=== PATIENT | female | born 1960 | race Caucasian/White ===

== ENCOUNTER 2020-04-24 10:02 | Outpatient (CLI) | payer OTHER, SELFPAY ==
--- NOTE | ~2020-04-24 | CT_ITS ---
EXAMINATION: CT chest abdomen pelvis w con DATE: 04/24/2020 11:17 INDICATION: Metastatic renal cell carcinoma TECHNIQUE: Transaxial computed tomographic images of the chest, abdomen, and pelvis were obtained aft er the administration of 100 cc of Omnipaque 350 intravenous contrast. The dose-length product (DLP) was 1094.51 mGy-cm. Automated exposure control and iterative reconstruction technique were employed. COMPARISON: 08/21/2019 FINDINGS: CHEST CT: There are changes of interval left upper lobectomy. There has been interval development of a 4.5 x 3. 1 cm soft tissue density in the aorticopulmonary window. The heart size is normal. There is no pleura l effusion or pneumothorax. There is a left paramediastinal rind of soft tissue density extending to the left hilum. There is mild thoracic spondylosis. ABDOMEN/PELVIS CT: Cysts of the liver measure up to 1.8 cm in the right hepatic lobe. The spleen, pancreas, and gallblad heather are normal. There are changes of right nephroureterectomy and right adrenalectomy. There is a sta ble adenoma of the left adrenal gland. The left kidney is unremarkable. No pathologically enlarged ab dominal or pelvic lymph nodes are identified. There is no free intraperitoneal gas or evidence of bow el obstruction. Streak artifact from bilateral hip arthroplasties limits evaluation of the pelvis. Th ere is severe lumbar spondylosis at L5-S1. IMPRESSION: 1. Changes of interval left upper lobectomy. 2. Soft tissue density mass in the aorticopulmonary window which could be postsurgical in nature carreno aleksandr is concerning for metastatic lymphadenopathy. 3. Left paramediastinal soft tissue density extending to the left hilum. Findings could also be posts urgical or metastatic disease. Reviewed, dictated and finalized at location A. IMPRESSION: 1. Changes of interval left upper lobectomy. 2. Soft tissue density mass in the aorticopulmonary window which could be posts urgical in nature however is concerning for metastatic lymphadenopathy. 3. Left paramediastinal soft tissue density extending to the left hilum. Findin gs could also be postsurgical or metastatic disease.
[2020-04-24 11:05] LABS: Estimated Glomerular Filt Rate > 60
== END 2020-04-24 10:03 | disposition home or self-care (01) ==
PROVIDERS: PCP Family Medicine
DX: C64.9 Malignant neoplasm of unspecified kidney, except renal pelvis (principal)
CPT/HCPCS: 36415; 71260; 74177; Q9967

== ENCOUNTER 2020-07-28 13:11 | Outpatient (CLI) | payer OTHER, SELFPAY ==
--- NOTE | ~2020-07-28 | MM_ITS ---
EXAMINATION: MM screening joe BI w jacquelin HISTORY: Screening mammogram TECHNIQUE: Craniocaudal and mediolateral oblique 3-D tomosynthesis images were obtained and synthetic 2-D images were generated. CAD analysis was submitted and interpreted. COMPARISON: 07/17/2019, 06/17/2018, 06/14/2017 bilateral digital screening mammogram examinations BREAST PARENCHYMAL COMPOSITION: There are scattered areas of fibroglandular density. FINDINGS: There is a biopsy marker on the right; history of prior right partial mastectomy and radiot herapy for breast cancer in 2004. Mild loss of volume of the right breast and stable fibroglandular asymmetry, unchanged since 07/17/2019 . There is no evidence of suspicious mass, calcification, or interval architectural distortion to sugge st malignancy in either breast. There has been no suspicious interval change. IMPRESSION: 1. No mammographic evidence of malignancy. 2. Recommend routine screening mammography in one year. BI-RADS Category 2: Benign finding(s). Reviewed, dictated and finalized at location A.
== END 2020-07-28 13:12 | disposition home or self-care (01) ==
PROVIDERS: PCP Family Medicine; Visit Provider Family Medicine
DX: Z12.31 Encounter for screening mammogram for malignant neoplasm of breast (principal)
CPT/HCPCS: 77063; 77067

== ENCOUNTER 2020-11-23 13:42 | Outpatient (CLI) | payer OTHER, SELFPAY ==
--- NOTE | ~2020-11-23 | DEXA_ITS ---
Bone Density Report Name: Suzette Shoemaker Age: 60 Sex: Female Ethnicity: White Date of : 1960 Indication: postmenopausal; history of glucocorticoids; cancer; Referring Provider: Javan Velasco Study: Bone densitometry was performed. Exam Date: November 23, 2020 Accession number: [id number] Bone Density: Region BMD T-score Z-score Classification AP Spine (L1-L4) 1.054 0.1 1.7 Normal World Health Organization criteria for BMD impression classify patients as: Normal (T-score at or above -1.0), Osteopenia (T-score between -1.0 and -2.5), or Osteoporosis (T-score at or below -2.5). Previous Exams: Region Exam Age BMD T-score BMD Change BMD Change Date g/cm2 vs Baseline vs Previous AP Spine(L1-L4) 11/23/2020 60 1.054 0.1 -0.075(-6.7%)# -0.075(-6.7%)# 05/02/2010 50 1.129 0.7 *Denotes significance at 95% confidence level, LSC for AP Spine = 0.022 g/cm2 Clinical Information Provided by Patient: Has taken Glucocorticoids Has the following medical conditions: Cancer Patient maximum height was 65 No regular weight bearing exercise Drinks caffeinated beverages Onset of menses at age 11 Number of children 1 Impression: The patient has normal bone mass. The patient has risk factors, including: history of glucocorticoid therapy. No significant bone loss was observed. Discussion: BONE DENSITY IS ABOVE THE MINIMUM DESIRABLE LEVEL AT ALL SKELETAL SITES TESTED. This patient?s bone mineral density is above the minimum desirable level (T-score -1.0 or better) at all sites measured. The patient should follow a healthful lifestyle (good nutrition with adequate calcium and vitamin D, and appropriate weight-bearing exercise). Follow-Up: Consider repeating this study in 5 years or sooner if there is some new clinical indication. Reported by: RUDDY on 11/23/2020 2:10:00 PM. Reviewed, dictated and finalized at location Anshu FRANKLIN
== END 2020-11-23 13:43 | disposition home or self-care (01) ==
PROVIDERS: PCP Family Medicine; Visit Provider Physician Assistant
DX: Z13.820 Encounter for screening for osteoporosis (principal); Z78.0 Asymptomatic menopausal state
CPT/HCPCS: 77080

== ENCOUNTER 2021-07-25 15:24 | Outpatient (CLI) | payer OTHER, SELFPAY ==
--- NOTE | ~2021-07-25 | MM_ITS ---
EXAMINATION: MM screening joe BI w jacquelin HISTORY: Screening TECHNIQUE: Craniocaudal and mediolateral oblique 3-D tomosynthesis images were obtained and synthetic 2-D images were generated. CAD analysis was submitted and interpreted. COMPARISON: Comparison to multiple prior studies sequentially, with oldest reviewed study dated 06/10. BREAST PARENCHYMAL COMPOSITION: There are scattered areas of fibroglandular density. FINDINGS: Bilateral breast asymmetries are stable. There is no evidence of suspicious mass, calcifica tion, or architectural distortion to suggest malignancy in either breast. There has been no suspiciou s interval change. IMPRESSION: 1. No mammographic evidence of malignancy. 2. Recommend routine screening mammography in one year. BI-RADS Category 1: Negative Reviewed, dictated and finalized at location A.
== END 2021-07-25 15:25 | disposition home or self-care (01) ==
LOC: ANHIMG 15:26
PROVIDERS: PCP Family Medicine; Visit Provider Family Medicine
DX: Z12.31 Encounter for screening mammogram for malignant neoplasm of breast (principal)
CPT/HCPCS: 77063; 77067

== ENCOUNTER 2022-08-16 11:28 | Outpatient (CLI) | payer OTHER, SELFPAY ==
--- NOTE | ~2022-08-16 | MM_ITS ---
EXAMINATION: MM screening joe BI w jacquelin HISTORY: Screening mammogram, family history of breast cancer in her sister. TECHNIQUE: Craniocaudal and mediolateral oblique 3-D tomosynthesis images were obtained and synthetic 2-D images were generated. CAD analysis was submitted and interpreted. COMPARISON: 07/25/2021, 07/28/2020, 07/17/2019 BREAST PARENCHYMAL COMPOSITION: There are scattered areas of fibroglandular density. FINDINGS: There are stable lumpectomy changes in the upper outer quadrant of the right breast. No enrike picious mass, calcification, or architectural distortion are identified in either breast to suggest m alignancy. There has been no suspicious interval change. IMPRESSION: 1. No mammographic evidence of malignancy. 2. Recommend routine screening mammography in one year. BI-RADS Category 2: Benign finding(s). Reviewed, dictated and finalized at location A.
== END 2022-08-16 11:29 | disposition home or self-care (01) ==
PROVIDERS: PCP Family Medicine; Visit Provider Family Medicine
DX: Z12.31 Encounter for screening mammogram for malignant neoplasm of breast (principal)
CPT/HCPCS: 77063; 77067

== ENCOUNTER 2023-09-05 15:09 | Outpatient (CLI) | payer OTHER, SELFPAY ==
--- NOTE | ~2023-09-05 | MM_ITS ---
EXAMINATION: MM screening joe BI w jacquelin HISTORY: Screening mammogram TECHNIQUE: Craniocaudal and mediolateral oblique 3-D tomosynthesis images were obtained and synthetic 2-D images were generated. CAD analysis was submitted and interpreted. COMPARISON: 09/16/2022, 07/25/2021, 07/28/2020 bilateral screening mammogram examinations BREAST PARENCHYMAL COMPOSITION: There are scattered areas of fibroglandular density. FINDINGS: Stable mild asymmetry in the upper mid outer right breast; history of prior right partial m astectomy for breast cancer. The greater in the very very. The There is no evidence of suspicious mas s, calcification, or architectural distortion to suggest malignancy in either breast. There has been no suspicious interval change. IMPRESSION: 1. No mammographic evidence of malignancy. 2. Recommend routine screening mammography in one year. BI-RADS Category 2: Benign finding(s). Reviewed, dictated and finalized at location A.
== END 2023-09-05 15:10 | disposition home or self-care (01) ==
LOC: ANHIMG 15:13
PROVIDERS: PCP Family Medicine; Visit Provider Family Medicine
DX: Z12.31 Encounter for screening mammogram for malignant neoplasm of breast (principal)
CPT/HCPCS: 77063; 77067

== ENCOUNTER → 2023-10-30 11:57 | Outpatient (CLI) | payer OTHER, SELFPAY ==
--- NOTE | ~2023-10-30 | XR_ITS ---
Left Knee Technique: AP, lateral, and sunrise views were obtained. Clinical History: Pain Findings: No fracture or dislocation is seen. There is moderate medial compartment degenerative gregg e, and mild to moderate lateral and patellofemoral compartment spurring. Soft tissues are unremarkabl e. No joint effusion is seen. Impression: Tricompartmental degenerative change, as above, worst in the medial compartment. Reviewed, dictated and finalized at location M. FLEET MANAGER Impression: Tricompartmental degenerative change, as above, worst in the medial compartment .
== END ==
PROVIDERS: PCP Physician Assistant; Visit Provider Physician Assistant
DX: M17.12 Unilateral primary osteoarthritis, left knee (principal)
CPT/HCPCS: 73562

== ENCOUNTER 2024-12-17 14:50 | Outpatient (CLI) | payer OTHER, SELFPAY ==
--- NOTE | ~2024-12-17 | MM_ITS ---
EXAMINATION: MM screening joe BI w jacquelin HISTORY: Screening TECHNIQUE: Craniocaudal and mediolateral oblique 3-D tomosynthesis images were obtained and synthetic 2-D images were generated. CAD analysis was submitted and interpreted. COMPARISON: Comparison to multiple prior studies sequentially, with oldest reviewed study dated 04/2018. BREAST PARENCHYMAL COMPOSITION: Not dense: There are scattered areas of fibroglandular density. FINDINGS: There is developing architectural distortion in the upper outer quadrant of the right breas t with associated asymmetry. The left breast is stable without evidence for malignancy. IMPRESSION: 1. Focal developing architectural distortion upper outer quadrant of the right breast. 2. Additional mammographic views and possible breast ultrasound are recommended. BI-RADS Category 0: Incomplete: Needs additional imaging evaluation. Reviewed, dictated and finalized at location B. IAL NEEDS TUTOR IMPRESSION: 1. Focal developing architectural distortion upper outer quadrant of the right breast. 2. Additional mammographic views and possible breast ultrasound are recommended . BI-RADS Category 0: Incomplete: Needs additional imaging evaluation.
--- OUTSIDE RECORDS SUMMARY | 2024-12-17 15:34 | XMS_ITS | Referral Summary ---
Author Organization [facility] Address [address] [place] [address] Care Team Providers Care Chimney Builder Brick Name Role Phone Myriam Jorgensen MD Primary Care Provider [phone] Source Comments [facility],non-owned Affiliates and Associated Physician Practices is amultiple site organization consisting of ambulatory clinics and hospital sitesin [place], [place], [place] and [place]. This disclosure is being madepursuant to the Care Everywhere program and may not contain all information available regarding this patient. Last updated 18.[facility] Encounters Date Type Department Care Team Description 12/09/2024 Travel 12/09/2024 9:30 AM SPANISH INTERPRETER/TRANSLATOR Office Visit [facility] - Nephrology [facility] [facility] [place] [phone] Kelly Coates, OPEN WINDER-Tito Ruiz MD Proteinuria, unspecified type; Metastatic renal cell carcinoma, unspecified laterality (HCC) 11/27/2024 Telephone [facility] - Hematology/Oncology [address] [place] [address] Wai Tse MD Medication Prior Auth Request; Medication Management 11/27/2024 Telephone [facility] - Hematology/Oncology [address] [place] [phone] Wai Tse MD Medication Prior Auth Request 11/07/2024 Refill [facility] - Hematology/Oncology [address] [place] [phone] Wai Tse MD Refill Request 11/07/2024 Telephone [facility] - Hematology/Oncology [address] [place] [phone] Kelly Coates APRN-CNP Follow-up 11/07/2024 Orders Only [facility] - Hematology/Oncology [address] [place] [phone] Kelly Coates APRN-CNP Proteinuria, unspecified type ; Metastatic renal cell carcinoma, unspecified laterality (HCC) 11/06/2024 Orders Only [facility] - Hematology/Oncology [address] [place] [phone] Kelly Coates APRN-CNP Proteinuria, unspecified type 10/23/2024 Telephone [facility] - Hematology/Oncology [address] [place] [phone] Kelly Coates APRN-PILOT BOAT OPERATOR Follow-up 10/23/2024 Telephone [facility] - Hematology/Oncology [address] [place] [phone] Kelly Coates APRN-CNP Abnormal Lab from Last 3 Months Allergies Active Allergy Reactions Criticality Noted Date Comments Hydrochlorothiazide Other 05/10/2022 She has severe low sodium with dosing (from 139>>126 in 1 week) Medications * Be aware that medications may not be up to date on this document. Alwaysverify current medications with the patient. Medication Sig Dispensed Refills Start Date End Date Status Multiple Vitamins-Minerals (DAILY COMBO MULTI VITAMINS PO) Take 1 tablet by mouth once daily Active BEVACIZUMAB IV Every 21 days Last dose in Jul 2024 Active losartan (COZAAR) 100 MG tablet Take 1 (one) tablet by mouth once daily 10/17/2013 Active rosuvastatin (Crestor) 20 MG tablet Take 1 (one) tablet by mouth once daily Active carvedilol CR 24hr (Coreg CR) 10 MG capsule Take 1 (one) capsule by mouth at bedtime Total dose = 30 mg nightly. 30 capsule 11 05/28/2024 Active carvedilol CR 24hr (Coreg CR) 20 MG capsule Take 1 (one) capsule by mouth at bedtime 30 capsule 9 07/22/2024 Active amLODIPine (Norvasc) 10 MG tabletIndications:Ma lignant neoplasm of right kidney, except renal pelvis (HCC),Hypertension, unspecified type TAKE 1 TABLET BY MOUTH EVERY DAY 90 tablet 3 11/07/2024 Active levothyroxine (Synthroid) 25 MCG tablet Take 1 (one) tablet by mouth once daily 10/23/2024 Active empagliflozin (Jardiance) 10 MG tablet Take 1 (one) tablet by mouth once daily for 60 days 30 tablet 1 12/09/2024 02/07/2025 Active Active Problems Problem Noted Date Diagnosed Date Gilbert syndrome 06/27/2022 Elevated liver enzymes 03/17/2021 Cancer, metastatic to lung 11/03/2019 Nonspecific abnormal electrocardiogram (ECG) (EK G) 11/03/2019 S/p nephrectomy 09/23/2019 Primary osteoarthritis of right hip 06/02/2019 Overview (03/17/2021): Added automatically from request for surgery [id number] Personal history of malignant neoplasm of breast 12/04/2014 Encounter for antineoplastic chemotherapy 2013 Malignant neoplasm of kidney excluding renal pel vis 09/25/2014 Primary malignant neoplasm 02/01/2014 Other pulmonary embolism without acute cor pulmo nale 06/17/2013 Immunizations Name Administration Dates Next Due [employer] primary monoval ent 12+ yr 0.3mL Purple cap 11/03/2021,12/27/2020,12/06/2020 HEP B VACCINE 08/25/2021 INFLUENZA VACCINE 08/18/2021 PNEUMOCOCCAL PPSV23 09/27/2014 Social History Tobacco Use Types Packs/Day Years Used Date Smoking Tobacco: Former Cigarettes Q uit: 07/28/1978 Smokeless Tobacco: Never Comments:only smoked occ in college Alcohol Use Standard Drinks/Week Comments Yes 1.7 (1 standard drink = 0.6 oz p ure alcohol) occ Sex and Gender Information Value Date Recorded Sex Assigned at Not on file Gender Identity Female 02/13/2024 7:42 AM CDT Sexual Orientation Not on file Last Filed Vital Signs Vital Sign Reading Time Taken Comments Blood Pressure 146/91 12/09/2024 9:57 AM SPANISH INTERPRETER/TRANSLATOR Pulse 78 12/09/2024 9:55 AM SPANISH INTERPRETER/TRANSLATOR Temperature 36.1 C (97 F) 12/09/2024 9:55 AM SPANISH INTERPRETER/TRANSLATOR Respiratory Rate 18 08/20/2024 9:56 AM CDT Oxygen Saturation 98% 12/09/2024 9:55 AM SPANISH INTERPRETER/TRANSLATOR Inhaled Oxygen Concentration - - Weight 94.3 kg (208 lb) 12/09/2024 9:55 AM SPANISH INTERPRETER/TRANSLATOR Height 165.1 cm (5' 5 ) 06/18/2024 10:23 AM CDT Body Mass Index 34.61 06/18/2024 10:23 AM CDT Functional Status Functional Status Response Date of Assess ment Is person deaf or have serious hearing difficult y? No 01/01/2020 Is person blind or have serious difficulty seein g? No 01/01/2020 Does person have serious dif ficulty walking/climbing stairs? No 01/01/2020 Does person have difficulty dressing/bathing? No 01/01/2020 Does person have difficulty doing errands alone? No 01/01/2020 Cognitive Status Response Date of Assessm ent Does person have difficulty concentrating/remembering/making decisions? No 01/01/2020 Plan of Treatment Upcoming Encounters Date Type Department Care Team (Late st Contact Info) Description 12/18/2024 9:30 AM SPANISH INTERPRETER/TRANSLATOR Appointment [facility] CAT SCAN [address] [place] [phone] Ronnie Mcqueen MD [address] [place] [address] 12/22/2024 12:20 PM SPANISH INTERPRETER/TRANSLATOR Appointment [facility] INFUSION CENTER [address] [place] [address] 12/22/2024 1:00 PM SPANISH INTERPRETER/TRANSLATOR Office Visit [facility] - Hematology/Oncology [address] [place] [phone] Wai Tse MD [address] [place] [address] OF HEMATOLOGY & [place] [address] 12/23/2024 9:00 AM SPANISH INTERPRETER/TRANSLATOR Appointment [facility] RAD ONC [address] [place] [address] Ronnie Mcqueen MD [address] [place] [address] 01/02/2025 1:15 PM SPANISH INTERPRETER/TRANSLATOR Appointment [facility] [address] [place] [address] Tito Schwartz MD [address] [place] [address] 01/12/2025 12:20 PM SPANISH INTERPRETER/TRANSLATOR Appointment [facility] INF[facility]ION CENTER [address] [place] [address] 01/13/2025 9:00 AM SPANISH INTERPRETER/TRANSLATOR Office Visit [facility] - Nephrology [address] [facility] [place] [address] Tito Schwartz MD [address] [place] [address] Goals Goal Patient Goal Type Associated Problems Recent Progress Patient-Stated? Author Medication Management General On track( 025 9:54 AM SPANISH INTERPRETER/TRANSLATOR) Adeola Grant, RN Note: Expected end date: ongoing Interventions: Take all medications as prescribed Procedures Procedure Name Priority Date/Time Associated Diagnosis Comments URINALYSIS REFLEX TO MICROSCOPIC NO CULTURE Routine 11/06/2024 11:56 AM SPANISH INTERPRETER/TRANSLATOR Proteinuria, unspecified type LAB RESULTS ORDER 11/06/2024 URINALYSIS REFLEX MICROSCOPIC REFLEX CULTURE Routine 09/24/2024 11:37 AM SPANISH INTERPRETER/TRANSLATOR Proteinuria, unspecified type Metastatic renal cell carcinoma, unspecified laterality (HCC) LAB RESULTS ORDER 09/24/2024 COMPREHENSIVE METABOLIC PANEL STAT 08/20/2024 9:52 AM CDT Malignant neoplasm of kidney excluding renal pelvis, unspecified laterality (HCC) HEPATITIS C RNA QUANTITATIVE Routine 03/17/2021 10:19 AM CDT Elevated liver enzymes from Last 3 Months or Most Recently Relevant to Health Maintenance Results * (ABNORMAL) URINALYSIS REFLEX TO MICROSCOPIC NO CULTURE (11/06/2024 11:56 AM SPANISH INTERPRETER/TRANSLATOR) Specific [place] UA 1.016 1.005 - 1.030 [facility] INSURANCE BILL pH UA 7.0 5.0 - 7.5 [facility] INSURANCE BILL Color UA Yellow Yellow [facility] INSURANCE BILL Appearance Clear Clear [facility] INSURANCE BILL Leukocyte UA Negative Negative [facility] INSURANCE BILL Protein UA 4+(A) Negative/Tra ce [facility] INSURANCE BILL Glucose UA Negative Negative [facility] INSURANCE BILL Ketone UA Negative Negative [facility] INSURANCE BILL Occult Blood Urine Trace(A) Negative [facility] INSURANCE BILL Bilirubin UA Negative Negative [facility] INSURANCE BILL Urobilinogen 0.2 0.2 - 1.0 mg/dL [facility] INSURANCE BILL Nitrite UA Negative Negative [facility] INSURANCE BILL Microscopic Examination Urine See below: [facility] INSURANCE BILL Comment: Microscopic was indicated and was performed. Performed at: [facility] [address] [id number] Bar Waiter/Waitress: Alejandro Doshi PhD, Phone: [phone] WBC UA 6-10(A) 0 - 5 /hpf [facility] INSURANCE BILL RBC UA 0-2 0 - 2 /hpf [facility] INSURANCE BILL Epithelial Cells (non renal) 0-10 0 - 10 /hpf [facility] INSURANCE BILL Casts ua None seen None seen /lpf [facility] INSURANCE BILL Bacteria UA Few None seen/Few [facility] INSURANCE BILL Urine URINE SPECIMEN OBTAINED BY CLEAN CATCH PROCEDURE / Unknown 11/06/2024 11:56 AM SPANISH INTERPRETER/TRANSLATOR 11/06/2024 Narrative [facility] INSURANCE BILL - 11/07/2024 5:35 AM SPANISH INTERPRETER/TRANSLATOR Performed at: [facility] [address] [id number] Bar Waiter/Waitress: Alejandro Doshi PhD, Phone: [phone] Kelly Coates OPEN WINDER-PILOT BOAT OPERATOR LAB - URINAL YSIS ORDERABLES [facility] INSURANCE BILL [address] [place] [address] * LAB RESULTS ORDER (11/06/2024) Only the most recent of2 resultswithin the time period is included. 11/06/2024 Narrative 11/06/2024 Ordered by an unspecified provider. Scanned Document LAB - THERAPEUTIC DR UG MONITORING ORDERABLES * (ABNORMAL) URINALYSIS REFLEX MICROSCOPIC REFLEX CULTURE (09/24/2024 11:37 AM SPANISH INTERPRETER/TRANSLATOR) Specific [place] UA 1.009 1.005 - 1.030 [facility] INSURANCE BILL pH UA 6.5 5.0 - 7.5 [facility] INSURANCE BILL Color UA Yellow Yellow [facility] INSURANCE BILL Appearance Clear Clear [facility] INSURANCE BILL Leukocyte UA Negative Negative [facility] INSURANCE BILL Protein UA 3+(A) Negative/Tra ce [facility] INSURANCE BILL Glucose UA Negative Negative [facility] INSURANCE BILL Ketone UA Negative Negative [facility] INSURANCE BILL Occult Blood Urine Negative Negative [facility] INSURANCE BILL Bilirubin UA Negative Negative [facility] INSURANCE BILL Urobilinogen 0.2 0.2 - 1.0 mg/dL [facility] INSURANCE BILL Nitrite UA Negative Negative [facility] INSURANCE BILL Microscopic Examination Urine See below: [facility] INSURANCE BILL Comment:Microscopic was diego cated and was performed. Urinalysis Reflex Comment [facility] INSURANCE BILL Comment: This specimen will not reflex to a Urine Culture. Performed at: - [facility] [address] [place], [place] [id number] Bar Waiter/Waitress: Alejandro Doshi PhD, Phone: [phone] WBC UA None seen 0 - 5 /hpf [facility] INSURANCE BILL RBC UA None seen 0 - 2 /hpf [facility] INSURANCE BILL Epithelial Cells (non renal) 0-10 0 - 10 /hpf [facility] INSURANCE BILL Casts ua None seen None seen /lpf [facility] INSURANCE BILL Bacteria UA None seen None seen/Few [facility] INSURANCE BILL Urine URINE SPECIMEN OBTAINED BY CLEAN CATCH PROCEDURE / Unknown 09/24/2024 11:37 AM SPANISH INTERPRETER/TRANSLATOR 09/24/2024 Narrative [facility] INSURANCE BILL - 09/25/2024 3:36 AM SPANISH INTERPRETER/TRANSLATOR Performed at: 01 - [facility] [address] [place], [place] [id number] Bar Waiter/Waitress: Alejandro Doshi PhD, Phone: [phone] Kelly Coates OPEN WINDER-PILOT BOAT OPERATOR LAB - URINAL YSIS ORDERABLES [facility] INSURANCE BILL [address] [place] [address] * (ABNORMAL) COMPREHENSIVE METABOLIC PANEL (08/20/2024 9:52 AM CDT) BUN 8 7 - 26 mg/dL 08/20/2024 10:33 AM [facility] Creatinine 0.90 0.56 - 0.96 mg/dL 08/20/2024 10:33 AM [facility] Sodium 139 136 - 145 mmol/L 08/20/2024 10:33 AM [facility] Potassium 4.7(H) 3.5 - 4.5 mmol/L 08/20/2024 10:33 AM [facility] Chloride 106 98 - 107 mmol/L 08/20/2024 10:33 AM [facility] CO2 24 22 - 29 mmol/L 08/20/2024 10:33 AM [facility] Glucose 93 70 - 115 mg/dL 08/20/2024 10:33 AM [facility] Calcium 10.5(H) 8.4 - 10.2 mg/dL 08/20/2024 10:33 AM [facility] Protein Total 7.4 6.0 - 8.3 g/dL 08/20/2024 10:33 AM [facility] Albumin 3.9 3.4 - 5.0 g/dL 08/20/2024 10:33 AM [facility] Bilirubin Total 2.3(H) 0.2 - 1.2 mg/dL 08/20/2024 10:33 AM CDT [facility] Alkaline Phosphatase 63 40 - 150 U/L 08/20/2024 10:33 AM T [facility] ALT 34 5 - 55 U/L 08/20/2024 10:33 AM [facility] AST 37(H) 5 - 34 U/L 08/20/2024 10:33 AM [facility] Anion Gap 9 6 - 16 08/20/2024 10:33 AM [facility] BUN/Creatinine Ratio 9 7 - 23 08/20/2024 10:33 AM [facility] Osmolality Calculated 286 275 - 295 mOsm/kg 08/20/2024 10:33 AM [facility] Albumin/Globulin Ratio 1.1 1.1 - 2.3 08/20/2024 10:33 AM [facility] eGFR by CKD-EPI 71(L) >=90 mL/min/1.7 3 m2 08/20/2024 10:33 AM [facility] Blood BLOOD SPECIMEN / Unknown Venipuncture / Unknown 08/20/2024 9:52 AM CDT 08/20/2024 10:20 AM CDT Wai Tse MD LAB - CHEMISTRY [place] [facility] Organization Address City/State/ZIP Co de Phone Number [facility] [address] [place] [phone], [facility] [phone] * HEPATITIS C RNA QUANTITATIVE (03/17/2021 10:19 AM CDT) Hepatitis C RNA PCR, Interp Not detected Not detected 03/21/2021 3:48 PM CDT [facility] Blood BLOOD SPECIMEN / Unknown Lab Venipuncture / Unknown 03/17/2021 10:19 AM CDT 03/17/2021 10:35 AM CDT Narrative [facility] - 03/21/2021 3:48 PM CDT The Hepatitis C viral (HCV) RNA analysis utilized a serum sample, real-time reverse box folding machine operator PCR, and is reported as Not Detected, Detected (<12 IU/mL), Quantity (IU/mL) or >100,000,000 IU/mL. The limit of quantitation of the assay is 12 IU/mL (100% of samples with this HCV RNA level were detected). The linear range is from 12 IU/mL to 100,000,000 IU/mL. Values less than 12 IU/mL are reported as Detected (<12 IU/mL). Values greater than 100,000,000 IU/mL are reported as > 100,000,000 IU/mL. The detection/quantitation of HCV RNA in serum is based on the isolation of HCV RNA with reverse box folding machine operator of genomic HCV RNA followed by real-time PCR in the presence of an unrelated RNA internal control. The internal control ensures that RNA is isolated, and that no general significant inhibitors of the RT-PCR process are present. The analysis was performed using a U.S. FDA approved test methodology ([employer] Real Time HCV). Jessica Padron OPEN WINDER-PILOT BOAT OPERATOR LAB - CHEMIS TRY ORDERABLES [facility] [address] [place], [place] [address], [facility] [phone] from Last 3 Months or Most Recently Relevant to Health Maintenance Advance Directives * Full Code (Latest Code Status on File) Date Activated Date Inactivated Comments 01/01/2020 1:07 PM 01/02/2020 11:33 AM Care Teams Chimney Builder Brick Relationship Specialty Start Date End Date Myriam Jorgensen MD [address] [place], [place] [id number] [facility] - General 10/16/22
--- OUTSIDE RECORDS SUMMARY | 2024-12-17 15:34 | XMS_ITS | Clinical Summary ---
Author Organization [facility] Address [address] [place] [address] Care Team Providers Care Operational Review Sergeant Name Role Phone Myriam Jorgensen MD Primary Care Provider [phone] Source Comments [facility],non-owned Affiliates and Associated Physician Practices is amultiple site organization consisting of ambulatory clinics and hospital sitesin [place], [place], [place] and [place]. This disclosure is being madepursuant to the Care Everywhere program and may not contain all information available regarding this patient. Last updated 18.[facility] Allergies Active Allergy Reactions Criticality Noted Date [...] (03/17/2021): Added automatically from request for surgery [id number] Personal history of malignant neoplasm of breast 12/04/2014 Encounter for antineoplastic chemotherapy 2013 Malignant neoplasm of kidney excluding renal pel vis 09/25/2014 Primary malignant neoplasm 02/01/2014 Other pulmonary embolism without acute cor pulmo nale 06/17/2013 Encounters Date Type Department Care Team Description 12/09/2024 9:30 AM PIANO REGULATOR INSPECTOR Office Visit [facility] - Nephrology [address] [facility] [place] [address] Kelly Coates, MRI TECHNICIAN-NIB ADJUSTER Tito Schwartz MD Proteinuria, unspecified type; Metastatic renal cell carcinoma, unspecified laterality (HCC) 12/09/2024 Travel 11/27/2024 Telephone [facility] - Hematology/Oncology [address] [place] [address] Wai Tse MD Medication Prior Auth Request; Medication Management 11/27/2024 Telephone [facility] - Hematology/Oncology [address] [place] [phone] Wai Tse MD Medication Prior Auth Request 11/07/2024 Refill [facility] - Hematology/Oncology [address] [place] [address] [phone] Wai Tse MD Refill Request 11/07/2024 Telephone [facility] - Hematology/Oncology [address] [place] [address] [phone] AminataJacquelyn elizabethndra, MRI TECHNICIAN-NIB ADJUSTER Follow-up 11/07/2024 Orders Only [facility] - Hematology/Oncology [address] [place] [address] [phone] AminataJacquelyn elizabethndra, MRI TECHNICIAN-NIB ADJUSTER Proteinuria, unspecified type ; Metastatic renal cell carcinoma, unspecified laterality (HCC) 11/06/2024 Orders Only [facility] - Hematology/Oncology [address] [place] [address] [phone] AminataJacquelynKelly, MRI TECHNICIAN-NIB ADJUSTER Proteinuria, unspecified type 10/23/2024 Telephone [facility] - Hematology/Oncology [address] [place] [address] [phone] AminataJacquelyn elizabethndra, MRI TECHNICIAN-NIB ADJUSTER Follow-up 10/23/2024 Telephone [facility] - Hematology/Oncology [address] [place] [address] [phone] Kelly Coates MRI TECHNICIAN-NIB ADJUSTER Abnormal Lab from Last 3 Months Immunizations Name Administration Dates Next Due Kimble primary monoval ent 12+ yr 0.3mL Purple cap 11/03/2021,12/27/2020,12/06/2020 HEP B VACCINE 08/25/2021 INFLUENZA VACCINE 08/18/2021 PNEUMOCOCCAL PPSV23 09/27/2014 Family History Medical History Relation Name Comments Arthritis Father Hypertension Father Status: d Other Father alzheimers Arthritis Mother Hypertension Mother Status: d Cancer Sister 1 Hepatitis ?type , possible progression to liver cancer None Known Sister 2 Status: Alive None Known Sister 3 Status: Alive None Known Sister 4 Status: Alive None Known Sister 5 Status: Alive None Known Sister 6 Status: Alive None Known Sister 7 Status: Alive Relation Name Status Comments Father Mother Sister 1 Sister 2 Sister 3 Sister 4 Sister 5 Sister 6 Sister 7 Social History Tobacco Use Types Packs/Day Years [...] Comments Blood Pressure 146/91 12/09/2024 9:57 AM PIANO REGULATOR INSPECTOR Pulse 78 12/09/2024 9:55 AM PIANO REGULATOR INSPECTOR Temperature 36.1 C (97 F) 12/09/2024 9:55 AM PIANO REGULATOR INSPECTOR Respiratory Rate 18 08/20/2024 9:56 AM CDT Oxygen Saturation 98% 12/09/2024 9:55 AM PIANO REGULATOR INSPECTOR Inhaled Oxygen Concentration - - Weight 94.3 kg (208 lb) 12/09/2024 9:55 AM PIANO REGULATOR INSPECTOR Height 165.1 cm (5' 5 ) 06/18/2024 10:23 AM CDT Body Mass Index 34.61 06/18/2024 10:23 AM CDT Plan of Treatment Upcoming Encounters Date Type Department Care Team (Late st Contact Info) Description 12/18/2024 9:30 AM PIANO REGULATOR INSPECTOR Appointment [facility] CAT SCAN [address] [place] [phone] Ronnie Mcqueen MD [address] [place] [address] 12/22/2024 12:20 PM PIANO REGULATOR INSPECTOR Appointment [facility] INFUSION CENTER [address] [place] [address] 12/22/2024 1:00 PM PIANO REGULATOR INSPECTOR Office Visit [facility] - Hematology/Oncology [address] [place] [phone] Wai Tse MD [address] [place] [address] OF HEMATOLOGY & [place] [address] 12/23/2024 9:00 AM PIANO REGULATOR INSPECTOR Appointment [facility] RAD ONC [address] [place] [address] Ronnie Mcqueen MD [address] [place] [address] 01/02/2025 1:15 PM PIANO REGULATOR INSPECTOR Appointment [facility] [address] [place] [phone] Tito Schwartz MD [facility] [place] [address] 01/12/2025 12:20 PM PIANO REGULATOR INSPECTOR Appointment [facility] INFUSION CENTER [address] [place] [address] 01/13/2025 9:00 AM PIANO REGULATOR INSPECTOR Office Visit [facility] - Nephrology [address] [facility] [place] [phone] Tito Schwartz MD [facility] [place] [address] Health Maintenance Due Date Last Done Comments BONE DENSITY TESTING 1960 COLOGUARD (AGES 45-75) - COLON CA SCREENING 1958 COLON MONITORING 1958 COLONOSCOPY - COLON CA SCREENING 1958 CT COLONOGRAPHY - COLON CA SCREENING 1960 Colorectal Cancer Screening 1958 FIT - COLON CA SCREENING 1958 FLEX SIG - COLON CA SCREENING 1958 MAMMOGRAM 1958 DTAP/TDAP/TD VACCINES (1 - Tdap) 1977 ZOSTER VACCINE (1 of 2) 01/21/2008 PNEUMOCOCCAL VACCINE 50+ (2 of 2 - PCV) 09/27/2015 09/27/2014 Respiratory Syncytial Virus (RSV) Vaccine Pt: or over 60 yrs (1 - Risk 60-74 years 1-dose series) 2018 HEPATITIS B VACCINE (2 of 3 - 19+ 3-dose series) 09/22/2021 08/25/2021 COVID-19 VACCINE ( season) 2024 11/03/2021, 12/27/2020, 12/06/2020 INFLUENZA VACCINE (#1) 2024 2, 08/18/2021, 08/19/2020, Additional history exists DEPRESSION SCREENING 11/12/2024 SCREENING FOR DIABETES 08/20/2027 4, 07/30/2024, 07/09/2024, Additional history exists HEPATITIS C SCREENING Completed 03/17/2021 HIB VACCINE Aged Out No longer eligi ble based on patient's age to complete this topic HPV VACCINE Aged Out No longer eligi ble based on patient's age to complete this topic MENINGOCOCCAL (Group B) VACCINE Aged Out No longer eligible based on patient's age to complete this topic MENINGOCOCCAL VACCINE Aged Out No binu rylan eligible based on patient's age to complete this topic Goals Goal Patient Goal Type Associated Problems Recent Progress Patient-Stated? Author Medication Management General On track( 025 9:54 AM PIANO REGULATOR INSPECTOR) Adeola Grant, RN Note: Expected end date: ongoing Interventions: Take all medications as prescribed Procedures Procedure Name Priority Date/Time Associated Diagnosis Comments URINALYSIS REFLEX TO MICROSCOPIC NO CULTURE Routine 11/06/2024 11:56 AM PIANO REGULATOR INSPECTOR Proteinuria, unspecified type LAB RESULTS ORDER 11/06/2024 URINALYSIS REFLEX MICROSCOPIC REFLEX CULTURE Routine 09/24/2024 11:37 AM PIANO REGULATOR INSPECTOR Proteinuria, unspecified type Metastatic renal cell carcinoma, [...] TO MICROSCOPIC NO CULTURE (11/06/2024 11:56 AM PIANO REGULATOR INSPECTOR) Specific [place] UA 1.016 1.005 - 1.030 [facility] INSURANCE [...] was indicated and was performed. Performed at: [address] [id number] Systems Security Consultant: Alejandro Doshi PhD, Phone: [phone] WBC UA 6-10(A) 0 - 5 /hpf [facility] INSURANCE BILL RBC UA 0-2 0 - 2 /hpf [facility] INSURANCE BILL Epithelial Cells (non renal) 0-10 0 - 10 /hpf [facility] INSURANCE BILL Casts ua None seen None seen /lpf [facility] INSURANCE BILL Bacteria UA Few None seen/Few [facility] INSURANCE BILL Urine URINE SPECIMEN OBTAINED BY CLEAN CATCH PROCEDURE / Unknown 11/06/2024 11:56 AM PIANO REGULATOR INSPECTOR 11/06/2024 Narrative [facility] INSURANCE BILL - 11/07/2024 5:35 AM PIANO REGULATOR INSPECTOR Performed at: [facility] [id number] Systems Security Consultant: Alejandro Doshi PhD, Phone: [phone] Kelly Coates MRI TECHNICIAN-NIB ADJUSTER LAB - URINAL YSIS ORDERABLES [facility] INSURANCE BILL [address] [place] [address] * LAB RESULTS ORDER (11/06/2024) Only the most recent of2 resultswithin the time period is included. 11/06/2024 Narrative 11/06/2024 Ordered by an unspecified provider. Scanned Document LAB - THERAPEUTIC DR UG MONITORING ORDERABLES * (ABNORMAL) URINALYSIS REFLEX MICROSCOPIC REFLEX CULTURE (09/24/2024 11:37 AM PIANO REGULATOR INSPECTOR) Specific [place] UA 1.009 1.005 - 1.030 [facility] INSURANCE [...] reflex to a Urine Culture. Performed at: [employer] [id number] Systems Security Consultant: Alejandro Doshi PhD, Phone: [phone] WBC UA None seen 0 - 5 [...] CATCH PROCEDURE / Unknown 09/24/2024 11:37 AM PIANO REGULATOR INSPECTOR 09/24/2024 Narrative [facility] INSURANCE BILL - 09/25/2024 3:36 AM PIANO REGULATOR INSPECTOR Performed at: [employer] [facility] [id number] Systems Security Consultant: Alejandro Doshi PhD, Phone: [phone] Kelly Coates MRI TECHNICIAN-NIB ADJUSTER LAB - URINAL YSIS ORDERABLES [facility] INSURANCE BILL [address] [place] [address] * (ABNORMAL) COMPREHENSIVE METABOLIC PANEL (08/20/2024 9:[address] [facility]) BUN 8 7 - 26 mg/dL 08/20/2024 10:33 AM [facility] Creatinine 0.90 0.56 - 0.96 mg/dL 08/20/2024 10:33 AM [facility] Sodium 139 136 - 145 mmol/L 08/20/2024 10:33 AM [facility] Potassium 4.7(H) 3.5 - 4.5 mmol/L 08/20/2024 10:33 AM [facility] Chloride 106 98 - 107 mmol/L 08/20/2024 10:33 AM [facility] CO2 24 22 - 29 mmol/L 08/20/2024 10:33 AM [facility] Glucose 93 70 - 115 mg/dL 08/20/2024 10:33 AM [facility] Calcium 10.5(H) 8.4 - 10.2 mg/dL 08/20/2024 10:33 AM [facility] Protein Total 7.4 6.0 - 8.3 g/dL 08/20/2024 10:33 AM [facility] Albumin 3.9 3.4 - 5.0 g/dL 08/20/2024 10:33 AM [facility] Bilirubin Total 2.3(H) 0.2 - 1.2 mg/dL 08/20/2024 10:33 AM [facility] Alkaline Phosphatase 63 40 - 150 U/L 08/20/2024 10:33 AM [facility] ALT 34 5 - 55 U/L 08/20/2024 10:33 AM [facility] AST 37(H) 5 - 34 U/L 08/20/2024 10:33 AM [facility] Anion Gap 9 6 - 16 08/20/2024 10:33 AM CDT [facility] BUN/Creatinine Ratio 9 7 - 23 08/20/2024 10:33 AM CDT [facility] Osmolality Calculated 286 275 - 295 mOsm/kg 08/20/2024 10:33 AM CDT [facility] Albumin/Globulin Ratio 1.1 1.1 - 2.3 08/20/2024 10:33 AM CDT [facility] eGFR by CKD-EPI 71(L) >=90 mL/min/1.7 3 m2 08/20/2024 10:33 AM CDT [facility] Blood BLOOD SPECIMEN / Unknown Venipuncture / Unknown 08/20/2024 9:52 AM CDT 08/20/2024 10:20 AM CDT Wai Tse MD LAB - CHEMISTRY [facility]NE[facility] Organization Address City/State/ZIP Co de Phone Number [facility] [address] [place] [address], [facility] [phone] * HEPATITIS C RNA QUANTITATIVE (03/17/2021 10:19 AM CDT) [facility] Hepatitis C RNA PCR, Interp Not detected Not detected 03/21/2021 3:48 PM CDT [facility] Blood BLOOD SPECIMEN / Unknown Lab Venipuncture / Unknown 03/17/2021 10:19 AM CDT 03/17/2021 10:35 AM CDT Narrative [facility] - 03/21/2021 3:48 PM CDT The Hepatitis C viral (HCV) RNA analysis utilized a serum sample, real-time reverse loss control representative PCR, and is reported as Not Detected, [...] the isolation of HCV RNA with reverse loss control representative of genomic HCV RNA followed by real-time PCR in the presence of an unrelated RNA internal control. The internal control ensures that RNA is isolated, and that no general significant inhibitors of the RT-PCR process are present. The analysis was performed using a U.S. FDA approved test methodology (Garcia Real Time HCV). Jessica Padron MRI TECHNICIAN-NIB ADJUSTER LAB - CHEMIS TRY ORDERABLES [facility] [address] [place] [address], [facility] [phone] from Last 3 Months or Most Recently Relevant to Health Maintenance Advance Directives * Full Code (Latest Code Status on File) Date Activated Date Inactivated Comments 01/01/2020 1:07 PM 01/02/2020 11:33 AM Care Teams Operational Review Sergeant Relationship Specialty Start Date End Date Myriam Jorgensen MD [address] [place], [place] [id number] PCP - General 10/16/22
--- OUTSIDE RECORDS SUMMARY | 2024-12-17 15:35 | XMS_ITS | Clinical Summary ---
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 Active amLODIPine (NORVASC) 10 mg tablet TK 1 T PO QD 0 Active Active Problems Problem Noted Date Diagnosed Date S/p nephrectomy 09/23/2019 Primary osteoarthritis of right hip 06/02/2019 Overview (06/02/2019): Added automatically from request for surgery [id number] Primary malignant neoplasm 02/01/2014 Other pulmonary embolism without acute cor pulmo nale 06/17/2013 Resolved Problems Problem Noted Date Diagnosed Date Resolved Date Carcinoma of kidney 06/22/2016 09/23/20 19 Personal history of malignan t neoplasm of breast 12/04/2014 09/23/2019 Encounter for antineoplastic chemotherapy 09/27/2014 09/23/2019 Malignant neoplasm of kidney excluding renal pelvis 09/25/2014 09/23/2019 Surgical follow-up care 06/11/201309/12 Arthralgia of hip 04/17/2011 09/23/2019 Breast cancer, female 04/06/20062018 Immunizations Name Administration Dates Next Due Influenza, Unspecified 08/12/2019 Surgical History Surgery Date Site/Laterality Comments SECTION 11/12/1998 - 11/11/1999 PARATHYROIDECTOMY 11/12/1996 - 11/11/1997 BREAST LUMPECTOMY TOTAL HIP ARTHROPLASTY 2010- left NEPHRECTOMY 05/12/2013 Open radical right nephrectomy, with vena caval tumor thrombus excision and retroperitoneal lymphadenectomy BREAST BIOPSY COLONOSCOPY PORTACATH PLACEMENT PORT REMOVAL Medical History Medical History Date Comments Aftercare following joint re placement surgery Aftercare following joint replacement - (Added by TW Conv) Arthritis Hypercholesteremia Chronic kidney disease History of cancer chemotherapy 2014 History of therapeutic radiation 2005 Hypertension Cancer (CMS/HCC) (HCC) Family History Medical History Relation Name Comments Arthritis Father Hypertension Father Arthritis Mother Heart disease Mother Hypertension Mother Relation Name Status Comments Father Mother Social History Tobacco Use Types Packs/Day Years Used Date Smoking Tobacco: Former Cigarettes 0.1 2 1 978 - 1979 Smokeless Tobacco: Never Comments No Sex and Gender Information Value Date Recorded Sex Assigned at Not on file Legal Sex Female 11:13 AM RECORDIST Gender Identity Not on file Sexual Orientation Not on file Obstetrics History Last Filed Vital Signs Vital Sign Reading Time Taken Comments Blood Pressure 127/58 09/24/2019 2:58 PM RECORDIST Pulse 74 09/24/2019 2:58 PM RECORDIST Temperature 36.8 C (98.2 F) 09/24/2019 11:27 AM RECORDIST Respiratory Rate 18 09/24/2019 11:27 AM RECORDIST Oxygen Saturation 96% 09/24/2019 2:58 PM RECORDIST Inhaled Oxygen Concentration - - Weight 86.3 kg (190 lb 3.2 oz) 10/19/2020 9:55 A M RECORDIST Height 161.3 cm (5' 3.5 ) 10/19/2020 9:55 AM RECORDIST Body Mass Index 33.16 10/19/2020 9:55 AM RECORDIST Plan of Treatment Health Maintenance Due Date Last Done Comments Breast Cancer Screening-Mammogram 1960 Colon Cancer Screening-Colonoscopy 1958 Depression Screening 1958 Fall Risk Assessment 1960 Hepatitis C Screening 1960 Osteoporosis Screening-Bone Density Scan 1960 Pneumococcal vaccine 65+ (2 of 2 - PCV) 09/27/2015 09/27/2014 Zoster Vaccine (1 of 2) 08/17/2016 06/22/2016 Well Visit 65+ 2023 Covid-19 Vaccine (4 - 2023-2 5 season) 2024 11/03/2021, 12/27/2020, 12/06/2020 Influenza Vaccine (#1) 2024 , 08/12/2019, 08/07/2019, Additional history exists DTaP/Tdap/Td Vaccine (3 - Td or Tdap) 04/23/2027 04/23/2017, 03/20/2007 Medical Devices Implanted Type Area Winding Inspector Device Identifier Shelf Expiration Date Model / Serial / Lot [employer] 8936-1922 Screw Bone Trident Ii L25mm Od6.5mm Low Profile Hexagonal Sterile - S0 - [id number] Implanted:Qty: 1 on 09/23/2019 by Heber Whittaker MD at [facility] Screw Right: Hip [employer] [id number] 05/05/2024 8416-1801 / 0 / [id number] Description: Hip Left: Hip [employer] 6078-3510 Screw Bone Trident Ii L30mm Od6.5mm Low Profile Hexagonal Sterile - S0 - [id number] Implanted:Qty: 1 on 09/23/2019 by Heber Whittaker MD at [facility] Right: Hip [employer] [id number] 05/27/2024 9466-9541 / 0 / [id number] Description: [employer] 702-04-58f Shell Acetabular Trident Ii Tritanium F Od58mm Hip 5 Screw Hole Cluster Sterile - S0 - [id number] Implanted:Qty: 1 on 09/23/2019 by Heber Whittaker MD at [facility] Right: Hip [employer] [id number] 04/14/2024 702-04-58F / 0 / [id number] Description: [employer] 623-00-36f 36mm 7.9mm Hip 0d F Liner Acetabular X3 - S0 - [id number] Implanted:Qty: 1 on 09/23/2019 by Heber Whittaker MD at [facility] Right: Hip [employer] [id number] 06/14/2024 623-00-36F / 0 / [id number] Description: [employer] [id number] Accolade 102mm 30mm Modular Hip 127d 3 Taper Stem Femoral Sterile - S0 - [id number] Implanted:Qty: 1 on 09/23/2019 by Heber Whittaker MD at [facility] Right: Hip [employer] [id number] / 0 / [id number] Description: [employer] 6570-0-236 V40 36mm Anatomic Hip +5mm Offset Taper Head Femoral [employer] Delta - [id number] Implanted:Qty: 1 on 09/23/2019 by Heber Whittaker MD at [facility] Right: Hip [employer] [id number] 07/29/2024 6570-0-236 / / [id number] Description: Insurance [facility] CHOICE PLUS [facility] CHOICE PLUS Advance Directives For more information, please contact: [phone] * Full Code (Latest Code Status on File) Date Activated Date Inactivated Comments 09/23/2019 4:16 PM 09/24/2019 10:29 PM Care Teams Manager Steel Relationship Specialty Start Date End Date Marycarmen Ruiz MD PCP - General Family Practice 04/28/19
--- OUTSIDE RECORDS SUMMARY | 2024-12-17 15:35 | XMS_ITS | Referral Summary ---
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 Active amLODIPine (NORVASC) 10 mg tablet TK 1 T PO QD 0 Active Active Problems Problem Noted Date Diagnosed Date S/p nephrectomy 09/23/2019 Primary osteoarthritis of right hip 06/02/2019 Overview (06/02/2019): Added automatically from request for surgery [id number] Primary malignant neoplasm 02/01/2014 Other pulmonary embolism [...] Administration Dates Next Due Influenza, Unspecified 08/12/2019 Social History Tobacco Use Types Packs/Day Years Used Date Smoking Tobacco: Former Cigarettes 0.1 2 1 978 - 1980 Smokeless Tobacco: Never Comments No Sex and Gender Information Value Date Recorded Sex Assigned at Not on file Legal Sex Female 11:13 AM FOREST TECHNOLOGY PROFESSOR Gender Identity Not on file Sexual Orientation Not on file Last Filed Vital Signs Vital Sign Reading Time Taken Comments Blood Pressure 127/58 09/24/2019 2:58 PM FOREST TECHNOLOGY PROFESSOR Pulse 74 09/24/2019 2:58 PM FOREST TECHNOLOGY PROFESSOR Temperature 36.8 C (98.2 F) 09/24/2019 11:27 AM FOREST TECHNOLOGY PROFESSOR Respiratory Rate 18 09/24/2019 11:27 AM FOREST TECHNOLOGY PROFESSOR Oxygen Saturation 96% 09/24/2019 2:58 PM FOREST TECHNOLOGY PROFESSOR Inhaled Oxygen Concentration - - Weight 86.3 kg (190 lb 3.2 oz) 10/19/2020 9:55 A M [employer]EST TECH[employer]OLOGY PROFESSOR Height 161.3 cm (5' 3.5 ) 10/19/2020 9:55 AM FOREST TECHNOLOGY PROFESSOR Body Mass Index 33.16 10/19/2020 9:55 AM FOREST TECHNOLOGY PROFESSOR Plan of Treatment Not on file Medical Devices Implanted Type Area Synthetic Resin Operator Device Identifier Shelf Expiration Date Model / Serial / Lot [employer] [id number] Screw Bone Trident Ii L25mm Od6.5mm Low Profile Hexagonal Sterile - S0 - [id number] Implanted:Qty: 1 on 09/23/2019 by Heber Whittaker MD at [facility] Screw Right: Hip [employer] [id number] 05/05/2024 4243-0205 / 0 / [id number] Description: Hip Left: Hip [employer] [id number] Screw Bone Trident Ii L30mm Od6.5mm Low Profile Hexagonal Sterile - S0 - [id number] Implanted:Qty: 1 on 09/23/2019 by Heber Whittaker MD at [facility] Right: Hip [employer] [id number] 05/27/2024 4676-3294 / 0 / [id number] Description: [employer] 702-04-58f Shell Acetabular Trident Ii Tritanium F Od58mm Hip 5 Screw Hole Cluster Sterile - S0 - [id number] Implanted:Qty: 1 on 09/23/2019 by Heber Whittaker MD at [facility] Right: Hip [employer] [id number] 04/14/2024 702-04-58F / 0 / [id number] Description: [employer] 623-00-36f 36mm 7.9mm Hip 0d F Liner Acetabular X3 - S0 - [id number] Implanted:Qty: 1 on 09/23/2019 by Heber Whittaker MD at [facility] Right: Hip [employer] [id number] 06/14/2024 623-00-36F / 0 / [id number] Description: [employer] [id number] Accolade 102mm 30mm Modular Hip 127d 3 Taper Stem Femoral Sterile - S0 - [id number] Implanted:Qty: 1 on 09/23/2019 by Heber Whittaker MD at [facility] Right: Hip [employer] [id number] / 0 / [id number] Description: [employer] 6570-0-236 V40 36mm Anatomic Hip +5mm Offset Taper Head Femoral [employer] Delta - [id number] Implanted:Qty: 1 on 09/23/2019 by Heber Whittaker MD at [facility] Right: Hip [employer] [id number] 07/29/2024 6570-0-236 / / [id number] Description:kf Insurance [facility] PLUS [facility] PLUS Advance Directives For more information, please contact: [phone] * Full Code (Latest Code Status on File) Date Activated Date Inactivated Comments 09/23/2019 4:16 PM 09/24/2019 10:29 PM Care Teams Nuclear Physician Relationship Specialty Start Date End Date Marycarmen Ruiz MD PCP - General Family Practice 04/28/19
--- OUTSIDE RECORDS SUMMARY | 2024-12-17 15:35 | XMS_ITS | Encounter Summary ---
Author Organization [facility] Address [address] [place] [address] Care Team Providers Care Fireworks Display Specialist Name Role Phone Marycarmen Pascal MD Primary Care Provider [phone] Myriam Jorgensen MD Primary Care Provider + Marycarmen Pascal MD Primary Care Provider [phone] Myriam Jorgensen MD Primary Care Provider + Marycarmen Pascal MD Primary Care Provider + Myriam Jorgensen MD Primary Care Provider + Allyson Snowden Primary Care Provider + Myriam Jorgensen MD Primary Care Provider + Encounter Details Date Type Department Care Team (Late st Contact Info) Description 01/06/2020 Lab Requisition [facility] Care Pathology Lab [address] [place] [address] Johnie Mendiola MD [address] [place] [address] Social History Tobacco Use Types Packs/Day Years [...] AM CDT Sexual Orientation Not on file documented as of this encounter Functional Status Functional Status Response Date of [...] person have difficulty concentrating/remembering/making decisions? No 01/01/2020 documented as of this encounter Plan of Treatment Upcoming Encounters Date Type Department Care Team (Late st Contact Info) Description 12/18/2024 9:30 AM MUSIC PROMOTER Appointment [facility] [address] [place] [phone] Ronnie Mcqueen MD [address] [place] [address] 12/22/2024 12:20 PM MUSIC PROMOTER Appointment [facility] [address] [place] [phone] 12/22/2024 1:00 PM MUSIC PROMOTER Office Visit [facility] - Hematology/Oncology [address] [place] [phone] Wai Tse MD [address] [place] [address] OF HEMATOLOGY & [place] [address] 12/23/2024 9:00 AM MUSIC PROMOTER Appointment [facility] [address] [place] [phone] Ronnie Mcqueen MD [address] [place] [address] 01/02/2025 1:15 PM MUSIC PROMOTER Appointment [facility] [address] [place] [phone] Tito Schwartz MD [address] [place] [address] 01/12/2025 12:20 PM MUSIC PROMOTER Appointment [facility] [address] [place] [address] 01/13/2025 9:00 AM MUSIC PROMOTER Office Visit [facility] - Nephrology [address] [facility] [place] [address] Tito Schwartz MD [address] [place] [address] documented as of this encounter Procedures Procedure Name Priority Date/Time Associated Diagnosis Comments SLIDE PREP HISTOLOGY Routine 01/01/2020 8:42 AM MUSIC PROMOTER documented in this encounter Results * SLIDE PREP HISTOLOGY (01/01/2020 8:42 AM MUSIC PROMOTER) Client Specimen ID # [id number] 01/07/2020 6:02 PM MUSIC PROMOTER [facility] PATHOLOGY LAB Number of Blocks Received 0 01/07/2020 6:02 PM MUSIC PROMOTER [facility] Number of Slides 1 01/07/2020 6:02 PM MUSIC PROMOTER [facility] LAB Number of Control Slides 1 01/07/2020 6:02 PM MUSIC PROMOTER [facility] PATHOLOGY LAB Pathology/Cytolo gy BIOPSY OF LUNG / Unknown 01/01/2020 8:42 AM MUSIC PROMOTER 01/06/2020 3:30 PM MUSIC PROMOTER Johnie Baum MD LAB - PATHOLOGY/CYTO LOGY ORDERABLES [facility] PATHOLOG[facility] LAB [address] [facility] [phone] documented in this encounter Visit Diagnoses Not on filedocumented in this encounter Care Teams Fireworks Display Specialist Relationship Specialty Start Date End Date Marycarmen Pascal MD PCP - General 03/27/19 06/21/21 [place] [address] [place] [phone] PCP - General Family Medicine 06/22/21 09/03/21 Marycarmen Pascal MD PCP - General 09/04/21 10/18/21 [place] [address] [place] [id number] PCP - General Family Medicine 10/19/21 10/19/21 Marycarmen Pascal MD PCP - General 10/20/21 12/08/21 [place] [address] [place] [phone] PCP - General Family Medicine 12/09/21 10/11/22 [place] [address] [place] [phone] PCP - General Physician Registered Health Nurse 10/12/22 10/15/22 [place] [address] [place] [address] PCP - General 10/16/22 documented as of this encounter
--- OUTSIDE RECORDS SUMMARY | 2024-12-17 15:35 | XMS_ITS | Patient Health Summary ---
Author Organization [facility] [place] [facility] Address [address] [place] [address] Care Team Providers Care [place] Man Name Role Phone Myriam Jorgensen MD Primary Care Provider [phone] Note from [facility],non-owned Affiliates and Associated Physician Practices is amultiple site organization consisting of ambulatory clinics and hospital sitesin [place], [place], [place] and [place]. This disclosure is being madepursuant to the Care Everywhere program and may not contain all information available regarding this patient. Last updated 18.[facility] Allergies * Hydrochlorothiazide(Other) Medications * Be aware that medications may not be up to date on this document. Alwaysverify current medications with the patient. * Multiple Vitamins-Minerals (DAILY COMBO MULTI VITAMINS PO) Take 1 tablet by mouth once daily * BEVACIZUMAB IV Every 21 days Last dose in Jul 2024 * losartan (COZAAR) 100 MG tablet(Started 10/17/2013) Take 1 (one) tablet by mouth once daily * rosuvastatin (Crestor) 20 MG tablet Take 1 (one) tablet by mouth once daily * carvedilol CR 24hr (Coreg CR) 10 MG capsule(Started 05/28/2024) Take 1 (one) capsule by mouth at bedtime Total dose = 30 mg nightly. 11 refills by 05/28/2025 * carvedilol CR 24hr (Coreg CR) 20 MG capsule(Started 07/22/2024) Take 1 (one) capsule by mouth at bedtime 9 refills by 07/22/2025 * amLODIPine (Norvasc) 10 MG tablet(Started 11/07/2024) TAKE 1 TABLET BY MOUTH EVERY DAY 3 refills by 11/07/2025 * levothyroxine (Synthroid) 25 MCG tablet(Started 10/23/2024) Take 1 (one) tablet by mouth once daily * empagliflozin (Jardiance) 10 MG tablet(Started 12/09/2024) Take 1 (one) tablet by mouth once daily for 60 days 1 refill by 12/09/2025 Active Problems Problem Noted Date Diagnosed Date Gilbert syndrome 06/27/2022 Elevated liver enzymes 03/17/2021 Cancer, metastatic to lung 11/03/2019 Nonspecific abnormal electrocardiogram (ECG) (EK G) 11/03/2019 S/p nephrectomy 09/23/2019 Primary osteoarthritis of right hip 06/02/2019 Personal history of malignant neoplasm of breast 12/04/2014 Encounter for antineoplastic chemotherapy 2013 Malignant neoplasm of kidney excluding renal pel vis 09/25/2014 Primary malignant neoplasm 02/01/2014 Other pulmonary embolism without acute cor pulmo nale 06/17/2013 Immunizations * Covid Pfizer primary monovalent 12+ yr 0.3mL Purple cap(Given 11/03/2021, 12/27/2020, 12/06/2020) * HEP B VACCINE(Given 08/25/2021) * INFLUENZA VACCINE(Given 08/18/2021) * PNEUMOCOCCAL PPSV23(Given 09/27/2014) Social History Tobacco Use Types Packs/Day Years [...] Comments Blood Pressure 146/91 12/09/2024 9:57 AM [employer] Pulse 78 12/09/2024 9:55 AM [employer] Temperature 36.1 C (97 F) 12/09/2024 9:55 AM [employer] Respiratory Rate 18 08/20/2024 9:56 AM CDT Oxygen Saturation 98% 12/09/2024 9:55 AM [employer] Inhaled Oxygen Concentration - - Weight 94.3 kg (208 lb) 12/09/2024 9:55 AM [employer] Height 165.1 cm (5' 5 ) 06/18/2024 10:23 AM CDT Body Mass Index 34.61 06/18/2024 10:23 AM CDT Procedures * URINALYSIS REFLEX TO MICROSCOPIC NO CULTURE(Performed 11/06/2024) Performed for Proteinuria, unspecified type * LAB RESULTS ORDER(Performed 11/06/2024) * URINALYSIS REFLEX MICROSCOPIC REFLEX CULTURE(Performed 09/24/2024) Performed for Proteinuria, unspecified type, Metastatic renal cell carcinoma, unspecified laterality (HCC) * LAB RESULTS ORDER(Performed 09/24/2024) * URINALYSIS REFLEX TO MICROSCOPIC NO CULTURE(Performed 09/03/2024) Performed for Proteinuria, unspecified type, Metastatic renal cell carcinoma, unspecified laterality (HCC) * PROTEIN URINE TIMED QUANTITATIVE(Performed 08/20/2024) * URINALYSIS NO MICROSCOPIC NO CULTURE(Performed 08/20/2024) Performed for Malignant neoplasm of kidney excluding renal pelvis, unspecified laterality (HCC) * COMPREHENSIVE METABOLIC PANEL(Performed 08/20/2024) Performed for Malignant neoplasm of kidney excluding renal pelvis, unspecified laterality (HCC) * CBC W AUTO DIFFERENTIAL(Performed 08/20/2024) Performed for Malignant neoplasm of kidney excluding renal pelvis, unspecified laterality (HCC) * MAGNESIUM BLOOD(Performed 08/20/2024) Performed for Malignant neoplasm of kidney excluding renal pelvis, unspecified laterality (HCC) * CT CHEST ABDOMEN PELVIS W CONT(Performed 08/08/2024) Performed for 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), Malignant neoplasm of right kidney,except renal pelvis (HCC) * URINALYSIS NO MICROSCOPIC NO CULTURE(Performed 07/30/2024) Performed for Malignant neoplasm of kidney excluding renal pelvis, unspecified laterality (HCC) * COMPREHENSIVE METABOLIC PANEL(Performed 07/30/2024) Performed for Malignant neoplasm of kidney excluding renal pelvis, unspecified laterality (HCC) * CBC W AUTO DIFFERENTIAL(Performed 07/30/2024) Performed for Malignant neoplasm of kidney excluding renal pelvis, unspecified laterality (HCC) * MAGNESIUM BLOOD(Performed 07/30/2024) Performed for Malignant neoplasm of kidney excluding renal pelvis, unspecified laterality (HCC) * URINALYSIS NO MICROSCOPIC NO CULTURE(Performed 07/09/2024) Performed for Malignant neoplasm of kidney excluding renal pelvis, unspecified laterality (HCC) * COMPREHENSIVE METABOLIC PANEL(Performed 07/09/2024) Performed for Malignant neoplasm of kidney excluding renal pelvis, unspecified laterality (HCC) * CBC W AUTO DIFFERENTIAL(Performed 07/09/2024) Performed for Malignant neoplasm of kidney excluding renal pelvis, unspecified laterality (HCC) * MAGNESIUM BLOOD(Performed 07/09/2024) Performed for Malignant neoplasm of kidney excluding renal pelvis, unspecified laterality (HCC) * COMPREHENSIVE METABOLIC PANEL(Performed 06/18/2024) Performed for Malignant neoplasm of kidney excluding renal pelvis, unspecified laterality (HCC) * MAGNESIUM BLOOD(Performed 06/18/2024) Performed for Malignant neoplasm of kidney excluding renal pelvis, unspecified laterality (HCC) * URINALYSIS NO MICROSCOPIC NO CULTURE(Performed 06/18/2024) Performed for Malignant neoplasm of kidney excluding renal pelvis, unspecified laterality (HCC) * CBC W AUTO DIFFERENTIAL(Performed 06/18/2024) Performed for Malignant neoplasm of kidney excluding renal pelvis, unspecified laterality (HCC) * URINALYSIS NO MICROSCOPIC NO CULTURE(Performed 05/28/2024) Performed for Malignant neoplasm of kidney excluding renal pelvis, unspecified laterality (HCC) * COMPREHENSIVE METABOLIC PANEL(Performed 05/28/2024) Performed for Malignant neoplasm of kidney excluding renal pelvis, unspecified laterality (HCC) * CBC W AUTO DIFFERENTIAL(Performed 05/28/2024) Performed for Malignant neoplasm of kidney excluding renal pelvis, unspecified laterality (HCC) * MAGNESIUM BLOOD(Performed 05/28/2024) Performed for Malignant neoplasm of kidney excluding renal pelvis, unspecified laterality (HCC) * URINALYSIS NO MICROSCOPIC NO CULTURE(Performed 05/07/2024) Performed for Malignant neoplasm of kidney excluding renal pelvis, unspecified laterality (HCC) * COMPREHENSIVE METABOLIC PANEL(Performed 05/07/2024) Performed for Malignant neoplasm of kidney excluding renal pelvis, unspecified laterality (HCC) * CBC W AUTO DIFFERENTIAL(Performed 05/07/2024) Performed for Malignant neoplasm of kidney excluding renal pelvis, unspecified laterality (HCC) * MAGNESIUM BLOOD(Performed 05/07/2024) Performed for Malignant neoplasm of kidney excluding renal pelvis, unspecified laterality (HCC) * COMPREHENSIVE METABOLIC PANEL(Performed 04/16/2024) Performed for Malignant neoplasm of kidney excluding renal pelvis, unspecified laterality (HCC) * CBC W AUTO DIFFERENTIAL(Performed 04/16/2024) Performed for Malignant neoplasm of kidney excluding renal pelvis, unspecified laterality (HCC) * MAGNESIUM BLOOD(Performed 04/16/2024) Performed for Malignant neoplasm of kidney excluding renal pelvis, unspecified laterality (HCC) * URINALYSIS NO MICROSCOPIC NO CULTURE(Performed 04/16/2024) Performed for Malignant neoplasm of kidney excluding renal pelvis, unspecified laterality (HCC) * CT CHEST ABDOMEN PELVIS W CONT(Performed 04/03/2024) Performed for Malignant neoplasm of right kidney, except renal pelvis (HCC) * CBC W AUTO DIFFERENTIAL(Performed 03/26/2024) Performed for Malignant neoplasm of kidney excluding renal pelvis, unspecified laterality (HCC) * URINALYSIS NO MICROSCOPIC NO CULTURE(Performed 03/26/2024) Performed for Proteinuria, unspecified type, Metastatic renal cell carcinoma, unspecified laterality (HCC) * URINALYSIS NO MICROSCOPIC NO CULTURE(Performed 03/26/2024) Performed for Malignant neoplasm of kidney excluding renal pelvis, unspecified laterality (HCC) * COMPREHENSIVE METABOLIC PANEL(Performed 03/26/2024) Performed for Malignant neoplasm of kidney excluding renal pelvis, unspecified laterality (HCC) * MAGNESIUM BLOOD(Performed 03/26/2024) Performed for Malignant neoplasm of kidney excluding renal pelvis, unspecified laterality (HCC) * URINALYSIS NO MICROSCOPIC NO CULTURE(Performed 03/05/2024) Performed for Malignant neoplasm of kidney excluding renal pelvis, unspecified laterality (HCC) * COMPREHENSIVE METABOLIC PANEL(Performed 03/05/2024) Performed for Malignant neoplasm of kidney excluding renal pelvis, unspecified laterality (HCC) * CBC W AUTO DIFFERENTIAL(Performed 03/05/2024) Performed for Malignant neoplasm of kidney excluding renal pelvis, unspecified laterality (HCC) * MAGNESIUM BLOOD(Performed 03/05/2024) Performed for Malignant neoplasm of kidney excluding renal pelvis, unspecified laterality (HCC) * URINALYSIS NO MICROSCOPIC NO CULTURE(Performed 02/13/2024) Performed for Malignant neoplasm of kidney excluding renal pelvis, unspecified laterality (HCC) * COMPREHENSIVE METABOLIC PANEL(Performed 02/13/2024) Performed for Malignant neoplasm of kidney excluding renal pelvis, unspecified laterality (HCC) * CBC W AUTO DIFFERENTIAL(Performed 02/13/2024) Performed for Malignant neoplasm of kidney excluding renal pelvis, unspecified laterality (HCC) * MAGNESIUM BLOOD(Performed 02/13/2024) Performed for Malignant neoplasm of kidney excluding renal pelvis, unspecified laterality (HCC) * URINALYSIS NO MICROSCOPIC NO CULTURE(Performed 01/23/2024) Performed for Malignant neoplasm of kidney excluding renal pelvis, unspecified laterality (HCC) * COMPREHENSIVE METABOLIC PANEL(Performed 01/23/2024) Performed for Malignant neoplasm of kidney excluding renal pelvis, unspecified laterality (HCC) * CBC W AUTO DIFFERENTIAL(Performed 01/23/2024) Performed for Malignant neoplasm of kidney excluding renal pelvis, unspecified laterality (HCC) * MAGNESIUM BLOOD(Performed 01/23/2024) Performed for Malignant neoplasm of kidney excluding renal pelvis, unspecified laterality (HCC) * URINALYSIS NO MICROSCOPIC NO CULTURE(Performed 01/02/2024) Performed for Malignant neoplasm of kidney excluding renal pelvis, unspecified laterality (HCC) * COMPREHENSIVE METABOLIC PANEL(Performed 01/02/2024) Performed for Malignant neoplasm of kidney excluding renal pelvis, unspecified laterality (HCC) * CBC W AUTO DIFFERENTIAL(Performed 01/02/2024) Performed for Malignant neoplasm of kidney excluding renal pelvis, unspecified laterality (HCC) * MAGNESIUM BLOOD(Performed 01/02/2024) Performed for Malignant neoplasm of kidney excluding renal pelvis, unspecified laterality (HCC) * URINALYSIS NO MICROSCOPIC NO CULTURE(Performed 12/11/2023) Performed for Malignant neoplasm of kidney excluding renal pelvis, unspecified laterality (HCC) * COMPREHENSIVE METABOLIC PANEL(Performed 12/11/2023) Performed for Malignant neoplasm of kidney excluding renal pelvis, unspecified laterality (HCC) * CBC W AUTO DIFFERENTIAL(Performed 12/11/2023) Performed for Malignant neoplasm of kidney excluding renal pelvis, unspecified laterality (HCC) * MAGNESIUM BLOOD(Performed 12/11/2023) Performed for Malignant neoplasm of kidney excluding renal pelvis, unspecified laterality (HCC) * MAGNESIUM BLOOD(Performed 12/05/2023) Performed for Metastatic renal cell carcinoma, unspecified laterality (HCC) * COMPREHENSIVE METABOLIC PANEL(Performed 12/05/2023) Performed for Metastatic renal cell carcinoma, unspecified laterality (HCC) * CBC W AUTO DIFFERENTIAL(Performed 12/05/2023) Performed for Metastatic renal cell carcinoma, unspecified laterality (HCC) * PROTEIN URINE TIMED QUANTITATIVE(Performed 11/28/2023) Performed for Proteinuria, unspecified type * CT CHEST ABDOMEN PELVIS W CONT(Performed 11/28/2023) Performed for Malignant neoplasm of right kidney, except renal pelvis (HCC) * CREATININE - POCT INTERFACED(Performed 11/28/2023) * URINALYSIS NO MICROSCOPIC NO CULTURE(Performed 09/19/2023) Performed for Malignant neoplasm of kidney excluding renal pelvis, unspecified laterality (HCC) * COMPREHENSIVE METABOLIC PANEL(Performed 09/19/2023) Performed for Malignant neoplasm of kidney excluding renal pelvis, unspecified laterality (HCC) * CBC W AUTO DIFFERENTIAL(Performed 09/19/2023) Performed for Malignant neoplasm of kidney excluding renal pelvis, unspecified laterality (HCC) * MAGNESIUM BLOOD(Performed 09/19/2023) Performed for Malignant neoplasm of kidney excluding renal pelvis, unspecified laterality (HCC) * PROTEIN URINE TIMED QUANTITATIVE(Performed 08/29/2023) Performed for Proteinuria, unspecified type * URINALYSIS NO MICROSCOPIC NO CULTURE(Performed 08/29/2023) Performed for Malignant neoplasm of kidney excluding renal pelvis, unspecified laterality (HCC) * COMPREHENSIVE METABOLIC PANEL(Performed 08/29/2023) Performed for Malignant neoplasm of kidney excluding renal pelvis, unspecified laterality (HCC) * CBC W AUTO DIFFERENTIAL(Performed 08/29/2023) Performed for Malignant neoplasm of kidney excluding renal pelvis, unspecified laterality (HCC) * MAGNESIUM BLOOD(Performed 08/29/2023) Performed for Malignant neoplasm of kidney excluding renal pelvis, unspecified laterality (HCC) * CT CHEST ABDOMEN PELVIS W CONT(Performed 08/29/2023) Performed for Malignant neoplasm of right kidney, except renal pelvis (HCC), Malignant neoplasm metastatic to both lungs (HCC) * COMPREHENSIVE METABOLIC PANEL(Performed 08/08/2023) Performed for Malignant neoplasm of kidney excluding renal pelvis, unspecified laterality (HCC) * CBC W AUTO DIFFERENTIAL(Performed 08/08/2023) Performed for Malignant neoplasm of kidney excluding renal pelvis, unspecified laterality (HCC) * MAGNESIUM BLOOD(Performed 08/08/2023) Performed for Malignant neoplasm of kidney excluding renal pelvis, unspecified laterality (HCC) * URINALYSIS NO MICROSCOPIC NO CULTURE(Performed 08/08/2023) Performed for Malignant neoplasm of kidney excluding renal pelvis, unspecified laterality (HCC) * URINALYSIS NO MICROSCOPIC NO CULTURE(Performed 07/18/2023) Performed for Malignant neoplasm of kidney excluding renal pelvis, unspecified laterality (HCC) * COMPREHENSIVE METABOLIC PANEL(Performed 07/18/2023) Performed for Malignant neoplasm of kidney excluding renal pelvis, unspecified laterality (HCC) * CBC W AUTO DIFFERENTIAL(Performed 07/18/2023) Performed for Malignant neoplasm of kidney excluding renal pelvis, unspecified laterality (HCC) * MAGNESIUM BLOOD(Performed 07/18/2023) Performed for Malignant neoplasm of kidney excluding renal pelvis, unspecified laterality (HCC) * URINALYSIS NO MICROSCOPIC NO CULTURE(Performed 06/27/2023) Performed for Malignant neoplasm of kidney excluding renal pelvis, unspecified laterality (HCC) * COMPREHENSIVE METABOLIC PANEL(Performed 06/27/2023) Performed for Malignant neoplasm of kidney excluding renal pelvis, unspecified laterality (HCC) * CBC W AUTO DIFFERENTIAL(Performed 06/27/2023) Performed for Malignant neoplasm of kidney excluding renal pelvis, unspecified laterality (HCC) * MAGNESIUM BLOOD(Performed 06/27/2023) Performed for Malignant neoplasm of kidney excluding renal pelvis, unspecified laterality (HCC) * COMPREHENSIVE METABOLIC PANEL(Performed 06/06/2023) Performed for Malignant neoplasm of kidney excluding renal pelvis, unspecified laterality (HCC) * CBC W AUTO DIFFERENTIAL(Performed 06/06/2023) Performed for Malignant neoplasm of kidney excluding renal pelvis, unspecified laterality (HCC) * MAGNESIUM BLOOD(Performed 06/06/2023) Performed for Malignant neoplasm of kidney excluding renal pelvis, unspecified laterality (HCC) * PROTEIN URINE TIMED QUANTITATIVE(Performed 06/06/2023) Performed for Proteinuria, unspecified type * URINALYSIS NO MICROSCOPIC NO CULTURE(Performed 06/06/2023) Performed for Malignant neoplasm of kidney excluding renal pelvis, unspecified laterality (HCC) * CT CHEST ABDOMEN PELVIS W CONT(Performed 05/22/2023) Performed for Malignant neoplasm of right kidney, except renal pelvis (HCC) * MAGNESIUM BLOOD(Performed 05/16/2023) * COMPREHENSIVE METABOLIC PANEL(Performed 05/16/2023) * URINALYSIS NO MICROSCOPIC NO CULTURE(Performed 05/16/2023) Performed for Malignant neoplasm of kidney excluding renal pelvis, unspecified laterality (HCC) * COMPREHENSIVE METABOLIC PANEL(Performed 05/16/2023) Performed for Malignant neoplasm of kidney excluding renal pelvis, unspecified laterality (HCC) * CBC W AUTO DIFFERENTIAL(Performed 05/16/2023) Performed for Malignant neoplasm of kidney excluding renal pelvis, unspecified laterality (HCC) * MAGNESIUM BLOOD(Performed 05/16/2023) Performed for Malignant neoplasm of kidney excluding renal pelvis, unspecified laterality (HCC) * COMPREHENSIVE METABOLIC PANEL(Performed 04/25/2023) Performed for Malignant neoplasm of kidney excluding renal pelvis, unspecified laterality (HCC) * CBC W AUTO DIFFERENTIAL(Performed 04/25/2023) Performed for Malignant neoplasm of kidney excluding renal pelvis, unspecified laterality (HCC) * MAGNESIUM BLOOD(Performed 04/25/2023) Performed for Malignant neoplasm of kidney excluding renal pelvis, unspecified laterality (HCC) * URINALYSIS NO MICROSCOPIC NO CULTURE(Performed 04/25/2023) Performed for Malignant neoplasm of kidney excluding renal pelvis, unspecified laterality (HCC) * URINALYSIS NO MICROSCOPIC NO CULTURE(Performed 04/05/2023) Performed for Malignant neoplasm of kidney excluding renal pelvis, unspecified laterality (HCC) * COMPREHENSIVE METABOLIC PANEL(Performed 04/05/2023) Performed for Malignant neoplasm of kidney excluding renal pelvis, unspecified laterality (HCC) * CBC W AUTO DIFFERENTIAL(Performed 04/05/2023) Performed for Malignant neoplasm of kidney excluding renal pelvis, unspecified laterality (HCC) * MAGNESIUM BLOOD(Performed 04/05/2023) Performed for Malignant neoplasm of kidney excluding renal pelvis, unspecified laterality (HCC) * COMPREHENSIVE METABOLIC PANEL(Performed 03/14/2023) Performed for Malignant neoplasm of kidney excluding renal pelvis, unspecified laterality (HCC) * CBC W AUTO DIFFERENTIAL(Performed 03/14/2023) Performed for Malignant neoplasm of kidney excluding renal pelvis, unspecified laterality (HCC) * MAGNESIUM BLOOD(Performed 03/14/2023) Performed for Malignant neoplasm of kidney excluding renal pelvis, unspecified laterality (HCC) * URINALYSIS NO MICROSCOPIC NO CULTURE(Performed 03/14/2023) Performed for Malignant neoplasm of kidney excluding renal pelvis, unspecified laterality (HCC) * MAGNESIUM BLOOD(Performed 03/07/2023) Performed for Malignant neoplasm of right kidney, except renal pelvis (HCC), Electrolyte imbalance * COMPREHENSIVE METABOLIC PANEL(Performed 03/07/2023) Performed for Malignant neoplasm of right kidney, except renal pelvis (HCC), Electrolyte imbalance * CBC W AUTO DIFFERENTIAL(Performed 03/07/2023) Performed for Malignant neoplasm of right kidney, except renal pelvis (HCC) * RAD ONC ARIA SESSION SUMMARY(Performed 02/22/2023) * RAD ONC ARIA SESSION SUMMARY(Performed 02/21/2023) * RAD ONC ARIA SESSION SUMMARY(Performed 02/19/2023) * RAD ONC ARIA SESSION SUMMARY(Performed 02/15/2023) * RAD ONC ARIA SESSION SUMMARY(Performed 02/14/2023) * PET CT SKULL TO MID THIGH(Performed 02/02/2023) Performed for 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), Malignant neoplasm of right kidney,except renal pelvis (HCC) * GLUCOSE SCREEN - POCT (IP) [facility](Performed 02/02/2023) * PROTEIN URINE TIMED QUANTITATIVE(Performed 01/23/2023) Performed for Proteinuria, unspecified type * CT CHEST ABDOMEN PELVIS W CONT(Performed 01/23/2023) Performed for Malignant neoplasm of right kidney, except renal pelvis (HCC) * CREATININE - POCT INTERFACED(Performed 01/23/2023) * COMPREHENSIVE METABOLIC PANEL(Performed 01/23/2023) Performed for Malignant neoplasm of right kidney, except renal pelvis (HCC) * CBC W AUTO DIFFERENTIAL(Performed 01/23/2023) Performed for Malignant neoplasm of right kidney, except renal pelvis (HCC) * URINALYSIS NO MICROSCOPIC NO CULTURE(Performed 12/20/2022) * LAB RESULTS ORDER(Performed 12/20/2022) * URINALYSIS NO MICROSCOPIC NO CULTURE(Performed 11/16/2022) * LAB RESULTS ORDER(Performed 11/16/2022) * PROTEIN URINE TIMED QUANTITATIVE(Performed 10/10/2022) Performed for Malignant neoplasm of right kidney, except renal pelvis (HCC) * URINALYSIS NO MICROSCOPIC NO CULTURE(Performed 10/10/2022) Performed for Malignant neoplasm of kidney excluding renal pelvis, unspecified laterality (HCC) * COMPREHENSIVE METABOLIC PANEL(Performed 10/10/2022) Performed for Malignant neoplasm of kidney excluding renal pelvis, unspecified laterality (HCC) * CBC W AUTO DIFFERENTIAL(Performed 10/10/2022) Performed for Malignant neoplasm of kidney excluding renal pelvis, unspecified laterality (HCC) * MAGNESIUM BLOOD(Performed 10/10/2022) Performed for Malignant neoplasm of kidney excluding renal pelvis, unspecified laterality (HCC) * CT CHEST ABDOMEN PELVIS W CONT(Performed 09/21/2022) Performed for Malignant neoplasm of right kidney, except renal pelvis (HCC) * URINALYSIS NO MICROSCOPIC NO CULTURE(Performed 09/19/2022) Performed for Malignant neoplasm of kidney excluding renal pelvis, unspecified laterality (HCC) * COMPREHENSIVE METABOLIC PANEL(Performed 09/19/2022) Performed for Malignant neoplasm of kidney excluding renal pelvis, unspecified laterality (HCC) * CBC W AUTO DIFFERENTIAL(Performed 09/19/2022) Performed for Malignant neoplasm of kidney excluding renal pelvis, unspecified laterality (HCC) * MAGNESIUM BLOOD(Performed 09/19/2022) Performed for Malignant neoplasm of kidney excluding renal pelvis, unspecified laterality (HCC) * URINALYSIS NO MICROSCOPIC NO CULTURE(Performed 08/29/2022) Performed for Malignant neoplasm of kidney excluding renal pelvis, unspecified laterality (HCC) * COMPREHENSIVE METABOLIC PANEL(Performed 08/29/2022) Performed for Malignant neoplasm of kidney excluding renal pelvis, unspecified laterality (HCC) * CBC W AUTO DIFFERENTIAL(Performed 08/29/2022) Performed for Malignant neoplasm of kidney excluding renal pelvis, unspecified laterality (HCC) * MAGNESIUM BLOOD(Performed 08/29/2022) Performed for Malignant neoplasm of kidney excluding renal pelvis, unspecified laterality (HCC) * URINALYSIS NO MICROSCOPIC NO CULTURE(Performed 08/08/2022) Performed for Malignant neoplasm of kidney excluding renal pelvis, unspecified laterality (HCC) * COMPREHENSIVE METABOLIC PANEL(Performed 08/08/2022) Performed for Malignant neoplasm of kidney excluding renal pelvis, unspecified laterality (HCC) * CBC W AUTO DIFFERENTIAL(Performed 08/08/2022) Performed for Malignant neoplasm of kidney excluding renal pelvis, unspecified laterality (HCC) * MAGNESIUM BLOOD(Performed 08/08/2022) Performed for Malignant neoplasm of kidney excluding renal pelvis, unspecified laterality (HCC) * COMPREHENSIVE METABOLIC PANEL(Performed 07/18/2022) Performed for Malignant neoplasm of kidney excluding renal pelvis, unspecified laterality (HCC) * MAGNESIUM BLOOD(Performed 07/18/2022) Performed for Malignant neoplasm of kidney excluding renal pelvis, unspecified laterality (HCC) * URINALYSIS NO MICROSCOPIC NO CULTURE(Performed 07/18/2022) Performed for Malignant neoplasm of kidney excluding renal pelvis, unspecified laterality (HCC) * CBC W AUTO DIFFERENTIAL(Performed 07/18/2022) Performed for Malignant neoplasm of kidney excluding renal pelvis, unspecified laterality (HCC) * UDP GLUCURONOSYLTRANSFERASE 1A1(Performed 06/27/2022) * COMPREHENSIVE METABOLIC PANEL(Performed 06/27/2022) Performed for Malignant neoplasm of kidney excluding renal pelvis, unspecified laterality (HCC) * CBC W AUTO DIFFERENTIAL(Performed 06/27/2022) Performed for Malignant neoplasm of kidney excluding renal pelvis, unspecified laterality (HCC) * MAGNESIUM BLOOD(Performed 06/27/2022) Performed for Malignant neoplasm of kidney excluding renal pelvis, unspecified laterality (HCC) * URINALYSIS NO MICROSCOPIC NO CULTURE(Performed 06/27/2022) Performed for Malignant neoplasm of kidney excluding renal pelvis, unspecified laterality (HCC) * CT CHEST ABDOMEN PELVIS W CONT(Performed 06/21/2022) Performed for Malignant neoplasm of right kidney, except renal pelvis (HCC), 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) * PROTEIN URINE TIMED QUANTITATIVE(Performed 05/31/2022) Performed for Proteinuria, unspecified type * URINALYSIS NO MICROSCOPIC NO CULTURE(Performed 05/31/2022) Performed for Malignant neoplasm of kidney excluding renal pelvis, unspecified laterality (HCC) * COMPREHENSIVE METABOLIC PANEL(Performed 05/31/2022) Performed for Malignant neoplasm of kidney excluding renal pelvis, unspecified laterality (HCC) * CBC W AUTO DIFFERENTIAL(Performed 05/31/2022) Performed for Malignant neoplasm of kidney excluding renal pelvis, unspecified laterality (HCC) * MAGNESIUM BLOOD(Performed 05/31/2022) Performed for Malignant neoplasm of kidney excluding renal pelvis, unspecified laterality (HCC) * URINALYSIS NO MICROSCOPIC NO CULTURE(Performed 05/10/2022) Performed for Malignant neoplasm of kidney excluding renal pelvis, unspecified laterality (HCC) * COMPREHENSIVE METABOLIC PANEL(Performed 05/10/2022) Performed for Malignant neoplasm of kidney excluding renal pelvis, unspecified laterality (HCC) * CBC W AUTO DIFFERENTIAL(Performed 05/10/2022) Performed for Malignant neoplasm of kidney excluding renal pelvis, unspecified laterality (HCC) * MAGNESIUM BLOOD(Performed 05/10/2022) Performed for Malignant neoplasm of kidney excluding renal pelvis, unspecified laterality (HCC) * COMPREHENSIVE METABOLIC PANEL(Performed 04/24/2022) Performed for Electrolyte imbalance, Low sodium levels * LAB RESULTS ORDER(Performed 04/24/2022) * COMPREHENSIVE METABOLIC PANEL(Performed 04/19/2022) Performed for Malignant neoplasm of kidney excluding renal pelvis, unspecified laterality (HCC) * MAGNESIUM BLOOD(Performed 04/19/2022) Performed for Malignant neoplasm of kidney excluding renal pelvis, unspecified laterality (HCC) * CBC W AUTO DIFFERENTIAL(Performed 04/19/2022) Performed for Malignant neoplasm of kidney excluding renal pelvis, unspecified laterality (HCC) * URINALYSIS NO MICROSCOPIC NO CULTURE(Performed 04/19/2022) Performed for Malignant neoplasm of kidney excluding renal pelvis, unspecified laterality (HCC) * BASIC METABOLIC PANEL (CALCIUM TOTAL)(Performed 04/05/2022) Performed for Hypertension, unspecified type * US ABDOMEN DOPPLER ONLY LTD(Performed 03/29/2022) Performed for Filling defect on imaging study * URINALYSIS NO MICROSCOPIC NO CULTURE(Performed 03/29/2022) Performed for Malignant neoplasm of kidney excluding renal pelvis, unspecified laterality (HCC) * COMPREHENSIVE METABOLIC PANEL(Performed 03/29/2022) Performed for Malignant neoplasm of kidney excluding renal pelvis, unspecified laterality (HCC) * CBC W AUTO DIFFERENTIAL(Performed 03/29/2022) Performed for Malignant neoplasm of kidney excluding renal pelvis, unspecified laterality (HCC) * MAGNESIUM BLOOD(Performed 03/29/2022) Performed for Malignant neoplasm of kidney excluding renal pelvis, unspecified laterality (HCC) * CT CHEST ABDOMEN PELVIS W CONT(Performed 03/21/2022) Performed for 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), Malignant neoplasm of right kidney,except renal pelvis (HCC) * URINALYSIS NO MICROSCOPIC NO CULTURE(Performed 03/01/2022) Performed for Malignant neoplasm of kidney excluding renal pelvis, unspecified laterality (HCC) * COMPREHENSIVE METABOLIC PANEL(Performed 03/01/2022) Performed for Malignant neoplasm of kidney excluding renal pelvis, unspecified laterality (HCC) * CBC W AUTO DIFFERENTIAL(Performed 03/01/2022) Performed for Malignant neoplasm of kidney excluding renal pelvis, unspecified laterality (HCC) * MAGNESIUM BLOOD(Performed 03/01/2022) Performed for Malignant neoplasm of kidney excluding renal pelvis, unspecified laterality (HCC) * URINALYSIS NO MICROSCOPIC NO CULTURE(Performed 02/01/2022) Performed for Malignant neoplasm of kidney excluding renal pelvis, unspecified laterality (HCC) * COMPREHENSIVE METABOLIC PANEL(Performed 02/01/2022) Performed for Malignant neoplasm of kidney excluding renal pelvis, unspecified laterality (HCC) * CBC W AUTO DIFFERENTIAL(Performed 02/01/2022) Performed for Malignant neoplasm of kidney excluding renal pelvis, unspecified laterality (HCC) * MAGNESIUM BLOOD(Performed 02/01/2022) Performed for Malignant neoplasm of kidney excluding renal pelvis, unspecified laterality (HCC) * MAGNESIUM BLOOD(Performed 01/11/2022) Performed for Malignant neoplasm of kidney excluding renal pelvis, unspecified laterality (HCC) * URINALYSIS NO MICROSCOPIC NO CULTURE(Performed 01/11/2022) Performed for Malignant neoplasm of kidney excluding renal pelvis, unspecified laterality (HCC) * COMPREHENSIVE METABOLIC PANEL(Performed 01/11/2022) Performed for Malignant neoplasm of kidney excluding renal pelvis, unspecified laterality (HCC) * CBC W AUTO DIFFERENTIAL(Performed 01/11/2022) Performed for Malignant neoplasm of kidney excluding renal pelvis, unspecified laterality (HCC) * MAGNESIUM BLOOD(Performed 12/21/2021) Performed for Malignant neoplasm of kidney excluding renal pelvis, unspecified laterality (HCC) * CBC W AUTO DIFFERENTIAL(Performed 12/21/2021) Performed for Malignant neoplasm of kidney excluding renal pelvis, unspecified laterality (HCC) * COMPREHENSIVE METABOLIC PANEL(Performed 12/21/2021) Performed for Malignant neoplasm of kidney excluding renal pelvis, unspecified laterality (HCC) * URINALYSIS NO MICROSCOPIC NO CULTURE(Performed 12/21/2021) Performed for Malignant neoplasm of kidney excluding renal pelvis, unspecified laterality (HCC) * PROTEIN URINE TIMED QUANTITATIVE(Performed 12/21/2021) Performed for Metastatic renal cell carcinoma, unspecified laterality (HCC), Proteinuria, unspecified type * CT CHEST ABDOMEN PELVIS W CONT(Performed 12/19/2021) Performed for Malignant neoplasm of right kidney, except renal pelvis (HCC), 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) * URINALYSIS NO MICROSCOPIC NO CULTURE(Performed 11/30/2021) Performed for Malignant neoplasm of kidney excluding renal pelvis, unspecified laterality (HCC) * COMPREHENSIVE METABOLIC PANEL(Performed 11/30/2021) Performed for Malignant neoplasm of kidney excluding renal pelvis, unspecified laterality (HCC) * CBC W AUTO DIFFERENTIAL(Performed 11/30/2021) Performed for Malignant neoplasm of kidney excluding renal pelvis, unspecified laterality (HCC) * MAGNESIUM BLOOD(Performed 11/30/2021) Performed for Malignant neoplasm of kidney excluding renal pelvis, unspecified laterality (HCC) * URINALYSIS NO MICROSCOPIC NO CULTURE(Performed 11/09/2021) Performed for Malignant neoplasm of kidney excluding renal pelvis, unspecified laterality (HCC) * COMPREHENSIVE METABOLIC PANEL(Performed 11/09/2021) Performed for Malignant neoplasm of kidney excluding renal pelvis, unspecified laterality (HCC) * CBC W AUTO DIFFERENTIAL(Performed 11/09/2021) Performed for Malignant neoplasm of kidney excluding renal pelvis, unspecified laterality (HCC) * URINALYSIS NO MICROSCOPIC NO CULTURE(Performed 10/19/2021) Performed for Malignant neoplasm of kidney excluding renal pelvis, unspecified laterality (HCC) * COMPREHENSIVE METABOLIC PANEL(Performed 10/19/2021) Performed for Malignant neoplasm of kidney excluding renal pelvis, unspecified laterality (HCC) * CBC W AUTO DIFFERENTIAL(Performed 10/19/2021) Performed for Malignant neoplasm of kidney excluding renal pelvis, unspecified laterality (HCC) * URINALYSIS NO MICROSCOPIC NO CULTURE(Performed 09/28/2021) Performed for Malignant neoplasm of kidney excluding renal pelvis, unspecified laterality (HCC) * COMPREHENSIVE METABOLIC PANEL(Performed 09/28/2021) Performed for Malignant neoplasm of kidney excluding renal pelvis, unspecified laterality (HCC) * CBC W AUTO DIFFERENTIAL(Performed 09/28/2021) Performed for Malignant neoplasm of kidney excluding renal pelvis, unspecified laterality (HCC) * PTH INTACT W/O CALCIUM(Performed 09/07/2021) * SMOOTH MUSCLE ANTIBODY W REFLEX TITER(Performed 09/07/2021) * VITAMIN D 1,25 DIHYDROXY(Performed 09/07/2021) Performed for Hypercalcemia * PTH RELATED PEPTIDE(Performed 09/07/2021) Performed for Hypercalcemia * HEMOGLOBIN A1C(Performed 09/07/2021) Performed for Polyuria * URINALYSIS NO MICROSCOPIC NO CULTURE(Performed 09/07/2021) Performed for Malignant neoplasm of kidney excluding renal pelvis, unspecified laterality (HCC) * COMPREHENSIVE METABOLIC PANEL(Performed 09/07/2021) Performed for Malignant neoplasm of kidney excluding renal pelvis, unspecified laterality (HCC) * CBC W AUTO DIFFERENTIAL(Performed 09/07/2021) Performed for Malignant neoplasm of kidney excluding renal pelvis, unspecified laterality (HCC) * CT CHEST ABDOMEN PELVIS W CONT(Performed 09/07/2021) Performed for Malignant neoplasm of right kidney, except renal pelvis (HCC) * COMPREHENSIVE METABOLIC PANEL(Performed 08/17/2021) Performed for Malignant neoplasm of kidney excluding renal pelvis, unspecified laterality (HCC) * CBC W AUTO DIFFERENTIAL(Performed 08/17/2021) Performed for Malignant neoplasm of kidney excluding renal pelvis, unspecified laterality (HCC) * URINALYSIS NO MICROSCOPIC NO CULTURE(Performed 08/17/2021) Performed for Malignant neoplasm of kidney excluding renal pelvis, unspecified laterality (HCC) * RAD ONC ARIA SESSION SUMMARY(Performed 07/21/2021) * RAD ONC ARIA SESSION SUMMARY(Performed 07/19/2021) * RAD ONC ARIA SESSION SUMMARY(Performed 07/15/2021) * RAD ONC ARIA SESSION SUMMARY(Performed 07/14/2021) * RAD ONC ARIA SESSION SUMMARY(Performed 07/12/2021) * COMPREHENSIVE METABOLIC PANEL(Performed 06/22/2021) Performed for Metastatic renal cell carcinoma, unspecified laterality (HCC) * CBC W AUTO DIFFERENTIAL(Performed 06/22/2021) Performed for Metastatic renal cell carcinoma, unspecified laterality (HCC) * URINALYSIS NO MICROSCOPIC NO CULTURE(Performed 06/01/2021) Performed for Malignant neoplasm of kidney excluding renal pelvis, unspecified laterality (HCC) * COMPREHENSIVE METABOLIC PANEL(Performed 06/01/2021) Performed for Malignant neoplasm of kidney excluding renal pelvis, unspecified laterality (HCC) * CBC W AUTO DIFFERENTIAL(Performed 06/01/2021) Performed for Malignant neoplasm of kidney excluding renal pelvis, unspecified laterality (HCC) * CT CHEST ABDOMEN PELVIS W CONT(Performed 05/26/2021) Performed for Metastatic renal cell carcinoma, unspecified laterality (HCC) * URINALYSIS NO MICROSCOPIC NO CULTURE(Performed 05/11/2021) Performed for Malignant neoplasm of kidney excluding renal pelvis, unspecified laterality (HCC) * COMPREHENSIVE METABOLIC PANEL(Performed 05/11/2021) Performed for Malignant neoplasm of kidney excluding renal pelvis, unspecified laterality (HCC) * CBC W AUTO DIFFERENTIAL(Performed 05/11/2021) Performed for Malignant neoplasm of kidney excluding renal pelvis, unspecified laterality (HCC) * COMPREHENSIVE METABOLIC PANEL(Performed 04/20/2021) Performed for Malignant neoplasm of kidney excluding renal pelvis, unspecified laterality (HCC) * CBC W AUTO DIFFERENTIAL(Performed 04/20/2021) Performed for Malignant neoplasm of kidney excluding renal pelvis, unspecified laterality (HCC) * URINALYSIS NO MICROSCOPIC NO CULTURE(Performed 04/20/2021) Performed for Malignant neoplasm of kidney excluding renal pelvis, unspecified laterality (HCC) * COMPREHENSIVE METABOLIC PANEL(Performed 03/30/2021) Performed for Malignant neoplasm of kidney excluding renal pelvis, unspecified laterality (HCC) * CBC W AUTO DIFFERENTIAL(Performed 03/30/2021) Performed for Malignant neoplasm of kidney excluding renal pelvis, unspecified laterality (HCC) * URINALYSIS NO MICROSCOPIC NO CULTURE(Performed 03/30/2021) Performed for Malignant neoplasm of kidney excluding renal pelvis, unspecified laterality (HCC) * CT ABDOMEN MULTI PHASE W CONT(Performed 03/28/2021) Performed for Elevated liver enzymes * SMOOTH MUSCLE ANTIBODY W REFLEX TITER(Performed 03/17/2021) Performed for Elevated liver enzymes * HEPATITIS C RNA QUANTITATIVE(Performed 03/17/2021) Performed for Elevated liver enzymes * HEPATITIS B SURFACE ANTIGEN W RFLX CONFIRMATION(Performed 03/17/2021) Performed for Elevated liver enzymes * CERULOPLASMIN(Performed 03/17/2021) Performed for Elevated liver enzymes * [id number] BLOOD PHENOTYPING PANEL(Performed 03/17/2021) Performed for Elevated liver enzymes * [id number] BLOOD(Performed 03/17/2021) Performed for Elevated liver enzymes * MITOCHONDRIAL ANTIBODY SCREEN(Performed 03/17/2021) Performed for Elevated liver enzymes * CHERYL BLOOD SCREEN W/REFLEX TITER(Performed 03/17/2021) Performed for Elevated liver enzymes * PT-INR [facility](Performed 03/17/2021) Performed for Elevated liver enzymes * COMPREHENSIVE METABOLIC PANEL(Performed 03/17/2021) Performed for Elevated liver enzymes * CBC W AUTO DIFFERENTIAL(Performed 03/17/2021) Performed for Elevated liver enzymes * COMPREHENSIVE METABOLIC PANEL(Performed 03/09/2021) Performed for Malignant neoplasm of kidney excluding renal pelvis, unspecified laterality (HCC) * URINALYSIS NO MICROSCOPIC NO CULTURE(Performed 03/09/2021) Performed for Malignant neoplasm of kidney excluding renal pelvis, unspecified laterality (HCC) * CBC W AUTO DIFFERENTIAL(Performed 03/09/2021) Performed for Malignant neoplasm of kidney excluding renal pelvis, unspecified laterality (HCC) * T4 FREE(Performed 03/02/2021) Performed for Metastatic renal cell carcinoma, unspecified laterality (HCC) * CBC W AUTO DIFFERENTIAL(Performed 03/02/2021) Performed for Metastatic renal cell carcinoma, unspecified laterality (HCC) * TSH(Performed 03/02/2021) Performed for Metastatic renal cell carcinoma, unspecified laterality (HCC) * HEPATIC FUNCTION PANEL(Performed 03/02/2021) Performed for Metastatic renal cell carcinoma, unspecified laterality (HCC) * BASIC METABOLIC PANEL (CALCIUM TOTAL)(Performed 03/02/2021) Performed for Metastatic renal cell carcinoma, unspecified laterality (HCC) * CT CHEST ABDOMEN PELVIS W CONT(Performed 02/22/2021) Performed for Metastatic renal cell carcinoma, unspecified laterality (HCC) * HEPATIC FUNCTION PANEL(Performed 02/16/2021) * LAB RESULTS ORDER(Performed 02/16/2021) * COMPREHENSIVE METABOLIC PANEL(Performed 02/02/2021) Performed for Malignant neoplasm of kidney excluding renal pelvis, unspecified laterality (HCC) * TSH(Performed 02/02/2021) Performed for Malignant neoplasm of kidney excluding renal pelvis, unspecified laterality (HCC) * CBC W AUTO DIFFERENTIAL(Performed 02/02/2021) Performed for Malignant neoplasm of kidney excluding renal pelvis, unspecified laterality (HCC) * LAB RESULTS ORDER(Performed 01/18/2021) * HEPATIC FUNCTION PANEL(Performed 01/17/2021) * LAB RESULTS ORDER(Performed 01/11/2021) * HEPATIC FUNCTION PANEL(Performed 01/10/2021) * LAB RESULTS ORDER(Performed 01/04/2021) * HEPATIC FUNCTION PANEL(Performed 01/03/2021) * COMPREHENSIVE METABOLIC PANEL(Performed 12/29/2020) Performed for Malignant neoplasm of kidney excluding renal pelvis, unspecified laterality (HCC) * TSH(Performed 12/29/2020) Performed for Malignant neoplasm of kidney excluding renal pelvis, unspecified laterality (HCC) * CBC W AUTO DIFFERENTIAL(Performed 12/29/2020) Performed for Malignant neoplasm of kidney excluding renal pelvis, unspecified laterality (HCC) * LAB RESULTS ORDER(Performed 12/24/2020) * HEPATIC FUNCTION PANEL(Performed 12/23/2020) * LAB RESULTS ORDER(Performed 12/21/2020) * HEPATIC FUNCTION PANEL(Performed 12/20/2020) * LAB RESULTS ORDER(Performed 12/17/2020) * HEPATIC FUNCTION PANEL(Performed 12/16/2020) * LAB RESULTS ORDER(Performed 12/14/2020) * HEPATIC FUNCTION PANEL(Performed 12/13/2020) * LAB RESULTS ORDER(Performed 12/10/2020) * HEPATIC FUNCTION PANEL(Performed 12/09/2020) * LAB RESULTS ORDER(Performed 12/07/2020) * HEPATIC FUNCTION PANEL(Performed 12/06/2020) * LAB RESULTS ORDER(Performed 12/03/2020) * HEPATIC FUNCTION PANEL(Performed 12/03/2020) * COMPREHENSIVE METABOLIC PANEL(Performed 12/01/2020) Performed for Malignant neoplasm of kidney excluding renal pelvis, unspecified laterality (HCC) * TSH(Performed 12/01/2020) Performed for Malignant neoplasm of kidney excluding renal pelvis, unspecified laterality (HCC) * CBC W AUTO DIFFERENTIAL(Performed 12/01/2020) Performed for Malignant neoplasm of kidney excluding renal pelvis, unspecified laterality (HCC) * HEPATIC FUNCTION PANEL(Performed 11/15/2020) Performed for Renal cell carcinoma, unspecified laterality (HCC), Hepatitis * BASIC METABOLIC PANEL (CALCIUM TOTAL)(Performed 11/15/2020) Performed for Renal cell carcinoma, unspecified laterality (HCC) * CBC W AUTO DIFFERENTIAL(Performed 11/15/2020) Performed for Renal cell carcinoma, unspecified laterality (HCC) * BILIRUBIN TOTAL BLOOD(Performed 11/10/2020) * T4 FREE(Performed 11/10/2020) Performed for Malignant neoplasm of kidney excluding renal pelvis, unspecified laterality (HCC) * COMPREHENSIVE METABOLIC PANEL(Performed 11/10/2020) Performed for Malignant neoplasm of kidney excluding renal pelvis, unspecified laterality (HCC) * TSH(Performed 11/10/2020) Performed for Malignant neoplasm of kidney excluding renal pelvis, unspecified laterality (HCC) * CBC W AUTO DIFFERENTIAL(Performed 11/10/2020) Performed for Malignant neoplasm of kidney excluding renal pelvis, unspecified laterality (HCC) * LAB RESULTS ORDER(Performed 10/25/2020) * CORTISOL BLOOD AM(Performed 10/21/2020) Performed for Adrenal cortical steroids causing adverse effect in therapeutic use * COMPREHENSIVE METABOLIC PANEL(Performed 10/20/2020) Performed for Malignant neoplasm of kidney excluding renal pelvis, unspecified laterality (HCC) * TSH(Performed 10/20/2020) Performed for Malignant neoplasm of kidney excluding renal pelvis, unspecified laterality (HCC) * CBC W AUTO DIFFERENTIAL(Performed 10/20/2020) Performed for Malignant neoplasm of kidney excluding renal pelvis, unspecified laterality (HCC) * LAB RESULTS ORDER(Performed 10/19/2020) * HEPATIC FUNCTION PANEL(Performed 10/18/2020) * BASIC METABOLIC PANEL (CALCIUM TOTAL)(Performed 10/18/2020) Performed for Hyperkalemia * T4+TSH(Performed 10/18/2020) Performed for Thyroid nodule * LAB RESULTS ORDER(Performed 10/12/2020) * HEPATIC FUNCTION PANEL(Performed 10/11/2020) * LAB RESULTS ORDER(Performed 10/05/2020) * HEPATIC FUNCTION PANEL(Performed 10/04/2020) * LAB RESULTS ORDER(Performed 09/30/2020) * LAB RESULTS ORDER(Performed 09/28/2020) * HEPATIC FUNCTION PANEL(Performed 09/27/2020) * PET CT SKULL TO MID THIGH(Performed 09/21/2020) Performed for Metastatic renal cell carcinoma, unspecified laterality (HCC) * BASIC METABOLIC PANEL (CALCIUM TOTAL)(Performed 09/21/2020) Performed for Metastatic renal cell carcinoma, unspecified laterality (HCC) * CBC W AUTO DIFFERENTIAL(Performed 09/21/2020) Performed for Metastatic renal cell carcinoma, unspecified laterality (HCC) * HEPATIC FUNCTION PANEL(Performed 09/21/2020) Performed for Hepatitis, Metastatic renal cell carcinoma, unspecified laterality (HCC) * GLUCOSE SCREEN - POCT (IP) [facility](Performed 09/21/2020) * LAB RESULTS ORDER(Performed 09/14/2020) * HEPATIC FUNCTION PANEL(Performed 09/13/2020) * LAB RESULTS ORDER(Performed 09/07/2020) * HEPATIC FUNCTION PANEL(Performed 09/06/2020) * LAB RESULTS ORDER(Performed 09/03/2020) * LAB RESULTS ORDER(Performed 09/03/2020) * HEPATIC FUNCTION PANEL(Performed 09/02/2020) * LAB RESULTS ORDER(Performed 09/01/2020) * LAB RESULTS ORDER(Performed 08/31/2020) * HEPATIC FUNCTION PANEL(Performed 08/30/2020) * LAB RESULTS ORDER(Performed 08/27/2020) * HEPATIC FUNCTION PANEL(Performed 08/26/2020) * LAB RESULTS ORDER(Performed 08/24/2020) * HEPATIC FUNCTION PANEL(Performed 08/23/2020) * LAB RESULTS ORDER(Performed 08/20/2020) * LAB RESULTS ORDER(Performed 08/20/2020) * HEPATIC FUNCTION PANEL(Performed 08/19/2020) * LAB RESULTS ORDER(Performed 08/18/2020) * T4 FREE(Performed 08/16/2020) Performed for Hyperthyroidism * TSH(Performed 08/16/2020) Performed for Hyperthyroidism * HEPATIC FUNCTION PANEL(Performed 08/16/2020) Performed for Metastatic renal cell carcinoma, unspecified laterality (HCC), Hepatitis * T4 FREE(Performed 08/11/2020) Performed for Malignant neoplasm of kidney excluding renal pelvis, unspecified laterality (HCC) * TSH(Performed 08/11/2020) Performed for Malignant neoplasm of kidney excluding renal pelvis, unspecified laterality (HCC) * COMPREHENSIVE METABOLIC PANEL(Performed 08/11/2020) Performed for Malignant neoplasm of kidney excluding renal pelvis, unspecified laterality (HCC) * CBC W AUTO DIFFERENTIAL(Performed 08/11/2020) Performed for Malignant neoplasm of kidney excluding renal pelvis, unspecified laterality (HCC) * URINALYSIS REFLEX TO MICROSCOPIC NO CULTURE(Performed 07/21/2020) * TSH(Performed 07/21/2020) Performed for Malignant neoplasm of kidney excluding renal pelvis, unspecified laterality (HCC) * COMPREHENSIVE METABOLIC PANEL(Performed 07/21/2020) Performed for Malignant neoplasm of kidney excluding renal pelvis, unspecified laterality (HCC) * CBC W AUTO DIFFERENTIAL(Performed 07/21/2020) Performed for Malignant neoplasm of kidney excluding renal pelvis, unspecified laterality (HCC) * TSH(Performed 06/30/2020) Performed for Malignant neoplasm of kidney excluding renal pelvis, unspecified laterality (HCC) * COMPREHENSIVE METABOLIC PANEL(Performed 06/30/2020) Performed for Malignant neoplasm of kidney excluding renal pelvis, unspecified laterality (HCC) * CBC W AUTO DIFFERENTIAL(Performed 06/30/2020) Performed for Malignant neoplasm of kidney excluding renal pelvis, unspecified laterality (HCC) * TSH(Performed 06/09/2020) Performed for Malignant neoplasm of kidney excluding renal pelvis, unspecified laterality (HCC) * COMPREHENSIVE METABOLIC PANEL(Performed 06/09/2020) Performed for Malignant neoplasm of kidney excluding renal pelvis, unspecified laterality (HCC) * CBC W AUTO DIFFERENTIAL(Performed 06/09/2020) Performed for Malignant neoplasm of kidney excluding renal pelvis, unspecified laterality (HCC) * CT GUIDED NEEDLE PLACEMENT(Performed 05/27/2020) Performed for Metastatic renal cell carcinoma, unspecified laterality (HCC) * PATHOLOGY TISSUE(Performed 05/27/2020) Performed for Metastatic renal cell carcinoma, unspecified laterality (HCC) * MRI BRAIN WWO CONTRAST(Performed 05/22/2020) Performed for Metastatic renal cell carcinoma, unspecified laterality (HCC) * XR RIBS LEFT 2VW(Performed 05/12/2020) Performed for Metastatic renal cell carcinoma, unspecified laterality (HCC) * COMPREHENSIVE METABOLIC PANEL(Performed 05/12/2020) Performed for Metastatic renal cell carcinoma, unspecified laterality (HCC) * CBC W AUTO DIFFERENTIAL(Performed 05/12/2020) Performed for Metastatic renal cell carcinoma, unspecified laterality (HCC) * PET CT WHOLE BODY(Performed 05/10/2020) Performed for 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) * GLUCOSE SCREEN - POCT (IP) [facility](Performed 05/10/2020) * CBC W AUTO DIFFERENTIAL(Performed 04/26/2020) Performed for Metastatic renal cell carcinoma, unspecified laterality (HCC) * COMPREHENSIVE METABOLIC PANEL(Performed 04/26/2020) Performed for Metastatic renal cell carcinoma, unspecified laterality (HCC) * IMAGING/RADIOLOGY/XRAY RESULTS ORDER(Performed 04/26/2020) * CARDIAC RHYTHM STRIP ORDER(Performed 01/05/2020) * APHERESIS/TRANSFUSION ORDER(Performed 01/05/2020) * XR CHEST 1VW PORTABLE(Performed 01/02/2020) Performed for 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) * BASIC METABOLIC PANEL (CALCIUM TOTAL)(Performed 01/02/2020) * CBC W AUTO DIFFERENTIAL(Performed 01/02/2020) * CULTURE VRE(Performed 01/01/2020) * CULTURE MRSA(Performed 01/01/2020) * CULTURE MRSA(Performed 01/01/2020) * XR CHEST 1VW PORTABLE(Performed 01/01/2020) Performed for 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) * SLIDE PREP HISTOLOGY(Performed 01/01/2020) * PATHOLOGY TISSUE EXAM (STL)(Performed 01/01/2020) Performed for Diagnosis unknown * PERIPHERAL IV NOTE(Performed 01/01/2020) * ENDOTRACHEAL TUBE NOTE(Performed 01/01/2020) * TYPE + SCREEN PANEL(Performed 01/01/2020) * MI THORACOSCOPY W/LOBECTOMY(Performed 01/01/2020) Performed for Diagnosis unknown * EKG 12-LEAD(Performed 12/25/2019) Performed for 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) * XR CHEST 2VW(Performed 12/25/2019) Performed for 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) * TYPE + SCREEN PANEL(Performed 12/25/2019) Performed for Pre-op testing * URINE MICROSCOPIC ONLY(Performed 12/25/2019) Performed for Pre-op testing, Malignant neoplasm of hilus of lung, unspecified laterality (HCC) * URINALYSIS REFLEX TO MICROSCOPIC NO CULTURE(Performed 12/25/2019) Performed for Pre-op testing, Malignant neoplasm of hilus of lung, unspecified laterality (HCC) * PT PTT PANEL(Performed 12/25/2019) Performed for Pre-op testing, Malignant neoplasm of hilus of lung, unspecified laterality (HCC) * COMPREHENSIVE METABOLIC PANEL(Performed 12/25/2019) Performed for Pre-op testing, Malignant neoplasm of hilus of lung, unspecified laterality (HCC) * CBC W AUTO DIFFERENTIAL(Performed 12/25/2019) Performed for Pre-op testing, Malignant neoplasm of hilus of lung, unspecified laterality (HCC) * CT CHEST W CONTRAST(Performed 12/02/2019) Performed for 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) * CREATININE BLOOD - POINT OF CARE (IP)(Performed 12/02/2019) Performed for 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) * CARDIAC RHYTHM STRIP ORDER(Performed 09/23/2019) * TSH(Performed 09/22/2019) Performed for Primary malignant neoplasm (HCC) * T4 FREE(Performed 09/22/2019) Performed for Primary malignant neoplasm (HCC) * COMPREHENSIVE METABOLIC PANEL(Performed 09/22/2019) Performed for Primary malignant neoplasm (HCC) * LDH BLOOD(Performed 09/22/2019) Performed for Primary malignant neoplasm (HCC) * CBC W AUTO DIFFERENTIAL(Performed 09/22/2019) Performed for Primary malignant neoplasm (HCC) * XR CHEST 2VW INSPIR EXPIRATION(Performed 09/18/2019) Performed for Lung nodule, Nodule of upper lobe of left lung * XR CHEST 2VW INSPIR EXPIRATION(Performed 09/18/2019) Performed for Lung nodule, Nodule of upper lobe of left lung * PATHOLOGY TISSUE EXAM (STL)(Performed 09/18/2019) Performed for Lung nodule * CT GUIDED NEEDLE PLACEMENT(Performed 09/18/2019) Performed for Nodule of upper lobe of left lung * PT-INR(Performed 09/18/2019) Performed for Lung nodule * LDH BLOOD(Performed 08/25/2019) Performed for Renal cell carcinoma, unspecified laterality (HCC) * TSH(Performed 08/25/2019) Performed for Renal cell carcinoma, unspecified laterality (HCC) * T4 FREE(Performed 08/25/2019) Performed for Renal cell carcinoma, unspecified laterality (HCC) * COMPREHENSIVE METABOLIC PANEL(Performed 08/25/2019) Performed for Renal cell carcinoma, unspecified laterality (HCC) * CBC W AUTO DIFFERENTIAL(Performed 08/25/2019) Performed for Renal cell carcinoma, unspecified laterality (HCC) * T4 FREE(Performed 02/24/2019) Performed for Renal cell carcinoma, unspecified laterality (HCC) * TSH(Performed 02/24/2019) Performed for Renal cell carcinoma, unspecified laterality (HCC) * LDH BLOOD(Performed 02/24/2019) Performed for Renal cell carcinoma, unspecified laterality (HCC) * COMPREHENSIVE METABOLIC PANEL(Performed 02/24/2019) Performed for Renal cell carcinoma, unspecified laterality (HCC) * CBC W AUTO DIFFERENTIAL(Performed 02/24/2019) Performed for Renal cell carcinoma, unspecified laterality (HCC) * IMAGING/RADIOLOGY/XRAY RESULTS ORDER(Performed 02/13/2019) * IMAGING/RADIOLOGY/XRAY RESULTS ORDER(Performed 02/13/2019) * COMPREHENSIVE METABOLIC PANEL(Performed 02/18/2018) Performed for Renal cell carcinoma, unspecified laterality (HCC) * T4 FREE(Performed 02/18/2018) Performed for Renal cell carcinoma, unspecified laterality (HCC) * LDH BLOOD(Performed 02/18/2018) Performed for Renal cell carcinoma, unspecified laterality (HCC) * CBC W AUTO DIFFERENTIAL(Performed 02/18/2018) Performed for Renal cell carcinoma, unspecified laterality (HCC) * T4 FREE(Performed 02/21/2017) * TSH(Performed 02/21/2017) * COMPREHENSIVE METABOLIC PANEL(Performed 02/21/2017) * LDH BLOOD(Performed 02/21/2017) * CBC W AUTO DIFFERENTIAL(Performed 02/21/2017) * CBC W AUTO DIFFERENTIAL(Performed 02/21/2017) * TSH(Performed 02/23/2016) * T4 FREE(Performed 02/23/2016) * COMPREHENSIVE METABOLIC PANEL(Performed 02/23/2016) * LDH BLOOD(Performed 02/23/2016) * CBC W AUTO DIFFERENTIAL(Performed 02/23/2016) * CBC W AUTO DIFFERENTIAL(Performed 02/23/2016) * T4 FREE(Performed 08/25/2015) * TSH(Performed 08/25/2015) * LDH BLOOD(Performed 08/25/2015) * COMPREHENSIVE METABOLIC PANEL(Performed 08/25/2015) * CBC W AUTO DIFFERENTIAL(Performed 08/25/2015) * CBC W AUTO DIFFERENTIAL(Performed 08/25/2015) * IR CENTRAL LINE REMOVAL(Performed 03/05/2015) * IR PICC LINE INSERT(Performed 03/05/2015) * COMPREHENSIVE METABOLIC PANEL(Performed 02/24/2015) * LDH BLOOD(Performed 02/24/2015) * CBC W AUTO DIFFERENTIAL(Performed 02/24/2015) * CBC W AUTO DIFFERENTIAL(Performed 02/24/2015) * COMPREHENSIVE METABOLIC PANEL(Performed 01/05/2015) * CBC W AUTO DIFFERENTIAL(Performed 01/04/2015) * CBC W AUTO DIFFERENTIAL(Performed 01/04/2015) * COMPREHENSIVE METABOLIC PANEL(Performed 01/03/2015) * CBC W AUTO DIFFERENTIAL(Performed 01/03/2015) * CBC W AUTO DIFFERENTIAL(Performed 01/03/2015) * CULTURE BLOOD(Performed 01/03/2015) * CULTURE BLOOD(Performed 01/03/2015) * PHOSPHORUS BLOOD(Performed 01/03/2015) * MAGNESIUM BLOOD(Performed 01/03/2015) * COMPREHENSIVE METABOLIC PANEL(Performed 01/03/2015) * PTT [facility](Performed 01/03/2015) * PT-INR [facility](Performed 01/03/2015) * CBC W AUTO DIFFERENTIAL(Performed 01/03/2015) * CBC W AUTO DIFFERENTIAL(Performed 01/03/2015) * COMPREHENSIVE METABOLIC PANEL(Performed 12/06/2014) * BILIRUBIN DIRECT(Performed 12/06/2014) * CBC W AUTO DIFFERENTIAL(Performed 12/06/2014) * CBC W AUTO DIFFERENTIAL(Performed 12/06/2014) * CULTURE URINE(Performed 12/06/2014) * CULTURE BLOOD(Performed 12/05/2014) * CULTURE BLOOD(Performed 12/05/2014) * COMPREHENSIVE METABOLIC PANEL(Performed 12/05/2014) * CBC W AUTO DIFFERENTIAL(Performed 12/05/2014) * CBC W AUTO DIFFERENTIAL(Performed 12/05/2014) * COMPREHENSIVE METABOLIC PANEL(Performed 12/04/2014) * CBC W AUTO DIFFERENTIAL(Performed 12/04/2014) * CBC W AUTO DIFFERENTIAL(Performed 12/04/2014) * PTT [facility](Performed 12/04/2014) * PT-INR [facility](Performed 12/04/2014) * COMPREHENSIVE METABOLIC PANEL(Performed 11/01/2014) * CBC W AUTO DIFFERENTIAL(Performed 11/01/2014) * CBC W AUTO DIFFERENTIAL(Performed 11/01/2014) * COMPREHENSIVE METABOLIC PANEL(Performed 10/31/2014) * CBC W AUTO DIFFERENTIAL(Performed 10/31/2014) * CBC W AUTO DIFFERENTIAL(Performed 10/31/2014) * PT-INR [facility](Performed 10/30/2014) * COMPREHENSIVE METABOLIC PANEL(Performed 10/30/2014) * PTT [facility](Performed 10/30/2014) * CBC W AUTO DIFFERENTIAL(Performed 10/30/2014) * CBC W AUTO DIFFERENTIAL(Performed 10/30/2014) * CULTURE BLOOD(Performed 10/30/2014) * CBC W AUTO DIFFERENTIAL(Performed 09/27/2014) * CBC W AUTO DIFFERENTIAL(Performed 09/27/2014) * PHOSPHORUS BLOOD(Performed 09/27/2014) * MAGNESIUM BLOOD(Performed 09/27/2014) * LDH BLOOD(Performed 09/27/2014) * COMPREHENSIVE METABOLIC PANEL(Performed 09/27/2014) * PTT [facility](Performed 09/27/2014) * PT-INR [facility](Performed 09/27/2014) * MAGNESIUM BLOOD(Performed 09/26/2014) * PHOSPHORUS BLOOD(Performed 09/26/2014) * MAGNESIUM BLOOD(Performed 09/26/2014) * COMPREHENSIVE METABOLIC PANEL(Performed 09/26/2014) * LDH BLOOD(Performed 09/26/2014) * CBC W AUTO DIFFERENTIAL(Performed 09/26/2014) * CBC W AUTO DIFFERENTIAL(Performed 09/26/2014) * PTT [facility](Performed 09/26/2014) * PT-INR [facility](Performed 09/26/2014) * URINALYSIS REFLEX TO MICROSCOPIC NO CULTURE(Performed 09/25/2014) * CULTURE BLOOD(Performed 09/25/2014) * PTT [facility](Performed 09/25/2014) * PT-INR [facility](Performed 09/25/2014) * URIC ACID BLOOD(Performed 09/25/2014) * COMPREHENSIVE METABOLIC PANEL(Performed 09/25/2014) * PHOSPHORUS BLOOD(Performed 09/25/2014) * MAGNESIUM BLOOD(Performed 09/25/2014) * LDH BLOOD(Performed 09/25/2014) * CBC W AUTO DIFFERENTIAL(Performed 09/25/2014) * CBC W AUTO DIFFERENTIAL(Performed 09/25/2014) * CULTURE BLOOD(Performed 09/25/2014) * XR CHEST 1VW PORTABLE(Performed 09/25/2014) * COMPREHENSIVE METABOLIC PANEL(Performed 09/01/2014) * CBC W AUTO DIFFERENTIAL(Performed 09/01/2014) * CBC W AUTO DIFFERENTIAL(Performed 09/01/2014) * COMPREHENSIVE METABOLIC PANEL(Performed 09/01/2014) * MAGNESIUM BLOOD(Performed 09/01/2014) * PHOSPHORUS BLOOD(Performed 09/01/2014) * CBC W AUTO DIFFERENTIAL(Performed 09/01/2014) * CBC W AUTO DIFFERENTIAL(Performed 09/01/2014) * CULTURE BLOOD(Performed 08/31/2014) * CULTURE BLOOD(Performed 08/31/2014) * PHOSPHORUS BLOOD(Performed 08/31/2014) * MAGNESIUM BLOOD(Performed 08/31/2014) * COMPREHENSIVE METABOLIC PANEL(Performed 08/31/2014) * CBC W AUTO DIFFERENTIAL(Performed 08/31/2014) * CBC W AUTO DIFFERENTIAL(Performed 08/31/2014) * CBC W AUTO DIFFERENTIAL(Performed 08/30/2014) * CBC W AUTO DIFFERENTIAL(Performed 08/30/2014) * PHOSPHORUS BLOOD(Performed 08/30/2014) * MAGNESIUM BLOOD(Performed 08/30/2014) * COMPREHENSIVE METABOLIC PANEL(Performed 08/30/2014) * IR PICC LINE INSERT(Performed 08/04/2014) * IR CENTRAL VENOUS CATH CHECK(Performed 08/04/2014) * MAGNESIUM BLOOD(Performed 08/04/2014) * PHOSPHORUS BLOOD(Performed 08/04/2014) * COMPREHENSIVE METABOLIC PANEL(Performed 08/04/2014) * CBC W AUTO DIFFERENTIAL(Performed 08/04/2014) * CBC W AUTO DIFFERENTIAL(Performed 08/04/2014) * CULTURE BLOOD(Performed 08/04/2014) * CULTURE BLOOD(Performed 08/04/2014) * PHOSPHORUS BLOOD(Performed 08/03/2014) * MAGNESIUM BLOOD(Performed 08/03/2014) * COMPREHENSIVE METABOLIC PANEL(Performed 08/03/2014) * CBC W AUTO DIFFERENTIAL(Performed 08/03/2014) * CBC W AUTO DIFFERENTIAL(Performed 08/03/2014) * PHOSPHORUS BLOOD(Performed 08/02/2014) * MAGNESIUM BLOOD(Performed 08/02/2014) * CBC W AUTO DIFFERENTIAL(Performed 08/02/2014) * CBC W AUTO DIFFERENTIAL(Performed 08/02/2014) * COMPREHENSIVE METABOLIC PANEL(Performed 08/02/2014) * PTT [facility](Performed 08/02/2014) * PT-INR [facility](Performed 08/02/2014) * PHOSPHORUS BLOOD(Performed 07/05/2014) * MAGNESIUM BLOOD(Performed 07/05/2014) * COMPREHENSIVE METABOLIC PANEL(Performed 07/05/2014) * CBC W AUTO DIFFERENTIAL(Performed 07/05/2014) * CBC W AUTO DIFFERENTIAL(Performed 07/05/2014) * CBC W AUTO DIFFERENTIAL(Performed 07/04/2014) * CBC W AUTO DIFFERENTIAL(Performed 07/04/2014) * BILIRUBIN DIRECT(Performed 07/04/2014) * PHOSPHORUS BLOOD(Performed 07/04/2014) * COMPREHENSIVE METABOLIC PANEL(Performed 07/04/2014) * MAGNESIUM BLOOD(Performed 07/04/2014) * CYTOMEGALOVIRUS DNA RT-PCR QUANT(Performed 07/03/2014) * CBC W AUTO DIFFERENTIAL(Performed 07/03/2014) * CBC W AUTO DIFFERENTIAL(Performed 07/03/2014) * CULTURE BLOOD(Performed 07/03/2014) * PHOSPHORUS BLOOD(Performed 07/03/2014) * MAGNESIUM BLOOD(Performed 07/03/2014) * COMPREHENSIVE METABOLIC PANEL(Performed 07/03/2014) * PTT [facility](Performed 07/03/2014) * PT-INR [facility](Performed 07/03/2014) * CULTURE BLOOD(Performed 07/03/2014) * PHOSPHORUS BLOOD(Performed 05/31/2014) * MAGNESIUM BLOOD(Performed 05/31/2014) * COMPREHENSIVE METABOLIC PANEL(Performed 05/31/2014) * CBC W AUTO DIFFERENTIAL(Performed 05/31/2014) * CBC W AUTO DIFFERENTIAL(Performed 05/31/2014) * COMPREHENSIVE METABOLIC PANEL(Performed 05/30/2014) * PHOSPHORUS BLOOD(Performed 05/30/2014) * MAGNESIUM BLOOD(Performed 05/30/2014) * CBC W AUTO DIFFERENTIAL(Performed 05/30/2014) * CBC W AUTO DIFFERENTIAL(Performed 05/30/2014) * PTT [facility](Performed 05/29/2014) * PT-INR [facility](Performed 05/29/2014) * COMPREHENSIVE METABOLIC PANEL(Performed 05/29/2014) * CBC W AUTO DIFFERENTIAL(Performed 05/29/2014) * CBC W AUTO DIFFERENTIAL(Performed 05/29/2014) * CULTURE BLOOD(Performed 05/29/2014) * PHOSPHORUS BLOOD(Performed 05/06/2014) * CBC W AUTO DIFFERENTIAL(Performed 05/06/2014) * CBC W AUTO DIFFERENTIAL(Performed 05/06/2014) * BILIRUBIN DIRECT(Performed 05/06/2014) * COMPREHENSIVE METABOLIC PANEL(Performed 05/06/2014) * MAGNESIUM BLOOD(Performed 05/06/2014) * COMPREHENSIVE METABOLIC PANEL(Performed 05/05/2014) * CBC W AUTO DIFFERENTIAL(Performed 05/05/2014) * CBC W AUTO DIFFERENTIAL(Performed 05/05/2014) * DIFFERENTIAL MANUAL(Performed 05/04/2014) * CBC W AUTO DIFFERENTIAL(Performed 05/04/2014) * COMPREHENSIVE METABOLIC PANEL(Performed 05/04/2014) * CBC W AUTO DIFFERENTIAL(Performed 05/04/2014) * PTT [facility](Performed 05/04/2014) * PT-INR [facility](Performed 05/04/2014) * CULTURE BLOOD(Performed 05/04/2014) * MRI ABDOMEN WWO CONTRAST(Performed 04/17/2014) * CREATININE BLOOD - POCT (IP) [facility](Performed 04/17/2014) * COMPREHENSIVE METABOLIC PANEL(Performed 03/31/2014) * MAGNESIUM BLOOD(Performed 03/31/2014) * PHOSPHORUS BLOOD(Performed 03/31/2014) * LDH BLOOD(Performed 03/31/2014) * CBC W AUTO DIFFERENTIAL(Performed 03/31/2014) * CBC W AUTO DIFFERENTIAL(Performed 03/31/2014) * PT-INR [facility](Performed 03/31/2014) * PTT [facility](Performed 03/31/2014) * CBC W AUTO DIFFERENTIAL(Performed 03/30/2014) * CBC W AUTO DIFFERENTIAL(Performed 03/30/2014) * COMPREHENSIVE METABOLIC PANEL(Performed 03/30/2014) * LDH BLOOD(Performed 03/30/2014) * PHOSPHORUS BLOOD(Performed 03/30/2014) * MAGNESIUM BLOOD(Performed 03/30/2014) * PT-INR [facility](Performed 03/30/2014) * PTT [facility](Performed 03/30/2014) * URINALYSIS NO MICROSCOPIC NO CULTURE(Performed 03/29/2014) * PHOSPHORUS BLOOD(Performed 03/29/2014) * MAGNESIUM BLOOD(Performed 03/29/2014) * COMPREHENSIVE METABOLIC PANEL(Performed 03/29/2014) * LDH BLOOD(Performed 03/29/2014) * URIC ACID BLOOD(Performed 03/29/2014) * CBC W AUTO DIFFERENTIAL(Performed 03/29/2014) * CBC W AUTO DIFFERENTIAL(Performed 03/29/2014) * BASIC METABOLIC PANEL (CALCIUM TOTAL)(Performed 03/04/2014) * COMPREHENSIVE METABOLIC PANEL(Performed 03/04/2014) * PHOSPHORUS BLOOD(Performed 03/04/2014) * MAGNESIUM BLOOD(Performed 03/04/2014) * CBC W AUTO DIFFERENTIAL(Performed 03/04/2014) * CBC W AUTO DIFFERENTIAL(Performed 03/04/2014) * URINALYSIS W/MICROSCOPIC NO CULTURE(Performed 03/03/2014) * CULTURE URINE(Performed 03/03/2014) * CULTURE BLOOD(Performed 03/03/2014) * CULTURE BLOOD(Performed 03/03/2014) * COMPREHENSIVE METABOLIC PANEL(Performed 03/03/2014) * PHOSPHORUS BLOOD(Performed 03/03/2014) * MAGNESIUM BLOOD(Performed 03/03/2014) * CBC W AUTO DIFFERENTIAL(Performed 03/03/2014) * CBC W AUTO DIFFERENTIAL(Performed 03/03/2014) * PT-INR [facility](Performed 03/02/2014) * CBC W AUTO DIFFERENTIAL(Performed 03/02/2014) * DIFFERENTIAL MANUAL(Performed 03/02/2014) * PHOSPHORUS BLOOD(Performed 03/02/2014) * MAGNESIUM BLOOD(Performed 03/02/2014) * COMPREHENSIVE METABOLIC PANEL(Performed 03/02/2014) * CBC W AUTO DIFFERENTIAL(Performed 03/02/2014) * BASIC METABOLIC PANEL (CALCIUM TOTAL)(Performed 02/01/2014) * CBC W AUTO DIFFERENTIAL(Performed 02/01/2014) * COMPREHENSIVE METABOLIC PANEL(Performed 02/01/2014) * BILIRUBIN DIRECT(Performed 02/01/2014) * PT-INR [facility](Performed 02/01/2014) * CBC W AUTO DIFFERENTIAL(Performed 01/31/2014) * BILIRUBIN DIRECT(Performed 01/31/2014) * COMPREHENSIVE METABOLIC PANEL(Performed 01/31/2014) * PT-INR [facility](Performed 01/31/2014) * CULTURE BLOOD(Performed 01/30/2014) * PT-INR [facility](Performed 01/30/2014) * PTT [facility](Performed 01/30/2014) * LDH BLOOD(Performed 01/30/2014) * COMPREHENSIVE METABOLIC PANEL(Performed 01/30/2014) * BILIRUBIN DIRECT(Performed 01/30/2014) * CBC W AUTO DIFFERENTIAL(Performed 01/30/2014) * BASIC METABOLIC PANEL (CALCIUM TOTAL)(Performed 01/04/2014) * PHOSPHORUS BLOOD(Performed 01/04/2014) * MAGNESIUM BLOOD(Performed 01/04/2014) * HEPATIC FUNCTION PANEL(Performed 01/04/2014) * PT-INR [facility](Performed 01/04/2014) * CBC W AUTO DIFFERENTIAL(Performed 01/04/2014) * BASIC METABOLIC PANEL (CALCIUM TOTAL)(Performed 01/03/2014) * PHOSPHORUS BLOOD(Performed 01/03/2014) * MAGNESIUM BLOOD(Performed 01/03/2014) * HEPATIC FUNCTION PANEL(Performed 01/03/2014) * BASIC METABOLIC PANEL (CALCIUM TOTAL)(Performed 01/03/2014) * PHOSPHORUS BLOOD(Performed 01/03/2014) * MAGNESIUM BLOOD(Performed 01/03/2014) * CBC W AUTO DIFFERENTIAL(Performed 01/03/2014) * PT-INR [facility](Performed 01/03/2014) * XR CHEST 1VW(Performed 01/02/2014) * PT-INR [facility](Performed 01/02/2014) * PTT [facility](Performed 01/02/2014) * TSH(Performed 01/02/2014) * COMPREHENSIVE METABOLIC PANEL(Performed 01/02/2014) * PHOSPHORUS BLOOD(Performed 01/02/2014) * MAGNESIUM BLOOD(Performed 01/02/2014) * LDH BLOOD(Performed 01/02/2014) * CBC W AUTO DIFFERENTIAL(Performed 01/02/2014) * URINALYSIS REFLEX TO MICROSCOPIC NO CULTURE(Performed 01/02/2014) * EKG 12-LEAD(Performed 01/02/2014) * T4 FREE(Performed 12/19/2013) * TSH(Performed 12/19/2013) * COMPREHENSIVE METABOLIC PANEL(Performed 12/19/2013) * LDH BLOOD(Performed 12/19/2013) * CBC W AUTO DIFFERENTIAL(Performed 12/19/2013) * PHOSPHORUS BLOOD(Performed 10/31/2013) * MAGNESIUM BLOOD(Performed 10/31/2013) * BASIC METABOLIC PANEL (CALCIUM TOTAL)(Performed 10/31/2013) * CBC W AUTO DIFFERENTIAL(Performed 10/31/2013) * PHOSPHORUS BLOOD(Performed 10/31/2013) * MAGNESIUM BLOOD(Performed 10/31/2013) * BASIC METABOLIC PANEL (CALCIUM TOTAL)(Performed 10/31/2013) * HEPATIC FUNCTION PANEL(Performed 10/31/2013) * PHOSPHORUS BLOOD(Performed 10/30/2013) * MAGNESIUM BLOOD(Performed 10/30/2013) * BASIC METABOLIC PANEL (CALCIUM TOTAL)(Performed 10/30/2013) * PHOSPHORUS BLOOD(Performed 10/30/2013) * MAGNESIUM BLOOD(Performed 10/30/2013) * BASIC METABOLIC PANEL (CALCIUM TOTAL)(Performed 10/30/2013) * CBC W AUTO DIFFERENTIAL(Performed 10/30/2013) * PHOSPHORUS BLOOD(Performed 10/30/2013) * MAGNESIUM BLOOD(Performed 10/30/2013) * BASIC METABOLIC PANEL (CALCIUM TOTAL)(Performed 10/30/2013) * HEPATIC FUNCTION PANEL(Performed 10/30/2013) * PHOSPHORUS BLOOD(Performed 10/29/2013) * MAGNESIUM BLOOD(Performed 10/29/2013) * BASIC METABOLIC PANEL (CALCIUM TOTAL)(Performed 10/29/2013) * CULTURE BLOOD(Performed 10/29/2013) * PHOSPHORUS BLOOD(Performed 10/29/2013) * MAGNESIUM BLOOD(Performed 10/29/2013) * BASIC METABOLIC PANEL (CALCIUM TOTAL)(Performed 10/29/2013) * PHOSPHORUS BLOOD(Performed 10/29/2013) * MAGNESIUM BLOOD(Performed 10/29/2013) * BASIC METABOLIC PANEL (CALCIUM TOTAL)(Performed 10/29/2013) * HEPATIC FUNCTION PANEL(Performed 10/29/2013) * CBC W AUTO DIFFERENTIAL(Performed 10/29/2013) * PHOSPHORUS BLOOD(Performed 10/28/2013) * MAGNESIUM BLOOD(Performed 10/28/2013) * BASIC METABOLIC PANEL (CALCIUM TOTAL)(Performed 10/28/2013) * C DIFFICILE GDH AG + TOXIN A+B(Performed 10/28/2013) * PHOSPHORUS BLOOD(Performed 10/28/2013) * MAGNESIUM BLOOD(Performed 10/28/2013) * BASIC METABOLIC PANEL (CALCIUM TOTAL)(Performed 10/28/2013) * CBC W AUTO DIFFERENTIAL(Performed 10/28/2013) * PHOSPHORUS BLOOD(Performed 10/28/2013) * MAGNESIUM BLOOD(Performed 10/28/2013) * BASIC METABOLIC PANEL (CALCIUM TOTAL)(Performed 10/28/2013) * HEPATIC FUNCTION PANEL(Performed 10/28/2013) * PHOSPHORUS BLOOD(Performed 10/27/2013) * MAGNESIUM BLOOD(Performed 10/27/2013) * BASIC METABOLIC PANEL (CALCIUM TOTAL)(Performed 10/27/2013) * CULTURE BLOOD(Performed 10/27/2013) * PHOSPHORUS BLOOD(Performed 10/27/2013) * MAGNESIUM BLOOD(Performed 10/27/2013) * BASIC METABOLIC PANEL (CALCIUM TOTAL)(Performed 10/27/2013) * PHOSPHORUS BLOOD(Performed 10/27/2013) * MAGNESIUM BLOOD(Performed 10/27/2013) * BASIC METABOLIC PANEL (CALCIUM TOTAL)(Performed 10/27/2013) * HEPATIC FUNCTION PANEL(Performed 10/27/2013) * CBC W AUTO DIFFERENTIAL(Performed 10/27/2013) * CULTURE BLOOD(Performed 10/26/2013) * URINALYSIS W/MICROSCOPIC NO CULTURE(Performed 10/26/2013) * T4 FREE(Performed 10/26/2013) * TSH(Performed 10/26/2013) * LDH BLOOD(Performed 10/26/2013) * HEPATIC FUNCTION PANEL(Performed 10/26/2013) * PHOSPHORUS BLOOD(Performed 10/26/2013) * MAGNESIUM BLOOD(Performed 10/26/2013) * BASIC METABOLIC PANEL (CALCIUM TOTAL)(Performed 10/26/2013) * PT-INR [facility](Performed 10/26/2013) * PTT [facility](Performed 10/26/2013) * CBC W AUTO DIFFERENTIAL(Performed 10/26/2013) * CULTURE BLOOD(Performed 10/26/2013) * EKG 12-LEAD(Performed 10/26/2013) * BASIC METABOLIC PANEL (CALCIUM TOTAL)(Performed 10/17/2013) * CBC W AUTO DIFFERENTIAL(Performed 10/17/2013) * PT-INR [facility](Performed 10/17/2013) * PHOSPHORUS BLOOD(Performed 10/17/2013) * MAGNESIUM BLOOD(Performed 10/17/2013) * HEPATIC FUNCTION PANEL(Performed 10/17/2013) * BASIC METABOLIC PANEL (CALCIUM TOTAL)(Performed 10/17/2013) * CULTURE BLOOD(Performed 10/16/2013) * CULTURE BLOOD(Performed 10/16/2013) * BASIC METABOLIC PANEL (CALCIUM TOTAL)(Performed 10/16/2013) * BASIC METABOLIC PANEL (CALCIUM TOTAL)(Performed 10/16/2013) * CBC W AUTO DIFFERENTIAL(Performed 10/16/2013) * PT-INR [facility](Performed 10/16/2013) * BASIC METABOLIC PANEL (CALCIUM TOTAL)(Performed 10/16/2013) * PHOSPHORUS BLOOD(Performed 10/16/2013) * MAGNESIUM BLOOD(Performed 10/16/2013) * HEPATIC FUNCTION PANEL(Performed 10/16/2013) * BASIC METABOLIC PANEL (CALCIUM TOTAL)(Performed 10/15/2013) * BASIC METABOLIC PANEL (CALCIUM TOTAL)(Performed 10/15/2013) * C DIFFICILE GDH AG + TOXIN A+B(Performed 10/15/2013) * CBC W AUTO DIFFERENTIAL(Performed 10/15/2013) * MAGNESIUM BLOOD(Performed 10/15/2013) * HEPATIC FUNCTION PANEL(Performed 10/15/2013) * PHOSPHORUS BLOOD(Performed 10/15/2013) * BASIC METABOLIC PANEL (CALCIUM TOTAL)(Performed 10/15/2013) * PT-INR SL[facility](Performed 10/15/2013) * EKG 12-LEAD(Performed 10/15/2013) * CULTURE BLOOD(Performed 10/14/2013) * CULTURE BLOOD(Performed 10/14/2013) * BASIC METABOLIC PANEL (CALCIUM TOTAL)(Performed 10/14/2013) * BASIC METABOLIC PANEL (CALCIUM TOTAL)(Performed 10/14/2013) * MAGNESIUM BLOOD(Performed 10/14/2013) * HEPATIC FUNCTION PANEL(Performed 10/14/2013) * BASIC METABOLIC PANEL (CALCIUM TOTAL)(Performed 10/14/2013) * CBC W AUTO DIFFERENTIAL(Performed 10/14/2013) * PT-INR SLH(Performed 10/14/2013) * BASIC METABOLIC PANEL (CALCIUM TOTAL)(Performed 10/13/2013) * MAGNESIUM BLOOD(Performed 10/13/2013) * HEPATIC FUNCTION PANEL(Performed 10/13/2013) * BASIC METABOLIC PANEL (CALCIUM TOTAL)(Performed 10/13/2013) * PT-INR [facility](Performed 10/13/2013) * CBC W AUTO DIFFERENTIAL(Performed 10/13/2013) * LDH BLOOD(Performed 10/12/2013) * HEPATIC FUNCTION PANEL(Performed 10/12/2013) * PHOSPHORUS BLOOD(Performed 10/12/2013) * MAGNESIUM BLOOD(Performed 10/12/2013) * BASIC METABOLIC PANEL (CALCIUM TOTAL)(Performed 10/12/2013) * PT-INR [facility](Performed 10/12/2013) * PTT [facility](Performed 10/12/2013) * CBC W AUTO DIFFERENTIAL(Performed 10/12/2013) * CULTURE BLOOD(Performed 10/12/2013) * EKG 12-LEAD(Performed 10/12/2013) * COMPREHENSIVE METABOLIC PANEL(Performed 09/18/2013) * CBC W AUTO DIFFERENTIAL(Performed 09/18/2013) * LAB HISTORICAL RESULTS-ONBASE(Performed 09/18/2013) * EKG 12-LEAD(Performed 08/25/2013) * COMPREHENSIVE METABOLIC PANEL(Performed 08/25/2013) * CBC W AUTO DIFFERENTIAL(Performed 08/25/2013) * CBC W AUTO DIFFERENTIAL(Performed 08/18/2013) * PHOSPHORUS BLOOD(Performed 08/18/2013) * BILIRUBIN DIRECT(Performed 08/18/2013) * MAGNESIUM BLOOD(Performed 08/18/2013) * COMPREHENSIVE METABOLIC PANEL(Performed 08/18/2013) * PT-INR SL[facility](Performed 08/18/2013) * PHOSPHORUS BLOOD(Performed 08/17/2013) * MAGNESIUM BLOOD(Performed 08/17/2013) * COMPREHENSIVE METABOLIC PANEL(Performed 08/17/2013) * BILIRUBIN DIRECT(Performed 08/17/2013) * PT-INR [facility](Performed 08/17/2013) * CBC W AUTO DIFFERENTIAL(Performed 08/17/2013) * PT-INR [facility](Performed 08/16/2013) * BILIRUBIN DIRECT(Performed 08/16/2013) * COMPREHENSIVE METABOLIC PANEL(Performed 08/16/2013) * PHOSPHORUS BLOOD(Performed 08/16/2013) * MAGNESIUM BLOOD(Performed 08/16/2013) * CBC W AUTO DIFFERENTIAL(Performed 08/16/2013) * CBC W AUTO DIFFERENTIAL(Performed 08/16/2013) * PT-INR [facility](Performed 08/16/2013) * BILIRUBIN DIRECT(Performed 08/16/2013) * MAGNESIUM BLOOD(Performed 08/16/2013) * COMPREHENSIVE METABOLIC PANEL(Performed 08/16/2013) * PHOSPHORUS BLOOD(Performed 08/16/2013) * CULTURE BLOOD(Performed 08/15/2013) * CULTURE BLOOD(Performed 08/15/2013) * C DIFFICILE GDH AG + TOXIN A+B(Performed 08/15/2013) * CBC W AUTO DIFFERENTIAL(Performed 08/15/2013) * BILIRUBIN DIRECT(Performed 08/15/2013) * MAGNESIUM BLOOD(Performed 08/15/2013) * COMPREHENSIVE METABOLIC PANEL(Performed 08/15/2013) * PHOSPHORUS BLOOD(Performed 08/15/2013) * PT-INR [facility](Performed 08/15/2013) * EKG 12-LEAD(Performed 08/14/2013) * CBC W AUTO DIFFERENTIAL(Performed 08/14/2013) * PT-INR [facility](Performed 08/14/2013) * PHOSPHORUS BLOOD(Performed 08/14/2013) * BILIRUBIN DIRECT(Performed 08/14/2013) * MAGNESIUM BLOOD(Performed 08/14/2013) * COMPREHENSIVE METABOLIC PANEL(Performed 08/14/2013) * CULTURE BLOOD(Performed 08/13/2013) * CULTURE BLOOD(Performed 08/13/2013) * CULTURE BLOOD(Performed 08/13/2013) * VAS BILATERAL VENOUS DUPLEX LE(Performed 08/13/2013) * CBC W AUTO DIFFERENTIAL(Performed 08/13/2013) * BILIRUBIN DIRECT(Performed 08/13/2013) * PHOSPHORUS BLOOD(Performed 08/13/2013) * MAGNESIUM BLOOD(Performed 08/13/2013) * COMPREHENSIVE METABOLIC PANEL(Performed 08/13/2013) * PT-INR [facility](Performed 08/13/2013) * BILIRUBIN DIRECT(Performed 08/12/2013) * PHOSPHORUS BLOOD(Performed 08/12/2013) * MAGNESIUM BLOOD(Performed 08/12/2013) * COMPREHENSIVE METABOLIC PANEL(Performed 08/12/2013) * CBC W AUTO DIFFERENTIAL(Performed 08/12/2013) * PT-INR [facility](Performed 08/12/2013) * LDH BLOOD(Performed 08/11/2013) * HEPATIC FUNCTION PANEL(Performed 08/11/2013) * PHOSPHORUS BLOOD(Performed 08/11/2013) * MAGNESIUM BLOOD(Performed 08/11/2013) * BASIC METABOLIC PANEL (CALCIUM TOTAL)(Performed 08/11/2013) * PT-INR [facility](Performed 08/11/2013) * CBC W AUTO DIFFERENTIAL(Performed 08/11/2013) * CULTURE BLOOD(Performed 08/11/2013) * CULTURE URINE(Performed 08/11/2013) * BASIC METABOLIC PANEL (CALCIUM TOTAL)(Performed 08/05/2013) * BASIC METABOLIC PANEL (CALCIUM TOTAL)(Performed 08/05/2013) * LAB HISTORICAL RESULTS-ONBASE(Performed 08/05/2013) * CBC W AUTO DIFFERENTIAL(Performed 08/03/2013) * PT-INR [facility](Performed 08/03/2013) * PTT [facility](Performed 08/03/2013) * COMPREHENSIVE METABOLIC PANEL(Performed 08/03/2013) * PHOSPHORUS BLOOD(Performed 08/03/2013) * MAGNESIUM BLOOD(Performed 08/03/2013) * BILIRUBIN DIRECT(Performed 08/03/2013) * XR CHEST 1VW PORTABLE(Performed 08/02/2013) * CBC W AUTO DIFFERENTIAL(Performed 08/02/2013) * BILIRUBIN DIRECT(Performed 08/02/2013) * COMPREHENSIVE METABOLIC PANEL(Performed 08/02/2013) * PHOSPHORUS BLOOD(Performed 08/02/2013) * MAGNESIUM BLOOD(Performed 08/02/2013) * PT-INR [facility](Performed 08/02/2013) * PTT [facility](Performed 08/02/2013) * URINALYSIS W/MICROSCOPIC NO CULTURE(Performed 08/01/2013) * CREATININE URINE RANDOM(Performed 08/01/2013) * SODIUM URINE RANDOM(Performed 08/01/2013) * LDH BLOOD(Performed 08/01/2013) * URIC ACID BLOOD(Performed 08/01/2013) * PT-INR [facility](Performed 08/01/2013) * PTT [facility](Performed 08/01/2013) * COMPREHENSIVE METABOLIC PANEL(Performed 08/01/2013) * PHOSPHORUS BLOOD(Performed 08/01/2013) * MAGNESIUM BLOOD(Performed 08/01/2013) * CBC W AUTO DIFFERENTIAL(Performed 08/01/2013) * BILIRUBIN DIRECT(Performed 08/01/2013) * COMPREHENSIVE METABOLIC PANEL(Performed 07/31/2013) * PHOSPHORUS BLOOD(Performed 07/31/2013) * MAGNESIUM BLOOD(Performed 07/31/2013) * BILIRUBIN DIRECT(Performed 07/31/2013) * CBC W AUTO DIFFERENTIAL(Performed 07/31/2013) * PT-INR [facility](Performed 07/31/2013) * PTT [facility](Performed 07/31/2013) * CULTURE BLOOD(Performed 07/30/2013) * CULTURE BLOOD(Performed 07/30/2013) * CBC W AUTO DIFFERENTIAL(Performed 07/30/2013) * BILIRUBIN DIRECT(Performed 07/30/2013) * COMPREHENSIVE METABOLIC PANEL(Performed 07/30/2013) * PHOSPHORUS BLOOD(Performed 07/30/2013) * MAGNESIUM BLOOD(Performed 07/30/2013) * PT-INR [facility](Performed 07/30/2013) * PTT [facility](Performed 07/30/2013) * VAS BILATERAL VENOUS DUPLEX LE(Performed 07/29/2013) * COMPREHENSIVE METABOLIC PANEL(Performed 07/29/2013) * PHOSPHORUS BLOOD(Performed 07/29/2013) * MAGNESIUM BLOOD(Performed 07/29/2013) * PT-INR [facility](Performed 07/29/2013) * PTT [facility](Performed 07/29/2013) * CBC W AUTO DIFFERENTIAL(Performed 07/29/2013) * BILIRUBIN DIRECT(Performed 07/29/2013) * URINALYSIS W/MICROSCOPIC NO CULTURE(Performed 07/28/2013) * PTT [facility](Performed 07/28/2013) * BILIRUBIN TOTAL BLOOD(Performed 07/28/2013) * COMPREHENSIVE METABOLIC PANEL(Performed 07/28/2013) * PHOSPHORUS BLOOD(Performed 07/28/2013) * MAGNESIUM BLOOD(Performed 07/28/2013) * BILIRUBIN DIRECT(Performed 07/28/2013) * LDH BLOOD(Performed 07/28/2013) * PT-INR [facility](Performed 07/28/2013) * CBC W AUTO DIFFERENTIAL(Performed 07/28/2013) * IR RICK CATH INSERT(Performed 07/28/2013) * IR PICC LINE INSERT(Performed 07/28/2013) * IR US GUIDE VASCULAR ACCESS(Performed 07/28/2013) * CBC W/O DIFFERENTIAL(Performed 07/28/2013) * BASIC METABOLIC PANEL (CALCIUM TOTAL)(Performed 07/28/2013) * PTT [facility](Performed 07/28/2013) * PT-INR SL(Performed 07/28/2013) * PATH CONSULT CLINICAL(Performed 07/07/2013) * LAB HISTORICAL RESULTS-ONBASE(Performed 07/04/2013) Results * (ABNORMAL) URINALYSIS REFLEX TO MICROSCOPIC NO CULTURE (11/06/2024 11:56 AM SALES OUTFITTER) Only the most recent of6 resultswithin the time period is included. Specific [place] UA 1.016 1.005 - 1.030 [facility] INSURANCE [...] was indicated and was performed. Performed at: [email or web address] [address] [id number] Stagecraft Teacher: Alejandro Doshi PhD, Phone: [phone] WBC UA 6-10(A) 0 - 5 /hpf [facility] INSURANCE BILL RBC UA 0-2 0 - 2 /hpf [facility] INSURANCE BILL Epithelial Cells (non renal) 0-10 0 - 10 /hpf [facility] INSURANCE BILL Casts ua None seen None seen /lpf [facility] INSURANCE BILL Bacteria UA Few None seen/Few [facility] INSURANCE BILL Urine URINE SPECIMEN OBTAINED BY CLEAN CATCH PROCEDURE / Unknown 11/06/2024 11:56 AM SALES OUTFITTER 11/06/2024 Narrative [facility] INSURANCE BILL - 11/07/2024 5:35 AM SALES OUTFITTER Performed at: [email or web address] [address] [id number] Stagecraft Teacher: Alejandro Doshi PhD, Phone: [phone] Kelly Coates ONCOLOGY PHYSICIAN ASSISTANT-HEALTH EDUCATOR LAB - URINAL YSIS ORDERABLES [facility] INSURANCE BILL [address] [place] [address] * LAB RESULTS ORDER (11/06/2024) Only the most recent of33 resultswithin the time period is included. 11/06/2024 Narrative 11/06/2024 Ordered by an unspecified provider. Scanned Document LAB - THERAPEUTIC DR UG MONITORING ORDERABLES * (ABNORMAL) URINALYSIS REFLEX MICROSCOPIC REFLEX CULTURE (09/24/2024 11:37 AM SALES OUTFITTER) Specific [place] UA 1.009 1.005 - 1.030 [facility] INSURANCE [...] reflex to a Urine Culture. Performed at: [facility] [address] [place], [place] [id number] Stagecraft Teacher: Alejandro Doshi PhD, Phone: [phone] WBC UA None seen 0 - 5 [...] CATCH PROCEDURE / Unknown 09/24/2024 11:37 AM SALES OUTFITTER 09/24/2024 Narrative [facility] INSURANCE BILL - 09/25/2024 3:36 AM SALES OUTFITTER Performed at: [address] [place] [id number] Stagecraft Teacher: Alejandro Doshi PhD, Phone: [phone] Kelly Aminata ONCOLOGY PHYSICIAN ASSISTANT-HEALTH EDUCATOR LAB - URINAL YSIS ORDERABLES Performing Organization Address [facility] de Phone Number [facility] [address] [place] [address] * (ABNORMAL) PROTEIN URINE TIMED QUANTITATIVE (08/20/2024 11:45 AM CDT) Only the most recent of8 resultswithin the time period is included. Protein Urine 145.9 Not Estab. mg/dL [facility] INSURANCE BILL Protein 24 Hour Urine 4,523(H) 30 - 150 mg/24 hr [facility] INS[facility] 08/20/2024 11:4 5 AM CDT 08/21/2024 Narrative [facility] INSURANCE BILL - 08/22/2024 8:38 AM CDT Performed at: [address] [id number] Stagecraft Teacher: Alejandro Doshi PhD, Phone: [phone] Kelly Aminata ONCOLOGY PHYSICIAN ASSISTANT-HEALTH EDUCATOR LAB - URINE CHEMISTRY ORDERABLES Performing Organization Address [facility] de Phone Number [facility] [address] [place] [address] * (ABNORMAL) URINALYSIS NO MICROSCOPIC NO CULTURE (08/20/2024 9:52 AM CDT) Only the most recent of52 resultswithin the time period is included. Color UA Yellow Straw, Yellow 08/20/2024 10:11 AM CDT [facility] Clarity UA Slt Cloudy(A) Clear 08/20/2024 10:11 AM CDT [facility] Specific [place] UA 1.003(L) 1.005 - 1.030 08/20/2024 10:11 AM [facility] pH UA 8.0 5.0 - 8.0 pH 08/20/2024 10:11 AM [facility] Protein UA 3+(A) Negative 08/20/2024 10:11 AM [facility] Glucose UA Negative Negative 08/20/2024 10:11 AM [facility] Ketone UA Negative Negative 08/20/2024 10:11 AM [facility] Bilirubin UA Negative Negative 08/20/2024 10:11 AM [facility] Blood UA Negative Negative 08/20/2024 10:11 AM [facility] Nitrite UA Negative Negative 08/20/2024 10:11 AM [facility] Leukocyte Esterase Negative Negative 08/20/2024 10:11 AM [facility] Urobilinogen UA Negative Negative mg/dL 08/20/2024 10:11 AM [facility] Urine URINE SPECIMEN OBTAINED BY CLEAN CATCH PROCEDURE / Unknown Collection / Unknown 08/20/2024 9:52 AM CDT 08/20/2024 10:00 AM [facility] - 08/20/2024 10:11 AM T Wai Tse MD LAB - URINALYSIS ORD ERABLES [facility] [address] [place] [address], [facility] [phone] * (ABNORMAL) CBC W AUTO DIFFERENTIAL (08/20/2024 9:52 AM T) Only the most recent of186 resultswithin the time period is included. WBC 4.6 4.0 - 10.7 x10E9/L 08/20/2024 10:09 AM [facility] RBC Count 4.91 3.90 - 5.20 x10E12/L 08/20/2024 10:09 AM [facility] Hemoglobin 16.1(H) 11.9 - 15.8 g/dL 08/20/2024 10:09 AM [facility] Hematocrit 46.2(H) 34.8 - 46.1 % 08/20/2024 10:09 AM [facility] MCV 94.1 80.0 - 98.0 fL 08/20/2024 10:09 AM [facility] MCH 32.8 26.7 - 33.6 pg 08/20/2024 10:09 AM [facility] MCHC 34.8 31.7 - 36.3 g/dL 08/20/2024 10:09 AM [facility] RDW-CV 13.5 11.3 - 14.8 % 08/20/2024 10:09 AM [facility] Platelet Count 199 150 - 420 x10E9/L 08/20/2024 10:09 AM [facility] MPV 9.7 7.8 - 11.4 fL 08/20/2024 10:09 AM [facility] Preliminary Absolute Neutrophil 2.89 1.60 - 7.50 x10E9/L 08/20/2024 10:09 AM [facility] Neutrophil % 62.9 41.0 - 74.0 % 08/20/2024 10:09 AM [facility] Lymphocyte % 24.0 17.0 - 47.0 % 08/20/2024 10:09 AM [facility] Monocyte % 8.9 3.0 - 11.0 % 08/20/2024 10:09 AM [facility] Eosinophil % 3.3 0.0 - 7.0 % 08/20/2024 10:09 AM [facility] Basophil % 0.7 0.0 - 1.6 % 08/20/2024 10:09 AM [facility] Immature Granulocytes % 0.2 0.0 - 1.0 % 08/20/2024 10:09 AM [facility] Neutrophil Absolute 2.89 1.60 - 7.50 x10E9/L 08/20/2024 10:09 AM [facility] Lymphocyte Absolute 1.10 1.00 - 4.40 x10E9/L 08/20/2024 10:09 AM [facility] Monocyte Absolute 0.41 0.15 - 1.00 x10E9/L 08/20/2024 10:09 AM [facility] Eosinophil Absolute 0.15 0.00 - 0.60 x10E9/L 08/20/2024 10:09 AM [facility] Basophil Absolute 0.03 0.00 - 0.13 x10E9/L 08/20/2024 10:09 AM [facility] Blood BLOOD SPECIMEN / Unknown Venipuncture / Unknown 08/20/2024 9:52 AM CDT 08/20/2024 10:02 AM CDT Wai Tse MD LAB - HEMATOLOGY ORD ERABLES [facility] [address] [place] [address], [facility] [phone] * (ABNORMAL) COMPREHENSIVE METABOLIC PANEL (08/20/2024 9:52 AM [facility]) Only the most recent of131 resultswithin the time period is included. BUN 8 7 - 26 mg/dL 08/20/2024 10:33 AM [facility] Creatinine 0.90 0.56 - 0.96 mg/dL 08/20/2024 10:33 AM [facility] Sodium 139 136 - 145 mmol/L 08/20/2024 10:33 AM [facility] Potassium 4.7(H) 3.5 - 4.5 mmol/L 08/20/2024 10:33 AM [facility] Chloride 106 98 - 107 mmol/L 08/20/2024 10:33 AM [facility] CO2 24 22 - 29 mmol/L 08/20/2024 10:33 AM [facility] Glucose 93 70 - 115 mg/dL 08/20/2024 10:33 AM [facility] Calcium 10.5(H) 8.4 - 10.2 mg/dL 08/20/2024 10:33 AM [facility] Protein Total 7.4 6.0 - 8.3 g/dL 08/20/2024 10:33 AM [facility] Albumin 3.9 3.4 - 5.0 g/dL 08/20/2024 10:33 AM CDT [facility] Bilirubin Total 2.3(H) 0.2 - 1.2 mg/dL 08/20/2024 10:33 AM [facility] Alkaline Phosphatase 63 40 - 150 U/L 08/20/2024 10:33 AM [facility] ALT 34 5 - 55 U/L 08/20/2024 10:33 AM [facility] AST 37(H) 5 - 34 U/L 08/20/2024 10:33 AM [facility] Anion Gap 9 6 - 16 08/20/2024 10:33 AM [facility] BUN/Creatinine Ratio 9 7 - 23 08/20/2024 10:33 AM [facility] Osmolality Calculated 286 275 - 295 mOsm/kg 08/20/2024 10:33 AM [facility] Albumin/Globulin Ratio 1.1 1.1 - 2.3 08/20/2024 10:33 AM [facility] eGFR by CKD-EPI 71(L) >=90 mL/min/1.7 3 m2 08/20/2024 10:33 AM [facility] Blood BLOOD SPECIMEN / Unknown Venipuncture / Unknown 08/20/2024 9:52 AM CDT 08/20/2024 10:20 AM CDT Wai Tse MD LAB - CHEMISTRY HELENA LANDA [facility] [address] [place] [address], [facility] [phone] * MAGNESIUM BLOOD (08/20/2024 9:52 AM CDT) Only the most recent of105 resultswithin the time period is included. Magnesium 2.0 1.6 - 2.6 mg/dL 08/20/2024 10:33 AM T [facility] Blood BLOOD SPECIMEN / Unknown Venipuncture / Unknown 08/20/2024 9:52 AM CDT 08/20/2024 10:20 AM CDT Wai Tse MD LAB - CHEMISTRY HELENA LANDA [facility] [address] [place] [address], [facility] [phone] * CT CHEST ABDOMEN PELVIS W CONT (08/08/2024 10:27 AM CDT) Only the most recent of13 resultswithin the time period is included. Anatomical Region Laterality Modality Chest, Abdomen, Pelvis Computed Tomography 08/08/2024 10:5 3 AM CDT Impressions 08/08/2024 12:13 PM CDT Impression: 1.No CT evidence of metastatic disease within the chest abdomen or pelvis. 2.Postsurgical changes of a right nephrectomy. > Dictated by Deion Benitez DO (radiology scheduler). I, Maribel Reyes MD have personally reviewed and interpreted this examination/study. > Interpreting Provider: Maribel Reyes MD on 08/08/2024 12:13 PM Narrative 08/08/2024 12:13 PM CDT PROCEDURE: CT CHEST ABDOMEN PELVIS W CONT, DATE/TIME OF EXAM: 08/08/2024 10:29 AM, LOCATION [facility] INDICATION: C78.02: 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) C64.1: Malignant neoplasm of right kidney, except renal pelvis (HCC) ADDITIONAL CLINICAL INFORMATION: Ordering Provider Reason For Exam: Kidney cancer. On surveillance. Prior mediastinal lymphadenopathy post SBRT. COMPARISON: Multiple CT chest abdomen pelvis with contrast most recent dated 04/03/2024 TECHNIQUE: CT of the chest, abdomen, and pelvis was performed after the uneventful administration of 100 mL of Isovue 370 intravenous contrast according to standard protocol. Findings: Chest: Lower Neck and Axillae: Nonspecific subcentimeter lymph nodes in the left axillary region with adjacent fat stranding appears relatively similar when compared to prior exam. Lungs: Postsurgical changes of a left upper lung resection. No pulmonary parenchymal or airway process is present. No suspicious pulmonary nodules are identified. No pleural fluid or pneumothorax is present. Heart and Pericardium: The cardiac chambers are normal in size. No pericardial fluid or thickening is present. Mediastinum and Damaris: No mediastinal hemorrhage is present. No enlarged lymph nodes are present. Thoracic Vasculature: The aorta and its branch vessels are atherosclerotic. Abdomen/pelvis: Liver: Redemonstrated multiple hypodense lesions in the liver, the largest measuring 1.9 cm in maximum diameter (image 110 series 3), previously 1.9 cm when measured in a similar manner. Overall appearance is relatively similar when compared to prior exam. Accessory left hepatic vein. Gallbladder and Bile Ducts: Normal. Spleen: Normal. Pancreas: Normal. Adrenals: Normal. Kidneys: Right kidney is surgically absent. No enhancing masses seen in the surgical bed to suggest residual or recurrent disease. The left kidney appears unremarkable. Redemonstrated is mild dilatation of the left ureter which appears more prominent when compared to prior exam. The left vesicoureteral junction is not well evaluated due to streak artifact from the bilateral hip arthroplasties. Gastrointestinal: The stomach and visualized loops of large and small bowel are unremarkable. Normal appendix. Mesentery/Peritoneum/Retroperitoneum: No free intraperitoneal air. No free fluid in the abdomen or pelvis. Pelvis: The bladder and uterus are not well evaluated due to streak artifact from the bilateral hip arthroplasties. Abdominal Vasculature: Atherosclerotic calcification of the aorta and its branch vessels. Bones: Bilateral hip arthroplasty. Mild degenerative changes of the thoracolumbar spine. Grade 1 anterolisthesis of L4 on L5. Bone windows demonstrate no suspicious lytic or blastic lesions. Soft tissues: Normal. Procedure Note Maribel Reyes MD - 08/08/2024 PROCEDURE: CT CHEST ABDOMEN PELVIS W CONT, DATE/TIME OF EXAM:08/08/2024 10:29 AM, LOCATION [facility] INDICATION: C78.02: 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) C64.1: Malignant neoplasm of right kidney, except renal pelvis (HCC) ADDITIONAL CLINICAL INFORMATION: Ordering Provider Reason For Exam: Kidney cancer. On surveillance.Prior mediastinal lymphadenopathy post SBRT. COMPARISON: Multiple CT chest abdomen pelvis with contrast most recent dated04/03/2024 TECHNIQUE: CT of the chest, abdomen, and pelvis was performed after the uneventful administration of 100 mL of Isovue 370 intravenous contrast according to standard protocol. Findings: Chest: Lower Neck and Axillae: Nonspecific subcentimeter lymph nodes in the left axillary region with adjacent fat stranding appears relatively similar when compared to prior exam. Lungs: Postsurgical changes of a left upper lung resection. No pulmonary parenchymal or airway process is present. No suspicious pulmonarynodules are identified. No pleural fluid or pneumothorax is present. Heart and Pericardium: The cardiac chambers are normal in size. No pericardial fluid orthickening is present. Mediastinum and Damaris: No mediastinal hemorrhage is present. No enlarged lymph nodes arepresent. Thoracic Vasculature: The aorta and its branch vessels are atherosclerotic. Abdomen/pelvis: Liver: Redemonstrated multiple hypodense lesions in the liver, the largest measuring 1.9 cm in maximum diameter (image 110 series 3), previously1.9 cm when measured in a similar manner. Overall appearance is relatively similar when compared to prior exam. Accessory left hepatic vein. Gallbladder and Bile Ducts: Normal. Spleen: Normal. Pancreas: Normal. Adrenals: Normal. Kidneys: Right kidney is surgically absent. No enhancing masses seen in thesurgical bed to suggest residual or recurrent disease. The left kidney appears unremarkable. Redemonstrated is mild dilatation of the left ureter which appears more prominent when compared to prior exam. The leftvesicoureteral junction is not well evaluated due to streak artifact from the bilateral hip arthroplasties. Gastrointestinal: The stomach and visualized loops of large and small bowel areunremarkable. Normal appendix. Mesentery/Peritoneum/Retroperitoneum: No free intraperitoneal air. No free fluid in the abdomen or pelvis. Pelvis: The bladder and uterus are not well evaluated due to streak artifactfrom the bilateral hip arthroplasties. Abdominal Vasculature: Atherosclerotic calcification of the aorta and its branch vessels. Bones: Bilateral hip arthroplasty. Mild degenerative changes of thethoracolumbar spine. Grade 1 anterolisthesis of L4 on L5. Bone windows demonstrate no suspicious lytic or blastic lesions. Soft tissues: Normal. Impression: 1.No CT evidence of metastatic disease within the chest abdomen orpelvis. 2.Postsurgical changes of a right nephrectomy. > Dictated by Deion Benitez DO (radiology scheduler). I, Maribel Reyes MD have personally reviewed and interpreted this examination/study. > Interpreting Provider: Maribel Reyes MD on 2:13 PM Ronnie Mcqueen MD CT ORDERABLES * CREATININE - POCT INTERFACED (11/28/2023 9:39 AM SALES OUTFITTER) Only the most recent of2 resultswithin the time period is included. Creatinine POCT 0.59 0.30 - 1.30 mg/dL 11/28/2023 9:48 AM SALES OUTFITTER [facility] eGFR >90 >90 mL/min/1.7 3 m2 11/28/2023 9:48 AM [facility] Blood BLOOD SPECIMEN / Unknown 11/28/2023 9:39 AM SALES OUTFITTER 11/28/2023 9:48 AM SALES OUTFITTER Ronnie Mcqueen MD LAB - POINT OF CARE ORDERABLES [place] [phone], [facility] [phone] * Rad Onc Aria Session Summary (02/22/2023 2:04 PM CDT) Course ID [id number] [id number] RAD ONC TREATMENT Course First Treatment Date 02/14/2023 1:27 PM RAD ONC TREATMENT Reference Point ID [email or web address] RAD ONC TREATMENT Reference Point Dosage Given to Date 30 Gy RAD ONC TREATMENT Reference Point Session Dosage Given 6 Gy RAD ONC TREATMENT Reference Point ID [id number] RAD ONC TREATMENT Reference Point Dosage Given to Date 35 Gy RAD ONC TREATMENT Reference Point Session Dosage Given 7 Gy RAD ONC TREATMENT Plan ID #[id number] RAD ONC TREATMENT Plan Fractions Treated to Date 5 RAD ONC TREATMENT Plan Total Fractions Prescribed 5 RAD ONC TREATMENT Plan Total Prescribed Dose 3000 cGy RAD ONC TREATMENT Plan ID #[id number] RAD ONC TREATMENT Plan Fractions Treated to Date 5 RAD ONC TREATMENT Plan Total Fractions Prescribed 5 RAD ONC TREATMENT Plan Total Prescribed Dose 3500 cGy RAD ONC TREATMENT 02/22/2023 2:04 PM CDT Provider Unknown RADIATION ONCOLOGY O RDERABLES RAD ONC TREATMENT * Rad Onc Aria Session Summary (02/21/2023 2:21 PM CDT) Course ID [id number] lum_R RAD ONC TREATMENT Course First Treatment Date 02/14/2023 1:27 PM RAD ONC TREATMENT Reference Point ID [email or web address] RAD ONC TREATMENT Reference Point Dosage Given to Date 24 Gy RAD ONC TREATMENT Reference Point Session Dosage Given 6 Gy RAD ONC TREATMENT Reference Point ID [id number] RAD ONC TREATMENT Reference Point Dosage Given to Date 28 Gy RAD ONC TREATMENT Reference Point Session Dosage Given 7 Gy RAD ONC TREATMENT Plan ID #[id number] RAD ONC TREATMENT Plan Fractions Treated to Date 4 RAD ONC TREATMENT Plan Total Fractions Prescribed 5 RAD ONC TREATMENT Plan Total Prescribed Dose 3000 cGy RAD ONC TREATMENT Plan ID #[id number] RAD ONC TREATMENT Plan Fractions Treated to Date 4 RAD ONC TREATMENT Plan Total Fractions Prescribed 5 RAD ONC TREATMENT Plan Total Prescribed Dose 3500 cGy RAD ONC TREATMENT 02/21/2023 2:21 PM CDT Provider Unknown RADIATION ONCOLOGY O RDERABLES Performing Organization Address [facility] Co de Phone Number RAD ONC TREATMENT * Rad Onc Aria Session Summary (02/19/2023 1:51 PM CDT) Course ID C2:[id number] lum_R RAD ONC TREATMENT Course First Treatment Date 02/14/2023 1:27 PM RAD ONC TREATMENT Reference Point ID [email or web address] RAD ONC TREATMENT Reference Point Dosage Given to Date 18 Gy RAD ONC TREATMENT Reference Point Session Dosage Given 6 Gy RAD ONC TREATMENT Reference Point ID [id number] RAD ONC TREATMENT Reference Point Dosage Given to Date 21 Gy RAD ONC TREATMENT Reference Point Session Dosage Given 7 Gy RAD ONC TREATMENT Plan ID #[id number] RAD ONC TREATMENT Plan Fractions Treated to Date 3 RAD ONC TREATMENT Plan Total Fractions Prescribed 5 RAD ONC TREATMENT Plan Total Prescribed Dose 3000 cGy RAD ONC TREATMENT Plan ID #[id number] RAD ONC TREATMENT Plan Fractions Treated to Date 3 RAD ONC TREATMENT Plan Total Fractions Prescribed 5 RAD ONC TREATMENT Plan Total Prescribed Dose 3500 cGy RAD ONC TREATMENT 02/19/2023 1:51 PM CDT Provider Unknown RADIATION ONCOLOGY O RDERABLES RAD ONC TREATMENT * Rad Onc Aria Session Summary (02/15/2023 1:49 PM CDT) Course ID C2:[id number]+Hi lum_R RAD ONC TREATMENT Course First Treatment Date 02/14/2023 1:27 PM RAD ONC TREATMENT Reference Point ID [id number] RAD ONC TREATMENT Reference Point Dosage Given to Date 12 Gy RAD ONC TREATMENT Reference Point Session Dosage Given 6 Gy RAD ONC TREATMENT Reference Point ID [id number] RAD ONC TREATMENT Reference Point Dosage Given to Date 14 Gy RAD ONC TREATMENT Reference Point Session Dosage Given 7 Gy RAD ONC TREATMENT Plan ID #RtHilum RAD ONC TREATMENT Plan Fractions Treated to Date 2 RAD ONC TREATMENT Plan Total Fractions Prescribed 5 RAD ONC TREATMENT Plan Total Prescribed Dose 3000 cGy RAD ONC TREATMENT Plan ID #LtSCV RAD ONC TREATMENT Plan Fractions Treated to Date 2 RAD ONC TREATMENT Plan Total Fractions Prescribed 5 RAD ONC TREATMENT Plan Total Prescribed Dose 3500 cGy RAD ONC TREATMENT 02/15/2023 1:49 PM CDT Provider Unknown RADIATION ONCOLOGY O RDERABLES Performing Organization Address [facility] Co de Phone Number RAD ONC TREATMENT * Rad Onc Aria Session Summary (02/14/2023 1:54 PM CDT) Course ID [id number]+Hi lum_R RAD ONC TREATMENT Course First Treatment Date 02/14/2023 1:27 PM RAD ONC TREATMENT Reference Point ID [id number] RAD ONC TREATMENT Reference Point Dosage Given to Date 6 Gy RAD ONC TREATMENT Reference Point Session Dosage Given 6 Gy RAD ONC TREATMENT Reference Point ID [id number] RAD ONC TREATMENT Reference Point Dosage Given to Date 7 Gy RAD ONC TREATMENT Reference Point Session Dosage Given 7 Gy RAD ONC TREATMENT Plan ID #LtSCV RAD ONC TREATMENT Plan Fractions Treated to Date 1 RAD ONC TREATMENT Plan Total Fractions Prescribed 5 RAD ONC TREATMENT Plan Total Prescribed Dose 3500 cGy RAD ONC TREATMENT Plan ID #RtHilum RAD ONC TREATMENT Plan Fractions Treated to Date 1 RAD ONC TREATMENT Plan Total Fractions Prescribed 5 RAD ONC TREATMENT Plan Total Prescribed Dose 3000 cGy RAD ONC TREATMENT 02/14/2023 1:54 PM CDT Provider Unknown RADIATION ONCOLOGY O RDERABLES Performing Organization Address City/[facility]/ZIP Co de Phone Number RAD ONC TREATMENT * PET CT SKULL TO MID THIGH (02/02/2023 10:57 AM CDT) Only the most recent of2 resultswithin the time period is included. Anatomical Region Laterality Modality Head, Lower Extremity Positron E mission Tomography (PET) 02/02/2023 10:5 5 AM CDT Impressions 02/02/2023 5:18 PM CDT IMPRESSION: 1.Multiple hypermetabolic left supraclavicular and right hilar lymph nodes likely represents metastasis. 2.Subcutaneous fat stranding throughout the left axilla subcentimeter non-FDG avid lymph nodes. Findings are concerning for partial obstruction of the left subclavian vein due to the left supraclavicular lymphadenopathy. 3.Asymmetric uptake in the left vocal cords compared to right may be secondary to compression of the left recurrent laryngeal nerve from the left supraclavicular lymphadenopathy. Report dictated by Jaswinder Benitez DO (radiology scheduler). > Dictated by Jaswinder Benitez DO (Park Worker Supervisor) 02/02/2023 3:35 PM I, Becky Cesar MD have personally reviewed and interpreted this examination/study. > Interpreting Provider: Becky Cesar MD on 02/02/2023 5:18 PM Narrative 02/02/2023 5:18 PM CDT PROCEDURE: PET CT SKULL TO MID THIGH, DATE/TIME OF EXAM: 02/02/2023 10:57 AM, LOCATION [facility] INDICATION: C78.02: 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 (CMS/HCC) C64.1: Malignant neoplasm of right kidney, except renal pelvis (CMS/HCC) ADDITIONAL CLINICAL INFORMATION: Ordering Provider Reason For Exam: History of RCC. Abnormal left upper mediastinal/infraclavicular mass, possible new malignant lymphadenopathy. Radiology recommended PET/CT to delineate. Rule out metastatic disease. COMPARISON: PET/CT dated 09/21/[address] chest abdomen and pelvis dated 01/23/2023 HISTORY: 63-year-old female with history of metastatic renal cell carcinoma. Most recent CT showed a left supraclavicular lymph node.. Evaluate for subsequent treatment strategy. TECHNIQUE: 8.32 mCi of F-18 FDG by IV in the left hand. PET/CT image acquisition from top of the head to mid thigh after approximately 60 minutes post-injection with the CT being low-dose, non-contrast. No separate report for the CT. CT was used for attenuation correction and anatomic localization. Blood glucose level at the time of injection was 97 mg/dl. Patient's BMI is 32.63 kg/m. FINDINGS: For reference, SUVmax of liver is 3.3, previously 3.5. Head and neck: Normal metabolic uptake in the brain. Asymmetric decreased uptake in the left vocal cords compared to the right. Chest: The lungs are clear with no evidence of pneumothorax or pleural effusion. Multiple new hypermetabolic left supraclavicular lymph nodes, the largest measuring 13 x 13 mm with SUV max of 9.5. Hypermetabolic subcentimeter right hilar lymph node with SUV max of 3.8. Subcutaneous fat stranding throughout the left axilla with multiple subcentimeter non-FDG avid lymph nodes. Abdomen and pelvis: Postoperative changes of a right nephrectomy and right adrenalectomy. The liver, left kidney, left adrenal gland, spleen and pancreas are grossly unremarkable. Small hiatal hernia. Normal FDG activity is seen throughout the bowel. Benign-appearing bilateral inguinal nodes. Musculoskeletal: No abnormal FDG avid lytic or sclerotic lesions are identified. No abnormal radiotracer focus is present. Grade 1 anterolisthesis of L4-L5 with mild hypermetabolic degenerative changes in the left L4-L5 facet joint. Bilateral total hip arthroplasties. Procedure Note Becky Cesar MD - 02/02/2023 PROCEDURE: PET CT SKULL TO MID THIGH, DATE/TIME OF EXAM: 0:57 AM, LOCATION [facility] INDICATION: C78.02: 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 (CMS/HCC) C64.1: Malignant neoplasm of right kidney, except renal pelvis (CMS/HCC) ADDITIONAL CLINICAL INFORMATION: Ordering Provider Reason For Exam: History of RCC. Abnormal left upper mediastinal/infraclavicular mass, possible new malignantlymphadenopathy. Radiology recommended PET/CT to delineate. Rule out metastatic disease. COMPARISON: PET/CT dated 09/21/[address] chest abdomen and pelvis dated 01/23/2023 HISTORY: 63-year-old female with history of metastatic renal cell carcinoma. Most recent CT showed a left supraclavicular lymph node.. Evaluate for subsequent treatment strategy. TECHNIQUE: 8.32 mCi of F-18 FDG by IV in the left hand. PET/CT image acquisition from top of the head to mid thigh after approximately 60 minutes post-injection with the CT being low-dose, non-contrast. No separate report for the CT. CT was used for attenuation correction and anatomic localization. Blood glucose level at the time of injection was97 mg/dl. Patient's BMI is 32.63 kg/m. FINDINGS: For reference, SUVmax of liver is 3.3, previously 3.5. Head and neck: Normal metabolic uptake in the brain. Asymmetric decreased uptake in the left vocal cords compared to the right. Chest: The lungs are clear with no evidence of pneumothorax or pleuraleffusion. Multiple new hypermetabolic left supraclavicular lymph nodes, thelargest measuring 13 x 13 mm with SUV max of 9.5. Hypermetabolic subcentimeter right hilar lymph node with SUV max of 3.8. Subcutaneous fat stranding throughout the left axilla with multiple subcentimeter non-FDG avidlymph nodes. Abdomen and pelvis: Postoperative changes of a right nephrectomy and right adrenalectomy.The liver, left kidney, left adrenal gland, spleen and pancreas are grossly unremarkable. Small hiatal hernia. Normal FDG activity is seenthroughout the bowel. Benign-appearing bilateral inguinal nodes. Musculoskeletal: No abnormal FDG avid lytic or sclerotic lesions are identified. Noabnormal radiotracer focus is present. Grade 1 anterolisthesis of L4-L5 with mild hypermetabolic degenerative changes in the left L4-L5 facet joint. Bilateral total hip arthroplasties. IMPRESSION: 1.Multiple hypermetabolic left supraclavicular and right hilar lymphnodes likely represents metastasis. 2.Subcutaneous fat stranding throughout the left axilla subcentimeter non-FDG avid lymph nodes. Findings are concerning for partialobstruction of the left subclavian vein due to the left supraclavicular lymphadenopathy. 3.Asymmetric uptake in the left vocal cords compared to right may be secondary to compression of the left recurrent laryngeal nerve from the left supraclavicular lymphadenopathy. Report dictated by Jaswinder Benitez DO (radiology scheduler). > Dictated by Jaswinder Benitez DO (Park Worker Supervisor) 02/02/2023 3:35 PM I, Becky Cesar MD have personally reviewed and interpreted this examination/study. > Interpreting Provider: Becky Cesar MD on 02/02/2023 5:18 PM Ronnie Mcqueen MD NM ORDERABLES * GLUCOSE SCREEN - POCT (IP) [facility] (02/02/2023 9:38 AM CDT) Only the most recent of3 resultswithin the time period is included. Glucose WB/POC 97 70 - 115 mg/dL [facility] POCT TESTING Blood BLOOD SPECIMEN / Unknown 02/02/2023 9:38 AM CDT Ronnie Mcqueen MD LAB - POINT OF CARE ORDERABLES [facility] POCT TESTING [address] [place] [address], [facility] [phone] * (ABNORMAL) UDP GLUCURONOSYLTRANSFERASE 1A1 (06/27/2022 10:36 AM CDT) UGT1A1 Genotyping Allele 1 (TA)7 or *28(A) 07/04/2022 9:41 AM CDT [facility] ([facility]) UGT1A1 Genotyping Specimen Whole Blood 07/04/2022 9:41 AM CDT [facility] ([facility]) UGT1A1 Genotyping Allele 2 (TA)7 or *28(A) 07/04/2022 9:41 AM CDT [facility] ([facility]) Interpretation UGT1A1 Genotyping See Note 07/04/2022 9:41 AM CDT [facility] ([facility]) Comment: Indications for ordering: - Determine sensitivity to irinotecan or related compounds. - Confirm a diagnosis of Gilbert Syndrome. Homozygous UGT1A1 (TA)7: Two copies of the UGT1A1 *28 (TA)7 variant were detected. This is associated with decreased UGT1A1 enzyme and increased risk for irinotecan toxicity, namely, neutropenia and diarrhea. Dose reduction is recommended. This genotype has been reported to be associated with Gilbert's syndrome (benign familial hyperbilirubinemia). This result has been reviewed and approved by Jayshree Slaughter M.D., Ph.D. BACKGROUND INFORMATION: UDP Glucuronosyltransferase 1A1 (UGT1A1) Genotyping CHARACTERISTICS: UGT1A1 is responsible for the clearance of drugs (e.g., irinotecan) and endobiotic compounds (e.g., bilirubin). Irinotecan's major active and toxic metabolite (SN-38) is inactivated by the UGT1A1 enzyme and then eliminated via the bile. UGT1A1 gene mutations cause accumulation of SN-38, which may lead to irinotecan-related toxicities (neutropenia, diarrhea). CAUSE: Variations in TA repeat number in the TATAAA element of the 5'[id number]-ldepwbon affects finance business manager efficiency. The common number of repeats is six [(TA)6, *1 allele], while seven repeats [(TA)7, *28 allele] is associated with reduced finance business manager activity. Homozygosity for the (TA)7 allele is also associated with Gilbert Syndrome (benign familial hyperbilirubinemia). ALLELES TESTED: *36 allele, (TA)5; *1 allele, (TA)6; *28 alelle, (TA)7 and *37 allele, (TA)8. CLINICAL SENSTIVITY/SPECIFICITY: Risk of irinotecan toxicity by genotype (Br J Cancer (2004) 91:678-82). 6/6 (*1/*1): diarrhea 17 percent; neutropenia 15 percent 6/7 (*1/*28): diarrhea 33 percent; neutropenia 27 percent 7/7 (*28/*28): diarrhea 70 percent; neutropenia 40 percent ALLELIC FREQUENCY: *1(TA)6: Caucasians 0.61, Asians 0.84, Americans 0.47 *28(TA)7: Caucasians 0.39, Asians 0.16, Americans 0.43 METHODOLOGY: Polymerase chain reaction followed by size analysis using capillary electrophoresis. ANALYTICAL SENSTIVITY: Greater than 99 percent. LIMITATIONS: Variations in the UGT1A1 gene, other than those targeted, will not be detected. Clinical significance of the rare *36, (TA)5 and *37, (TA)8 alleles in predicting irinotecan toxicities is not well established. Genetic and non-genetic factors other than UGT1A1, may contribute to irinotecan toxicity and efficacy. Diagnostic errors can occur due to rare sequence variations. This test was developed and its performance characteristics determined by [facility]. It has not been cleared or approved by the US Food and Drug Administration. This test was performed in a CLIA certified laboratory and is intended for clinical purposes. Counseling and informed consent are recommended for genetic testing. Consent forms are available online. Performed by [facility], [address] [place] [address] [email or web address], Tucker Hernandez MD, PHD, Lab. Director Blood BLOOD SPECIMEN / Unknown Venipuncture / Unknown 06/27/2022 10:36 AM CDT 06/27/2022 10:36 AM CDT Arlin Milian ONCOLOGY PHYSICIAN ASSISTANT-VALVE REPAIRER LAB - CHEMIS TRY ORDERABLES [facility] ([facility]) [address] * (ABNORMAL) BASIC METABOLIC PANEL (CALCIUM TOTAL) (04/05/2022 12:11 PM CDT) Only the most recent of44 resultswithin the time period is included. Glucose 125(H) 65 - 99 mg/dL [facility] INSURANCE BILL BUN 16 8 - 27 mg/dL [facility] INSURANCE BILL Creatinine 0.93 0.57 - 1.00 mg/dL [facility] INSURANCE BILL eGFR by CKD-EPI 69 >59 mL/min/1.7 3 [facility] INSURANCE BILL BUN/Creatinine Ratio 17 12 - 28 [facility] INSURANCE BILL Sodium 126(L) 134 - 144 mmol/L [facility] INSURANCE BILL Potassium 4.0 3.5 - 5.2 mmol/L [facility] INSURANCE BILL Chloride 85(L) 96 - 106 mmol/L [facility] INSURANCE BILL CO2 25 20 - 29 mmol/L [facility] INSURANCE BILL Calcium 9.8 8.7 - 10.3 mg/dL [facility] INSURANCE BILL Blood BLOOD SPECIMEN / Unknown 04/05/2022 12:11 PM CDT 04/05/2022 Narrative Resulting Agency Comment Lab Testing performed at: [facility] [address] [facility] [phone] Wai Tse MD LAB - CHEMISTRY HELENA LANDA [facility] INSURANCE BILL [address] [place] [address] * US ABDOMEN DOPPLER ONLY LTD (03/29/2022 10:46 AM CDT) Anatomical Region Laterality Modality Abdomen Ultrasound 03/29/2022 10:1 3 AM CDT Impressions 03/29/2022 11:22 AM CDT FINDINGS/IMPRESSION: There is no evidence of thrombus or filling defect within the inferior vena cava. The IVC is patent with adequate flow throughout its visualized course. Dictated by Paramjit Suarez MD (radiology scheduler). Dr. Fannie Blackman M.D. have personally reviewed and interpreted this examination/study. This report was electronically signed by Fannie LEHMAN M.D. on 03/29/2022 11:22 AM . Narrative 03/29/2022 11:22 AM CDT EXAMINATION: Limited retroperitoneal sonogram HISTORY: R93.89: Filling defect on imaging study COMPARISON: CT chest abdomen pelvis 03/21/2022 Procedure Note Tracy Lehman MD - 03/29/2022 EXAMINATION: Limited retroperitoneal sonogram HISTORY: R93.89: Filling defect on imaging study COMPARISON: CT chest abdomen pelvis 03/21/2022 FINDINGS/IMPRESSION: There is no evidence of thrombus or filling defect within the inferior vena cava. The IVC is patent with adequate flow throughout itsvisualized course. Dictated by Paramjit Suarez MD (radiology scheduler). Dr. Fannie Blackman M.D. have personally reviewed and interpretedthis examination/study. This report was electronically signed by Fannie LEHMAN M.D. on 03/29/2022 11:22 AM . Ronnie Mcqueen MD US ORDERABLES * (ABNORMAL) PTH INTACT W/O CALCIUM (09/07/2021 10:24 AM CDT) PTH Intact 101.5(H) 8.0 - 77.0 pg/mL 09/07/2021 11:21 AM CDT [facility] Blood BLOOD SPECIMEN / Unknown Venipuncture / Unknown 09/07/2021 10:24 AM CDT 09/07/2021 10:49 AM CDT Wai Tse MD LAB - CHEMISTRY ORDE CORDELL [facility] [place] [id number] [place] [phone], [facility] [phone] * SMOOTH MUSCLE ANTIBODY W REFLEX TITER (09/07/2021 10:24 AM CDT) Only the most recent of2 resultswithin the time period is included. [facility] F-Actin Antibody IgG 5 0 - 19 Units 09/09/2021 7:03 AM CDT [facility] ([facility]) Comment: If F-Actin (Smooth Muscle) Antibody, IgG is negative, the Smooth Muscle Antibody titer by IFA is not performed. REFERENCE INTERVAL: F-Actin (Smooth Muscle) Antibody, IgG by ERNESTO 19 Units or less ....... Negative 20 - 30 Units .......... Weak Positive-Suggest repeat testing in two to three weeks with fresh specimen. 31 Units or greater..... Positive-Suggestive of autoimmune hepatitis type 1 or chronic active hepatitis. F-actin IgG antibodies have been shown to have increased sensitivity for autoimmune hepatitis (AIH) but lower specificity than smooth muscle antibodies (SMA). F-actin IgG antibodies can also be seen in SMA-negative disease controls (non-AIH), especially in patients with primary biliary cirrhosis and chronic hepatitis C infections. Some patients with AIH may be SMA-positive but negative for F-actin IgG. Consider testing for SMA by IFA if suspicion for AIH is strong. Performed By: [facility] [address] [place] [address] Human Service Worker: Vicky Kruger MD Blood BLOOD SPECIMEN / Unknown Venipuncture / Unknown 09/07/2021 10:24 AM CDT 09/07/2021 10:45 AM CDT Wai Tse MD LAB - SEROLOGY ORDER HARJINDER [facility] ([facility]) [address] [place] [address], [facility] * PTH RELATED PEPTIDE (09/07/2021 10:24 AM CDT) [facility] PTH Related Peptide 2.4 0.0 - 3.4 pmol/L 09/16/2021 5:38 AM CDT [facility] ([facility]) Comment: INTERPRETIVE INFORMATION: Parathyroid Hormone-Related Peptide This test was developed and its performance characteristics determined by [facility]. It has not been cleared or approved by the US Food and Drug Administration. This test was performed in a CLIA certified laboratory and is intended for clinical purposes. Performed By: [facility] [address] [place] [address] Human Service Worker: Vicky Kruger MD Blood BLOOD SPECIMEN / Unknown Venipuncture / Unknown 09/07/2021 10:24 AM CDT 09/07/2021 10:46 AM CDT Wai Tse MD LAB - CHEMISTRY ORDE [facility]LL [facility]) [address] [place] [address], [facility] * HEMOGLOBIN A1C (09/07/2021 10:24 AM CDT) [facility] Hemoglobin A1c 5.3 4.4 - 6.3 % 09/07/2021 3:52 PM CDT [facility] Estimated Average Glucose 105 mg/dL 09/07/2021 3:52 PM CDT [facility] Comment: HbA1c Interpretation: Treatment target values recommended by ADA and other clinical organizations should be used to evaluate metabolic control in patients. Treatment Target Values: Normal : < 5.7% Pre-diabetes: 5.7-6.4% Diabetes: Equal to or greater than 6.5% Reference: [place] [employer] Standards of Care in Diabetes -2014 In patients 70 years and older consider HbA1c target range of 7.0-7.5% Reference: Diabetes Mellitus in Older People: Position Statement on behalf of the International Association of Gerontology and Geriatrics (IAGG), the Diabetes Working Democrat for Older People (EDWPOP), and the International Task Force of Experts in Diabetes. Rogelio Santana et al. J [employer] [place] [employer]. 2012 Test results diagnostic of diabetes should be repeated for confirmation. The Sebia Capillary 2 assay for the measurement of HbA1c is a National Glycohemoglobin Standardization Program (NGSP)certified method. Blood BLOOD SPECIMEN / Unknown Venipuncture / Unknown 09/07/2021 10:24 AM CDT 09/07/2021 10:49 AM CDT Wai Tse MD LAB - CHEMISTRY HELENA LANDA Performing Organization Address City/[facility]/ZIP Co de Phone Number [place] [id number] [place] [phone] [phone] * VITAMIN D 1,25 DIHYDROXY (09/07/2021 10:24 AM CDT) Pathologist [facility] Vitamin D, 1,25 Dihydroxy 44.1 19.9 - 79.3 pg/mL 09/09/2021 1:53 PM CDT [facility] ([facility]) Comment: INTERPRETIVE INFORMATION: Vitamin D, 1,25-Dihydroxy This test is primarily indicated during patient evaluation for hypercalcemia and renal failure. A normal result does not rule out Vitamin D deficiency. The recommended test for diagnosing Vitamin D deficiency is Vitamin D 25-hydroxy. Performed By: [facility] [address] [place] [address] Human Service Worker: Vicky Kruger MD Blood BLOOD SPECIMEN / Unknown Venipuncture / Unknown 09/07/2021 10:24 AM CDT 09/07/2021 10:45 AM CDT Wai Tse MD LAB - CHEMISTRY HELENA LANDA Performing Organization Address [facility] Co de Phone Number [facility]) [address] * Rad Onc Aria Session Summary (07/21/2021 2:58 PM CDT) Course ID C1:Mediast inum RAD ONC TREATMENT Course First Treatment Date 07/12/2021 10:12 AM RAD ONC TREATMENT Reference Point ID PTV RAD ONC TREATMENT Reference Point Dosage Given to Date 30 Gy RAD ONC TREATMENT Reference Point Session Dosage Given 6 Gy RAD ONC TREATMENT Plan ID #Mediastin um1 RAD ONC TREATMENT Plan Fractions Treated to Date 5 RAD ONC TREATMENT Plan Total Fractions Prescribed 5 RAD ONC TREATMENT Plan Total Prescribed Dose 3000 cGy RAD ONC TREATMENT 07/21/2021 2:58 PM CDT Provider Unknown RADIATION ONCOLOGY O RDERABLES RAD ONC TREATMENT * Rad Onc Aria Session Summary (07/19/2021 1:28 PM CDT) Course ID C1:Mediast inum RAD ONC TREATMENT Course First Treatment Date 07/12/2021 10:12 AM RAD ONC TREATMENT Reference Point ID PTV RAD ONC TREATMENT Reference Point Dosage Given to Date 24 Gy RAD ONC TREATMENT Reference Point Session Dosage Given 6 Gy RAD ONC TREATMENT Plan ID #Mediastin um1 RAD ONC TREATMENT Plan Fractions Treated to Date 4 RAD ONC TREATMENT Plan Total Fractions Prescribed 5 RAD ONC TREATMENT Plan Total Prescribed Dose 3000 cGy RAD ONC TREATMENT 07/19/2021 1:28 PM CDT Provider Unknown RADIATION ONCOLOGY O RDERABLES Performing Organization Address [facility] Co de Phone Number RAD ONC TREATMENT * Rad Onc Aria Session Summary (07/15/2021 8:02 AM CDT) Course ID C1:Mediast inum RAD ONC TREATMENT Course First Treatment Date 07/12/2021 10:12 AM RAD ONC TREATMENT Reference Point ID PTV RAD ONC TREATMENT Reference Point Dosage Given to Date 18 Gy RAD ONC TREATMENT Reference Point Session Dosage Given 6 Gy RAD ONC TREATMENT Plan ID #Mediastin um1 RAD ONC TREATMENT Plan Fractions Treated to Date 3 RAD ONC TREATMENT Plan Total Fractions Prescribed 5 RAD ONC TREATMENT Plan Total Prescribed Dose 3000 cGy RAD ONC TREATMENT 07/15/2021 8:02 AM CDT Provider Unknown RADIATION ONCOLOGY O RDERABLES RAD ONC TREATMENT * Rad Onc Aria Session Summary (07/14/2021 10:07 AM CDT) Course ID C1:Mediast inum RAD ONC TREATMENT Course First Treatment Date 07/12/2021 10:12 AM RAD ONC TREATMENT Reference Point ID PTV RAD ONC TREATMENT Reference Point Dosage Given to Date 12 Gy RAD ONC TREATMENT Reference Point Session Dosage Given 6 Gy RAD ONC TREATMENT Plan ID #Mediastin um1 RAD ONC TREATMENT Plan Fractions Treated to Date 2 RAD ONC TREATMENT Plan Total Fractions Prescribed 5 RAD ONC TREATMENT Plan Total Prescribed Dose 3000 cGy RAD ONC TREATMENT 07/14/2021 10:0 7 AM CDT Provider Unknown RADIATION ONCOLOGY O RDERABLES RAD ONC TREATMENT * Rad Onc Aria Session Summary (07/12/2021 10:22 AM CDT) Course ID C1:Mediast inum RAD ONC TREATMENT Course First Treatment Date 07/12/2021 10:12 AM RAD ONC TREATMENT Reference Point ID PTV RAD ONC TREATMENT Reference Point Dosage Given to Date 6 Gy RAD ONC TREATMENT Reference Point Session Dosage Given 6 Gy RAD ONC TREATMENT Plan ID #Mediastin um1 RAD ONC TREATMENT Plan Fractions Treated to Date 1 RAD ONC TREATMENT Plan Total Fractions Prescribed 5 RAD ONC TREATMENT Plan Total Prescribed Dose 3000 cGy RAD ONC TREATMENT 07/12/2021 10:2 2 AM CDT Provider Unknown RADIATION ONCOLOGY O RDERABLES Performing Organization Address City/State/[facility] Co de Phone Number RAD ONC TREATMENT * CT ABDOMEN MULTI PHASE W CONT (03/28/2021 8:55 AM CDT) Anatomical Region Laterality Modality Abdomen Computed Tomogra phy 03/28/2021 8:57 AM CDT Impressions 03/28/2021 11:34 AM CDT Impression: 1. Numerous hypoattenuating lesions throughout the liver seen on arterial phase but no significant change on subsequent phases, likely representing hepatic cysts. No CT evidence of metastatic liver lesion. 2. Slight increase in partial visualized opacities in the lung bases, with similar overall morphology. Given the persistent morphology, inflammatory disease/developing fibrosis is the primary consideration. Report drafted by Justina Clemens (resident) I, Dr. WENDY LEONARD have personally reviewed and interpreted this examination/study. This report was electronically signed by WENDY LEONARD on 03/28/2021 11:34 AM . Narrative 03/28/2021 11:34 AM CDT Procedure Information DATE: 03/28/2021 EXAMINATION: Computed tomography (CT) of the abdomen with contrast. TECHNIQUE: CT of the abdomen was performed following the uneventful administration of 150 mL of Isovue 370 intravenous contrast according to a three-phase liver protocol. Multi-planar reconstructions and reformatted MIP images were produced. Clinical Information HISTORY: 61-year-old female with history of right RCC status post right nephrectomy, now with elevated liver enzymes. COMPARISON: No similar prior study was found in patient's chart at time of dictation. CT chest abdomen and pelvis with contrast from 02/22/2021 was reviewed. Findings Lower Chest: Slight increase in the bibasilar opacities 02/22/2021. There is subtle nodular opacity in the subpleural region of the right lower base (series 7 image 13) measuring 1.1 x 0.8 cm. The known granuloma in the left lower lobe is again identified (series 7 image 8). Hepatobiliary system Liver morphology: The liver is normal in size and has normal surface and contours. Varices: None Spleen: Normal. Ascites: None. Focal liver observations There are multiple hypodensities scattered throughout both hepatic lobes seen on the arterial phase with no significant change on subsequent phases. The largest is identified in hepatic segment 6 (series 6 image 25) measuring 1.9 x 1.5 cm. No hyperattenuating observations are seen in the liver during the arterial phase. Hepatic vasculature Portal and hepatic veins: Portal vein is borderline normal in diameter measuring 1.6 cm. Arterial anatomy: Patent arteries. Aorta: The abdominal aorta appears tortuous with a few atherosclerotic plaques identified. Gallbladder and bile ducts Gallbladder: The gallbladder is normal without evidence of wall thickening, pericholecystic fluid, or gallstones. Bile ducts: The intrahepatic and extrahepatic bile ducts are nondilated. Retroperitoneum Pancreas: Normal. Adrenals: The right adrenal gland is obscured due to crowding of anatomy and likely thickening of the diaphragmatic nelson in the area. Mild thickening along the left adrenal gland is unchanged. Kidneys: The right kidney is surgically absent. There is a slight diffuse enlargement of the left kidney which may be compensatory to the right nephrectomy Lymph nodes: Multiple subcentimeter lymph nodes identified in the periportal, pericaval and periaortic regions. Neither of these lymph nodes meet criteria for lymphadenopathy. For instance, a 4 mm right pericaval lymph node (series 6 image 36). Gastrointestinal: Imaged bowel and mesentery are normal. Colonic diverticulosis, partially visualized. Small hiatal hernia and small fat-containing umbilical hernia are identified. Bones: Mild L5 vertebral retrolisthesis with severe degenerative changes of L5-S1. The rest of the visible osseous structures are intact. Procedure Note Wendy Leonard MD - 03/28/2021 Procedure Information DATE: 03/28/2021 EXAMINATION: Computed tomography (CT) of the abdomen with contrast. TECHNIQUE: CT of the abdomen was performed following the uneventful administrationof 150 mL of Isovue 370 intravenous contrast according to a three-phaseliver protocol. Multi-planar reconstructions and reformatted MIP images were produced. Clinical Information HISTORY: 61-year-old female with history of right RCC status post right nephrectomy, now with elevated liver enzymes. COMPARISON: No similar prior study was found in patient's chart at timeof dictation. CT chest abdomen and pelvis with contrast from 02/22/2021 was reviewed. Findings Lower Chest: Slight increase in the bibasilar opacities 02/22/2021. There is subtle nodular opacity in the subpleural region of the right lower base (series7 image 13) measuring 1.1 x 0.8 cm. The known granuloma in the left lower lobe is again identified (series 7 image 8). Hepatobiliary system Liver morphology: The liver is normal in size and has normal surface and contours. Varices: None Spleen: Normal. Ascites: None. Focal liver observations There are multiple hypodensities scattered throughout both hepatic lobes seen on the arterial phase with no significant change on subsequent phases. The largest is identified in hepatic segment 6 (series 6 image25) measuring 1.9 x 1.5 cm. No hyperattenuating observations are seen in the liver during the arterial phase. Hepatic vasculature Portal and hepatic veins: Portal vein is borderline normal in diameter measuring 1.6 cm. Arterial anatomy: Patent arteries. Aorta: The abdominal aorta appears tortuous with a few atherosclerotic plaques identified. Gallbladder and bile ducts Gallbladder: The gallbladder is normal without evidence of wall thickening, pericholecystic fluid, or gallstones. Bile ducts: The intrahepatic and extrahepatic bile ducts are nondilated. Retroperitoneum Pancreas: Normal. Adrenals: The right adrenal gland is obscured due to crowding of anatomy and likely thickening of the diaphragmatic nelson in the area. Mild thickening along the left adrenal gland is unchanged. Kidneys: The right kidney is surgically absent. There is a slightdiffuse enlargement of the left kidney which may be compensatory to the right nephrectomy Lymph nodes: Multiple subcentimeter lymph nodes identified in the periportal, pericaval and periaortic regions. Neither of these lymphnodes meet criteria for lymphadenopathy. For instance, a 4 mm right pericaval lymph node (series 6 image 36). Gastrointestinal: Imaged bowel and mesentery are normal. Colonic diverticulosis, partially visualized. Small hiatal hernia and small fat-containing umbilicalhernia are identified. Bones: Mild L5 vertebral retrolisthesis with severe degenerative changes of L5-S1. The rest of the visible osseous structures are intact. Impression: 1. Numerous hypoattenuating lesions throughout the liver seen onarterial phase but no significant change on subsequent phases, likelyrepresenting hepatic cysts. No CT evidence of metastatic liver lesion. 2. Slight increase in partial visualized opacities in the lung bases,with similar overall morphology. Given the persistent morphology,inflammatory disease/developing fibrosis is the primary consideration. Report drafted by Justina Clemens (resident) I, Dr. WENDY LEONARD have personally reviewed and interpreted this examination/study. This report was electronically signed by WENDY LEONARD on 03/28/2021 11:34 AM . Jessica Padron ONCOLOGY PHYSICIAN ASSISTANT-HEALTH EDUCATOR CT ORDERABLE S * PT-INR [facility] (03/17/2021 10:19 AM CDT) Only the most recent of44 resultswithin the time period is included. PT 12.3 12.1 - 14.8 Seconds 03/17/2021 10:40 AM CDT [facility] INR 0.9 See Comment 03/17/2021 10:40 AM T [facility] Comment:The suggested therap eutic range for standard coumadin (warfarin) therapy is an INR of 2.0-3.0. For high-risk patients (Mechanical Mitral Valve Prosthesis, etc.), the suggested prophylactic therapeutic range is an INR of 2.5-3.5. Blood BLOOD SPECIMEN / Unknown Lab Venipuncture / Unknown 03/17/2021 10:19 AM CDT 03/17/2021 10:31 AM CDT Jessica Padron ONCOLOGY PHYSICIAN ASSISTANT-HEALTH EDUCATOR LAB - COAGUL ATION ORDERABLES [place] [phone], [facility] [phone] * MITOCHONDRIAL ANTIBODY SCREEN (03/17/2021 10:19 AM CDT) Mitochondrial M2 Antibody 5.5 0.0 - 24.9 Units 03/19/2021 4:49 PM CDT [facility] ([facility]) Comment: REFERENCE INTERVAL: Mitochondrial (M2) Antibody, IgG 20.0 Units or less ......... Negative 20.1 - 24.9 Units........... Equivocal 25.0 Units or greater....... Positive Anti-mitochondrial antibodies (AMA) are thought to be present in 90-95% of patients with primary biliary cholangitis (PBC). However, the frequency of detected antibodies may be cohort or assay dependent, as lower sensitivities have been reported. Not all PBC patients are positive for AMA; some patients may be positive for SP100 and/or GP210 antibodies. A negative result does not rule out PBC. Performed By: [facility] [address] [place] [address] Human Service Worker: Vicky Kruger MD Blood BLOOD SPECIMEN / Unknown Lab Venipuncture / Unknown 03/17/2021 10:19 AM CDT 03/17/2021 10:35 AM CDT Jessica Padron APRN-HEALTH EDUCATOR LAB - CHEMIS TRY ORDERABLES Performing Organization Address City/[facility]/ZIP Co de Phone Number [facility]) [address] * [id number] BLOOD PHENOTYPING PANEL (03/17/2021 10:19 AM CDT) Vpfxl-7-Hlxxhihcdr n Phenotype M1M1 03/21/2021 8:58 AM CDT [facility] ([facility]) Comment: The patient appears to have a normal phenotype. All M alleles (including subtypes M1, M2, and M3) produce normal serum concentrations of fpfyn-9-wkegmgwf inhibitor and are not associated with clinical disease. Caution in interpretation is advised if the patient has been transfused within the previous 21 days. Performed By: [facility] [address] [place] [address] Human Service Worker: Vicky Kruger MD Vfxzi-5-Waijfasoev n 136 90 - 200 mg/dL 03/21/2021 8:58 AM CDT [facility] ([facility]) Comment:To convert to umol/L , multiply mg/dL by 0.185 Blood BLOOD SPECIMEN / Unknown Lab Venipuncture / Unknown 03/17/2021 10:19 AM CDT 03/17/2021 10:35 AM CDT Jessica Padron ONCOLOGY PHYSICIAN ASSISTANT-HEALTH EDUCATOR LAB - CHEMIS TRY ORDERABLES [facility] ([facility]) [address] [place] [address], [facility] * HEPATITIS C RNA QUANTITATIVE (03/17/2021 10:19 AM CDT) [facility] Hepatitis C RNA PCR, Interp Not detected Not detected 03/21/2021 3:48 PM CDT [facility] Blood BLOOD SPECIMEN / Unknown Lab Venipuncture / Unknown 03/17/2021 10:19 AM CDT 03/17/2021 10:35 AM CDT Narrative [facility] - 03/21/2021 3:48 PM CDT The Hepatitis C viral (HCV) RNA analysis utilized a serum sample, real-time reverse finance business manager PCR, and is reported as Not Detected, [...] the isolation of HCV RNA with reverse finance business manager of genomic HCV RNA followed by real-time PCR in the presence of an unrelated RNA internal control. The internal control ensures that RNA is isolated, and that no general significant inhibitors of the RT-PCR process are present. The analysis was performed using a U.S. FDA approved test methodology ([employer] Real Time HCV). Jessica Padron ONCOLOGY PHYSICIAN ASSISTANT-HEALTH EDUCATOR LAB - CHEMIS TRY ORDERABLES [facility] [address] [place], [place] [address] [phone] * CHERYL BLOOD SCREEN W/REFLEX TITER (03/17/2021 10:19 AM CDT) CHERYL IgG None Detected None Detected 03/19/2021 3:27 AM CDT [facility] ([facility]) Comment: If suspicion of connective tissue disease is strong and CHERYL EIA is negative, consider testing for CHERYL by IFA ([id number]). INTERPRETIVE INFORMATION: Anti-Nuclear Antibodies (CHERYL), IgG by ERNESTO Antinuclear Antibodies (CHERYL), IgG by ERNESTO: CHERYL specimens are screened using enzyme-linked immunosorbent assay (ERNESTO) methodology. All ERNESTO results reported as Detected are further tested by indirect fluorescent assay (IFA) using HEp-2 substrate with an IgG-specific conjugate. The CHERYL ERNESTO screen is designed to detect antibodies against dsDNA, histones, SS-A (Ro), SS-B (La), Richey, Richey/CORE SHAPER, Scl-70, More-1, centromeric proteins, other antigens extracted from the HEp-2 cell nucleus. CHERYL ERNESTO assays have been reported to have lower sensitivities than CHERYL IFA for systemic autoimmune rheumatic diseases (SARD). Negative results do not necessarily rule out SARD. Performed By: [facility] [address] [place] [address] Human Service Worker: Vicky Kruger MD Blood BLOOD SPECIMEN / Unknown Lab Venipuncture / Unknown 03/17/2021 10:19 AM CDT 03/17/2021 10:35 AM CDT Jessica Padron ONCOLOGY PHYSICIAN ASSISTANT-HEALTH EDUCATOR LAB - CHEMIS TRY ORDERABLES [facility] ([facility]) [address] [place] [phone] * CERULOPLASMIN (03/17/2021 10:19 AM CDT) Ceruloplasmin 32 20 - 60 mg/dL 03/17/2021 11:06 AM CDT [facility] Blood BLOOD SPECIMEN / Unknown Lab Venipuncture / Unknown 03/17/2021 10:19 AM CDT 03/17/2021 10:35 AM CDT Jessica Padron ONCOLOGY PHYSICIAN ASSISTANT-HEALTH EDUCATOR LAB - CHEMIS TRY ORDERABLES [address] [address], [facility] [phone] * RMWKY-3-OLGQIAKVIVD BLOOD (03/17/2021 10:19 AM CDT) Dburn-6-Mrpfyd ypsin 148 90 - 200 mg/dL 03/17/2021 11:06 AM CDT [facility] Blood BLOOD SPECIMEN / Unknown Lab Venipuncture / Unknown 03/17/2021 10:19 AM CDT 03/17/2021 10:35 AM CDT Jessica Padron ONCOLOGY PHYSICIAN ASSISTANT-HEALTH EDUCATOR LAB - CHEMIS TRY ORDERABLES Performing Organization Address City/[facility]/ZIP Co de Phone Number [address] [address], [place] [phone] * HEPATITIS B SURFACE ANTIGEN W RFLX CONFIRMATION (03/17/2021 10:19 AM CDT) Hepatitis B Virus Surface Antigen Non-reacti ve Non-reacti ve 03/17/2021 11:22 AM CDT [facility] Blood BLOOD SPECIMEN / Unknown Lab Venipuncture / Unknown 03/17/2021 10:19 AM CDT 03/17/2021 10:35 AM CDT Jessica Padron ONCOLOGY PHYSICIAN ASSISTANT-HEALTH EDUCATOR LAB - CHEMIS TRY ORDERABLES [facility] [address] [place] [address], [facility] [phone] * (ABNORMAL) HEPATIC FUNCTION PANEL (03/02/2021 9:16 AM CDT) Only the most recent of41 resultswithin the time period is included. Protein Total 6.9 6.0 - 8.3 g/dL 021 9:51 AM [facility] Albumin 4.1 3.4 - 5.0 g/dL 03/02/2021 9:51 AM [facility] Bilirubin Total 2.2(H) 0.2 - 1.2 mg/dL 02/11 9:51 AM [facility] Bilirubin Conjugated 0.7(H) 0.1 - 0.5 mg/dL 03/02/2021 9:51 AM [facility] Bilirubin Unconjugated 1.5 Unconjugated Bilirubin is a calculated value: Reference ranges have not been established. mg/dL 03/02/2021 9:51 AM [facility] Alkaline Phosphatase 61 40 - 150 Units/L 03/02/2021 9:51 AM [facility] ALT 101(H) 0 - 55 Units/L 03/02/2021 9:51 AM [facility] AST 75(H) 5 - 34 Units/L 03/02/2021 9:51 AM [facility] Albumin/Globulin Ratio 1.5 1.1 - 2.3 03/02/2021 9:51 AM [facility] Blood BLOOD SPECIMEN / Unknown Lab Venipuncture / Unknown 03/02/2021 9:16 AM CDT 03/02/2021 9:22 AM CDT Wai Tse MD LAB - CHEMISTRY HELENA LANDA [facility] [address] [place] [address], [facility] [phone] * (ABNORMAL) TSH (03/02/2021 9:16 AM CDT) Only the most recent of20 resultswithin the time period is included. TSH 4.990(H) 0.350 - 4.940 uIU/mL 03/02/2021 10:05 AM CDT [facility] Blood BLOOD SPECIMEN / Unknown Lab Venipuncture / Unknown 03/02/2021 9:16 AM CDT 03/02/2021 9:22 AM CDT Wai Tse MD LAB - CHEMISTRY HELENA LANDA [address] [address], [facility] [phone] * T4 FREE (03/02/2021 9:16 AM CDT) Only the most recent of13 resultswithin the time period is included. T4 Free 1.1 0.7 - 1.5 ng/dL 03/02/2021 10:37 AM CDT [facility] Blood BLOOD SPECIMEN / Unknown Lab Venipuncture / Unknown 03/02/2021 9:16 AM CDT 03/02/2021 9:22 AM CDT Wai Tse MD LAB - CHEMISTRY HELENA LANDA Performing Organization Address [facility] Co de Phone Number [address] [address], [place] [phone] * (ABNORMAL) BILIRUBIN TOTAL BLOOD (11/10/2020 1:17 PM SALES OUTFITTER) Only the most recent of2 resultswithin the time period is included. Bilirubin Total 1.6(H) 0.2 - 1.2 mg/dL 11/10/2020 2:20 PM SALES OUTFITTER [facility] Blood BLOOD SPECIMEN / Unknown Venipuncture / Unknown 11/10/2020 1:17 PM SALES OUTFITTER 11/10/2020 1:54 PM SALES OUTFITTER Wai Tse MD LAB - CHEMISTRY HELENA LANDA Performing Organization Address City/[facility]/ZIP Co de Phone Number [address] [address] [phone] * CORTISOL BLOOD AM (10/21/2020 8:01 AM SALES OUTFITTER) Cortisol AM 16.8 6.2 - 19.4 ug/dL [facility] INSURANCE BILL Comment:FASTING Blood BLOOD SPECIMEN / Unknown 10/21/2020 8:01 AM SALES OUTFITTER 10/21/2020 Narrative Resulting Agency Comment Lab Testing performed at: [facility] [phone] Wai Tse MD LAB - CHEMISTRY HELENA LANDA [facility] INSURANCE BILL [address] [place] [address] * (ABNORMAL) T4+TSH REFLEX T3 (10/18/2020 8:55 AM SALES OUTFITTER) TSH 4.730(H) 0.450 - 4.500 uIU/mL [facility] INSURANCE BILL T4 Total 7.2 4.5 - 12.0 ug/dL [facility] INSURANCE BILL Comment:FASTING Blood BLOOD SPECIMEN / Unknown 10/18/2020 8:55 AM SALES OUTFITTER 10/18/2020 Narrative Resulting Agency Comment [facility] [place] [address] [phone] Wai Tse MD LAB - CHEMISTRY HELENA LANDA Performing Organization Address City/[facility]/ZIP Co de Phone Number [facility] INSURANCE BILL [address] [place] [address] * CT GUIDED NEEDLE BIOPSY MUSCLE OR SOFT TIS PERC () (05/27/2020 12:14 PM CDT) Only the most recent of2 resultswithin the time period is included. Anatomical Region Laterality Modality Abdomen X-Ray Angiograph y 05/27/2020 12:4 8 PM CDT Impressions 05/27/2020 12:52 PM CDT IMPRESSION: Successful ultrasound-guided core needle biopsy of left supraclavicular lymph node as described. This report was electronically signed by ROCK SMITH on 05/27/2020 12:52 PM . Narrative 05/27/2020 12:52 PM CDT Procedure: Ultrasound-guided core needle biopsy of left supraclavicular lymphadenopathy. Preprocedure diagnosis: Renal cell carcinoma. PET positive left supraclavicular lymph node. Postprocedure diagnosis: Same. Attending: Rock Stringer M.D. Anesthesia: Local, 1 percent lidocaine. Conscious sedation: None. Consent: The procedure was explained to the patient including benefits, risks and alternatives and informed consent was obtained. Procedure details: Patient was brought to interventional radiology suite and placed on table supine. [place] thymol protocol performed. Real-time grayscale and color Doppler images of the left supraclavicular region were acquired. A hypoechoic enlarged lymph node was identified correlating well with previous findings described on latest PET/CT. Puncture sites selected. The left supraclavicular region was prepped and draped in the usual aseptic fashion justification of the skin soft tissues with 1 percent lidocaine, a 17-gauge guide needle was advanced into the targeted lesion under direct ultrasound guidance. Using a 18-gauge biopsy gun and a coaxial manner 3 passes were made into the lesion. Cores of tissue obtained were placed in formalin and sent to pathology for further analysis. [place] were removed. Procedure was ended. Patient tolerated the procedure well. Complications: None. EBL: None. Specimen: 3 cores of tissue obtained with an 18-gauge biopsy gun sent to pathology in formalin for further histopathology analysis. DISPOSITION: The wire holding in good condition. Procedure Note Rock Stringer MD - 05/27/2020 Procedure: Ultrasound-guided core needle biopsy of left supraclavicular lymphadenopathy. Preprocedure diagnosis: Renal cell carcinoma. PET positive left supraclavicular lymph node. Postprocedure diagnosis: Same. Attending: Rock Stringer M.D. Anesthesia: Local, 1 percent lidocaine. Conscious sedation: None. Consent: The procedure was explained to the patient including benefits, risks and alternatives and informed consent was obtained. Procedure details: Patient was brought to interventional radiology suite and placed on table supine. [place] thymol protocol performed.Real-time grayscale and color Doppler images of the left supraclavicular regionwere acquired. A hypoechoic enlarged lymph node was identified correlatingwell with previous findings described on latest PET/CT. Puncture sites selected. The left supraclavicular region was prepped and draped in the usual aseptic fashion justification of the skin soft tissues with 1 percent lidocaine, a 17-gauge guide needle was advanced into the targeted lesion under direct ultrasound guidance. Using a 18-gauge biopsy gun and a coaxial manner 3 passes were made into the lesion. Cores of tissue obtained were placed in formalin and sent to pathology for further analysis. [place]ore were removed. Procedure was ended. Patient toleratedthe procedure well. Complications: None. EBL: None. Specimen: 3 cores of tissue obtained with an 18-gauge biopsy gun sent to pathology in formalin for further histopathology analysis. DISPOSITION: The wire holding in good condition. IMPRESSION: Successful ultrasound-guided core needle biopsy of left supraclavicular lymph node as described. This report was electronically signed by ROCK SMITH on 05/27/2020 12:52 PM . Wai Tse MD CT ORDERABLES * PATHOLOGY TISSUE (05/27/2020 11:57 AM CDT) Case Report Surgical Pathology Report Case: [id number] Authorizing Provider: Wai Tse MD Collected: 05/27/2020 11:57 AM Ordering Location: [facility] IVR Received: 05/27/2020 12:16 PM Pathologist: Lianne Pina Mai, DO Specimen: Soft Tissue Mass 05/29/2020 10:25 AM CDT [facility] Final Diagnosis Left supraclavicular mass, biopsy: - Consistent with metastatic renal cell carcinoma. 05/29/2020 10:25 AM CDT [facility] Microscopic Description and Comment Sections show fibrous tissue cores with focal nests of neoplastic cells demonstrating abundant pale amphophilic to clear cytoplasm, round to slightly irregular nuclei and prominent nucleoli. Immunoperoxidase studies show the neoplastic cells are positive for pancytokeratin and PAX-8. RCC stains rare cells. The neoplastic cells are negative for KATIE-3. The immunohistochemical controls are appropriately reactive. Overall, the morphologic and immunophenotypic findings are most compatible with metastatic renal cell carcinoma. 05/29/2020 10:25 AM T [facility] Clinical History 60 year old female with a history of metastatic renal cell carcinoma and ductal carcinoma in situ of the breast. CT chest showing enlarging left upper lobe nodules, 1.3 cm largest diameter. PET + neck/mediastinum lymphadenopath. 05/29/2020 10:25 AM T [facility] Gross Description The requisition and specimen(s) are labeled with the patient's name, Suzette Shoemaker. Received in formalin, specimen A , are multiple white valdovinos tissue cores with focal area of hemorrhage measuring 0.1-1.4 cm in length with a diameter of 0.1 cm. The specimen is submitted in toto in cassette A1. KK 05/29/2020 10:25 AM [facility] Disclaimer The performance characteristics of all immunohistochemical and indirect immunofluorescence stains (if any) cited in this report were determined by the Histopathology Laboratory of [facility]. Some of these tests were developed by our own laboratory and have not been cleared or approved by the US Food and Drug Administration. The FDA does not require this test to go through premarket FDA review. These tests are used for clinical purposes. They should not be regarded as investigational or for research. This laboratory is certified under the Clinical Laboratory Improvement Amendments (CLIA) as qualified to perform high complexity clinical laboratory testing. This case has been personally reviewed and interpreted by the attending (teaching) pathologist. 05/29/2020 10:25 AM [facility] Embedded Images 05/29/2020 10:25 AM T [facility] Pathology/Cytology SOFT TISSUE MASS / Unknown Collection / Unknown 05/27/2020 11:57 AM CDT 05/27/2020 12:16 PM CDT Comment:L supraclavicular ma ss Wai Tse MD LAB - PATHOLOGY/CYTO LOGY ORDERABLES [facility] [address] [facility]. [place], [place] [id number] [place] [address] * MRI BRAIN WWO CONTRAST (05/22/2020 12:16 PM CDT) Anatomical Region Laterality Modality Head Magnetic Resonan ce 05/22/2020 6:56 PM CDT Impressions 05/23/2020 10:12 PM CDT IMPRESSION: 1. No enhancing lesions to suggest intracranial metastasis. This report was electronically signed by JAQUELIN JAY on 05/23/2020 10:12 PM . Narrative 05/23/2020 10:12 PM CDT MRI BRAIN WWO CONTRAST DATE: 05/22/2020 12:17 PM EXAMINATION: Magnetic resonance imaging (MRI) of the brain without and with contrast HISTORY: C64.9: Metastatic renal cell carcinoma, unspecified laterality TECHNIQUE: MRI of the brain was performed prior to and following the uneventful administration of 8.5 mL intravenous GADAVIST contrast according to a tumor protocol. COMPARISON: Outside facility MRI of the brain from 02/10/2019. FINDINGS: No evidence of acute or chronic hemorrhage is identified. No evidence of acute cerebral infarction is seen. The ventricles are of stable size, shape, and morphology. No mass effect or midline shift is seen. Minimal periventricular white matter FLAIR hyperintensity is a nonspecific finding. No enhancing lesions are identified. The corpus callosum and sella appear normal. The posterior fossa, brainstem, and craniocervical junction appear normal. Other than mild paranasal sinus disease, the visualized portions of the orbits, paranasal sinuses, and mastoids appear normal. Normal flow voids are demonstrated in the carotid arteries and basilar artery. The calvarium and visualized cervical spine appear normal. Procedure Note Jaquelin Jay MD - 05/23/2020 MRI BRAIN WWO CONTRAST DATE: 05/22/2020 12:17 PM EXAMINATION: Magnetic resonance imaging (MRI) of the brain without and with contrast HISTORY: C64.9: Metastatic renal cell carcinoma, unspecified laterality TECHNIQUE: MRI of the brain was performed prior to and following the uneventful administration of 8.5 mL intravenous GADAVIST contrast according to a tumor protocol. COMPARISON: Outside facility MRI of the brain from 02/10/2019. FINDINGS: No evidence of acute or chronic hemorrhage is identified. No evidence of acute cerebral infarction is seen. The ventricles are of stable size, shape, and morphology. No mass effect or midline shift is seen. Minimal periventricular white matter FLAIR hyperintensity is a nonspecific finding. No enhancing lesions are identified. The corpus callosum and sella appear normal. The posterior fossa, brainstem, and craniocervical junction appear normal. Other than mild paranasal sinus disease, the visualized portions of the orbits, paranasal sinuses, and mastoids appear normal. Normal flow voids are demonstrated in the carotid arteries and basilar artery. Thecalvarium and visualized cervical spine appear normal. IMPRESSION: 1. No enhancing lesions to suggest intracranial metastasis. This report was electronically signed by JAQUELIN JAY on05/23/2020 10:12 PM . Eder Dumont MD MR ORDERABLES * XR RIBS LEFT 2VW (05/12/2020 10:38 AM CDT) Anatomical Region Laterality Modality Chest Radiographic Lisy ging 05/12/2020 1:41 PM CDT Impressions 05/13/2020 2:11 PM CDT FINDINGS/IMPRESSION: No lytic or blastic lesion is identified in the left seventh rib to correlate with the uptake seen on PET/CT. No acute fracture is identified. Linear atelectasis seen in the left upper lobe. The visible lungs are clear without focal consolidation, pleural effusion, or pneumothorax. The cardiomediastinal silhouette is normal. Dictated by Pan Damian MD (radiology scheduler). Dr. Fannie Blackman M.D. have personally reviewed and interpreted this examination/study. This report was electronically signed by Fannie LEHMAN M.D. on 05/13/2020 2:11 PM . Narrative 05/13/2020 2:11 PM CDT EXAMINATION: XR RIBS LEFT 2VW HISTORY: C64.9: Metastatic renal cell carcinoma, unspecified laterality, PET/CT showed uptake in a left seventh rib lesion COMPARISON: Comparison is made with a PET/CT from 05/10/2020 Procedure Note Tracy Lehman MD - 05/13/2020 EXAMINATION: XR RIBS LEFT 2VW HISTORY: C64.9: Metastatic renal cell carcinoma, unspecified laterality, PET/CT showed uptake in a left seventh rib lesion COMPARISON: Comparison is made with a PET/CT from 05/10/2020 FINDINGS/IMPRESSION: No lytic or blastic lesion is identified in the left seventh rib to correlate with the uptake seen on PET/CT. No acute fracture isidentified. Linear atelectasis seen in the left upper lobe. The visible lungs are clear without focal consolidation, pleural effusion, or pneumothorax.The cardiomediastinal silhouette is normal. Dictated by Pan Damian MD (radiology scheduler). Dr. Fannie Blackman M.D. have personally reviewed and interpretedthis examination/study. This report was electronically signed by Fannie LEHMAN M.D. on 05/13/2020 2:11 PM . Eder Dumont MD DIAGNOSTIC IMAGING O RDERABLES * PET CT WHOLE BODY (05/10/2020 10:38 AM CDT) Anatomical Region Laterality Modality Positron Emissio n Tomography (PET) 05/10/2020 9:05 AM CDT Impressions 05/10/2020 3:19 PM CDT IMPRESSION: 1. Intensely FDG avid left supraclavicular/left upper paratracheal , prevascular and conglomerated AP window lymph nodes. Highly suspicious for metastasis. 2. Tiny few mm non-FDG avid right upper lobe and left lower lobe lung nodules. Too small to completely characterize by PET. However, continued follow-up is recommended. 3. Intensely FDG avid focal lesion at the anorectal junction, suspicious for malignancy. Further evaluation with colonoscopy and biopsy if needed is recommended. 4. FDG avid posterior left seventh rib lesion, suspicious for osseous metastasis This report was approved by Mike Guidry on 05/10/2020 11:[address] BECKY Blackman M.D. have personally reviewed and interpreted this examination/study. This report was electronically signed by BECKY CESAR M.D. on 05/10/2020 3:19 PM . Narrative 05/10/2020 3:19 PM CDT Procedure: PET/CT Study. HISTORY: 60-year-old female with history of metastatic right renal cell carcinoma status post radical nephrectomy in 2012 with lung metastasis status post resection of left upper lobe nodule and pleural metastasis in December 2019 status post immunotherapy . Evaluate for subsequent treatment strategy. TECHNIQUE: 8.62 mCi of F-18 FDG was injected intravenously in the left hand. PET/CT images were acquired from top of the head to the feet after approximately 60 minutes post-injection with the CT being low-dose, non-contrast. No separate report for the CT was generated as it was of non-diagnostic quality and was used for anatomic localization and attenuation correction only. Blood glucose level at the time of injection was 84 mg/dl. Patient's BMI is 32. FINDINGS: No prior study is available for comparison. For reference, SUV max of liver is 3.15 Head and neck: There is physiological FDG activity throughout the brain parenchyma. There is mild heterogenicity of FDG activity at the posterior parafalcine and parietal region, likely artifact given the negative MRI done on February 2019. No hypermetabolic or enlarged cervical lymph node is identified. Chest: The heart size is normal. No pericardial effusion is present. Status post right upper lobectomy with no abnormal FDG activity. Anterior left upper lobe groundglass opacification without FDG activity, likely postoperative. Otherwise the lungs are clear of focal consolidation. No pleural effusion or focal pleural thickening is identified. There is no evidence of pneumothorax. Tiny 3 mm non-FDG avid right upper lobe nodule. too small to completely characterize by PET. Another 0.3 cm mildly FDG avid left lower lobe subpleural nodule with SUV max 1.0, too small to be characterized by PET. Intensely FDG avid left supraclavicular/left upper mediastinal lymph node measures 1.8 cm in diameter with SUV max 8.6, and intensity FDG avid prevascular lymph node measures 1.8 cm in diameter with SUV max 6.5, conglomerated AP window lymph nodes measures 4.5 x 2.2 cm with SUV max 9.4. Abdomen and pelvis: Within the limitations of a noncontrast examination, the liver, gallbladder, spleen, pancreas, left kidney and right adrenal gland are unremarkable. Multiple liver hypodensities with no increased FDG activity, likely liver cysts. The patient is status post right nephrectomy with no abnormal FDG activity. Mild left adrenal thickening with mild increased FDG activity, SUV max up to 1.9, likely benign. There is normal FDG activity throughout the small and large bowel. No free air or free fluid is identified within the abdomen. There is no hypermetabolic or enlarged abdominal or pelvic lymphadenopathy. Bilateral benign looking inguinal lymph nodes. Intensely FDG avid focal lesion at the anorectal junction, measures 3 cm indeterminate with SUV max 4.75. Musculoskeletal: FDG avid posterior left seventh rib lesion measures 1 cm in diameter with SUV max 2.8. Multilevel degenerative disease with spine more prominent on the lumbar region. Bilateral total hip arthroplasties and degenerative disease of right knee. Procedure Note Becky Cesar MD - 05/10/2020 Procedure: PET/CT Study. HISTORY: 60-year-old female with history of metastatic right renal cell carcinoma status post radical nephrectomy in 2012 with lung metastasis status post resection of left upper lobe nodule and pleural metastasisin December 2019 status post immunotherapy . Evaluate for subsequent treatment strategy. TECHNIQUE: 8.62 mCi of F-18 FDG was injected intravenously in the left hand. PET/CT images were acquired from top of the head to the feet after approximately 60 minutes post-injection with the CT being low-dose, non-contrast. No separate report for the CT was generated as it was of non-diagnostic quality and was used for anatomic localization and attenuation correction only. Blood glucose level at the time ofinjection was 84 mg/dl. Patient's BMI is 32. FINDINGS: No prior study is available for comparison. For reference, SUV max of liver is 3.15 Head and neck: There is physiological FDG activity throughout the brain parenchyma.There is mild heterogenicity of FDG activity at the posterior parafalcine and parietal region, likely artifact given the negative MRI done on February 2019. No hypermetabolic or enlarged cervical lymph node is identified. Chest: The heart size is normal. No pericardial effusion is present. Status post right upper lobectomy with no abnormal FDG activity.Anterior left upper lobe groundglass opacification without FDG activity, likely postoperative. Otherwise the lungs are clear of focal consolidation. No pleural effusion or focal pleural thickening is identified. There is no evidence of pneumothorax. Tiny 3 mm non-FDG avid right upper lobenodule. too small to completely characterize by PET. Another 0.3 cm mildly FDG avid left lower lobe subpleural nodule with SUV max 1.0, too small to be characterized by PET. Intensely FDG avid left supraclavicular/left upper mediastinal lymphnode measures 1.8 cm in diameter with SUV max 8.6, and intensity FDG avid prevascular lymph node measures 1.8 cm in diameter with SUV max 6.5, conglomerated AP window lymph nodes measures 4.5 x 2.2 cm with SUV max 9.4. Abdomen and pelvis: Within the limitations of a noncontrast examination, the liver, gallbladder, spleen, pancreas, left kidney and right adrenal gland are unremarkable. Multiple liver hypodensities with no increased FDGactivity, likely liver cysts. The patient is status post right nephrectomy with no abnormal FDG activity. Mild left adrenal thickening with mild increased FDG activity, SUV max up to 1.9, likely benign. There is normal FDG activity throughout the small and large bowel. Nofree air or free fluid is identified within the abdomen. There is no hypermetabolic or enlarged abdominal or pelvic lymphadenopathy. Bilateral benign looking inguinal lymph nodes. Intensely FDG avid focal lesion at the anorectal junction, measures 3 cm indeterminate with SUV max 4.75. Musculoskeletal: FDG avid posterior left seventh rib lesion measures 1 cm in diameterwith SUV max 2.8. Multilevel degenerative disease with spine more prominenton the lumbar region. Bilateral total hip arthroplasties and degenerative disease of right knee. IMPRESSION: 1. Intensely FDG avid left supraclavicular/left upper paratracheal , prevascular and conglomerated AP window lymph nodes. Highly suspiciousfor metastasis. 2. Tiny few mm non-FDG avid right upper lobe and left lower lobe lung nodules. Too small to completely characterize by PET. However, continued follow-up is recommended. 3. Intensely FDG avid focal lesion at the anorectal junction,suspicious for malignancy. Further evaluation with colonoscopy and biopsy if needed is recommended. 4. FDG avid posterior left seventh rib lesion, suspicious for osseous metastasis This report was approved by Mike Guidry on 05/10/2020 11:20 AM . I, Dr. BECKY CESAR M.D. have personally reviewed and interpreted this examination/study. This report was electronically signed by BECKY CESAR M.D. on05/10/2020 3:19 PM . Wai Tse MD NM ORDERABLES * IMAGING RADIOLOGY XRAY RESULTS ORDER (04/26/2020 11:11 AM CDT) Only the most recent of3 resultswithin the time period is included. Anatomical Region Laterality Modality Other Narrative 04/26/2020 11:11 AM CDT Ordered by an unspecified provider. Scanned Document IMAGING * CARDIAC RHYTHM STRIP ORDER (01/05/2020 7:02 PM SALES OUTFITTER) Only the most recent of2 resultswithin the time period is included. Narrative 01/05/2020 7:02 PM SALES OUTFITTER Ordered by an unspecified provider. Scanned Document CARDIAC SERVICES ORD ERABLES * APHERESIS/TRANSFUSION ORDER (01/05/2020 7:02 PM SALES OUTFITTER) Narrative 01/05/2020 7:02 PM SALES OUTFITTER Ordered by an unspecified provider. Scanned Document NURSING - VITAL SIGN S AND ASSESSMENT * XR CHEST 1VW PORTABLE (01/02/2020 8:35 AM SALES OUTFITTER) Only the most recent of4 resultswithin the time period is included. Anatomical Region Laterality Modality Chest Radiographic Lisy ging 01/02/2020 8:51 AM SALES OUTFITTER Impressions 01/02/2020 8:51 AM SALES OUTFITTER Clear lungs. Reading Radiologist: Kody Lord MD on 01/02/2020 at 8:51 AM Narrative 01/02/2020 8:51 AM SALES OUTFITTER Chest x-ray single view. HISTORY: Postop. Single view of the chest is compared to a prior exam of 01/01/2020. Heart size is stable. Lungs are clear. Procedure Note Kody Lord MD - 01/02/2020 Chest x-ray single view. HISTORY: Postop. Single view of the chest is compared to a prior exam of 01/01/2020. Heart size is stable. Lungs are clear. IMPRESSION Clear lungs. Reading Radiologist: Kody Lord MD on 01/02/2020 at 8:51 AM Manpreet King MD DIAGNOSTIC IMAGING O RDERABLES * CULTURE VRE (01/01/2020 1:14 PM SALES OUTFITTER) Culture Negative for vancomycin-resi stant Enterococci (VRE) JOSE 01/03/2020 7:27 AM SALES OUTFITTER [facility]CRO[facility] Microbiology ENTIRE RECTUM / Unknown Collection / Unknown 01/01/2020 1:14 PM SALES OUTFITTER 01/01/2020 1:26 PM SALES OUTFITTER Manpreet King MD LAB - MICROBIOLOGY O RASHMI Performing Organization Address City/[facility]/ZIP Co de Phone Number [facility] [address] [place] [address], [facility] [phone] * CULTURE MRSA (01/01/2020 1:14 PM SALES OUTFITTER) Only the most recent of2 resultswithin the time period is included. Culture Negative for methicillin-resist ant Staphylococcus aureus (MRSA) JOSE 01/03/2020 7:23 AM SALES OUTFITTER [facility]CRO[facility] Microbiology ENTIRE RECTUM / Unknown Collection / Unknown 01/01/2020 1:14 PM SALES OUTFITTER 01/01/2020 1:26 PM SALES OUTFITTER Manpreet King MD LAB - MICROBIOLOGY O RASHMI Performing Organization Address [facility] Co de Phone Number [facility] [address] [place] [address], [facility] [phone] * SLIDE PREP HISTOLOGY (01/01/2020 8:42 AM SALES OUTFITTER) Client Specimen ID # [id number] 01/07/2020 6:02 PM SALES OUTFITTER [facility] Number of Blocks Received 0 01/07/2020 6:02 PM SALES OUTFITTER [facility] Number of Slides 1 01/07/2020 6:02 PM SALES OUTFITTER [facility] Number of Control Slides 1 01/07/2020 6:02 PM SALES OUTFITTER [facility] Pathology/Cytolo gy BIOPSY OF LUNG / Unknown 01/01/2020 8:42 AM SALES OUTFITTER 01/06/2020 3:30 PM SALES OUTFITTER Johnie Baum MD LAB - PATHOLOGY/CYTO LOGY ORDERABLES Performing Organization Address City/[facility]/ZIP Co de Phone Number [facility] [address] [place] [address], [facility] [phone] * GROSS + MICRO EXAM (STL) (01/01/2020 8:42 AM SALES OUTFITTER) Only the most recent of2 resultswithin the time period is included. Case Report Surgical Pathology Report Case: [id number] Authorizing Provider: Manpreet King MD Collected: 01/01/2020 08:42 AM Ordering Location: [facility] Received: 01/01/2020 10:55 AM Pathologist: Johnie Mendiola MD Specimens: A) - Nodule, left upper lung nodule B) - Implant, pleural implant 01/08/2020 3:23 PM [facility] Addendum 1 Immunohistochemical stains with appropriate controls show the neoplastic cells to stain with vimentin, CD10, focally with RCC and PAX8. No significant staining is noted with CK 7, CK 20, TTF-1 and Napsin A. These findings would be consistent with metastatic renal cell carcinoma. 01/08/2020 3:23 PM [facility] Addendum electronically signed by Johnie Mendiola MD on 01/08/2020 at 3:23 PM Final Diagnosis A. Left upper lobe lung nodule, resection: -- Metastatic renal cell carcinoma with foci of necrosis. -- Maximum tumor dimensions of 1.8 x 1.6 x 1.4 cm. -- Margins of excision are free of carcinoma, closest parenchymal margin is 3 mm. B. Left pleural implant, excision: -- Metastatic renal cell carcinoma with foci of necrosis, see comment. Comment; Margins of excision on specimen B cannot be properly assessed due to cautery artifacts. 01/08/2020 3:23 PM [facility] Clinical History 59-year-old female with history of metastatic renal cell carcinoma 01/08/2020 3:23 PM [facility] Gross Description A. Received in a container of formalin and labeled Suzette Shoemaker and left upper lung nodule is a 9 g lung wedge measuring 6.3 x 3.7 x 2.6 cm. The pleura is purple-brown with an area of discoloration. The pleura is inked blue. The staple line is removed and the underlying parenchyma is inked black. Sectioning displays a slightly lobular, gritty, huang-valdovinos mass measuring 1.8 x 1.6 x 1.4 cm. It is 0.3 cm from the parenchymal margin. The uninvolved parenchyma displays a soft, purple-brown appearance. Sole Molder sections are submitted as follows: A1 - shave of staple line A2-A5 - mass, submitted entirely in relation to staple line A6 - random uninvolved parenchyma B. Received in a container of formalin and labeled Suzette Shoemaker and pleural implant is a firm, valdovinos-white nodule measuring 1.7 x 1.6 x 0.7 cm. The specimen is inked black. Sectioning displays a focally necrotic, friable, valdovinos-huang cut surface. The specimen is submitted entirely in B1-B2. JS/ns 01/08/2020 3:23 PM [facility] Microscopic Description Sections from the lung show malignant neoplasm composed of nests of cells with clear cytoplasm, distinct cell borders with elck-wi-mrtgghxanf pleomorphic nuclei. The neoplasm has a somewhat multinodular pattern with areas of central necrosis. The parenchyma margin of excision is free of carcinoma. Sections from the pleural mass shows a neoplasm with similar morphologic appearance. 01/08/2020 3:23 PM [facility] Disclaimer All histochemical and/or immunohistochemical results are interpreted with controls that demonstrate appropriate staining reactions before reporting results. Note on use of immunocytochemistry reagents: This test was developed and its performance characteristic determined by [facility], Department of Laboratory Medicine. It has not been cleared or approved by the U.S. Food and Drug Administration (FDA). The FDA has determined that such clearance or approval is not necessary. The test is used for clinical purpose. It should not be regarded as investigational or for research. This laboratory is certified to perform high complexity testing. 01/08/2020 3:23 PM [facility] Embedded Images 01/08/2020 3:23 PM [facility] Pathology/Cytology NODULE / Unknown 01/01 8:42 AM SALES OUTFITTER 01/01/2020 10:55 AM SALES OUTFITTER Comment:Pre-op diagnosis: Diagnosis unknown [R69] Miscellaneous samples (specimen) IMPLANT SUBMITTED SPECIMEN / Unknown 01/01/2020 8:51 AM SALES OUTFITTER 01/01/2020 10:55 AM SALES OUTFITTER Comment:Pre-op diagnosis: Diagnosis unknown [R69] Manpreet King MD LAB - PATHOLOGY/CYTO LOGY ORDERABLES [facility] [address] [place] [address] * IV PLACEMENT PERFORMABLE (01/01/2020 8:28 AM SALES OUTFITTER) Gerry Fang APRN-CRNA - 01/01/2020 8:28 AM SALES OUTFITTER Gerry Glover APRN-CRNA 01/01/2020 8:28 AM Peripheral IV Line Placement: Patient Location: OR Procedure: IV start (48381). Procedure Section: Skin Prep: alcohol. Orientation: left Location: hand Local Anesthetic Used? No Catheter Gauge: 18 Number of Attempts: 1. Procedure Tolerance: performed while patient under general anesthesia. Procedure Start Time: 01/01/2020 8:00 AM. Staff Section Anesthesia Provider: Sami Carter MD, Performed the procedure Sami Carter MD GENERAL ANESTHESIA O RDERABLES * ETT LINE PERFORMABLE (01/01/2020 8:22 AM SALES OUTFITTER) Gerry Fang APRN-CRNA - 01/01/2020 8:22 AM SALES OUTFITTER Gerry Glover APRN-CRNA 01/01/2020 8:23 AM Endotracheal Tube Placement: Patient Location: OR. Intubation Event Date/Time: 01/01/2020 7:51 AM Procedure: intubation (60057). Procedure Section: Sedation: under general anesthesia. Indications for Airway Management: anesthesia Procedure pretreatments used? No Induction: standard IV Patient Position: sniffing and supine Mask Ventilation: easy. Blade Type: Nica Blade Size: 3 Laryngoscopy View: grade 1 (full cords) Tube: double lumen Placement: oral Tube type: cuff - inflated Tube Size (FR): 39 Depth of Insertion (CM): 31 Measured From: lips Cuff volume (mL): 6 Cuff Inflated With: air Number of Attempts: 1. Placement Verified By: direct visualization, CO2 detector, bilateral breath sounds, chest auscultation and bronchoscope Tube secured with: adhesive tape. Difficult Airway? No. Procedure Start Time: 01/01/2020 7:51 AM. Staff Section Anesthesia Provider: Gerry Glover APRN-CRNA, Performed the procedure Sami Carter MD GENERAL ANESTHESIA O RDERABLES * TYPE + SCREEN PANEL (01/01/2020 6:35 AM SALES OUTFITTER) Only the most recent of2 resultswithin the time period is included. Pathologist [facility] ABO AB 01/01/2020 7:08 AM SALES OUTFITTER [facility] Rh Type Positive 01/01/2020 7:08 AM SALES OUTFITTER [facility] Comment:History checked. Antibody Screen Negative 01/01/2020 7:08 AM [facility] Blood Bank BLOOD SPECIMEN / Unknown Venipuncture / Unknown 01/01/2020 6:35 AM SALES OUTFITTER 01/01/2020 6:42 AM SALES OUTFITTER Manpreet King MD LAB - BLOOD BANK ORD ERABLES Performing Organization Address City/[facility]/ZIP Co de Phone Number [facility] BLOOD BANK LAB [address] [phone] * EKG 12-LEAD (12/25/2019 11:21 AM SALES OUTFITTER) Only the most recent of7 resultswithin the time period is included. Ventricular Rate 73 BPM [facility] MUSE Atrial Rate 73 BPM [facility] MUSE P-R Interval 152 ms [facility] M[facility] QRS Duration ms 80 ms [facility] M[facility] Q-T Interval ms 370 ms [facility] MUSE QTC Calculation (Bezet) 407 ms [facility] MUSE Calculated P [place] 35 degrees [facility] MUSE Calculated R [place] -22 degrees [facility] MUSE Calculated T [place] 8 degrees [facility] MUSE Interpretation EKG NORMAL SINUS RHYTHM POSSIBLE LEFT ATRIAL ENLARGEMENT LEFT VENTRICULAR HYPERTROPHY NONSPECIFIC T WAVE CHANGES ABNORMAL ECG NO PREVIOUS ECGS AVAILABLE Confirmed by DO Turner Stephanie ([id number]) on 12/26/2019 9:13:56 AM [facility] MUSE 12/25/2019 11:2 1 AM SALES OUTFITTER 12/26/2019 9:13 AM SALES OUTFITTER Manpreet King MD ECG ORDERABLES Performing Organization Address City/[facility]/ZIP Co de Phone Number [facility] MUSE * XR CHEST 2VW (12/25/2019 10:47 AM SALES OUTFITTER) Anatomical Region Laterality Modality Chest Radiographic Lisy ging 12/25/2019 10:5 0 AM SALES OUTFITTER Impressions 12/25/2019 10:54 AM SALES OUTFITTER Previously seen left upper lobe pulmonary nodule is not identified. Hypoventilated lungs with left basilar atelectasis. Reading Radiologist: Jonathan Cortes MD on 12/25/2019 at 10:54 AM Narrative 12/25/2019 10:54 AM SALES OUTFITTER Chest 2 views INDICATION: Lung cancer. FINDINGS: The lung marsh are hypoventilated. There is some atelectasis in the left lung base. The right lung is clear. There is no pleural effusion or pneumothorax. The heart size is stable. Previously seen pulmonary nodule in the left upper lobe is not identified. Procedure Note Jonathan Cortes MD - 12/25/2019 Chest 2 views INDICATION: Lung cancer. FINDINGS: The lung marsh are hypoventilated. There is some atelectasis in the left lung base. The right lung is clear. There is no pleural effusion or pneumothorax. The heart size is stable. Previously seen pulmonary nodule in the left upper lobe is not identified. IMPRESSION Previously seen left upper lobe pulmonary nodule is not identified. Hypoventilated lungs with left basilar atelectasis. Reading Radiologist: Jonathan Cortes MD on 12/25/2019 at 10:54 AM Manpreet King MD DIAGNOSTIC IMAGING O RDERABLES * URINE MICROSCOPIC ONLY (12/25/2019 10:02 AM SALES OUTFITTER) RBC UA 0-2 None Seen, 0-2, 3-5 # /hpf 12/25/2019 11:03 AM SALES OUTFITTER [facility] WBC UA 0-5 None Seen, 0-5 # /hpf 12/25/2019 11:03 AM SALES OUTFITTER [facility] Bacteria UA None Seen None Seen 12/25/2019 11:03 AM SALES OUTFITTER [facility] Squamous Epithelial Cells 0-2 None Seen, 0-2, 3-5 /hpf 12/25/2019 11:03 AM SALES OUTFITTER [facility] Urine URINE SPECIMEN OBTAINED BY CLEAN CATCH PROCEDURE / Unknown Collection / Unknown 12/25/2019 10:02 AM SALES OUTFITTER 12/25/2019 10:40 AM SALES OUTFITTER Narrative [facility] - 12/25/2019 11:03 AM SALES OUTFITTER Manpreet King MD LAB - URINALYSIS ORD ERABLES [facility] [address] [place] [address] * PT PTT PANEL (12/25/2019 10:02 AM SALES OUTFITTER) PT 13.7 12.1 - 14.8 sec 12/25/2019 11:03 AM SALES OUTFITTER [facility] INR 1.1 0.9 - 1.1 12/25/2019 11:03 AM SALES OUTFITTER [facility] PTT 27.8 23.0 - 38.4 sec 12/25/2019 11:03 AM SALES OUTFITTER [facility] Blood BLOOD SPECIMEN / Unknown Venipuncture / Unknown 12/25/2019 10:02 AM SALES OUTFITTER 12/25/2019 10:40 AM SALES OUTFITTER Narrative [facility] - 12/25/2019 11:03 AM SALES OUTFITTER Conventional Warfarin Anticoagulant Therapy: INR Reference Range: 2.0-3.0 Intensive Warfarin Anticoagulant Therapy: INR Reference Range: 2.5-3.5 Heparin Therapeutic Range for PTT: 71.0 - 109.0 seconds. Manpreet King MD LAB - COAGULATION OR DERABLES Performing Organization Address City/State/[facility] Co de Phone Number [facility] [address] [place] [address] * CT CHEST W CONTRAST (12/02/2019 11:12 AM SALES OUTFITTER) Anatomical Region Laterality Modality Chest Computed Tomogra phy 12/02/2019 11:1 6 AM SALES OUTFITTER Impressions 12/02/2019 11:25 AM SALES OUTFITTER Increase in size of the left upper lobe lung nodule. Mediastinal and left hilar adenopathy as described. Multiple hypodensities within the liver which are indeterminate. However, these would be concerning for metastatic disease. Reading Radiologist: Jonathan Cortes MD on 12/02/2019 at 11:25 AM Narrative 12/02/2019 11:[address] Chest with IV contrast INDICATION:Left upper lobe malignancy. History of metastatic renal cell carcinoma. TECHNIQUE: CT examination of the chest was performed from the lung apices through the lung bases utilizing helical scanning after the administration of IV contrast. Sagittal and coronal reconstructions were performed. Contrast: 80 cc of Isovue-370 was utilized. FINDINGS: The study is compared with the recent CT-guided lung biopsy. There are degenerative changes of the spine. Since the lung biopsy in September 2019, the left upper lobe lung nodule which is noted anteriorly has increased in size now measuring 16.6 mm in maximal diameter. The margins of the mass are irregular. Calcified granulomas are seen within the left lung base. There is some scarring within the right middle lobe. No additional pulmonary nodules are seen. The lungs are clear of infiltrate. There is no pleural effusion. There is no pneumothorax. The central airways are normal in caliber. The thyroid gland is unremarkable. There is no axillary adenopathy. There is mediastinal adenopathy. These are in a left paratracheal location. Maximal diameter of the largest lymph node measures 2.3 cm. Left hilar adenopathy is also noted with a lymph node measuring 2.2 cm. The aorta is normal in caliber with no evidence for aneurysm or dissection. The heart is normal in size. There is a small hiatal hernia. Numerous small hypodensities are seen within the liver. These are indeterminate. Malignancy is not excluded. The patient is status post right nephrectomy. Procedure Note Jonathan Cortes MD - 12/02/2019 CT Chest with IV contrast INDICATION:Left upper lobe malignancy. History of metastatic renal cell carcinoma. TECHNIQUE: CT examination of the chest was performed from the lung apices through the lung bases utilizing helical scanning after the administration of IV contrast. Sagittal and coronal reconstructions were performed. Contrast: 80 cc of Isovue-370 was utilized. FINDINGS: The study is compared with the recent CT-guided lung biopsy. There are degenerative changes of the spine. Since the lung biopsy in September 2019, the left upper lobe lung nodule which is noted anteriorly has increased in size now measuring 16.6 mm in maximal diameter. The margins of the mass are irregular. Calcified granulomas are seen within the left lung base. There is some scarring within the right middle lobe. No additional pulmonary nodules are seen. The lungs are clear of infiltrate. There is no pleural effusion. There is no pneumothorax. The central airways are normal in caliber. The thyroid gland is unremarkable. There is no axillary adenopathy. There is mediastinal adenopathy. These are in a left paratracheal location. Maximal diameter of the largest lymph node measures 2.3 cm. Left hilar adenopathy is also noted with a lymph node measuring 2.2 cm. The aorta is normal in caliber with no evidence for aneurysm or dissection. The heart is normal in size. There is a small hiatal hernia. Numerous small hypodensities are seen within the liver. These are indeterminate. Malignancy is not excluded. The patient is status post right nephrectomy. IMPRESSION Increase in size of the left upper lobe lung nodule. Mediastinal and left hilar adenopathy as described. Multiple hypodensities within the liver which are indeterminate. However, these would be concerning for metastatic disease. Reading Radiologist: Jonathan Cortes MD on 12/02/2019 at 11:25 AM Manpreet King MD CT ORDERABLES * CREATININE BLOOD - POINT OF CARE (IP) (12/02/2019 11:09 AM SALES OUTFITTER) Creatinine POCT 0.74 0.7 - 1.2 mg/dL [facility] POCT TESTING QC Verified Yes Yes [facility] POC T TESTING Blood BLOOD SPECIMEN / Unknown 12/02/2019 11:09 AM SALES OUTFITTER Manpreet King MD LAB - POINT OF CARE ORDERABLES [facility] POCT TESTING [address] [phone] * LDH BLOOD (09/22/2019 1:58 PM SALES OUTFITTER) Only the most recent of22 resultswithin the time period is included. LDH Total 185 125 - 243 Units/L 09/22/2019 2:24 PM SALES OUTFITTER [facility] Blood BLOOD SPECIMEN / Unknown Lab Venipuncture / Unknown 09/22/2019 1:58 PM SALES OUTFITTER 09/22/2019 2:02 PM SALES OUTFITTER Wai Tse MD LAB - CHEMISTRY HELENA LANDA [facility] [address] [phone] * XR CHEST INSPIRATION AND EXPIRATION (09/18/2019 1:27 PM SALES OUTFITTER) Only the most recent of2 resultswithin the time period is included. Anatomical Region Laterality Modality Chest Radiographic Lisy ging 09/18/2019 1:31 PM SALES OUTFITTER Impressions 09/18/2019 1:51 PM SALES OUTFITTER Negative for pneumothorax. Edited by Nadeen Rose on 09/18/2019 1:43 PM Reading Radiologist: Kody Lord MD on 09/18/2019 at 1:51 PM Narrative 09/18/2019 1:51 PM SALES OUTFITTER CHEST X-RAY INSPIRATION AND EXPIRATION HISTORY: Post lung biopsy. Inspiration and expiration radiographs show no pneumothorax. Heart size is stable. Left upper lobe nodule is noted. Procedure Note Kody Lord MD - 09/18/2019 CHEST X-RAY INSPIRATION AND EXPIRATION HISTORY: Post lung biopsy. Inspiration and expiration radiographs show no pneumothorax. Heart size is stable. Left upper lobe nodule is noted. IMPRESSION Negative for pneumothorax. Edited by Nadeen Rose on 09/18/2019 1:43 PM Reading Radiologist: Kody Lord MD on 09/18/2019 at 1:51 PM Micah Barraza MD DIAGNOSTIC IMAGING O RDERABLES * PT-INR (09/18/2019 7:50 AM SALES OUTFITTER) PT 12.3 12.1 - 14.8 sec 09/18/2019 8:00 AM SALES OUTFITTER [facility] INR 1.0 0.9 - 1.1 09/18/2019 8:00 AM SALES OUTFITTER [facility] Blood BLOOD SPECIMEN / Unknown Venipuncture / Unknown 09/18/2019 7:50 AM SALES OUTFITTER 09/18/2019 7:50 AM SALES OUTFITTER Narrative [facility] - 09/18/2019 8:00 AM SALES OUTFITTER Conventional Warfarin Anticoagulant Therapy: INR Reference Range: 2.0-3.0 Intensive Warfarin Anticoagulant Therapy: INR Reference Range: 2.5-3.5 Micah Barraza MD LAB - COAGULATION OR DERABLES [facility] [address] [place] [address] * IR PICC LINE INSERT (03/05/2015 9:56 AM CDT) Only the most recent of3 resultswithin the time period is included. Anatomical Region Laterality Modality Other Impressions 03/05/2015 2:57 PM CDT Impression: Removal of left double-lumen 9.5 [place] chest port under fluoroscopic guidance, as described above. Note: Keep the dressing dry for 5 days. This report was approved by Won Shirley on 03/05/2015 2:48 PM . I, Dr. ALEJANDRO RODRIGUEZ M.D. have personally reviewed and interpreted this examination/study. This report was electronically signed by ALEJANDRO RODRIGUEZ M.D. on 03/05/2015 2:57 PM . Narrative 03/05/2015 2:57 PM CDT History: This is a 55-year-old female with a history of renal cell carcinoma who is now completed chemotherapy and is in total remission. She presents for chest port removal. Operators:Bahman LOPEZ , ERIC Physician Tunnel Inspector Anesthesia: 1. Local anesthesia - 20 ml of one percent lidocaine with epinephrine 2. Intravenous Conscious Sedation (Versed 2 mg and Fentanyl 100 mcg). Procedure: Removal of left double-lumen 9.5 [place] chest port, under fluoroscopic guidance. Duration of the procedure: Appx 20 minutes. Fluoroscopy time: 0.2 minutes. Procedure in detail: The procedure, risks and possible complications were explained to the patient in detail, and an informed consent was obtained. The patient was placed supine on the angiographic table. The left neck and upper chest were prepped and draped in the usual sterile manner. A skin lifter bacon film of chest was obtained, which demonstrated a double left chest port with intact catheter imaging at the cavoatrial junction. The patient received Intravenous Versed and Fentanyl for conscious sedation. A qualified radiology nurse monitored the patient?s vital signs throughout the procedure. Following the local administration of 1% lidocaine, a skin incision was made over the previous incisional scar. Using blunt and sharp dissection technique, the port was removed along with the catheter in its entire length, under fluoroscopic guidance. The wound was irrigated with saline and the incision was then closed with a 3-0 and 4-0 vicryl sutures in layers. Sterile dressing was applied. A final film was taken, which did not show any residual fragment/catheter. The patient tolerated the procedure and there were no immediate complications. The patient was transferred in stable condition. Procedure Note Alejandro Rodriguez MD - 02/09/2018 History: This is a 55-year-old female with a history of renalcell carcinoma who is now completed chemotherapy and is in totalremission. She presents for chest port removal. Operators:Bahman LOPEZ , IR Physician Tunnel Inspector Anesthesia: 1. Local anesthesia - 20 ml of one percent lidocaine with epinephrine 2. Intravenous Conscious Sedation (Versed 2 mg and Fentanyl 100 mcg). Procedure: Removal of left double-lumen 9.5 [place] chest port, underfluoroscopic guidance. Duration of the procedure: Appx 20 minutes. Fluoroscopy time: 0.2 minutes. Procedure in detail: The procedure, risks and possible complications wereexplained to the patient in detail, and an informed consent was obtained.The patient was placed supine on the angiographic table. The left neck and upper chest were prepped and draped in the usual sterilemanner. A skin lifter bacon film of chest was obtained, which demonstrated a doubleleft chest port with intact catheter imaging at the cavoatrial junction. The patient received Intravenous Versed and Fentanyl for conscioussedation. A qualified radiology nurse monitored the patient?s vital signsthroughout the procedure. Following the local administration of 1% lidocaine, a skin incision wasmade over the previous incisional scar. Using blunt and sharp dissectiontechnique, the port was removed along with the catheter in its entirelength, under fluoroscopic guidance. The wound was irrigated with saline and the incision was then closed witha 3-0 and 4-0 vicryl sutures in layers. Sterile dressing was applied. Afinal film was taken, which did not show any residual fragment/catheter. The patient tolerated the procedure and there were no immediatecomplications. The patient was transferred in stable condition. IMPRESSION Impression: Removal of left double-lumen 9.5 [place] chest port underfluoroscopic guidance, as described above. Note: Keep the dressing dry for 5 days. This report was approved by Won Shirley on 03/05/2015 2:48PM . IDr. ALEJANDRO M.D. have personally reviewed and interpreted thisexamination/study. This report was electronically signed by ALEJANDRO RODRIGUEZ M.D. on03/05/2015 2:57 PM . Wai Tse MD IR ORDERABLES * IR CENTRAL LINE REMOVAL (03/05/2015 9:56 AM CDT) Anatomical Region Laterality Modality Other Impressions 03/05/2015 2:57 PM CDT Impression: Removal of left double-lumen 9.5 [place] chest port under fluoroscopic guidance, as described above. Note: Keep the dressing dry for 5 days. This report was approved by Won Shirley on 03/05/2015 2:48 PM . I, Dr. ALEJANDRO RODRIGUEZ M.D. have personally reviewed and interpreted this examination/study. This report was electronically signed by ALEJANDRO RODRIGUEZ M.D. on 03/05/2015 2:57 PM . Narrative 03/05/2015 2:57 PM CDT History: This is a 55-year-old female with a history of renal cell carcinoma who is now completed chemotherapy and is in total remission. She presents for chest port removal. Operators:Bahman LOPEZ , IR Physician Tunnel Inspector Anesthesia: 1. Local anesthesia - 20 ml of one percent lidocaine with epinephrine 2. Intravenous Conscious Sedation (Versed 2 mg and Fentanyl 100 mcg). Procedure: Removal of left double-lumen 9.5 [place] chest port, under fluoroscopic guidance. Duration of the procedure: Appx 20 minutes. Fluoroscopy time: 0.2 minutes. Procedure in detail: The procedure, risks and possible complications were explained to the patient in detail, and an informed consent was obtained. The patient was placed supine on the angiographic table. The left neck and upper chest were prepped and draped in the usual sterile manner. A skin lifter bacon film of chest was obtained, which demonstrated a double left chest port with intact catheter imaging at the cavoatrial junction. The patient received Intravenous Versed and Fentanyl for conscious sedation. A qualified radiology nurse monitored the patient?s vital signs throughout the procedure. Following the local administration of 1% lidocaine, a skin incision was made over the previous incisional scar. Using blunt and sharp dissection technique, the port was removed along with the catheter in its entire length, under fluoroscopic guidance. The wound was irrigated with saline and the incision was then closed with a 3-0 and 4-0 vicryl sutures in layers. Sterile dressing was applied. A final film was taken, which did not show any residual fragment/catheter. The patient tolerated the procedure and there were no immediate complications. The patient was transferred in stable condition. Procedure Note Alejandro Rodriguez MD - 02/09/2018 History: This is a 55-year-old female with a history of renalcell carcinoma who is now completed chemotherapy and is in totalremission. She presents for chest port removal. Operators:Bahman LOPEZ , IR Physician Tunnel Inspector Anesthesia: 1. Local anesthesia - 20 ml of one percent lidocaine with epinephrine 2. Intravenous Conscious Sedation (Versed 2 mg and Fentanyl 100 mcg). Procedure: Removal of left double-lumen 9.5 [place] chest port, underfluoroscopic guidance. Duration of the procedure: Appx 20 minutes. Fluoroscopy time: 0.2 minutes. Procedure in detail: The procedure, risks and possible complications wereexplained to the patient in detail, and an informed consent was obtained.The patient was placed supine on the angiographic table. The left neck and upper chest were prepped and draped in the usual sterilemanner. A skin lifter bacon film of chest was obtained, which demonstrated a doubleleft chest port with intact catheter imaging at the cavoatrial junction. The patient received Intravenous Versed and Fentanyl for conscioussedation. A qualified radiology nurse monitored the patient?s vital signsthroughout the procedure. Following the local administration of 1% lidocaine, a skin incision wasmade over the previous incisional scar. Using blunt and sharp dissectiontechnique, the port was removed along with the catheter in its entirelength, under fluoroscopic guidance. The wound was irrigated with saline and the incision was then closed witha 3-0 and 4-0 vicryl sutures in layers. Sterile dressing was applied. Afinal film was taken, which did not show any residual fragment/catheter. The patient tolerated the procedure and there were no immediatecomplications. The patient was transferred in stable condition. IMPRESSION Impression: Removal of left double-lumen 9.5 [place] chest port underfluoroscopic guidance, as described above. Note: Keep the dressing dry for 5 days. This report was approved by Won Shirley on 03/05/2015 2:48PM . IDr. ALEJANDRO M.D. have personally reviewed and interpreted thisexamination/study. This report was electronically signed by ALEJANDRO RODRIGUEZ M.D. on03/05/2015 2:57 PM . Wai Tse MD IR ORDERABLES * CULTURE BLOOD (01/03/2015 9:55 PM SALES OUTFITTER) Only the most recent of35 resultswithin the time period is included. Culture Blood No Growth at 5 days [facility] Blood specimen (specimen) BLOOD SPECIMEN / Unknown 01/03/2015 9:55 PM SALES OUTFITTER 01/03/2015 10:05 PM SALES OUTFITTER Narrative [facility] - 01/08/2015 10:15 PM SALES OUTFITTER Draw 15 minutes after Culture 1 from a different site Specimen Type->Blood Wai Tse MD LAB - MICROBIOLOGY O RDERABLES Performing Organization Address [facility] Co de Phone Number [address] [phone] * PTT SLU (01/03/2015 11:36 AM SALES OUTFITTER) Only the most recent of24 resultswithin the time period is included. APTT 26.1 23.0 - 38.4 Seconds [facility] Comment:Suggested therapeuti c range for full dose I.V. heparin therapy for venous thromboembolism is 66.0-91.0 seconds. Blood specimen (specimen) BLOOD SPECIMEN / Unknown 01/03/2015 11:36 AM SALES OUTFITTER 01/03/2015 11:37 AM SALES OUTFITTER Narrative [facility] - 01/03/2015 11:58 AM SALES OUTFITTER Is patient on Heparin, Argatroban or Dabigatran?->N Wai Tse MD LAB - COAGULATION OR DERABLES Performing Organization Address [facility]/ZIP Co de Phone Number [address] [phone] * PHOSPHORUS BLOOD (01/03/2015 11:36 AM SALES OUTFITTER) Only the most recent of61 resultswithin the time period is included. Phosphorus 3.8 2.3 - 4.7 mg/dL [facility] Blood specimen (specimen) BLOOD SPECIMEN / Unknown 01/03/2015 11:36 AM SALES OUTFITTER 01/03/2015 1:39 PM SALES OUTFITTER Wai Tse MD LAB - CHEMISTRY HELENA LANDA Performing Organization Address [facility] Co de Phone Number [address] [phone] * (ABNORMAL) BILIRUBIN DIRECT (12/06/2014 10:11 AM SALES OUTFITTER) Only the most recent of21 resultswithin the time period is included. Bilirubin Conjugated 0.6(H) 0.0 - 0.5 mg/dL [facility] Bilirubin Unconjugated 2.2 Unconjugated Bilirubin is a calculated value: Reference ranges have not been established. mg/dL [facility] Blood specimen (specimen) BLOOD SPECIMEN / Unknown 12/06/2014 10:11 AM SALES OUTFITTER 12/06/2014 10:26 AM SALES OUTFITTER Wai Tse MD LAB - CHEMISTRY HELENA LANDA Performing Organization Address [facility] de Phone Number [address] [phone] * CULTURE URINE (12/06/2014 5:27 AM SALES OUTFITTER) Only the most recent of3 resultswithin the time period is included. Culture Urine Greater than or Equal to 10,000 CFU/ML Normal Urogenital/ Skin Candy at 48 Hours [facility] Comment: Urine specimen (specimen) URINE SPECIMEN OBTAINED BY CLEAN CATCH PROCEDURE / Unknown 12/06/2014 5:27 AM SALES OUTFITTER 12/06/2014 5:31 AM SALES OUTFITTER Narrative [facility] - 12/08/2014 10:31 AM SALES OUTFITTER Specimen Type->Urine Wai Tse MD LAB - MICROBIOLOGY O RDERABLES Performing Organization Address [facility] Co de Phone Number [address] [phone] * URIC ACID BLOOD (09/25/2014 12:11 PM SALES OUTFITTER) Only the most recent of3 resultswithin the time period is included. Uric Acid 5.7 2.6 - 7.2 mg/dL [facility] Blood specimen (specimen) BLOOD SPECIMEN / Unknown 09/25/2014 12:11 PM SALES OUTFITTER 09/25/2014 12:29 PM SALES OUTFITTER Wai Tse MD LAB - CHEMISTRY HELENA LANDA [address] [phone] * IR CENTRAL VENOUS CATH CHECK (08/04/2014 10:04 AM CDT) Anatomical Region Laterality Modality Other Impressions 08/08/2014 4:25 PM CDT Impression: Probable fibrinous sheath at tip of catheter. Dr. BEEBE reviewed the fluoroscopy films with me and was in agreement. I discussed with the team the possibilities including removing catheter and port and replacing with a new port and catheter. Stripping the fibrin sheath via of femoral stick. Or simply continuing to use the port for infusion and blood draws were needed the venous puncture at a separate site. This report was approved by Won Shirley on 08/07/2014 2:23 PM . I, Dr. ALEJANDRO RODRIGUEZ M.D. have personally reviewed and interpreted this examination/study. This report was electronically signed by ALEJANDRO RODRIGUEZ M.D. on 08/08/2014 4:25 PM . Narrative 08/08/2014 4:25 PM CDT Clinical History: This is a 54-year-old female with renal cell carcinoma being treated with chemotherapy who presents for port check. Reportedly there has been no difficulty with transfusion however drawing of blood has been increasingly difficult to the point of unobtainable. Procedure: PORT Check Operators: Bahman LOPEZ , IR Physician Tunnel Inspector, Technique: The patient was placed in the supine position on the angiographic table. A termite control service representative image was recorded and placed in the medical record. The skin over the right neck and right chest were sterilely prepped and draped using maximum sterile barium precautions. The port waseasily accessed. 10ml of radiographic contrast was injected under fluoroscopic guidance.The port and catheter were noted to be in proper position . However, contrast was noted not to flow freely distally from the tip of the catheter but to reflux up around the catheter indicating a probable one way valve created by a fibrinous sheath. The port was flushed with normal saline followed my hepflush. The patient tolerated the procedure well and went to the recovery room in unchanged condition. Condition: Stable Complications: None Medications: None Specimens: None Fluoroscopy time: 1.0 minutes Estimated blood loss: less than 5 cc. Procedure Note Alejandro Rodriguez MD - 02/09/2018 Clinical History: This is a 54-year-old female with renal cell carcinoma being treated withchemotherapy who presents for port check. Reportedly there has been nodifficulty with transfusion however drawing of blood has been increasinglydifficult to the point of unobtainable. Procedure: PORT Check Operators: Bahman LOPEZ , IR Physician Tunnel Inspector, Technique: The patient was placed in the supine position on the angiographic table. Arepresentative image was recorded and placed in the medical record. Theskin over the right neck and right chest were sterilely prepped and drapedusing maximum sterile barium precautions. The port waseasily accessed. 10ml of radiographic contrast was injectedunder fluoroscopic guidance.The port and catheter were noted to be inproper position . However, contrast was noted not to flow freely distallyfrom the tip of the catheter but to reflux up around the catheter indicating a probable one way valve createdby a fibrinous sheath. The port was flushed with normal saline followed my hepflush. The patient tolerated the procedure well and went to the recovery room inunchanged condition. Condition: Stable Complications: None Medications: None Specimens: None Fluoroscopy time: 1.0 minutes Estimated blood loss: less than 5 cc. IMPRESSION Impression: Probable fibrinous sheath at tip of catheter. Dr. Greeneviewed the fluoroscopy films with me and was in agreement. I discussed with the team the possibilities including removing catheterand port and replacing with a new port and catheter. Stripping the fibrinsheath via of femoral stick. Or simply continuing to use the port forinfusion and blood draws were needed the venous puncture at a separate site. This report was approved by Won Shirley on 08/07/2014 2:23PM . I, Dr. ALEJANDRO RODRIGUEZ M.D. have personally reviewed and interpreted thisexamination/study. This report was electronically signed by ALEJANDRO RODRIGUEZ M.D. on08/08/2014 4:25 PM . Wai Tse MD IR ORDERABLES * CYTOMEGALOVIRUS DNA RT-PCR QUANT (07/03/2014 7:55 PM CDT) Cytomegalovirus DNA Quantitative PCR Specimen: 1 ml Plasma Reference: [id number] Test: Cytomegalovirus Detection (Quantitative) RESULT Not Detected Reference Range Not Detected INTERPRETATION The quantitative CMV DNA PCR determination was performed and is reported in IU/ml. CMV DNA, if present was below the level of detection. COMMENT The CMV DNA analysis utilized real-time PCR, and is reported as Not Detected/Detected/ IU/ml (quantity), or > 300,000 IU/ml. The analytic sensitivity of the assay is 170 IU/ml (95% of samples with this CMV DNA level were detected however values < 170 IU/ml may be sporadically detected). Specimens with CMV detected but less than 170 IU/ml are reported as Detected (< 170 IU/ml). The linear range is from 170 IU/ml to 300,000 IU/ml. Values greater than 300,000 IU/ml are reported as > 300,000 IU/ml. The detection/quantita tion of CMV DNA in serum, plasma, or urine is based on the isolation of CMV DNA followed by real-time PCR in the presence of a reference standard DNA. The standard ensures that DNA was isolated, and that no general significant inhibitors of the real-time PCR process were present. Absolute CMV values or breakpoints for symptomatic disease have not been established and appear to be different between patient populations and laboratories. Therefore, it is important to monitor patients and to follow rises and/or falls in the level of CMV in multiple blood specimens. This test was developed and its performance characteristics determined by the [facility] at [facility]. It has not been cleared or approved by the U.S. Food and Drug Administration. The FDA has determined that such clearance or approval is not necessary. This test is used for clinical purposes. It should not be regarded as investigational or for research. This laboratory is certified under the Clinical Laboratory Improvement Amendments of 1988 (CLIA-88) as qualified to perform high complexity clinical laboratory testing. Test performed at [facility], [facility] [address] This case has been personally reviewed and interpreted by the attending (teaching) pathologist. Final Diagnosis performed by Sachin Hollis PHD. Electronically signed 07/06/2014 [facility] Blood specimen (specimen) BLOOD SPECIMEN / Unknown 07/03/2014 7:55 PM CDT 07/03/2014 8:58 PM CDT Wai Tse MD LAB - MICROBIOLOGY O RDERABLES [facility] * (ABNORMAL) DIFFERENTIAL MANUAL (05/04/2014 1:39 PM CDT) Only the most recent of2 resultswithin the time period is included. WBC (corrected for NRBC) 4.2 10 3/uL [facility] Total Cell Count 100 [facility] Neutrophils Absolute Manual 2.27 1.60 - 7.00 10 3/uL [facility] Comment:(BANDS+SEGS) x WBC = NEUT # (ANC) Lymphocyte Absolute Manual 1.39 0.80 - 2.90 10 3/uL [facility] Monocytes Absolute Manual 0.21 0.14 - 0.66 10 3/uL [facility] Eosinophils Absolute Manual 0.25(H) 0.00 - 0.22 10 3/uL [facility] Basophil Absolute Manual 0.08(H) 0.00 - 0.06 10 3/uL [facility] Neutrophil % Manual 54 30 - 60 % [facility] Lymphocyte % Manual 33 20 - 45 % [facility] Monocytes % Manual 5 2 - 10 % [facility] Eosinophils % Manual 6 1 - 6 % [facility] Basophils % Manual 2 0 - 3 % [facility] Platelet Estimate Adequate Adequate [facility] RBC Morphology Normal [facility] Blood specimen (specimen) BLOOD SPECIMEN / Unknown 05/04/2014 1:39 PM CDT 05/04/2014 2:28 PM CDT Wai Tse MD LAB - HEMATOLOGY ORD ERABLES [place] [id number] [address] [phone] * MRI ABDOMEN WWO CONTRAST (04/17/2014 10:59 AM CDT) Anatomical Region Laterality Modality Abdomen Other Impressions 04/17/2014 2:29 PM CDT IMPRESSION: 1. Status post right adrenalectomy and right nephrectomy. No evidence of residual or recurrent neoplasia. This report was dictated by Carrillo Willoughby MD (radiology scheduler). This report was approved by Carrillo Willoughby M.D. on 04/17/2014 2:29 PM . I, Dr. KUN CRANDALL M.D. have personally reviewed and interpreted this examination/study. This report was electronically signed by KUN CRANDALL M.D. on 04/17/2014 2:29 PM . Narrative 04/17/2014 2:29 PM CDT EXAMINATION: Magnetic resonance imaging of the abdomen without and with contrast DATE: 04/17/2014 HISTORY: Metastatic right renal cell carcinoma, status post right nephrectomy and chemotherapy. TECHNIQUE: Magnetic resonance imaging of the abdomen was performed before and after the uneventful administration of intravenous gadolinium contrast 14 mL Multihance according to standard protocol COMPARISON: CT abdomen dated 12/12/2013. FINDINGS: There is a 2 cm simple cyst in the posterior right hepatic lobe. Several additional smaller cysts are noted in the liver. The gallbladder appears normal. The spleen and pancreas are normal. The right kidney and right adrenal gland are absent. The left adrenal gland appears normal. There is mild compensatory enlargement of the left kidney which appears normal. The stomach and visualized bowel loops appear normal. No intraperitoneal free fluid is seen. The aorta is atherosclerotic and tortuous. No lymphadenopathy is detected. There is focal thickening of the nelson of the right hemidiaphragm just posterior to the inferior vena cava. The urinary bladder and uterus appear normal. Artifact from a left hip replacement is noted. There is marked enhancement of the right hip joint synovium which is likely secondary to severe arthritis as seen on prior CT. Procedure Note Carrillo Willoughby MD - 02/09/2018 EXAMINATION: Magnetic resonance imaging of the abdomen without and withcontrast DATE: 04/17/2014 HISTORY: Metastatic right renal cell carcinoma, status post rightnephrectomy and chemotherapy. TECHNIQUE: Magnetic resonance imaging of the abdomen was performed beforeand after the uneventful administration of intravenous gadolinium ssrvsyva70 mL Multihance according to standard protocol COMPARISON: CT abdomen dated 12/12/2013. FINDINGS: There is a 2 cm simple cyst in the posterior right hepatic lobe. Severaladditional smaller cysts are noted in the liver. The gallbladder appearsnormal. The spleen and pancreas are normal. The right kidney and right adrenal gland are absent. The left adrenalgland appears normal. There is mild compensatory enlargement of the leftkidney which appears normal. The stomach and visualized bowel loops appear normal. No intraperitonealfree fluid is seen. The aorta is atherosclerotic and tortuous. No lymphadenopathy is detected.There is focal thickening of the nelson of the right hemidiaphragm justposterior to the inferior vena cava. The urinary bladder and uterus appear normal. Artifact from a left hipreplacement is noted. There is marked enhancement of the right hip jointsynovium which is likely secondary to severe arthritis as seen on priorCT. IMPRESSION IMPRESSION: 1. Status post right adrenalectomy and right nephrectomy. No evidence ofresidual or recurrent neoplasia. This report was dictated by Carrillo Willoughby MD (radiology scheduler). This report was approved by Carrillo Willoughby M.D. on 04/17/2014 2:29 PM . I, Dr. KUN CRANDALL M.D. have personally reviewed and interpreted thisexamination/study. This report was electronically signed by KUN CRANDALL M.D. on 04/17/20142:29 PM . Wai Tse MD MR ORDERABLES * (ABNORMAL) CREATININE BLOOD - POCT (IP) [facility] (04/17/2014) Creatinine POCT 1.04 0.3 - 1.3 mg/dL [facility] eGFR POCT 58(A) 60 ml/min [facility] 04/17/2014 Mikael Provider LAB - POINT OF CA RE ORDERABLES [facility] * (ABNORMAL) URINALYSIS W/MICROSCOPIC NO CULTURE (03/03/2014 3:28 PM CDT) Only the most recent of4 resultswithin the time period is included. Color UA Yellow Straw, Yellow, Colorless, Light Yellow [facility] Clarity UA Clear Clear [facility] Specific [place] UA 1.015 1.001 - 1.030 [facility] pH UA 5.0 5.0 - 8.0 [facility] Protein UA Trace(A) <=20 mg/dL [facility] Glucose UA Negative Negative mg/dL [facility] Ketone UA Negative Negative mg/dL [facility] Bilirubin UA Negative Negative mg/dL [facility] Blood UA Negative Negative [facility] Nitrite UA Negative Negative [facility] Leukocyte Esterase Negative Negative [facility] Urobilinogen UA <2.0 <2.0 mg/dL [facility] RBC UA 2 0 - 8 /HPF [facility] WBC UA 3(H) 0 - 2 /HPF [facility] Bacteria UA Occasional Rare, Occasional, None /HPF [facility] Squamous Epithelial Cells UA 8(H) 0 - 1 /HPF [facility] Mucus UA Many(A) None /LPF [facility] Hyaline Casts UA 10(H) 0 - 2 /LPF [facility] Urine specimen (specimen) URINE SPECIMEN OBTAINED BY CLEAN CATCH PROCEDURE / Unknown 03/03/2014 3:28 PM CDT 03/03/2014 5:03 PM CDT Wai Tse MD LAB - URINALYSIS ORD ERABLES Performing Organization Address City/State/[facility] Co de Phone Number [address] [phone] * XR CHEST 1VW (01/02/2014 3:58 PM SALES OUTFITTER) Anatomical Region Laterality Modality Chest Other Impressions 01/02/2014 6:31 PM SALES OUTFITTER Impression: Left internal jugular Port-A-Cath ending in the superior vena cava. Minimal bilateral pleural effusions. Known bilateral pulmonary nodules not well visualized. Report dictated by Wendy Garcia M.D. (resident). I, Dr. YUDY TIJERINA M.D. have personally reviewed and interpreted this examination/study. This report was electronically signed by YUDY TIJERINA M.D. on 01/02/2014 6:31 PM . Narrative 01/02/2014 6:31 PM SALES OUTFITTER Exam: Chest, AP. Date: 01/02/2014 4:00 PM History: Line placement. Findings: Comparison is made to the prior study of 08/02/2013. A left internal jugular approach Port-A-Cath ends in the superior vena cava. Small bilateral pleural effusions are decreased. Multiple bilateral pulmonary nodules demonstrated on outside CT of 05/16/2013 are again not well visualized. No pneumothorax is seen. The thoracic aorta is mildly tortuous. The cardiac silhouette is within normal limits. Procedure Note Yudy Tijerina MD - 02/09/2018 Exam: Chest, AP. Date: 01/02/2014 4:00 PM History: Line placement. Findings: Comparison is made to the prior study of 08/02/2013. A left internaljugular approach Port-A-Cath ends in the superior vena cava. Small bilateral pleural effusions are decreased. Multiple bilateralpulmonary nodules demonstrated on outside CT of 05/16/2013 are again notwell visualized. No pneumothorax is seen. The thoracic aorta is mildlytortuous. The cardiac silhouette is within normal limits. IMPRESSION Impression: Left internal jugular Port-A-Cath ending in the superior vena cava. Minimal bilateral pleural effusions. Known bilateral pulmonary nodules not well visualized. Report dictated by Wendy Garcia M.D. (resident). I, Dr. YUDY TIJERINA M.D. have personally reviewed and interpreted thisexamination/study. This report was electronically signed by YUDY TIJERINA M.D. on 01/02/20146:31 PM . Wai Tse MD DIAGNOSTIC IMAGING O RDERABLES * CLOSTRIDIUM DIFFICILE GDH AG + TOXIN A+B (10/28/2013 11:30 AM SALES OUTFITTER) Only the most recent of3 resultswithin the time period is included. C difficile Toxin Assay NEGATIVE FOR CLOSTRIDIUM DIFFICILE ANTIGEN AND TOXINS. REFERENCE RANGE = NEGATIVE. [facility] Stool specimen (specimen) STOOL SPECIMEN / Unknown 10/28/2013 11:30 AM SALES OUTFITTER 10/28/2013 12:38 PM SALES OUTFITTER Narrative [facility] - 10/29/2013 12:13 PM SALES OUTFITTER Specimen Type->Feces Wai Tse MD LAB - MICROBIOLOGY O RDERABLES Performing Organization Address [facility] Co de Phone Number [address] [phone] * LAB HISTORICAL RESULTS-ONBASE (09/18/2013) Only the most recent of3 resultswithin the time period is included. 09/18/2013 Narrative [facility] - 09/26/2013 2:29 PM SALES OUTFITTER Historical Provider LAB - CHEMISTRY O RDERAASTER Performing Organization Address [facility] Co de Phone Number [facility] [address] * VAS BILATERAL VENOUS DUPLEX LE (08/13/2013 1:50 PM CDT) Only the most recent of2 resultswithin the time period is included. Anatomical Region Laterality Modality Other Wai Tse MD VASCULAR LAB ORDERAB LES * SODIUM URINE RANDOM (08/01/2013 2:30 PM CDT) Sodium Urine 22 mmol/L [facility] Comment: REFERENCE RANGE: NONE ESTABLISHED FOR RANDOM URINE SPECIMENS. Urine specimen (specimen) URINE SPECIMEN OBTAINED BY CLEAN CATCH PROCEDURE / Unknown 08/01/2013 2:30 PM CDT 08/01/2013 3:03 PM CDT Wai Tse MD LAB - URINE CHEMISTR Y ORDERABLES Performing Organization Address [facility] [place] [address], [facility] [phone] * CREATININE URINE RANDOM (08/01/2013 2:30 PM CDT) Creatinine Random Urine 164 mg/dL [facility] Comment: REFERENCE RANGE: NONE ESTABLISHED FOR RANDOM URINE SPECIMENS. Urine specimen (specimen) URINE SPECIMEN OBTAINED BY CLEAN CATCH PROCEDURE / Unknown 08/01/2013 2:30 PM CDT 08/01/2013 3:03 PM CDT Wai Tse MD LAB - URINE CHEMISTR Y ORDERABLES [facility] [address] [phone] * IR RICK CATH INSERT (07/28/2013 10:47 AM CDT) Anatomical Region Laterality Modality Other Impressions 07/28/2013 3:11 PM CDT Impression: Placement of a double lumen 9.5 [place] by 30 cm chest port, via left internal jugular vein, under fluoroscopic guidance, as described above. Note: Keep the dressing clean and dry for 7 days. Recommended port access after 7 days to minimize infection and allow better healing. Dr. Dodge was present and performed/supervised the entire procedure. This report was electronically signed by CHRISTOPHER DODGE MD on 07/28/2013 3:11 PM . Narrative 07/28/2013 3:11 PM CDT History: 53-year-old female with past medical history of metastatic renal cell carcinoma, history of breast cancer status post lumpectomy and right axillary lymph node dissection, XRT and tamoxifen presents to interventional radiology for chest port placement for chemotherapy. Operators: 1. Dr. Christopher Dodge, Attending Physician 2. Dr. Wai Wayne, Resident Physician Anesthesia: 1. Local anesthesia - 20 ml of 1 % lidocaine 2. Intravenous Conscious Sedation (Versed 1 mg and Fentanyl 50 mcg). Procedure: 1. Ultrasound-guided access of left internal jugular vein. 2. Creation of subcutaneous pocket and subcutaneous tunnel on the left chest. 3. Placement of dual-lumen 9.5 [place] chest port via left internal jugular vein approach under fluoroscopic monitoring. Duration of the procedure: Appx 60 minutes. Fluoroscopy time: 2.5 minutes. Procedure in detail: The procedure, risks and possible complications were explained to the patient in detail, and an informed consent was obtained. The patient was placed supine on the angiographic table. The patient was given 1 g of Ancef as prophylactic antibiotic. The left neck and upper chest were prepped and draped in the usual sterile manner. A skin lifter bacon film of chest was obtained, which demonstrated no acute abnormalities. The patient received Intravenous Versed and Fentanyl for conscious sedation. A qualified radiology nurse monitored the patient?s vital signs throughout the procedure. Limited ultrasound of left lower neck demonstrated a patent and compressible internal jugular vein. A huang scale image was documented. After instillation with 1 % local lidocaine, a small incision was made in the left lower neck. Under real time ultrasound guidance, using a micropuncture needle, the left internal jugular vein was accessed. The needle entry was documented. Following a series of exchanges, a 0.035 wire was advanced through the right atrium into the IVC.? Following administration of 1 % local lidocaine anesthesia, a skin incision was made over the left upper chest and a subcutaneous pocket was created using blunt and sharp dissection techniques. Using a tunneling device, the catheter was tunneled from the pocket to the venotomy site in the left neck, after infiltrating 1% local lidocaine anesthesia along the tunnel. A 9.5 [place] peel-away sheath and dilator combination was advanced over the guidewire into the right atrium, under fluoroscopic guidance. The guidewire and the dilator were removed and the catheter was advanced through the peel-away sheath into the right atrium with the patient suspending respiration. The peel-away was then removed. The catheter was cut to 30 cm in length and was connected to port and was placed in the pocket. The port was accessed, aspirated and flushed easily. Appropriate amount of heparin and was placed in the port as per the protocol. The pocket was closed in layers using 3.0 and 4.0 vicryl suture materials. The neck incision was closed with dermabond. A sterile dressing was applied. A final film was obtained, which revealed the port in left chest and the tip of the catheter in right atrium in good position with no kink along the course of the catheter. The patient tolerated the procedure well was transferred in stable condition. There were no immediate complications associated with the procedure. Procedure Note Christopher Dodge MD - 02/10/2018 History: 53-year-old female with past medical history of metastatic renalcell carcinoma, history of breast cancer status post lumpectomy and rightaxillary lymph node dissection, XRT and tamoxifen presents tointerventional radiology for chest port placement for chemotherapy. Operators: 1. Dr. Christopher Dodge, Attending Physician 2. Dr. Wai Wayne, Resident Physician Anesthesia: 1. Local anesthesia - 20 ml of 1 % lidocaine 2. Intravenous Conscious Sedation (Versed 1 mg and Fentanyl 50 mcg). Procedure: 1. Ultrasound-guided access of left internal jugular vein. 2. Creation of subcutaneous pocket and subcutaneous tunnel on the leftchest. 3. Placement of dual-lumen 9.5 [place] chest port via left internaljugular vein approach under fluoroscopic monitoring. Duration of the procedure: Appx 60 minutes. Fluoroscopy time: 2.5 minutes. Procedure in detail: The procedure, risks and possible complications wereexplained to the patient in detail, and an informed consent was obtained.The patient was placed supine on the angiographic table. The patient wasgiven 1 g of Ancef as prophylactic antibiotic. The left neck and upper chest were prepped anddraped in the usual sterile manner. A skin lifter bacon film of chest was obtained,which demonstrated no acute abnormalities. The patient received Intravenous Versed and Fentanyl for conscioussedation. A qualified radiology nurse monitored the patient?s vital signsthroughout the procedure. Limited ultrasound of left lower neck demonstrated a patent andcompressible internal jugular vein. A huang scale image was documented.After instillation with 1 % local lidocaine, a small incision was made inthe left lower neck. Under real time ultrasound guidance, using a micropuncture needle, the left internaljugular vein was accessed. The needle entry was documented. Following aseries of exchanges, a 0.035 wire was advanced through the right atriuminto the IVC.? Following administration of 1 % local lidocaine anesthesia, a skinincision was made over the left upper chest and a subcutaneous pocket wascreated using blunt and sharp dissection techniques. Using a tunnelingdevice, the catheter was tunneled from the pocket to the venotomy site in the left neck, after infiltrating 1% locallidocaine anesthesia along the tunnel. A 9.5 [place] peel-away sheath anddilator combination was advanced over the guidewire into the right atrium,under fluoroscopic guidance. The guidewire and the dilator were removed and the catheter was advancedthrough the peel-away sheath into the right atrium with the patientsuspending respiration. The peel-away was then removed. The catheter wascut to 30 cm in length and was connected to port and was placed in the pocket. The port was accessed, aspiratedand flushed easily. Appropriate amount of heparin and was placed in theport as per the protocol. The pocket was closed in layers using 3.0 and4.0 vicryl suture materials. The neck incision was closed with dermabond. A sterile dressing was applied. A final film was obtained, which revealed the port in left chest and thetip of the catheter in right atrium in good position with no kink alongthe course of the catheter. The patient tolerated the procedure well wastransferred in stable condition. There were no immediate complications associated with the procedure. IMPRESSION Impression: Placement of a double lumen 9.5 [place] African by 30 cm chest port,via left internal jugular vein, under fluoroscopic guidance, as describedabove. Note: Keep the dressing clean and dry for 7 days. Recommended port accessafter 7 days to minimize infection and allow better healing. Dr. Dodge was present and performed/supervised the entire procedure. This report was electronically signed by CHRISTOPHER DODGE MD on 07/28/20133:11 PM . Wai Tse MD IR ORDERABLES * IR US GUIDE VASCULAR ACCESS (07/28/2013 10:47 AM CDT) Anatomical Region Laterality Modality Other Impressions 07/28/2013 3:11 PM CDT Impression: Placement of a double lumen 9.5 [place] African by 30 cm chest port, via left internal jugular vein, under fluoroscopic guidance, as described above. Note: Keep the dressing clean and dry for 7 days. Recommended port access after 7 days to minimize infection and allow better healing. Dr. Dodge was present and performed/supervised the entire procedure. This report was electronically signed by CHRISTOPHER DODGE MD on 07/28/2013 3:11 PM . Narrative 07/28/2013 3:11 PM CDT History: 53-year-old female with past medical history of metastatic renal cell carcinoma, history of breast cancer status post lumpectomy and right axillary lymph node dissection, XRT and tamoxifen presents to interventional radiology for chest port placement for chemotherapy. Operators: 1. Dr. Christopher Dodge, Attending Physician 2. Dr. Wai Wayne, Resident Physician Anesthesia: 1. Local anesthesia - 20 ml of 1 % lidocaine 2. Intravenous Conscious Sedation (Versed 1 mg and Fentanyl 50 mcg). Procedure: 1. Ultrasound-guided access of left internal jugular vein. 2. Creation of subcutaneous pocket and subcutaneous tunnel on the left chest. 3. Placement of dual-lumen 9.5 [place] African chest port via left internal jugular vein approach under fluoroscopic monitoring. Duration of the procedure: Appx 60 minutes. Fluoroscopy time: 2.5 minutes. Procedure in detail: The procedure, risks and possible complications were explained to the patient in detail, and an informed consent was obtained. The patient was placed supine on the angiographic table. The patient was given 1 g of Ancef as prophylactic antibiotic. The left neck and upper chest were prepped and draped in the usual sterile manner. A skin lifter bacon film of chest was obtained, which demonstrated no acute abnormalities. The patient received Intravenous Versed and Fentanyl for conscious sedation. A qualified radiology nurse monitored the patient?s vital signs throughout the procedure. Limited ultrasound of left lower neck demonstrated a patent and compressible internal jugular vein. A huang scale image was documented. After instillation with 1 % local lidocaine, a small incision was made in the left lower neck. Under real time ultrasound guidance, using a micropuncture needle, the left internal jugular vein was accessed. The needle entry was documented. Following a series of exchanges, a 0.035 wire was advanced through the right atrium into the IVC.? Following administration of 1 % local lidocaine anesthesia, a skin incision was made over the left upper chest and a subcutaneous pocket was created using blunt and sharp dissection techniques. Using a tunneling device, the catheter was tunneled from the pocket to the venotomy site in the left neck, after infiltrating 1% local lidocaine anesthesia along the tunnel. A 9.5 [place] peel-away sheath and dilator combination was advanced over the guidewire into the right atrium, under fluoroscopic guidance. The guidewire and the dilator were removed and the catheter was advanced through the peel-away sheath into the right atrium with the patient suspending respiration. The peel-away was then removed. The catheter was cut to 30 cm in length and was connected to port and was placed in the pocket. The port was accessed, aspirated and flushed easily. Appropriate amount of heparin and was placed in the port as per the protocol. The pocket was closed in layers using 3.0 and 4.0 vicryl suture materials. The neck incision was closed with dermabond. A sterile dressing was applied. A final film was obtained, which revealed the port in left chest and the tip of the catheter in right atrium in good position with no kink along the course of the catheter. The patient tolerated the procedure well was transferred in stable condition. There were no immediate complications associated with the procedure. Procedure Note Christopher Dodge MD - 02/10/2018 History: 53-year-old female with past medical history of metastatic renalcell carcinoma, history of breast cancer status post lumpectomy and rightaxillary lymph node dissection, XRT and tamoxifen presents tointerventional radiology for chest port placement for chemotherapy. Operators: 1. Dr. Christopher Dodge, Attending Physician 2. Dr. Wai Wayne, Resident Physician Anesthesia: 1. Local anesthesia - 20 ml of 1 % lidocaine 2. Intravenous Conscious Sedation (Versed 1 mg and Fentanyl 50 mcg). Procedure: 1. Ultrasound-guided access of left internal jugular vein. 2. Creation of subcutaneous pocket and subcutaneous tunnel on the leftchest. 3. Placement of dual-lumen 9.5 [place] African chest port via left internaljugular vein approach under fluoroscopic monitoring. Duration of the procedure: Appx 60 minutes. Fluoroscopy time: 2.5 minutes. Procedure in detail: The procedure, risks and possible complications wereexplained to the patient in detail, and an informed consent was obtained.The patient was placed supine on the angiographic table. The patient wasgiven 1 g of Ancef as prophylactic antibiotic. The left neck and upper chest were prepped anddraped in the usual sterile manner. A skin lifter bacon film of chest was obtained,which demonstrated no acute abnormalities. The patient received Intravenous Versed and Fentanyl for conscioussedation. A qualified radiology nurse monitored the patient?s vital signsthroughout the procedure. Limited ultrasound of left lower neck demonstrated a patent andcompressible internal jugular vein. A huang scale image was documented.After instillation with 1 % local lidocaine, a small incision was made inthe left lower neck. Under real time ultrasound guidance, using a micropuncture needle, the left internaljugular vein was accessed. The needle entry was documented. Following aseries of exchanges, a 0.035 wire was advanced through the right atriuminto the IVC.? Following administration of 1 % local lidocaine anesthesia, a skinincision was made over the left upper chest and a subcutaneous pocket wascreated using blunt and sharp dissection techniques. Using a tunnelingdevice, the catheter was tunneled from the pocket to the venotomy site in the left neck, after infiltrating 1% locallidocaine anesthesia along the tunnel. A 9.5 [place] peel-away sheath anddilator combination was advanced over the guidewire into the right atrium,under fluoroscopic guidance. The guidewire and the dilator were removed and the catheter was advancedthrough the peel-away sheath into the right atrium with the patientsuspending respiration. The peel-away was then removed. The catheter wascut to 30 cm in length and was connected to port and was placed in the pocket. The port was accessed, aspiratedand flushed easily. Appropriate amount of heparin and was placed in theport as per the protocol. The pocket was closed in layers using 3.0 and4.0 vicryl suture materials. The neck incision was closed with dermabond. A sterile dressing was applied. A final film was obtained, which revealed the port in left chest and thetip of the catheter in right atrium in good position with no kink alongthe course of the catheter. The patient tolerated the procedure well wastransferred in stable condition. There were no immediate complications associated with the procedure. IMPRESSION Impression: Placement of a double lumen 9.5 [place] African by 30 cm chest port,via left internal jugular vein, under fluoroscopic guidance, as describedabove. Note: Keep the dressing clean and dry for 7 days. Recommended port accessafter 7 days to minimize infection and allow better healing. Dr. Dodge was present and performed/supervised the entire procedure. This report was electronically signed by CHRISTOPHER DODGE MD on 07/28/20133:11 PM . Wai Tse MD IR ORDERABLES * (ABNORMAL) CBC W/O DIFFERENTIAL (07/28/2013 9:00 AM CDT) WBC 4.9 3.5 - 10.5 10^3/uL [facility] RBC 3.79(L) 3.90 - 5.00 10^6/uL [facility] Hemoglobin 10.9(L) 12.0 - 15.5 g/dL [facility] Hematocrit 33.1(L) 35.0 - 45.0 % [facility] MCV 87.3 81.0 - 97.0 FL [facility] MCH 28.8 28.0 - 34.0 PG [facility] MCHC 32.9 32.0 - 36.0 G/DL [facility] Platelet 346 150 - 400 10^3/uL [facility] RDW 17.1(H) 11.2 - 14.8 % [facility] RDW-SD 55.0(H) 36 - 50 FL [facility] MPV 9.0(L) 9.3 - 12.8 FL [facility] Venous blood specimen (specimen) 07/28/2013 9:00 AM CDT 07/28/2013 9:15 AM CDT Narrative [facility] - 07/28/2013 10:07 AM CDT ORDERED PER POS on CLOUD ORDER Wai Tse MD LAB - HEMATOLOGY ORD ERABLES Performing Organization Address City/State/[facility] Co de Phone Number [facility] [address] [place] [address] * PATH CONSULT CLINICAL (07/07/2013 12:48 PM CDT) Pathology Consult () [facility] Comment: CLINICAL HISTORY: The patient is a 53 year-old woman with right kidney mass, status post nephrectomy. FINAL DIAGNOSIS: KIDNEY, RIGHT, RADICAL NEPHRECTOMY ([id number], A; 05/12/2013): - RENAL CELL CARCINOMA, CLEAR CELL TYPE (BRENDON'S NUCLEAR GRADE III) - LYMPHOVASCULAR INVASION IDENTIFIED - ONE OF TWO LYMPH NODES POSITIVE FOR METASTATIC CARCINOMA (1/2) - ADRENAL GLAND INVOLVED BY METASTATIC RENAL CELL CARCINOMA INTRA-AORTOCAVAL MASS, EXCISION ([id number], B): - METASTATIC RENAL CELL CARCINOMA, CLEAR CELL TYPE - FIVE OF NINE LYMPH NODES POSITIVE FOR METASTATIC CARCINOMA (5/9) LUMBAR VERTEBRAL BODY, MASS, EXCISION ([id number], C): - METASTATIC RENAL CELL CARCINOMA, CLEAR CELL TYPE MATERIALS RECEIVED: Received from [facility], [facility] [facility], [place] [address] are 29 H E stained glass slides labeled [id number] (A1 thru A18, B1 thru B10, C1) and the corresponding pathology report on Suzette Shoemaker . All material will be returned and a copy of our report will be forwarded. MICROSCOPIC DESCRIPTION: The review of the slides labeled [id number], A show a large renal mass comprised by malignant cells that have abundant cytoplasm predominantly ranging from eosinophilic and granular to clear. The tumor cell nuclei in some areas are moderately pleomorphic with large, prominent nucleoli. There is both microvascular and large vein invasion by the tumor, and by report, there is also arteriole invasion. The tumor involves the renal pelvis and the perirenal soft tissue. Metastatic tumor is also identified in the adrenal gland and in one of two lymph nodes. The review of the slides labeled [id number], B show fragments of soft tissue involved by metastatic renal cell carcinoma, clear cell type, as well as nine lymph nodes, five of which are involved by metastatic renal cell carcinoma. The review of the slide labeled [id number], C shows metastatic involvement by renal cell carcinoma, clear cell type. JUAN/MS/ The performance characteristics of all immunohistochemical and indirect immunofluorescence stains (if any) cited in this report were determined by the [facility] of [facility] in compliance with CLIA '88 regulations. Some of these tests rely on the use of analyte-specific reagents and are subject to specific labeling requirements by the FDA. Such tests were developed by the [facility] of [facility] and have not been cleared or approved by the FDA. The FDA has determined that such clearance or approval is not necessary. These tests are used for clinical purposes and should not be regarded as investigational or for research. This case has been personally reviewed and interpreted by the attending (teaching) pathologist. Final Diagnosis performed by Logan Jamil MD. Electronically signed 07/10/2013 07/07/2013 12:4 8 PM CDT 07/07/2013 12:48 PM CDT Wai Tse MD LAB - PATHOLOGY/CYTO LOGY ORDERABLES [address] [phone] Care Teams Shore Man Relationship Specialty Start Date End Date Myriam Jorgensen MD [address] [place] [address] (work) PCP - General 10/16/22
--- OUTSIDE RECORDS SUMMARY | 2024-12-17 15:35 | XMS_ITS ---
Author Organization [facility] Address [address] [place] [address] Care Team Providers Care City Recorder Name Role Phone Myriam Jorgensen MD Primary Care Provider [phone] Active Problems Problem Noted Date Diagnosed Date Gilbert syndrome 06/27/2022 Elevated liver enzymes 03/17/2021 Cancer, metastatic to lung 11/03/2019 Nonspecific abnormal electrocardiogram (ECG) (EK G) 11/03/2019 S/p nephrectomy 09/23/2019 Primary osteoarthritis of right hip 06/02/2019 Overview (03/17/2021): Added automatically from request for surgery [id number] Personal history of malignant neoplasm of breast 12/04/2014 Encounter for antineoplastic chemotherapy 2013 Malignant neoplasm of kidney excluding renal pel vis 09/25/2014 Primary malignant neoplasm 02/01/2014 Other pulmonary embolism without acute cor pulmo nale 06/17/2013 Current Oncology Plans Metastatic RCC (BEVACIZUMAB) Q21 DAYS* Plan Start Date:03/08/2021 Plan Provider:Wai Tse MD Linked Problems Malignant neoplasm of kidney excluding renal pelvis, unspecified laterality (HCC) Treatment Medications Current Day (Day 1 , Cycle 46 - Planned for 08/27/2024) Next Day (Day 1, Cycle 47 - Planned for 09/17/2024) bevacizumab-awwb (Mvasi) Infusion bevacizumab-awwb (Mvasi) 1,400 mg in 0.9% NaCl IV 156 mL infusion bevacizumab-awwb (Mvasi) 1,400 mg in 0.9% NaCl IV 156 mL infusion Past Plans ONCOLOGY TREATMENT Plan Name Start Date Discontinue Date Treatment Medications Discontinue Reason Plan Provider Cycles RENAL (NIVOLUMA B IPILIMUMA B) Q21 DAYS -> (NIVOLUMA B) Q14 DAYS 10/20/2020 03/03/2021 ipilimumab (Yervoy)ipilimuma b (Yervoy) infusion 166 mg or lessnivolumab (Opdivo) infusion Not Tolerated Eder Dumont MD 4 of 16 cycles started RENAL MET (PEMBROLI ZUMAB AXITINIB) Q21 DAYS 06/07/2020 09/22/2020 pembrolizumab (Keytruda) Infusion Not Tolerated Eder Dumont MD 4 of 6 cycles started Radiation Treatments * Plan Last Treated On Elapsed Days Fractions Treated Prescribed Fraction Dose Prescribed Total Dose #LtSCV 02/22/2023 5 of 5 3,500 cGy #RtHilum 02/22/2023 5 of 5 3,000 cGy #Mediastinu m1 07/21/2021 5 of 5 3,000 cGy Reference Point Last Treated On Elapsed Days Session Dose Total Dose [id number] 02/22/2023 600 cGy 3,000 cGy [id number] 02/22/2023 700 cGy 3,500 cGy PTV 07/21/2021 600 cGy 3,000 cGy Lifetime Dose Tracking * Chemical Lifetime Dose Automatic Entry Manual Entr y Dose Length Product 13,910.8 mGy-cm 13,910.8 mGy-cm 0 mGy-cm
== END 2024-12-17 14:51 | disposition home or self-care (01) ==
LOC: ANHIMG 14:53
PROVIDERS: PCP Family Medicine; Visit Provider Family Medicine
DX: Z12.31 Encounter for screening mammogram for malignant neoplasm of breast (principal); R92.8 Other abnormal and inconclusive findings on diagnostic imaging of breast
CPT/HCPCS: 77063; 77067

== ENCOUNTER 2025-01-05 12:10 | Outpatient (CLI) | payer OTHER, SELFPAY ==
--- NOTE | ~2025-01-05 | MMUS_ITS ---
EXAMINATION: MM diagnostic joe RT w jacquelin, US breast RT limited HISTORY: Right breast architectural distortion TECHNIQUE: Additional 3-D tomosynthesis images of the right breast were performed and synthetic 2-D i mages were generated. CAD analysis was submitted and interpreted. High resolution limited right breas t ultrasound was performed. COMPARISON: 12/17/2024, 09/05/2023, 08/16/2022 BREAST PARENCHYMAL COMPOSITION:Not Dense. There are scattered areas of fibroglandular density. FINDINGS: MAMMOGRAPHIC FINDINGS: Spot compression views confirm an area of architectural distortion at the upper, outer right breast. This has been present on multiple prior exams, though slightly more pronounced on the current exam. ULTRASOUND: There is a 4 mm ovoid parallel hypoechoic mass at the 10:00 position right breast, 5 cm from the nipp le. There is a possible focal irregular shadowing at 11:00 right breast, 4 cm from the nipple. IMPRESSION: Slightly more conspicuous/prominent architectural distortion at the upper, outer right breast, with history of prior surgery. 4 mm irregular hypoechoic focus at the 11:00 position right breast, 4 cm fr om the nipple, which measures somewhat closer to the nipple than the area of distortion. Recommend east MRI to further evaluate for suspicious enhancing lesions. Ultrasound-guided biopsy of a 4 mm sha dowing lesion at 11:00 position should be considered regardless of MRI findings. BI-RADS category 4, suspicious findings. Reviewed, dictated and finalized at location . ARCHER IMPRESSION: Slightly more conspicuous/prominent architectural distortion at the upper, out er right breast, with history of prior surgery. 4 mm irregular hypoechoic focus at the 11:00 position right breast, 4 cm from the nipple, which measures somew hat closer to the nipple than the area of distortion. Recommend breast MRI to f urther evaluate for suspicious enhancing lesions. Ultrasound-guided biopsy of a 4 mm shadowing lesion at 11:00 position should be considered regardless of MRI findings. BI-RADS category 4, suspicious findings.
--- OUTSIDE RECORDS SUMMARY | 2025-01-05 13:51 | XMS_ITS | Referral Summary ---
Author Organization [facility] Address [address] [place] [address] Care Team Providers Care Language Translator Name Role Phone Myriam Jorgensen MD Primary Care Provider [phone] Source Comments [facility],non-owned Affiliates and Associated Physician Practices is amultiple site organization consisting of ambulatory clinics and hospital sitesin [place], [place], [place] and [place]. This disclosure is being madepursuant to the Care Everywhere program and may not contain all information available regarding this patient. Last updated 18.[facility] Encounters Date Type Department Care Team Description 01/02/2025 Travel 01/02/2025 1:15 PM COLLEGE AND CAREER COUNSELOR - 01/02/2025 11:59 PM COLLEGE AND CAREER COUNSELOR Hospital Encounter [facility] [address] [place] [address] Tito Schwartz MD Discharge Disposition: Home or Self Care 12/23/2024 9:00 AM COLLEGE AND CAREER COUNSELOR - 12/23/2024 11:59 PM COLLEGE AND CAREER COUNSELOR Hospital Encounter [facility] RAD ONC [address] [place] [address] Ronnie Mcqueen MD Discharge Disposition: Home or Self Care 12/22/2024 Travel 12/22/2024 12:20 PM COLLEGE AND CAREER COUNSELOR - 12/22/2024 11:59 PM COLLEGE AND CAREER COUNSELOR Hospital Encounter [facility] [address] [place] [address] Wai Tse MD Discharge Disposition: Home or Self Care 12/22/2024 1:00 PM COLLEGE AND CAREER COUNSELOR Office Visit [facility] - Hematology/Oncology [address] [place] [phone] Wai Tse MD Metastatic renal cell carcinoma, unspecified laterality (HCC) (Primary Dx) 12/18/2024 9:00 AM COLLEGE AND CAREER COUNSELOR - 12/18/2024 11:59 PM COLLEGE AND CAREER COUNSELOR Hospital Encounter [facility] LAB OP DRAW STATION [address] [place] [address] Ronnie Mcqueen MD Discharge Disposition: Home or Self Care 12/18/2024 Travel 12/18/2024 8:56 AM COLLEGE AND CAREER COUNSELOR - 12/18/2024 8:59 AM [facility] Hospital Encounter [facility] CAT SCAN [address] [place] [address] Ronnie Mcqueen MD Discharge Disposition: Home or Self Care 12/09/2024 Travel 12/09/2024 9:30 AM COLLEGE AND CAREER COUNSELOR Office Visit [facility] - Nephrology [address] [facility] [place] [address] Kelly Coates, READING INSTRUCTOR-Tito Ruiz MD Proteinuria, unspecified type; Metastatic renal cell carcinoma, unspecified laterality (HCC) 11/27/2024 Telephone [facility] - Hematology/Oncology [address] [place] [phone] Wai Tse MD Medication Prior Auth Request; Medication Management 11/27/2024 Telephone [facility] - Hematology/Oncology [address] [place] [phone] Wai Tse MD Medication Prior Auth Request 11/07/2024 Refill [facility] - Hematology/Oncology [address] [place] [phone] Wai Tse MD Refill Request 11/07/2024 Telephone [facility] - Hematology/Oncology [address] [place] [phone] Kelly Coates APRN-ANKUR Follow-up 11/07/2024 Orders Only [facility] - Hematology/Oncology [address] [place] [address] Kelly Coates APRN-ANKUR Proteinuria, unspecified type ; Metastatic renal cell carcinoma, unspecified laterality (HCC) 11/06/2024 Orders Only [facility] - Hematology/Oncology [address] [place] [address] Kelly Coates APRN-ANKUR Proteinuria, unspecified type 10/23/2024 Telephone [facility] - Hematology/Oncology [address] [place] [address] Kelly Coates APRN-ANKUR Follow-up 10/23/2024 Telephone [facility] - Hematology/Oncology [address] [place] [address] Kelly Coates APRN-ANKUR Abnormal Lab from Last 3 Months Allergies [...] capsule by mouth at bedtime 30 capsule 07/22/2024 Active amLODIPine (Norvasc) 10 MG tabletIndications:Ma [...] (03/17/2021): Added automatically from request for surgery [id number] Personal history of malignant neoplasm of breast 12/04/2014 Encounter for antineoplastic chemotherapy 2013 Malignant neoplasm of kidney excluding renal pel vis 09/25/2014 Primary malignant neoplasm 02/01/2014 Other pulmonary embolism without acute cor pulmo nale 06/17/2013 Immunizations Name Administration Dates Next Due Power Efficiency primary monoval ent 12+ yr 0.3mL Purple cap 11/03/2021,12/27/2020,12/06/2020 HEP B VACCINE 08/25/2021 INFLUENZA VACCINE 08/18/2021 PNEUMOCOCCAL PPSV23 09/27/2014 Social History Tobacco Use Types Packs/Day Years Used Date Smoking Tobacco: Former Cigarettes Q uit: 07/28/1978 Smokeless Tobacco: Never Tobacco Cessation:Counseling Given: Not Answered Comments:only smoked occ in college Alcohol Use Standard Drinks/Week Comments Yes 1.7 (1 standard drink = 0.6 oz p ure alcohol) occ Sex and Gender Information Value Date Recorded Sex Assigned at Not on file Gender Identity Female 02/13/2024 7:42 AM CDT Sexual Orientation Not on file Last Filed Vital Signs Vital Sign Reading Time Taken Comments Blood Pressure 146/82 12/23/2024 9:05 AM COLLEGE AND CAREER COUNSELOR Pulse 62 12/23/2024 9:05 AM COLLEGE AND CAREER COUNSELOR Temperature 36.6 C (97.9 F) 12/23/2024 9:05 AM COLLEGE AND CAREER COUNSELOR Respiratory Rate 18 12/23/2024 9:05 AM COLLEGE AND CAREER COUNSELOR Oxygen Saturation 95% 12/23/2024 9:05 AM COLLEGE AND CAREER COUNSELOR Inhaled Oxygen Concentration - - Weight 91.4 kg (201 lb 6.4 oz) 12/23/2024 9:05 A M COLLEGE AND CAREER COUNSELOR Height 165.1 cm (5' 5 ) 06/18/2024 10:23 AM CDT Body Mass Index 33.51 06/18/2024 10:23 AM CDT Functional Status Functional [...] Care Team (Late st Contact Info) Description 01/13/2025 9:00 AM COLLEGE AND CAREER COUNSELOR Office Visit [facility] - Nephrology [address] [facility] [place] [address] Tito Schwartz MD [address] [place] [address] 03/23/2025 1:40 PM CDT Office Visit [facility] - Hematology/Oncology [address] [place] [phone] Wai Tse MD [facility]ATOLOGY & [place] [address] 04/02/2025 10:00 AM CDT Appointment [facility] CAT SCAN [address] [place] [phone] Ronnie Mcqueen MD [address] [place] [address] 04/07/2025 9:30 AM CDT Appointment [facility]C [address] [place] [address] Ronnie Mcqueen MD [address] [place] [address] Goals Goal Patient Goal Type Associated Problems Recent Progress Patient-Stated? Author Medication Management General On track( 025 9:54 AM COLLEGE AND CAREER COUNSELOR) No Adeola Julio, SHOSHANA Note: Expected end date: ongoing Interventions: Take all medications as prescribed Procedures Procedure Name Priority Date/Time Associated Diagnosis Comments US RETROPERITONEAL COMPLETE Routine 01/02/2025 1:56 PM COLLEGE AND CAREER COUNSELOR Proteinuria, unspecified type Metastatic renal cell carcinoma, unspecified laterality (HCC) URINALYSIS NO MICROSCOPIC NO CULTURE STAT 12/22/2024 1:06 PM COLLEGE AND CAREER COUNSELOR Malignant neoplasm of kidney excluding renal pelvis, unspecified laterality (HCC) CBC W AUTO DIFFERENTIAL STAT 12/22/19 25 1:06 PM COLLEGE AND CAREER COUNSELOR Malignant neoplasm of kidney excluding renal pelvis, unspecified laterality (HCC) URINALYSIS REFLEX TO MICROSCOPIC NO CULTURE Routine 12/18/2024 9:52 AM COLLEGE AND CAREER COUNSELOR Proteinuria, unspecified type Metastatic renal cell carcinoma, unspecified laterality (HCC) PROTEIN CREATININE RATIO URINE RANDOM PNL Routine 12/18/2024 9:52 AM COLLEGE AND CAREER COUNSELOR Proteinuria, unspecified type Metastatic renal cell carcinoma, unspecified laterality (HCC) SYPHILIS (T PALLIDUM) DONOR Routine 12/18/2024 9:51 AM COLLEGE AND CAREER COUNSELOR Proteinuria, unspecified type Metastatic renal cell carcinoma, unspecified laterality (HCC) REF LAB-SPECIMEN STATUS REPORT Routine 12/18/2024 9:51 AM COLLEGE AND CAREER COUNSELOR Proteinuria, unspecified type Metastatic renal cell carcinoma, unspecified laterality (HCC) IMMUNOFIXATION BLOOD Routine 12/18/2024 9:51 AM COLLEGE AND CAREER COUNSELOR Proteinuria, unspecified type KAPPA/LAMBDA LITE CHAIN FREE PANEL Routine 12/18/2024 9:51 AM COLLEGE AND CAREER COUNSELOR Proteinuria, unspecified type GLOMERULAR BASE MEMBRANE ANTIBODY IGG Routine 12/18/2024 9:51 AM COLLEGE AND CAREER COUNSELOR Proteinuria, unspecified type Metastatic renal cell carcinoma, unspecified laterality (HCC) PHOSPHOLIPASE A2 RECEPTOR AB IGG RFLX TITER Routine 12/18/2024 9:51 AM COLLEGE AND CAREER COUNSELOR Proteinuria, unspecified type Metastatic renal cell carcinoma, unspecified laterality (HCC) ANCA VASCULITIS PANEL Routine 12/18/2024 9:51 AM COLLEGE AND CAREER COUNSELOR Proteinuria, unspecified type Metastatic renal cell carcinoma, unspecified laterality (HCC) CHERYL BLOOD SCREEN W/REFLEX TITER Routine 12/18/2024 9:51 AM COLLEGE AND CAREER COUNSELOR Proteinuria, unspecified type Metastatic renal cell carcinoma, unspecified laterality (HCC) COMPLEMENT C4 Routine 12/18/2024 9:51 AM COLLEGE AND CAREER COUNSELOR Proteinuria, unspecified type Metastatic renal cell carcinoma, unspecified laterality (HCC) COMPLEMENT C3 Routine 12/18/2024 9:51 AM COLLEGE AND CAREER COUNSELOR Proteinuria, unspecified type Metastatic renal cell carcinoma, unspecified laterality (HCC) HIV-1 HIV-2 ANTIBODY + HIV P24 AG PANEL Routine 12/18/2024 9:51 AM COLLEGE AND CAREER COUNSELOR Proteinuria, unspecified type Metastatic renal cell carcinoma, unspecified laterality (HCC) CBC W/O DIFFERENTIAL Routine 12/18/2024 9:51 AM COLLEGE AND CAREER COUNSELOR Proteinuria, unspecified type Metastatic renal cell carcinoma, unspecified laterality (HCC) RENAL FUNCTION PANEL Routine 12/18/2024 9:51 AM COLLEGE AND CAREER COUNSELOR Proteinuria, unspecified type Metastatic renal cell carcinoma, unspecified laterality (HCC) DNA ANTIBODY DOUBLE STRANDED Routine 12/18/2024 9:51 AM COLLEGE AND CAREER COUNSELOR Proteinuria, unspecified type Metastatic renal cell carcinoma, unspecified laterality (HCC) CT CHEST ABDOMEN PELVIS W CONT Routine 12/18/2024 9:15 AM COLLEGE AND CAREER COUNSELOR 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) CREATININE - POCT INTERFACED Routine 12/18/2024 9:02 AM COLLEGE AND CAREER COUNSELOR URINALYSIS REFLEX TO MICROSCOPIC NO CULTURE Routine 11/06/2024 11:56 AM COLLEGE AND CAREER COUNSELOR Proteinuria, unspecified type LAB RESULTS ORDER 11/06/2024 HEPATITIS C RNA QUANTITATIVE Routine 03/17/2021 10:19 AM CDT Elevated liver enzymes from Last 3 Months or Most Recently Relevant to Health Maintenance Results * US Retroperitoneal Complete (01/02/2025 1:56 PM COLLEGE AND CAREER COUNSELOR) Anatomical Region Laterality Modality Abdomen Ultrasound 01/02/2025 3:48 PM COLLEGE AND CAREER COUNSELOR Impressions 01/02/2025 4:32 PM COLLEGE AND CAREER COUNSELOR IMPRESSION: Mild left calyectasis. Right kidney surgically absent. No renal calculus or solid renal mass in the left kidney > Dictated by Dimitris Sewell MD, (vice president biostatistics). I, Devan Acevedo MD have personally reviewed and interpreted this examination/study. > Interpreting Provider: Devan Acevedo MD on 01/02/2025 4:32 PM Narrative 01/02/2025 4:32 PM COLLEGE AND CAREER COUNSELOR PROCEDURE: US RETROPERITONEAL COMPLETE, DATE/TIME OF EXAM: 01/02/2025 1:56 PM, LOCATION [facility] INDICATION: R80.9: Proteinuria, unspecified type C64.9: Metastatic renal cell carcinoma, unspecified laterality (HCC) ADDITIONAL CLINICAL INFORMATION: Ordering Provider Reason For Exam: for renal biopsy COMPARISON: CT chest abdomen pelvis dated 12/18/2024 FINDINGS: Right kidney surgically absent. Left kidney measures 11.9 x 7.4 x 6 cm. There is mild left caliectasis. There is no solid renal mass or calculus in the left kidney. Blood flow seen within the left renal artery and vein. The bladder is distended and appears normal. Procedure Note Devan Acevedo MD - 01/02/2025 PROCEDURE: US RETROPERITONEAL COMPLETE, DATE/TIME OF EXAM: 51:56 PM, LOCATION [facility] INDICATION: R80.9: Proteinuria, unspecified type C64.9: Metastatic renal cell carcinoma, unspecified laterality (HCC) ADDITIONAL CLINICAL INFORMATION: Ordering Provider Reason For Exam: for renal biopsy COMPARISON: CT chest abdomen pelvis dated 12/18/2024 FINDINGS: Right kidney surgically absent. Left kidney measures 11.9 x 7.4 x 6 cm. There is mild left caliectasis. There is no solid renal mass or calculusin the left kidney. Blood flow seen within the left renal artery and vein.The bladder is distended and appears normal. IMPRESSION: Mild left calyectasis. Right kidney surgically absent. No renal calculusor solid renal mass in the left kidney > Dictated by Dimitris Sewell MD, (vice president biostatistics). I, Devan Acevedo MD have personally reviewed and interpreted this examination/study. > Interpreting Provider: Devan Acevedo MD on 01/02/2025 4:32 PM Tito Schwartz MD US ORDERABLES * (ABNORMAL) URINALYSIS NO MICROSCOPIC NO CULTURE (12/22/2024 1:06 PM COLLEGE AND CAREER COUNSELOR) Color UA Straw Straw, Yellow 12/22/2024 1:54 PM [facility] Clarity UA Clear Clear 12/22/2024 1:54 PM [facility] Specific [place] UA 1.002(L) 1.005 - 1.030 12/22/2024 1:54 PM [facility] pH UA 6.0 5.0 - 8.0 pH 12/22/2024 1:54 PM [facility] Protein UA 2+(A) Negative 12/22/2024 1:54 PM [facility] Glucose UA 3+(A) Negative 12/22/2024 1:54 PM [facility] Ketone UA Negative Negative 12/22/2024 1:54 PM [facility] Bilirubin UA Negative Negative 12/22/2024 1:54 PM [facility] Blood UA Negative Negative 12/22/2024 1:54 PM [facility] Nitrite UA Negative Negative 12/22/2024 1:54 PM [facility] Leukocyte Esterase Negative Negative 12/22/2024 1:54 PM [facility] Urobilinogen UA Negative Negative mg/dL 12/22/2024 1:54 PM [facility] Urine URINE SPECIMEN OBTAINED BY CLEAN CATCH PROCEDURE / Unknown Collection / Unknown 12/22/2024 1:06 PM COLLEGE AND CAREER COUNSELOR 12/22/2024 1:39 PM COLLEGE AND CAREER COUNSELOR [facility] - 12/22/2024 1:54 PM COLLEGE AND CAREER COUNSELOR Wai Tse MD LAB - URINALYSIS ORD ERABLES [facility] [address] [place] [address], [facility] [phone] * (ABNORMAL) CBC W AUTO DIFFERENTIAL (12/22/2024 1:06 PM COLLEGE AND CAREER COUNSELOR) WBC 6.5 4.0 - 10.7 x10E9/L 12/22/2024 2:15 PM [facility] RBC Count 4.80 3.90 - 5.20 x10E12/L 12/22/2024 2:15 PM [facility] Hemoglobin 15.9(H) 11.9 - 15.8 g/dL 12/22/2024 2:15 PM [facility] Hematocrit 45.6 34.8 - 46.1 % 12/22/2024 2:15 PM [facility] MCV 95.0 80.0 - 98.0 fL 12/22/2024 2:15 PM [facility] MCH 33.1 26.7 - 33.6 pg 12/22/2024 2:15 PM [facility] MCHC 34.9 31.7 - 36.3 g/dL 12/22/2024 2:15 PM [facility] RDW-CV 13.3 11.3 - 14.8 % 12/22/2024 2:15 PM [facility] Platelet Count 274 150 - 420 x10E9/L 12/22/2024 2:15 PM [facility] MPV 10.2 7.8 - 11.4 fL 12/22/2024 2:15 PM [facility] Preliminary Absolute Neutrophil 4.40 1.60 - 7.50 x10E9/L 12/22/2024 2:15 PM [facility] Neutrophil % 68.0 41.0 - 74.0 % 12/22/2024 2:15 PM [facility] Lymphocyte % 21.0 17.0 - 47.0 % 12/22/2024 2:15 PM [facility] Monocyte % 7.4 3.0 - 11.0 % 12/22/2024 2:15 PM [facility] Eosinophil % 2.8 0.0 - 7.0 % 12/22/2024 2:15 PM [facility] Basophil % 0.5 0.0 - 1.6 % 12/22/2024 2:15 PM [facility] Immature Granulocytes % 0.3 0.0 - 1.0 % 12/22/2024 2:15 PM [facility] Neutrophil Absolute 4.40 1.60 - 7.50 x10E9/L 12/22/2024 2:15 PM [facility] Lymphocyte Absolute 1.36 1.00 - 4.40 x10E9/L 12/22/2024 2:15 PM [facility] Monocyte Absolute 0.48 0.15 - 1.00 x10E9/L 12/22/2024 2:15 PM [facility] Eosinophil Absolute 0.18 0.00 - 0.60 x10E9/L 12/22/2024 2:15 PM [facility] Basophil Absolute 0.03 0.00 - 0.13 x10E9/L 12/22/2024 2:15 PM [facility] Blood BLOOD SPECIMEN / Unknown Venipuncture / Unknown 12/22/2024 1:06 PM COLLEGE AND CAREER COUNSELOR 12/22/2024 2:09 PM COLLEGE AND CAREER COUNSELOR Wai Tse MD LAB - HEMATOLOGY ORD ERABLES [facility] [address] [place] [address], [facility] [phone] * (ABNORMAL) URINALYSIS REFLEX TO MICROSCOPIC NO CULTURE (12/18/2024 9:52 AM COLLEGE AND CAREER COUNSELOR) Only the most recent of2 resultswithin the time period is included. Color UA Yellow Straw, Yellow 12/18/2024 10:37 AM [facility] Clarity UA Clear Clear 12/18/2024 10:37 AM [facility] Specific [place] UA 1.003(L) 1.005 - 1.030 12/18/2024 10:37 AM [facility] pH UA 6.0 5.0 - 8.0 pH 12/18/2024 10:37 AM [facility] Protein UA 2+(A) Negative 12/18/2024 10:37 AM [facility] Glucose UA 3+(A) Negative 12/18/2024 10:37 AM [facility] Ketone UA Negative Negative 12/18/2024 10:37 AM [facility] Bilirubin UA Negative Negative 12/18/2024 10:37 AM [facility] Blood UA Negative Negative 12/18/2024 10:37 AM [facility] Nitrite UA Negative Negative 12/18/2024 10:37 AM [facility] Leukocyte Esterase Negative Negative 12/18/2024 10:37 AM [facility] Urobilinogen UA Negative Negative mg/dL 12/18/2024 10:37 AM [facility] RBC UA 3-5 None Seen, 0-2, 3-5 /HPF 12/18/2024 10:37 AM [facility] WBC UA 0-5 None Seen, 0-5 /HPF 12/18/2024 10:37 AM [facility] Bacteria UA Trace(A) None /HPF 12/18/2024 10:37 AM [facility] Squamous Epithelial Cells UA 0-2 None Seen, 0-2, 3-5 /HPF 12/18/2024 10:37 AM [facility] Mucus UA 1+ /LPF 12/18/2024 10:37 AM [facility] Urine URINE SPECIMEN OBTAINED BY CLEAN CATCH PROCEDURE / Unknown Collection / Unknown 12/18/2024 9:52 AM COLLEGE AND CAREER COUNSELOR 12/18/2024 10:15 AM [facility] - 12/18/2024 10:37 AM [facility] Tito Schwartz MD LAB - URINALYSIS ORD ERABLES Performing Organization Address City/[facility]/ZIP Co de Phone Number [facility] [address] [place] [address], [facility] [phone] * (ABNORMAL) PROTEIN CREATININE RATIO URINE RANDOM PNL (12/18/2024 9:52 AM COLLEGE AND CAREER COUNSELOR) Protein Urine 102 Not Established mg/dL 12/18/2024 11:08 AM COLLEGE AND CAREER COUNSELOR [facility] Creatinine Urine 33.98 Not Established mg/dL 12/18/2024 11:08 AM COLLEGE AND CAREER COUNSELOR [facility] Protein/Creati nine Ratio Urine 3.00(H) <0.10 12/18/2024 11:08 AM [facility] Urine URINE SPECIMEN OBTAINED BY CLEAN CATCH PROCEDURE / Unknown Collection / Unknown 12/18/2024 9:52 AM COLLEGE AND CAREER COUNSELOR 12/18/2024 10:15 AM COLLEGE AND CAREER COUNSELOR Tito Schwartz MD LAB - URINE CHEMISTR Y ORDERABLES Performing Organization Address City/[facility]/ZIP Co de Phone Number [facility] [address] [place] [address], [facility] [phone] * SYPHILIS (T PALLIDUM) DONOR (12/18/2024 9:51 AM COLLEGE AND CAREER COUNSELOR) Pathologist [facility] Donor Syphilis (T pallidum) Non Reactive Non Reactive 12/27/2024 7:08 PM COLLEGE AND CAREER COUNSELOR [facility] ([facility]) Comment: Test performed with [employer]IA Syphilis (T pallidum)-G kit. Blood BLOOD SPECIMEN / Unknown Lab Venipuncture / Unknown 12/18/2024 9:51 AM COLLEGE AND CAREER COUNSELOR 12/18/2024 10:16 AM COLLEGE AND CAREER COUNSELOR Narrative [facility] ([facility]) - 12/27/2024 7:08 PM COLLEGE AND CAREER COUNSELOR Performed at: 01 - [employer] [address] [place] [id number] Shot Peening Operator: Jon Pinedo [facility], Phone: [phone] Tito Schwartz MD LAB - CHEMISTRY ORDE RABLES [facility]) [address] [place] [address]RUST * PHOSPHOLIPASE A2 RECEPTOR AB IGG RFLX TITER (12/18/2024 9:51 AM COLLEGE AND CAREER COUNSELOR) Pathologist [facility] Phospholipase A2 Receptor IgG <1:10 <1:10 12/20/2024 4:22 PM COLLEGE AND CAREER COUNSELOR [facility] ([facility]) Comment: Phospholipase A2 Receptor Antibody, IgG is not detected. No further testing will be performed. Performed By: [employer] [address] [place] [address] [employer]: Tucker Hernandez MD, PhD CLIA Number: [id number] Blood BLOOD SPECIMEN / Unknown Lab Venipuncture / Unknown 12/18/2024 9:51 AM COLLEGE AND CAREER COUNSELOR 12/18/2024 10:16 AM COLLEGE AND CAREER COUNSELOR Tito Schwartz MD LAB - CHEMISTRY HELENA LANDA Performing Organization Address City/[facility] Co de Phone Number [facility]) [address] [place] [address] * HIV-1 HIV-2 ANTIBODY + HIV P24 AG PANEL (12/18/2024 9:51 AM COLLEGE AND CAREER COUNSELOR) [facility] HIV Antigen/Antibod y 1 & 2 Non-reacti ve Non-react nafisa 12/18/2024 11:31 AM COLLEGE AND CAREER COUNSELOR [facility] Comment:No Laboratory eviden ce of HIV infection. Blood BLOOD SPECIMEN / Unknown Lab Venipuncture / Unknown 12/18/2024 9:51 AM COLLEGE AND CAREER COUNSELOR 12/18/2024 10:16 AM COLLEGE AND CAREER COUNSELOR Tito Schwartz MD LAB - CHEMISTRY HELENA LANDA [facility] [address] [address], [facility] [phone] * REF LAB-SPECIMEN STATUS REPORT (12/18/2024 9:51 AM COLLEGE AND CAREER COUNSELOR) Pathologist [facility] Specimen Status Report Comment 12/22/2024 5:07 PM COLLEGE AND CAREER COUNSELOR [facility] ([facility]) Comment: Written Authorization Written Authorization Written Authorization Received. Authorization received from [employer] 12-22-2024 Logged by Faye Villafana Blood BLOOD SPECIMEN / Unknown Lab Venipuncture / Unknown 12/18/2024 9:51 AM COLLEGE AND CAREER COUNSELOR 12/18/2024 10:16 AM COLLEGE AND CAREER COUNSELOR Narrative [facility] ([facility]) - 12/22/2024 5:07 PM COLLEGE AND CAREER COUNSELOR Performed at: - [facility] [address] [place], [place] [id number] Shot Peening Operator: Alejandro Doshi PhD, Phone: [phone] Tito Schwartz MD LAB - CHEMISTRY HELENA LANDA Performing Organization Address City/[facility] Co de Phone Number [facility]) [address] [place] [address]RUST * IMMUNOFIXATION BLOOD (12/18/2024 9:51 AM COLLEGE AND CAREER COUNSELOR) [facility] Immunofixation Serum Normal Pattern Normal Pattern 12/19/2024 3:30 PM COLLEGE AND CAREER COUNSELOR [facility] Comment: No monoclonal immunoglobulin detected by serum immunosubtraction. Margie Rinaldi PhD, [facility] Clinical [employer] Drier Operator software firmware engineer *The electrophoresis pattern and the interpretation have been reviewed and verified by the teaching physician. Blood BLOOD SPECIMEN / Unknown Lab Venipuncture / Unknown 12/18/2024 9:51 AM COLLEGE AND CAREER COUNSELOR 12/18/2024 10:16 AM COLLEGE AND CAREER COUNSELOR Tito Schwartz MD LAB - CHEMISTRY HELENA LANDA Performing Organization Address City/[facility]/ZIP Co de Phone Number [address] [address], [facility] [phone] * ANCA VASCULITIS PANEL (12/18/2024 9:51 AM COLLEGE AND CAREER COUNSELOR) [facility] Myeloperoxidase Antibody 0 0 - 19 AU/mL 12/21/2024 12:18 PM COLLEGE AND CAREER COUNSELOR [facility] ([facility]) Comment: INTERPRETIVE INFORMATION: Myeloperoxidase Abs, IgG 19 AU/mL or Less ......... Negative 20-25 AU/mL .............. Equivocal 26 AU/mL or Greater ...... Positive Approximately 90% of patients with a P-ANCA pattern by IFA have antibodies specific for MPO. Serine Proteinase 3 IgG 3 0 - 19 AU/mL 12/21/2024 12:18 PM COLLEGE AND CAREER COUNSELOR [employer] ([facility]) Comment: INTERPRETIVE INFORMATION: Serine Proteinase 3, IgG 19 AU/mL or Less ........ Negative 20-25 AU/mL ............. Equivocal 26 AU/mL or Greater ..... Positive Approximately 85% of patients with a C-ANCA pattern by IFA have antibodies specific for PR3. ANCA Titer IFA <1:20 <1:20 12/21/2024 12:18 PM COLLEGE AND CAREER COUNSELOR [employer] ([facility]) ANCA Pattern IFA None Detected None Detected 12/21/2024 12:18 PM COLLEGE AND CAREER COUNSELOR [employer] ([facility]) Comment: INTERPRETIVE INFORMATION: ANCA IFA Pattern Neutrophil Cytoplasmic Antibodies (C-ANCA = granular cytoplasmic staining, P-ANCA = perinuclear staining) are found in the serum of over 90 percent of patients with certain necrotizing systemic vasculitides, and usually in less than 5 percent of patients with collagen vascular disease or arthritis. Performed By: [facility] [address] [place] [address] [employer] Clippings: Tucker Hernandez MD, PhD CLIA Number: [id number] Blood BLOOD SPECIMEN / Unknown Lab Venipuncture / Unknown 12/18/2024 9:51 AM COLLEGE AND CAREER COUNSELOR 12/18/2024 10:55 AM COLLEGE AND CAREER COUNSELOR Tito Schwartz MD LAB - CHEMISTRY ORDE [facility]DE[facility] Organization Address City/State/ZIP Co de Phone Number [facility]) [address] * CHERYL BLOOD SCREEN W/REFLEX TITER (12/18/2024 9:51 AM COLLEGE AND CAREER COUNSELOR) Pathologist [facility] CHERYL IgG None Detected None Detected 12/20/2024 5:47 AM COLLEGE AND CAREER COUNSELOR [employer] ([facility]) Comment: If suspicion of connective tissue disease is strong and CHERYL EIA is negative, consider testing for CHERYL by IFA ([id number]). INTERPRETIVE INFORMATION: Anti-Nuclear Antibodies (CHERYL), IgG by ERNESTO Antinuclear Antibodies (CHERYL), IgG by ERNESTO: CHERYL specimens are screened using enzyme-linked immunosorbent assay (ERNESTO) methodology. All ERNESTO results reported as Detected are further tested by indirect fluorescent assay (IFA) using HEp-2 substrate with an IgG-specific conjugate. The CHERYL ERNESTO screen is designed to detect antibodies against dsDNA, histones, SS-A (Ro), SS-B (La), Richey, Richey/REWORK OPERATOR, Scl-70, More-1, centromeric proteins, other antigens extracted from the HEp-2 cell nucleus. CHERYL ERNESTO assays have been reported to have lower sensitivities than CHERYL IFA for systemic autoimmune rheumatic diseases (SARD). Negative results do not necessarily rule out SARD. Performed By: [employer] [address] [place] [address] [employer] Clippings: Tucker Hernandez MD, PhD CLIA Number: [id number] Blood BLOOD SPECIMEN / Unknown Lab Venipuncture / Unknown 12/18/2024 9:51 AM COLLEGE AND CAREER COUNSELOR 12/18/2024 10:16 AM COLLEGE AND CAREER COUNSELOR Tito Schwartz MD LAB - CHEMISTRY ORDE [facility]) [address] [place] [address], [facility] * GLOMERULAR BASE MEMBRANE ANTIBODY IGG (12/18/2024 9:51 AM COLLEGE AND CAREER COUNSELOR) GBM Antibody IgG (EU) 0 0 - 19 AU/mL 12/21/2024 12:22 PM COLLEGE AND CAREER COUNSELOR [facility] ([facility]) Comment: INTERPRETIVE INFORMATION: GBM Ab, IgG by Multiplex Bead Assay 19 AU/mL or Less ......... Negative 20-25 AU/mL .............. Equivocal 26 AU/mL or Greater ...... Positive The presence of anti-glomerular basement membrane (GBM) antibodies by Multiplex Bead Assay may aid in the diagnosis of Goodpasture syndrome. False positive results may occur due to reactivity against other chains of type IV collagen. If Multiplex Bead Assay is negative but there is a strong suspicion for disease, renal biopsy may be indicated. A renal biopsy may also be essential in suspected Goodpasture disease with renal involvement, allowing diagnostic confirmation and assessment of renal prognosis. Performed By: [facility] [address] [place] [address] [employer] Clippings: Tucker Hernandez MD, PhD CLIA Number: [id number] Blood BLOOD SPECIMEN / Unknown Lab Venipuncture / Unknown 12/18/2024 9:51 AM COLLEGE AND CAREER COUNSELOR 12/18/2024 10:16 AM COLLEGE AND CAREER COUNSELOR Tito Schwartz MD LAB - CHEMISTRY HELENA LANDA [facility]) [address] [place] [address], [facility] * DNA ANTIBODY DOUBLE STRANDED (12/18/2024 9:51 AM COLLEGE AND CAREER COUNSELOR) dsDNA Antibody 10 0 - 24 IU 12/20/2024 12:22 AM COLLEGE AND CAREER COUNSELOR [facility] ([facility]) Comment: INTERPRETIVE INFORMATION: Double-Stranded DNA (dsDNA) Ab IgG ERNESTO 24 IU or less........Negative 25-30 IU.............Borderline Positive 30-60 IU.............Low Positive 60-200 IU............Positive 201 IU or greater....Strong Positive Positivity for anti-double stranded DNA (anti-dsDNA) IgG antibody is a diagnostic criterion of systemic lupus erythematosus (SLE). Specimens are initially screened by enzyme-linked immunosorbent assay (ERNESTO). If ordered as reflex ([id number]), positive ERNESTO results (>24 IU) will be reflexed to a highly specific IFA titer (Crithidia luciliae indirect fluorescent test [TRI') for confirmation. Some patients with early or inactive SLE may be positive for anti-dsDNA IgG by ERNESTO but negative by TRI. If the patient is negative by TRI but positive by ERNESTO and clinical suspicion remains, consider antinuclear antibody (CHERYL) testing by IFA. Additional information and recommendations for testing may be found at [email or web address]/content/axrhhelg-fkpdy-[email or web address]. Performed by [facility], [address] [place] [address] [email or web address], Balaji Torres MD, Lab. Director CLIA Number: [id number] Blood BLOOD SPECIMEN / Unknown Lab Venipuncture / Unknown 12/18/2024 9:51 AM COLLEGE AND CAREER COUNSELOR 12/18/2024 10:16 AM COLLEGE AND CAREER COUNSELOR Tito Schwartz MD LAB - HEMATOLOGY ORD ERABLES Performing Organization Address [facility] Co de Phone Number [employer]) [address] * (ABNORMAL) KAPPA/LAMBDA LITE CHAIN FREE PANEL (12/18/2024 9:51 AM COLLEGE AND CAREER COUNSELOR) [place] Quant Free Light Chain 20.59(H) 3.30 - 19.40 mg/L 12/20/2024 5:06 AM COLLEGE AND CAREER COUNSELOR [facility] ([facility]) Comment: INTERPRETIVE INFORMATION: [place] Qnt Free Light Chains Undetected antigen excess is a rare event but cannot be excluded. Free light chain results should always be interpreted in conjunction with other clinical and laboratory findings. Lambda Free Light Chain Quantitative 16.76 5.71 - 26.30 mg/L 12/20/2024 5:06 AM COLLEGE AND CAREER COUNSELOR [employer] ([facility]) Comment: INTERPRETIVE INFORMATION: [place] Qnt Free Light Chains Undetected antigen excess is a rare event but cannot be excluded. Free light chain results should always be interpreted in conjunction with other clinical and laboratory findings. [place]/Lambda Free Light Chain ratio 1.23 0.26 - 1.65 12/20/2024 5:06 AM COLLEGE AND CAREER COUNSELOR [employer] ([facility]) Comment: Performed By: [facility] [address] [place] [address] [employer] Clippings: Tucker Hernandez MD, PhD CLIA Number: [id number] Blood BLOOD SPECIMEN / Unknown Lab Venipuncture / Unknown 12/18/2024 9:51 AM COLLEGE AND CAREER COUNSELOR 12/18/2024 10:16 AM COLLEGE AND CAREER COUNSELOR Tito Schwartz MD LAB - CHEMISTRY ORDE RABLES Performing Organization Address City/[facility]/ZIP Co de Phone Number [employer]) [address] * CBC W/O DIFFERENTIAL (12/18/2024 9:51 AM COLLEGE AND CAREER COUNSELOR) WBC 4.8 4.0 - 10.7 x10E9/L 12/18/2024 10:45 AM [facility] RBC Count 4.80 3.90 - 5.20 x10E12/L 12/18/2024 10:45 AM [facility] Hemoglobin 15.6 11.9 - 15.8 g/dL 12/18/2024 10:45 AM [facility] Hematocrit 45.8 34.8 - 46.1 % 12/18/2024 10:45 AM [facility] MCV 95.4 80.0 - 98.0 fL 12/18/2024 10:45 AM [facility] MCH 32.5 26.7 - 33.6 pg 12/18/2024 10:45 AM [facility] MCHC 34.1 31.7 - 36.3 g/dL 12/18/2024 10:45 AM [facility] RDW-CV 13.4 11.3 - 14.8 % 12/18/2024 10:45 AM [facility] Platelet Count 225 150 - 420 x10E9/L 12/18/2024 10:45 AM [facility] MPV 9.9 7.8 - 11.4 fL 12/18/2024 10:45 AM [facility] Blood BLOOD SPECIMEN / Unknown Lab Venipuncture / Unknown 12/18/2024 9:51 AM COLLEGE AND CAREER COUNSELOR 12/18/2024 10:35 AM [facility] Tito Schwartz MD LAB - HEMATOLOGY ORD ERABLES [facility] [address] [place] [phone], [facility] [phone] * COMPLEMENT C4 (12/18/2024 9:51 AM [facility]) Pathologist [facility] Complement C4 43 15 - 57 mg/dL 12/18/2024 11:09 AM [facility] Blood BLOOD SPECIMEN / Unknown Lab Venipuncture / Unknown 12/18/2024 9:51 AM COLLEGE AND CAREER COUNSELOR 12/18/2024 10:34 AM [facility] Tito Schwartz MD LAB - SEROLOGY ORDER HARJINDER [facility] [address] [place] [address], [facility] [phone] * (ABNORMAL) RENAL FUNCTION PANEL (12/18/2024 9:51 AM [facility]) BUN 11 7 - 26 mg/dL 12/18/2024 11:09 AM [facility] Creatinine 0.93 0.56 - 0.96 mg/dL 12/18/2024 11:09 AM [facility] Sodium 138 136 - 145 mmol/L 12/18/2024 11:09 AM [facility] Potassium 3.6 3.5 - 4.5 mmol/L 12/18/2024 11:09 AM [facility] Chloride 103 98 - 107 mmol/L 12/18/2024 11:09 AM [facility] CO2 23 22 - 29 mmol/L 12/18/2024 11:09 AM [facility] Glucose 85 70 - 99 mg/dL 12/18/2024 11:09 AM [facility] Albumin 4.3 3.4 - 5.0 g/dL 12/18/2024 11:09 AM [facility] Calcium 10.4(H) 8.4 - 10.2 mg/dL 12/18/2024 11:09 AM [facility] Phosphorus 3.3 2.9 - 5.1 mg/dL 12/18/2024 11:09 AM [facility] Anion Gap 12 6 - 16 12/18/2024 11:09 AM [facility] BUN/Creatinine Ratio 12 7 - 23 12/18/2024 11:09 AM [facility] Osmolality Calculated 285 275 - 295 mOsm/kg 12/18/2024 11:09 AM [facility] eGFR by CKD-EPI 68(L) >=90 mL/min/1.7 3 m2 12/18/2024 11:09 AM [facility] Blood BLOOD SPECIMEN / Unknown Lab Venipuncture / Unknown 12/18/2024 9:51 AM COLLEGE AND CAREER COUNSELOR 12/18/2024 10:34 AM COLLEGE AND CAREER COUNSELOR Tito Schwartz MD LAB - CHEMISTRY HELENA LANDA Performing Organization Address City/[facility]/ZIP Co de Phone Number [address] [address], [facility] [phone] * COMPLEMENT C3 (12/18/2024 9:51 AM COLLEGE AND CAREER COUNSELOR) Complement C3 161 82 - 193 mg/dL 12/18/2024 11:09 AM COLLEGE AND CAREER COUNSELOR [facility] Blood BLOOD SPECIMEN / Unknown Lab Venipuncture / Unknown 12/18/2024 9:51 AM COLLEGE AND CAREER COUNSELOR 12/18/2024 10:34 AM COLLEGE AND CAREER COUNSELOR Tito Schwartz MD LAB - CHEMISTRY HELENA LANDA Performing Organization Address [facility]/ZIP Co de Phone Number [address] [address], [facility] [phone] * CT Chest Abdomen Pelvis W Cont (12/18/2024 9:15 AM COLLEGE AND CAREER COUNSELOR) Anatomical Region Laterality Modality Chest, Abdomen, Pelvis Computed Tomography 12/18/2024 9:27 AM COLLEGE AND CAREER COUNSELOR Impressions 12/18/2024 10:32 AM COLLEGE AND CAREER COUNSELOR Impression: 1.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 2.No evidence of metastatic disease within the chest, abdomen, or pelvis. > Dictated by Florentino Duncan MD, (vice president biostatistics). I, Maribel Reyes MD have personally reviewed and interpreted this examination/study. > Interpreting Provider: Maribel Reyes MD on 12/18/2024 10:32 AM Narrative 12/18/2024 10:32 AM COLLEGE AND CAREER COUNSELOR PROCEDURE: CT CHEST ABDOMEN PELVIS W CONT, DATE/TIME OF EXAM: 12/18/2024 9:16 AM, LOCATION [facility] INDICATION: C78.02: 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) ADDITIONAL CLINICAL INFORMATION: Ordering Provider Reason For Exam: Metastatic RCC. On surveillance. Technologist Note: Additional: COMPARISON: CT chest abdomen pelvis with contrast dated 08/08/2024 TECHNIQUE: CT of the chest, abdomen, and pelvis was performed following the uneventful administration of 100 mL of Isovue 370 intravenous contrast according to standard protocol. Findings: Lower Neck and Axillae: Unchanged subcentimeter lymph nodes with stranding in the left axilla. Lungs: Postsurgical changes of left upper lobectomy. Focal linear calcification in the left lower lobe with some surrounding scarring. No suspicious pulmonary nodules. No pleural effusion or pneumothorax. Heart and Pericardium: The cardiac chambers are normal in size. No pericardial fluid or thickening is present. Mediastinum and Damaris: No enlarged lymph nodes are present. Thoracic Vasculature: The aorta and its branch vessels are atherosclerotic. The main pulmonary artery is dilated measuring 3.6 cm. Liver: We demonstrated multiple hypodense lesions in the liver measuring up to 1.9 cm, unchanged from prior. Gallbladder and Bile Ducts: Normal. Spleen: Normal. Pancreas: Normal. Adrenals: Normal. Kidneys: The right kidney is absent. There is no evidence of recurrent disease within the resection bed. There is redemonstrated mild dilation of the left ureter with some areas of urothelial enhancement. Gastrointestinal: There is a moderate hiatal hernia. The stomach and visualized loops of small bowel are unremarkable. Colonic diverticulosis without evidence of diverticulitis is seen. Normal appendix. Mesentery/Peritoneum/Retroperitoneum: Normal. Pelvis: Limited evaluation due to streak artifact from bilateral hip arthroplasties. The visualized bladder is unremarkable. Vasculature: Atherosclerotic calcification of the aorta and its branch vessels. Bones: Bone windows demonstrate no suspicious lytic or blastic lesions. The visible osseous structures are intact. Degenerative changes are seen in the spine. There is anterolisthesis of L4 on L5. Bilateral hip arthroplasties. Bilateral hip arthroplasty status. Soft tissues: Normal. Procedure Note Maribel Reyes MD - 12/18/2024 PROCEDURE: CT CHEST ABDOMEN PELVIS W CONT, DATE/TIME OF EXAM: 12/18/2024 9:16 AM, LOCATION [facility] INDICATION: C78.02: 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) ADDITIONAL CLINICAL INFORMATION: Ordering Provider Reason For Exam: Metastatic RCC. On surveillance. Technologist Note: Additional: COMPARISON: CT chest abdomen pelvis with contrast dated 08/08/2024 TECHNIQUE: CT of the chest, abdomen, and pelvis was performed followingthe uneventful administration of 100 mL of Isovue 370 intravenous contrast according to standard protocol. Findings: Lower Neck and Axillae: Unchanged subcentimeter lymph nodes with stranding in the left axilla. Lungs: Postsurgical changes of left upper lobectomy. Focal linear calcificationin the left lower lobe with some surrounding scarring. No suspiciouspulmonary nodules. No pleural effusion or pneumothorax. Heart and Pericardium: The cardiac chambers are normal in size. No pericardial fluid orthickening is present. Mediastinum and Damaris: No enlarged lymph nodes are present. Thoracic Vasculature: The aorta and its branch vessels are atherosclerotic. The main pulmonary artery is dilated measuring 3.6 cm. Liver: We demonstrated multiple hypodense lesions in the liver measuring up to1.9 cm, unchanged from prior. Gallbladder and Bile Ducts: Normal. Spleen: Normal. Pancreas: Normal. Adrenals: Normal. Kidneys: The right kidney is absent. There is no evidence of recurrent disease within the resection bed. There is redemonstrated mild dilation of the left ureter with some areasof urothelial enhancement. Gastrointestinal: There is a moderate hiatal hernia. The stomach and visualized loops of small bowel are unremarkable. Colonic diverticulosis without evidence of diverticulitis is seen. Normal appendix. Mesentery/Peritoneum/Retroperitoneum: Normal. Pelvis: Limited evaluation due to streak artifact from bilateral hip arthroplasties. The visualized bladder is unremarkable. Vasculature: Atherosclerotic calcification of the aorta and its branch vessels. Bones: Bone windows demonstrate no suspicious lytic or blastic lesions. The visible osseous structures are intact. Degenerative changes are seen inthe spine. There is anterolisthesis of L4 on L5. Bilateral hiparthroplasties. Bilateral hip arthroplasty status. Soft tissues: Normal. Impression: 1.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 2.No evidence of metastatic disease within the chest, abdomen, orpelvis. > Dictated by Florentino Duncan MD, (vice president biostatistics). I, Maribel Reyes MD have personally reviewed and interpreted this examination/study. > Interpreting Provider: Maribel Reyes MD on 510:32 AM Ronnie Mcqueen MD CT ORDERABLES * (ABNORMAL) CREATININE - POCT INTERFACED (12/18/2024 9:02 AM COLLEGE AND CAREER COUNSELOR) [facility] Creatinine POCT 0.75 0.30 - 1.30 mg/dL 12/18/2024 9:08 AM [facility] eGFR 88(L) >=90 mL/min/1.7 3 m2 12/18/2024 9:08 AM [facility] Blood BLOOD SPECIMEN / Unknown 12/18/2024 9:02 AM COLLEGE AND CAREER COUNSELOR 12/18/2024 9:08 AM [facility] Ronnie Mcqueen MD LAB - POINT OF CARE ORDERABLES [facility] [address] [address], [facility] [phone] * LAB RESULTS ORDER (11/06/2024) 11/06/2024 Narrative 11/06/2024 Ordered by an unspecified provider. Scanned Document LAB - THERAPEUTIC DR BATRES MONITORING ORDERABLES * HEPATITIS C RNA QUANTITATIVE (03/17/2021 10:19 AM CDT) [facility] Hepatitis C RNA PCR, Interp Not detected Not detected 03/21/2021 3:48 PM CDT [facility] Blood BLOOD SPECIMEN / Unknown Lab Venipuncture / Unknown 03/17/2021 10:19 AM CDT 03/17/2021 10:35 AM CDT Narrative [facility] - 03/21/2021 3:48 PM CDT The Hepatitis C viral (HCV) RNA analysis utilized a serum sample, real-time reverse airveyor operator PCR, and is reported as Not [...] the isolation of HCV RNA with reverse airveyor operator of genomic HCV RNA followed by real-time PCR in the presence of an unrelated RNA internal control. The internal control ensures that RNA is isolated, and that no general significant inhibitors of the RT-PCR process are present. The analysis was performed using a U.S. FDA approved test methodology ([employer] Real Time HCV). Jessica Padron READING INSTRUCTOR-MAILHOUSE OPERATOR LAB - CHEMIS TRY ORDERABLES [facility] [address] [place] [address], [facility] [phone] from Last 3 Months or Most Recently Relevant to Health Maintenance Advance Directives * Full Code (Latest Code Status on File) Date Activated Date Inactivated Comments 01/01/2020 1:07 PM 01/02/2020 11:33 AM Care Teams Language Translator Relationship Specialty Start Date End Date Myriam Jorgensen MD [address] [place] [address] PCP - General 10/16/22
--- OUTSIDE RECORDS SUMMARY | 2025-01-05 13:51 | XMS_ITS | Clinical Summary ---
Author Organization [facility] Yo Address [address] [place] [address] Care Team Providers Care Mold Cleaner Name Role Phone Myriam Jorgensen MD Primary Care Provider [phone] Source Comments [facility] Yo,non-owned Affiliates and Associated Physician Practices is amultiple site organization consisting of ambulatory clinics and hospital sitesin [place], [place], [place] and [place]. This disclosure is being madepursuant to the Care Everywhere program and may not contain all information available regarding this patient. Last updated 18.[facility] Allergies Active Allergy Reactions Criticality Noted Date [...] (03/17/2021): Added automatically from request for surgery [id number] Personal history of malignant neoplasm of breast 12/04/2014 Encounter for antineoplastic chemotherapy 2013 Malignant neoplasm of kidney excluding renal pel vis 09/25/2014 Primary malignant neoplasm 02/01/2014 Other pulmonary embolism without acute cor pulmo nale 06/17/2013 Encounters Date Type Department Care Team Description 01/02/2025 1:15 PM BANQUET SERVER ON CALL - 01/02/2025 11:59 PM BANQUET SERVER ON CALL Hospital Encounter [place] [id number] [place] [address] Tito Schwartz MD Discharge Disposition: Home or Self Care 01/02/2025 Travel 12/23/2024 9:00 AM BANQUET SERVER ON CALL - 12/23/2024 11:59 PM BANQUET SERVER ON CALL Hospital Encounter [facility] RAD ONC [address] [place] [address] Ronnie Mcqueen MD Discharge Disposition: Home or Self Care 12/22/2024 1:00 PM BANQUET SERVER ON CALL [facility] [address] [place] [address] Wai Tse MD Metastatic renal cell carcinoma, unspecified laterality (HCC) (Primary Dx) 12/22/2024 12:20 PM BANQUET SERVER ON CALL - 12/22/2024 11:59 PM BANQUET SERVER ON CALL Hospital Encounter [facility] [address] [place] [address] Wai Tse MD Discharge Disposition: Home or Self Care 12/22/2024 Travel 12/18/2024 9:00 AM BANQUET SERVER ON CALL - 12/18/2024 11:59 PM BANQUET SERVER ON CALL Hospital Encounter [facility] LAB OP DRAW STATION [address] [place] [address] Ronnie Mcqueen MD Discharge Disposition: Home or Self Care 12/18/2024 8:56 AM BANQUET SERVER ON CALL - 12/18/2024 8:59 AM BANQUET SERVER ON CALL Hospital Encounter [facility] CAT SCAN [address] [place] [address] Ronnie Mcqueen MD Discharge Disposition: Home or Self Care 12/18/2024 Travel 12/09/2024 9:30 AM BANQUET SERVER ON CALL Office Visit [facility] - Nephrology [address] [facility] [place] [address] Kelly Coates, ADULT LIVE IN CAREGIVER-POLICE RESERVES COMMANDER Tito Schwartz MD Proteinuria, unspecified type; Metastatic renal cell carcinoma, unspecified laterality (HCC) 12/09/2024 Travel 11/27/2024 Telephone [facility] - Hematology/Oncology [address] [place] [address] Wai Tse MD Medication Prior Auth Request; Medication Management 11/27/2024 Telephone [facility] - Hematology/Oncology [address] [place] [address] Wai Tse MD Medication Prior Auth Request 11/07/2024 Refill [facility] - Hematology/Oncology [address] [place] [address] Wai Tse MD Refill Request 11/07/2024 Telephone [facility] - Hematology/Oncology [address] [place] [address] AminataKelly elizabeth ADULT LIVE IN CAREGIVER-POLICE RESERVES COMMANDER Follow-up 11/07/2024 Orders Only [facility] - Hematology/Oncology [address] [place] [address] AminataJacquelynKelly, ADULT LIVE IN CAREGIVER-POLICE RESERVES COMMANDER Proteinuria, unspecified type ; Metastatic renal cell carcinoma, unspecified laterality (HCC) 11/06/2024 Orders Only [facility] - Hematology/Oncology [address] [place] [address] AminataJacquelynKelly, ADULT LIVE IN CAREGIVER-POLICE RESERVES COMMANDER Proteinuria, unspecified type 10/23/2024 Telephone [facility] - Hematology/Oncology [address] [place] [address] Aminata, Kelly, ADULT LIVE IN CAREGIVER-POLICE RESERVES COMMANDER Follow-up 10/23/2024 Telephone [facility] - Hematology/Oncology [address] [place] [address] Aminata, Kelly, ADULT LIVE IN CAREGIVER-POLICE RESERVES COMMANDER Abnormal Lab from Last 3 Months Immunizations Name Administration Dates Next Due [employer] primary monoval ent 12+ yr 0.3mL Purple [...] Comments Blood Pressure 146/82 12/23/2024 9:05 AM BANQUET SERVER ON CALL Pulse 62 12/23/2024 9:05 AM BANQUET SERVER ON CALL Temperature 36.6 C (97.9 F) 12/23/2024 9:05 AM BANQUET SERVER ON CALL Respiratory Rate 18 12/23/2024 9:05 AM BANQUET SERVER ON CALL Oxygen Saturation 95% 12/23/2024 9:05 AM BANQUET SERVER ON CALL Inhaled Oxygen Concentration - - Weight 91.4 kg (201 lb 6.4 oz) 12/23/2024 9:05 A M BANQUET SERVER ON CALL Height 165.1 cm (5' 5 ) 06/18/2024 10:23 AM CDT Body Mass Index 33.51 06/18/2024 10:23 AM CDT Plan of Treatment Upcoming Encounters Date Type Department Care Team (Late st Contact Info) Description 01/13/2025 9:00 AM BANQUET SERVER ON CALL Office Visit [facility] - Nephrology [address] [facility], [facility] [place] [address] Tito Schwartz MD [address] [place] [address] 03/23/2025 1:40 PM CDT Office Visit [facility] - Hematology/Oncology [address] [place] [phone] Wai Tse MD [address] [place] [address] DIV OF HEMATOLOGY & [place] [address] 04/02/2025 10:00 AM CDT Appointment [facility] CAT SCAN [address] [place] [phone] Ronnie Mcqueen MD [address] [place] [address] 04/07/2025 9:30 AM CDT Appointment [facility] RAD ONC [address] [place] [address] Ronnie Mcqueen MD [address] [place] [address] Health Maintenance Due Date Last Done Comments [...] 3-dose series) 09/22/2021 08/25/2021 COVID-19 VACCINE ( - 2023- season) 2024 11/03/2021, 12/27/2020, 12/06/2020 INFLUENZA VACCINE (#1) 2024 2, 08/18/2021, 08/19/2020, Additional history exists DEPRESSION SCREENING 11/12/2024 SCREENING FOR DIABETES 12/18/2027 5, 08/20/2024, 07/30/2024, Additional history exists HEPATITIS C SCREENING Completed [...] Management General On track( 025 9:54 AM BANQUET SERVER ON CALL) No Adeola Julio, RN Note: Expected end date: ongoing Interventions: Take all medications as prescribed Procedures Procedure Name Priority Date/Time Associated Diagnosis Comments US RETROPERITONEAL COMPLETE Routine 01/02/2025 1:56 PM BANQUET SERVER ON CALL Proteinuria, unspecified type Metastatic renal cell carcinoma, unspecified laterality (HCC) URINALYSIS NO MICROSCOPIC NO CULTURE STAT 12/22/2024 1:06 PM BANQUET SERVER ON CALL Malignant neoplasm of kidney excluding renal pelvis, unspecified laterality (HCC) CBC W AUTO DIFFERENTIAL STAT 12/22/19 25 1:06 PM BANQUET SERVER ON CALL Malignant neoplasm of kidney excluding renal pelvis, unspecified laterality (HCC) URINALYSIS REFLEX TO MICROSCOPIC NO CULTURE Routine 12/18/2024 9:52 AM BANQUET SERVER ON CALL Proteinuria, unspecified type Metastatic renal cell carcinoma, unspecified laterality (HCC) PROTEIN CREATININE RATIO URINE RANDOM PNL Routine 12/18/2024 9:52 AM BANQUET SERVER ON CALL Proteinuria, unspecified type Metastatic renal cell carcinoma, unspecified laterality (HCC) SYPHILIS (T PALLIDUM) DONOR Routine 12/18/2024 9:51 AM BANQUET SERVER ON CALL Proteinuria, unspecified type Metastatic renal cell carcinoma, unspecified laterality (HCC) REF LAB-SPECIMEN STATUS REPORT Routine 12/18/2024 9:51 AM BANQUET SERVER ON CALL Proteinuria, unspecified type Metastatic renal cell carcinoma, unspecified laterality (HCC) IMMUNOFIXATION BLOOD Routine 12/18/2024 9:51 AM BANQUET SERVER ON CALL Proteinuria, unspecified type KAPPA/LAMBDA LITE CHAIN FREE PANEL Routine 12/18/2024 9:51 AM BANQUET SERVER ON CALL Proteinuria, unspecified type GLOMERULAR BASE MEMBRANE ANTIBODY IGG Routine 12/18/2024 9:51 AM BANQUET SERVER ON CALL Proteinuria, unspecified type Metastatic renal cell carcinoma, unspecified laterality (HCC) PHOSPHOLIPASE A2 RECEPTOR AB IGG RFLX TITER Routine 12/18/2024 9:51 AM BANQUET SERVER ON CALL Proteinuria, unspecified type Metastatic renal cell carcinoma, unspecified laterality (HCC) ANCA VASCULITIS PANEL Routine 12/18/2024 9:51 AM BANQUET SERVER ON CALL Proteinuria, unspecified type Metastatic renal cell carcinoma, unspecified laterality (HCC) CHERYL BLOOD SCREEN W/REFLEX TITER Routine 12/18/2024 9:51 AM BANQUET SERVER ON CALL Proteinuria, unspecified type Metastatic renal cell carcinoma, unspecified laterality (HCC) COMPLEMENT C4 Routine 12/18/2024 9:51 AM BANQUET SERVER ON CALL Proteinuria, unspecified type Metastatic renal cell carcinoma, unspecified laterality (HCC) COMPLEMENT C3 Routine 12/18/2024 9:51 AM BANQUET SERVER ON CALL Proteinuria, unspecified type Metastatic renal cell carcinoma, unspecified laterality (HCC) HIV-1 HIV-2 ANTIBODY + HIV P24 AG PANEL Routine 12/18/2024 9:51 AM BANQUET SERVER ON CALL Proteinuria, unspecified type Metastatic renal cell carcinoma, unspecified laterality (HCC) CBC W/O DIFFERENTIAL Routine 12/18/2024 9:51 AM BANQUET SERVER ON CALL Proteinuria, unspecified type Metastatic renal cell carcinoma, unspecified laterality (HCC) RENAL FUNCTION PANEL Routine 12/18/2024 9:51 AM BANQUET SERVER ON CALL Proteinuria, unspecified type Metastatic renal cell carcinoma, unspecified laterality (HCC) DNA ANTIBODY DOUBLE STRANDED Routine 12/18/2024 9:51 AM BANQUET SERVER ON CALL Proteinuria, unspecified type Metastatic renal cell carcinoma, unspecified laterality (HCC) CT CHEST ABDOMEN PELVIS W CONT Routine 12/18/2024 9:15 AM BANQUET SERVER ON CALL 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) CREATININE - POCT INTERFACED Routine 12/18/2024 9:02 AM BANQUET SERVER ON CALL URINALYSIS REFLEX TO MICROSCOPIC NO CULTURE Routine 11/06/2024 11:56 AM BANQUET SERVER ON CALL Proteinuria, unspecified type LAB RESULTS ORDER 11/06/2024 HEPATITIS C RNA QUANTITATIVE Routine 03/17/2021 10:19 AM CDT Elevated liver enzymes from Last 3 Months or Most Recently Relevant to Health Maintenance Results * US Retroperitoneal Complete (01/02/2025 1:56 PM BANQUET SERVER ON CALL) Anatomical Region Laterality Modality Abdomen Ultrasound 01/02/2025 3:48 PM BANQUET SERVER ON CALL Impressions 01/02/2025 4:32 PM BANQUET SERVER ON CALL IMPRESSION: Mild left calyectasis. Right kidney surgically absent. No renal calculus or solid renal mass in the left kidney > Dictated by Dimitris Sewell MD, (secretary to the vice president). I, Devan Acevedo MD have personally reviewed and interpreted this examination/study. > Interpreting Provider: Devan Acevedo MD on 01/02/2025 4:32 PM Narrative 01/02/2025 4:32 PM BANQUET SERVER ON CALL PROCEDURE: US RETROPERITONEAL COMPLETE, DATE/TIME OF EXAM: 01/02/2025 1:56 PM, LOCATION [facility] INDICATION: R80.9: Proteinuria, unspecified type C64.9: Metastatic [...] COMPLETE, DATE/TIME OF EXAM: 51:56 PM, LOCATION [facility] INDICATION: R80.9: Proteinuria, unspecified type C64.9: Metastatic [...] kidney > Dictated by Dimitris Sewell MD, (secretary to the vice president). I, Devan Acevedo MD have personally reviewed and interpreted this examination/study. > Interpreting Provider: Devan Acevedo MD on 01/02/2025 4:32 PM Tito Schwartz MD ORDERABLES * (ABNORMAL) URINALYSIS NO MICROSCOPIC NO CULTURE (12/22/2024 1:06 PM BANQUET SERVER ON CALL) Color UA Straw Straw, Yellow 12/22/2024 1:54 PM [facility] Clarity UA Clear Clear 12/22/2024 1:54 PM [facility] Specific [place] UA 1.002(L) 1.005 - 1.030 12/22/2024 1:54 PM [facility] pH UA 6.0 5.0 - 8.0 pH 12/22/2024 1:54 PM [facility] Protein UA 2+(A) Negative 12/22/2024 1:54 PM [facility] Glucose UA 3+(A) Negative 12/22/2024 1:54 PM [facility] Ketone UA Negative Negative 12/22/2024 1:54 PM [facility] Bilirubin UA Negative Negative 12/22/2024 1:54 PM [facility] Blood UA Negative Negative 12/22/2024 1:54 PM [facility] Nitrite UA Negative Negative 12/22/2024 1:54 PM [facility] Leukocyte Esterase Negative Negative 12/22/2024 1:54 PM [facility] Urobilinogen UA Negative Negative mg/dL 12/22/2024 1:54 PM [facility] Urine URINE SPECIMEN OBTAINED BY CLEAN CATCH PROCEDURE / Unknown Collection / Unknown 12/22/2024 1:06 PM BANQUET SERVER ON CALL 12/22/2024 1:39 PM BANQUET SERVER ON CALL [facility] - 12/22/2024 1:54 PM BANQUET SERVER ON CALL Wai Tse MD LAB - URINALYSIS ORD ERABLES [facility] [address] [place] [address], [facility] [phone] * (ABNORMAL) CBC W AUTO DIFFERENTIAL (12/22/2024 1:06 PM BANQUET SERVER ON CALL) WBC 6.5 4.0 - 10.7 x10E9/L 12/22/2024 2:15 PM [facility] RBC Count 4.80 3.90 - 5.20 x10E12/L 12/22/2024 2:15 PM [facility] Hemoglobin 15.9(H) 11.9 - 15.8 g/dL 12/22/2024 2:15 PM [facility] Hematocrit 45.6 34.8 - 46.1 % 12/22/2024 2:15 PM [facility] MCV 95.0 80.0 - 98.0 fL 12/22/2024 2:15 PM [facility] MCH 33.1 26.7 - 33.6 pg 12/22/2024 2:15 PM [facility] MCHC 34.9 31.7 - 36.3 g/dL 12/22/2024 2:15 PM [facility] RDW-CV 13.3 11.3 - 14.8 % 12/22/2024 2:15 PM [facility] Platelet Count 274 150 - 420 x10E9/L 12/22/2024 2:15 PM [facility] MPV 10.2 7.8 - 11.4 fL 12/22/2024 2:15 PM [facility] Preliminary Absolute Neutrophil 4.40 1.60 - 7.50 x10E9/L 12/22/2024 2:15 PM [facility] Neutrophil % 68.0 41.0 - 74.0 % 12/22/2024 2:15 PM [facility] Lymphocyte % 21.0 17.0 - 47.0 % 12/22/2024 2:15 PM [facility] Monocyte % 7.4 3.0 - 11.0 % 12/22/2024 2:15 PM [facility] Eosinophil % 2.8 0.0 - 7.0 % 12/22/2024 2:15 PM [facility] Basophil % 0.5 0.0 - 1.6 % 12/22/2024 2:15 PM [facility] Immature Granulocytes % 0.3 0.0 - 1.0 % 12/22/2024 2:15 PM [facility] Neutrophil Absolute 4.40 1.60 - 7.50 x10E9/L 12/22/2024 2:15 PM [facility] Lymphocyte Absolute 1.36 1.00 - 4.40 x10E9/L 12/22/2024 2:15 PM [facility] Monocyte Absolute 0.48 0.15 - 1.00 x10E9/L 12/22/2024 2:15 PM [facility] Eosinophil Absolute 0.18 0.00 - 0.60 x10E9/L 12/22/2024 2:15 PM [facility] Basophil Absolute 0.03 0.00 - 0.13 x10E9/L 12/22/2024 2:15 PM [facility] Blood BLOOD SPECIMEN / Unknown Venipuncture / Unknown 12/22/2024 1:06 PM BANQUET SERVER ON CALL 12/22/2024 2:09 PM BANQUET SERVER ON CALL Wai Tse MD LAB - HEMATOLOGY ORD ERABLES [facility] [address] [place] [address], [facility] [phone] * (ABNORMAL) URINALYSIS REFLEX TO MICROSCOPIC NO CULTURE (12/18/2024 9:52 AM BANQUET SERVER ON CALL) Only the most recent of2 resultswithin the time period is included. Color UA Yellow Straw, Yellow 12/18/2024 10:37 AM [facility] Clarity UA Clear Clear 12/18/2024 10:37 AM [facility] Specific [place] UA 1.003(L) 1.005 - 1.030 12/18/2024 10:37 AM [facility] pH UA 6.0 5.0 - 8.0 pH 12/18/2024 10:37 AM [facility] Protein UA 2+(A) Negative 12/18/2024 10:37 AM [facility] Glucose UA 3+(A) Negative 12/18/2024 10:37 AM [facility] Ketone UA Negative Negative 12/18/2024 10:37 AM [facility] Bilirubin UA Negative Negative 12/18/2024 10:37 AM [facility] Blood UA Negative Negative 12/18/2024 10:37 AM [facility] Nitrite UA Negative Negative 12/18/2024 10:37 AM [facility] Leukocyte Esterase Negative Negative 12/18/2024 10:37 AM [facility] Urobilinogen UA Negative Negative mg/dL 12/18/2024 10:37 AM [facility] RBC UA 3-5 None Seen, 0-2, 3-5 /HPF 12/18/2024 10:37 AM [facility] WBC UA 0-5 None Seen, 0-5 /HPF 12/18/2024 10:37 AM [facility] Bacteria UA Trace(A) None /HPF 12/18/2024 10:37 AM [facility] Squamous Epithelial Cells UA 0-2 None Seen, 0-2, 3-5 /HPF 12/18/2024 10:37 AM [facility] Mucus UA 1+ /LPF 12/18/2024 10:37 AM [facility] Urine URINE SPECIMEN OBTAINED BY CLEAN CATCH PROCEDURE / Unknown Collection / Unknown 12/18/2024 9:52 AM [facility] 12/18/2024 10:15 AM [facility] - 12/18/2024 10:37 AM [facility] Tito Schwartz MD LAB - URINALYSIS ORD ERABLES [address] [address], [facility] [phone] * (ABNORMAL) PROTEIN CREATININE RATIO URINE RANDOM PNL (12/18/2024 9:52 AM [facility]) Protein Urine 102 Not Established mg/dL 12/18/2024 11:08 AM [facility] Creatinine Urine 33.98 Not Established mg/dL 12/18/2024 11:08 AM [facility] Protein/Creati nine Ratio Urine 3.00(H) <0.10 12/18/2024 11:08 AM [facility] Urine URINE SPECIMEN OBTAINED BY CLEAN CATCH PROCEDURE / Unknown Collection / Unknown 12/18/2024 9:52 AM BANQUET SERVER ON CALL 12/18/2024 10:15 AM BANQUET SERVER ON CALL Tito Schwartz MD LAB - URINE CHEMISTR Y ORDERABLES [facility] [address] [address], [facility] [phone] * SYPHILIS (T PALLIDUM) DONOR (12/18/2024 9:51 AM BANQUET SERVER ON CALL) Donor Syphilis (T pallidum) Non Reactive Non Reactive 12/27/2024 7:08 PM BANQUET SERVER ON CALL [facility] ([facility]) Comment: Test performed with [facility] CAPTIA Syphilis (T pallidum)-G kit. Blood BLOOD SPECIMEN / Unknown Lab Venipuncture / Unknown 12/18/2024 9:51 AM BANQUET SERVER ON CALL 12/18/2024 10:16 AM BANQUET SERVER ON CALL Narrative [facility] ([facility]) - 12/27/2024 7:08 PM BANQUET SERVER ON CALL Performed at: [facility] [employer] [address] [id number] Manager Legal: Jon Pinedo [facility], Phone: [phone] Tito Schwartz MD LAB - CHEMISTRY ORDE RABLES [facility] ([facility]) [address] [place] [address] * PHOSPHOLIPASE A2 RECEPTOR AB IGG RFLX TITER (12/18/2024 9:51 AM BANQUET SERVER ON CALL) Phospholipase A2 Receptor IgG <1:10 <1:10 12/20/2024 4:22 PM BANQUET SERVER ON CALL [facility] [employer] ([facility]) Comment: Phospholipase A2 Receptor Antibody, IgG is not detected. No further testing will be performed. Performed By: [employer] [address] [place] [address] Banquet Cook: Tucker Hernandez MD, PhD CLIA Number: [id number] Blood BLOOD SPECIMEN / Unknown Lab Venipuncture / Unknown 12/18/2024 9:51 AM BANQUET SERVER ON CALL 12/18/2024 10:16 AM BANQUET SERVER ON CALL Tito Schwartz MD LAB - CHEMISTRY HELENA LANDA [facility] ([facility]) [address] [place], [place] [address] * HIV-1 HIV-2 ANTIBODY + HIV P24 AG PANEL (12/18/2024 9:51 AM BANQUET SERVER ON CALL) Pathologist [facility] HIV Antigen/Antibod y 1 & 2 Non-reacti ve Non-react nafisa 12/18/2024 11:31 AM BANQUET SERVER ON CALL [facility] Comment:No Laboratory eviden ce of HIV infection. Blood BLOOD SPECIMEN / Unknown Lab Venipuncture / Unknown 12/18/2024 9:51 AM BANQUET SERVER ON CALL 12/18/2024 10:16 AM BANQUET SERVER ON CALL Tito Schwartz MD LAB - CHEMISTRY HELENA LANDA Performing Organization Address City/[facility]/ZIP Co de Phone Number [facility] [address] [address], [facility] [phone] * REF LAB-SPECIMEN STATUS REPORT (12/18/2024 9:51 AM BANQUET SERVER ON CALL) Specimen Status Report Comment 12/22/2024 5:07 PM BANQUET SERVER ON CALL [facility] ([facility]) Comment: Written Authorization Written Authorization Written Authorization Received. Authorization received from [employer] 12-22-2024 Logged by Faye Villafana Blood BLOOD SPECIMEN / Unknown Lab Venipuncture / Unknown 12/18/2024 9:51 AM BANQUET SERVER ON CALL 12/18/2024 10:16 AM BANQUET SERVER ON CALL Narrative [facility] ([facility]) - 12/22/2024 5:07 PM BANQUET SERVER ON CALL Performed at: [address] [place] [address] [address] [place], [place] [id number] Manager Legal: Alejandro Doshi PhD, Phone: [phone] Tito Schwartz MD LAB - CHEMISTRY HELENA LANDA [facility] ([facility]) [address] [place] [address], [facility] * IMMUNOFIXATION BLOOD (12/18/2024 9:51 AM BANQUET SERVER ON CALL) [facility] Immunofixation Serum Normal Pattern Normal Pattern 12/19/2024 3:30 PM BANQUET SERVER ON CALL [facility] Comment: No monoclonal immunoglobulin detected by serum immunosubtraction. Margie Rinaldi PhD, [facility] Clinical Negative Cleaner seed district sales manager *The electrophoresis pattern and the interpretation have been reviewed and verified by the teaching physician. Blood BLOOD SPECIMEN / Unknown Lab Venipuncture / Unknown 12/18/2024 9:51 AM BANQUET SERVER ON CALL 12/18/2024 10:16 AM BANQUET SERVER ON CALL Tito Schwartz MD LAB - CHEMISTRY HELENA LANDA [facility] [address] [place] [address], [facility] [phone] * ANCA VASCULITIS PANEL (12/18/2024 9:51 AM BANQUET SERVER ON CALL) [facility] Myeloperoxidase Antibody 0 0 - 19 AU/mL 12/21/2024 12:18 PM BANQUET SERVER ON CALL [facility] ([facility]) Comment: INTERPRETIVE INFORMATION: Myeloperoxidase Abs, IgG 19 AU/mL or Less ......... Negative 20-25 AU/mL .............. Equivocal 26 AU/mL or Greater ...... Positive Approximately 90% of patients with a P-ANCA pattern by IFA have antibodies specific for MPO. Serine Proteinase 3 IgG 3 0 - 19 AU/mL 12/21/2024 12:18 PM BANQUET SERVER ON CALL [facility] ([facility]) Comment: INTERPRETIVE INFORMATION: Serine Proteinase 3, IgG 19 AU/mL or Less ........ Negative 20-25 AU/mL ............. Equivocal 26 AU/mL or Greater ..... Positive Approximately 85% of patients with a C-ANCA pattern by IFA have antibodies specific for PR3. ANCA Titer IFA <1:20 <1:20 12/21/2024 12:18 PM BANQUET SERVER ON CALL [facility] ([facility]) ANCA Pattern IFA None Detected None Detected 12/21/2024 12:18 PM BANQUET SERVER ON CALL [facility]) Comment: INTERPRETIVE INFORMATION: ANCA IFA Pattern Neutrophil Cytoplasmic Antibodies (C-ANCA = granular cytoplasmic staining, P-ANCA = perinuclear staining) are found in the serum of over 90 percent of patients with certain necrotizing systemic vasculitides, and usually in less than 5 percent of patients with collagen vascular disease or arthritis. Performed By: [facility] [employer] [address] [place] [address] Banquet Cook: Tucker Hernandez MD, PhD CLIA Number: [id number] Blood BLOOD SPECIMEN / Unknown Lab Venipuncture / Unknown 12/18/2024 9:51 AM BANQUET SERVER ON CALL 12/18/2024 10:55 AM BANQUET SERVER ON CALL Tito Schwartz MD LAB - CHEMISTRY [place] [facility] Organization Address City/State/ZIP Co de Phone Number [facility]) [address] [place] [address], [facility] * CHERYL BLOOD SCREEN W/REFLEX TITER (12/18/2024 9:51 AM BANQUET SERVER ON CALL) CHERYL IgG None Detected None Detected 12/20/2024 5:47 AM BANQUET SERVER ON CALL [facility] ([facility]) Comment: If suspicion of connective tissue disease is strong and CHERYL EIA is negative, consider testing for CHERYL by IFA ([id number]). INTERPRETIVE INFORMATION: Anti-Nuclear Antibodies (CHERYL), IgG by ERNESTO Antinuclear Antibodies (CHERYL), IgG by ERNESTO: CHERYL specimens are screened using enzyme-linked immunosorbent assay (ERNESTO) methodology. All ERNESTO results reported as Detected are further tested by indirect fluorescent assay (IFA) using HEp-2 substrate with an IgG-specific conjugate. The CHERYL ERNESTO screen is designed to detect antibodies against dsDNA, histones, SS-A (Ro), SS-B (La), Richey, Richey/PIZZAMAKER, Scl-70, More-1, centromeric proteins, other antigens extracted from the HEp-2 cell nucleus. CHERYL ERNESTO assays have been reported to have lower sensitivities than CHERYL IFA for systemic autoimmune rheumatic diseases (SARD). Negative results do not necessarily rule out SARD. Performed By: [facility] [address] [place] [address] Banquet Cook: Tucker Hernandez MD, PhD CLIA Number: [id number] Blood BLOOD SPECIMEN / Unknown Lab Venipuncture / Unknown 12/18/2024 9:51 AM BANQUET SERVER ON CALL 12/18/2024 10:16 AM BANQUET SERVER ON CALL Tito Schwartz MD LAB - CHEMISTRY ORDE CORDELL [facility] Organization Address City/State/ZIP Co de Phone Number [facility]) [address] [place] [address], [facility] * GLOMERULAR BASE MEMBRANE ANTIBODY IGG (12/18/2024 9:51 AM BANQUET SERVER ON CALL) GBM Antibody IgG (EU) 0 0 - 19 AU/mL 12/21/2024 12:22 PM BANQUET SERVER ON CALL [facility] ([facility]) Comment: INTERPRETIVE INFORMATION: GBM Ab, IgG by [...] and assessment of renal prognosis. Performed By: [facility] [address] [place] [address] Banquet Cook: Tucker Hernandez MD, PhD CLIA Number: [id number] Blood BLOOD SPECIMEN / Unknown Lab Venipuncture / Unknown 12/18/2024 9:51 AM BANQUET SERVER ON CALL 12/18/2024 10:16 AM BANQUET SERVER ON CALL Tito Schwartz MD LAB - CHEMISTRY ORDE RABLES Performing Organization Address [facility]/State/ZIP Co de Phone Number [facility]) [address] [place] [address] * DNA ANTIBODY DOUBLE STRANDED (12/18/2024 9:51 AM BANQUET SERVER ON CALL) dsDNA Antibody 10 0 - 24 IU 12/20/2024 12:22 AM BANQUET SERVER ON CALL [facility] ([facility]) Comment: INTERPRETIVE INFORMATION: Double-Stranded DNA (dsDNA) Ab IgG ERNESTO 24 IU or less........Negative 25-30 IU.............Borderline Positive 30-60 IU.............Low Positive 60-200 IU............Positive 201 IU or greater....Strong Positive Positivity for anti-double stranded DNA (anti-dsDNA) IgG antibody is a diagnostic criterion of systemic lupus erythematosus (SLE). Specimens are initially screened by enzyme-linked immunosorbent assay (ERNESTO). If ordered as reflex ([id number]), positive ERNESTO results (>24 IU) will be [...] recommendations for testing may be found at [email or web address]. Performed by [facility], [address] [place] [address] [email or web address], Balaji Torres MD, Lab. Director CLIA Number: [id number] Blood BLOOD SPECIMEN / Unknown Lab Venipuncture / Unknown 12/18/2024 9:51 AM BANQUET SERVER ON CALL 12/18/2024 10:16 AM BANQUET SERVER ON CALL Tito Schwartz MD LAB - HEMATOLOGY ORD ERABLES [facility]) [address] * (ABNORMAL) KAPPA/LAMBDA LITE CHAIN FREE PANEL (12/18/2024 9:51 AM BANQUET SERVER ON CALL) Pathologist [facility] [place] Quant Free Light Chain 20.59(H) 3.30 - 19.40 mg/L 12/20/2024 5:06 AM BANQUET SERVER ON CALL [facility] ([facility]) Comment: INTERPRETIVE INFORMATION: [place] Qnt Free Light Chains Undetected antigen excess is a rare event but cannot be excluded. Free light chain results should always be interpreted in conjunction with other clinical and laboratory findings. Lambda Free Light Chain Quantitative 16.76 5.71 - 26.30 mg/L 12/20/2024 5:06 AM BANQUET SERVER ON CALL [facility] ([facility]) Comment: INTERPRETIVE INFORMATION: Lambda Qnt Free Light Chains Undetected antigen excess is a rare event but cannot be excluded. Free light chain results should always be interpreted in conjunction with other clinical and laboratory findings. [place]/Lambda Free Light Chain ratio 1.23 0.26 - 1.65 12/20/2024 5:06 AM BANQUET SERVER ON CALL [facility] ([facility]) Comment: Performed By: [facility] [address] [place] [address] Banquet Cook: Tucker Hernandez MD, PhD CLIA Number: [id number] Blood BLOOD SPECIMEN / Unknown Lab Venipuncture / Unknown 12/18/2024 9:51 AM BANQUET SERVER ON CALL 12/18/2024 10:16 AM BANQUET SERVER ON CALL Tito Schwartz MD LAB - CHEMISTRY HELENA LANDA [facility] Organization Address City/State/ZIP Co de Phone Number [facility] [facility]) [address] * CBC W/O DIFFERENTIAL (12/18/2024 9:51 AM BANQUET SERVER ON CALL) [facility] WBC 4.8 4.0 - 10.7 x10E9/L 12/18/2024 10:45 AM BANQUET SERVER ON CALL [facility] RBC Count 4.80 3.90 - 5.20 x10E12/L 12/18/2024 10:45 AM BANQUET SERVER ON CALL [facility] Hemoglobin 15.6 11.9 - 15.8 g/dL 12/18/2024 10:45 AM [facility] Hematocrit 45.8 34.8 - 46.1 % 12/18/2024 10:45 AM [facility] MCV 95.4 80.0 - 98.0 fL 12/18/2024 10:45 AM [facility] MCH 32.5 26.7 - 33.6 pg 12/18/2024 10:45 AM [facility] MCHC 34.1 31.7 - 36.3 g/dL 12/18/2024 10:45 AM [facility] RDW-CV 13.4 11.3 - 14.8 % 12/18/2024 10:45 AM [facility] Platelet Count 225 150 - 420 x10E9/L 12/18/2024 10:45 AM [facility] MPV 9.9 7.8 - 11.4 fL 12/18/2024 10:45 AM [facility] Blood BLOOD SPECIMEN / Unknown Lab Venipuncture / Unknown 12/18/2024 9:51 AM BANQUET SERVER ON CALL 12/18/2024 10:35 AM BANQUET SERVER ON CALL Tito Schwartz MD LAB - HEMATOLOGY ORD ERABLES [address] [address], [facility] [phone] * COMPLEMENT C4 (12/18/2024 9:51 AM BANQUET SERVER ON CALL) Complement C4 43 15 - 57 mg/dL 12/18/2024 11:09 AM [facility] Blood BLOOD SPECIMEN / Unknown Lab Venipuncture / Unknown 12/18/2024 9:51 AM BANQUET SERVER ON CALL 12/18/2024 10:34 AM BANQUET SERVER ON CALL Tito Schwartz MD LAB - SEROLOGY ORDER HARJINDER [address] [address], [facility] [phone] * (ABNORMAL) RENAL FUNCTION PANEL (12/18/2024 9:51 AM BANQUET SERVER ON CALL) BUN 11 7 - 26 mg/dL 12/18/2024 11:09 AM [facility] Creatinine 0.93 0.56 - 0.96 mg/dL 12/18/2024 11:09 AM [facility] Sodium 138 136 - 145 mmol/L 12/18/2024 11:09 AM [facility] Potassium 3.6 3.5 - 4.5 mmol/L 12/18/2024 11:09 AM [facility] Chloride 103 98 - 107 mmol/L 12/18/2024 11:09 AM [facility] CO2 23 22 - 29 mmol/L 12/18/2024 11:09 AM [facility] Glucose 85 70 - 99 mg/dL 12/18/2024 11:09 AM [facility] Albumin 4.3 3.4 - 5.0 g/dL 12/18/2024 11:09 AM [facility] Calcium 10.4(H) 8.4 - 10.2 mg/dL 12/18/2024 11:09 AM [facility] Phosphorus 3.3 2.9 - 5.1 mg/dL 12/18/2024 11:09 AM [facility] Anion Gap 12 6 - 16 12/18/2024 11:09 AM [facility] BUN/Creatinine Ratio 12 7 - 23 12/18/2024 11:09 AM [facility] Osmolality Calculated 285 275 - 295 mOsm/kg 12/18/2024 11:09 AM [facility] eGFR by CKD-EPI 68(L) >=90 mL/min/1.7 3 m2 12/18/2024 11:09 AM [facility] Blood BLOOD SPECIMEN / Unknown Lab Venipuncture / Unknown 12/18/2024 9:51 AM [facility] 12/18/2024 10:34 AM [facility] Tito Schwartz MD LAB - CHEMISTRY ORDE CORDELL [facility] Organization Address City/State/ZIP Co de Phone Number [facility] [address] [place] [address], [facility] [phone] * COMPLEMENT C3 (12/18/2024 9:51 AM BANQUET SERVER ON CALL) Complement C3 161 82 - 193 mg/dL 12/18/2024 11:09 AM BANQUET SERVER ON CALL [facility] Blood BLOOD SPECIMEN / Unknown Lab Venipuncture / Unknown 12/18/2024 9:51 AM BANQUET SERVER ON CALL 12/18/2024 10:34 AM BANQUET SERVER ON CALL Tito Schwartz MD LAB - CHEMISTRY HELENA LANDA [facility] [address] [place] [address], [facility] [phone] * CT Chest Abdomen Pelvis W Cont (12/18/2024 9:15 AM BANQUET SERVER ON CALL) Anatomical Region Laterality Modality Chest, Abdomen, Pelvis Computed Tomography 12/18/2024 9:27 AM BANQUET SERVER ON CALL Impressions 12/18/2024 10:32 AM BANQUET SERVER ON CALL Impression: 1.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 2.No evidence of metastatic disease within the chest, abdomen, or pelvis. > Dictated by Florentino Duncan MD, (secretary to the vice president). I, Maribel Reyes MD have personally reviewed and interpreted this examination/study. > Interpreting Provider: Maribel Reyes MD on 12/18/2024 10:32 AM Narrative 12/18/2024 10:32 AM BANQUET SERVER ON CALL PROCEDURE: CT CHEST ABDOMEN PELVIS W CONT, DATE/TIME OF EXAM: 12/18/2024 9:16 AM, LOCATION [facility] INDICATION: C78.02: Malignant neoplasm metastatic to left [...] DATE/TIME OF EXAM: 12/18/2024 9:16 AM, LOCATION [facility] INDICATION: C78.02: Malignant neoplasm metastatic to left [...] orpelvis. > Dictated by Florentino Duncan MD, (secretary to the vice president). I, Maribel Reyes MD have personally reviewed and interpreted this examination/study. > Interpreting Provider: Maribel Reyes MD on 510:32 AM Ronnie Mcqueen MD CT ORDERABLES * (ABNORMAL) CREATININE - POCT INTERFACED (12/18/2024 9:02 AM BANQUET SERVER ON CALL) Creatinine POCT 0.75 0.30 - 1.30 mg/dL 12/18/2024 9:08 AM BANQUET SERVER ON CALL [facility] eGFR 88(L) >=90 mL/min/1.7 3 m2 12/18/2024 9:08 AM BANQUET SERVER ON CALL [facility] Blood BLOOD SPECIMEN / Unknown 12/18/2024 9:02 AM BANQUET SERVER ON CALL 12/18/2024 9:08 AM BANQUET SERVER ON CALL Ronnie Mcqueen MD LAB - POINT OF CARE ORDERABLES [facility] [address] [place] [address], [facility] [phone] * LAB RESULTS ORDER (11/06/2024) 11/06/2024 Narrative 11/06/2024 Ordered by an unspecified provider. Scanned Document LAB - THERAPEUTIC DR MEDARDO MONITORING ORDERABLES * HEPATITIS C RNA QUANTITATIVE (03/17/2021 10:19 AM CDT) [facility] Hepatitis C RNA PCR, Interp Not detected Not detected 03/21/2021 3:48 PM CDT [facility] Blood BLOOD SPECIMEN / Unknown Lab Venipuncture / Unknown 03/17/2021 10:19 AM CDT 03/17/2021 10:35 AM CDT Narrative [facility] - 03/21/2021 3:48 PM CDT The Hepatitis C viral (HCV) RNA analysis utilized a serum sample, real-time reverse silk presser PCR, and is reported as Not Detected, [...] the isolation of HCV RNA with reverse silk presser of genomic HCV RNA followed by real-time PCR in the presence of an unrelated RNA internal control. The internal control ensures that RNA is isolated, and that no general significant inhibitors of the RT-PCR process are present. The analysis was performed using a U.S. FDA approved test methodology (Garcia Real Time HCV). Jessica Padron ADULT LIVE IN CAREGIVER-POLICE RESERVES COMMANDER LAB - CHEMIS TRY ORDERABLES [facility] [address] [place] [address], [facility] [phone] from Last 3 Months or Most Recently Relevant to Health Maintenance Advance Directives * Full Code (Latest Code Status on File) Date Activated Date Inactivated Comments 01/01/2020 1:07 PM 01/02/2020 11:33 AM Care Teams Mold Cleaner Relationship Specialty Start Date End Date Myriam Jorgensen MD [address] [place], [place] [id number] PCP - General 10/16/22
--- OUTSIDE RECORDS SUMMARY | 2025-01-05 13:52 | XMS_ITS | Encounter Summary ---
Author Organization [facility] Address [address] [facility] [place] [address] Care Team Providers Care Boulevard Glassware Replacer Name Role Phone Marycarmen Pascal MD Primary Care Provider [phone] Myriam Jorgensen MD Primary Care Provider + Marycarmen Pascal MD Primary Care Provider [phone] Myriam Jorgensen MD Primary Care Provider + Marycarmen Pascal MD Primary Care Provider + Myriam Jorgensen MD Primary Care Provider + Allyson Snowden Primary Care Provider + Myriam Jorgensen MD Primary Care Provider + Encounter Details Date Type Department Care Team (Late st Contact Info) Description 01/06/2020 Lab Requisition [facility] Care Pathology Lab [address] [place] [address] Johnie Mendiola MD [address] [place] [address] Social History Tobacco Use Types Packs/Day Years [...] st Contact Info) Description 01/13/2025 9:00 AM WEB DEVELOPMENT MANAGER Office Visit [facility] - Nephrology [address] [facility], [facility] [place] [id number] Tito Schwartz MD [facility] [place] [address] 03/23/2025 1:40 PM CDT Office Visit [facility] - Hematology/Oncology [address] [place] [phone] Wai Tse MD [address] [place] [address] DIV OF HEMATOLOGY & [place] [address] 04/02/2025 10:00 AM CDT Appointment [facility] [address] [place] [id number] Ronnie Mcqueen MD [address] [place] [address] 04/07/2025 9:30 AM CDT Appointment [facility] RAD [facility] [address] [place] [address] Ronnie Mcqueen MD [address] [place] [address] documented as of this encounter Procedures Procedure Name Priority Date/Time Associated Diagnosis Comments SLIDE PREP HISTOLOGY Routine 01/01/2020 8:42 AM WEB DEVELOPMENT MANAGER documented in this encounter Results * SLIDE PREP HISTOLOGY (01/01/2020 8:42 AM WEB DEVELOPMENT MANAGER) Client Specimen ID # [id number] 01/07/2020 6:02 PM WEB DEVELOPMENT MANAGER [facility] PATHOLOGY LAB Number of Blocks Received 0 01/07/2020 6:02 PM WEB DEVELOPMENT MANAGER [facility] PATH[facility] LAB Number of Slides 1 01/07/2020 6:02 PM WEB DEVELOPMENT MANAGER [facility] PATH[facility] LAB Number of Control Slides 1 01/07/2020 6:02 PM WEB DEVELOPMENT MANAGER [facility] PATHOLOGY LAB Pathology/Cytolo gy BIOPSY OF LUNG / Unknown 01/01/2020 8:42 AM WEB DEVELOPMENT MANAGER 01/06/2020 3:30 PM WEB DEVELOPMENT MANAGER Johnie Baum MD LAB - PATHOLOGY/CYTO LOGY ORDERABLES Performing Organization Address City/State/[facility] Co de Phone Number [facility] PATHOLOGY LAB [address] [phone] documented in this encounter Visit Diagnoses Not on filedocumented in this encounter Care Teams Boulevard Glassware Replacer Relationship Specialty Start Date End Date Marycarmen Pascal MD PCP - General 03/27/19 06/21/21 [place] [address] [place] [address] PCP - General Family Medicine 06/22/21 09/03/21 Marycarmen Pascal MD PCP - General 09/04/21 10/18/21 Myriam Jorgensen MD [address] [place] [address] PCP - General Family Medicine 10/19/21 10/19/21 Marycarmen Pascal MD PCP - General 10/20/21 12/08/21 Myriam Jorgensen MD [address] [place] [address] PCP - General Family Medicine 12/09/21 10/11/22 [place] [address] [place] [address] PCP - General Physician Manager Copy 10/12/22 10/15/22 Myriam Jorgensen MD [address] [place] [address] PCP - General 10/16/22 documented as of this encounter
--- OUTSIDE RECORDS SUMMARY | 2025-01-05 13:52 | XMS_ITS | Referral Summary ---
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 Active amLODIPine (NORVASC) 10 mg tablet TK 1 T PO QD 0 Active Active Problems Problem Noted Date Diagnosed Date S/p nephrectomy 09/23/2019 Primary osteoarthritis of right hip 06/02/2019 Overview (06/02/2019): Added automatically from request for surgery [id number] Primary malignant neoplasm 02/01/2014 Other pulmonary embolism [...] 04/17/2011 09/23/2019 Breast cancer, female 04/06/20062018 Immunizations Immunization Administration Dates Next Due Influenza, Unspecified 08/12/2019 Social History Tobacco Use Types Packs/Day Years Used Date Smoking Tobacco: Former Cigarettes 0.1 2 1 978 - 1980 Smokeless Tobacco: Never Comments No Sex and Gender Information Value Date Recorded Sex Assigned at Not on file Legal Sex Female 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 [employer] Gender Identity Not on file Sexual Orientation Not on file Last Filed Vital Signs Vital Sign Reading Time Taken Comments Blood Pressure 127/58 09/24/2019 2:58 PM [employer] Pulse 74 09/24/2019 2:58 PM [employer] Temperature 36.8 C (98.2 F) 09/24/2019 11:27 AM [employer] Respiratory Rate 18 09/24/2019 11:27 AM [employer] Oxygen Saturation 96% 09/24/2019 2:58 PM [employer] Inhaled Oxygen Concentration - - Weight 86.3 kg (190 lb 3.2 oz) 10/19/2020 9:55 A M [employer] Height 161.3 cm (5' 3.5 ) 10/19/2020 9:55 AM [employer] Body Mass Index 33.16 10/19/2020 9:55 AM [employer] Plan of Treatment Not on file Medical Devices Implanted Type Area Wafer Machine Operator Device Identifier Shelf Expiration Date Model / Serial / Lot [employer] [id number] Screw Bone Trident Ii L25mm Od6.5mm Low Profile Hexagonal Sterile - S0 - [id number] Implanted:Qty: 1 on 09/23/2019 by Heber Whittaker MD at [facility] Screw Right: Hip [employer] [id number] 05/05/2024 8179-1022 / 0 / [id number] Description: Hip Left: Hip [employer] 6830-2466 Screw Bone Trident Ii L30mm Od6.5mm Low Profile Hexagonal Sterile - S0 - [id number] Implanted:Qty: 1 on 09/23/2019 by Heber Whittaker MD at [facility] Right: Hip [employer] [id number] 05/27/2024 5056-3443 / 0 / [id number] Description: [employer] 702-04-58f Shell Acetabular Trident Ii Tritanium F Od58mm Hip 5 Screw Hole Cluster Sterile - S0 - [id number] Implanted:Qty: 1 on 09/23/2019 by Heber Whittaker MD at [facility] Right: Hip [employer] [id number] 04/14/2024 702-04-58F / 0 / [id number] Description: [employer] 623-00-36f 36mm 7.9mm Hip 0d F Liner Acetabular X3 - S0 - [id number] Implanted:Qty: 1 on 09/23/2019 by Heber Whittaker MD at [facility] Right: Hip [employer] [id number] 06/14/2024 623-00-36F / 0 / [id number] Description: [employer] [id number] Accolade 102mm 30mm Modular Hip 127d 3 Taper Stem Femoral Sterile - S0 - [id number] Implanted:Qty: 1 on 09/23/2019 by Heber Whittaker MD at [facility] Right: Hip [employer] [id number] / 0 / [id number] Description: [employer] 6570-0-236 V40 36mm Anatomic Hip +5mm Offset Taper Head Femoral [employer] Delta - [id number] Implanted:Qty: 1 on 09/23/2019 by Heber Whittaker MD at [facility] Right: Hip [employer] [id number] 07/29/2024 6570-0-236 / / [id number] Description:kf Insurance [facility] Advance Directives For more information, please contact: [phone] * Full Code (Latest Code Status on File) Date Activated Date Inactivated Comments 09/23/2019 4:16 PM 09/24/2019 10:29 PM Care Teams Pot Holder Binder Relationship Specialty Start Date End Date Marycarmen Ruiz MD PCP - General Family Practice 04/28/19
--- OUTSIDE RECORDS SUMMARY | 2025-01-05 13:52 | XMS_ITS | Patient Health Summary ---
Author Organization [facility] [employer] Address [address] [place] [address] Care Team Providers Care Psychiatric Clinician Name Role Phone Myriam Jorgensen MD Primary Care Provider [phone] [facility],non-owned Affiliates and Associated Physician Practices is amultiple site organization consisting of ambulatory clinics and hospital sitesin [place], [place], [place] and [place]. This disclosure is being madepursuant to the Care Everywhere program and may not contain all information available regarding this patient. Last updated 18.[facility] Allergies * Hydrochlorothiazide(Other) Medications * Be aware [...] Comments Blood Pressure 146/82 12/23/2024 9:05 AM EQUIPMENT SUPERINTENDENT Pulse 62 12/23/2024 9:05 AM EQUIPMENT SUPERINTENDENT Temperature 36.6 C (97.9 F) 12/23/2024 9:05 AM EQUIPMENT SUPERINTENDENT Respiratory Rate 18 12/23/2024 9:05 AM EQUIPMENT SUPERINTENDENT Oxygen Saturation 95% 12/23/2024 9:05 AM EQUIPMENT SUPERINTENDENT Inhaled Oxygen Concentration - - Weight 91.4 kg (201 lb 6.4 oz) 12/23/2024 9:05 A M EQUIPMENT SUPERINTENDENT Height 165.1 cm (5' 5 ) 06/18/2024 10:23 AM CDT Body Mass Index 33.51 06/18/2024 10:23 AM CDT Procedures * US RETROPERITONEAL COMPLETE(Performed 01/02/2025) Performed for Proteinuria, unspecified type, Metastatic renal cell carcinoma, unspecified laterality (HCC) * URINALYSIS NO MICROSCOPIC NO CULTURE(Performed 12/22/2024) Performed for Malignant neoplasm of kidney excluding renal pelvis, unspecified laterality (HCC) * CBC W AUTO DIFFERENTIAL(Performed 12/22/2024) Performed for Malignant neoplasm of kidney excluding renal pelvis, unspecified laterality (HCC) * URINALYSIS REFLEX TO MICROSCOPIC NO CULTURE(Performed 12/18/2024) Performed for Proteinuria, unspecified type, Metastatic renal cell carcinoma, unspecified laterality (HCC) * PROTEIN CREATININE RATIO URINE RANDOM PNL(Performed 12/18/2024) Performed for Proteinuria, unspecified type, Metastatic renal cell carcinoma, unspecified laterality (HCC) * SYPHILIS (T PALLIDUM) DONOR(Performed 12/18/2024) Performed for Proteinuria, unspecified type, Metastatic renal cell carcinoma, unspecified laterality (HCC) * REF LAB-SPECIMEN STATUS REPORT(Performed 12/18/2024) Performed for Proteinuria, unspecified type, Metastatic renal cell carcinoma, unspecified laterality (HCC) * IMMUNOFIXATION BLOOD(Performed 12/18/2024) Performed for Proteinuria, unspecified type * KAPPA/LAMBDA LITE CHAIN FREE PANEL(Performed 12/18/2024) Performed for Proteinuria, unspecified type * GLOMERULAR BASE MEMBRANE ANTIBODY IGG(Performed 12/18/2024) Performed for Proteinuria, unspecified type, Metastatic renal cell carcinoma, unspecified laterality (HCC) * PHOSPHOLIPASE A2 RECEPTOR AB IGG RFLX TITER(Performed 12/18/2024) Performed for Proteinuria, unspecified type, Metastatic renal cell carcinoma, unspecified laterality (HCC) * ANCA VASCULITIS PANEL(Performed 12/18/2024) Performed for Proteinuria, unspecified type, Metastatic renal cell carcinoma, unspecified laterality (HCC) * CHERYL BLOOD SCREEN W/REFLEX TITER(Performed 12/18/2024) Performed for Proteinuria, unspecified type, Metastatic renal cell carcinoma, unspecified laterality (HCC) * COMPLEMENT C4(Performed 12/18/2024) Performed for Proteinuria, unspecified type, Metastatic renal cell carcinoma, unspecified laterality (HCC) * COMPLEMENT C3(Performed 12/18/2024) Performed for Proteinuria, unspecified type, Metastatic renal cell carcinoma, unspecified laterality (HCC) * HIV-1 HIV-2 ANTIBODY + HIV P24 AG PANEL(Performed 12/18/2024) Performed for Proteinuria, unspecified type, Metastatic renal cell carcinoma, unspecified laterality (HCC) * CBC W/O DIFFERENTIAL(Performed 12/18/2024) Performed for Proteinuria, unspecified type, Metastatic renal cell carcinoma, unspecified laterality (HCC) * RENAL FUNCTION PANEL(Performed 12/18/2024) Performed for Proteinuria, unspecified type, Metastatic renal cell carcinoma, unspecified laterality (HCC) * DNA ANTIBODY DOUBLE STRANDED(Performed 12/18/2024) Performed for Proteinuria, unspecified type, Metastatic renal cell carcinoma, unspecified laterality (HCC) * CT CHEST ABDOMEN PELVIS W CONT(Performed 12/18/2024) Performed for 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) * CREATININE - POCT INTERFACED(Performed 12/18/2024) * URINALYSIS REFLEX TO MICROSCOPIC NO CULTURE(Performed [...] 03/17/2021) Performed for Elevated liver enzymes * SHMGN-4-[id number] BLOOD PHENOTYPING PANEL(Performed 03/17/2021) Performed for Elevated liver enzymes * [id number] BLOOD(Performed 03/17/2021) Performed for Elevated liver enzymes [...] * TYPE + SCREEN PANEL(Performed 01/01/2020) * AK THORACOSCOPY W/LOBECTOMY(Performed 01/01/2020) Performed for Diagnosis unknown [...] 07/28/2013) * PTT [facility](Performed 07/28/2013) * PT-INR [facility](Performed 07/28/2013) * PATH CONSULT CLINICAL(Performed 07/07/2013) * LAB HISTORICAL RESULTS-ONBASE(Performed 07/04/2013) Results * US Retroperitoneal Complete (01/02/2025 1:56 PM EQUIPMENT SUPERINTENDENT) Anatomical Region Laterality Modality Abdomen Ultrasound 01/02/2025 3:48 PM EQUIPMENT SUPERINTENDENT Impressions 01/02/2025 4:32 PM EQUIPMENT SUPERINTENDENT IMPRESSION: Mild left calyectasis. Right kidney surgically absent. No renal calculus or solid renal mass in the left kidney > Dictated by Dimitris Sewell MD, (president). I, Devan Acevedo MD have personally reviewed and interpreted this examination/study. > Interpreting Provider: Devan Acevedo MD on 01/02/2025 4:32 PM Narrative 01/02/2025 4:32 PM EQUIPMENT SUPERINTENDENT PROCEDURE: US RETROPERITONEAL COMPLETE, DATE/TIME OF EXAM: 01/02/2025 1:56 PM, LOCATION [facility] INDICATION: R80.9: Proteinuria, unspecified type C64.9: Metastatic [...] COMPLETE, DATE/TIME OF EXAM: 51:56 PM, LOCATION [facility] INDICATION: R80.9: Proteinuria, unspecified type C64.9: Metastatic [...] kidney > Dictated by Dimitris Sewell MD, (president). I, Devan Acevedo MD have personally reviewed and interpreted this examination/study. > Interpreting Provider: Devan Acevedo MD on 01/02/2025 4:32 PM Tito Schwartz MD US ORDERABLES * (ABNORMAL) URINALYSIS NO MICROSCOPIC NO CULTURE (12/22/2024 1:06 PM EQUIPMENT SUPERINTENDENT) Only the most recent of53 resultswithin the time period is included. Color UA Straw Straw, Yellow 12/22/2024 1:54 PM EQUIPMENT SUPERINTENDENT [facility] Clarity UA Clear Clear 12/22/2024 1:54 PM EQUIPMENT SUPERINTENDENT [facility] Specific Peterson UA 1.002(L) 1.005 - 1.030 12/22/2024 1:54 PM EQUIPMENT SUPERINTENDENT [facility] pH UA 6.0 5.0 - 8.0 pH 12/22/2024 1:54 PM EQUIPMENT SUPERINTENDENT [facility] Protein UA 2+(A) Negative 12/22/2024 1:54 PM EQUIPMENT SUPERINTENDENT [facility] Glucose UA 3+(A) Negative 12/22/2024 1:54 PM [facility] Ketone UA Negative Negative 12/22/2024 1:54 PM [facility] Bilirubin UA Negative Negative 12/22/2024 1:54 PM [facility] Blood UA Negative Negative 12/22/2024 1:54 PM [facility] Nitrite UA Negative Negative 12/22/2024 1:54 PM [facility] Leukocyte Esterase Negative Negative 12/22/2024 1:54 PM [facility] Urobilinogen UA Negative Negative mg/dL 12/22/2024 1:54 PM [facility] Urine URINE SPECIMEN OBTAINED BY CLEAN CATCH PROCEDURE / Unknown Collection / Unknown 12/22/2024 1:06 PM EQUIPMENT SUPERINTENDENT 12/22/2024 1:39 PM EQUIPMENT SUPERINTENDENT [facility] - 12/22/2024 1:54 PM EQUIPMENT SUPERINTENDENT Wai Tse MD LAB - URINALYSIS ORD ERABLES [facility] [address] [place] [address], [facility] [phone] * (ABNORMAL) CBC W AUTO DIFFERENTIAL (12/22/2024 1:06 PM EQUIPMENT SUPERINTENDENT) Only the most recent of187 resultswithin the time period is included. WBC 6.5 4.0 - 10.7 x10E9/L 12/22/2024 2:15 PM [facility] RBC Count 4.80 3.90 - 5.20 x10E12/L 12/22/2024 2:15 PM [facility] Hemoglobin 15.9(H) 11.9 - 15.8 g/dL 12/22/2024 2:15 PM [facility] Hematocrit 45.6 34.8 - 46.1 % 12/22/2024 2:15 PM [facility] MCV 95.0 80.0 - 98.0 fL 12/22/2024 2:15 PM [facility] MCH 33.1 26.7 - 33.6 pg 12/22/2024 2:15 PM [facility] MCHC 34.9 31.7 - 36.3 g/dL 12/22/2024 2:15 PM [facility] RDW-CV 13.3 11.3 - 14.8 % 12/22/2024 2:15 PM [facility] Platelet Count 274 150 - 420 x10E9/L 12/22/2024 2:15 PM [facility] MPV 10.2 7.8 - 11.4 fL 12/22/2024 2:15 PM [facility] Preliminary Absolute Neutrophil 4.40 1.60 - 7.50 x10E9/L 12/22/2024 2:15 PM [facility] Neutrophil % 68.0 41.0 - 74.0 % 12/22/2024 2:15 PM [facility] Lymphocyte % 21.0 17.0 - 47.0 % 12/22/2024 2:15 PM [facility] Monocyte % 7.4 3.0 - 11.0 % 12/22/2024 2:15 PM [facility] Eosinophil % 2.8 0.0 - 7.0 % 12/22/2024 2:15 PM [facility] Basophil % 0.5 0.0 - 1.6 % 12/22/2024 2:15 PM [facility] Immature Granulocytes % 0.3 0.0 - 1.0 % 12/22/2024 2:15 PM [facility] Neutrophil Absolute 4.40 1.60 - 7.50 x10E9/L 12/22/2024 2:15 PM [facility] Lymphocyte Absolute 1.36 1.00 - 4.40 x10E9/L 12/22/2024 2:15 PM [facility] Monocyte Absolute 0.48 0.15 - 1.00 x10E9/L 12/22/2024 2:15 PM [facility] Eosinophil Absolute 0.18 0.00 - 0.60 x10E9/L 12/22/2024 2:15 PM [facility] Basophil Absolute 0.03 0.00 - 0.13 x10E9/L 12/22/2024 2:15 PM [facility] Blood BLOOD SPECIMEN / Unknown Venipuncture / Unknown 12/22/2024 1:06 PM EQUIPMENT SUPERINTENDENT 12/22/2024 2:09 PM EQUIPMENT SUPERINTENDENT Wai Tse MD LAB - HEMATOLOGY ORD ERABLES [address] [address], [facility] [phone] * (ABNORMAL) URINALYSIS REFLEX TO MICROSCOPIC NO CULTURE (12/18/2024 9:52 AM EQUIPMENT SUPERINTENDENT) Only the most recent of7 resultswithin the time period is included. Color UA Yellow Straw, Yellow 12/18/2024 10:37 AM [facility] Clarity UA Clear Clear 12/18/2024 10:37 AM [facility] Specific Peterson UA 1.003(L) 1.005 - 1.030 12/18/2024 10:37 AM [facility] pH UA 6.0 5.0 - 8.0 pH 12/18/2024 10:37 AM [facility] Protein UA 2+(A) Negative 12/18/2024 10:37 AM [facility] Glucose UA 3+(A) Negative 12/18/2024 10:37 AM [facility] Ketone UA Negative Negative 12/18/2024 10:37 AM [facility] Bilirubin UA Negative Negative 12/18/2024 10:37 AM [facility] Blood UA Negative Negative 12/18/2024 10:37 AM [facility] Nitrite UA Negative Negative 12/18/2024 10:37 AM [facility] Leukocyte Esterase Negative Negative 12/18/2024 10:37 AM [facility] Urobilinogen UA Negative Negative mg/dL 12/18/2024 10:37 AM [facility] RBC UA 3-5 None Seen, 0-2, 3-5 /HPF 12/18/2024 10:37 AM [facility] WBC UA 0-5 None Seen, 0-5 /HPF 12/18/2024 10:37 AM [facility] Bacteria UA Trace(A) None /HPF 12/18/2024 10:37 AM [facility] Squamous Epithelial Cells UA 0-2 None Seen, 0-2, 3-5 /HPF 12/18/2024 10:37 AM [facility] Mucus UA 1+ /LPF 12/18/2024 10:37 AM [facility] Urine URINE SPECIMEN OBTAINED BY CLEAN CATCH PROCEDURE / Unknown Collection / Unknown 12/18/2024 9:52 AM EQUIPMENT SUPERINTENDENT 12/18/2024 10:15 AM EQUIPMENT SUPERINTENDENT Narrative [facility] - 12/18/2024 10:37 AM EQUIPMENT SUPERINTENDENT Tito Schwartz MD LAB - URINALYSIS ORD ERABLES [facility] [address] [place] [address], [facility] [phone] * (ABNORMAL) PROTEIN CREATININE RATIO URINE RANDOM PNL (12/18/2024 9:52 AM EQUIPMENT SUPERINTENDENT) Protein Urine 102 Not Established mg/dL 12/18/2024 11:08 AM [facility] Creatinine Urine 33.98 Not Established mg/dL 12/18/2024 11:08 AM [facility] Protein/Creati nine Ratio Urine 3.00(H) <0.10 12/18/2024 11:08 AM [facility] Urine URINE SPECIMEN OBTAINED BY CLEAN CATCH PROCEDURE / Unknown Collection / Unknown 12/18/2024 9:52 AM EQUIPMENT SUPERINTENDENT 12/18/2024 10:15 AM EQUIPMENT SUPERINTENDENT Tito Schwartz MD LAB - URINE CHEMISTR Y ORDERABLES [facility] [address] [place] [address], [facility] [phone] * SYPHILIS (T PALLIDUM) DONOR (12/18/2024 9:51 AM EQUIPMENT SUPERINTENDENT) Donor Syphilis (T pallidum) Non Reactive Non Reactive 12/27/2024 7:08 PM EQUIPMENT SUPERINTENDENT [facility] ([facility]) Comment: Test performed with [employer] CAPTIA Syphilis (T pallidum)-G kit. Blood BLOOD SPECIMEN / Unknown Lab Venipuncture / Unknown 12/18/2024 9:51 AM EQUIPMENT SUPERINTENDENT 12/18/2024 10:16 AM EQUIPMENT SUPERINTENDENT Narrative [facility] ([facility]) - 12/27/2024 7:08 PM EQUIPMENT SUPERINTENDENT Performed at: - [employer] [address] [place] [address] [id number] Window Cutter: Jon Pinedo [facility], Phone: [phone] Tito Schwartz MD LAB - CHEMISTRY HELENA LANDA Performing Organization Address City/[facility] Co de Phone Number [facility] ([facility]) [address] [place] [address] * PHOSPHOLIPASE A2 RECEPTOR AB IGG RFLX TITER (12/18/2024 9:51 AM EQUIPMENT SUPERINTENDENT) [facility] Phospholipase A2 Receptor IgG <1:10 <1:10 12/20/2024 4:22 PM EQUIPMENT SUPERINTENDENT [facility] ([facility]) Comment: Phospholipase A2 Receptor Antibody, IgG is not detected. No further testing will be performed. Performed By: [employer] [address] [place] [address] [employer]umber Chain Offbearer: Tucker Hernandez MD, PhD CLIA Number: [id number] Blood BLOOD SPECIMEN / Unknown Lab Venipuncture / Unknown 12/18/2024 9:51 AM EQUIPMENT SUPERINTENDENT 12/18/2024 10:16 AM EQUIPMENT SUPERINTENDENT Tito Schwartz MD LAB - CHEMISTRY HELENA LANDA Performing Organization Address [facility] de Phone Number [facility] ([facility]) [address] [place] [address] * HIV-1 HIV-2 ANTIBODY + HIV P24 AG PANEL (12/18/2024 9:51 AM EQUIPMENT SUPERINTENDENT) Pathologist [facility] HIV Antigen/Antibod y 1 & 2 Non-reacti ve Non-react nafisa 12/18/2024 11:31 AM EQUIPMENT SUPERINTENDENT [facility] Comment:No Laboratory eviden ce of HIV infection. Blood BLOOD SPECIMEN / Unknown Lab Venipuncture / Unknown 12/18/2024 9:51 AM EQUIPMENT SUPERINTENDENT 12/18/2024 10:16 AM EQUIPMENT SUPERINTENDENT Tito Schwartz MD LAB - CHEMISTRY HELENA LANDA [facility] [address] [place] [address], [facility] [phone] * REF LAB-SPECIMEN STATUS REPORT (12/18/2024 9:51 AM EQUIPMENT SUPERINTENDENT) Specimen Status Report Comment 12/22/2024 5:07 PM EQUIPMENT SUPERINTENDENT [facility] ([facility]) Comment: Written Authorization Written Authorization Written Authorization Received. Authorization received from [employer] 12-22-2024 Logged by Faye Villafana Blood BLOOD SPECIMEN / Unknown Lab Venipuncture / Unknown 12/18/2024 9:51 AM EQUIPMENT SUPERINTENDENT 12/18/2024 10:16 AM EQUIPMENT SUPERINTENDENT Narrative [facility] ([facility]) - 12/22/2024 5:07 PM EQUIPMENT SUPERINTENDENT Performed at: [facility] [id number] Window Cutter: Alejandro Doshi PhD, Phone: [phone] Tito Schwartz MD LAB - CHEMISTRY HELENA LANDA Performing Organization Address [facility]/ZIP Co de Phone Number [facility] ([facility]) [address] [place] [address], [facility] * IMMUNOFIXATION BLOOD (12/18/2024 9:51 AM EQUIPMENT SUPERINTENDENT) [facility] Immunofixation Serum Normal Pattern Normal Pattern 12/19/2024 3:30 PM EQUIPMENT SUPERINTENDENT [facility] Comment: No monoclonal immunoglobulin detected by serum immunosubtraction. Margie Rinaldi PhD, [facility] Clinical Garbage Person cmm inspector *The electrophoresis pattern and the interpretation have been reviewed and verified by the teaching physician. Blood BLOOD SPECIMEN / Unknown Lab Venipuncture / Unknown 12/18/2024 9:51 AM EQUIPMENT SUPERINTENDENT 12/18/2024 10:16 AM EQUIPMENT SUPERINTENDENT Tito Schwartz MD LAB - CHEMISTRY HELENA LANDA Performing Organization Address City/[facility]/ZIP Co de Phone Number [facility] [address] [place] [address], [facility] [phone] * ANCA VASCULITIS PANEL (12/18/2024 9:51 AM EQUIPMENT SUPERINTENDENT) Myeloperoxidase Antibody 0 0 - 19 AU/mL 12/21/2024 12:18 PM EQUIPMENT SUPERINTENDENT [facility] ([facility]) Comment: INTERPRETIVE INFORMATION: Myeloperoxidase Abs, IgG 19 AU/mL or Less ......... Negative 20-25 AU/mL .............. Equivocal 26 AU/mL or Greater ...... Positive Approximately 90% of patients with a P-ANCA pattern by IFA have antibodies specific for MPO. Serine Proteinase 3 IgG 3 0 - 19 AU/mL 12/21/2024 12:18 PM EQUIPMENT SUPERINTENDENT [facility] ([facility]) Comment: INTERPRETIVE INFORMATION: Serine Proteinase 3, IgG 19 AU/mL or Less ........ Negative 20-25 AU/mL ............. Equivocal 26 AU/mL or Greater ..... Positive Approximately 85% of patients with a C-ANCA pattern by IFA have antibodies specific for PR3. ANCA Titer IFA <1:20 <1:20 12/21/2024 12:18 PM EQUIPMENT SUPERINTENDENT [facility] ([facility]) ANCA Pattern IFA None Detected None Detected 12/21/2024 12:18 PM EQUIPMENT SUPERINTENDENT [facility] ([facility]) Comment: INTERPRETIVE INFORMATION: ANCA IFA Pattern Neutrophil Cytoplasmic Antibodies (C-ANCA = granular cytoplasmic staining, P-ANCA = perinuclear staining) are found in the serum of over 90 percent of patients with certain necrotizing systemic vasculitides, and usually in less than 5 percent of patients with collagen vascular disease or arthritis. Performed By: [facility] [address] [place] [address] [employer]umber Chain Offbearer: Tucker Hernandez MD, PhD CLIA Number: [id number] Blood BLOOD SPECIMEN / Unknown Lab Venipuncture / Unknown 12/18/2024 9:51 AM EQUIPMENT SUPERINTENDENT 12/18/2024 10:55 AM EQUIPMENT SUPERINTENDENT Tito Schwartz MD LAB - CHEMISTRY HELENA LANDA [employer] [facility]) [address] * CHERYL BLOOD SCREEN W/REFLEX TITER (12/18/2024 9:51 AM EQUIPMENT SUPERINTENDENT) Only the most recent of2 resultswithin the time period is included. [facility] CHERYL IgG None Detected None Detected 12/20/2024 5:47 AM EQUIPMENT SUPERINTENDENT [facility] ([facility]) Comment: If suspicion of connective tissue disease is strong and CHERYL EIA is negative, consider testing for CHERYL by IFA ([id number]). INTERPRETIVE INFORMATION: Anti-Nuclear Antibodies (CHERYL), IgG by ERNESTO Antinuclear Antibodies (CHERYL), IgG by ERNESTO: CHERYL specimens are screened using enzyme-linked immunosorbent assay (ERNESTO) methodology. All ERNESTO results reported as Detected are further tested by indirect fluorescent assay (IFA) using HEp-2 substrate with an IgG-specific conjugate. The CHERYL ERNESTO screen is designed to detect antibodies against dsDNA, histones, SS-A (Ro), SS-B (La), Richey, Richey/CLINICAL ASSISTANT, Scl-70, More-1, centromeric proteins, other antigens extracted from the HEp-2 cell nucleus. CHERYL ERNESTO assays have been reported to have lower sensitivities than CHERYL IFA for systemic autoimmune rheumatic diseases (SARD). Negative results do not necessarily rule out SARD. Performed By: [facility] [employer] [address] [place] [address] Lumber Chain Offbearer: Tucker Hernandez MD, PhD CLIA Number: [id number] Blood BLOOD SPECIMEN / Unknown Lab Venipuncture / Unknown 12/18/2024 9:51 AM EQUIPMENT SUPERINTENDENT 12/18/2024 10:16 AM EQUIPMENT SUPERINTENDENT Tito Schwartz MD LAB - CHEMISTRY HELENA LANDA [facility] [employer] [facility]) [address] [place] [address], [facility] * GLOMERULAR BASE MEMBRANE ANTIBODY IGG (12/18/2024 9:51 AM EQUIPMENT SUPERINTENDENT) [facility] GBM Antibody IgG (EU) 0 0 - 19 AU/mL 12/21/2024 12:22 PM EQUIPMENT SUPERINTENDENT [facility] [employer] ([facility]) Comment: INTERPRETIVE INFORMATION: GBM Ab, IgG [...] and assessment of renal prognosis. Performed By: [facility] [address] [place] [address] Lumber Chain Offbearer: Tucker Hernandez MD, PhD CLIA Number: [id number] Blood BLOOD SPECIMEN / Unknown Lab Venipuncture / Unknown 12/18/2024 9:51 AM EQUIPMENT SUPERINTENDENT 12/18/2024 10:16 AM EQUIPMENT SUPERINTENDENT Tito Schwartz MD LAB - CHEMISTRY HELENA LANDA [facility] Organization Address City/State/ZIP Co de Phone Number [employer] [facility]) [address] [place] [address], [facility] * DNA ANTIBODY DOUBLE STRANDED (12/18/2024 9:51 AM EQUIPMENT SUPERINTENDENT) dsDNA Antibody 10 0 - 24 IU 12/20/2024 12:22 AM EQUIPMENT SUPERINTENDENT [facility] ([facility]) Comment: INTERPRETIVE INFORMATION: Double-Stranded DNA (dsDNA) Ab IgG ERNESTO 24 IU or less........Negative 25-30 IU.............Borderline Positive 30-60 IU.............Low Positive 60-200 IU............Positive 201 IU or greater....Strong Positive Positivity for anti-double stranded DNA (anti-dsDNA) IgG antibody is a diagnostic criterion of systemic lupus erythematosus (SLE). Specimens are initially screened by enzyme-linked immunosorbent assay (ERNESTO). If ordered as reflex ([id number]), positive ERNESTO results (>24 IU) will be [...] recommendations for testing may be found at [email or web address] Performed by [employer], [address] [place] [address] [email or web address], Balaji Torres MD, Lab. Director CLIA Number: [id number] Blood BLOOD SPECIMEN / Unknown Lab Venipuncture / Unknown 12/18/2024 9:51 AM EQUIPMENT SUPERINTENDENT 12/18/2024 10:16 AM EQUIPMENT SUPERINTENDENT Tito Schwartz MD LAB - HEMATOLOGY ORD ERABLES [facility]) [address] [place] [address] * (ABNORMAL) KAPPA/LAMBDA LITE CHAIN FREE PANEL (12/18/2024 9:51 AM EQUIPMENT SUPERINTENDENT) [place] [employer] 20.59(H) 3.30 - 19.40 mg/L 12/20/2024 5:06 AM EQUIPMENT SUPERINTENDENT [facility] ([facility]) Comment: INTERPRETIVE INFORMATION: [place] Qnt Free Light Chains Undetected antigen excess is a rare event but cannot be excluded. Free light chain results should always be interpreted in conjunction with other clinical and laboratory findings. [place] Free Light Chain Quantitative 16.76 5.71 - 26.30 mg/L 12/20/2024 5:06 AM EQUIPMENT SUPERINTENDENT [employer] ([facility]) Comment: INTERPRETIVE INFORMATION: Lambda Qnt Free Light Chains Undetected antigen excess is a rare event but cannot be excluded. Free light chain results should always be interpreted in conjunction with other clinical and laboratory findings. [place]/Lambda [employer] ratio 1.23 0.26 - 1.65 12/20/2024 5:06 AM EQUIPMENT SUPERINTENDENT [employer] ([facility]) Comment: Performed By: [facility] [address] [place] [address] Lumber Chain Offbearer: Tucker Hernandez MD, PhD CLIA Number: [id number] Blood BLOOD SPECIMEN / Unknown Lab Venipuncture / Unknown 12/18/2024 9:51 AM EQUIPMENT SUPERINTENDENT 12/18/2024 10:16 AM EQUIPMENT SUPERINTENDENT Tito Schwartz MD LAB - CHEMISTRY HELENA LANDA [facility] Organization Address City/State/ZIP Co de Phone Number [facility]) [address] [place] [address] * CBC W/O DIFFERENTIAL (12/18/2024 9:51 AM EQUIPMENT SUPERINTENDENT) Only the most recent of2 resultswithin the time period is included. Pathologist [facility] WBC 4.8 4.0 - 10.7 x10E9/L 12/18/2024 10:45 AM [facility] RBC Count 4.80 3.90 - 5.20 x10E12/L 12/18/2024 10:45 AM [facility] Hemoglobin 15.6 11.9 - 15.8 g/dL 12/18/2024 10:45 AM [facility] Hematocrit 45.8 34.8 - 46.1 % 12/18/2024 10:45 AM [facility] MCV 95.4 80.0 - 98.0 fL 12/18/2024 10:45 AM [facility] MCH 32.5 26.7 - 33.6 pg 12/18/2024 10:45 AM [facility] MCHC 34.1 31.7 - 36.3 g/dL 12/18/2024 10:45 AM [facility] RDW-CV 13.4 11.3 - 14.8 % 12/18/2024 10:45 AM [facility] Platelet Count 225 150 - 420 x10E9/L 12/18/2024 10:45 AM [facility] MPV 9.9 7.8 - 11.4 fL 12/18/2024 10:45 AM [facility] Blood BLOOD SPECIMEN / Unknown Lab Venipuncture / Unknown 12/18/2024 9:51 AM EQUIPMENT SUPERINTENDENT 12/18/2024 10:35 AM EQUIPMENT SUPERINTENDENT Tito Schwartz MD LAB - HEMATOLOGY ORD ERABLES [facility] [address] [place] [address], [facility] [phone] * COMPLEMENT C4 (12/18/2024 9:51 AM EQUIPMENT SUPERINTENDENT) Pathologist [facility] Complement C4 43 15 - 57 mg/dL 12/18/2024 11:09 AM [facility] Blood BLOOD SPECIMEN / Unknown Lab Venipuncture / Unknown 12/18/2024 9:51 AM EQUIPMENT SUPERINTENDENT 12/18/2024 10:34 AM EQUIPMENT SUPERINTENDENT Tito Schwartz MD LAB - SEROLOGY ORDER HARJINDER Performing Organization Address City/[facility]/ZIP Co de Phone Number [address] [address], [facility] [phone] * (ABNORMAL) RENAL FUNCTION PANEL (12/18/2024 9:51 AM EQUIPMENT SUPERINTENDENT) Pathologist [facility] BUN 11 7 - 26 mg/dL 12/18/2024 11:09 AM [facility] Creatinine 0.93 0.56 - 0.96 mg/dL 12/18/2024 11:09 AM [facility] Sodium 138 136 - 145 mmol/L 12/18/2024 11:09 AM [facility] Potassium 3.6 3.5 - 4.5 mmol/L 12/18/2024 11:09 AM [facility] Chloride 103 98 - 107 mmol/L 12/18/2024 11:09 AM [facility] CO2 23 22 - 29 mmol/L 12/18/2024 11:09 AM [facility] Glucose 85 70 - 99 mg/dL 12/18/2024 11:09 AM [facility] Albumin 4.3 3.4 - 5.0 g/dL 12/18/2024 11:09 AM [facility] Calcium 10.4(H) 8.4 - 10.2 mg/dL 12/18/2024 11:09 AM [facility] Phosphorus 3.3 2.9 - 5.1 mg/dL 12/18/2024 11:09 AM [facility] Anion Gap 12 6 - 16 12/18/2024 11:09 AM [facility] BUN/Creatinine Ratio 12 7 - 23 12/18/2024 11:09 AM [facility] Osmolality Calculated 285 275 - 295 mOsm/kg 12/18/2024 11:09 AM [facility] eGFR by CKD-EPI 68(L) >=90 mL/min/1.7 3 m2 12/18/2024 11:09 AM [facility] Blood BLOOD SPECIMEN / Unknown Lab Venipuncture / Unknown 12/18/2024 9:51 AM EQUIPMENT SUPERINTENDENT 12/18/2024 10:34 AM EQUIPMENT SUPERINTENDENT Tito Schwartz MD LAB - CHEMISTRY HELENA LANDA [address] [address], [facility] [phone] * COMPLEMENT C3 (12/18/2024 9:51 AM EQUIPMENT SUPERINTENDENT) Complement C3 161 82 - 193 mg/dL 12/18/2024 11:09 AM [facility] Blood BLOOD SPECIMEN / Unknown Lab Venipuncture / Unknown 12/18/2024 9:51 AM EQUIPMENT SUPERINTENDENT 12/18/2024 10:34 AM EQUIPMENT SUPERINTENDENT Tito Schwartz MD LAB - CHEMISTRY HELENA LANDA [address] [address], [facility] [phone] * CT Chest Abdomen Pelvis W Cont (12/18/2024 9:15 AM EQUIPMENT SUPERINTENDENT) Only the most recent of14 resultswithin the time period is included. Anatomical Region Laterality Modality Chest, Abdomen, Pelvis Computed Tomography 12/18/2024 9:27 AM EQUIPMENT SUPERINTENDENT Impressions 12/18/2024 10:32 AM EQUIPMENT SUPERINTENDENT Impression: 1.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 2.No evidence of metastatic disease within the chest, abdomen, or pelvis. > Dictated by Florentino Duncan MD, (president). I, Maribel Reyes MD have personally reviewed and interpreted this examination/study. > Interpreting Provider: Maribel Reyes MD on 12/18/2024 10:32 AM Narrative 12/18/2024 10:32 AM EQUIPMENT SUPERINTENDENT PROCEDURE: CT CHEST ABDOMEN PELVIS W CONT, DATE/TIME OF EXAM: 12/18/2024 9:16 AM, LOCATION [facility] INDICATION: C78.02: Malignant neoplasm metastatic to left [...] DATE/TIME OF EXAM: 12/18/2024 9:16 AM, LOCATION [facility] INDICATION: C78.02: Malignant neoplasm metastatic to left [...] orpelvis. > Dictated by Florentino Duncan MD, (president). I, Maribel Reyes MD have personally reviewed and interpreted this examination/study. > Interpreting Provider: Maribel Reyes MD on 510:32 AM Ronnie Mcqueen MD CT ORDERABLES * (ABNORMAL) CREATININE - POCT INTERFACED (12/18/2024 9:02 AM EQUIPMENT SUPERINTENDENT) Only the most recent of3 resultswithin the time period is included. Creatinine POCT 0.75 0.30 - 1.30 mg/dL 12/18/2024 9:08 AM EQUIPMENT SUPERINTENDENT [facility] eGFR 88(L) >=90 mL/min/1.7 3 m2 12/18/2024 9:08 AM EQUIPMENT SUPERINTENDENT [facility] Blood BLOOD SPECIMEN / Unknown 12/18/2024 9:02 AM EQUIPMENT SUPERINTENDENT 12/18/2024 9:08 AM EQUIPMENT SUPERINTENDENT Ronnie Mcqueen MD LAB - POINT OF CARE ORDERABLES [address] [address], [facility] [phone] * LAB RESULTS ORDER (11/06/2024) Only the most recent of33 resultswithin the time period is included. 11/06/2024 Narrative 11/06/2024 Ordered by an unspecified provider. Scanned Document LAB - THERAPEUTIC DR BATRES MONITORING ORDERABLES * (ABNORMAL) URINALYSIS REFLEX MICROSCOPIC REFLEX CULTURE (09/24/2024 11:37 AM EQUIPMENT SUPERINTENDENT) Specific Peterson UA 1.009 1.005 - 1.030 [facility] INSURANCE [...] reflex to a Urine Culture. Performed at: [address] [id number] Window Cutter: Alejandro Doshi PhD, Phone: [phone] WBC UA None seen 0 - 5 [...] CATCH PROCEDURE / Unknown 09/24/2024 11:37 AM EQUIPMENT SUPERINTENDENT 09/24/2024 Narrative [facility] INSURANCE BILL - 09/25/2024 3:36 AM EQUIPMENT SUPERINTENDENT Performed at: [address] [id number] Window Cutter: Alejandro Doshi PhD, Phone: [phone] Kelly Coates SAMPLE COLLECTOR-CERTIFIED MASTER SAFE TECHNICIAN LAB - URINAL YSIS ORDERABLES [facility] INSURANCE BILL [address] [place] [address] * (ABNORMAL) PROTEIN URINE TIMED QUANTITATIVE (08/20/2024 11:45 AM CDT) Only the most recent of8 resultswithin the time period is included. Protein Urine 145.9 Not Estab. mg/dL [facility] INSURANCE BILL Protein 24 Hour Urine 4,523(H) 30 - 150 mg/24 hr [facility] INSURANCE BILL 08/20/2024 11:4 5 AM CDT 08/21/2024 Narrative [facility] INSURANCE BILL - 08/22/2024 8:38 AM CDT Performed at: - [facility] [address] [place], [place] [id number] Window Cutter: Alejandro Doshi PhD, Phone: [phone] Kelly Coates SAMPLE COLLECTOR-CERTIFIED MASTER SAFE TECHNICIAN LAB - URINE CHEMISTRY ORDERABLES [facility] [address] [place] [address] * (ABNORMAL) COMPREHENSIVE METABOLIC PANEL (08/20/2024 9:52 AM CDT) Only the most recent of131 resultswithin the time period is included. [facility] BUN 8 7 - 26 mg/dL 08/20/2024 10:33 AM [facility] Creatinine 0.90 0.56 - 0.96 mg/dL 08/20/2024 10:33 AM [facility] Sodium 139 136 - 145 mmol/L 08/20/2024 10:33 AM [facility] Potassium 4.7(H) 3.5 - 4.5 mmol/L 08/20/2024 10:33 AM [facility] Chloride 106 98 - 107 mmol/L 08/20/2024 10:33 AM [facility] CO2 24 22 - 29 mmol/L 08/20/2024 10:33 AM [facility] Glucose 93 70 - 115 mg/dL 08/20/2024 10:33 AM [facility] Calcium 10.5(H) 8.4 - 10.2 mg/dL 08/20/2024 10:33 AM [facility] Protein Total 7.4 6.0 - 8.3 g/dL 08/20/2024 10:33 AM [facility] Albumin 3.9 3.4 - 5.0 g/dL 08/20/2024 10:33 AM [facility] Bilirubin Total 2.3(H) 0.2 - 1.2 mg/dL 08/20/2024 10:33 AM [facility] Alkaline Phosphatase 63 40 - 150 U/L 08/20/2024 10:33 AM [facility] ALT 34 5 - 55 U/L 08/20/2024 10:33 AM [facility] AST 37(H) 5 - 34 U/L 08/20/2024 10:33 AM [facility] Anion Gap 9 6 - 16 08/20/2024 10:33 AM [facility] BUN/Creatinine Ratio 9 7 - 23 08/20/2024 10:33 AM [facility] Osmolality Calculated 286 275 - 295 mOsm/kg 08/20/2024 10:33 AM [facility] Albumin/Globulin Ratio 1.1 1.1 - 2.3 08/20/2024 10:33 AM [facility] eGFR by CKD-EPI 71(L) >=90 mL/min/1.7 3 m2 08/20/2024 10:33 AM [facility] Blood BLOOD SPECIMEN / Unknown Venipuncture / Unknown 08/20/2024 9:52 AM CDT 08/20/2024 10:20 AM CDT Wai Tse MD LAB - CHEMISTRY [facility] Organization Address City/State/ZIP Co de Phone Number [facility] [address] [place] [phone], [facility] [phone] * MAGNESIUM BLOOD (08/20/2024 9:52 AM CDT) Only the most recent of105 resultswithin the time period is included. Magnesium 2.0 1.6 - 2.6 mg/dL 08/20/2024 10:33 AM [facility] Blood BLOOD SPECIMEN / Unknown Venipuncture / Unknown 08/20/2024 9:52 AM CDT 08/20/2024 10:20 AM CDT Wai Tse MD LAB - CHEMISTRY HELENA LANDA [address] [address], [facility] [phone] * Rad Onc Aria Session Summary (02/22/2023 [...] RADIATION ONCOLOGY O RDERABLES Performing Organization Address [facility] Co de Phone Number RAD ONC [...] RADIATION ONCOLOGY O RDERABLES Performing Organization Address [facility] Co de Phone Number RAD ONC [...] RADIATION ONCOLOGY O RDERABLES Performing Organization Address [facility] de Phone Number RAD ONC TREATMENT * [...] PM CDT Provider Unknown RADIATION ONCOLOGY O RASHMI Performing Organization Address [facility] de Phone Number RAD ONC TREATMENT * [...] lymphadenopathy. Report dictated by Jaswinder Benitez DO (president). > Dictated by Jaswinder Benitez DO (Director Funds Development) 02/02/2023 3:35 PM I, Becky Cesar MD have personally reviewed and interpreted this examination/study. > Interpreting Provider: Becky Cesar MD on 02/02/2023 5:18 PM Narrative 02/02/2023 5:18 PM CDT PROCEDURE: PET CT SKULL TO MID THIGH, DATE/TIME OF EXAM: 02/02/2023 10:57 AM, LOCATION [facility] INDICATION: C78.02: Malignant neoplasm metastatic to left [...] THIGH, DATE/TIME OF EXAM: 0:57 AM, LOCATION [facility] INDICATION: C78.02: Malignant neoplasm metastatic to left [...] lymphadenopathy. Report dictated by Jaswinder Benitez DO (president). > Dictated by Jaswinder Benitez DO (Director Funds Development) 02/02/2023 3:35 PM I, Becky Cesar MD have personally reviewed and interpreted this examination/study. > Interpreting Provider: Becky Cesar MD on 02/02/2023 5:18 PM Ronnie Mcqueen MD NM ORDERABLES * GLUCOSE SCREEN - POCT (IP) [facility] (02/02/2023 9:38 AM CDT) Only the most recent of3 resultswithin the time period is included. Glucose WB/POC 97 70 - 115 mg/dL [facility] POCT TESTING Blood BLOOD SPECIMEN / Unknown 02/02/2023 9:38 AM CDT Ronnie Mcqueen MD LAB - POINT OF CARE ORDERABLES [facility] POCT TESTING [address] [place] [address], [facility] [phone] * (ABNORMAL) UDP GLUCURONOSYLTRANSFERASE 1A1 (06/27/2022 10:36 AM CDT) UGT1A1 Genotyping Allele 1 (TA)7 or *28(A) 07/04/2022 9:41 AM CDT [facility] ([facility]) UGT1A1 Genotyping Specimen Whole Blood 07/04/2022 9:41 AM CDT [facility] ([facility]) UGT1A1 Genotyping Allele 2 (TA)7 or *28(A) 07/04/2022 9:41 AM CDT [employer] [facility] [facility] ([facility]) Interpretation UGT1A1 Genotyping See Note 07/04/2022 9:41 AM CDT [facility] ([facility]) Comment: Indications for ordering: - Determine [...] number in the TATAAA element of the 5'[id number]-xvuwlxmh affects air force pilot efficiency. The common number of repeats is six [(TA)6, *1 allele], while seven repeats [(TA)7, *28 allele] is associated with reduced air force pilot activity. Homozygosity for the (TA)7 allele is [...] developed and its performance characteristics determined by [employer]. It has not been cleared or approved by the US Food and Drug Administration. This test was performed in a CLIA certified laboratory and is intended for clinical purposes. Counseling and informed consent are recommended for genetic testing. Consent forms are available online. Performed by [employer], [address] [place] [id number] [email or web address], Tucker Hernandez MD, PHD, Lab. Director Blood BLOOD SPECIMEN / Unknown Venipuncture / Unknown 06/27/2022 10:36 AM CDT 06/27/2022 10:36 AM CDT Arlin Milian SAMPLE COLLECTOR-NEEDLE VALVE OPERATOR LAB - CHEMIS TRY ORDERABLES [facility] [employer] ([facility]) [address] [place] [address], [facility] * (ABNORMAL) BASIC METABOLIC PANEL (CALCIUM TOTAL) [...] Resulting Agency Comment Lab Testing performed at: [facility] [address] [facility] [id number] Wai Tse MD LAB - CHEMISTRY HELENA LANDA [facility] INSURANCE BILL [address] [place] [address] * US ABDOMEN DOPPLER ONLY LTD (03/29/2022 10:46 AM CDT) Anatomical Region Laterality Modality Abdomen Ultrasound 03/29/2022 10:1 3 AM CDT Impressions 03/29/2022 11:22 AM CDT FINDINGS/IMPRESSION: There is no evidence of thrombus or filling defect within the inferior vena cava. The IVC is patent with adequate flow throughout its visualized course. Dictated by Paramjit Suarez MD (president). I, Dr. Fannie LEHMAN M.D. have personally reviewed and interpreted this [...] itsvisualized course. Dictated by Paramjit Suarez MD (president). Dr. Fannie Blackman M.D. have personally reviewed and interpretedthis examination/study. This report was electronically signed by Fannie LEHMAN M.D. on 03/29/2022 11:22 AM . Ronnie Mcqueen MD ORDERABLES * (ABNORMAL) PTH INTACT W/O CALCIUM (09/07/2021 10:24 AM CDT) Pathologist [facility] PTH Intact 101.5(H) 8.0 - 77.0 pg/mL 09/07/2021 11:21 AM CDT [facility] Blood BLOOD SPECIMEN / Unknown Venipuncture / Unknown 09/07/2021 10:24 AM CDT 09/07/2021 10:49 AM CDT Wai Tse MD LAB - CHEMISTRY HELENA LANDA [facility] Organization Address City/State/ZIP Co de Phone Number [address] [address], [facility] [phone] * SMOOTH MUSCLE ANTIBODY W REFLEX TITER (09/07/2021 10:24 AM CDT) Only the most recent of2 resultswithin the time period is included. F-Actin Antibody IgG 5 0 - 19 Units 09/09/2021 7:03 AM CDT [employer] ([facility]) Comment: If F-Actin (Smooth Muscle) Antibody, [...] suspicion for AIH is strong. Performed By: [facility] [address] [place] [address] Lumber Chain Offbearer: Vicky Kruger MD Blood BLOOD SPECIMEN / Unknown Venipuncture / Unknown 09/07/2021 10:24 AM CDT 09/07/2021 10:45 AM CDT Wai Tse MD LAB - SEROLOGY ORDER HARJINDER [facility] [employer] [facility]) [address] [place] [address] * PTH RELATED PEPTIDE (09/07/2021 10:24 AM CDT) PTH Related Peptide 2.4 0.0 - 3.4 pmol/L 09/16/2021 5:38 AM CDT [facility] [employer] ([facility]) Comment: INTERPRETIVE INFORMATION: Parathyroid Hormone-Related Peptide This test was developed and its performance characteristics determined by [employer]. It has not been cleared or approved by the US Food and Drug Administration. This test was performed in a CLIA certified laboratory and is intended for clinical purposes. Performed By: [facility] [address] [place] [address] Lumber Chain Offbearer: Vicky Kruger MD Blood BLOOD SPECIMEN / Unknown Venipuncture / Unknown 09/07/2021 10:24 AM CDT 09/07/2021 10:46 AM CDT Wai Tse MD LAB - CHEMISTRY HELENA LANDA [facility] ([facility]) [address] [place] [address], [facility] * HEMOGLOBIN A1C (09/07/2021 10:24 AM CDT) Pathologist [facility] Hemoglobin A1c 5.3 4.4 - 6.3 % 09/07/2021 3:52 PM CDT [facility] Estimated Average Glucose 105 mg/dL 09/07/2021 3:52 PM CDT [facility] Comment: HbA1c Interpretation: Treatment target values recommended by ADA and other clinical organizations should be used to evaluate metabolic control in patients. Treatment Target Values: Normal : < 5.7% Pre-diabetes: 5.7-6.4% Diabetes: Equal to or greater than 6.5% Reference: [place] Diabetes Association Standards of Care in Diabetes -2014 In patients 70 years and older consider HbA1c target range of 7.0-7.5% Reference: Diabetes Mellitus in Older People: Position Statement on behalf of the International Association of Gerontology and Geriatrics (IAGG), the Diabetes Working Republican for Older People (EDWPOP), and the International Task Force of Experts in Diabetes. Rogelio Santana, et al. J [place] [employer] Association. 2012 Test results diagnostic of diabetes should be repeated for confirmation. The Sebia Capillary 2 assay for the measurement of HbA1c is a National Glycohemoglobin Standardization Program (NGSP)certified method. Blood BLOOD SPECIMEN / Unknown Venipuncture / Unknown 09/07/2021 10:24 AM CDT 09/07/2021 10:49 AM CDT Wai Tse MD LAB - CHEMISTRY HELENA LANDA [facility] [address] [place] [address], [facility] [phone] * VITAMIN D 1,25 DIHYDROXY (09/07/2021 10:24 AM CDT) Pathologist [facility] Vitamin D, 1,25 Dihydroxy 44.1 19.9 - 79.3 pg/mL 09/09/2021 1:53 PM CDT [employer] ([facility]) Comment: INTERPRETIVE INFORMATION: Vitamin D, 1,25-Dihydroxy This test is primarily indicated during patient evaluation for hypercalcemia and renal failure. A normal result does not rule out Vitamin D deficiency. The recommended test for diagnosing Vitamin D deficiency is Vitamin D 25-hydroxy. Performed By: [facility] [address] [place] [address] Lumber Chain Offbearer: Vicky Kruger MD Blood BLOOD SPECIMEN / Unknown Venipuncture / Unknown 09/07/2021 10:24 AM CDT 09/07/2021 10:45 AM CDT Wai Tse MD LAB - CHEMISTRY HELENA LANDA Performing Organization Address [facility]/ZIP Co de Phone Number [employer] [facility]) [address] [place] [address], [facility] * Rad Onc Aria Session Summary (07/21/2021 [...] ONCOLOGY O RDERABLES RAD ONC TREATMENT * CT ABDOMEN MULTI [...] on 03/28/2021 11:34 AM . Jessica Padron SAMPLE COLLECTOR-CERTIFIED MASTER SAFE TECHNICIAN CT ORDERABLE S * PT-INR [facility] (03/17/2021 10:19 AM CDT) Only the most recent of44 resultswithin the time period is included. PT 12.3 12.1 - 14.8 Seconds 03/17/2021 10:40 AM CDT [facility] INR 0.9 See Comment 03/17/2021 10:40 AM CDT [facility] Comment:The suggested therap eutic range for standard coumadin (warfarin) therapy is an INR of 2.0-3.0. For high-risk patients (Mechanical Mitral Valve Prosthesis, etc.), the suggested prophylactic therapeutic range is an INR of 2.5-3.5. Blood BLOOD SPECIMEN / Unknown Lab Venipuncture / Unknown 03/17/2021 10:19 AM CDT 03/17/2021 10:31 AM CDT Jessica Padron SAMPLE COLLECTOR-CERTIFIED MASTER SAFE TECHNICIAN LAB - COAGUL ATION ORDERABLES [facility] [address] [place] [address], [facility] [phone] * MITOCHONDRIAL ANTIBODY SCREEN (03/17/2021 10:19 AM CDT) Mitochondrial M2 Antibody 5.5 0.0 - 24.9 Units 03/19/2021 4:49 PM CDT [facility] [employer] ([facility]) Comment: REFERENCE INTERVAL: Mitochondrial (M2) Antibody, [...] does not rule out PBC. Performed By: [facility] [address] [place] [address] Lumber Chain Offbearer: Vicky Kruger MD Blood BLOOD SPECIMEN / Unknown Lab Venipuncture / Unknown 03/17/2021 10:19 AM CDT 03/17/2021 10:35 AM CDT Jessica Padron SAMPLE COLLECTOR-CERTIFIED MASTER SAFE TECHNICIAN LAB - CHEMIS TRY ORDERABLES [employer] ([facility]) [address] [place] [address] * [id number]-0-MPQCITGEEBQ BLOOD PHENOTYPING PANEL (03/17/2021 10:19 AM CDT) Toaxc-9-Jfdftjtugd n Phenotype M1M1 03/21/2021 8:58 AM CDT [employer] ([facility]) Comment: The patient appears to have a normal phenotype. All M alleles (including subtypes M1, M2, and M3) produce normal serum concentrations of boqay-7-nyxkbbrh inhibitor and are not associated with clinical disease. Caution in interpretation is advised if the patient has been transfused within the previous 21 days. Performed By: [facility] [address] [place] [address] Lumber Chain Offbearer: Vicky Kruger MD Bsbul-3-Abjbdcuwvg n 136 90 - 200 mg/dL 03/21/2021 8:58 AM CDT [employer] ([facility]) Comment:To convert to umol/L , multiply mg/dL by 0.185 Blood BLOOD SPECIMEN / Unknown Lab Venipuncture / Unknown 03/17/2021 10:19 AM CDT 03/17/2021 10:35 AM CDT Jessica Padron APRN-CERTIFIED MASTER SAFE TECHNICIAN LAB - CHEMIS TRY ORDERABLES [facility] ([facility]) [address] * HEPATITIS C RNA QUANTITATIVE (03/17/2021 10:19 AM CDT) Pathologist [facility] Hepatitis C RNA PCR, Interp Not detected Not detected 03/21/2021 3:48 PM CDT [facility] Blood BLOOD SPECIMEN / Unknown Lab Venipuncture / Unknown 03/17/2021 10:19 AM CDT 03/17/2021 10:35 AM CDT Narrative [facility] - 03/21/2021 3:48 PM CDT The Hepatitis C viral (HCV) RNA analysis utilized a serum sample, real-time reverse air force pilot PCR, and is reported as Not Detected, [...] the isolation of HCV RNA with reverse air force pilot of genomic HCV RNA followed by real-time PCR in the presence of an unrelated RNA internal control. The internal control ensures that RNA is isolated, and that no general significant inhibitors of the RT-PCR process are present. The analysis was performed using a U.S. FDA approved test methodology (Graceful Tables Real Time HCV). Jessica Padron APRN-CERTIFIED MASTER SAFE TECHNICIAN LAB - CHEMIS TRY ORDERABLES [facility] [address] [place], [address] [phone] * CERULOPLASMIN (03/17/2021 10:19 AM CDT) Ceruloplasmin 32 20 - 60 mg/dL 03/17/2021 11:06 AM CDT [facility] Blood BLOOD SPECIMEN / Unknown Lab Venipuncture / Unknown 03/17/2021 10:19 AM CDT 03/17/2021 10:35 AM CDT Jessica Padron APRN-CERTIFIED MASTER SAFE TECHNICIAN LAB - CHEMIS TRY ORDERABLES [address] [address], [place] [phone] * IKOLW-9-NELCVOATNNG BLOOD (03/17/2021 10:19 AM CDT) Iitjz-1-Srfkjq ypsin 148 90 - 200 mg/dL 03/17/2021 11:06 AM CDT [facility] Blood BLOOD SPECIMEN / Unknown Lab Venipuncture / Unknown 03/17/2021 10:19 AM CDT 03/17/2021 10:35 AM CDT Jessica Padron APRN-CERTIFIED MASTER SAFE TECHNICIAN LAB - CHEMIS TRY ORDERABLES Performing Organization Address City/[facility]/ZIP Co de Phone Number [address] [address], [place] [phone] * HEPATITIS B SURFACE ANTIGEN W RFLX CONFIRMATION (03/17/2021 10:19 AM CDT) Hepatitis B Virus Surface Antigen Non-reacti ve Non-reacti ve 03/17/2021 11:22 AM CDT [facility] Blood BLOOD SPECIMEN / Unknown Lab Venipuncture / Unknown 03/17/2021 10:19 AM CDT 03/17/2021 10:35 AM CDT Jessica Padron APRN-CERTIFIED MASTER SAFE TECHNICIAN LAB - CHEMIS TRY ORDERABLES [address] [address], [place] [phone] * (ABNORMAL) HEPATIC FUNCTION PANEL (03/02/2021 9:16 AM CDT) Only the most recent of41 resultswithin the time period is included. [facility] Protein Total 6.9 6.0 - 8.3 g/dL 021 9:51 AM [facility] Albumin 4.1 3.4 - 5.0 g/dL 03/02/2021 9:51 AM [facility] Bilirubin Total 2.2(H) 0.2 - 1.2 mg/dL 02/11 9:51 AM [facility] Bilirubin Conjugated 0.7(H) 0.1 - 0.5 mg/dL 03/02/2021 9:51 AM [facility] Bilirubin Unconjugated 1.5 Unconjugated Bilirubin is a calculated value: Reference ranges have not been established. mg/dL 03/02/2021 9:51 AM [facility] Alkaline Phosphatase 61 40 - 150 Units/L 03/02/2021 9:51 AM [facility] ALT 101(H) 0 - 55 Units/L 03/02/2021 9:51 AM [facility] AST 75(H) 5 - 34 Units/L 03/02/2021 9:51 AM [facility] Albumin/Globulin Ratio 1.5 1.1 - 2.3 03/02/2021 9:51 AM [facility] Blood BLOOD SPECIMEN / Unknown Lab Venipuncture / Unknown 03/02/2021 9:16 AM CDT 03/02/2021 9:22 AM CDT Wai Tse MD LAB - CHEMISTRY HELENA LANDA [facility] Organization Address City/State/ZIP Co de Phone Number [facility] [address] [place] [address], [facility] [phone] * (ABNORMAL) TSH (03/02/2021 9:16 AM CDT) Only the most recent of20 resultswithin the time period is included. [facility] TSH 4.990(H) 0.350 - 4.940 uIU/mL 03/02/2021 10:05 AM CDT [facility] Blood BLOOD SPECIMEN / Unknown Lab Venipuncture / Unknown 03/02/2021 9:16 AM CDT 03/02/2021 9:22 AM CDT Wai Tse MD LAB - CHEMISTRY HELENA LANDA Performing Organization Address City/[facility]/ZIP Co de Phone Number [address] [address], [facility] [phone] * T4 FREE (03/02/2021 9:16 AM CDT) Only the most recent of13 resultswithin the time period is included. T4 Free 1.1 0.7 - 1.5 ng/dL 03/02/2021 10:37 AM CDT [facility] Blood BLOOD SPECIMEN / Unknown Lab Venipuncture / Unknown 03/02/2021 9:16 AM CDT 03/02/2021 9:22 AM CDT Wai Tse MD LAB - CHEMISTRY HELENA LANDA Performing Organization Address [facility] Co de Phone Number [address] [address], [place] [phone] * (ABNORMAL) BILIRUBIN TOTAL BLOOD (11/10/2020 1:17 PM EQUIPMENT SUPERINTENDENT) Only the most recent of2 resultswithin the time period is included. Bilirubin Total 1.6(H) 0.2 - 1.2 mg/dL 11/10/2020 2:20 PM EQUIPMENT SUPERINTENDENT [facility] Blood BLOOD SPECIMEN / Unknown Venipuncture / Unknown 11/10/2020 1:17 PM EQUIPMENT SUPERINTENDENT 11/10/2020 1:54 PM EQUIPMENT SUPERINTENDENT Wai Tse MD LAB - CHEMISTRY HELENA LANDA Performing Organization Address City/[facility]/ZIP Co de Phone Number [address] [address], [place] [phone] * CORTISOL BLOOD AM (10/21/2020 8:01 AM EQUIPMENT SUPERINTENDENT) Cortisol AM 16.8 6.2 - 19.4 ug/dL [facility] INSURANCE BILL Comment:FASTING Blood BLOOD SPECIMEN / Unknown 10/21/2020 8:01 AM EQUIPMENT SUPERINTENDENT 10/21/2020 Narrative Resulting Agency Comment Lab Testing performed at: [facility] [address] [facility] [phone] Wai Tse MD LAB - CHEMISTRY HELENA LANDA Performing Organization Address [facility] Co de Phone Number [facility] INSURANCE BILL [address] [place] [phone] * (ABNORMAL) T4+TSH REFLEX T3 (10/18/2020 8:55 AM EQUIPMENT SUPERINTENDENT) TSH 4.730(H) 0.450 - 4.500 uIU/mL [facility] INSURANCE BILL T4 Total 7.2 4.5 - 12.0 ug/dL [facility] INSURANCE BILL Comment:FASTING Blood BLOOD SPECIMEN / Unknown 10/18/2020 8:55 AM EQUIPMENT SUPERINTENDENT 10/18/2020 Narrative Resulting Agency Comment Lab Testing performed at: [place] [id number] [facility] [phone] Wia Tse MD LAB - CHEMISTRY HELENA LANDA Performing Organization Address [facility] Co de Phone Number [facility] INSURANCE BILL [address] [place] [address] * CT GUIDED NEEDLE BIOPSY MUSCLE OR [...] radiology suite and placed on table supine. [place] thymol protocol performed. Real-time grayscale and color [...] and sent to pathology for further analysis. [place] were removed. Procedure was ended. Patient tolerated [...] radiology suite and placed on table supine. [place] thymol protocol performed.Real-time grayscale and color Doppler [...] and sent to pathology for further analysis. [place] were removed. Procedure was ended. Patient toleratedthe [...] CDT) Case Report Surgical Pathology Report Case: [id number] Authorizing Provider: Wai Tse MD Collected: 05/27/2020 11:57 AM Ordering Location: [facility] IVR Received: 05/27/2020 12:16 PM Pathologist: Lianne Pina Mai, DO Specimen: Soft Tissue Mass 05/29/2020 10:25 AM CDT [facility] PATHOLOGY LAB Final Diagnosis Left supraclavicular mass, biopsy: - Consistent with metastatic renal cell carcinoma. 05/29/2020 10:25 AM CDT [facility] PATHOLOGY LAB Microscopic Description and Comment [...] renal cell carcinoma. 05/29/2020 10:25 AM CDT [facility] PATHOLOGY LAB Clinical History 60 year old female with a history of metastatic renal cell carcinoma and ductal carcinoma in situ of the breast. CT chest showing enlarging left upper lobe nodules, 1.3 cm largest diameter. PET + neck/mediastinum lymphadenopath. 05/29/2020 10:25 AM CDT [facility] PATH[facility] Gross Description The requisition and specimen(s) are labeled with the patient's name, Suzette Shoemaker. Received in formalin, specimen A , are multiple white valdovinos tissue cores with focal area of hemorrhage measuring 0.1-1.4 cm in length with a diameter of 0.1 cm. The specimen is submitted in toto in cassette A1. KK 05/29/2020 10:25 AM T [facility] PATH[facility] LAB Disclaimer The performance characteristics of all immunohistochemical and indirect immunofluorescence stains (if any) cited in this report were determined by the Histopathology Laboratory of [facility]. Some of these tests were developed by [...] the attending (teaching) pathologist. 05/29/2020 10:25 AM CDT [facility] Embedded Images 05/29/2020 10:25 AM CDT [facility] LAB Pathology/Cytology SOFT TISSUE MASS / Unknown Collection / Unknown 05/27/2020 11:57 AM CDT 05/27/2020 12:16 PM CDT Comment:L supraclavicular vanita ss Wai Tse MD LAB - PATHOLOGY/CYTO LOGY ORDERABLES [facility] LAB [address] [facility] [place] [address], [facility] [phone] * MRI BRAIN WWO CONTRAST (05/22/2020 12:16 PM CDT) Anatomical Region Laterality Modality Head Magnetic Resonan ce 05/22/2020 6:56 PM CDT Impressions 05/23/2020 10:12 PM CDT IMPRESSION: 1. No enhancing lesions to suggest intracranial metastasis. This report was electronically signed by JAQUELIN CATALAN on 05/23/2020 10:12 PM . Narrative 05/23/2020 [...] cervical spine appear normal. Procedure Note Jaquelin Catalan MD - 05/23/2020 MRI BRAIN WWO CONTRAST [...] metastasis. This report was electronically signed by EDVINREJI ALAYNA on05/23/2020 10:12 PM . Eder Dumont MD [...] is normal. Dictated by Pan Damian MD (president). Dr. Fannie Blackman M.D. have personally reviewed [...] is normal. Dictated by Pan Damian MD (president). Dr. Fannie Blackman M.D. have personally reviewed [...] CARDIAC RHYTHM STRIP ORDER (01/05/2020 7:02 PM EQUIPMENT SUPERINTENDENT) Only the most recent of2 resultswithin the time period is included. Narrative 01/05/2020 7:02 PM EQUIPMENT SUPERINTENDENT Ordered by an unspecified provider. Scanned Document CARDIAC SERVICES ORD ERABLES * APHERESIS/TRANSFUSION ORDER (01/05/2020 7:02 PM EQUIPMENT SUPERINTENDENT) Narrative 01/05/2020 7:02 PM EQUIPMENT SUPERINTENDENT Ordered by an unspecified provider. Scanned Document NURSING - VITAL SIGN S AND ASSESSMENT * XR CHEST 1VW PORTABLE (01/02/2020 8:35 AM EQUIPMENT SUPERINTENDENT) Only the most recent of4 resultswithin the time period is included. Anatomical Region Laterality Modality Chest Radiographic Lisy ging 01/02/2020 8:51 AM EQUIPMENT SUPERINTENDENT Impressions 01/02/2020 8:51 AM EQUIPMENT SUPERINTENDENT Clear lungs. Reading Radiologist: Kody Lord MD on 01/02/2020 at 8:51 AM Narrative 01/02/2020 8:51 AM EQUIPMENT SUPERINTENDENT Chest x-ray single view. HISTORY: Postop. Single [...] RDERABLES * CULTURE VRE (01/01/2020 1:14 PM EQUIPMENT SUPERINTENDENT) Culture Negative for vancomycin-resi stant Enterococci (VRE) JOSE 01/03/2020 7:[address] [facility] MICRO[facility]OLOG[facility] Microbiology ENTIRE RECTUM / Unknown Collection / Unknown 01/01/2020 1:14 PM EQUIPMENT SUPERINTENDENT 01/01/2020 1:26 PM EQUIPMENT SUPERINTENDENT Manpreet King MD LAB - MICROBIOLOGY O RDERABLES [facility] [address] [place] [address], [facility] [phone] * CULTURE MRSA (01/01/2020 1:14 PM EQUIPMENT SUPERINTENDENT) Only the most recent of2 resultswithin the time period is included. Culture Negative for methicillin-resist ant Staphylococcus aureus (MRSA) JOSE 01/03/2020 7:23 AM EQUIPMENT SUPERINTENDENT [facility] MICROBIOLOGY Microbiology ENTIRE RECTUM / Unknown Collection / Unknown 01/01/2020 1:14 PM EQUIPMENT SUPERINTENDENT 01/01/2020 1:26 PM EQUIPMENT SUPERINTENDENT Manpreet King MD LAB - MICROBIOLOGY O RDERABLES Performing Organization Address [facility] Co de Phone Number [facility]CROBIOLOGY [address] [place] [address], [facility] [phone] * SLIDE PREP HISTOLOGY (01/01/2020 8:42 AM EQUIPMENT SUPERINTENDENT) Client Specimen ID # [id number] 01/07/2020 6:02 PM EQUIPMENT SUPERINTENDENT [facility] PATH[facility] LAB Number of Blocks Received 0 01/07/2020 6:02 PM EQUIPMENT SUPERINTENDENT U PATHOLOGY LAB Number of Slides 1 01/07/2020 6:02 PM EQUIPMENT SUPERINTENDENT [facility] LAB Number of Control Slides 1 01/07/2020 6:02 PM EQUIPMENT SUPERINTENDENT [facility] PATHOLOGY LAB Pathology/Cytolo gy BIOPSY OF LUNG / Unknown 01/01/2020 8:42 AM EQUIPMENT SUPERINTENDENT 01/06/2020 3:30 PM EQUIPMENT SUPERINTENDENT Johnie Baum MD LAB - PATHOLOGY/CYTO LOGY ORDERABLES Performing Organization Address [facility] Co de Phone Number [facility] LAB [address] [place] [address], [facility] [phone] * GROSS + MICRO EXAM (STL) (01/01/2020 8:42 AM EQUIPMENT SUPERINTENDENT) Only the most recent of2 resultswithin the time period is included. Case Report Surgical Pathology Report Case: [id number] Authorizing Provider: Manpreet King MD Collected: 01/01/2020 08:42 AM Ordering Location: [facility] Received: 01/01/2020 10:55 AM Pathologist: Johnie Mendiola MD Specimens: A) - Nodule, left upper lung nodule B) - Implant, pleural implant 01/08/2020 3:23 PM [facility] Addendum 1 Immunohistochemical stains with appropriate controls show the neoplastic cells to stain with vimentin, CD10, focally with RCC and PAX8. No significant staining is noted with CK 7, CK 20, TTF-1 and Napsin A. These findings would be consistent with metastatic renal cell carcinoma. 01/08/2020 3:23 PM [facility] Addendum electronically signed by [...] due to cautery artifacts. 01/08/2020 3:23 PM [facility] Clinical History 59-year-old female with history of metastatic renal cell carcinoma 01/08/2020 3:23 PM [facility] Gross Description A. Received [...] uninvolved parenchyma displays a soft, purple-brown appearance. Quality Control Specialist sections are submitted as follows: A1 - shave of staple line A2-A5 - mass, submitted entirely in relation to staple line A6 - random uninvolved parenchyma B. Received in a container of formalin and labeled Suzette Pimenteler and pleural implant is a firm, valdovinos-white nodule measuring 1.7 x 1.6 x 0.7 cm. The specimen is inked black. Sectioning displays a focally necrotic, friable, valdovinos-huang cut surface. The specimen is submitted entirely in B1-B2. JULIET/vitor 01/08/2020 3:23 PM [facility] Microscopic Description Sections from the lung show malignant neoplasm composed of nests of cells with clear cytoplasm, distinct cell borders with [id number] pleomorphic nuclei. The neoplasm has a somewhat multinodular pattern with areas of central necrosis. The parenchyma margin of excision is free of carcinoma. Sections from the pleural mass shows a neoplasm with similar morphologic appearance. 01/08/2020 3:23 PM [facility] Disclaimer All histochemical and/or immunohistochemical results are interpreted with controls that demonstrate appropriate staining reactions before reporting results. Note on use of immunocytochemistry reagents: This test was developed and its performance characteristic determined by [facility], Department of Laboratory Medicine. It has not been cleared or approved by the U.S. Food and Drug Administration (FDA). The FDA has determined that such clearance or approval is not necessary. The test is used for clinical purpose. It should not be regarded as investigational or for research. This laboratory is certified to perform high complexity testing. 01/08/2020 3:23 PM [facility] Embedded Images 01/08/2020 3:23 PM [facility] Pathology/Cytology NODULE / Unknown 01/01 8:42 AM EQUIPMENT SUPERINTENDENT 01/01/2020 10:55 AM EQUIPMENT SUPERINTENDENT Comment:Pre-op diagnosis: Diagnosis unknown [R69] Miscellaneous samples (specimen) IMPLANT SUBMITTED SPECIMEN / Unknown 01/01/2020 8:51 AM EQUIPMENT SUPERINTENDENT 01/01/2020 10:55 AM EQUIPMENT SUPERINTENDENT Comment:Pre-op diagnosis: Diagnosis unknown [R69] Manpreet King MD LAB - PATHOLOGY/CYTO LOGY ORDERABLES [facility] [address] [place] [address] * IV PLACEMENT PERFORMABLE (01/01/2020 8:28 AM EQUIPMENT SUPERINTENDENT) Narrative SchoenbeckGerry APRN-CRNA - 01/01/2020 8:28 AM EQUIPMENT SUPERINTENDENT Gerry Glover APRN-CRNA 01/01/2020 8:28 AM Peripheral IV Line Placement: Patient Location: OR Procedure: IV start (50851). Procedure Section: Skin Prep: alcohol. Orientation: left Location: hand Local Anesthetic Used? No Catheter Gauge: 18 Number of Attempts: 1. Procedure Tolerance: performed while patient under general anesthesia. Procedure Start Time: 01/01/2020 8:00 AM. Staff Section Anesthesia Provider: Sami Carter MD, Performed the procedure Sami Carter MD GENERAL ANESTHESIA O RASHMI * ETT LINE PERFORMABLE (01/01/2020 8:22 AM EQUIPMENT SUPERINTENDENT) Narrative Gerry Glover APRN-CRNA - 01/01/2020 8:22 AM EQUIPMENT SUPERINTENDENT Gerry Glover APRN-CRNA 01/01/2020 8:23 AM Endotracheal Tube Placement: Patient Location: OR. Intubation Event Date/Time: 01/01/2020 7:51 AM Procedure: intubation (18652). Procedure Section: Sedation: under general anesthesia. Indications [...] TYPE + SCREEN PANEL (01/01/2020 6:35 AM EQUIPMENT SUPERINTENDENT) Only the most recent of2 resultswithin the time period is included. ABO AB 01/01/2020 7:08 AM [facility] Rh Type Positive 01/01/2020 7:08 AM EQUIPMENT SUPERINTENDENT [facility] Comment:History checked. Antibody Screen Negative 01/01/2020 7:08 AM EQUIPMENT SUPERINTENDENT [facility] Blood Bank BLOOD SPECIMEN / Unknown Venipuncture / Unknown 01/01/2020 6:35 AM EQUIPMENT SUPERINTENDENT 01/01/2020 6:42 AM EQUIPMENT SUPERINTENDENT Manpreet King MD LAB - BLOOD BANK ORD ERABLES Performing Organization Address City/[facility]/ZIP Co de Phone Number [facility] [address] [phone] * EKG 12-LEAD (12/25/2019 11:21 AM EQUIPMENT SUPERINTENDENT) Only the most recent of7 resultswithin the time period is included. Ventricular Rate 73 BPM [facility] Atrial Rate 73 BPM [facility] P-R Interval 152 ms [facility] QRS Duration ms 80 ms [facility] Q-T Interval ms 370 ms [facility] MUSE QTC Calculation (Bezet) 407 ms [facility] M[facility] Calculated P Newell 35 degrees [facility] Calculated R Newell -22 degrees [facility] Calculated T Newell 8 degrees [facility] Interpretation EKG NORMAL SINUS RHYTHM POSSIBLE LEFT ATRIAL ENLARGEMENT LEFT VENTRICULAR HYPERTROPHY NONSPECIFIC T WAVE CHANGES ABNORMAL ECG NO PREVIOUS ECGS AVAILABLE Confirmed by DO Turner Stephanie ([id number]) on 12/26/2019 9:13:56 AM [facility] M[facility] 12/25/2019 11:2 1 AM EQUIPMENT SUPERINTENDENT 12/26/2019 9:13 AM EQUIPMENT SUPERINTENDENT Manpreet King MD ECG ORDERABLES Performing Organization Address [facility]/ZIP Co de Phone Number [facility] * XR CHEST 2VW (12/25/2019 10:47 AM EQUIPMENT SUPERINTENDENT) Anatomical Region Laterality Modality Chest Radiographic Lisy ging 12/25/2019 10:5 0 AM EQUIPMENT SUPERINTENDENT Impressions 12/25/2019 10:54 AM EQUIPMENT SUPERINTENDENT Previously seen left upper lobe pulmonary nodule is not identified. Hypoventilated lungs with left basilar atelectasis. Reading Radiologist: Jonathan Cortes MD on 12/25/2019 at 10:54 AM Narrative 12/25/2019 10:54 AM EQUIPMENT SUPERINTENDENT Chest 2 views INDICATION: Lung cancer. FINDINGS: [...] * URINE MICROSCOPIC ONLY (12/25/2019 10:02 AM EQUIPMENT SUPERINTENDENT) RBC UA 0-2 None Seen, 0-2, 3-5 # /hpf 12/25/2019 11:03 AM EQUIPMENT SUPERINTENDENT [facility] WBC UA 0-5 None Seen, 0-5 # /hpf 12/25/2019 11:03 AM EQUIPMENT SUPERINTENDENT [facility] Bacteria UA None Seen None Seen 12/25/2019 11:03 AM EQUIPMENT SUPERINTENDENT [facility] Squamous Epithelial Cells 0-2 None Seen, 0-2, 3-5 /hpf 12/25/2019 11:03 AM [facility] Urine URINE SPECIMEN OBTAINED BY CLEAN CATCH PROCEDURE / Unknown Collection / Unknown 12/25/2019 10:02 AM EQUIPMENT SUPERINTENDENT 12/25/2019 10:40 AM EQUIPMENT SUPERINTENDENT Narrative [facility] - 12/25/2019 11:03 AM EQUIPMENT SUPERINTENDENT Manpreet King MD LAB - URINALYSIS ORD ERABLES [facility] [address] [place], [place] [id number] * PT PTT PANEL (12/25/2019 10:02 AM EQUIPMENT SUPERINTENDENT) PT 13.7 12.1 - 14.8 sec 12/25/2019 11:03 AM EQUIPMENT SUPERINTENDENT [facility] INR 1.1 0.9 - 1.1 12/25/2019 11:03 AM EQUIPMENT SUPERINTENDENT [facility] PTT 27.8 23.0 - 38.4 sec 12/25/2019 11:03 AM EQUIPMENT SUPERINTENDENT [facility] Blood BLOOD SPECIMEN / Unknown Venipuncture / Unknown 12/25/2019 10:02 AM EQUIPMENT SUPERINTENDENT 12/25/2019 10:40 AM EQUIPMENT SUPERINTENDENT Narrative [facility] - 12/25/2019 11:03 AM EQUIPMENT SUPERINTENDENT Conventional Warfarin Anticoagulant Therapy: INR Reference Range: 2.0-3.0 Intensive Warfarin Anticoagulant Therapy: INR Reference Range: 2.5-3.5 Heparin Therapeutic Range for PTT: 71.0 - 109.0 seconds. Manpreet King MD LAB - COAGULATION OR DERABLES Performing Organization Address City/State/[facility] Co de Phone Number [facility] [address] [place] [address] * CT CHEST W CONTRAST (12/02/2019 11:12 AM EQUIPMENT SUPERINTENDENT) Anatomical Region Laterality Modality Chest Computed Tomogra phy 12/02/2019 11:1 6 AM EQUIPMENT SUPERINTENDENT Impressions 12/02/2019 11:25 AM EQUIPMENT SUPERINTENDENT Increase in size of the left upper lobe lung nodule. Mediastinal and left hilar adenopathy as described. Multiple hypodensities within the liver which are indeterminate. However, these would be concerning for metastatic disease. Reading Radiologist: Jonathan Cortes MD on 12/02/2019 at 11:25 AM Narrative 12/02/2019 11:[address] Chest with IV contrast INDICATION:Left upper [...] POINT OF CARE (IP) (12/02/2019 11:09 AM EQUIPMENT SUPERINTENDENT) Creatinine POCT 0.74 0.7 - 1.2 mg/dL [facility] POCT TESTING QC Verified Yes Yes [facility] POC T TESTING Blood BLOOD SPECIMEN / Unknown 12/02/2019 11:09 AM EQUIPMENT SUPERINTENDENT Manpreet King MD LAB - POINT OF CARE ORDERABLES Performing Organization Address City/[facility]/ZIP Co de Phone Number [facility] POCT TESTING [address] [phone] * [facility]DH BLOOD (09/22/2019 1:58 PM EQUIPMENT SUPERINTENDENT) Only the most recent of22 resultswithin the time period is included. [facility] Total 185 125 - 243 Units/L 09/22/2019 2:24 PM EQUIPMENT SUPERINTENDENT [facility] Blood BLOOD SPECIMEN / Unknown Lab Venipuncture / Unknown 09/22/2019 1:58 PM EQUIPMENT SUPERINTENDENT 09/22/2019 2:02 PM EQUIPMENT SUPERINTENDENT Wai Tse MD LAB - CHEMISTRY HELENA LANDA [facility] [address] [place] [address] * XR CHEST INSPIRATION AND EXPIRATION (09/18/2019 1:27 PM EQUIPMENT SUPERINTENDENT) Only the most recent of2 resultswithin the time period is included. Anatomical Region Laterality Modality Chest Radiographic Lisy ging 09/18/2019 1:31 PM EQUIPMENT SUPERINTENDENT Impressions 09/18/2019 1:51 PM EQUIPMENT SUPERINTENDENT Negative for pneumothorax. Edited by Nadeen Rose on 09/18/2019 1:43 PM Reading Radiologist: Kody Lord MD on 09/18/2019 at 1:51 PM Narrative 09/18/2019 1:51 PM EQUIPMENT SUPERINTENDENT CHEST X-RAY INSPIRATION AND EXPIRATION HISTORY: Post [...] O RDERABLES * PT-INR (09/18/2019 7:50 AM EQUIPMENT SUPERINTENDENT) PT 12.3 12.1 - 14.8 sec 09/18/2019 8:00 AM EQUIPMENT SUPERINTENDENT [facility] INR 1.0 0.9 - 1.1 09/18/2019 8:00 AM [facility] Blood BLOOD SPECIMEN / Unknown Venipuncture / Unknown 09/18/2019 7:50 AM EQUIPMENT SUPERINTENDENT 09/18/2019 7:50 AM EQUIPMENT SUPERINTENDENT Narrative [facility] - 09/18/2019 8:00 AM EQUIPMENT SUPERINTENDENT Conventional Warfarin Anticoagulant Therapy: INR Reference Range: 2.0-3.0 Intensive Warfarin Anticoagulant Therapy: INR Reference Range: 2.5-3.5 Micah Barraza MD LAB - COAGULATION OR DERABLES [facility] [address], [place] [id number] * IR PICC LINE INSERT (03/05/2015 9:56 AM CDT) Only the most recent of3 resultswithin the time period is included. Anatomical Region Laterality Modality Other Impressions 03/05/2015 2:57 PM CDT Impression: Removal of left double-lumen 9.5 Stateless chest port under fluoroscopic guidance, as described above. Note: Keep the dressing dry for 5 days. This report was approved by Won Shirley on 03/05/2015 2:48 PM . I, Dr. ALEJANDRO JENKINS M.D. have personally reviewed and interpreted this examination/study. This report was electronically signed by ALEJANDRO JENKINS M.D. on 03/05/2015 2:57 PM . Narrative 03/05/2015 2:57 PM CDT History: This is a 55-year-old female with a history of renal cell carcinoma who is now completed chemotherapy and is in total remission. She presents for chest port removal. Operators:ERIC Jackman Physician Physical Optics Teacher Anesthesia: 1. Local anesthesia - 20 ml of one percent lidocaine with epinephrine 2. Intravenous Conscious Sedation (Versed 2 mg and Fentanyl 100 mcg). Procedure: Removal of left double-lumen 9.5 Stateless chest port, under fluoroscopic guidance. Duration of the procedure: Appx 20 minutes. Fluoroscopy time: 0.2 minutes. Procedure in detail: The procedure, risks and possible complications were explained to the patient in detail, and an informed consent was obtained. The patient was placed supine on the angiographic table. The left neck and upper chest were prepped and draped in the usual sterile manner. A community health outreach worker film of chest was obtained, which demonstrated [...] transferred in stable condition. Procedure Note Alejandro Jenkins MD - 02/09/2018 History: This is a 55-year-old female with a history of renalcell carcinoma who is now completed chemotherapy and is in totalremission. She presents for chest port removal. Operators:Bahman LOPEZ , IR Physician Physical Optics Teacher Anesthesia: 1. Local anesthesia - 20 ml of one percent lidocaine with epinephrine 2. Intravenous Conscious Sedation (Versed 2 mg and Fentanyl 100 mcg). Procedure: Removal of left double-lumen 9.5 Stateless chest port, underfluoroscopic guidance. Duration of the procedure: Appx 20 minutes. Fluoroscopy time: 0.2 minutes. Procedure in detail: The procedure, risks and possible complications wereexplained to the patient in detail, and an informed consent was obtained.The patient was placed supine on the angiographic table. The left neck and upper chest were prepped and draped in the usual sterilemanner. A community health outreach worker film of chest was obtained, which demonstrated [...] IMPRESSION Impression: Removal of left double-lumen 9.5 Stateless chest port underfluoroscopic guidance, as described above. Note: Keep the dressing dry for 5 days. This report was approved by Won Shirley on 03/05/2015 2:48PM . IDr. ALEJANDRO M.D. have personally reviewed and interpreted thisexamination/study. This report was electronically signed by ALEJANDRO JENKINS M.D. on03/05/2015 2:57 PM . Wai Tse MD IR ORDERABLES * IR CENTRAL LINE REMOVAL (03/05/2015 9:56 AM CDT) Anatomical Region Laterality Modality Other Impressions 03/05/2015 2:57 PM CDT Impression: Removal of left double-lumen 9.5 Stateless chest port under fluoroscopic guidance, as described above. Note: Keep the dressing dry for 5 days. This report was approved by Won Shirley on 03/05/2015 2:48 PM . I, Dr. ALEJANDRO JENKINS M.D. have personally reviewed and interpreted this examination/study. This report was electronically signed by ALEJANDRO JENKINS M.D. on 03/05/2015 2:57 PM . Narrative 03/05/2015 2:57 PM CDT History: This is a 55-year-old female with a history of renal cell carcinoma who is now completed chemotherapy and is in total remission. She presents for chest port removal. Operators:Bahman LOPEZ , ERIC Physician Physical Optics Teacher Anesthesia: 1. Local anesthesia - 20 ml of one percent lidocaine with epinephrine 2. Intravenous Conscious Sedation (Versed 2 mg and Fentanyl 100 mcg). Procedure: Removal of left double-lumen 9.5 Stateless chest port, under fluoroscopic guidance. Duration of the procedure: Appx 20 minutes. Fluoroscopy time: 0.2 minutes. Procedure in detail: The procedure, risks and possible complications were explained to the patient in detail, and an informed consent was obtained. The patient was placed supine on the angiographic table. The left neck and upper chest were prepped and draped in the usual sterile manner. A community health outreach worker film of chest was obtained, which demonstrated [...] transferred in stable condition. Procedure Note Alejandro Jenkins MD - 02/09/2018 History: This is a 55-year-old female with a history of renalcell carcinoma who is now completed chemotherapy and is in totalremission. She presents for chest port removal. Operators:Bahman LOPEZ , IR Physician Physical Optics Teacher Anesthesia: 1. Local anesthesia - 20 ml of one percent lidocaine with epinephrine 2. Intravenous Conscious Sedation (Versed 2 mg and Fentanyl 100 mcg). Procedure: Removal of left double-lumen 9.5 Stateless chest port, underfluoroscopic guidance. Duration of the procedure: Appx 20 minutes. Fluoroscopy time: 0.2 minutes. Procedure in detail: The procedure, risks and possible complications wereexplained to the patient in detail, and an informed consent was obtained.The patient was placed supine on the angiographic table. The left neck and upper chest were prepped and draped in the usual sterilemanner. A community health outreach worker film of chest was obtained, which demonstrated [...] IMPRESSION Impression: Removal of left double-lumen 9.5 Stateless chest port underfluoroscopic guidance, as described above. Note: Keep the dressing dry for 5 days. This report was approved by Won Shirley on 03/05/2015 2:48PM . IDr. ALEJANDRO M.D. have personally reviewed and interpreted thisexamination/study. This report was electronically signed by ALEJANDRO JENKINS M.D. on03/05/2015 2:57 PM . Wai Tse MD IR ORDERABLES * CULTURE BLOOD (01/03/2015 9:55 PM EQUIPMENT SUPERINTENDENT) Only the most recent of35 resultswithin the time period is included. Culture Blood No Growth at 5 days [facility] Blood specimen (specimen) BLOOD SPECIMEN / Unknown 01/03/2015 9:55 PM EQUIPMENT SUPERINTENDENT 01/03/2015 10:05 PM EQUIPMENT SUPERINTENDENT Narrative [facility] - 01/08/2015 10:15 PM EQUIPMENT SUPERINTENDENT Draw 15 minutes after Culture 1 from a different site Specimen Type->Blood Wai Tse MD LAB - MICROBIOLOGY O RDERABLES Performing Organization Address [facility] Co de Phone Number [address] [phone] * PTT SLU (01/03/2015 11:36 AM EQUIPMENT SUPERINTENDENT) Only the most recent of24 resultswithin the time period is included. APTT 26.1 23.0 - 38.4 Seconds [facility] Comment:Suggested therapeuti c range for full dose I.V. heparin therapy for venous thromboembolism is 66.0-91.0 seconds. Blood specimen (specimen) BLOOD SPECIMEN / Unknown 01/03/2015 11:36 AM EQUIPMENT SUPERINTENDENT 01/03/2015 11:37 AM EQUIPMENT SUPERINTENDENT Narrative [facility] - 01/03/2015 11:58 AM EQUIPMENT SUPERINTENDENT Is patient on Heparin, Argatroban or Dabigatran?->N Wai Tse MD LAB - COAGULATION OR DERABLES Performing Organization Address [facility]/ZIP Co de Phone Number [address] [phone] * PHOSPHORUS BLOOD (01/03/2015 11:36 AM EQUIPMENT SUPERINTENDENT) Only the most recent of61 resultswithin the time period is included. Phosphorus 3.8 2.3 - 4.7 mg/dL [facility] Blood specimen (specimen) BLOOD SPECIMEN / Unknown 01/03/2015 11:36 AM EQUIPMENT SUPERINTENDENT 01/03/2015 1:39 PM EQUIPMENT SUPERINTENDENT Wai Tse MD LAB - CHEMISTRY HELENA LANDA Performing Organization Address [facility] Co de Phone Number [address] [phone] * (ABNORMAL) BILIRUBIN DIRECT (12/06/2014 10:11 AM EQUIPMENT SUPERINTENDENT) Only the most recent of21 resultswithin the time period is included. Bilirubin Conjugated 0.6(H) 0.0 - 0.5 mg/dL [facility] Bilirubin Unconjugated 2.2 Unconjugated Bilirubin is a calculated value: Reference ranges have not been established. mg/dL [facility] Blood specimen (specimen) BLOOD SPECIMEN / Unknown 12/06/2014 10:11 AM EQUIPMENT SUPERINTENDENT 12/06/2014 10:26 AM EQUIPMENT SUPERINTENDENT Wai Tse MD LAB - CHEMISTRY HELENA LANDA Performing Organization Address [facility] Co de Phone Number [address] [phone] * CULTURE URINE (12/06/2014 5:27 AM EQUIPMENT SUPERINTENDENT) Only the most recent of3 resultswithin the time period is included. Culture Urine Greater than or Equal to 10,000 CFU/ML Normal Urogenital/ Skin Candy at 48 Hours [facility] Comment: Urine specimen (specimen) URINE SPECIMEN OBTAINED BY CLEAN CATCH PROCEDURE / Unknown 12/06/2014 5:27 AM EQUIPMENT SUPERINTENDENT 12/06/2014 5:31 AM EQUIPMENT SUPERINTENDENT Narrative [facility] - 12/08/2014 10:31 AM EQUIPMENT SUPERINTENDENT Specimen Type->Urine Wai Tse MD LAB - MICROBIOLOGY O RDERAASTER Performing Organization Address [facility] Co de Phone Number [address] [phone] * URIC ACID BLOOD (09/25/2014 12:11 PM EQUIPMENT SUPERINTENDENT) Only the most recent of3 resultswithin the time period is included. Uric Acid 5.7 2.6 - 7.2 mg/dL [facility] Blood specimen (specimen) BLOOD SPECIMEN / Unknown 09/25/2014 12:11 PM EQUIPMENT SUPERINTENDENT 09/25/2014 12:29 PM EQUIPMENT SUPERINTENDENT Wai Tse MD LAB - CHEMISTRY HELENA Connolly Organization Address City/State/ZIP Co de Phone Number [facility] [address] [phone] * IR CENTRAL VENOUS CATH CHECK (08/04/2014 [...] 08/07/2014 2:23 PM . I, Dr. ALEJANDRO JENKINS M.D. have personally reviewed and interpreted this examination/study. This report was electronically signed by ALEJANDRO JENKINS M.D. on 08/08/2014 4:25 PM . Narrative 08/08/2014 4:25 PM CDT Clinical History: This is a 54-year-old female with renal cell carcinoma being treated with chemotherapy who presents for port check. Reportedly there has been no difficulty with transfusion however drawing of blood has been increasingly difficult to the point of unobtainable. Procedure: PORT Check Operators: Bahman LOPEZ , IR Physician Physical Optics Teacher, Technique: The patient was placed in the supine position on the angiographic table. A representative phlebotomy services image was recorded and placed in the [...] less than 5 cc. Procedure Note Alejandro Jenkins MD - 02/09/2018 Clinical History: This is a 54-year-old female with renal cell carcinoma being treated withchemotherapy who presents for port check. Reportedly there has been nodifficulty with transfusion however drawing of blood has been increasinglydifficult to the point of unobtainable. Procedure: PORT Check Operators: Bahman LOPEZ , IR Physician Physical Optics Teacher, Technique: The patient was placed in the [...] fibrinous sheath at tip of catheter. Dr. AndersonMORENOreviewed the fluoroscopy films with me and was [...] on 08/07/2014 2:23PM . I, Dr. ALEJANDRO JENKINS M.D. have personally reviewed and interpreted thisexamination/study. This report was electronically signed by ALEJANDRO JENKINS M.D. on08/08/2014 4:25 PM . Wai Tse MD IR ORDERABLES * CYTOMEGALOVIRUS DNA RT-PCR QUANT (07/03/2014 7:55 PM CDT) Cytomegalovirus DNA Quantitative PCR Specimen: 1 ml Plasma Reference: [id number] Test: Cytomegalovirus Detection (Quantitative) RESULT Not Detected [...] determined by the [facility] Diagnostic Laboratory at [facility]. It has not been cleared or approved [...] complexity clinical laboratory testing. Test performed at [facility], [address] [place] [id number] This case has been personally reviewed and interpreted by the attending (teaching) pathologist. Final Diagnosis performed by Sachin Hollis PHD. Electronically signed 07/06/2014 [facility] ([facility]) Blood specimen (specimen) BLOOD SPECIMEN / Unknown 07/03/2014 7:55 PM CDT 07/03/2014 8:58 PM CDT Wai Tse MD LAB - MICROBIOLOGY O RDERABLES [facility] ([facility]) * (ABNORMAL) DIFFERENTIAL MANUAL (05/04/2014 1:39 PM CDT) Only the most recent of2 resultswithin the time period is included. WBC (corrected for NRBC) 4.2 10 3/uL [facility] Total Cell Count 100 [facility] Neutrophils Absolute Manual 2.27 1.60 - 7.00 10 3/uL [facility] Comment:(BANDS+SEGS) x WBC = NEUT # (ANC) Lymphocyte Absolute Manual 1.39 0.80 - 2.90 10 3/uL [facility] Monocytes Absolute Manual 0.21 0.14 - 0.66 10 3/uL [facility] Eosinophils Absolute Manual 0.25(H) 0.00 - 0.22 10 3/uL [facility] Basophil Absolute Manual 0.08(H) 0.00 - 0.06 10 3/uL [facility] Neutrophil % Manual 54 30 - 60 % [facility] Lymphocyte % Manual 33 20 - 45 % [facility] Monocytes % Manual 5 2 - 10 % [facility] Eosinophils % Manual 6 1 - 6 % [facility] Basophils % Manual 2 0 - 3 % [facility] Platelet Estimate Adequate Adequate [facility] RBC Morphology Normal [facility] Blood specimen (specimen) BLOOD SPECIMEN / Unknown 05/04/2014 1:39 PM CDT 05/04/2014 2:28 PM CDT Wai Tse MD LAB - HEMATOLOGY ORD ERABLES [address] [phone] * MRI ABDOMEN WWO CONTRAST (04/17/2014 10:59 AM CDT) Anatomical Region Laterality Modality Abdomen Other Impressions 04/17/2014 2:29 PM CDT IMPRESSION: 1. Status post right adrenalectomy and right nephrectomy. No evidence of residual or recurrent neoplasia. This report was dictated by Carrillo Willoughby MD (president). This report was approved by Carrillo Willoughby [...] after the uneventful administration of intravenous gadolinium bkrorbyi77 mL Multihance according to standard protocol COMPARISON: [...] report was dictated by Carrillo Willoughby MD (president). This report was approved by Carrillo Willoughby M.D. on 04/17/2014 2:29 PM . I, Dr. KUN CRANDALL M.D. have personally reviewed and interpreted thisexamination/study. This report was electronically signed by KUN CRANDALL M.D. on 04/17/20142:29 PM . Wai Tse MD MR ORDERABLES * (ABNORMAL) CREATININE BLOOD - POCT (IP) [facility] (04/17/2014) Creatinine POCT 1.04 0.3 - 1.3 mg/dL [facility] eGFR POCT 58(A) 60 ml/min [facility] 04/17/2014 Mikael Bonilla MD LAB - POINT OF CA RE ORDERABLES [facility] * (ABNORMAL) URINALYSIS W/MICROSCOPIC NO CULTURE (03/03/2014 3:28 PM CDT) Only the most recent of4 resultswithin the time period is included. Color UA Yellow Straw, Yellow, Colorless, Light Yellow [facility] Clarity UA Clear Clear [facility] Specific Peterson UA 1.015 1.001 - 1.030 [facility] pH UA 5.0 5.0 - 8.0 [facility] Protein UA Trace(A) <=20 mg/dL [facility] Glucose UA Negative Negative mg/dL [facility] Ketone UA Negative Negative mg/dL [facility] Bilirubin UA Negative Negative mg/dL [facility] Blood UA Negative Negative [facility] Nitrite UA Negative Negative [facility] Leukocyte Esterase Negative Negative [facility] Urobilinogen UA <2.0 <2.0 mg/dL [facility] RBC UA 2 0 - 8 /HPF [facility] WBC UA 3(H) 0 - 2 /HPF [facility] Bacteria UA Occasional Rare, Occasional, None /HPF [facility] Squamous Epithelial Cells UA 8(H) 0 - 1 /HPF [facility] Mucus UA Many(A) None /LPF [facility] Hyaline Casts UA 10(H) 0 - 2 /LPF [facility] Urine specimen (specimen) URINE SPECIMEN OBTAINED BY CLEAN CATCH PROCEDURE / Unknown 03/03/2014 3:28 PM CDT 03/03/2014 5:03 PM CDT Wai Tse MD LAB - URINALYSIS ORD ERABLES Performing Organization Address City/State/[facility] Co de Phone Number [facility] [address] [place] [address] * XR CHEST 1VW (01/02/2014 3:58 PM EQUIPMENT SUPERINTENDENT) Anatomical Region Laterality Modality Chest Other Impressions 01/02/2014 6:31 PM EQUIPMENT SUPERINTENDENT Impression: Left internal jugular Port-A-Cath ending in the superior vena cava. Minimal bilateral pleural effusions. Known bilateral pulmonary nodules not well visualized. Report dictated by Wendy Garcia M.D. (resident). I, Dr. YUDY COVARRUBIAS M.D. have personally reviewed and interpreted this examination/study. This report was electronically signed by YUDY COVARRUBIAS M.D. on 01/02/2014 6:31 PM . Narrative 01/02/2014 6:31 PM EQUIPMENT SUPERINTENDENT Exam: Chest, AP. Date: 01/02/2014 4:00 PM [...] is within normal limits. Procedure Note Yudy Covarrubias MD - 02/09/2018 Exam: Chest, AP. Date: [...] Wendy Garcia M.D. (resident). I, Dr. YUDY COVARRUBIAS M.D. have personally reviewed and interpreted thisexamination/study. This report was electronically signed by YUDY COVARRUBIAS M.D. on 01/02/20146:31 PM . Wai Tse MD DIAGNOSTIC IMAGING O RDERABLES * CLOSTRIDIUM DIFFICILE GDH AG + TOXIN A+B (10/28/2013 11:30 AM EQUIPMENT SUPERINTENDENT) Only the most recent of3 resultswithin the time period is included. C difficile Toxin Assay NEGATIVE FOR CLOSTRIDIUM DIFFICILE ANTIGEN AND TOXINS. REFERENCE RANGE = NEGATIVE. [facility] Stool specimen (specimen) STOOL SPECIMEN / Unknown 10/28/2013 11:30 AM EQUIPMENT SUPERINTENDENT 10/28/2013 12:38 PM EQUIPMENT SUPERINTENDENT Narrative [facility] - 10/29/2013 12:13 PM EQUIPMENT SUPERINTENDENT Specimen Type->Feces Wai Tse MD LAB - MICROBIOLOGY O RDERABLES Performing Organization Address [facility] Co de Phone Number [address] [phone] * LAB HISTORICAL RESULTS-ONBASE (09/18/2013) Only the most recent of3 resultswithin the time period is included. 09/18/2013 Narrative [facility] - 09/26/2013 2:29 PM EQUIPMENT SUPERINTENDENT Historical Provider LAB - CHEMISTRY O RASHMI Performing Organization Address [facility] Co de Phone Number [facility] [address] * VAS BILATERAL VENOUS DUPLEX LE (08/13/2013 1:50 PM CDT) Only the most recent of2 resultswithin the time period is included. Anatomical Region Laterality Modality Other Wai Tse MD VASCULAR LAB ORDERAB LES * SODIUM URINE RANDOM (08/01/2013 2:30 PM CDT) Sodium Urine 22 mmol/L [facility] Comment: REFERENCE RANGE: NONE ESTABLISHED FOR RANDOM URINE SPECIMENS. Urine specimen (specimen) URINE SPECIMEN OBTAINED BY CLEAN CATCH PROCEDURE / Unknown 08/01/2013 2:30 PM CDT 08/01/2013 3:03 PM CDT Wai Tse MD LAB - URINE CHEMISTR Y ORDERABLES Performing Organization Address [facility] Co de Phone Number [address] [phone] * CREATININE URINE RANDOM (08/01/2013 2:30 PM CDT) Creatinine Random Urine 164 mg/dL [facility] Comment: REFERENCE RANGE: NONE ESTABLISHED FOR RANDOM URINE SPECIMENS. Urine specimen (specimen) URINE SPECIMEN OBTAINED BY CLEAN CATCH PROCEDURE / Unknown 08/01/2013 2:30 PM CDT 08/01/2013 3:03 PM CDT Wai Tse MD LAB - URINE CHEMISTR Y ORDERABLES [address] [phone] * IR RICK CATH INSERT (07/28/2013 10:47 AM CDT) Anatomical Region Laterality Modality Other Impressions 07/28/2013 3:11 PM CDT Impression: Placement of a double lumen 9.5 Stateless by 30 cm chest port, via left [...] left chest. 3. Placement of dual-lumen 9.5 Stateless chest port via left internal jugular vein [...] draped in the usual sterile manner. A community health outreach worker film of chest was obtained, which demonstrated [...] lidocaine anesthesia along the tunnel. A 9.5 Stateless peel-away sheath and dilator combination was advanced [...] the leftchest. 3. Placement of dual-lumen 9.5 Stateless chest port via left internaljugular vein approach [...] anddraped in the usual sterile manner. A community health outreach worker film of chest was obtained,which demonstrated no [...] locallidocaine anesthesia along the tunnel. A 9.5 Stateless peel-away sheath anddilator combination was advanced over [...] Impression: Placement of a double lumen 9.5 Stateless by 30 cm chest port,via left internal [...] Impression: Placement of a double lumen 9.5 Stateless by 30 cm chest port, via left [...] left chest. 3. Placement of dual-lumen 9.5 Stateless chest port via left internal jugular vein [...] draped in the usual sterile manner. A community health outreach worker film of chest was obtained, which demonstrated [...] lidocaine anesthesia along the tunnel. A 9.5 Stateless peel-away sheath and dilator combination was advanced [...] the leftchest. 3. Placement of dual-lumen 9.5 Stateless chest port via left internaljugular vein approach [...] anddraped in the usual sterile manner. A community health outreach worker film of chest was obtained,which demonstrated no [...] locallidocaine anesthesia along the tunnel. A 9.5 Stateless peel-away sheath anddilator combination was advanced over [...] Impression: Placement of a double lumen 9.5 Stateless by 30 cm chest port,via left internal [...] . Wai Tse MD IR ORDERABLES * PATH CONSULT CLINICAL (07/07/2013 12:48 PM CDT) Pathology Consult () [facility] Comment: CLINICAL HISTORY: The patient is a 53 year-old woman with right kidney mass, status post nephrectomy. FINAL DIAGNOSIS: KIDNEY, RIGHT, RADICAL NEPHRECTOMY ([id number], A; 05/12/2013): - RENAL CELL CARCINOMA, CLEAR CELL TYPE (BRENDON'S NUCLEAR GRADE III) - LYMPHOVASCULAR INVASION IDENTIFIED - ONE OF TWO LYMPH NODES POSITIVE FOR METASTATIC CARCINOMA (1/2) - ADRENAL GLAND INVOLVED BY METASTATIC RENAL CELL CARCINOMA INTRA-AORTOCAVAL MASS, EXCISION ([id number], B): - METASTATIC RENAL CELL CARCINOMA, CLEAR CELL TYPE - FIVE OF NINE LYMPH NODES POSITIVE FOR METASTATIC CARCINOMA (5/9) LUMBAR VERTEBRAL BODY, MASS, EXCISION ([id number], C): - METASTATIC RENAL CELL CARCINOMA, CLEAR CELL TYPE MATERIALS RECEIVED: Received from [facility], [address] [place] [address], [place] [address] are 29 H E stained glass slides labeled [id number] (A1 thru A18, B1 thru B10, C1) and the corresponding pathology report on Suzette Shoemaker . All material will be returned and a copy of our report will be forwarded. MICROSCOPIC DESCRIPTION: The review of the slides labeled [id number], A show a large renal mass comprised [...] nodes. The review of the slides labeled [id number], B show fragments of soft tissue involved by metastatic renal cell carcinoma, clear cell type, as well as nine lymph nodes, five of which are involved by metastatic renal cell carcinoma. The review of the slide labeled [id number], C shows metastatic involvement by renal cell carcinoma, clear cell type. JUAN// The performance characteristics of all immunohistochemical and indirect immunofluorescence stains (if any) cited in this report were determined by the [facility] in compliance with CLIA '88 regulations. Some of these tests rely on the use of analyte-specific reagents and are subject to specific labeling requirements by the FDA. Such tests were developed by the [facility] and have not been cleared or approved [...] Tse MD LAB - PATHOLOGY/CYTO LOGY ORDERABLES [address] [phone] Care Teams Psychiatric Clinician Relationship Specialty Start Date End Date Myriam Jorgensen MD [address] [place] [address] PCP - General 10/16/22
--- OUTSIDE RECORDS SUMMARY | 2025-01-05 13:52 | XMS_ITS | Clinical Summary ---
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 before breakfast Active amLODIPine (NORVASC) 10 mg tablet TK 1 T PO QD 0 Active Active Problems Problem Noted Date Diagnosed Date S/p nephrectomy 09/23/2019 Primary osteoarthritis of right hip 06/02/2019 Overview (06/02/2019): Added automatically from request for surgery [id number] Primary malignant neoplasm 02/01/2014 Other pulmonary embolism [...] on file Legal Sex Female 11:13 AM SHOTBLAST EQUIPMENT OPERATOR Gender Identity Not on file Sexual Orientation Not on file Obstetrics History Last Filed Vital Signs Vital Sign Reading Time Taken Comments Blood Pressure 127/58 09/24/2019 2:58 PM SHOTBLAST EQUIPMENT OPERATOR Pulse 74 09/24/2019 2:58 PM SHOTBLAST EQUIPMENT OPERATOR Temperature 36.8 C (98.2 F) 09/24/2019 11:27 AM SHOTBLAST EQUIPMENT OPERATOR Respiratory Rate 18 09/24/2019 11:27 AM SHOTBLAST EQUIPMENT OPERATOR Oxygen Saturation 96% 09/24/2019 2:58 PM SHOTBLAST EQUIPMENT OPERATOR Inhaled Oxygen Concentration - - Weight 86.3 kg (190 lb 3.2 oz) 10/19/2020 9:55 A M SHOTBLAST EQUIPMENT OPERATOR Height 161.3 cm (5' 3.5 ) 10/19/2020 9:55 AM SHOTBLAST EQUIPMENT OPERATOR Body Mass Index 33.16 10/19/2020 9:55 AM SHOTBLAST EQUIPMENT OPERATOR Plan of Treatment Health Maintenance Due Date [...] - Td or Tdap) 04/23/2027 04/23/2017, 03/20/2007 Hepatitis B Screening Completed 08/25/2021 Medical Devices Implanted Type Area Correctional Counselor Device Identifier Shelf Expiration Date Model / Serial / Lot [employer] [id number] Screw Bone Trident Ii L25mm Od6.5mm Low Profile Hexagonal Sterile - S0 - [id number] Implanted:Qty: 1 on 09/23/2019 by Heber Whittaker MD at [facility] Screw Right: Hip [employer] [id number] 05/05/2024 4539-0677 / 0 / [id number] Description: Hip Left: Hip [employer] [id number] Screw Bone Trident Ii L30mm Od6.5mm Low Profile Hexagonal Sterile - S0 - [id number] Implanted:Qty: 1 on 09/23/2019 by Heber Whittaker MD at [facility] Right: Hip [employer] [id number] 05/27/2024 4914-5157 / 0 / [id number] Description: [employer] 702-04-58f Shell Acetabular Trident Ii Tritanium F Od58mm Hip 5 Screw Hole Cluster Sterile - S0 - [id number] Implanted:Qty: 1 on 09/23/2019 by Heber Whittaker MD at [facility] Right: Hip [employer] [id number] 04/14/2024 702-04-58F / 0 / [id number] Description: [employer] 623-00-36f 36mm 7.9mm Hip 0d F Liner Acetabular X3 - S0 - [id number] Implanted:Qty: 1 on 09/23/2019 by Heber Whittaker MD at [facility] Right: Hip [employer] [id number] 06/14/2024 623-00-36F / 0 / [id number] Description:kf [employer] [id number] Accolade 102mm 30mm Modular Hip 127d 3 Taper Stem Femoral Sterile - S0 - [id number] Implanted:Qty: 1 on 09/23/2019 by Heber Whittaker MD at [facility] Right: Hip [employer] [id number] / 0 / [id number] Description:kf [employer] 6570-0-236 V40 36mm Anatomic Hip +5mm Offset Taper Head Femoral [employer] Delta - [id number] Implanted:Qty: 1 on 09/23/2019 by Heber Whittaker MD at [facility] Right: Hip [employer] [id number] 07/29/2024 6570-0-236 / / [id number] Description:kf Insurance [facility] [employer] Address: [facility] [address] [place] [address] [facility] CHO[employer]US [facility] [employer] Address: [facility] [address] [place] [address] Advance Directives For more information, please contact: [phone] * Full Code (Latest Code Status on File) Date Activated Date Inactivated Comments 09/23/2019 4:16 PM 09/24/2019 10:29 PM Care Teams Sheet Cutting Operator Relationship Specialty Start Date End Date Marycarmen Ruiz MD PCP - General Family Practice 04/28/19
--- OUTSIDE RECORDS SUMMARY | 2025-01-05 13:52 | XMS_ITS ---
Author Organization [facility] Address [address] [place] [address] Care Team Providers Care Chair Name Role Phone Myriam Jorgensen MD Primary Care Provider [phone] Active Problems Problem Noted Date Diagnosed Date Gilbert syndrome 06/27/2022 Elevated liver enzymes 03/17/2021 Cancer, metastatic to lung 11/03/2019 Nonspecific abnormal electrocardiogram (ECG) (EK G) 11/03/2019 S/p nephrectomy 09/23/2019 Primary osteoarthritis of right hip 06/02/2019 Overview (03/17/2021): Added automatically from request for surgery [id number] Personal history of malignant neoplasm of breast [...] 1 , Cycle 46 - Planned for 12/22/2024) Next Day (Day 1, Cycle 47 - Planned for 01/12/2025) bevacizumab-awwb (Mvasi) Infusion bevacizumab-awwb (Mvasi) 1,400 mg [...] Entry Manual Entr y Dose Length Product 14,795.8 mGy-cm 14,795.8 mGy-cm 0 mGy-cm
== END 2025-01-05 12:11 | disposition home or self-care (01) ==
LOC: ANHIMG 12:11
PROVIDERS: PCP Family Medicine; Visit Provider Family Medicine
DX: R92.8 Other abnormal and inconclusive findings on diagnostic imaging of breast (principal)
CPT/HCPCS: 76642; 77061; 77065; G0279

== ENCOUNTER 2025-02-02 09:22 | Outpatient (CLI) | payer OTHER, SELFPAY ==
--- NOTE | ~2025-02-02 | DEXA_ITS ---
Bone Density Report Name: SHUBHAM LOVELACE Age: 65 Sex: Female Ethnicity: White Date of : 1960 Indication: postmenopausal; screening for osteoporosis; height loss; prior fracture; cancer; Referring Provider: ARON VAIL Study: Bone densitometry was performed. Exam Date: February 02, 2025 Accession number: [id number] Bone Density: Region BMD T-score Z-score Classification AP Spine(L1-L4) 1.087 0.4 2.3 Normal World Health Organization criteria for BMD impression classify patients as: Normal (T-score at or above -1.0), Osteopenia (T-score between -1.0 and -2.5), or Osteoporosis (T-score at or below -2.5). Previous Exams: Region Exam Age BMD T-score BMD Change BMD Change Date g/cm2 vs Baseline vs Previous AP Spine (L1-L4) 02/02/2025 65 1.087 0.4 0.033 (3.1%)# 0.033 (3.1%)# 11/23/2020 60 1.054 0.1 *Denotes significance at 95% confidence level, LSC for AP Spine = 0.022 g/cm2 # Denotes dissimilar scan types or analysis methods Clinical Information Provided by Patient: Has had a low trauma fracture Has the following medical conditions: Cancer Patient maximum height was 65 Drinks caffeinated beverages Onset of menses at age 11 Number of children 1 Impression: The patient has normal bone mass. The patient has risk factors, including: previous fracture. No significant bone loss was observed. Discussion: LOW RISK OF FRACTURE; BONE DENSITY IS WELL ABOVE THE MINIMUM DESIRABLE LEVEL AND ABOVE AVERAGE FOR AGE AND SEX AT ALL SKELETAL SITES TESTED. This person's bone density is above expected limits for age and sex. This is rarely clinically significant, but should be pursued if there are significant musculoskeletal complaints. The patient should follow a healthful lifestyle (good nutrition with adequate calcium and vitamin D, and appropriate weight-bearing exercise). Follow-Up: Consider repeating this study in 5 years or sooner if there is some new clinical indication. Reported by: ZAK on 02/02/2025 9:51:00 AM. Reviewed, dictated and finalized at location [facility]
--- OUTSIDE RECORDS SUMMARY | 2025-02-02 10:20 | XMS_ITS | Clinical Summary ---
Author Organization [facility] Address [address] [place] [address] Care Team Providers Care Medical Records Clerk Name Role Phone Myriam Jorgensen MD Primary Care Provider [phone] Nakita Kelly RN Unavailable Unavailable Tito Schwartz MD Unavailable [phone] Source Comments [facility],non-owned Affiliates and Associated Physician Practices is amultiple site organization consisting of ambulatory clinics and hospital sitesin [place], [place], [place] and [place]. This disclosure is being madepursuant to the Care Everywhere program and may not contain all information available regarding this patient. Last updated 18.[facility] Allergies Active Allergy Reactions Criticality Noted Date [...] (03/17/2021): Added automatically from request for surgery [id number] Personal history of malignant neoplasm of breast 12/04/2014 Encounter for antineoplastic chemotherapy 2013 Malignant neoplasm of kidney excluding renal pel vis 09/25/2014 Primary malignant neoplasm 02/01/2014 Other pulmonary embolism without acute cor pulmo nale 06/17/2013 Encounters Date Type Department Care Team Description 01/27/2025 Telephone [facility] GI [address] [place] [phone] Lorenzo Morris, SHOSHANA Follow-up 01/13/2025 9:00 AM DOUGH RAISER Office Visit [facility] - Nephrology [address] [place] [phone] Tito Schwartz MD Proteinuria, unspecified type (Primary Dx) 01/13/2025 Travel 01/02/2025 1:15 PM DOUGH RAISER - 01/02/2025 11:59 PM DOUGH RAISER Hospital Encounter [facility] US [address] [place] [address] Tito Schwartz MD Discharge Disposition: Home or Self Care 01/02/2025 Travel 12/23/2024 9:00 AM DOUGH RAISER - 12/23/2024 11:59 PM DOUGH RAISER Hospital Encounter [facility] RAD ONC [address] [place] [address] Ronnie Mcqueen MD Discharge Disposition: Home or Self Care 12/22/2024 1:00 PM DOUGH RAISER Office Visit [facility] - Hematology/Oncology [address] [place] [phone] Wai Tse MD Metastatic renal cell carcinoma, unspecified laterality (Primary Dx) 12/22/2024 12:20 PM DOUGH RAISER - 12/22/2024 11:59 PM DOUGH RAISER Hospital Encounter [facility] INFUSION CENTER [address] [place] [phone] Wai Tse MD Discharge Disposition: Home or Self Care 12/22/2024 Travel 12/18/2024 9:00 AM DOUGH RAISER - 12/18/2024 11:59 PM DOUGH RAISER Hospital Encounter [facility] LAB OP DRAW STATION [address] [place] [address] Ronnie Mcqueen MD Discharge Disposition: Home or Self Care 12/18/2024 8:56 AM DOUGH RAISER - 12/18/2024 8:59 AM DOUGH RAISER Hospital Encounter [facility] CAT SCAN [address] [place] [address] Ronnie Mcqueen MD Discharge Disposition: Home or Self Care 12/18/2024 Travel 12/09/2024 9:30 AM DOUGH RAISER [facility] [address] [facility] [place] [address] Kelly Coates, ENGRAVED ROLLER INSPECTOR-FOREIGN POLICY OFFICER Tito Schwartz MD Proteinuria, unspecified type (Primary Dx); Metastatic renal cell carcinoma, unspecified laterality 12/09/2024 Travel 11/27/2024 Telephone [facility] - Hematology/Oncology [address] [place] [phone] Wai Tse MD Medication Prior Auth Request; Medication Management 11/27/2024 Telephone [facility] - Hematology/Oncology [address] [place] [phone] Wai Tse MD Medication Prior Auth Request 11/07/2024 Refill [facility] - Hematology/Oncology [address] [place] [phone] Wai Tse MD Refill Request 11/07/2024 Telephone [facility] - Hematology/Oncology [address] [place] [phone] Kelly Coates APRN-FOREIGN POLICY OFFICER Follow-up 11/07/2024 Orders Only [facility] - Hematology/Oncology [address] [place] [phone] Kelly Coates ENGRAVED ROLLER INSPECTOR-FOREIGN POLICY OFFICER Proteinuria, unspecified type ; Metastatic renal cell carcinoma, unspecified laterality 11/06/2024 Orders Only [facility] Physician [facility] - Hematology/Oncology [address] [place] [phone] Kelly Coates ENGRAVED ROLLER INSPECTOR-FOREIGN POLICY OFFICER Proteinuria, unspecified type from Last 3 Months Immunizations Name Administration Dates Next Due SetMeUp primary monoval ent 12+ yr 0.3mL Purple [...] Sign Reading Time Taken Comments Blood Pressure 149/87 01/13/2025 9:11 AM DOUGH RAISER Pulse 68 01/13/2025 9:11 AM DOUGH RAISER Temperature 36.8 C (98.3 F) 01/13/2025 9:11 AM DOUGH RAISER Respiratory Rate 18 12/23/2024 9:05 AM DOUGH RAISER Oxygen Saturation 98% 01/13/2025 9:11 AM DOUGH RAISER Inhaled Oxygen Concentration - - Weight 90.8 kg (200 lb 3.2 oz) 01/13/2025 9:11 A M DOUGH RAISER Height 165.1 cm (5' 5 ) 01/13/2025 9:11 AM DOUGH RAISER Body Mass Index 33.32 01/13/2025 9:11 AM DOUGH RAISER Plan of Treatment Upcoming Encounters Date Type Department Care Team (Late st Contact Info) Description 03/23/2025 1:40 PM CDT Office Visit [facility] - Hematology/Oncology [address] [place] [phone] Wai Tse MD [address] [place] [address] OF HEMATOLOGY & [place] [address] 04/02/2025 10:00 AM CDT Appointment [facility] CAT SCAN [address] [place] [phone] Ronnie Mcqueen MD [address] [place] [phone] 04/07/2025 9:30 AM CDT Appointment [facility] RAD ONC [address] [place], [place] [phone] Ronnie Mcqueen MD [facility] [place] [address] 07/14/2025 9:00 AM CDT Office Visit [facility] - Nephrology [address] [facility] [place] [phone] Tito Schwartz MD [address] [place] [address] Health Maintenance Due Date Last Done Comments [...] complete this topic MENINGOCOCCAL (Group B) VACCINE SHARED DECISION-MAKING Aged Out No longer eligible based on patient's age to complete this topic MENINGOCOCCAL GROUPS A/C/Y/W VACCINE Aged Out No longer eligible based on patient's age to complete this topic Goals Goal Patient Goal Type Associated Problems Recent Progress Patient-Stated? Author Medication Management General On track( 9:04 AM DOUGH RAISER) No Adeola Julio, RN Note: Expected end date: ongoing Interventions: Take all medications as prescribed Safety General On track( 9:04 AM DOUGH RAISER) No Nakita Kelly, RN Note: Expected end date: ongoing Interventions: Your nurse will assess your risk for falls/injury each visit Use appropriate and safe transfer methods Make sure appropriate safety devices are available and within reach Be aware of medications that could predispose you to falling Wear non-skid/rubber sole footwear Wear glasses/hearing aid Keep personal items within easy reach Keep walking paths clutter free and clear Maintain an unobstructed path to the bathroom Make and keep follow-up appointments General On track( 11:58 AM DOUGH RAISER) No Nakita Kelly, vocational placement specialist Procedure Name Priority Date/Time Associated Diagnosis Comments US RETROPERITONEAL COMPLETE Routine 01/02/2025 1:56 PM DOUGH RAISER Proteinuria, unspecified type Metastatic renal cell carcinoma, unspecified laterality URINALYSIS NO MICROSCOPIC NO CULTURE STAT 12/22/2024 1:06 PM DOUGH RAISER Malignant neoplasm of kidney excluding renal pelvis, unspecified laterality CBC W AUTO DIFFERENTIAL STAT 12/22/19 1:06 PM DOUGH RAISER Malignant neoplasm of kidney excluding renal pelvis, unspecified laterality URINALYSIS REFLEX TO MICROSCOPIC NO CULTURE Routine 12/18/2024 9:52 AM DOUGH RAISER Proteinuria, unspecified type Metastatic renal cell carcinoma, unspecified laterality PROTEIN CREATININE RATIO URINE RANDOM PNL Routine 12/18/2024 9:52 AM DOUGH RAISER Proteinuria, unspecified type Metastatic renal cell carcinoma, unspecified laterality SYPHILIS (T PALLIDUM) DONOR Routine 12/18/2024 9:51 AM DOUGH RAISER Proteinuria, unspecified type Metastatic renal cell carcinoma, unspecified laterality REF LAB-SPECIMEN STATUS REPORT Routine 12/18/2024 9:51 AM DOUGH RAISER Proteinuria, unspecified type Metastatic renal cell carcinoma, unspecified laterality IMMUNOFIXATION BLOOD Routine 12/18/2024 9:51 AM DOUGH RAISER Proteinuria, unspecified type KAPPA/LAMBDA LITE CHAIN FREE PANEL Routine 12/18/2024 9:51 AM DOUGH RAISER Proteinuria, unspecified type GLOMERULAR BASE MEMBRANE ANTIBODY IGG Routine 12/18/2024 9:51 AM DOUGH RAISER Proteinuria, unspecified type Metastatic renal cell carcinoma, unspecified laterality PHOSPHOLIPASE A2 RECEPTOR AB IGG RFLX TITER Routine 12/18/2024 9:51 AM DOUGH RAISER Proteinuria, unspecified type Metastatic renal cell carcinoma, unspecified laterality ANCA VASCULITIS PANEL Routine 12/18/2024 9:51 AM DOUGH RAISER Proteinuria, unspecified type Metastatic renal cell carcinoma, unspecified laterality CHERYL BLOOD SCREEN W/REFLEX TITER Routine 12/18/2024 9:51 AM DOUGH RAISER Proteinuria, unspecified type Metastatic renal cell carcinoma, unspecified laterality COMPLEMENT C4 Routine 12/18/2024 9:51 AM DOUGH RAISER Proteinuria, unspecified type Metastatic renal cell carcinoma, unspecified laterality COMPLEMENT C3 Routine 12/18/2024 9:51 AM DOUGH RAISER Proteinuria, unspecified type Metastatic renal cell carcinoma, unspecified laterality TREPONEMA PALLIDUM AB IGG DONOR Routine 12/18/2024 9:51 AM DOUGH RAISER Proteinuria, unspecified type Metastatic renal cell carcinoma, unspecified laterality HIV-1 HIV-2 ANTIBODY + HIV P24 AG PANEL Routine 12/18/2024 9:51 AM DOUGH RAISER Proteinuria, unspecified type Metastatic renal cell carcinoma, unspecified laterality CBC W/O DIFFERENTIAL Routine 12/18/2024 9:51 AM DOUGH RAISER Proteinuria, unspecified type Metastatic renal cell carcinoma, unspecified laterality RENAL FUNCTION PANEL Routine 12/18/2024 9:51 AM DOUGH RAISER Proteinuria, unspecified type Metastatic renal cell carcinoma, unspecified laterality DNA ANTIBODY DOUBLE STRANDED Routine 12/18/2024 9:51 AM DOUGH RAISER Proteinuria, unspecified type Metastatic renal cell carcinoma, unspecified laterality CT CHEST ABDOMEN PELVIS W CONT Routine 12/18/2024 9:15 AM DOUGH RAISER 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 CREATININE - POCT INTERFACED Routine 12/18/2024 9:02 AM DOUGH RAISER URINALYSIS REFLEX TO MICROSCOPIC NO CULTURE Routine 11/06/2024 11:56 AM DOUGH RAISER Proteinuria, unspecified type LAB RESULTS ORDER 11/06/2024 HEPATITIS C RNA QUANTITATIVE Routine 03/17/2021 10:19 AM CDT Elevated liver enzymes from Last 3 Months or Most Recently Relevant to Health Maintenance Results * US Retroperitoneal Complete (01/02/2025 1:56 PM DOUGH RAISER) Anatomical Region Laterality Modality Abdomen Ultrasound 01/02/2025 3:48 PM DOUGH RAISER Impressions 01/02/2025 4:32 PM DOUGH RAISER IMPRESSION: Mild left calyectasis. Right kidney surgically absent. No renal calculus or solid renal mass in the left kidney > Dictated by Dimitris Sewell MD, (cardiac cath lab radiology technologist). I, Devan Acevedo MD have personally reviewed and interpreted this examination/study. > Interpreting Provider: Devan Acevedo MD on 01/02/2025 4:32 PM Narrative 01/02/2025 4:32 PM DOUGH RAISER PROCEDURE: US RETROPERITONEAL COMPLETE, DATE/TIME OF EXAM: 01/02/2025 1:56 PM, LOCATION [facility] INDICATION: R80.9: Proteinuria, unspecified type C64.9: [...] PROCEDURE: US RETROPERITONEAL COMPLETE, DATE/TIME OF EXAM: :56 PM, LOCATION [facility] INDICATION: R80.9: Proteinuria, unspecified type C64.9: [...] kidney > Dictated by Dimitris Sewell MD, (cardiac cath lab radiology technologist). I, Devan Acevedo MD have personally reviewed and interpreted this examination/study. > Interpreting Provider: Devan Acevedo MD on 01/02/2025 4:32 PM Tito Schwartz MD US ORDERABLES * (ABNORMAL) URINALYSIS NO MICROSCOPIC NO CULTURE (12/22/2024 1:06 PM DOUGH RAISER) Color UA Straw Straw, Yellow 12/22/2024 1:54 PM DOUGH RAISER [facility] Clarity UA Clear Clear 12/22/2024 1:54 PM DOUGH RAISER [facility] Specific [place] UA 1.002(L) 1.005 - 1.030 12/22/2024 1:54 PM DOUGH RAISER [facility] pH UA 6.0 5.0 - 8.0 pH 12/22/2024 1:54 PM DOUGH RAISER [facility] Protein UA 2+(A) Negative 12/22/2024 1:54 PM [facility] Glucose UA 3+(A) Negative 12/22/2024 1:54 PM [facility] Ketone UA Negative Negative 12/22/2024 1:54 PM [facility] Bilirubin UA Negative Negative 12/22/2024 1:54 PM [facility] Blood UA Negative Negative 12/22/2024 1:54 PM [facility] Nitrite UA Negative Negative 12/22/2024 1:54 PM [facility] Leukocyte Esterase Negative Negative 12/22/2024 1:54 PM [facility] Urobilinogen UA Negative Negative mg/dL 12/22/2024 1:54 PM [facility] Urine URINE SPECIMEN OBTAINED BY CLEAN CATCH PROCEDURE / Unknown Collection / Unknown 12/22/2024 1:06 PM DOUGH RAISER 12/22/2024 1:39 PM [facility] - 12/22/2024 1:54 PM DOUGH RAISER Wai Tse MD LAB - URINALYSIS ORD ERABLES [facility] [address] [place] [phone] [phone] * (ABNORMAL) CBC W AUTO DIFFERENTIAL (12/22/2024 1:06 PM DOUGH RAISER) WBC 6.5 4.0 - 10.7 x10E9/L 12/22/2024 2:15 PM [facility] RBC Count 4.80 3.90 - 5.20 x10E12/L 12/22/2024 2:15 PM [facility] Hemoglobin 15.9(H) 11.9 - 15.8 g/dL 12/22/2024 2:15 PM [facility] Hematocrit 45.6 34.8 - 46.1 % 12/22/2024 2:15 PM [facility] MCV 95.0 80.0 - 98.0 fL 12/22/2024 2:15 PM [facility] MCH 33.1 26.7 - 33.6 pg 12/22/2024 2:15 PM [facility] MCHC 34.9 31.7 - 36.3 g/dL 12/22/2024 2:15 PM [facility] RDW-CV 13.3 11.3 - 14.8 % 12/22/2024 2:15 PM [facility] Platelet Count 274 150 - 420 x10E9/L 12/22/2024 2:15 PM [facility] MPV 10.2 7.8 - 11.4 fL 12/22/2024 2:15 PM [facility] Preliminary Absolute Neutrophil 4.40 1.60 - 7.50 x10E9/L 12/22/2024 2:15 PM [facility] Neutrophil % 68.0 41.0 - 74.0 % 12/22/2024 2:15 PM [facility] Lymphocyte % 21.0 17.0 - 47.0 % 12/22/2024 2:15 PM [facility] Monocyte % 7.4 3.0 - 11.0 % 12/22/2024 2:15 PM [facility] Eosinophil % 2.8 0.0 - 7.0 % 12/22/2024 2:15 PM [facility] Basophil % 0.5 0.0 - 1.6 % 12/22/2024 2:15 PM [facility] Immature Granulocytes % 0.3 0.0 - 1.0 % 12/22/2024 2:15 PM [facility] Neutrophil Absolute 4.40 1.60 - 7.50 x10E9/L 12/22/2024 2:15 PM [facility] Lymphocyte Absolute 1.36 1.00 - 4.40 x10E9/L 12/22/2024 2:15 PM [facility] Monocyte Absolute 0.48 0.15 - 1.00 x10E9/L 12/22/2024 2:15 PM [facility] Eosinophil Absolute 0.18 0.00 - 0.60 x10E9/L 12/22/2024 2:15 PM [facility] Basophil Absolute 0.03 0.00 - 0.13 x10E9/L 12/22/2024 2:15 PM [facility] Blood BLOOD SPECIMEN / Unknown Venipuncture / Unknown 12/22/2024 1:06 PM D[facility] RAISER 12/22/2024 2:09 PM DOUGH RAISER Wai Tse MD LAB - HEMATOLOGY ORD ERABLES [facility] [address] [place] [address], [facility] [phone] * (ABNORMAL) URINALYSIS REFLEX TO MICROSCOPIC NO CULTURE (12/18/2024 9:52 AM DOUGH RAISER) Only the most recent of2 resultswithin the time period is included. Color UA Yellow Straw, Yellow 12/18/2024 10:37 AM [facility] Clarity UA Clear Clear 12/18/2024 10:37 AM [facility] Specific [place] UA 1.003(L) 1.005 - 1.030 12/18/2024 10:37 AM [facility] pH UA 6.0 5.0 - 8.0 pH 12/18/2024 10:37 AM [facility] Protein UA 2+(A) Negative 12/18/2024 10:37 AM [facility] Glucose UA 3+(A) Negative 12/18/2024 10:37 AM [facility] Ketone UA Negative Negative 12/18/2024 10:37 AM [facility] Bilirubin UA Negative Negative 12/18/2024 10:37 AM [facility] Blood UA Negative Negative 12/18/2024 10:37 AM [facility] Nitrite UA Negative Negative 12/18/2024 10:37 AM [facility] Leukocyte Esterase Negative Negative 12/18/2024 10:37 AM [facility] Urobilinogen UA Negative Negative mg/dL 12/18/2024 10:37 AM [facility] RBC UA 3-5 None Seen, 0-2, 3-5 /HPF 12/18/2024 10:37 AM [facility] WBC UA 0-5 None Seen, 0-5 /HPF 12/18/2024 10:37 AM [facility] Bacteria UA Trace(A) None /HPF 12/18/2024 10:37 AM [facility] Squamous Epithelial Cells UA 0-2 None Seen, 0-2, 3-5 /HPF 12/18/2024 10:37 AM DOUGH RAISER [facility] Mucus UA 1+ /LPF 12/18/2024 10:37 AM [facility] Urine URINE SPECIMEN OBTAINED BY CLEAN CATCH PROCEDURE / Unknown Collection / Unknown 12/18/2024 9:52 AM DOUGH RAISER 12/18/2024 10:15 AM DOUGH RAISER Narrative [facility] - 12/18/2024 10:37 AM DOUGH RAISER Tito Schwartz MD LAB - URINALYSIS ORD ERABLES Performing Organization Address City/[facility]/ZIP Co de Phone Number [facility] [address] [place] [address], [facility] [phone] * (ABNORMAL) PROTEIN CREATININE RATIO URINE RANDOM PNL (12/18/2024 9:52 AM DOUGH RAISER) Protein Urine 102 Not Established mg/dL 12/18/2024 11:08 AM [facility] Creatinine Urine 33.98 Not Established mg/dL 12/18/2024 11:08 AM [facility] Protein/Creati nine Ratio Urine 3.00(H) <0.10 12/18/2024 11:08 AM [facility] Urine URINE SPECIMEN OBTAINED BY CLEAN CATCH PROCEDURE / Unknown Collection / Unknown 12/18/2024 9:52 AM DOUGH RAISER 12/18/2024 10:15 AM DOUGH RAISER Tito Schwartz MD LAB - URINE CHEMISTR Y ORDERABLES Performing Organization Address City/[facility]/ZIP Co de Phone Number [facility] [address] [place] [address], [facility] [phone] * TREPONEMA PALLIDUM AB IGG DONOR (12/18/2024 9:51 AM DOUGH RAISER) Donor Syphilis (T pallidum) see scanned report 01/15/2025 8:01 AM DOUGH RAISER [facility] ([facility]) Blood BLOOD SPECIMEN / Unknown Lab Venipuncture / Unknown 12/18/2024 9:51 AM DOUGH RAISER 12/18/2024 10:16 AM DOUGH RAISER Tito Schwartz MD LAB - SEROLOGY ORDER [facility] ([facility]) [address] * SYPHILIS (T PALLIDUM) DONOR (12/18/2024 9:51 AM DOUGH RAISER) Donor Syphilis (T pallidum) Non Reactive Non Reactive 12/27/2024 7:08 PM DOUGH RAISER [facility] ([facility]) Comment: Test performed with [employer]IA Syphilis (T pallidum)-G kit. Blood BLOOD SPECIMEN / Unknown Lab Venipuncture / Unknown 12/18/2024 9:51 AM DOUGH RAISER 12/18/2024 10:16 AM DOUGH RAISER Narrative [facility] ([facility]) - 12/27/2024 7:08 PM DOUGH RAISER Performed at: [facility] [employer] [address] [id number] Inspector Firearms: Jon Pinedo [facility], Phone: [phone] Tito Schwartz MD LAB - CHEMISTRY HELENA LANDA Performing Organization Address City/[facility]/ZIP Co de Phone Number [facility] [address] * PHOSPHOLIPASE A2 RECEPTOR AB IGG RFLX TITER (12/18/2024 9:51 AM DOUGH RAISER) Pathologist [facility] Phospholipase A2 Receptor IgG <1:10 <1:10 12/20/2024 4:22 PM DOUGH RAISER [facility] ([facility]) Comment: Phospholipase A2 Receptor Antibody, IgG is not detected. No further testing will be performed. Performed By: [facility] [address] [place] [id number] Senior Internet Sales Consultant: Tucker Hernandez MD, PhD CLIA Number: [id number] Blood BLOOD SPECIMEN / Unknown Lab Venipuncture / Unknown 12/18/2024 9:51 AM DOUGH RAISER 12/18/2024 10:16 AM DOUGH RAISER Tito Schwartz MD LAB - CHEMISTRY HELENA LANDA [facility] ([facility]) [address] [place] [address], [facility] * HIV-1 HIV-2 ANTIBODY + HIV P24 AG PANEL (12/18/2024 9:51 AM DOUGH RAISER) [facility] HIV Antigen/Antibod y 1 & 2 Non-reacti ve Non-react nafisa 12/18/2024 11:31 AM DOUGH RAISER [facility] Comment:No Laboratory eviden ce of HIV infection. Blood BLOOD SPECIMEN / Unknown Lab Venipuncture / Unknown 12/18/2024 9:51 AM DOUGH RAISER 12/18/2024 10:16 AM DOUGH RAISER Tito Schwartz MD LAB - CHEMISTRY HELENA LANDA [facility] [address] [address], [facility] [phone] * REF LAB-SPECIMEN STATUS REPORT (12/18/2024 9:51 AM DOUGH RAISER) [facility] Specimen Status Report Comment 12/22/2024 5:07 PM DOUGH RAISER [facility] ([facility]) Comment: Written Authorization Written Authorization Written Authorization Received. Authorization received from [employer] 12-22-2024 Logged by Faye Villafana Blood BLOOD SPECIMEN / Unknown Lab Venipuncture / Unknown 12/18/2024 9:51 AM DOUGH RAISER 12/18/2024 10:16 AM DOUGH RAISER Narrative [facility] ([facility]) - 12/22/2024 5:07 PM DOUGH RAISER Performed at: 01 - [facility] [place] [address] [place], [place] [id number] Inspector Firearms: Alejandro Doshi PhD, Phone: [phone] Tito Schwartz MD LAB - CHEMISTRY HELENA LANDA [facility] ([facility]) [address] [place] [address], [facility] * IMMUNOFIXATION BLOOD (12/18/2024 9:51 AM DOUGH RAISER) [facility] Immunofixation Serum Normal Pattern Normal Pattern 12/19/2024 3:30 PM DOUGH RAISER [facility] Comment: No monoclonal immunoglobulin detected by serum immunosubtraction. Margie Rinaldi PhD, [facility] Clinical Supervisor [employer] residential property consultant *The electrophoresis pattern and the interpretation have been reviewed and verified by the teaching physician. Blood BLOOD SPECIMEN / Unknown Lab Venipuncture / Unknown 12/18/2024 9:51 AM DOUGH RAISER 12/18/2024 10:16 AM DOUGH RAISER Tito Schwartz MD LAB - CHEMISTRY HELENA LANDA [facility] Organization Address City/State/ZIP Co de Phone Number [address] [address], [facility] [phone] * ANCA VASCULITIS PANEL (12/18/2024 9:51 AM DOUGH RAISER) [facility] Myeloperoxidase Antibody 0 0 - 19 AU/mL 12/21/2024 12:18 PM [facility] ([facility]) Comment: INTERPRETIVE INFORMATION: Myeloperoxidase Abs, IgG 19 AU/mL or Less ......... Negative 20-25 AU/mL .............. Equivocal 26 AU/mL or Greater ...... Positive Approximately 90% of patients with a P-ANCA pattern by IFA have antibodies specific for MPO. Serine Proteinase 3 IgG 3 0 - 19 AU/mL 12/21/2024 12:18 PM [facility] ([facility]) Comment: INTERPRETIVE INFORMATION: Serine Proteinase 3, IgG 19 AU/mL or Less ........ Negative 20-25 AU/mL ............. Equivocal 26 AU/mL or Greater ..... Positive Approximately 85% of patients with a C-ANCA pattern by IFA have antibodies specific for PR3. ANCA Titer IFA <1:20 <1:20 12/21/2024 12:18 PM DOUGH RAISER [facility] ([facility]) ANCA Pattern IFA None Detected None Detected 12/21/2024 12:18 PM [facility] ([facility]) Comment: INTERPRETIVE INFORMATION: ANCA IFA Pattern Neutrophil Cytoplasmic Antibodies (C-ANCA = granular cytoplasmic staining, P-ANCA = perinuclear staining) are found in the serum of over 90 percent of patients with certain necrotizing systemic vasculitides, and usually in less than 5 percent of patients with collagen vascular disease or arthritis. Performed By: [facility] [address] [place] [address] Senior Internet Sales Consultant: Tucker Hernandez MD, PhD CLIA Number: [id number] Blood BLOOD SPECIMEN / Unknown Lab Venipuncture / Unknown 12/18/2024 9:51 AM DOUGH RAISER 12/18/2024 10:55 AM DOUGH RAISER Tito Schwartz MD LAB - CHEMISTRY [facility]) [address] [place] [address], [facility] * CHERYL BLOOD SCREEN W/REFLEX TITER (12/18/2024 9:51 AM DOUGH RAISER) CHERYL IgG None Detected None Detected 12/20/2024 5:47 AM DOUGH RAISER [email or web address] ([facility]) Comment: If suspicion of connective tissue disease is strong and CHERYL EIA is negative, consider testing for CHERYL by IFA ([id number]). INTERPRETIVE INFORMATION: Anti-Nuclear Antibodies (CHERYL), IgG by ERNESTO Antinuclear Antibodies (CHERYL), IgG by ERNESTO: CHERYL specimens are screened using enzyme-linked immunosorbent assay (ERNESTO) methodology. All ERNESTO results reported as Detected are further tested by indirect fluorescent assay (IFA) using HEp-2 substrate with an IgG-specific conjugate. The CHERYL ERNESTO screen is designed to detect antibodies against dsDNA, histones, SS-A (Ro), SS-B (La), Richey, Richey/HUMAN SERVICE TECHNICIAN, Scl-70, More-1, centromeric proteins, other antigens extracted from the HEp-2 cell nucleus. CHERYL ERNESTO assays have been reported to have lower sensitivities than CHERYL IFA for systemic autoimmune rheumatic diseases (SARD). Negative results do not necessarily rule out SARD. Performed By: [facility] [address] [place] [address] Senior Internet Sales Consultant: Tucker Hernandez MD, PhD CLIA Number: [id number] Blood BLOOD SPECIMEN / Unknown Lab Venipuncture / Unknown 12/18/2024 9:51 AM DOUGH RAISER 12/18/2024 10:16 AM DOUGH RAISER Tito Schwartz MD LAB - CHEMISTRY HELENA LANDA Performing Organization Address [facility] de Phone Number [facility] Elevation Lab [facility]) [address] * GLOMERULAR BASE MEMBRANE ANTIBODY IGG (12/18/2024 9:51 AM DOUGH RAISER) GBM Antibody IgG (EU) 0 0 - 19 AU/mL 12/21/2024 12:22 PM DOUGH RAISER [email or web address] ([facility]) Comment: INTERPRETIVE INFORMATION: GBM Ab, IgG by [...] and assessment of renal prognosis. Performed By: [facility] [address] [place] [address] Senior Internet Sales Consultant: Tucker Hernandez MD, PhD CLIA Number: [id number] Blood BLOOD SPECIMEN / Unknown Lab Venipuncture / Unknown 12/18/2024 9:51 AM DOUGH RAISER 12/18/2024 10:16 AM DOUGH RAISER Tito Schwartz MD LAB - CHEMISTRY HELENA LANDA Performing Organization Address [facility] Co de Phone Number [facility] ([facility]) [address] * DNA ANTIBODY DOUBLE STRANDED (12/18/2024 9:51 AM DOUGH RAISER) dsDNA Antibody 10 0 - 24 IU 12/20/2024 12:22 AM DOUGH RAISER [email or web address] ([facility]) Comment: INTERPRETIVE INFORMATION: Double-Stranded DNA (dsDNA) Ab IgG ERNESTO 24 IU or less........Negative 25-30 IU.............Borderline Positive 30-60 IU.............Low Positive 60-200 IU............Positive 201 IU or greater....Strong Positive Positivity for anti-double stranded DNA (anti-dsDNA) IgG antibody is a diagnostic criterion of systemic lupus erythematosus (SLE). Specimens are initially screened by enzyme-linked immunosorbent assay (ERNESTO). If ordered as reflex ([id number]), positive ERNESTO results (>24 IU) will be [...] recommendations for testing may be found at [email or web address]. Performed by [facility], [address] [place] [address] [email or web address], Balaji Torres MD, Lab. Director [facility] Number: [id number] Blood BLOOD SPECIMEN / Unknown Lab Venipuncture / Unknown 12/18/2024 9:51 AM DOUGH RAISER 12/18/2024 10:16 AM DOUGH RAISER Tito Schwartz MD LAB - HEMATOLOGY ORD ERABLES [facility]) [address] * (ABNORMAL) KAPPA/LAMBDA LITE CHAIN FREE PANEL (12/18/2024 9:51 AM DOUGH RAISER) [facility] [place] Quant Free Light Chain 20.59(H) 3.30 - 19.40 mg/L 12/20/2024 5:06 AM DOUGH RAISER [facility] ([facility]) Comment: INTERPRETIVE INFORMATION: [place] Qnt Free Light Chains Undetected antigen excess is a rare event but cannot be excluded. Free light chain results should always be interpreted in conjunction with other clinical and laboratory findings. Lambda Free Light Chain Quantitative 16.76 5.71 - 26.30 mg/L 12/20/2024 5:[address] [facility]) Comment: INTERPRETIVE INFORMATION: Lambda Qnt Free Light Chains Undetected antigen excess is a rare event but cannot be excluded. Free light chain results should always be interpreted in conjunction with other clinical and laboratory findings. [place]/Lambda Free Light Chain ratio 1.23 0.26 - 1.65 12/20/2024 5:06 AM [facility] ([facility]) Comment: Performed By: [facility] [address] [place] [address] Senior Internet Sales Consultant: Tucker Hernandez MD, PhD CLIA Number: [id number] Blood BLOOD SPECIMEN / Unknown Lab Venipuncture / Unknown 12/18/2024 9:51 AM DOUGH RAISER 12/18/2024 10:16 AM DOUGH RAISER Tito Schwartz MD LAB - CHEMISTRY ORDE [facility] Organization Address City/State/ZIP Co de Phone Number [facility]) [address] [place] [address] * CBC W/O DIFFERENTIAL (12/18/2024 9:51 AM [facility]) WBC 4.8 4.0 - 10.7 x10E9/L 12/18/2024 10:45 AM [facility] RBC Count 4.80 3.90 - 5.20 x10E12/L 12/18/2024 10:45 AM [facility] Hemoglobin 15.6 11.9 - 15.8 g/dL 12/18/2024 10:45 AM [facility] Hematocrit 45.8 34.8 - 46.1 % 12/18/2024 10:45 AM [facility] MCV 95.4 80.0 - 98.0 fL 12/18/2024 10:45 AM [facility] MCH 32.5 26.7 - 33.6 pg 12/18/2024 10:45 AM [facility] MCHC 34.1 31.7 - 36.3 g/dL 12/18/2024 10:45 AM [facility] RDW-CV 13.4 11.3 - 14.8 % 12/18/2024 10:45 AM [facility] Platelet Count 225 150 - 420 x10E9/L 12/18/2024 10:45 AM [facility] MPV 9.9 7.8 - 11.4 fL 12/18/2024 10:45 AM [facility] Blood BLOOD SPECIMEN / Unknown Lab Venipuncture / Unknown 12/18/2024 9:51 AM DOUGH RAISER 12/18/2024 10:35 AM DOUGH RAISER Tito Schwartz MD LAB - HEMATOLOGY ORD ERABLES [address] [address], [facility] [phone] * COMPLEMENT C4 (12/18/2024 9:51 AM DOUGH RAISER) Complement C4 43 15 - 57 mg/dL 12/18/2024 11:09 AM [facility] Blood BLOOD SPECIMEN / Unknown Lab Venipuncture / Unknown 12/18/2024 9:51 AM DOUGH RAISER 12/18/2024 10:34 AM DOUGH RAISER Tito Schwartz MD LAB - SEROLOGY ORDER HARJINDER [address] [address], [facility] [phone] * (ABNORMAL) RENAL FUNCTION PANEL (12/18/2024 9:51 AM DOUGH RAISER) BUN 11 7 - 26 mg/dL 12/18/2024 11:09 AM [facility] Creatinine 0.93 0.56 - 0.96 mg/dL 12/18/2024 11:09 AM [facility] Sodium 138 136 - 145 mmol/L 12/18/2024 11:09 AM [facility] Potassium 3.6 3.5 - 4.5 mmol/L 12/18/2024 11:09 AM [facility] Chloride 103 98 - 107 mmol/L 12/18/2024 11:09 AM [facility] CO2 23 22 - 29 mmol/L 12/18/2024 11:09 AM [facility] Glucose 85 70 - 99 mg/dL 12/18/2024 11:09 AM [facility] Albumin 4.3 3.4 - 5.0 g/dL 12/18/2024 11:09 AM [facility] Calcium 10.4(H) 8.4 - 10.2 mg/dL 12/18/2024 11:09 AM [facility] Phosphorus 3.3 2.9 - 5.1 mg/dL 12/18/2024 11:09 AM [facility] Anion Gap 12 6 - 16 12/18/2024 11:09 AM [facility] BUN/Creatinine Ratio 12 7 - 23 12/18/2024 11:09 AM [facility] Osmolality Calculated 285 275 - 295 mOsm/kg 12/18/2024 11:09 AM [facility] eGFR by CKD-EPI 68(L) >=90 mL/min/1.7 3 m2 12/18/2024 11:09 AM [facility] Blood BLOOD SPECIMEN / Unknown Lab Venipuncture / Unknown 12/18/2024 9:51 AM DOUGH RAISER 12/18/2024 10:34 AM DOUGH RAISER Tito Schwartz MD LAB - CHEMISTRY ORDDanielle LANDA [address] [address], [facility] [phone] * COMPLEMENT C3 (12/18/2024 9:51 AM DOUGH RAISER) Complement C3 161 82 - 193 mg/dL 12/18/2024 11:09 AM [facility] Blood BLOOD SPECIMEN / Unknown Lab Venipuncture / Unknown 12/18/2024 9:51 AM DOUGH RAISER 12/18/2024 10:34 AM DOUGH RAISER Tito Schwartz MD LAB - CHEMISTRY HELENA LANDA [address] [address] [phone] * CT Chest Abdomen Pelvis W Cont (12/18/2024 9:15 AM DOUGH RAISER) Anatomical Region Laterality Modality Chest, Abdomen, Pelvis Computed Tomography 12/18/2024 9:27 AM DOUGH RAISER Impressions 12/18/2024 10:32 AM DOUGH RAISER Impression: 1.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 2.No evidence of metastatic disease within the chest, abdomen, or pelvis. > Dictated by Florentino Duncan MD, (cardiac cath lab radiology technologist). I, Maribel Reyes MD have personally reviewed and interpreted this examination/study. > Interpreting Provider: Maribel Reyes MD on 12/18/2024 10:32 AM Narrative 12/18/2024 10:32 AM DOUGH RAISER PROCEDURE: CT CHEST ABDOMEN PELVIS W CONT, DATE/TIME OF EXAM: 12/18/2024 9:16 AM, LOCATION [facility] INDICATION: C78.02: Malignant neoplasm metastatic to [...] DATE/TIME OF EXAM: 12/18/2024 9:16 AM, LOCATION [facility] INDICATION: C78.02: Malignant neoplasm metastatic to [...] orpelvis. > Dictated by Florentino Duncan MD, (cardiac cath lab radiology technologist). I, Maribel Reyes MD have personally reviewed and interpreted this examination/study. > Interpreting Provider: Maribel Reyes MD on 510:32 AM [address]nie Mcqueen MD [address] ORDERABLES * (ABNORMAL) CREATININE - POCT INTERFACED (12/18/2024 9:02 AM DOUGH RAISER) Creatinine POCT 0.75 0.30 - 1.30 mg/dL 12/18/2024 9:08 AM DOUGH RAISER [facility] eGFR 88(L) >=90 mL/min/1.7 3 m2 12/18/2024 9:08 AM DOUGH RAISER [facility] Blood BLOOD SPECIMEN / Unknown 12/18/2024 9:02 AM DOUGH RAISER 12/18/2024 9:08 AM DOUGH RAISER Ronnie Mcqueen MD LAB - POINT OF CARE ORDERABLES [facility] [address] [place] [address], [facility] [phone] * LAB RESULTS ORDER (11/06/2024) 11/06/2024 Narrative 11/06/2024 Ordered by an unspecified provider. Scanned Document LAB - THERAPEUTIC DR BATRES MONITORING ORDERABLES * HEPATITIS C RNA QUANTITATIVE (03/17/2021 10:19 AM CDT) Hepatitis C RNA PCR, Interp Not detected Not detected 03/21/2021 3:48 PM CDT [facility] Blood BLOOD SPECIMEN / Unknown Lab Venipuncture / Unknown 03/17/2021 10:19 AM CDT 03/17/2021 10:35 AM CDT Narrative [facility] - 03/21/2021 3:48 PM CDT The Hepatitis C viral (HCV) RNA analysis utilized a serum sample, real-time reverse cutting and creasing press operator PCR, and is reported as Not [...] the isolation of HCV RNA with reverse cutting and creasing press operator of genomic HCV RNA followed by real-time PCR in the presence of an unrelated RNA internal control. The internal control ensures that RNA is isolated, and that no general significant inhibitors of the RT-PCR process are present. The analysis was performed using a U.S. FDA approved test methodology (INPHI Real Time HCV). Jessica Padron ENGRAVED ROLLER INSPECTOR-FOREIGN POLICY OFFICER LAB - CHEMIS TRY ORDERABLES [facility] [address] [place] [address], [place] [phone] from Last 3 Months or Most Recently Relevant to Health Maintenance Advance Directives * Full Code (Latest Code Status on File) Date Activated Date Inactivated Comments 01/01/2020 1:07 PM 01/02/2020 11:33 AM Care Teams Medical Records Clerk Relationship Specialty Start Date End Date Myriam Jorgensen MD [address] [place] [address] PCP - General 10/16/22 Nakita Kelly, RN Registered Nurse Hepatology 01/13/25 Tito Schwartz MD [address] OF [facility] [place], [place] Nephrology 01/13/25
--- OUTSIDE RECORDS SUMMARY | 2025-02-02 10:20 | XMS_ITS ---
Author Organization [facility] Address [address] [facility] [place] [address] Care Team Providers Care Psychologist Clinical Name Role Phone Myriam Jorgensen MD Primary Care Provider [phone] Nakita Kelly RN Unavailable Unavailable Tito Schwartz MD Unavailable [phone] Active Problems Problem Noted Date Diagnosed Date Gilbert syndrome 06/27/2022 Elevated liver enzymes 03/17/2021 Cancer, metastatic to lung 11/03/2019 Nonspecific abnormal electrocardiogram (ECG) (EK G) 11/03/2019 S/p nephrectomy 09/23/2019 Primary osteoarthritis of right hip 06/02/2019 Overview (03/17/2021): Added automatically from request for surgery [id number] Personal history of malignant neoplasm of breast [...]
--- OUTSIDE RECORDS SUMMARY | 2025-02-02 10:20 | XMS_ITS | Referral Summary ---
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 Active amLODIPine (NORVASC) 10 mg tablet TK 1 T PO QD 0 Active Active Problems Problem Noted Date Diagnosed Date S/p nephrectomy 09/23/2019 Primary osteoarthritis of right hip 06/02/2019 Overview (06/02/2019): Added automatically from request for surgery [id number] Primary malignant neoplasm 02/01/2014 Other pulmonary embolism [...] on file Legal Sex Female 11:13 AM MARKET RESEARCHER Gender Identity Not on file Sexual Orientation Not on file Last Filed Vital Signs Vital Sign Reading Time Taken Comments Blood Pressure 127/58 09/24/2019 2:58 PM MARKET RESEARCHER Pulse 74 09/24/2019 2:58 PM MARKET RESEARCHER Temperature 36.8 C (98.2 F) 09/24/2019 11:27 AM MARKET RESEARCHER Respiratory Rate 18 09/24/2019 11:27 AM MARKET RESEARCHER Oxygen Saturation 96% 09/24/2019 2:58 PM MARKET RESEARCHER Inhaled Oxygen Concentration - - Weight 86.3 kg (190 lb 3.2 oz) 10/19/2020 9:55 A M MARKET RESEARCHER Height 161.3 cm (5' 3.5 ) 10/19/2020 9:55 AM MARKET RESEARCHER Body Mass Index 33.16 10/19/2020 9:55 AM MARKET RESEARCHER Plan of Treatment Not on file Medical Devices Implanted Type Area Transport Company Manager Device Identifier Shelf Expiration Date Model / Serial / Lot [employer] [id number] Screw Bone Trident Ii L25mm Od6.5mm Low Profile Hexagonal Sterile - S0 - [id number] Implanted:Qty: 1 on 09/23/2019 by Heber Whittaker MD at [facility] Screw Right: Hip [employer] [id number] 05/05/2024 [id number] / 0 / [id number] Description: Hip Left: Hip [employer] 6212-2129 Screw Bone Trident Ii L30mm Od6.5mm Low Profile Hexagonal Sterile - S0 - [id number] Implanted:Qty: 1 on 09/23/2019 by Heber Whittaker MD at [facility] Right: Hip [employer] [id number] 05/27/2024 3938-7361 / 0 / [id number] Description: [employer] 702-04-58f Shell Acetabular Trident Ii Tritanium F Od58mm Hip 5 Screw Hole Cluster Sterile - S0 - [id number] Implanted:Qty: 1 on 09/23/2019 by Heber Whittaker MD at [facility] Right: Hip [employer] [id number] 04/14/2024 702-04-58F / 0 / [id number] Description: [employer] 623-00-36f 36mm 7.9mm Hip 0d F Liner Acetabular X3 - S0 - [id number] Implanted:Qty: 1 on 09/23/2019 by Heber Whittaker MD at [facility] Right: Hip [employer] [id number] 06/14/2024 623-00-36F / 0 / [id number] Description: [employer] [id number] Accolade 102mm 30mm Modular Hip 127d 3 Taper Stem Femoral Sterile - S0 - [id number] Implanted:Qty: 1 on 09/23/2019 by Heber Whittaker MD at [facility] Right: Hip [employer] [id number] / 0 / [id number] Description: [employer] 6570-0-236 V40 36mm Anatomic Hip +5mm Offset Taper Head Femoral Biol[employer] Delta - [id number] Implanted:Qty: 1 on 09/23/2019 by Heber Whittaker MD at [facility] Right: Hip [employer] [id number] 07/29/2024 6570-0-236 / / [id number] Description:kf Insurance [facility] CHOICE [facility]US [facility] HMO/PPO Address: [facility] [id number] [place], [place] [id number] [facility] CHOICE PLUS [facility] HMO/PPO Address: [place] [address] Advance Directives For more information, please contact: [phone] * Full Code (Latest Code Status on File) Date Activated Date Inactivated Comments 09/23/2019 4:16 PM 09/24/2019 10:29 PM Care Teams Gas Appliance Repairer Relationship Specialty Start Date End Date Marycarmen Ruiz MD PCP - General Family Practice 04/28/19
--- OUTSIDE RECORDS SUMMARY | 2025-02-02 10:20 | XMS_ITS | Encounter Summary ---
Author Organization [facility] Address [address] [facility] [place] [address] Care Team Providers Care Mid Teacher Name Role Phone Marycarmen Pascal MD Primary Care Provider + Myriam Jorgensen MD Primary Care Provider + Marycarmen Pascal MD Primary Care Provider + Myriam Jorgensen MD Primary Care Provider + Marycarmen Pascal MD Primary Care Provider + Myriam Jorgensen MD Primary Care Provider + Allyson Snowden Primary Care Provider + Myriam Jorgensen MD Primary Care Provider + Nakita Kelly RN Unavailable Unavailable Tito Schwartz MD Unavailable [phone] Encounter Details Date Type Department Care Team (Late st Contact Info) Description 01/06/2020 Lab Requisition [facility] Pathology Lab [address] [place] [address] Johnie Mendiola MD [address] [place] [address] Social History Tobacco Use Types Packs/Day Years [...] Description 03/23/2025 1:40 PM CDT Office Visit [facility] - Hematology/Oncology [address] [place] [phone] Wai Tse MD [address] [place] [address] OF HEMATOLOGY & [place] [address] 04/02/2025 10:00 AM CDT Appointment [facility] CAT SCAN [address] [place] [address] Ronnie Mcqueen MD [address] [place] [address] 04/07/2025 9:30 AM CDT Appointment [facility] RAD ONC [address] [place] [address] Ronnie Mcqueen MD [address] [place] [address] 07/14/2025 9:00 AM CDT Office Visit [facility] - Nephrology [address] [facility] [place] [address] Tito Schwartz MD [address] [place] [address] documented as of this encounter Procedures Procedure Name Priority Date/Time Associated Diagnosis Comments SLIDE PREP HISTOLOGY Routine 01/01/2020 8:42 AM TEACHER SPECIALIST documented in this encounter Results * SLIDE PREP HISTOLOGY (01/01/2020 8:42 AM TEACHER SPECIALIST) Client Specimen ID # [id number] 01/07/2020 6:02 PM TEACHER SPECIALIST [facility] LAB Number of Blocks Received 0 01/07/2020 6:02 PM TEACHER SPECIALIST [facility] Number of Slides 1 01/07/2020 6:02 PM TEACHER SPECIALIST [facility] Number of Control Slides 1 01/07/2020 6:02 PM TEACHER SPECIALIST [facility] Pathology/Cytolo gy BIOPSY OF LUNG / Unknown 01/01/2020 8:42 AM TEACHER SPECIALIST 01/06/2020 3:30 PM TEACHER SPECIALIST Johnie Baum MD LAB - PATHOLOGY/CYTO LOGY ORDERABLES [facility] [address] [facility]. [address] [phone] documented in this encounter Visit Diagnoses Not on filedocumented in this encounter Care Teams Mid Teacher Relationship Specialty Start Date End Date Marycarmen Pascal MD PCP - General 03/27/19 06/21/21 Myriam Jorgensen MD [address] [place] [address] PCP - General Family Medicine 06/22/21 09/03/21 Marycarmen Pascal MD PCP - General 09/04/21 10/18/21 Myriam Jorgensen MD [address] [place] [address] PCP - General Family Medicine 10/19/21 10/19/21 Marycarmen Pascal MD PCP - General 10/20/21 12/08/21 Myriam Jorgensen MD [address] [place] [address] PCP - General Family Medicine 12/09/21 10/11/22 Allyson Snowden PA [address] [place] [address] PCP - General Physician Hydraulic Specialist 10/12/22 10/15/22 Myriam Jorgensen MD [address] [place] [address] PCP - General 10/16/22 Nakita Kelly, RN Registered Nurse Hepatology 01/13/25 Tito Schwartz MD [address] [facility] [place], [place] Nephrology 01/13/25 documented as of this encounter
--- OUTSIDE RECORDS SUMMARY | 2025-02-02 10:20 | XMS_ITS | Clinical Summary ---
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 Active amLODIPine (NORVASC) 10 mg tablet TK 1 T PO QD 0 Active Active Problems Problem Noted Date Diagnosed Date S/p nephrectomy 09/23/2019 Primary osteoarthritis of right hip 06/02/2019 Overview (06/02/2019): Added automatically from request for surgery [id number] Primary malignant neoplasm 02/01/2014 Other pulmonary embolism [...] History of therapeutic radiation 2005 Hypertension Cancer (HCC) Family History Medical History Relation Name [...] on file Legal Sex Female 11:13 AM SALES FORECAST ANALYST Gender Identity Not on file Sexual Orientation Not on file Obstetrics History Last Filed Vital Signs Vital Sign Reading Time Taken Comments Blood Pressure 127/58 09/24/2019 2:58 PM SALES FORECAST ANALYST Pulse 74 09/24/2019 2:58 PM SALES FORECAST ANALYST Temperature 36.8 C (98.2 F) 09/24/2019 11:27 AM SALES FORECAST ANALYST Respiratory Rate 18 09/24/2019 11:27 AM SALES FORECAST ANALYST Oxygen Saturation 96% 09/24/2019 2:58 PM SALES FORECAST ANALYST Inhaled Oxygen Concentration - - Weight 86.3 kg (190 lb 3.2 oz) 10/19/2020 9:55 A M SALES FORECAST ANALYST Height 161.3 cm (5' 3.5 ) 10/19/2020 9:55 AM SALES FORECAST ANALYST Body Mass Index 33.16 10/19/2020 9:55 AM SALES FORECAST ANALYST Plan of Treatment Health Maintenance Due Date [...] Completed 08/25/2021 Medical Devices Implanted Type Area Telephone Solicitor Device Identifier Shelf Expiration Date Model / Serial / Lot [employer] [id number] Screw Bone Trident Ii L25mm Od6.5mm Low Profile Hexagonal Sterile - S0 - [id number] Implanted:Qty: 1 on 09/23/2019 by Heber Whittaker MD at [facility] Screw Right: Hip [employer] [id number] 05/05/2024 8868-3543 / 0 / [id number] Description: Hip Left: Hip [employer] 2022-2836 Screw Bone Trident Ii L30mm Od6.5mm Low Profile Hexagonal Sterile - S0 - [id number] Implanted:Qty: 1 on 09/23/2019 by Heber Whittaker MD at [facility] Right: Hip [employer] [id number] 05/27/2024 9196-3631 / 0 / [id number] Description: [employer] 702-04-58f Shell Acetabular Trident Ii Tritanium F Od58mm Hip 5 Screw Hole Cluster Sterile - S0 - [id number] Implanted:Qty: 1 on 09/23/2019 by Heber Whittaker MD at [facility] Right: Hip [employer] [id number] 04/14/2024 702-04-58F / 0 / [id number] Description: [employer] 623-00-36f 36mm 7.9mm Hip 0d F Liner Acetabular X3 - S0 - [id number] Implanted:Qty: 1 on 09/23/2019 by Heber Whittaker MD at [facility] Right: Hip [employer] [id number] 06/14/2024 623-00-36F / 0 / [id number] Description: [employer] [id number] Accolade 102mm 30mm Modular Hip 127d 3 Taper Stem Femoral Sterile - S0 - [id number] Implanted:Qty: 1 on 09/23/2019 by Heber Whittaker MD at [facility] Right: Hip [employer] [id number] / 0 / [id number] Description: [employer] 6570-0-236 V40 36mm Anatomic Hip +5mm Offset Taper Head Femoral [employer] - [id number] Implanted:Qty: 1 on 09/23/2019 by Heber Whittaker MD at [facility] Right: Hip [employer] [id number] 07/29/2024 6570-0-236 / / [id number] Description:kf Insurance [facility] CHOICE PLUS [facility] CHOICE PLUS Advance Directives For more information, please contact: [phone] * Full Code (Latest Code Status on File) Date Activated Date Inactivated Comments 09/23/2019 4:16 PM 09/24/2019 10:29 PM Care Teams Elastic Attacher Chainstitch Relationship Specialty Start Date End Date Marycarmen Ruiz MD PCP - General Family Practice 04/28/19
== END 2025-02-02 09:23 | disposition home or self-care (01) ==
LOC: ANHIMG 09:23
PROVIDERS: PCP Family Medicine; Visit Provider Student in an Organized Health Care Education/Training Program
DX: Z13.820 Encounter for screening for osteoporosis (principal); Z78.0 Asymptomatic menopausal state
CPT/HCPCS: 77080

== ENCOUNTER 2025-02-03 10:57 | Outpatient (CLI) | payer OTHER, SELFPAY ==
--- NOTE | ~2025-02-03 | MR_ITS ---
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 Of note, the patient does have a personal history of metastatic renal cell cancer, diagnosed in April of 2013 with recurrence in September of 2019 in the chest and subsequent recurrence in April of 2020 of in the supraclavicular lymph nodes. TECHNIQUE: Axial VIBRANT pre and dynamic post contrast, Sagittal VIBRANT post contrast, Axial T2 STIR ASSET COMPARISON: Mammography performed most recently on 01/05/2025 and dating back to 07/28/2020. Reference is also made to recent ultrasound examination dated 01/05/2025. CONTRAST: Multihance, 19 cc BREAST COMPOSITION: Scattered fibroglandular tissue FINDINGS: RIGHT BREAST: There is minimal background parenchymal enhancement. Within the area of architectural distortion (recent mammographic concern) benign enhancement kinetics (type I) are demonstrated. Within the lower inner right breast is a 4 mm focus of abnormal (type III, washout) enhancement kinet ics approximately 2.3 cm from the nipple, which corresponds to a 4 mm oval-shaped density on mammogra phy dated 12/17/2024 and 01/05/2025. This focus was not present on earlier studies for which second look ultrasound is suggested. No additional abnormal enhancement kinetics or morphology is present on the MRI examination within th e right breast. No pathologically enlarged or morphologically suspicious axillary or internal mammary lymph nodes are identified. LEFT BREAST: There is minimal background parenchymal enhancement. No abnormal enhancement is present after contrast administration. No pathologically enlarged or morphologically suspicious internal mammary lymph nodes. Prominent left axillary lymph nodes are present, measuring 9 mm in short axis dimension, not patholog ically enlarged - a nonspecific finding. IMPRESSION: Type 1 (continuous, benign) enhancement kinetics within the area of architectural distortion within t he right breast. 4 mm focus of type III (washout, abnormal) enhancement kinetics within the lower inner right breast f or which second look ultrasound is recommended. No abnormal contrast kinetics is identified at the 11:00 position of the right breast approximately 4 cm from the nipple to correspond to the abnormality seen on ultrasound. BI-RADS Category 0: Incomplete: Needs additional imaging evaluation. Second Look ultrasound of the lower inner right breast is suggested. Reviewed, dictated and finalized at location A. IMPRESSION: Type 1 (continuous, benign) enhancement kinetics within the area of architectur al distortion within the right breast. 4 mm focus of type III (washout, abnormal) enhancement kinetics within the lowe r inner right breast for which second look ultrasound is recommended. No abnormal contrast kinetics is identified at the 11:00 position of the right breast approximately 4 cm from the nipple to correspond to the abnormality seen on ultrasound. BI-RADS Category 0: Incomplete: Needs additional imaging evaluation. Second Look ultrasound of the lower inner right breast is suggested.
--- OUTSIDE RECORDS SUMMARY | 2025-02-03 13:04 | XMS_ITS | Clinical Summary ---
Author Organization [facility] [employer] Address [address] [facility] [place] [address] Care Team Providers Care Insurance Legal Assistant Name Role Phone Myriam Jorgensen MD Primary Care Provider [phone] Nakita Kelly RN Unavailable Unavailable Tito Schwartz MD Unavailable [phone] [facility],non-owned Affiliates and Associated Physician Practices is amultiple site organization consisting of ambulatory clinics and hospital sitesin [place], [place], [place] and [place]. This disclosure is being madepursuant to the Care Everywhere program and may not contain all information available regarding this patient. Last updated 18.[facility] [employer] Allergies Active Allergy Reactions Criticality Noted Date [...] (03/17/2021): Added automatically from request for surgery [id number] Personal history of malignant neoplasm of breast 12/04/2014 Encounter for antineoplastic chemotherapy 2013 Malignant neoplasm of kidney excluding renal pel vis 09/25/2014 Primary malignant neoplasm 02/01/2014 Other pulmonary embolism without acute cor pulmo nale 06/17/2013 Encounters Date Type Department Care Team Description 01/30/2025 12:35 AM CDT Hospital Encounter [facility] [address] [place] [address] 01/27/2025 Telephone [facility] GI [address] [place] [phone] Lorenzo Morris, SHOSHANA Follow-up 01/13/2025 9:00 AM CHEMICAL LABORATORY ASSISTANT Office Visit [facility] - Nephrology [address] [place] [address] [phone] Tito Schwartz MD Proteinuria, unspecified type (Primary Dx) 01/13/2025 Travel 01/02/2025 1:15 PM CHEMICAL LABORATORY ASSISTANT - 01/02/2025 11:59 PM CHEMICAL LABORATORY ASSISTANT Hospital Encounter [facility] US [address] [place] [address] Tito Schwartz MD Discharge Disposition: Home or Self Care 01/02/2025 Travel 12/23/2024 9:00 AM CHEMICAL LABORATORY ASSISTANT - 12/23/2024 11:59 PM CHEMICAL LABORATORY ASSISTANT Hospital Encounter [facility] RAD ONC [address] [place] [address] Ronnie Mcqueen MD Discharge Disposition: Home or Self Care 12/22/2024 1:00 PM CHEMICAL LABORATORY ASSISTANT Office Visit [facility] - Hematology/Oncology [address] [place] [address] Wai Tse MD Metastatic renal cell carcinoma, unspecified laterality (Primary Dx) 12/22/2024 12:20 PM CHEMICAL LABORATORY ASSISTANT - 12/22/2024 11:59 PM CHEMICAL LABORATORY ASSISTANT Hospital Encounter [facility] [address] [place] [address] Wai Tse MD Discharge Disposition: Home or Self Care 12/22/2024 Travel 12/18/2024 9:00 AM CHEMICAL LABORATORY ASSISTANT - 12/18/2024 11:59 PM CHEMICAL LABORATORY ASSISTANT Hospital Encounter [facility] LAB OP DRAW STATION [address] [place] [address] Ronnie Mcqueen MD Discharge Disposition: Home or Self Care 12/18/2024 8:56 AM CHEMICAL LABORATORY ASSISTANT - 12/18/2024 8:59 AM CHEMICAL LABORATORY ASSISTANT Hospital Encounter [facility] CAT SCAN [address] [place] [address] Ronnie Mcqueen MD Discharge Disposition: Home or Self Care 12/18/2024 Travel 12/09/2024 9:30 AM CHEMICAL LABORATORY ASSISTANT Office Visit [facility] - Nephrology [address] [facility] [place] [address] Kelly Coates, DIPLOMA MEDICAL ASSISTANT-IRRIGATION SYSTEM INSTALLER Tito Schwartz MD Proteinuria, unspecified type (Primary Dx); Metastatic renal cell carcinoma, unspecified laterality 12/09/2024 Travel 11/27/2024 Telephone [facility] Physician [facility] - Hematology/Oncology [address] [place] [phone] Wai Tse MD Medication Prior Auth Request; Medication Management 11/27/2024 Telephone [facility] - Hematology/Oncology [address] [place] [address] [phone] Wai Tse MD Medication Prior Auth Request 11/07/2024 Refill [facility] Hematology/Oncology [address] [place] [address] [phone] Wai Tse MD Refill Request 11/07/2024 Telephone [facility] Hematology/Oncology [address] [place] [address] [phone] AminataJacquelynKelly, DIPLOMA MEDICAL ASSISTANT-IRRIGATION SYSTEM INSTALLER Follow-up 11/07/2024 Orders Only [facility] Physician [facility] - Hematology/Oncology [address] [place] [address] [phone] Aminata, Kelly, DIPLOMA MEDICAL ASSISTANT-IRRIGATION SYSTEM INSTALLER Proteinuria, unspecified type ; Metastatic renal cell carcinoma, unspecified laterality 11/06/2024 Orders Only [facility] - Hematology/Oncology [address] [place] [address] [phone] Aminata, Kelly, DIPLOMA MEDICAL ASSISTANT-IRRIGATION SYSTEM INSTALLER Proteinuria, unspecified type from Last 3 Months Immunizations Name Administration Dates Next Due SimulScribe primary monoval ent 12+ yr 0.3mL Purple [...] Comments Blood Pressure 149/87 01/13/2025 9:11 AM CHEMICAL LABORATORY ASSISTANT Pulse 68 01/13/2025 9:11 AM CHEMICAL LABORATORY ASSISTANT Temperature 36.8 C (98.3 F) 01/13/2025 9:11 AM CHEMICAL LABORATORY ASSISTANT Respiratory Rate 18 12/23/2024 9:05 AM CHEMICAL LABORATORY ASSISTANT Oxygen Saturation 98% 01/13/2025 9:11 AM CHEMICAL LABORATORY ASSISTANT Inhaled Oxygen Concentration - - Weight 90.8 kg (200 lb 3.2 oz) 01/13/2025 9:11 A M CHEMICAL LABORATORY ASSISTANT Height 165.1 cm (5' 5 ) 01/13/2025 9:11 AM CHEMICAL LABORATORY ASSISTANT Body Mass Index 33.32 01/13/2025 9:11 AM CHEMICAL LABORATORY ASSISTANT Plan of Treatment Upcoming Encounters Date Type Department Care Team (Late st Contact Info) Description 03/23/2025 1:40 PM CDT Office Visit [facility] - Hematology/Oncology [address] [place] [phone] Wai Tse MD [address] [place] [address] OF HEMATOLOGY & [place] [address] 04/02/2025 10:00 AM CDT Appointment [facility] CAT SCAN [address] [place] [phone] Ronnie Mcqueen MD [facility] [place] [address] 04/07/2025 9:30 AM CDT Appointment [facility] RAD ONC [address] [place], [place] [phone] Ronnie Mcqueen MD [address] [place] [address] 07/14/2025 9:00 AM CDT Office Visit [facility] - Nephrology [address] [facility] [place] [phone] Tito Schwartz MD [address] [place] [address] Health Maintenance Due Date Last Done Comments [...] Medication Management General On track( 9:04 AM CHEMICAL LABORATORY ASSISTANT) No Adeola Julio, RN Note: Expected end date: ongoing Interventions: Take all medications as prescribed Safety General On track( 9:04 AM CHEMICAL LABORATORY ASSISTANT) No Nakita Kelly, SHOSHANA Note: Expected end date: ongoing Interventions: Your [...] follow-up appointments General On track( 11:58 AM CHEMICAL LABORATORY ASSISTANT) No Nakita Kelly, production team member Procedure Name Priority Date/Time Associated Diagnosis Comments PROTEIN URINE TIMED QUANTITATIVE Routine 01/30/2025 8:00 AM CDT Proteinuria, unspecified type US RETROPERITONEAL COMPLETE Routine 01/02/2025 1:56 PM CHEMICAL LABORATORY ASSISTANT Proteinuria, unspecified type Metastatic renal cell carcinoma, unspecified laterality URINALYSIS NO MICROSCOPIC NO CULTURE STAT 12/22/2024 1:06 PM CHEMICAL LABORATORY ASSISTANT Malignant neoplasm of kidney excluding renal pelvis, unspecified laterality CBC W AUTO DIFFERENTIAL STAT 12/22/19 1:06 PM CHEMICAL LABORATORY ASSISTANT Malignant neoplasm of kidney excluding renal pelvis, unspecified laterality URINALYSIS REFLEX TO MICROSCOPIC NO CULTURE Routine 12/18/2024 9:52 AM CHEMICAL LABORATORY ASSISTANT Proteinuria, unspecified type Metastatic renal cell carcinoma, unspecified laterality PROTEIN CREATININE RATIO URINE RANDOM PNL Routine 12/18/2024 9:52 AM CHEMICAL LABORATORY ASSISTANT Proteinuria, unspecified type Metastatic renal cell carcinoma, unspecified laterality SYPHILIS (T PALLIDUM) DONOR Routine 12/18/2024 9:51 AM CHEMICAL LABORATORY ASSISTANT Proteinuria, unspecified type Metastatic renal cell carcinoma, unspecified laterality REF LAB-SPECIMEN STATUS REPORT Routine 12/18/2024 9:51 AM CHEMICAL LABORATORY ASSISTANT Proteinuria, unspecified type Metastatic renal cell carcinoma, unspecified laterality IMMUNOFIXATION BLOOD Routine 12/18/2024 9:51 AM CHEMICAL LABORATORY ASSISTANT Proteinuria, unspecified type KAPPA/LAMBDA LITE CHAIN FREE PANEL Routine 12/18/2024 9:51 AM CHEMICAL LABORATORY ASSISTANT Proteinuria, unspecified type GLOMERULAR BASE MEMBRANE ANTIBODY IGG Routine 12/18/2024 9:51 AM CHEMICAL LABORATORY ASSISTANT Proteinuria, unspecified type Metastatic renal cell carcinoma, unspecified laterality PHOSPHOLIPASE A2 RECEPTOR AB IGG RFLX TITER Routine 12/18/2024 9:51 AM CHEMICAL LABORATORY ASSISTANT Proteinuria, unspecified type Metastatic renal cell carcinoma, unspecified laterality ANCA VASCULITIS PANEL Routine 12/18/2024 9:51 AM CHEMICAL LABORATORY ASSISTANT Proteinuria, unspecified type Metastatic renal cell carcinoma, unspecified laterality CHERYL BLOOD SCREEN W/REFLEX TITER Routine 12/18/2024 9:51 AM CHEMICAL LABORATORY ASSISTANT Proteinuria, unspecified type Metastatic renal cell carcinoma, unspecified laterality COMPLEMENT C4 Routine 12/18/2024 9:51 AM CHEMICAL LABORATORY ASSISTANT Proteinuria, unspecified type Metastatic renal cell carcinoma, unspecified laterality COMPLEMENT C3 Routine 12/18/2024 9:51 AM CHEMICAL LABORATORY ASSISTANT Proteinuria, unspecified type Metastatic renal cell carcinoma, unspecified laterality TREPONEMA PALLIDUM AB IGG DONOR Routine 12/18/2024 9:51 AM CHEMICAL LABORATORY ASSISTANT Proteinuria, unspecified type Metastatic renal cell carcinoma, unspecified laterality HIV-1 HIV-2 ANTIBODY + HIV P24 AG PANEL Routine 12/18/2024 9:51 AM CHEMICAL LABORATORY ASSISTANT Proteinuria, unspecified type Metastatic renal cell carcinoma, unspecified laterality CBC W/O DIFFERENTIAL Routine 12/18/2024 9:51 AM CHEMICAL LABORATORY ASSISTANT Proteinuria, unspecified type Metastatic renal cell carcinoma, unspecified laterality RENAL FUNCTION PANEL Routine 12/18/2024 9:51 AM CHEMICAL LABORATORY ASSISTANT Proteinuria, unspecified type Metastatic renal cell carcinoma, unspecified laterality DNA ANTIBODY DOUBLE STRANDED Routine 12/18/2024 9:51 AM CHEMICAL LABORATORY ASSISTANT Proteinuria, unspecified type Metastatic renal cell carcinoma, unspecified laterality CT CHEST ABDOMEN PELVIS W CONT Routine 12/18/2024 9:15 AM CHEMICAL LABORATORY ASSISTANT 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 mg/dL [facility] ACCOUNT BILL Protein 24 Hour Urine 852(H) 30 - 150 mg/24 hr [facility] ACCOUNT BILL Urine TIMED URINE SPECIMEN / Unknown 01/30/2025 8:00 AM CDT 02/02/2025 Narrative [facility] ACCOUNT BILL - 02/03/2025 10:10 AM CDT Performed at: [facility] [id number] Asset Protection Professional: Alejandro Doshi PhD, Phone: [phone] Tito Schwartz MD LAB - URINE CHEMISTR Y ORDERABLES [facility] ACCOUNT [place]ILL [place] [address] * US Retroperitoneal Complete (01/02/2025 1:56 PM CHEMICAL LABORATORY ASSISTANT) Anatomical Region Laterality Modality Abdomen Ultrasound 01/02/2025 3:48 PM CHEMICAL LABORATORY ASSISTANT Impressions 01/02/2025 4:32 PM CHEMICAL LABORATORY ASSISTANT IMPRESSION: Mild left calyectasis. Right kidney surgically absent. No renal calculus or solid renal mass in the left kidney > Dictated by Dimirtis Sewell MD, (financial institution vice president). I, Devan Acevedo MD have personally reviewed and interpreted this examination/study. > Interpreting Provider: Devan Acevedo MD on 01/02/2025 4:32 PM Narrative 01/02/2025 4:32 PM CHEMICAL LABORATORY ASSISTANT PROCEDURE: US RETROPERITONEAL COMPLETE, DATE/TIME OF EXAM: 01/02/2025 1:56 PM, LOCATION [facility] INDICATION: R80.9: Proteinuria, unspecified type [...] COMPLETE, DATE/TIME OF EXAM: 51:56 PM, LOCATION [facility] INDICATION: R80.9: Proteinuria, unspecified type [...] kidney > Dictated by Dimitris Sewell MD, (financial institution vice president). I, Devan Acevedo MD have personally reviewed and interpreted this examination/study. > Interpreting Provider: Devan Acevedo MD on 01/02/2025 4:32 PM Tito Schwartz MD ORDERABLES * (ABNORMAL) URINALYSIS NO MICROSCOPIC NO CULTURE (12/22/2024 1:06 PM CHEMICAL LABORATORY ASSISTANT) Color UA Straw Straw, Yellow 12/22/2024 1:54 PM [facility] Clarity UA Clear Clear 12/22/2024 1:54 PM [facility] Specific [place] UA 1.002(L) 1.005 - 1.030 12/22/2024 1:54 [...] Unknown Collection / Unknown 12/22/2024 1:06 PM CHEMICAL LABORATORY ASSISTANT 12/22/2024 1:39 PM [facility] - 12/22/2024 1:54 PM CHEMICAL LABORATORY ASSISTANT Wai Tse MD LAB - URINALYSIS ORD ERABLES [facility] [address] [place] [address], [facility] [phone] * (ABNORMAL) CBC W AUTO DIFFERENTIAL (12/22/2024 1:06 PM CHEMICAL LABORATORY ASSISTANT) WBC 6.5 4.0 - 10.7 x10E9/L 12/22/2024 [...] Unknown Venipuncture / Unknown 12/22/2024 1:06 PM CHEMICAL LABORATORY ASSISTANT 12/22/2024 2:09 PM [facility] Wai Tse MD LAB - HEMATOLOGY ORD ERABLES [facility] [address] [place] [address], [facility] [phone] * (ABNORMAL) URINALYSIS REFLEX TO MICROSCOPIC NO CULTURE (12/18/2024 9:52 AM CHEMICAL LABORATORY ASSISTANT) Only the most recent of2 resultswithin the time period is included. Color UA Yellow Straw, Yellow 12/18/2024 10:37 AM [facility] Clarity UA Clear Clear 12/18/2024 10:37 AM [facility] Specific [place] UA 1.003(L) 1.005 - 1.030 12/18/2024 10:37 [...] Unknown Collection / Unknown 12/18/2024 9:52 AM [facility] 12/18/2024 10:15 AM [facility] - 12/18/2024 10:37 AM [facility] Tito Schwartz MD LAB - URINALYSIS ORD ERABLES [facility] [address] [place] [address], [facility] [phone] * (ABNORMAL) PROTEIN CREATININE RATIO URINE RANDOM PNL (12/18/2024 9:52 AM [facility]) Protein Urine 102 Not Established mg/dL 12/18/2024 11:08 AM [facility] Creatinine Urine 33.98 Not Established mg/dL 12/18/2024 11:08 AM [facility] Protein/Creati nine Ratio Urine 3.00(H) <0.10 12/18/2024 11:08 AM [facility] Urine URINE SPECIMEN OBTAINED BY CLEAN CATCH PROCEDURE / Unknown Collection / Unknown 12/18/2024 9:52 AM CHEMICAL LABORATORY ASSISTANT 12/18/2024 10:15 AM CHEMICAL LABORATORY ASSISTANT Tito Schwartz MD LAB - URINE CHEMISTR Y ORDERABLES [facility] [address] [place] [address] [phone] * TREPONEMA PALLIDUM AB IGG DONOR (12/18/2024 9:51 AM CHEMICAL LABORATORY ASSISTANT) Donor Syphilis (T pallidum) see scanned report 01/15/2025 8:01 AM [facility] ([facility]) Blood BLOOD SPECIMEN / Unknown Lab Venipuncture / Unknown 12/18/2024 9:51 AM CHEMICAL LABORATORY ASSISTANT 12/18/2024 10:16 AM CHEMICAL LABORATORY ASSISTANT Tito Schwartz MD LAB - SEROLOGY ORDER HARJINDER Performing Organization Address City/[facility]/ZIP Co de Phone Number [facility] ([facility]) [address] [phone] * SYPHILIS (T PALLIDUM) DONOR (12/18/2024 9:51 AM CHEMICAL LABORATORY ASSISTANT) Donor Syphilis (T pallidum) Non Reactive Non Reactive 12/27/2024 7:08 PM CHEMICAL LABORATORY ASSISTANT [facility] ([facility]) Comment: Test performed with [employer] Syphilis (T pallidum)-G kit. Blood BLOOD SPECIMEN / Unknown Lab Venipuncture / Unknown 12/18/2024 9:51 AM CHEMICAL LABORATORY ASSISTANT 12/18/2024 10:16 AM CHEMICAL LABORATORY ASSISTANT Narrative [facility] ([facility]) - 12/27/2024 7:08 PM CHEMICAL LABORATORY ASSISTANT Performed at: [facility] [employer] [address] [place] [id number] Asset Protection Professional: Jon Pinedo [facility], Phone: [phone] Tito Schwartz MD LAB - CHEMISTRY HELENA LANDA Performing Organization Address City/[facility]/ZIP Co de Phone Number [facility] ([facility]) [address] [place] [address], [facility] * PHOSPHOLIPASE A2 RECEPTOR AB IGG RFLX TITER (12/18/2024 9:51 AM CHEMICAL LABORATORY ASSISTANT) Pathologist [facility] Phospholipase A2 Receptor IgG <1:10 <1:10 12/20/2024 4:22 PM CHEMICAL LABORATORY ASSISTANT [facility] ([facility]) Comment: Phospholipase A2 Receptor Antibody, IgG is not detected. No further testing will be performed. Performed By: [facility] [address] [place] [address] Conditioning Room Worker: Tucker Hernandez MD, PhD CLIA Number: [id number] Blood BLOOD SPECIMEN / Unknown Lab Venipuncture / Unknown 12/18/2024 9:51 AM CHEMICAL LABORATORY ASSISTANT 12/18/2024 10:16 AM CHEMICAL LABORATORY ASSISTANT Tito Schwartz MD LAB - CHEMISTRY HELENA LANDA Performing Organization Address [facility] Co de Phone Number [facility] ([facility]) [address] [place], [place] [address] * HIV-1 HIV-2 ANTIBODY + HIV P24 AG PANEL (12/18/2024 9:51 AM CHEMICAL LABORATORY ASSISTANT) Pathologist [facility] HIV Antigen/Antibod y 1 & 2 Non-reacti ve Non-react nafisa 12/18/2024 11:31 AM CHEMICAL LABORATORY ASSISTANT [facility] Comment:No Laboratory eviden ce of HIV infection. Blood BLOOD SPECIMEN / Unknown Lab Venipuncture / Unknown 12/18/2024 9:51 AM CHEMICAL LABORATORY ASSISTANT 12/18/2024 10:16 AM CHEMICAL LABORATORY ASSISTANT Tito Schwartz MD LAB - CHEMISTRY HELENA LANDA [facility] [address] [place] [phone], [facility] [phone] * REF LAB-SPECIMEN STATUS REPORT (12/18/2024 9:51 AM CHEMICAL LABORATORY ASSISTANT) [facility] Specimen Status Report Comment 12/22/2024 5:07 PM CHEMICAL LABORATORY ASSISTANT [facility] ([facility]) Comment: Written Authorization Written Authorization Written Authorization Received. Authorization received from [employer] 12-22-2024 Logged by Faye Villafana Blood BLOOD SPECIMEN / Unknown Lab Venipuncture / Unknown 12/18/2024 9:51 AM CHEMICAL LABORATORY ASSISTANT 12/18/2024 10:16 AM CHEMICAL LABORATORY ASSISTANT Narrative [facility] ([facility]) - 12/22/2024 5:07 PM CHEMICAL LABORATORY ASSISTANT Performed at: [facility] [id number] Asset Protection Professional: Alejandro Doshi PhD, Phone: [phone] Tito Schwartz MD LAB - CHEMISTRY HELENA LANDA Performing Organization Address City/[facility]/ZIP Co de Phone Number [facility] ([facility]) [address] [place] [address] * IMMUNOFIXATION BLOOD (12/18/2024 9:51 AM CHEMICAL LABORATORY ASSISTANT) [facility] Immunofixation Serum Normal Pattern Normal Pattern 12/19/2024 3:30 PM CHEMICAL LABORATORY ASSISTANT [facility] Comment: No monoclonal immunoglobulin detected by serum immunosubtraction. Margie Rinaldi PhD, [facility] Clinical Scratch Brusher splicer apprentice *The electrophoresis pattern and the interpretation have been reviewed and verified by the teaching physician. Blood BLOOD SPECIMEN / Unknown Lab Venipuncture / Unknown 12/18/2024 9:51 AM CHEMICAL LABORATORY ASSISTANT 12/18/2024 10:16 AM CHEMICAL LABORATORY ASSISTANT Tito Schwartz MD LAB - CHEMISTRY HELENA LANDA [facility] [address] [place] [address], [facility] [phone] * ANCA VASCULITIS PANEL (12/18/2024 9:51 AM CHEMICAL LABORATORY ASSISTANT) Myeloperoxidase Antibody 0 0 - 19 AU/mL 12/21/2024 12:18 PM CHEMICAL LABORATORY ASSISTANT [facility] ([facility]) Comment: INTERPRETIVE INFORMATION: Myeloperoxidase Abs, IgG 19 AU/mL or Less ......... Negative 20-25 AU/mL .............. Equivocal 26 AU/mL or Greater ...... Positive Approximately 90% of patients with a P-ANCA pattern by IFA have antibodies specific for MPO. Serine Proteinase 3 IgG 3 0 - 19 AU/mL 12/21/2024 12:18 PM CHEMICAL LABORATORY ASSISTANT [facility] ([facility]) Comment: INTERPRETIVE INFORMATION: Serine Proteinase 3, IgG 19 AU/mL or Less ........ Negative 20-25 AU/mL ............. Equivocal 26 AU/mL or Greater ..... Positive Approximately 85% of patients with a C-ANCA pattern by IFA have antibodies specific for PR3. ANCA Titer IFA <1:20 <1:20 12/21/2024 12:18 PM CHEMICAL LABORATORY ASSISTANT [facility] ([facility]) ANCA Pattern IFA None Detected None Detected 12/21/2024 12:18 PM CHEMICAL LABORATORY ASSISTANT [facility] ([facility]) Comment: INTERPRETIVE INFORMATION: ANCA IFA Pattern Neutrophil Cytoplasmic Antibodies (C-ANCA = granular cytoplasmic staining, P-ANCA = perinuclear staining) are found in the serum of over 90 percent of patients with certain necrotizing systemic vasculitides, and usually in less than 5 percent of patients with collagen vascular disease or arthritis. Performed By: [facility] [address] [place] [address] Conditioning Room Worker: Tucker Hernandez MD, PhD CLIA Number: [id number] Blood BLOOD SPECIMEN / Unknown Lab Venipuncture / Unknown 12/18/2024 9:51 AM CHEMICAL LABORATORY ASSISTANT 12/18/2024 10:55 AM CHEMICAL LABORATORY ASSISTANT Tito Schwartz MD LAB - CHEMISTRY HELENA LANDA [facility]) [address] [place] [address], [facility] * CHERYL BLOOD SCREEN W/REFLEX TITER (12/18/2024 9:51 AM CHEMICAL LABORATORY ASSISTANT) Pathologist [facility] CHERYL IgG None Detected None Detected 12/20/2024 5:47 AM CHEMICAL LABORATORY ASSISTANT [facility] [[email or web address]] [employer] ([facility]) Comment: If suspicion of connective tissue disease is strong and CHERYL EIA is negative, consider testing for CHERYL by IFA ([id number]). INTERPRETIVE INFORMATION: Anti-Nuclear Antibodies (CHERYL), IgG by ERNESTO Antinuclear Antibodies (CHERYL), IgG by ERNESTO: CHERYL specimens are screened using enzyme-linked immunosorbent assay (ERNESTO) methodology. All ERNESTO results reported as Detected are further tested by indirect fluorescent assay (IFA) using HEp-2 substrate with an IgG-specific conjugate. The CHERYL ERNESTO screen is designed to detect antibodies against dsDNA, histones, SS-A (Ro), SS-B (La), Richey, Richey/SUSTAINABILITY PROJECT COORDINATOR, Scl-70, More-1, centromeric proteins, other antigens extracted from the HEp-2 cell nucleus. CHERYL ERNESTO assays have been reported to have lower sensitivities than CHERYL IFA for systemic autoimmune rheumatic diseases (SARD). Negative results do not necessarily rule out SARD. Performed By: [facility] [address] [place] [address] Conditioning Room Worker: Tucker Hernandez MD, PhD CLIA Number: [id number] Blood BLOOD SPECIMEN / Unknown Lab Venipuncture / Unknown 12/18/2024 9:51 AM CHEMICAL LABORATORY ASSISTANT 12/18/2024 10:16 AM CHEMICAL LABORATORY ASSISTANT Tito Schwartz MD LAB - CHEMISTRY HELENA LANDA [facility] Organization Address City/State/ZIP Co de Phone Number [facility] [[email or web address]] Dial a Dealer [facility]) [address] [place] [address], [facility] * GLOMERULAR BASE MEMBRANE ANTIBODY IGG (12/18/2024 9:51 AM CHEMICAL LABORATORY ASSISTANT) [facility] GBM Antibody IgG (EU) 0 0 - 19 AU/mL 12/21/2024 12:22 PM CHEMICAL LABORATORY ASSISTANT [facility] ([facility]) Comment: INTERPRETIVE INFORMATION: GBM Ab, IgG [...] and assessment of renal prognosis. Performed By: [place] [address] Conditioning Room Worker: Tucker Hernandez MD, PhD CLIA Number: [id number] Blood BLOOD SPECIMEN / Unknown Lab Venipuncture / Unknown 12/18/2024 9:51 AM CHEMICAL LABORATORY ASSISTANT 12/18/2024 10:16 AM CHEMICAL LABORATORY ASSISTANT Tito Schwartz MD LAB - CHEMISTRY HELENA LANDA [facility]) [address] [place] [address], [facility] * DNA ANTIBODY DOUBLE STRANDED (12/18/2024 9:51 AM CHEMICAL LABORATORY ASSISTANT) dsDNA Antibody 10 0 - 24 IU 12/20/2024 12:22 AM CHEMICAL LABORATORY ASSISTANT [facility] ([facility]) Comment: INTERPRETIVE INFORMATION: Double-Stranded DNA (dsDNA) Ab IgG ERNESTO 24 IU or less........Negative 25-30 IU.............Borderline Positive 30-60 IU.............Low Positive 60-200 IU............Positive 201 IU or greater....Strong Positive Positivity for anti-double stranded DNA (anti-dsDNA) IgG antibody is a diagnostic criterion of systemic lupus erythematosus (SLE). Specimens are initially screened by enzyme-linked immunosorbent assay (ERNESTO). If ordered as reflex ([id number]), positive ERNESTO results (>24 IU) will be [...] recommendations for testing may be found at [email or web address]. Performed by [facility], [address] [place] [address] [email or web address], Balaji Torres MD, Lab. Director CLIA Number: [id number] Blood BLOOD SPECIMEN / Unknown Lab Venipuncture / Unknown 12/18/2024 9:51 AM CHEMICAL LABORATORY ASSISTANT 12/18/2024 10:16 AM CHEMICAL LABORATORY ASSISTANT Tito Schwartz MD LAB - HEMATOLOGY ORD ERABLES [facility]) [address] [place] [address] * (ABNORMAL) KAPPA/LAMBDA LITE CHAIN FREE PANEL (12/18/2024 9:51 AM CHEMICAL LABORATORY ASSISTANT) [place] Quant Free Light Chain 20.59(H) 3.30 - 19.40 mg/L 12/20/2024 5:06 AM CHEMICAL LABORATORY ASSISTANT [facility] ([facility]) Comment: INTERPRETIVE INFORMATION: [place] Qnt Free Light Chains Undetected antigen excess is a rare event but cannot be excluded. Free light chain results should always be interpreted in conjunction with other clinical and laboratory findings. Lambda Free Light Chain Quantitative 16.76 5.71 - 26.30 mg/L 12/20/2024 5:06 AM CHEMICAL LABORATORY ASSISTANT [facility] ([facility]) Comment: INTERPRETIVE INFORMATION: Lambda Qnt Free Light Chains Undetected antigen excess is a rare event but cannot be excluded. Free light chain results should always be interpreted in conjunction with other clinical and laboratory findings. [place]/Lambda Free Light Chain ratio 1.23 0.26 - 1.65 12/20/2024 5:06 AM CHEMICAL LABORATORY ASSISTANT [facility] ([facility]) Comment: Performed By: [facility] [address] [place] [address] Conditioning Room Worker: Tucker Hernandez MD, PhD CLIA Number: [id number] Blood BLOOD SPECIMEN / Unknown Lab Venipuncture / Unknown 12/18/2024 9:51 AM CHEMICAL LABORATORY ASSISTANT 12/18/2024 10:16 AM CHEMICAL LABORATORY ASSISTANT Tito Schwartz MD LAB - CHEMISTRY ORDE RABLARON [facility]) [address] * CBC W/O DIFFERENTIAL (12/18/2024 9:51 AM CHEMICAL LABORATORY ASSISTANT) WBC 4.8 4.0 - 10.7 x10E9/L 12/18/2024 10:45 AM [facility] RBC Count 4.80 3.90 - 5.20 x10E12/L 12/18/2024 10:45 AM [facility] Hemoglobin 15.6 11.9 - 15.8 [...] Lab Venipuncture / Unknown 12/18/2024 9:51 AM CHEMICAL LABORATORY ASSISTANT 12/18/2024 10:35 AM [facility] Tito Schwartz MD LAB - HEMATOLOGY ORD ERABLES [facility] [address] [place] [address], [facility] [phone] * COMPLEMENT C4 (12/18/2024 9:51 AM CHEMICAL LABORATORY ASSISTANT) Complement C4 43 15 - 57 mg/dL 12/18/2024 11:09 AM [facility] Blood BLOOD SPECIMEN / Unknown Lab Venipuncture / Unknown 12/18/2024 9:51 AM CHEMICAL LABORATORY ASSISTANT 12/18/2024 10:34 AM [facility] Tito Schwartz MD LAB - SEROLOGY ORDER HARJINDER [facility] [address] [place] [address], [facility] [phone] * (ABNORMAL) RENAL FUNCTION PANEL (12/18/2024 9:51 AM [facility]) Pathologist [facility] BUN 11 7 - 26 mg/dL 12/18/2024 [...] 275 - 295 mOsm/kg 12/18/2024 11:09 AM CHEMICAL LABORATORY ASSISTANT [facility] eGFR by CKD-EPI 68(L) >=90 mL/min/1.7 3 m2 12/18/2024 11:09 AM CHEMICAL LABORATORY ASSISTANT [facility] Blood BLOOD SPECIMEN / Unknown Lab Venipuncture / Unknown 12/18/2024 9:51 AM CHEMICAL LABORATORY ASSISTANT 12/18/2024 10:34 AM CHEMICAL LABORATORY ASSISTANT Tito Schwartz MD LAB - CHEMISTRY ORDDanielle LANDA [facility] [address] [place] [address], [facility] [phone] * COMPLEMENT C3 (12/18/2024 9:51 AM CHEMICAL LABORATORY ASSISTANT) Complement C3 161 82 - 193 mg/dL 12/18/2024 11:09 AM CHEMICAL LABORATORY ASSISTANT [facility] Blood BLOOD SPECIMEN / Unknown Lab Venipuncture / Unknown 12/18/2024 9:51 AM CHEMICAL LABORATORY ASSISTANT 12/18/2024 10:34 AM CHEMICAL LABORATORY ASSISTANT Tito Schwartz MD LAB - CHEMISTRY HELENA LANDA [facility] [address] [place] [address], [facility] [phone] * CT Chest Abdomen Pelvis W Cont (12/18/2024 9:15 AM CHEMICAL LABORATORY ASSISTANT) Anatomical Region Laterality Modality Chest, Abdomen, Pelvis Computed Tomography 12/18/2024 9:27 AM CHEMICAL LABORATORY ASSISTANT Impressions 12/18/2024 10:32 AM CHEMICAL LABORATORY ASSISTANT Impression: 1.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 2.No evidence of metastatic disease within the chest, abdomen, or pelvis. > Dictated by Florentino Duncan MD, (financial institution vice president). I, Maribel Reyes MD have personally reviewed and interpreted this examination/study. > Interpreting Provider: Maribel Reyes MD on 12/18/2024 10:32 AM Narrative 12/18/2024 10:32 AM CHEMICAL LABORATORY ASSISTANT PROCEDURE: CT CHEST ABDOMEN PELVIS W CONT, DATE/TIME OF EXAM: 12/18/2024 9:16 AM, LOCATION [facility] INDICATION: C78.02: Malignant neoplasm metastatic [...] DATE/TIME OF EXAM: 12/18/2024 9:16 AM, LOCATION [facility] INDICATION: C78.02: Malignant neoplasm metastatic [...] orpelvis. > Dictated by Florentino Duncan MD, (financial institution vice president). I, Maribel Reyes MD have personally reviewed and interpreted this examination/study. > Interpreting Provider: Maribel Reyes MD on 510:32 AM Ronnie Mcqueen MD CT ORDERABLES * (ABNORMAL) CREATININE - POCT INTERFACED (12/18/2024 9:02 AM CHEMICAL LABORATORY ASSISTANT) [facility] Creatinine POCT 0.75 0.30 - 1.30 mg/dL 12/18/2024 9:08 AM [facility] eGFR 88(L) >=90 mL/min/1.7 3 m2 12/18/2024 9:08 AM [facility] Blood BLOOD SPECIMEN / Unknown 12/18/2024 9:02 AM CHEMICAL LABORATORY ASSISTANT 12/18/2024 9:08 AM CHEMICAL LABORATORY ASSISTANT Ronnie Mcqueen MD LAB - POINT OF CARE ORDERABLES [facility] [address] [place] [address], [facility] [phone] * LAB RESULTS ORDER (11/06/2024) 11/06/2024 Narrative 11/06/2024 Ordered by an unspecified provider. Scanned Document LAB - THERAPEUTIC DR MEDARDO MONITORING ORDERABLES * HEPATITIS C RNA QUANTITATIVE (03/17/2021 10:19 AM CDT) [facility] Hepatitis C RNA PCR, Interp Not detected Not detected 03/21/2021 3:48 PM CDT [facility] Blood BLOOD SPECIMEN / Unknown Lab Venipuncture / Unknown 03/17/2021 10:19 AM CDT 03/17/2021 10:35 AM CDT Narrative [facility] - 03/21/2021 3:48 PM CDT The Hepatitis C viral (HCV) RNA analysis utilized a serum sample, real-time reverse telephone sex worker PCR, and is reported as Not Detected, [...] the isolation of HCV RNA with reverse telephone sex worker of genomic HCV RNA followed by real-time PCR in the presence of an unrelated RNA internal control. The internal control ensures that RNA is isolated, and that no general significant inhibitors of the RT-PCR process are present. The analysis was performed using a U.S. FDA approved test methodology ([employer] Real Time HCV). Jessica Padron DIPLOMA MEDICAL ASSISTANT-IRRIGATION SYSTEM INSTALLER LAB - CHEMIS TRY ORDERABLES [facility] [address] [place] [address], [facility] [phone] from Last 3 Months or Most Recently Relevant to Health Maintenance Advance Directives * Full Code (Latest Code Status on File) Date Activated Date Inactivated Comments 01/01/2020 1:07 PM 01/02/2020 11:33 AM Care Teams Insurance Legal Assistant Relationship Specialty Start Date End Date Myriam Jorgensen MD [address] [place] [address] PCP - General 10/16/22 Nakita Kelly, RN Registered Nurse Hepatology 01/13/25 Tito Schwartz MD [address] OF [facility] INTERNAL MEDICINE [place], [place] Nephrology 01/13/25
--- OUTSIDE RECORDS SUMMARY | 2025-02-03 13:04 | XMS_ITS | Clinical Summary ---
Author Organization [facility] Address [address] [place] [address] Care Team Providers Care Beet End Supervisor Name Role Phone Marycarmen Ruiz MD Primary Care Provider [phone] Allergies No known active allergies Medications atorvastatin [...] (06/02/2019): Added automatically from request for surgery [id number] Primary malignant neoplasm 02/01/2014 Other pulmonary embolism [...] on file Legal Sex Female 11:13 AM DOCTOR OF DENTAL MEDICINE Gender Identity Not on file Sexual Orientation Not on file Obstetrics History Last Filed Vital Signs Vital Sign Reading Time Taken Comments Blood Pressure 127/58 09/24/2019 2:58 PM DOCTOR OF DENTAL MEDICINE Pulse 74 09/24/2019 2:58 PM DOCTOR OF DENTAL MEDICINE Temperature 36.8 C (98.2 F) 09/24/2019 11:27 AM DOCTOR OF DENTAL MEDICINE Respiratory Rate 18 09/24/2019 11:27 AM DOCTOR OF DENTAL MEDICINE Oxygen Saturation 96% 09/24/2019 2:58 PM DOCTOR OF DENTAL MEDICINE Inhaled Oxygen Concentration - - Weight 86.3 kg (190 lb 3.2 oz) 10/19/2020 9:55 A M DOCTOR OF DENTAL MEDICINE Height 161.3 cm (5' 3.5 ) 10/19/2020 9:55 AM DOCTOR OF DENTAL MEDICINE Body Mass Index 33.16 10/19/2020 9:55 AM DOCTOR OF DENTAL MEDICINE Plan of Treatment Health Maintenance Due Date [...] Completed 08/25/2021 Medical Devices Implanted Type Area Polo Coach Device Identifier Shelf Expiration Date Model / Serial / Lot [employer] 3685-7560 Screw Bone Trident Ii L25mm Od6.5mm Low Profile Hexagonal Sterile - S0 - [id number] Implanted:Qty: 1 on 09/23/2019 by Heber Whittaker MD at [facility] Screw Right: Hip [employer] [id number] 05/05/2024 3096-8076 / 0 / [id number] Description: Hip Left: Hip [employer] 8861-5948 Screw Bone Trident Ii L30mm Od6.5mm Low Profile Hexagonal Sterile - S0 - [id number] Implanted:Qty: 1 on 09/23/2019 by Heber Whittaker MD at [facility] Right: Hip [employer] [id number] 05/27/2024 6675-1179 / 0 / [id number] Description: [employer] 702-04-58f Shell Acetabular Trident Ii Tritanium F Od58mm Hip 5 Screw Hole Cluster Sterile - S0 - [id number] Implanted:Qty: 1 on 09/23/2019 by Heber Whittaker MD at [facility] Right: Hip [employer] [id number] 04/14/2024 702-04-58F / 0 / [id number] Description: [employer] 623-00-36f 36mm 7.9mm Hip 0d F Liner Acetabular X3 - S0 - [id number] Implanted:Qty: 1 on 09/23/2019 by Heber Whittaker MD at [facility] Right: Hip [employer] [id number] 06/14/2024 623-00-36F / 0 / [id number] Description: [employer] [id number] Accolade 102mm 30mm Modular Hip 127d 3 Taper Stem Femoral Sterile - S0 - [id number] Implanted:Qty: 1 on 09/23/2019 by Hbeer Whittaker MD at [facility] Right: Hip [employer] [id number] / 0 / [id number] Description: [employer] 6570-0-236 V40 36mm Anatomic Hip +5mm Offset Taper Head Femoral Biolox Delta - [id number] Implanted:Qty: 1 on 09/23/2019 by Heber Whittaker MD at [facility] Right: Hip [employer] [id number] 07/29/2024 6570-0-236 / / [id number] Description:kf Insurance [facility] PL[facility] CHOICE PLUS Advance Directives For more information, please contact: [phone] * Full Code (Latest Code Status on File) Date Activated Date Inactivated Comments 09/23/2019 4:16 PM 09/24/2019 10:29 PM Care Teams Beet End Supervisor Relationship Specialty Start Date End Date Marycarmen Ruiz MD PCP - General Family Practice 04/28/19
--- OUTSIDE RECORDS SUMMARY | 2025-02-03 13:04 | XMS_ITS | Encounter Summary ---
Author Organization [facility] Address [address] [facility] [place] [address] Care Team Providers Care Multiple Spindle Router Operator Name Role Phone Marycarmen Pascal MD Primary [...] RN Unavailable Unavailable Tito Schwartz MD Unavailable [phone] Encounter Details Date Type Department Care Team (Late st Contact Info) Description 01/06/2020 Lab Requisition [facility] Pathology Lab [address] [place] [address] Johnie Mendiola MD [address] [place] [address] Social History Tobacco Use Types Packs/Day Years [...] 03/23/2025 1:40 PM CDT Office Visit [facility] - Hematology/Oncology [address] [place] [id number] Wai Tse MD [address] [place] [address] OF HEMATOLOGY & [place] [address] 04/02/2025 10:00 AM CDT Appointment [facility] CAT SCAN [address] [place] [address] Ronnie Mcqueen MD [address] [place] [address] 04/07/2025 9:30 AM CDT Appointment [facility] RAD ONC [address] [place] [address] Ronnie Mcqueen MD [address] [place] [address] 07/14/2025 9:00 AM CDT Office Visit [facility] - Nephrology [address] [facility], [place] [address] Tito Schwartz MD [address] [place] [address] documented as of this encounter Procedures Procedure Name Priority Date/Time Associated Diagnosis Comments SLIDE PREP HISTOLOGY Routine 01/01/2020 8:42 AM FORM PRESS OPERATOR documented in this encounter Results * SLIDE PREP HISTOLOGY (01/01/2020 8:42 AM FORM PRESS OPERATOR) Client Specimen ID # [id number] 01/07/2020 6:02 PM FORM PRESS OPERATOR [facility] PATHOLOGY LAB Number of Blocks Received 0 01/07/2020 6:02 PM FORM PRESS OPERATOR [facility] PATHOLOGY LAB Number of Slides 1 01/07/2020 6:02 PM FORM PRESS OPERATOR [facility] PATHOLOGY LAB Number of Control Slides 1 01/07/2020 6:02 PM FORM PRESS OPERATOR [facility] PATHOLOGY LAB Pathology/Cytolo gy BIOPSY OF LUNG / Unknown 01/01/2020 8:42 AM FORM PRESS OPERATOR 01/06/2020 3:30 PM FORM PRESS OPERATOR Johnie Baum MD LAB - PATHOLOGY/CYTO LOGY ORDERABLES [facility] PATHOLOGY LAB [address] [facility]. [address] [phone] documented in this encounter Visit Diagnoses Not on filedocumented in this encounter Care Teams Multiple Spindle Router Operator Relationship Specialty Start Date End Date Marycarmen Pascal MD PCP - General 03/27/19 06/21/21 Myriam Jorgensen MD [address] [place] [address] PCP - General Family Medicine 06/22/21 09/03/21 Marycarmen Pascal MD PCP - General 09/04/21 10/18/21 Myriam Jorgensen MD [address] [place] [address] PCP - General Family Medicine 10/19/21 10/19/21 Marycarmen Pascal MD PCP - General 10/20/21 12/08/21 Myriam Jorgensen MD [address] [place] [address] PCP - General Family Medicine 12/09/21 10/11/22 Allyson Snowden PA [address] [place] [address] PCP - General Physician Portable Power Tool Repairer 10/12/22 10/15/22 Myriam Jorgensen MD [address] [place] [address] PCP - General 10/16/22 Nakita Kelly, RN Registered Nurse Hepatology 01/13/25 Tito Schwartz MD [address] INTERNAL MEDICINE [place], [place] Nephrology 01/13/25 documented as of this encounter
--- OUTSIDE RECORDS SUMMARY | 2025-02-03 13:04 | XMS_ITS ---
Author Organization [facility] Address [address] [place] [address] Care Team Providers Care Silver Cleaner Name Role Phone Myriam Jorgensen MD Primary Care Provider [phone] Nakita Kelly RN Unavailable Unavailable Tito Schwartz MD Unavailable [phone] Active Problems Problem Noted Date Diagnosed Date Gilbert syndrome 06/27/2022 Elevated liver enzymes 03/17/2021 Cancer, metastatic to lung 11/03/2019 Nonspecific abnormal electrocardiogram (ECG) (EK G) 11/03/2019 S/p nephrectomy 09/23/2019 Primary osteoarthritis of right hip 06/02/2019 Overview (03/17/2021): Added automatically from request for surgery [id number] Personal history of malignant neoplasm of breast [...]
--- OUTSIDE RECORDS SUMMARY | 2025-02-03 13:04 | XMS_ITS | Referral Summary ---
Author Organization [facility] Address [address] [place] [address] Care Team Providers Care Recruitment Director Name Role Phone Marycarmen Ruiz MD Primary Care Provider [phone] Allergies No known active allergies Medications atorvastatin (LIPITOR) 10 mg tabletIndicatio ns:hyperlipidem ia Take 10 mg by mouth every morning 6 Active losartan (COZAAR) 100 mg tabletIndicatio ns:hypertension Take 100 mg by mouth every morning 6 Active levothyroxine (SYNTHROID) 25 mcg tablet Take 25 mcg by mouth fisher trawl net before breakfast Active amLODIPine (NORVASC) 10 mg tablet TK 1 T PO QD 0 Active Active Problems Problem Noted Date Diagnosed Date S/p nephrectomy 09/23/2019 Primary osteoarthritis of right hip 06/02/2019 Overview (06/02/2019): Added automatically from request for surgery [id number] Primary malignant neoplasm 02/01/2014 Other pulmonary embolism [...] on file Legal Sex Female 11:[address] Gender Identity Not on file Sexual Orientation Not on file Last Filed Vital Signs Vital Sign Reading Time Taken Comments Blood Pressure 127/58 09/24/2019 2:[address]ER Pulse 74 09/24/2019 2:[address] Temperature 36.8 C (98.2 F) 09/24/2019 11:[address] Respiratory Rate 18 09/24/2019 11:[address] Oxygen Saturation 96% 09/24/2019 2:[address]ER Inhaled Oxygen Concentration - - Weight 86.3 kg (190 lb 3.2 oz) 10/19/2020 9:[address] P[address]ER Height 161.3 cm (5' 3.5 ) 10/19/2020 9:[address] Body Mass Index 33.16 10/19/2020 9:[address] Plan of Treatment Not on file Medical Devices Implanted Type Area Program Director/Traffic Director Device Identifier Shelf Expiration Date Model / Serial / Lot [employer] 0521-9211 Screw Bone Trident Ii L25mm Od6.5mm Low Profile Hexagonal Sterile - S0 - [id number] Implanted:Qty: 1 on 09/23/2019 by Heber Whittaker MD at [facility] Screw Right: Hip [employer] [id number] 05/05/2024 5093-0133 / 0 / [id number] Description: Hip Left: Hip [employer] 8501-6115 Screw Bone Trident Ii L30mm Od6.5mm Low Profile Hexagonal Sterile - S0 - [id number] Implanted:Qty: 1 on 09/23/2019 by Heber Whittaker MD at [facility] Right: Hip [employer] [id number] 05/27/2024 9175-6865 / 0 / 4P4D Description: [employer] 702-04-58f Shell Acetabular Trident Ii Tritanium F Od58mm Hip 5 Screw Hole Cluster Sterile - S0 - [id number] Implanted:Qty: 1 on 09/23/2019 by Heber Whittaker MD at [facility] Right: Hip [employer] [id number] 04/14/2024 702-04-58F / 0 / [id number] Description: [employer] 623-00-36f 36mm 7.9mm Hip 0d F Liner Acetabular X3 - S0 - [id number] Implanted:Qty: 1 on 09/23/2019 by Heber Whittaker MD at [facility] Right: Hip [employer] [id number] 06/14/2024 623-00-36F / 0 / [id number] Description: [employer] [id number] Accolade 102mm 30mm Modular Hip 127d 3 Taper Stem Femoral Sterile - S0 - [id number] Implanted:Qty: 1 on 09/23/2019 by Heber Whittaker MD at [facility] Right: Hip [employer] [id number] / 0 / [id number] Description: [employer] 6570-0-236 V40 36mm Anatomic Hip +5mm Offset Taper Head Femoral Biol[employer] Delta - [id number] Implanted:Qty: 1 on 09/23/2019 by Heber Whittaker MD at [facility] Right: Hip [employer] [id number] 07/29/2024 6570-0-236 / / [id number] Description:kf Insurance [facility] CHOICE PLUS [facility] H[facility]/PPO Address: [facility] [id number] [place], [place] [id number] [facility] CHOICE PLUS [facility] H[facility]/PPO Address: [place] [address] Advance Directives For more information, please contact: [phone] * Full Code (Latest Code Status on File) Date Activated Date Inactivated Comments 09/23/2019 4:16 PM 09/24/2019 10:29 PM Care Teams Recruitment Director Relationship Specialty Start Date End Date Marycarmen Ruiz MD PCP - General Family Practice 04/28/19
--- OUTSIDE RECORDS SUMMARY | 2025-02-03 13:04 | XMS_ITS | Encounter Summary ---
Author Organization [facility] Health Address [address] [place] [address] Care Team Providers Care Pressure Tank Operator Name Role Phone Myriam Jorgensen MD Primary Care Provider Nakita Kelly RN Unavailable Unavailable Tito Schwartz MD Unavailable [phone] Encounter Details Date Type Department Care Team (Late st Contact Info) Description 01/30/2025 12:35 AM CDT Hospital Encounter [facility] MAIN [address] [phone] Social History Tobacco Use Types Packs/Day Years [...] Description 03/23/2025 1:40 PM CDT Office Visit [facility] - Hematology/Oncology [address] [place] [phone] Wai Tse MD [address] [place] [address] DIV OF HEMATOLOGY & [place] [address] 04/02/2025 10:00 AM CDT Appointment [facility] CAT SCAN [address] [place] [phone] Ronnie Mcqueen MD [address] [place] [address] 04/07/2025 9:30 AM CDT Appointment [facility] RAD ONC [address] [place] [address] Ronnie Mcqueen MD [address] [place] [address] 07/14/2025 9:00 AM CDT Office Visit [facility] - Nephrology [address] [facility] [place], [place] [phone] Tito Schwartz MD [address] [place] [address] documented as of this encounter Goals Goal Patient Goal Type Associated Problems Recent Progress Patient-Stated? Author Medication Management General On track( 9:04 AM TEENAGE BABYSITTER) No Adeola Julio, RN Note: Expected end date: ongoing Interventions: Take all medications as prescribed Safety General On track( 9:04 AM TEENAGE BABYSITTER) No Nakita Kelly, RN Note: Expected end [...] and keep follow-up appointments General On track( 025 11:58 AM TEENAGE BABYSITTER) Nakita Trujillo, RN documented as of this encounter Visit Diagnoses Not on filedocumented in this encounter Care Teams Pressure Tank Operator Relationship Specialty Start Date End Date Myriam Jorgensen MD [address] [place] [address] PCP - General 10/16/22 Nakita Kelly, RN Registered Nurse Hepatology 01/13/25 Tito Schwartz MD [address] [facility] [place], [place] Nephrology 01/13/25 documented as of this encounter
== END 2025-02-03 10:58 | disposition home or self-care (01) ==
PROVIDERS: PCP Family Medicine; Visit Provider Surgery
DX: R92.8 Other abnormal and inconclusive findings on diagnostic imaging of breast (principal); Z85.3 Personal history of malignant neoplasm of breast; N63.11 Unspecified lump in the right breast, upper outer quadrant
CPT/HCPCS: 77049; A9579; C8908

== ENCOUNTER 2025-02-05 07:36 | Outpatient (CLI) | payer OTHER, SELFPAY ==
--- NOTE | ~2025-02-05 | MMUS_ITS ---
EXAMINATION: 1. US breast biopsy RT w image 2. MM post biopsy diagnostic RT DATE: 02/05/2025 09:13 INDICATION: Right breast mass. Personal history of malignant neoplasm of right breast. TECHNIQUE: The procedure including the risks, benefits, and alternatives was discussed with the patie nt. Risks discussed included bleeding and infection. The patient understood the risks and agreed to p roceed. The skin of the right breast was prepped and draped in usual sterile fashion. Anesthetic was administered with 1% lidocaine at the skin and 1% lidocaine with epinephrine in the deeper tissue. A 10-gauge vacuum-assisted core biopsy needle was then used to obtain 6 core biopsy specimens under c ontinuous sonographic guidance. A Mammotome HydroMARK butterfly marker was placed under sonographic g uidance The entry site was cleaned and dressed. There were no immediate complications. A two-view mammogram was obtained to document marker placement. FINDINGS: Ultrasound images demonstrate the needle in a 4 mm mass in the right breast at 11:00, 4 cm from the nipple. Breast composition: There are scattered areas of fibroglandular density. Mammogram: A marker and biopsy changes are noted in the upper outer right breast. IMPRESSION: 1. Successful ultrasound-guided vacuum-assisted biopsy of a 4 mm mass in the right breast at 11:00, 4 cm from the nipple with post procedure mammogram for marker placement. Reviewed, dictated and finalized at location A. IMPRESSION: 1. Successful ultrasound-guided vacuum-assisted biopsy of a 4 mm mass in the ri ght breast at 11:00, 4 cm from the nipple with post procedure mammogram for mar ker placement.
--- NOTE | ~2025-02-05 | US_ITS ---
US breast RT limited INDICATION: Follow-up right breast mass/enhancement seen on prior MRI examination dated 02/03/2025 TECHNIQUE: Dedicated Limited right breast ultrasound COMPARISON: MRI breast dated 02/03/2025, diagnostic right mammogram and ultrasound dated 01/05/2025 and screening mammogram dated 12/17/2019 BREAST DENSITY: Not dense: There are scattered areas of fibroglandular density. FINDINGS: The right breast is/are composed of normal heterogeneous echotexture without focal solid or cystic mass. No sonographic finding to concern on prior MRI examination. IMPRESSION: 1: Normal limited breast ultrasound. BI-RADS CATEGORY 4-SUSPICIOUS ABNORMALITY RECOMMENDATION: Recommend further evaluation with MRI guided biopsy given that the mass is not identi fied by ultrasound. Alternatively this may be be biopsied utilizing stereotactic technique. Reviewed, dictated and finalized at location A. IMPRESSION: 1: Normal limited breast ultrasound. BI-RADS CATEGORY 4-SUSPICIOUS ABNORMALITY RECOMMENDATION: Recommend further evaluation with MRI guided biopsy given that the mass is not identified by ultrasound. Alternatively this may be be biopsied utilizing stereotactic technique.
--- OUTSIDE RECORDS SUMMARY | 2025-02-05 07:41 | XMS_ITS | Encounter Summary ---
Author Organization [facility] Address [address] [place] [address] Care Team Providers Care Spray Applicator Name Role Phone Myriam Jorgensen MD Primary Care Provider [phone] Nakita Kelly RN Unavailable Unavailable Tito Schwartz MD Unavailable [phone] Reason for Visit * Reason Comments Refill Request Encounter Details Date Type Department Care Team (Late st Contact Info) Description 02/05/2025 Refill [facility] - Nephrology [address] [facility], [place] [address] Tito Schwartz MD [address] [place] [address] Refill Request Social History Tobacco Use Types Packs/Day Years [...] Description 03/23/2025 1:40 PM CDT Office Visit [facility] - Hematology/Oncology [address] [place] [phone] Wai Tse MD [address] [place] [address] OF HEMATOLOGY & [place] [address] 04/02/2025 10:00 AM CDT Appointment [facility] CAT SCAN [address] [place] [phone] Ronnie Mcqueen MD [address] [place] [address] 04/07/2025 9:30 AM CDT Appointment [facility] RAD ONC [address] [place] [address] Ronnie Mcqueen MD [address] [place] [address] 07/14/2025 9:00 AM CDT Office Visit [facility] - Nephrology [address] [facility], [place] [phone] Tito Schwartz MD [address] [place] [address] documented as of this encounter Goals Goal Patient Goal Type Associated Problems Recent Progress Patient-Stated? Author Medication Management General On track( 025 9:04 AM HAND EMBROIDERER) Adeola Grant, RN Note: Expected end date: ongoing Interventions: Take all medications as prescribed Safety General On track( 025 9:04 AM HAND EMBROIDERER) Nakita Trujillo RN Note: Expected end date: ongoing Interventions: [...] appointments General On track( 025 11:58 AM HAND EMBROIDERER) Nakita Trujillo RN documented as of this encounter Visit Diagnoses Not on filedocumented in this encounter Care Teams Spray Applicator Relationship Specialty Start Date End Date Myriam Jorgensen MD [address] [place] [address] PCP - General 10/16/22 Nakita Kelly, RN Registered Nurse Hepatology 01/13/25 Tito Schwartz MD [address] [facility] [place], [place] Nephrology 01/13/25 documented as of this encounter
--- OUTSIDE RECORDS SUMMARY | 2025-02-05 07:42 | XMS_ITS | Clinical Summary ---
Author Organization [facility] Address [address] [place] [address] Care Team Providers Care Dietetics Professor Name Role Phone Marycarmen Ruiz MD Primary Care Provider [phone] Allergies No known active allergies Medications atorvastatin (LIPITOR) 10 mg tabletIndicatio ns:hyperlipidem ia Take 10 mg by mouth every morning 6 Active losartan (COZAAR) 100 mg tabletIndicatio ns:hypertension Take 100 mg by mouth every morning 6 Active levothyroxine (SYNTHROID) 25 mcg tablet Take 25 mcg by mouth radiator repairer before breakfast Active amLODIPine (NORVASC) 10 mg tablet TK 1 T PO QD 0 Active Active Problems Problem Noted Date Diagnosed Date S/p nephrectomy 09/23/2019 Primary osteoarthritis of right hip 06/02/2019 Overview (06/02/2019): Added automatically from request for surgery [id number] Primary malignant neoplasm 02/01/2014 Other pulmonary embolism [...] on file Legal Sex Female 11:13 AM CIRCUIT TESTER Gender Identity Not on file Sexual Orientation Not on file Obstetrics History Last Filed Vital Signs Vital Sign Reading Time Taken Comments Blood Pressure 127/58 09/24/2019 2:58 PM CIRCUIT TESTER Pulse 74 09/24/2019 2:58 PM CIRCUIT TESTER Temperature 36.8 C (98.2 F) 09/24/2019 11:27 AM CIRCUIT TESTER Respiratory Rate 18 09/24/2019 11:27 AM CIRCUIT TESTER Oxygen Saturation 96% 09/24/2019 2:58 PM CIRCUIT TESTER Inhaled Oxygen Concentration - - Weight 86.3 kg (190 lb 3.2 oz) 10/19/2020 9:55 A M CIRCUIT TESTER Height 161.3 cm (5' 3.5 ) 10/19/2020 9:55 AM CIRCUIT TESTER Body Mass Index 33.16 10/19/2020 9:55 AM CIRCUIT TESTER Plan of Treatment Health Maintenance Due Date [...] Completed 08/25/2021 Medical Devices Implanted Type Area Urgent Care Physician Device Identifier Shelf Expiration Date Model / Serial / Lot [employer] [id number] Screw Bone Trident Ii L25mm Od6.5mm Low Profile Hexagonal Sterile - S0 - [id number] Implanted:Qty: 1 on 09/23/2019 by Heber Whittaker MD at [facility] Screw Right: Hip [employer] [id number] 05/05/2024 7339-5571 / 0 / [id number] Description: Hip Left: Hip [employer] [id number] Screw Bone Trident Ii L30mm Od6.5mm Low Profile Hexagonal Sterile - S0 - [id number] Implanted:Qty: 1 on 09/23/2019 by Heber Whittaker MD at [facility] Right: Hip [employer] [id number] 05/27/2024 2900-0900 / 0 / [id number] Description: [employer] 702-04-58f Shell Acetabular Trident Ii Tritanium F Od58mm Hip 5 Screw Hole Cluster Sterile - S0 - [id number] Implanted:Qty: 1 on 09/23/2019 by Heber Whittaker MD at [facility] Right: Hip [employer] [id number] 04/14/2024 702-04-58F / 0 / [id number] Description: [employer] 623-00-36f 36mm 7.9mm Hip 0d F Liner Acetabular X3 - S0 - [id number] Implanted:Qty: 1 on 09/23/2019 by Heber Whittaker MD at [facility] Right: Hip [employer] [id number] 06/14/2024 623-00-36F / 0 / [id number] Description: [employer] [id number] Accolade 102mm 30mm Modular Hip 127d 3 Taper Stem Femoral Sterile - S0 - [id number] Implanted:Qty: 1 on 09/23/2019 by Heber Whittaker MD at [facility] Right: Hip [employer] [id number] / 0 / [id number] Description: [employer] 6570-0-236 V40 36mm Anatomic Hip +5mm Offset Taper Head Femoral [employer] - [id number] Implanted:Qty: 1 on 09/23/2019 by Heber Whittaker MD at [facility] Right: Hip [employer] [id number] 07/29/2024 6570-0-236 / / [id number] Description:kf Insurance [facility]/PPO Address: [facility] [address] [place] [address] [facility] CHOICE PLUS [facility] H[facility]/PPO Address: [facility] [address] [place] [address] Advance Directives For more information, please contact: [phone] * Full Code (Latest Code Status on File) Date Activated Date Inactivated Comments 09/23/2019 4:16 PM 09/24/2019 10:29 PM Care Teams Dietetics Professor Relationship Specialty Start Date End Date Marycarmen Ruiz MD PCP - General Family Practice 04/28/19
--- OUTSIDE RECORDS SUMMARY | 2025-02-05 07:42 | XMS_ITS | Clinical Summary ---
Author Organization [facility] [employer] Address [address] [place] [address] Care Team Providers Care Patent Lawyer Name Role Phone Myriam Jorgensen MD Primary Care Provider [phone] Nakita Kelly RN Unavailable Unavailable Tito Schwartz MD Unavailable Source Comments [facility],non-owned Affiliates and Associated Physician Practices is amultiple site organization consisting of ambulatory clinics and hospital sitesin [place], [place], [place] and [place]. This disclosure is being madepursuant to the Care Everywhere program and may not contain all information available regarding this patient. Last updated 18.[facility] [employer] Allergies Active Allergy Reactions Criticality Noted Date [...] (03/17/2021): Added automatically from request for surgery [id number] Personal history of malignant neoplasm of breast 12/04/2014 Encounter for antineoplastic chemotherapy 2013 Malignant neoplasm of kidney excluding renal pel vis 09/25/2014 Primary malignant neoplasm 02/01/2014 Other pulmonary embolism without acute cor pulmo nale 06/17/2013 Encounters Date Type Department Care Team Description 02/05/2025 Refill [facility] - Nephrology [address] [place] [phone] Tito Schwartz MD Refill Request 02/04/2025 Telephone [facility] - Nephrology [address] [place] [phone] Tito Schwartz MD Results 01/30/2025 12:35 AM CDT - 01/30/2025 11:59 PM CDT Hospital Encounter [facility] MAIN LAB [address] [place] [address] Discharge Disposition: Home or Self Care 01/27/2025 Telephone [facility] - GI [address] [place] [address] Lorenzo Morris, RN Follow-up 01/13/2025 9:00 AM TAPE SEWER Office Visit [facility] - Nephrology [address] [place] [phone] Tito Schwartz MD Proteinuria, unspecified type (Primary Dx) 01/13/2025 Travel 01/02/2025 1:15 PM TAPE SEWER - 01/02/2025 11:59 PM TAPE SEWER Hospital Encounter [facility] US [address] [place] [address] Tito Schwartz MD Discharge Disposition: Home or Self Care 01/02/2025 Travel 12/23/2024 9:00 AM TAPE SEWER - 12/23/2024 11:59 PM TAPE SEWER Hospital Encounter [facility] RAD ONC [address] [place] [address] Ronnie Mcqueen MD Discharge Disposition: Home or Self Care 12/22/2024 1:00 PM TAPE SEWER Office Visit [facility] - Hematology/Oncology [address] [place] [phone] Wai Tse MD Metastatic renal cell carcinoma, unspecified laterality (Primary Dx) 12/22/2024 12:20 PM TAPE SEWER - 12/22/2024 11:59 PM TAPE SEWER Hospital Encounter [facility] INFUSION CENTER [address] [place] [phone] Wai Tse MD Discharge Disposition: Home or Self Care 12/22/2024 Travel 12/18/2024 9:00 AM TAPE SEWER - 12/18/2024 11:59 PM TAPE SEWER Hospital Encounter [facility] LAB OP DRAW STATION [address] [place] [address] Ronnie Mcqueen MD Discharge Disposition: Home or Self Care 12/18/2024 8:56 AM TAPE SEWER - 12/18/2024 8:59 AM TAPE SEWER Hospital Encounter [facility] CAT SCAN [address] [place] [address] Ronnie Mcqueen MD Discharge Disposition: Home or Self Care 12/18/2024 Travel 12/09/2024 9:30 AM TAPE SEWER Office Visit [facility] - Nephrology [address] [facility], [place] [address] Kelly Coates, SOCIAL MEDIA MARKETING MANAGER-NATIONAL SALES CONSULTANT Tito Schwartz MD Proteinuria, unspecified type (Primary Dx); Metastatic renal cell carcinoma, unspecified laterality 12/09/2024 Travel 11/27/2024 Telephone [facility] - Hematology/Oncology [address] [place] [phone] Wai Tse MD Medication Prior Auth Request; Medication Management 11/27/2024 Telephone [facility] - Hematology/Oncology [address] [place] [phone] Wai Tse MD Medication Prior Auth Request 11/07/2024 Refill [facility] - Hematology/Oncology [address] [place] [phone] Wai Tse MD Refill Request 11/07/2024 Telephone [facility] - Hematology/Oncology [address] [place] [phone] Kelly Coates APRN-NATIONAL SALES CONSULTANT Follow-up 11/07/2024 Orders Only [facility] - Hematology/Oncology [address] [place] [phone] Kelly Coates SOCIAL MEDIA MARKETING MANAGER-NATIONAL SALES CONSULTANT Proteinuria, unspecified type ; Metastatic renal cell carcinoma, unspecified laterality from Last 3 Months Immunizations Name Administration Dates Next Due Covid [email or web address] primary monoval ent 12+ yr 0.3mL Purple [...] Comments Blood Pressure 149/87 01/13/2025 9:11 AM TAPE SEWER Pulse 68 01/13/2025 9:11 AM TAPE SEWER Temperature 36.8 C (98.3 F) 01/13/2025 9:11 AM TAPE SEWER Respiratory Rate 18 12/23/2024 9:05 AM TAPE SEWER Oxygen Saturation 98% 01/13/2025 9:11 AM TAPE SEWER Inhaled Oxygen Concentration - - Weight 90.8 kg (200 lb 3.2 oz) 01/13/2025 9:11 A M TAPE SEWER Height 165.1 cm (5' 5 ) 01/13/2025 9:11 AM TAPE SEWER Body Mass Index 33.32 01/13/2025 9:11 AM TAPE SEWER Plan of Treatment Upcoming Encounters Date Type Department Care Team (Late st Contact Info) Description 03/23/2025 1:40 PM CDT Office Visit [facility] - Hematology/Oncology [address] [place] [phone] Wai Tse MD [address] [place] [address] OF HEMATOLOGY & [place] [address] 04/02/2025 10:00 AM CDT Appointment [facility] CAT SCAN [address] [place] [phone] Ronnie Mcqueen MD [address] [place] [address] 04/07/2025 9:30 AM CDT Appointment [facility] RAD ONC [address] [place] [address] Ronnie Mcqueen MD [facility] [place], [place] [phone] 07/14/2025 9:00 AM CDT Office Visit [facility] - Nephrology [address] [facility], [facility] [place] [phone] Tito Schwartz MD [address] [place] [address] Health Maintenance Due Date Last Done Comments [...] Medication Management General On track( 9:04 AM TAPE SEWER) No Adeola Julio, RN Note: Expected end date: ongoing Interventions: Take all medications as prescribed Safety General On track( 9:04 AM TAPE SEWER) No Nakita Kelly, SHOSHANA Note: Expected end [...] follow-up appointments General On track( 11:58 AM TAPE SEWER) No Nakita Kelly, site damage prevention technician Procedure Name Priority Date/Time Associated Diagnosis Comments PROTEIN URINE TIMED QUANTITATIVE Routine 01/30/2025 8:00 AM CDT Proteinuria, unspecified type US RETROPERITONEAL COMPLETE Routine 01/02/2025 1:56 PM TAPE SEWER Proteinuria, unspecified type Metastatic renal cell carcinoma, unspecified laterality URINALYSIS NO MICROSCOPIC NO CULTURE STAT 12/22/2024 1:06 PM TAPE SEWER Malignant neoplasm of kidney excluding renal pelvis, unspecified laterality CBC W AUTO DIFFERENTIAL STAT 12/22/19 1:06 PM TAPE SEWER Malignant neoplasm of kidney excluding renal pelvis, unspecified laterality URINALYSIS REFLEX TO MICROSCOPIC NO CULTURE Routine 12/18/2024 9:52 AM TAPE SEWER Proteinuria, unspecified type Metastatic renal cell carcinoma, unspecified laterality PROTEIN CREATININE RATIO URINE RANDOM PNL Routine 12/18/2024 9:52 AM TAPE SEWER Proteinuria, unspecified type Metastatic renal cell carcinoma, unspecified laterality SYPHILIS (T PALLIDUM) DONOR Routine 12/18/2024 9:51 AM TAPE SEWER Proteinuria, unspecified type Metastatic renal cell carcinoma, unspecified laterality REF LAB-SPECIMEN STATUS REPORT Routine 12/18/2024 9:51 AM TAPE SEWER Proteinuria, unspecified type Metastatic renal cell carcinoma, unspecified laterality IMMUNOFIXATION BLOOD Routine 12/18/2024 9:51 AM TAPE SEWER Proteinuria, unspecified type KAPPA/LAMBDA LITE CHAIN FREE PANEL Routine 12/18/2024 9:51 AM TAPE SEWER Proteinuria, unspecified type GLOMERULAR BASE MEMBRANE ANTIBODY IGG Routine 12/18/2024 9:51 AM TAPE SEWER Proteinuria, unspecified type Metastatic renal cell carcinoma, unspecified laterality PHOSPHOLIPASE A2 RECEPTOR AB IGG RFLX TITER Routine 12/18/2024 9:51 AM TAPE SEWER Proteinuria, unspecified type Metastatic renal cell carcinoma, unspecified laterality ANCA VASCULITIS PANEL Routine 12/18/2024 9:51 AM TAPE SEWER Proteinuria, unspecified type Metastatic renal cell carcinoma, unspecified laterality CHERYL BLOOD SCREEN W/REFLEX TITER Routine 12/18/2024 9:51 AM TAPE SEWER Proteinuria, unspecified type Metastatic renal cell carcinoma, unspecified laterality COMPLEMENT C4 Routine 12/18/2024 9:51 AM TAPE SEWER Proteinuria, unspecified type Metastatic renal cell carcinoma, unspecified laterality COMPLEMENT C3 Routine 12/18/2024 9:51 AM TAPE SEWER Proteinuria, unspecified type Metastatic renal cell carcinoma, unspecified laterality TREPONEMA PALLIDUM AB IGG DONOR Routine 12/18/2024 9:51 AM TAPE SEWER Proteinuria, unspecified type Metastatic renal cell carcinoma, unspecified laterality HIV-1 HIV-2 ANTIBODY + HIV P24 AG PANEL Routine 12/18/2024 9:51 AM TAPE SEWER Proteinuria, unspecified type Metastatic renal cell carcinoma, unspecified laterality CBC W/O DIFFERENTIAL Routine 12/18/2024 9:51 AM TAPE SEWER Proteinuria, unspecified type Metastatic renal cell carcinoma, unspecified laterality RENAL FUNCTION PANEL Routine 12/18/2024 9:51 AM TAPE SEWER Proteinuria, unspecified type Metastatic renal cell carcinoma, unspecified laterality DNA ANTIBODY DOUBLE STRANDED Routine 12/18/2024 9:51 AM TAPE SEWER Proteinuria, unspecified type Metastatic renal cell carcinoma, unspecified laterality CT CHEST ABDOMEN PELVIS W CONT Routine 12/18/2024 9:15 AM TAPE SEWER 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 CREATININE - POCT INTERFACED Routine 12/18/2024 9:02 AM TAPE SEWER HEPATITIS C RNA QUANTITATIVE Routine 03/17/2021 10:19 [...] - 02/03/2025 10:10 AM CDT Performed at: [facility] [id number] Chief Counsel: Alejandro Doshi PhD, Phone: [phone] Tito Schwartz MD LAB - URINE CHEMISTR Y ORDERABLES [facility] ACCOUNT [place] [address] * US Retroperitoneal Complete (01/02/2025 1:56 PM TAPE SEWER) Anatomical Region Laterality Modality Abdomen Ultrasound 01/02/2025 3:48 PM TAPE SEWER Impressions 01/02/2025 4:32 PM TAPE SEWER IMPRESSION: Mild left calyectasis. Right kidney surgically absent. No renal calculus or solid renal mass in the left kidney > Dictated by Dimitris Sewell MD, (pharmacy resident). I, Devan Acevedo MD have personally reviewed and interpreted this examination/study. > Interpreting Provider: Devan Acevedo MD on 01/02/2025 4:32 PM Narrative 01/02/2025 4:32 PM TAPE SEWER PROCEDURE: US RETROPERITONEAL COMPLETE, DATE/TIME OF EXAM: 01/02/2025 1:56 PM, LOCATION [facility] INDICATION: R80.9: Proteinuria, unspecified type C64.9: Metastatic [...] COMPLETE, DATE/TIME OF EXAM: 51:56 PM, LOCATION [facility] INDICATION: R80.9: Proteinuria, unspecified type C64.9: Metastatic [...] kidney > Dictated by Dimitris Sewell MD, (pharmacy resident). I, Devan Acevedo MD have personally reviewed and interpreted this examination/study. > Interpreting Provider: Devan Acevedo MD on 01/02/2025 4:32 PM Tito Schwartz MD ORDERABLES * (ABNORMAL) URINALYSIS NO MICROSCOPIC NO CULTURE (12/22/2024 1:06 PM TAPE SEWER) Color UA Straw Straw, Yellow 12/22/2024 1:54 PM [facility] Clarity UA Clear Clear 12/22/2024 1:54 PM [facility] Specific [place] UA 1.002(L) 1.005 - 1.030 12/22/2024 1:54 PM [facility] pH UA 6.0 5.0 - 8.0 pH 12/22/2024 1:54 PM [facility] Protein UA 2+(A) Negative 12/22/2024 1:54 PM [facility] Glucose UA 3+(A) Negative 12/22/2024 1:54 PM [facility] Ketone UA Negative Negative 12/22/2024 1:54 PM [facility] Bilirubin UA Negative Negative 12/22/2024 1:54 PM [facility] Blood UA Negative Negative 12/22/2024 1:54 PM [facility] Nitrite UA Negative Negative 12/22/2024 1:54 PM [facility] Leukocyte Esterase Negative Negative 12/22/2024 1:54 PM [facility] Urobilinogen UA Negative Negative mg/dL 12/22/2024 1:54 PM [facility] Urine URINE SPECIMEN OBTAINED BY CLEAN CATCH PROCEDURE / Unknown Collection / Unknown 12/22/2024 1:06 PM [facility] 12/22/2024 1:39 PM TAPE SEWER [facility] - 12/22/2024 1:54 PM TAPE SEWER Wai Tse MD LAB - URINALYSIS ORD ERABLES [facility] [address] [place] [address], [facility] [phone] * (ABNORMAL) CBC W AUTO DIFFERENTIAL (12/22/2024 1:06 PM TAPE SEWER) WBC 6.5 4.0 - 10.7 x10E9/L 12/22/2024 2:15 PM [facility] RBC Count 4.80 3.90 - 5.20 x10E12/L 12/22/2024 2:15 PM [facility] Hemoglobin 15.9(H) 11.9 - 15.8 g/dL 12/22/2024 2:15 PM [facility] Hematocrit 45.6 34.8 - 46.1 % 12/22/2024 2:15 PM [facility] MCV 95.0 80.0 - 98.0 fL 12/22/2024 2:15 PM [facility] MCH 33.1 26.7 - 33.6 pg 12/22/2024 2:15 PM [facility] MCHC 34.9 31.7 - 36.3 g/dL 12/22/2024 2:15 PM [facility] RDW-CV 13.3 11.3 - 14.8 % 12/22/2024 2:15 PM [facility] Platelet Count 274 150 - 420 x10E9/L 12/22/2024 2:15 PM [facility] MPV 10.2 7.8 - 11.4 fL 12/22/2024 2:15 PM [facility] Preliminary Absolute Neutrophil 4.40 1.60 - 7.50 x10E9/L 12/22/2024 2:15 PM [facility] Neutrophil % 68.0 41.0 - 74.0 % 12/22/2024 2:15 PM [facility] Lymphocyte % 21.0 17.0 - 47.0 % 12/22/2024 2:15 PM [facility] Monocyte % 7.4 3.0 - 11.0 % 12/22/2024 2:15 PM [facility] Eosinophil % 2.8 0.0 - 7.0 % 12/22/2024 2:15 PM [facility] Basophil % 0.5 0.0 - 1.6 % 12/22/2024 2:15 PM [facility] Immature Granulocytes % 0.3 0.0 - 1.0 % 12/22/2024 2:15 PM [facility] Neutrophil Absolute 4.40 1.60 - 7.50 x10E9/L 12/22/2024 2:15 PM [facility] Lymphocyte Absolute 1.36 1.00 - 4.40 x10E9/L 12/22/2024 2:15 PM [facility] Monocyte Absolute 0.48 0.15 - 1.00 x10E9/L 12/22/2024 2:15 PM [facility] Eosinophil Absolute 0.18 0.00 - 0.60 x10E9/L 12/22/2024 2:15 PM [facility] Basophil Absolute 0.03 0.00 - 0.13 x10E9/L 12/22/2024 2:15 PM [facility] Blood BLOOD SPECIMEN / Unknown Venipuncture / Unknown 12/22/2024 1:06 PM TAPE SEWER 12/22/2024 2:09 PM [facility] Wai Tse MD LAB - HEMATOLOGY ORD ERABLES Performing Organization Address City/State/[facility] Co de Phone Number [facility] [address] [place] [address], [facility] [phone] * (ABNORMAL) URINALYSIS REFLEX TO MICROSCOPIC NO CULTURE (12/18/2024 9:52 AM TAPE SEWER) Color UA Yellow Straw, Yellow 12/18/2024 10:37 AM [facility] Clarity UA Clear Clear 12/18/2024 10:37 AM [facility] Specific [place] UA 1.003(L) 1.005 - 1.030 12/18/2024 10:37 AM [facility] pH UA 6.0 5.0 - 8.0 pH 12/18/2024 10:37 AM [facility] Protein UA 2+(A) Negative 12/18/2024 10:37 AM [facility] Glucose UA 3+(A) Negative 12/18/2024 10:37 AM [facility] Ketone UA Negative Negative 12/18/2024 10:37 AM [facility] Bilirubin UA Negative Negative 12/18/2024 10:37 AM [facility] Blood UA Negative Negative 12/18/2024 10:37 AM [facility] Nitrite UA Negative Negative 12/18/2024 10:37 AM [facility] Leukocyte Esterase Negative Negative 12/18/2024 10:37 AM [facility] Urobilinogen UA Negative Negative mg/dL 12/18/2024 10:37 AM [facility] RBC UA 3-5 None Seen, 0-2, 3-5 /HPF 12/18/2024 10:37 AM [facility] WBC UA 0-5 None Seen, 0-5 /HPF 12/18/2024 10:37 AM [facility] Bacteria UA Trace(A) None /HPF 12/18/2024 10:37 AM [facility] Squamous Epithelial Cells UA 0-2 None Seen, 0-2, 3-5 /HPF 12/18/2024 10:37 AM [facility] Mucus UA 1+ /LPF 12/18/2024 10:37 AM [facility] Urine URINE SPECIMEN OBTAINED BY CLEAN CATCH PROCEDURE / Unknown Collection / Unknown 12/18/2024 9:52 AM [facility] 12/18/2024 10:[address] [facility] - 12/18/2024 10:37 AM [facility] Tito Schwartz MD LAB - URINALYSIS ORD ERABLES [facility] [address] [place] [address], [facility] [phone] * (ABNORMAL) PROTEIN CREATININE RATIO URINE RANDOM PNL (12/18/2024 9:52 AM [facility]) Protein Urine 102 Not Established mg/dL 12/18/2024 11:08 AM TAPE SEWER [facility] Creatinine Urine 33.98 Not Established mg/dL 12/18/2024 11:08 AM TAPE SEWER [facility] Protein/Creati nine Ratio Urine 3.00(H) <0.10 12/18/2024 11:08 AM TAPE SEWER [facility]OR[facility] Urine URINE SPECIMEN OBTAINED BY CLEAN CATCH PROCEDURE / Unknown Collection / Unknown 12/18/2024 9:52 AM TAPE SEWER 12/18/2024 10:15 AM TAPE SEWER Tito Schwartz MD LAB - URINE CHEMISTR Y ORDERABLES [facility] [address] [place] [address], [facility] [phone] * TREPONEMA PALLIDUM AB IGG DONOR (12/18/2024 9:51 AM TAPE SEWER) Donor Syphilis (T pallidum) see scanned report 01/15/2025 8:01 AM TAPE SEWER [facility] ([facility]) Blood BLOOD SPECIMEN / Unknown Lab Venipuncture / Unknown 12/18/2024 9:51 AM TAPE SEWER 12/18/2024 10:16 AM TAPE SEWER Tito Schwartz MD LAB - SEROLOGY ORDER HARJINDER Performing Organization Address City/[facility]/ZIP Co de Phone Number [facility] ([facility]) [address] [place] [address] * SYPHILIS (T PALLIDUM) DONOR (12/18/2024 9:51 AM TAPE SEWER) Donor Syphilis (T pallidum) Non Reactive Non Reactive 12/27/2024 7:08 PM TAPE SEWER [facility] ([facility]) Comment: Test performed with [employer] Syphilis (T pallidum)-G kit. Blood BLOOD SPECIMEN / Unknown Lab Venipuncture / Unknown 12/18/2024 9:51 AM TAPE SEWER 12/18/2024 10:16 AM TAPE SEWER Narrative [facility] ([facility]) - 12/27/2024 7:08 PM TAPE SEWER Performed at: 01 - [employer] [address] [place] [id number] Chief Counsel: Jon Pinedo [facility], Phone: [phone] Tito Schwartz MD LAB - CHEMISTRY HELENA LANDA [facility] ([facility]) [address] [place] [address], [facility] * PHOSPHOLIPASE A2 RECEPTOR AB IGG RFLX TITER (12/18/2024 9:51 AM TAPE SEWER) Pathologist [facility] Phospholipase A2 Receptor IgG <1:10 <1:10 12/20/2024 4:22 PM TAPE SEWER [facility] ([facility]) Comment: Phospholipase A2 Receptor Antibody, IgG is not detected. No further testing will be performed. Performed By: [facility] [address] [place] [address] Mat Packer: Tucker Hernandez MD, PhD CLIA Number: [id number] Blood BLOOD SPECIMEN / Unknown Lab Venipuncture / Unknown 12/18/2024 9:51 AM TAPE SEWER 12/18/2024 10:16 AM TAPE SEWER Tito Schwartz MD LAB - CHEMISTRY HELENA LANDA Performing Organization Address [facility] Co de Phone Number [facility] ([facility]) [address] [place] [phone] [place] [address] * HIV-1 HIV-2 ANTIBODY + HIV P24 AG PANEL (12/18/2024 9:51 AM TAPE SEWER) Pathologist [facility] HIV Antigen/Antibod y 1 & 2 Non-reacti ve Non-react nafisa 12/18/2024 11:31 AM TAPE SEWER [facility] Comment:No Laboratory eviden ce of HIV infection. Blood BLOOD SPECIMEN / Unknown Lab Venipuncture / Unknown 12/18/2024 9:51 AM TAPE SEWER 12/18/2024 10:16 AM TAPE SEWER Tito Schwartz MD LAB - CHEMISTRY HELENA LANDA [facility]OR[facility]ORY [address] [address], [place] [phone] * REF LAB-SPECIMEN STATUS REPORT (12/18/2024 9:51 AM TAPE SEWER) [facility] Specimen Status Report Comment 12/22/2024 5:07 PM TAPE SEWER [facility] ([facility]) Comment: Written Authorization Written Authorization Written Authorization Received. Authorization received from [employer] 12-22-2024 Logged by Faye Villafana Blood BLOOD SPECIMEN / Unknown Lab Venipuncture / Unknown 12/18/2024 9:51 AM TAPE SEWER 12/18/2024 10:16 AM TAPE SEWER Narrative [facility] ([facility]) - 12/22/2024 5:07 PM TAPE SEWER Performed at: [facility] [id number] Chief Counsel: Alejandro Doshi PhD, Phone: [phone] Tito Schwartz MD LAB - CHEMISTRY HELENA LANDA Performing Organization Address City/[facility]/ZIP Co de Phone Number [facility] ([facility]) [address] [place] [address] * IMMUNOFIXATION BLOOD (12/18/2024 9:51 AM TAPE SEWER) [facility] Immunofixation Serum Normal Pattern Normal Pattern 12/19/2024 3:30 PM TAPE SEWER [facility] Comment: No monoclonal immunoglobulin detected by serum immunosubtraction. Margie Rinaldi PhD, [facility] Clinical Field Crew Chief stereotype caster *The electrophoresis pattern and the interpretation have been reviewed and verified by the teaching physician. Blood BLOOD SPECIMEN / Unknown Lab Venipuncture / Unknown 12/18/2024 9:51 AM TAPE SEWER 12/18/2024 10:16 AM TAPE SEWER Tito Schwartz MD LAB - CHEMISTRY HELENA LANDA Performing Organization Address City/[facility]/ZIP Co de Phone Number [address] [address], [facility] [phone] * ANCA VASCULITIS PANEL (12/18/2024 9:51 AM TAPE SEWER) Myeloperoxidase Antibody 0 0 - 19 AU/mL 12/21/2024 12:18 PM TAPE SEWER [facility] ([facility]) Comment: INTERPRETIVE INFORMATION: Myeloperoxidase Abs, IgG 19 AU/mL or Less ......... Negative 20-25 AU/mL .............. Equivocal 26 AU/mL or Greater ...... Positive Approximately 90% of patients with a P-ANCA pattern by IFA have antibodies specific for MPO. Serine Proteinase 3 IgG 3 0 - 19 AU/mL 12/21/2024 12:18 PM TAPE SEWER [facility] ([facility]) Comment: INTERPRETIVE INFORMATION: Serine Proteinase 3, IgG 19 AU/mL or Less ........ Negative 20-25 AU/mL ............. Equivocal 26 AU/mL or Greater ..... Positive Approximately 85% of patients with a C-ANCA pattern by IFA have antibodies specific for PR3. ANCA Titer IFA <1:20 <1:20 12/21/2024 12:18 PM TAPE SEWER [facility] ([facility]) ANCA Pattern IFA None Detected None Detected 12/21/2024 12:18 PM TAPE SEWER [facility] ([facility]) Comment: INTERPRETIVE INFORMATION: ANCA IFA Pattern Neutrophil Cytoplasmic Antibodies (C-ANCA = granular cytoplasmic staining, P-ANCA = perinuclear staining) are found in the serum of over 90 percent of patients with certain necrotizing systemic vasculitides, and usually in less than 5 percent of patients with collagen vascular disease or arthritis. Performed By: [facility] [address] [place] [address] Mat Packer: Tucker Hernandez MD, PhD CLIA Number: [id number] Blood BLOOD SPECIMEN / Unknown Lab Venipuncture / Unknown 12/18/2024 9:51 AM TAPE SEWER 12/18/2024 10:55 AM TAPE SEWER Tito Schwartz MD LAB - CHEMISTRY HELENA LANDA [facility] [employer] [facility]) [address] [place] [address] * CHERYL BLOOD SCREEN W/REFLEX TITER (12/18/2024 9:51 AM TAPE SEWER) CHERYL IgG None Detected None Detected 12/20/2024 5:47 AM TAPE SEWER [facility] ([facility]) Comment: If suspicion of connective tissue disease is strong and CHERYL EIA is negative, consider testing for CHERYL by IFA ([id number]). INTERPRETIVE INFORMATION: Anti-Nuclear Antibodies (CHERYL), IgG by ERNESTO Antinuclear Antibodies (CHERYL), IgG by ERNESTO: CHERYL specimens are screened using enzyme-linked immunosorbent assay (ERNESTO) methodology. All ERNESTO results reported as Detected are further tested by indirect fluorescent assay (IFA) using HEp-2 substrate with an IgG-specific conjugate. The CHERYL ERNESTO screen is designed to detect antibodies against dsDNA, histones, SS-A (Ro), SS-B (La), Richey, Richey/WEIGHMASTER LEAD, Scl-70, More-1, centromeric proteins, other antigens extracted from the HEp-2 cell nucleus. CHERYL ERNESTO assays have been reported to have lower sensitivities than CHERYL IFA for systemic autoimmune rheumatic diseases (SARD). Negative results do not necessarily rule out SARD. Performed By: [facility] [address] [place] [address] Mat Packer: Tucker Hernandez MD, PhD CLIA Number: [id number] Blood BLOOD SPECIMEN / Unknown Lab Venipuncture / Unknown 12/18/2024 9:51 AM TAPE SEWER 12/18/2024 10:16 AM TAPE SEWER Tito Schwartz MD LAB - CHEMISTRY ORDE [facility] Organization Address City/State/ZIP Co de Phone Number [facility] [employer] [facility]) [address] [place] [address] * GLOMERULAR BASE MEMBRANE ANTIBODY IGG (12/18/2024 9:51 AM TAPE SEWER) [facility] GBM Antibody IgG (EU) 0 0 - 19 AU/mL 12/21/2024 12:22 PM TAPE SEWER [facility] ([facility]) Comment: INTERPRETIVE INFORMATION: GBM Ab, IgG by [...] and assessment of renal prognosis. Performed By: [facility] [facility] [address] [place] [address] Mat Packer: Tucker Hernandez MD, PhD CLIA Number: [id number] Blood BLOOD SPECIMEN / Unknown Lab Venipuncture / Unknown 12/18/2024 9:51 AM TAPE SEWER 12/18/2024 10:16 AM TAPE SEWER Tito Schwartz MD LAB - CHEMISTRY HELENA LANDA [facility] ([facility]) [address] [place] [address], [facility] * DNA ANTIBODY DOUBLE STRANDED (12/18/2024 9:51 AM TAPE SEWER) dsDNA Antibody 10 0 - 24 IU 12/20/2024 12:22 AM TAPE SEWER [facility] [employer] ([facility]) Comment: INTERPRETIVE INFORMATION: Double-Stranded DNA (dsDNA) Ab IgG ERNESTO 24 IU or less........Negative 25-30 IU.............Borderline Positive 30-60 IU.............Low Positive 60-200 IU............Positive 201 IU or greater....Strong Positive Positivity for anti-double stranded DNA (anti-dsDNA) IgG antibody is a diagnostic criterion of systemic lupus erythematosus (SLE). Specimens are initially screened by enzyme-linked immunosorbent assay (ERNESTO). If ordered as reflex ([id number]), positive ERNESTO results (>24 IU) will be [...] recommendations for testing may be found at [email or web address]. Performed by [facility] [address] [place] [address] [email or web address], Balaji Torres MD, Lab. Director CLIA Number: [id number] Blood BLOOD SPECIMEN / Unknown Lab Venipuncture / Unknown 12/18/2024 9:51 AM TAPE SEWER 12/18/2024 10:16 AM TAPE SEWER Tito Schwartz MD LAB - HEMATOLOGY ORD ERABLES [facility]) [address] [place] [address] * (ABNORMAL) KAPPA/LAMBDA LITE CHAIN FREE PANEL (12/18/2024 9:51 AM TAPE SEWER) [employer] Quant Free Light Chain 20.59(H) 3.30 - 19.40 mg/L 12/20/2024 5:06 AM TAPE SEWER [employer] ([facility]) Comment: INTERPRETIVE INFORMATION: [employer] Qnt Free Light Chains Undetected antigen excess is a rare event but cannot be excluded. Free light chain results should always be interpreted in conjunction with other clinical and laboratory findings. Lambda Free Light Chain Quantitative 16.76 5.71 - 26.30 mg/L 12/20/2024 5:06 AM TAPE SEWER [employer] ([facility]) Comment: INTERPRETIVE INFORMATION: Lambda Qnt Free Light Chains Undetected antigen excess is a rare event but cannot be excluded. Free light chain results should always be interpreted in conjunction with other clinical and laboratory findings. [employer]/Lambda Free Light Chain ratio 1.23 0.26 - 1.65 12/20/2024 5:06 AM TAPE SEWER [employer] ([facility]) Comment: Performed By: [employer] [address] [place] [address] Mat Packer: Tucker Hernandez MD, PhD CLIA Number: [id number] Blood BLOOD SPECIMEN / Unknown Lab Venipuncture / Unknown 12/18/2024 9:51 AM TAPE SEWER 12/18/2024 10:16 AM TAPE SEWER Tito Schwartz MD LAB - CHEMISTRY ORDE CORDELL [facility] ([facility]) [address] [place] [address], [facility] * CBC W/O DIFFERENTIAL (12/18/2024 9:51 AM TAPE SEWER) WBC 4.8 4.0 - 10.7 x10E9/L 12/18/2024 10:45 AM [facility] RBC Count 4.80 3.90 - 5.20 x10E12/L 12/18/2024 10:45 AM [facility] Hemoglobin 15.6 11.9 - 15.8 g/dL 12/18/2024 10:45 AM [facility] Hematocrit 45.8 34.8 - 46.1 % 12/18/2024 10:45 AM [facility] MCV 95.4 80.0 - 98.0 fL 12/18/2024 10:45 AM [facility] MCH 32.5 26.7 - 33.6 pg 12/18/2024 10:45 AM [facility] MCHC 34.1 31.7 - 36.3 g/dL 12/18/2024 10:45 AM [facility] RDW-CV 13.4 11.3 - 14.8 % 12/18/2024 10:45 AM [facility] Platelet Count 225 150 - 420 x10E9/L 12/18/2024 10:45 AM [facility] MPV 9.9 7.8 - 11.4 fL 12/18/2024 10:45 AM [facility] Blood BLOOD SPECIMEN / Unknown Lab Venipuncture / Unknown 12/18/2024 9:51 AM TAPE SEWER 12/18/2024 10:35 AM TAPE SEWER Tito Schwartz MD LAB - HEMATOLOGY ORD ERABLES [facility] [address] [place] [address], [facility] [phone] * COMPLEMENT C4 (12/18/2024 9:51 AM TAPE SEWER) Complement C4 43 15 - 57 mg/dL 12/18/2024 11:09 AM [facility] Blood BLOOD SPECIMEN / Unknown Lab Venipuncture / Unknown 12/18/2024 9:51 AM TAPE SEWER 12/18/2024 10:34 AM TAPE SEWER Tito Schwartz MD LAB - SEROLOGY ORDER HARJINDER [facility] [address] [place] [address], [facility] [phone] * (ABNORMAL) RENAL FUNCTION PANEL (12/18/2024 9:51 AM TAPE SEWER) BUN 11 7 - 26 mg/dL 12/18/2024 11:09 AM [facility] Creatinine 0.93 0.56 - 0.96 mg/dL 12/18/2024 11:09 AM [facility] Sodium 138 136 - 145 mmol/L 12/18/2024 11:09 AM [facility] Potassium 3.6 3.5 - 4.5 mmol/L 12/18/2024 11:09 AM [facility] Chloride 103 98 - 107 mmol/L 12/18/2024 11:09 AM [facility] CO2 23 22 - 29 mmol/L 12/18/2024 11:09 AM [facility] Glucose 85 70 - 99 mg/dL 12/18/2024 11:09 AM [facility] Albumin 4.3 3.4 - 5.0 g/dL 12/18/2024 11:09 AM [facility] Calcium 10.4(H) 8.4 - 10.2 mg/dL 12/18/2024 11:09 AM [facility] Phosphorus 3.3 2.9 - 5.1 mg/dL 12/18/2024 11:09 AM [facility] Anion Gap 12 6 - 16 12/18/2024 11:09 AM [facility] BUN/Creatinine Ratio 12 7 - 23 12/18/2024 11:09 AM [facility] Osmolality Calculated 285 275 - 295 mOsm/kg 12/18/2024 11:09 AM [facility] eGFR by CKD-EPI 68(L) >=90 mL/min/1.7 3 m2 12/18/2024 11:09 AM TAPE SEWER [facility] Blood BLOOD SPECIMEN / Unknown Lab Venipuncture / Unknown 12/18/2024 9:51 AM TAPE SEWER 12/18/2024 10:34 AM TAPE SEWER Tito Schwartz MD LAB - CHEMISTRY ORDDanielle LANDA [facility] [address] [place] [address], [facility] [phone] * COMPLEMENT C3 (12/18/2024 9:51 AM TAPE SEWER) Complement C3 161 82 - 193 mg/dL 12/18/2024 11:09 AM TAPE SEWER [facility] Blood BLOOD SPECIMEN / Unknown Lab Venipuncture / Unknown 12/18/2024 9:51 AM TAPE SEWER 12/18/2024 10:34 AM TAPE SEWER Tito Schwartz MD LAB - CHEMISTRY HELENA LANDA Performing Organization Address City/[facility]/ZIP Co de Phone Number [facility] [address] [place] [address], [facility] [phone] * CT Chest Abdomen Pelvis W Cont (12/18/2024 9:15 AM TAPE SEWER) Anatomical Region Laterality Modality Chest, Abdomen, Pelvis Computed Tomography 12/18/2024 9:27 AM TAPE SEWER Impressions 12/18/2024 10:32 AM TAPE SEWER Impression: 1.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 2.No evidence of metastatic disease within the chest, abdomen, or pelvis. > Dictated by Florentino Duncan MD, (pharmacy resident). I, Maribel Reyes MD have personally reviewed and interpreted this examination/study. > Interpreting Provider: Maribel Reyes MD on 12/18/2024 10:32 AM Narrative 12/18/2024 10:32 AM TAPE SEWER PROCEDURE: CT CHEST ABDOMEN PELVIS W CONT, DATE/TIME OF EXAM: 12/18/2024 9:16 AM, LOCATION [facility] INDICATION: C78.02: Malignant neoplasm metastatic to left [...] DATE/TIME OF EXAM: 12/18/2024 9:16 AM, LOCATION [facility] INDICATION: C78.02: Malignant neoplasm metastatic to left [...] orpelvis. > Dictated by Florentino Duncan MD, (pharmacy resident). I, Maribel Reyes MD have personally reviewed and interpreted this examination/study. > Interpreting Provider: Maribel Reyes MD on 0:32 AM [address]nie Mcque[address] MD [address] ORDERABLES * (ABNORMAL) CREATININE - POCT INTERFACED (12/18/2024 9:02 AM TAPE SEWER) [facility] Creatinine POCT 0.75 0.30 - 1.30 mg/dL 12/18/2024 9:08 AM TAPE SEWER [facility] eGFR 88(L) >=90 mL/min/1.7 3 m2 12/18/2024 9:08 AM [facility] Blood BLOOD SPECIMEN / Unknown 12/18/2024 9:02 AM TAPE SEWER 12/18/2024 9:08 AM TAPE SEWER Ronnie Mcqueen MD LAB - POINT OF CARE ORDERABLES Performing Organization Address City/State/[facility] Co de Phone Number [facility] [address] [place] [address], [facility] [phone] * HEPATITIS C RNA QUANTITATIVE (03/17/2021 10:19 AM CDT) [facility] Hepatitis C RNA PCR, Interp Not detected Not detected 03/21/2021 3:48 PM CDT [facility] Blood BLOOD SPECIMEN / Unknown Lab Venipuncture / Unknown 03/17/2021 10:19 AM CDT 03/17/2021 10:35 AM CDT Narrative [facility] - 03/21/2021 3:48 PM CDT The Hepatitis C viral (HCV) RNA analysis utilized a serum sample, real-time reverse storekeeper engineering PCR, and is reported as Not Detected, [...] the isolation of HCV RNA with reverse storekeeper engineering of genomic HCV RNA followed by real-time PCR in the presence of an unrelated RNA internal control. The internal control ensures that RNA is isolated, and that no general significant inhibitors of the RT-PCR process are present. The analysis was performed using a U.S. FDA approved test methodology (Pathbrite Real Time HCV). Jessica Padron SOCIAL MEDIA MARKETING MANAGER-NATIONAL SALES CONSULTANT LAB - CHEMIS TRY ORDERABLES [facility] [address] [place] [address], [facility] [phone] from Last 3 Months or Most Recently Relevant to Health Maintenance Advance Directives * Full Code (Latest Code Status on File) Date Activated Date Inactivated Comments 01/01/2020 1:07 PM 01/02/2020 11:33 AM Care Teams Patent Lawyer Relationship Specialty Start Date End Date Myriam Jorgensen MD [address] [place] [address] PCP - General 10/16/22 Nakita Kelly, RN Registered Nurse Hepatology 01/13/25 Tito Schwartz MD [address] OF [facility] INTERNAL MEDICINE [place], [place] Nephrology 01/13/25
--- OUTSIDE RECORDS SUMMARY | 2025-02-05 07:42 | XMS_ITS ---
Author Organization [facility] Address [address] [facility] [place] [address] Care Team Providers Care Retail Operations Manager Name Role Phone Myriam Jorgensen MD Primary Care Provider [phone] Nakita Kelly RN Unavailable Unavailable Tito Schwartz MD Unavailable [phone] Active Problems Problem Noted Date Diagnosed Date Gilbert syndrome 06/27/2022 Elevated liver enzymes 03/17/2021 Cancer, metastatic to lung 11/03/2019 Nonspecific abnormal electrocardiogram (ECG) (EK G) 11/03/2019 S/p nephrectomy 09/23/2019 Primary osteoarthritis of right hip 06/02/2019 Overview (03/17/2021): Added automatically from request for surgery [id number] Personal history of malignant neoplasm of breast [...]
--- OUTSIDE RECORDS SUMMARY | 2025-02-05 07:42 | XMS_ITS | Encounter Summary ---
Author Organization [facility] Address [address] [place] [address] Care Team Providers Care Campus Ambassador Name Role Phone Myriam Jorgensen MD Primary Care Provider [phone] Nakita Kelly RN Unavailable Unavailable Tito Schwartz MD Unavailable [phone] Reason for Visit * Reason Onset Date Comments Results 02/04/2025 Encounter Details Date Type Department Care Team (Late st Contact Info) Description 02/04/2025 Telephone [facility] - Nephrology [address] [facility], [facility] [place] [id number] Tito Schwartz MD [address] [place] [address] Results Social History Tobacco Use Types Packs/Day Years [...] No 01/01/2020 documented as of this encounter Miscellaneous Notes * Telephone Encounter - Caridad Crowder RN - 02/04/2025 11:30 AM CDT Patient's 24 hour urine was done & turned in on 02/02. She would like talk to Dr Schwartz about her results. documented in this encounter Plan of Treatment Upcoming Encounters Date Type Department Care Team (Late st Contact Info) Description 03/23/2025 1:40 PM CDT Office Visit [facility] - Hematology/Oncology [address] [place] [phone] Wai Tse MD [address] [place] [address] OF HEMATOLOGY & [place] [address] 04/02/2025 10:00 AM CDT Appointment [facility] CAT SCAN [address] [place] [address] Ronnie Mcqueen MD [address] [place] [address] 04/07/2025 9:30 AM CDT Appointment [facility] RAD ONC [address] [place] [address] Ronnie Mcqueen MD [address] [place] [address] 07/14/2025 9:00 AM CDT Office Visit [facility] - Nephrology [address] [facility] [place] [address] Tito Schwartz MD [address] [place] [address] documented as of this encounter Goals Goal Patient Goal Type Associated Problems Recent Progress Patient-Stated? Author Medication Management General On track( 9:04 AM MALT [employer] SALES SUPERVISOR) Adeola Grant, RN Note: Expected end date: ongoing Interventions: Take all medications as prescribed Safety General On track( 9:04 AM MALT LIQUORS SALES SUPERVISOR) No Nakita Kelly RN Note: Expected end date: ongoing Interventions: [...] follow-up appointments General On track( 11:58 AM [employer] SALES SUPERVISOR) No Nakita Kelly, SHOSHANA documented as of this encounter Visit Diagnoses Not on filedocumented in this encounter Care Teams Campus Ambassador Relationship Specialty Start Date End Date Myriam Jorgensen MD [address] [place] [address] PCP - General 10/16/22 Nakita Kelly, RN Registered Nurse Hepatology 01/13/25 Tito Schwartz MD [address] [facility] 2[facility] DIV OF [facility] INTERNAL MEDICINE [place], [place] Nephrology 01/13/25 documented as of this encounter
--- OUTSIDE RECORDS SUMMARY | 2025-02-05 07:42 | XMS_ITS | Referral Summary ---
Author Organization [facility] Address [address] [place] [address] Care Team Providers Care 911 Telecommunicator Name Role Phone Marycarmen Ruiz MD Primary Care Provider [phone] Allergies No known active allergies Medications atorvastatin (LIPITOR) 10 mg tabletIndicatio ns:hyperlipidem ia Take 10 mg by mouth every morning 6 Active losartan (COZAAR) 100 mg tabletIndicatio ns:hypertension Take 100 mg by mouth every morning 6 Active levothyroxine (SYNTHROID) 25 mcg tablet Take 25 mcg by mouth dye house vat worker before breakfast Active amLODIPine (NORVASC) 10 mg tablet TK 1 T PO QD 0 Active Active Problems Problem Noted Date Diagnosed Date S/p nephrectomy 09/23/2019 Primary osteoarthritis of right hip 06/02/2019 Overview (06/02/2019): Added automatically from request for surgery [id number] Primary malignant neoplasm 02/01/2014 Other pulmonary embolism [...] on file Legal Sex Female 11:13 AM NETWORK CABLE INSTALLER Gender Identity Not on file Sexual Orientation Not on file Last Filed Vital Signs Vital Sign Reading Time Taken Comments Blood Pressure 127/58 09/24/2019 2:58 PM NETWORK CABLE INSTALLER Pulse 74 09/24/2019 2:58 PM NETWORK CABLE INSTALLER Temperature 36.8 C (98.2 F) 09/24/2019 11:27 AM NETWORK CABLE INSTALLER Respiratory Rate 18 09/24/2019 11:27 AM NETWORK CABLE INSTALLER Oxygen Saturation 96% 09/24/2019 2:58 PM NETWORK CABLE INSTALLER Inhaled Oxygen Concentration - - Weight 86.3 kg (190 lb 3.2 oz) 10/19/2020 9:55 A M NETWORK CABLE INSTALLER Height 161.3 cm (5' 3.5 ) 10/19/2020 9:55 AM NETWORK CABLE INSTALLER Body Mass Index 33.16 10/19/2020 9:55 AM NETWORK CABLE INSTALLER Plan of Treatment Not on file Medical Devices Implanted Type Area Load Out Person Device Identifier Shelf Expiration Date Model / Serial / Lot [employer] [id number] Screw Bone Trident Ii L25mm Od6.5mm Low Profile Hexagonal Sterile - S0 - [id number] Implanted:Qty: 1 on 09/23/2019 by Heber Whittaker MD at [facility] Screw Right: Hip [employer] [id number] 05/05/2024 8046-8243 / 0 / [id number] Description: Hip Left: Hip [employer] 8665-8573 Screw Bone Trident Ii L30mm Od6.5mm Low Profile Hexagonal Sterile - S0 - [id number] Implanted:Qty: 1 on 09/23/2019 by Heber Whittaker MD at [facility] Right: Hip [employer] [id number] 05/27/2024 6141-2468 / 0 / [id number] Description: [employer] 702-04-58f Shell Acetabular Trident Ii Tritanium F Od58mm Hip 5 Screw Hole Cluster Sterile - S0 - [id number] Implanted:Qty: 1 on 09/23/2019 by Heber Whittaker MD at [facility] Right: Hip [employer] [id number] 04/14/2024 702-04-58F / 0 / [id number] Description: [employer] 623-00-36f 36mm 7.9mm Hip 0d F Liner Acetabular X3 - S0 - [id number] Implanted:Qty: 1 on 09/23/2019 by Heber Whittaker MD at [facility] Right: Hip [employer] [id number] 06/14/2024 623-00-36F / 0 / [id number] Description: [employer] [id number] Accolade 102mm 30mm Modular Hip 127d 3 Taper Stem Femoral Sterile - S0 - [id number] Implanted:Qty: 1 on 09/23/2019 by Heber Whittaker MD at [facility] Right: Hip [employer] [id number] / 0 / [id number] Description: [employer] 6570-0-236 V40 36mm Anatomic Hip +5mm Offset Taper Head Femoral Biolox Delta - [id number] Implanted:Qty: 1 on 09/23/2019 by Heber Whittaker MD at [facility] Right: Hip [employer] [id number] 07/29/2024 6570-0-236 / / [id number] Description:kf Insurance [facility] CHO[facility] PLUS [facility] CHO[facility] PLUS Advance Directives For more information, please contact: [phone] * Full Code (Latest Code Status on File) Date Activated Date Inactivated Comments 09/23/2019 4:16 PM 09/24/2019 10:29 PM Care Teams 911 Telecommunicator Relationship Specialty Start Date End Date Marycarmen Ruiz MD PCP - General Family Practice 04/28/19
--- OUTSIDE RECORDS SUMMARY | 2025-02-05 07:42 | XMS_ITS | Encounter Summary ---
Author Organization [facility] Address [address] [facility] [place] [address] Care Team Providers Care Motor Pool Clerk Name Role Phone Marycarmen Pascal MD Primary [...] RN Unavailable Unavailable Tito Schwartz MD Unavailable [phone] Encounter Details Date Type Department Care Team (Late st Contact Info) Description 01/06/2020 Lab Requisition [facility] Pathology Lab [address] [place] [address] Johnie Mendiola MD [address] [place] [address] Social History Tobacco Use Types Packs/Day Years [...] Health System Physician Group - Hematology/Oncology [address] [place] [phone] Wai Tse MD [address] [place] [address] OF HEMATOLOGY & [place] [address] 04/02/2025 10:00 AM CDT Appointment [facility] CAT SCAN [address] [place] [address] Ronnie Mcqueen MD [address] [place] [address] 04/07/2025 9:30 AM CDT Appointment [facility] RAD ONC [address] [place] [address] Ronnie Mcqueen MD [address] [place] [address] 07/14/2025 9:00 AM CDT Office Visit [facility] - Nephrology [address] [facility], [place] [address] Tito Schwartz MD [address] [place] [address] documented as of this encounter Procedures Procedure Name Priority Date/Time Associated Diagnosis Comments SLIDE PREP HISTOLOGY Routine 01/01/2020 8:42 AM OIL SPOT WASHER documented in this encounter Results * SLIDE PREP HISTOLOGY (01/01/2020 8:42 AM OIL SPOT WASHER) Client Specimen ID # [id number] 01/07/2020 6:02 PM OIL SPOT WASHER [facility] LAB Number of Blocks Received 0 01/07/2020 6:02 PM OIL SPOT WASHER [facility] LAB Number of Slides 1 01/07/2020 6:02 PM OIL SPOT WASHER [facility] Number of Control Slides 1 01/07/2020 6:02 PM OIL SPOT WASHER [facility] Pathology/Cytolo gy BIOPSY OF LUNG / Unknown 01/01/2020 8:42 AM OIL SPOT WASHER 01/06/2020 3:30 PM OIL SPOT WASHER Johnie Baum MD LAB - PATHOLOGY/CYTO LOGY ORDERABLES [facility] LAB [address] [facility]. [address] [phone] documented in this encounter Visit Diagnoses Not on filedocumented in this encounter Care Teams Motor Pool Clerk Relationship Specialty Start Date End Date Marycarmen Pascal MD PCP - General 03/27/19 06/21/21 Myriam Jorgensen MD [address] [place] [address] PCP - General Family Medicine 06/22/21 09/03/21 Marycarmen Pascal MD PCP - General 09/04/21 10/18/21 Myriam Jorgensen MD [address] [place] [address] PCP - General Family Medicine 10/19/21 10/19/21 Marycarmen Pascal MD PCP - General 10/20/21 12/08/21 Myriam Jorgensen MD [address] [place] [address] PCP - General Family Medicine 12/09/21 10/11/22 Allyson Snowden PA [address] [place] [address] PCP - General Physician Pediatric Physiatrist 10/12/22 10/15/22 Myriam Jorgensen MD [address] [place] [address] PCP - General 10/16/22 Nakita Kelly, RN Registered Nurse Hepatology 01/13/25 Tito Schwartz MD [address] INTERNAL MEDICINE [place], [place] Nephrology 01/13/25 documented as of this encounter
== END 2025-02-05 07:37 | disposition home or self-care (01) ==
LOC: ANHIMG 07:39
PROVIDERS: PCP Family Medicine; Visit Provider Surgery
DX: R92.8 Other abnormal and inconclusive findings on diagnostic imaging of breast (principal); N63.11 Unspecified lump in the right breast, upper outer quadrant; Z85.3 Personal history of malignant neoplasm of breast
CPT/HCPCS: 19083; 76642; 77065; 88305; 88342; 88360; A4648

== ENCOUNTER 2025-03-06 11:23 | Outpatient (CLI) | payer OTHER, SELFPAY ==
--- NOTE | 2025-03-06 11:30 | ECG_ITS ---
Test Date: 2025-03-06 11:52:59 Measurements Intervals [place] Rate: 61 P: 30 OK: 164 QRS: -26 QRSD: 89 T: 10 QT: 381 QTc: 386 Interpretive Statements SINUS RHYTHM CONSIDER RIGHT VENTRICULAR CONDUCTION DELAY LOW QRS VOLTAGE IN PRECORDIAL LEADS VOLTAGE CRITERIA FOR LVH POOR R WAVE PROGRESSION BORDERLINE T WAVE ABNORMALITY- INFERIOR LEADS BASELINE ARTIFACT- I, III ,AVR, AVL, AVF BORDERLINE ECG No previous ECG available for comparison Electronically Signed On 03-06-2025 12:01:32 CDT by Neo Rey D.O.
--- OUTSIDE RECORDS SUMMARY | 2025-03-06 11:40 | XMS_ITS ---
Author Organization [facility] Address [address] [place] [address] Care Team Providers Care Men'S Designer Name Role Phone Myriam Jorgensen MD Primary Care Provider Active Problems Problem Noted Date Diagnosed Date Gilbert syndrome 06/27/2022 Elevated liver enzymes 03/17/2021 Cancer, metastatic to lung 11/03/2019 Nonspecific abnormal electrocardiogram (ECG) (EK G) 11/03/2019 S/p nephrectomy 09/23/2019 Primary osteoarthritis of right hip 06/02/2019 Overview (03/17/2021): Added automatically from request for surgery [id number] Personal history of malignant neoplasm of breast 12/04/2014 Encounter for antineoplastic chemotherapy 2013 Malignant neoplasm of kidney excluding renal pel vis 09/25/2014 Primary malignant neoplasm 02/01/2014 Other pulmonary embolism without acute cor pulmo nale 06/17/2013 Current Treatment and Therapy Plans Metastatic RCC (BEVACIZUMAB) Q21 DAYS* Plan [...] 0.9% NaCl IV 156 mL infusion Past Treatment and Therapy Plans ONCOLOGY TREATMENT Plan Name Start Date [...] of 6 cycles started Radiation Treatments * Course C2:SC_L+Hilum_R 02/14/2023 - 02/22/2023 Treatment Period Energy Fraction Dose Fractions Total Dose Plans Planned #LtSCV 02/14/2023 - 02/22/2023 5 / 5 3,500 cGy #RtHilum 02/14/2023 - 02/22/2023 5 / 3,000 cGy Reference Points Delivered PTV_Hilum_R 02/14/2023 - 02/22/2023 3,000 cGy [id number] 02/14/2023 - 02/22/2023 3,500 cGy * Course C1:Mediastinum 07/12/2021 - 07/21/2021 Treatment Period Energy Fraction Dose Fractions Total Dose Plans Planned #Mediastinum1 07/12/2021 - 07/21/2021 5 / 5 3,000 cGy Reference Points Delivered PTV 07/12/2021 - 07/21/2021 3,000 cGy Lifetime Dose Tracking * Chemical Lifetime Dose Automatic Entry Manual Entr y Dose Length Product 14,795.8 mGy-cm 14,795.8 mGy-cm 0 mGy-cm
--- OUTSIDE RECORDS SUMMARY | 2025-03-06 11:40 | XMS_ITS | Clinical Summary ---
Author Organization [facility] Address [address] [place] [address] Care Team Providers Care Twill Cutter Name Role Phone Marycarmen Ruiz MD Primary Care Provider [phone]- [phone] Allergies No known active allergies Medications atorvastatin (LIPITOR) 10 mg tabletIndicatio ns:hyperlipidem ia Take 10 mg by mouth every morning 6 Active losartan (COZAAR) 100 mg tabletIndicatio ns:hypertension Take 100 mg by mouth every morning 6 Active levothyroxine (SYNTHROID) 25 mcg tablet Take 25 mcg by mouth director of sleep before breakfast Active amLODIPine (NORVASC) 10 mg tablet TK 1 T PO QD 0 Active Active Problems Problem Noted Date Diagnosed Date S/p nephrectomy 09/23/2019 Primary osteoarthritis of right hip 06/02/2019 Overview (06/02/2019): Added automatically from request for surgery [id number] Primary malignant neoplasm 02/01/2014 Other pulmonary embolism [...] file Legal Sex Female 11:13 AM SALES COMPENSATION ANALYST Gender Identity Not on file Sexual Orientation Not on file Obstetrics History Last Filed Vital Signs Vital Sign Reading Time Taken Comments Blood Pressure 127/58 09/24/2019 2:58 PM SALES COMPENSATION ANALYST Pulse 74 09/24/2019 2:58 PM SALES COMPENSATION ANALYST Temperature 36.8 C (98.2 F) 09/24/2019 11:27 AM SALES COMPENSATION ANALYST Respiratory Rate 18 09/24/2019 11:27 AM SALES COMPENSATION ANALYST Oxygen Saturation 96% 09/24/2019 2:58 PM SALES COMPENSATION ANALYST Inhaled Oxygen Concentration - - Weight 86.3 kg (190 lb 3.2 oz) 10/19/2020 9:55 A M SALES COMPENSATION ANALYST Height 161.3 cm (5' 3.5 ) 10/19/2020 9:55 AM SALES COMPENSATION ANALYST Body Mass Index 33.16 10/19/2020 9:55 AM SALES COMPENSATION ANALYST Plan of Treatment Health Maintenance Due [...] season) 2024 11/03/2021, 12/27/2020, 12/06/2020 Influenza Vaccine (Season Ended) 2025 08/18/2021, 08/12/2019, 08/07/2019, Additional history exists DTaP/Tdap/Td Vaccine (3 - Td or Tdap) 04/23/2027 04/23/2017, 03/20/2007 Hepatitis B Screening Completed 08/25/2021 Medical Devices Implanted Type Area Dish Up Person Device Identifier Shelf Expiration Date Model / Serial / Lot [employer] [id number] Screw Bone Trident Ii L25mm Od6.5mm Low Profile Hexagonal Sterile - S0 - [id number] Implanted:Qty: 1 on 09/23/2019 by Heber Whittaker MD at [facility] Screw Right: Hip [employer] [id number] 05/05/2024 3108-2560 / 0 / [id number] Description: Hip Left: Hip [employer] 5467-3722 Screw Bone Trident Ii L30mm Od6.5mm Low Profile Hexagonal Sterile - S0 - [id number] Implanted:Qty: 1 on 09/23/2019 by Heber Whittaker MD at [facility] Right: Hip [employer] [id number] 05/27/2024 8309-1724 / 0 / 4P4D Description: [employer] 702-04-58f Shell Acetabular Trident Ii Tritanium F Od58mm Hip 5 Screw Hole Cluster Sterile - S0 - [id number] Implanted:Qty: 1 on 09/23/2019 by Heber Whittaker MD at [facility] Right: Hip [employer] [id number] 04/14/2024 702-04-58F / 0 / [id number] Description: [employer] 623-00-36f 36mm 7.9mm Hip 0d F Liner Acetabular X3 - S0 - [id number] Implanted:Qty: 1 on 09/23/2019 by Heber Whittaker MD at [facility] Right: Hip [employer] [id number] 06/14/2024 623-00-36F / 0 / [id number] Description: [employer] [id number] Accolade 102mm 30mm Modular Hip 127d 3 Taper Stem Femoral Sterile - S0 - [id number] Implanted:Qty: 1 on 09/23/2019 by Heber Whittaker MD at [facility] Right: Hip [employer] [id number] / 0 / [id number] Description: [employer] 6570-0-236 V40 36mm Anatomic Hip +5mm Offset Taper Head Femoral Biolox Delta - [id number] Implanted:Qty: 1 on 09/23/2019 by Heber Whittaker MD at [facility] Right: Hip [employer] [id number] 07/29/2024 6570-0-236 / / [id number] Description:kf Insurance [facility] CHO[facility] PLUS [facility] PL[facility] Advance Directives For more information, please contact: [phone] * Full Code (Latest Code Status on File) Date Activated Date Inactivated Comments 09/23/2019 4:16 PM 09/24/2019 10:29 PM Care Teams Twill Cutter Relationship Specialty Start Date End Date Marycarmen Ruiz MD PCP - General Family Practice 04/28/19
--- OUTSIDE RECORDS SUMMARY | 2025-03-06 11:40 | XMS_ITS | Referral Summary ---
Author Organization [facility] Address [address] [place] [address] Care Team Providers Care Crank Hand Name Role Phone Marycarmen Ruiz MD Primary Care Provider +1- [phone] Allergies No known active allergies Medications atorvastatin (LIPITOR) 10 mg tabletIndicatio ns:hyperlipidem ia Take 10 mg by mouth every morning 6 Active losartan (COZAAR) 100 mg tabletIndicatio ns:hypertension Take 100 mg by mouth every morning 6 Active levothyroxine (SYNTHROID) 25 mcg tablet Take 25 mcg by mouth director of early childhood education before breakfast Active amLODIPine (NORVASC) 10 mg tablet TK 1 T PO QD 0 Active Active Problems Problem Noted Date Diagnosed Date S/p nephrectomy 09/23/2019 Primary osteoarthritis of right hip 06/02/2019 Overview (06/02/2019): Added automatically from request for surgery [id number] Primary malignant neoplasm 02/01/2014 Other pulmonary embolism [...] on file Legal Sex Female 11:13 AM SNOW SHOVELER Gender Identity Not on file Sexual Orientation Not on file Last Filed Vital Signs Vital Sign Reading Time Taken Comments Blood Pressure 127/58 09/24/2019 2:58 PM SNOW SHOVELER Pulse 74 09/24/2019 2:58 PM SNOW SHOVELER Temperature 36.8 C (98.2 F) 09/24/2019 11:27 AM SNOW SHOVELER Respiratory Rate 18 09/24/2019 11:27 AM SNOW SHOVELER Oxygen Saturation 96% 09/24/2019 2:58 PM SNOW SHOVELER Inhaled Oxygen Concentration - - Weight 86.3 kg (190 lb 3.2 oz) 10/19/2020 9:55 A M SNOW SHOVELER Height 161.3 cm (5' 3.5 ) 10/19/2020 9:55 AM SNOW SHOVELER Body Mass Index 33.16 10/19/2020 9:55 AM SNOW SHOVELER Plan of Treatment Not on file Medical Devices Implanted Type Area Consumer Attorney Device Identifier Shelf Expiration Date Model / Serial / Lot [employer] [id number] Screw Bone Trident Ii L25mm Od6.5mm Low Profile Hexagonal Sterile - S0 - [id number] Implanted:Qty: 1 on 09/23/2019 by Heber Whittaker MD at [facility] Screw Right: Hip [employer] [id number] 05/05/2024 4313-1572 / 0 / [id number] Description: Hip Left: Hip [employer] [id number] Screw Bone Trident Ii L30mm Od6.5mm Low Profile Hexagonal Sterile - S0 - [id number] Implanted:Qty: 1 on 09/23/2019 by Heber Whittaker MD at [facility] Right: Hip [employer] [id number] 05/27/2024 5042-5424 / 0 / 4P4D Description: [employer] 702-04-58f Shell Acetabular Trident Ii Tritanium F Od58mm Hip 5 Screw Hole Cluster Sterile - S0 - [id number] Implanted:Qty: 1 on 09/23/2019 by Heber Whittaker MD at [facility] Right: Hip [employer] [id number] 04/14/2024 702-04-58F / 0 / [id number] Description: [employer] 623-00-36f 36mm 7.9mm Hip 0d F Liner Acetabular X3 - S0 - [id number] Implanted:Qty: 1 on 09/23/2019 by Heber Whittaker MD at [facility] Right: Hip [employer] [id number] 06/14/2024 623-00-36F / 0 / [id number] Description: [employer] [id number] Accolade 102mm 30mm Modular Hip 127d 3 Taper Stem Femoral Sterile - S0 - [id number] Implanted:Qty: 1 on 09/23/2019 by Heber Whittaker MD at [facility] Right: Hip [employer] [id number] / 0 / [id number] Description: [employer] 6570-0-236 V40 36mm Anatomic Hip +5mm Offset Taper Head Femoral Biol[employer] Delta - [id number] Implanted:Qty: 1 on 09/23/2019 by Heber Whittaker MD at [facility] Right: Hip [employer] [id number] 07/29/2024 6570-0-236 / / [id number] Description:kf Insurance [facility]O Address: [facility] [id number] [place], [place] [id number] [facility] CHOICE PLUS [facility] Address: [place] [address] Advance Directives For more information, please contact: [phone] * Full Code (Latest Code Status on File) Date Activated Date Inactivated Comments 09/23/2019 4:16 PM 09/24/2019 10:29 PM Care Teams Crank Hand Relationship Specialty Start Date End Date Marycarmen Ruiz MD PCP - General Family Practice 04/28/19
--- OUTSIDE RECORDS SUMMARY | 2025-03-06 11:40 | XMS_ITS | Clinical Summary ---
Author Organization [facility] Address [address] [place] [address] Care Team Providers Care Wire Straightening Machine Operator Name Role Phone Unavailable Primary Care Provider Unavailabl e Allergies Active Allergy Reactions Criticality Noted Date Comments Hydrochlorothiazide Other (See Comments) 2021 She has severe low sodium with dosing (from 139>>126 in 1 week) Medications losartan (COZAAR) 100 mg tablet Take 100 mg by mouth daily. 01/25/2025 Active carvedilol (COREG CR) 10 mg Controlled Release 24 hour capsule Take 10 mg by mouth daily at bedtime. Active carvedilol (COREG CR) 20 mg Controlled Release 24 hour capsule Take 20 mg by mouth daily with breakfast. Active amLODIPine (NORVASC) 10 mg tablet Take 10 mg by mouth daily. Active rosuvastatin (CRESTOR) 20 mg tablet Take 20 mg by mouth daily. Active levothyroxine 50 mcg tablet Take 1 Tablet by mouth daily. 02/01/2025 Active Jardiance 10 mg tablet Take 10 mg by mouth daily. 02/09/2025 Active MULTIVITAMIN ORAL Take by mouth daily. Active Active Problems No known active problems Encounters Date Type Department Care Team Description 02/24/2025 External Device Data ST[facility] ABSTRACTION Provider, Abstract 02/24/2025 External Device Data [facility] ABSTRACTION Provider, Abstract 02/24/2025 External Device Data [facility] ABSTRACTION Provider, Abstract 02/20/2025 2:30 PM CDT Office Visit [facility] Oncology and Hematology - [place] [address] [place] [address] Negro Ann MD Malignant neoplasm of upper-outer quadrant of right breast in female, estrogen receptor positive (CMS/HCC) (Primary Dx) from Last 3 Months Family History Medical History Relation Name Comments No Known Problems Child Heart Disease Father No Known Problems Mother No Known Problems Sister 1 No Known Problems Sister 2 No Known Problems Sister 3 No Known Problems Sister 4 No Known Problems Sister 5 Breast Cancer Sister 6 Relation Name Status Comments Child Alive Father Mother Sister 1 Sister 2 Alive Sister 3 Alive Sister 4 Alive Sister 5 Alive Sister 6 Social History Tobacco Use Types Packs/Day Years Used Date Smoking Tobacco: Never Smokeless Tobacco: Never Alcohol Use Standard Drinks/Week Comments Yes 0 (1 standard drink = 0.6 oz pur e alcohol) Occasionally Comments Unknown Sex and Gender Information Value Date Recorded Sex Assigned at Not on file Legal Sex Female 2:30 PM CDT Gender Identity Not on file Sexual Orientation Not on file Last Filed Vital Signs Vital Sign Reading Time Taken Comments Blood Pressure 139/78 02/20/2025 2:38 PM CDT Pulse 72 02/20/2025 2:38 PM CDT Temperature 36.1 C (97 F) 02/20/2025 2:38 PM CDT Respiratory Rate 16 02/20/2025 2:38 PM CDT Oxygen Saturation 94% 02/20/2025 2:38 PM CDT Inhaled Oxygen Concentration - - Weight 91.2 kg (201 lb) 02/20/2025 2:38 PM CDT Height 165.1 cm (5' 5 ) 02/20/2025 2:38 PM CDT Body Mass Index 33.45 02/20/2025 2:38 PM CDT Plan of Treatment Upcoming Encounters Date Type Department Care Team (Late st Contact Info) Description 04/09/2025 10:00 AM CDT Office Visit [facility] Oncology and Hematology - [place] [address] [facility] [address] [place] [address] Negro Ann MD [address] [facility] [address] [place] [address] Health Maintenance Due Date Last Done Comments Pre-Diabetes and Diabetes Screening 1958 DTAP/TDAP/TD VACCINES (1 - Tdap) 1977 BREAST CANCER SCREENING 1998 COLORECTAL SCREENING 2003 Colorectal Cancer Screening 2003 FIT-DNA Q 3 years 2003 FIT/FOBT Q 1 year 2003 Flex Sig/CT Colonography Q 5 years 2003 ZOSTER VACCINE (1 of 2) 01/21/2008 PNEUMOCOCCAL VACCINE 50+ YEA RS (2 of 2 - PCV) 09/27/2015 09/27/2014 RSV VACCINE (60+ or ) (1 - Risk 60-74 years 1-dose series) 2018 OSTEOPOROSIS SCREENING 2023 INFLUENZA VACCINE (#1) 2024 COVID-19 Vaccine ( season) 2024 11/03/2021, 12/27/2020, 12/06/2020 Insurance MEDICARE [facility] ONLY [employer] SIGNATURE ADMIN [facility]
--- OUTSIDE RECORDS SUMMARY | 2025-03-06 11:40 | XMS_ITS | Encounter Summary ---
Author Organization [facility] Address [address] [place] [address] Care Team Providers Care Head Wrestling Coach Name Role Phone Marycarmen Pascal MD Primary Care Provider + Myriam Jorgensen MD Primary Care Provider + Marycarmen Pascal MD Primary Care Provider + Myriam Jorgensen MD Primary Care Provider + Marycarmen Pascal MD Primary Care Provider + Myriam Jorgensen MD Primary Care Provider + Allyson Snowden Primary Care Provider + Myriam Jorgensen MD Primary Care Provider + Nakita Kelly RN Unavailable Unavailable Tiot Schwartz MD Unavailable [phone] Encounter Details Date Type Department Care Team (Late st Contact Info) Description 01/06/2020 Lab Requisition [facility] Pathology Lab [address] [place] [address] Johnie Mendiola MD [address] [place] [address] Social History Tobacco Use Types Packs/Day Years Used Date Smoking Tobacco: Former Cigarettes Q uit: 07/28/1978 Smokeless Tobacco: Never Comments:only smoked occ in college Alcohol Use Standard Drinks/Week Comments Yes 1.7 (1 standard drink = 0.6 oz p ure alcohol) occ Comments Unknown Sex and Gender Information Value Date Recorded Sex Assigned at Not on file Legal Sex Female 5:40 PM AERIAL GUNNER Gender Identity Female 02/13/2024 7:42 AM CDT Sexual Orientation Not on file 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 Answer Date of Assessment Author No 01/01/2020 1:00 PM Carolyn Castellanos RN * Is person blind or have serious difficulty seeing? Answer Date of Assessment Author No 01/01/2020 1:00 PM Carolyn Castellanos RN * Does person have serious difficulty walking/climbing stairs? Answer Date of Assessment Author No 01/01/2020 1:00 PM Carolyn Castellanos RN * Does person have difficulty dressing/bathing? Answer Date of Assessment Author No 01/01/2020 1:00 PM Carolyn Castellanos RN * Does person have difficulty doing errands alone? Answer Date of Assessment Author No 01/01/2020 1:00 PM Carolyn Castellanos RN documented as of this encounter Mental Status * Does person have difficulty concentrating/remembering/making decisions? Answer Entry Date Author No 01/01/2020 1:00 PM Carolyn Castellanos RN documented in this encounter Plan of Treatment Upcoming Encounters Date Type Department Care Team (Late st Contact Info) Description 04/02/2025 10:00 AM CDT Appointment [facility] CAT SCAN [address] [place] [phone] Ronnie Mcqueen MD [facility] [place] [address] 04/07/2025 9:30 AM CDT Appointment [facility] RAD ONC [facility] [place] [address] Ronnie Mcqueen MD [facility] [place] [address] 04/14/2025 1:20 PM CDT Office Visit [facility] - Hematology/Oncology [address] [place] [phone] Wai Tse MD [address] [place] [address] OF HEMATOLOGY & [place] [address] 07/14/2025 9:00 AM CDT Office Visit [facility] - Nephrology [address] [facility] [place] [phone] Tito Schwartz MD [address] [place] [id number] documented as of this encounter Procedures Procedure Name Priority Date/Time Associated Diagnosis Comments SLIDE PREP HISTOLOGY Routine 01/01/2020 8:42 AM AERIAL GUNNER documented in this encounter Results * SLIDE PREP HISTOLOGY (01/01/2020 8:42 AM AERIAL GUNNER) Client Specimen ID # [id number] 01/07/2020 6:02 PM AERIAL GUNNER [facility] Number of Blocks Received 0 01/07/2020 6:02 PM AERIAL GUNNER [facility] Number of Slides 1 01/07/2020 6:02 PM AERIAL GUNNER [facility] Number of Control Slides 1 01/07/2020 6:02 PM AERIAL GUNNER [facility] Pathology/Cytolo gy BIOPSY OF LUNG / Unknown 01/01/2020 8:42 AM AERIAL GUNNER 01/06/2020 3:30 PM AERIAL GUNNER us Imsarthak Baum MD LAB - PATHOLOGY/CYTOLOGY ORD ERABLES Final Result [facility] [address] [facility] [place] [address], [facility] [phone] documented in this encounter Visit Diagnoses Not on filedocumented in this encounter Care Teams Head Wrestling Coach Relationship Specialty Start Date End Date Marycarmen Pascal MD PCP - General 03/27/19 06/21/21 Myriam Jorgensen MD [address] [place] [address] PCP - General Family Medicine 06/22/21 09/03/21 Marycarmen Pascal MD PCP - General 09/04/21 10/18/21 [place] [address] [place] [address] PCP - General Family Medicine 10/19/21 10/19/21 Marycarmen Pascal MD PCP - General 10/20/21 12/08/21 [place] [address] [place] [address] PCP - General Family Medicine 12/09/21 10/11/22 [place] [address] [place] [address] PCP - General Physician Research Programmer 10/12/22 10/15/22 [place] [address] [place] [address] PCP - General 10/16/22 Nakita Kelly, RN Registered Nurse Hepatology 01/13/25 02/09/25 Tito Schwartz MD [address] OF [facility] [place], [place] Nephrology 01/13/25 02/09/25 documented as of this encounter
--- OUTSIDE RECORDS SUMMARY | 2025-03-06 11:40 | XMS_ITS ---
Tito Schwartz MD LAB - CHEMISTRY ORDERABLES Fi nal Result [facility] [address] [place] [id number], [facility] * CBC W/O DIFFERENTIAL (12/18/2024 9:51 AM COMMUNITY MENTAL HEALTH WORKER) WBC 4.8 4.0 - 10.7 x10E9/L 12/18/2024 10:45 AM [facility] RBC Count 4.80 3.90 - 5.20 x10E12/L 12/18/2024 10:45 AM [facility] Hemoglobin 15.6 11.9 - 15.8 g/dL 12/18/2024 10:45 AM [facility] Hematocrit 45.8 34.8 - 46.1 % 12/18/2024 10:45 AM [facility] MCV 95.4 80.0 - 98.0 fL 12/18/2024 10:45 AM [facility] MCH 32.5 26.7 - 33.6 pg 12/18/2024 10:45 AM [facility] MCHC 34.1 31.7 - 36.3 g/dL 12/18/2024 10:45 AM [facility] RDW-CV 13.4 11.3 - 14.8 % 12/18/2024 10:45 AM [facility] Platelet Count 225 150 - 420 x10E9/L 12/18/2024 10:45 AM [facility] MPV 9.9 7.8 - 11.4 fL 12/18/2024 10:45 AM [facility] Blood BLOOD SPECIMEN / Unknown Lab Venipuncture / Unknown 12/18/2024 9:51 AM [facility] 12/18/2024 10:35 AM COMMUN[facility] MENTAL HEALTH WORKER Tito Schwartz MD LAB - HEMATOLOGY ORDERABLES F inal Result [facility] [address] [place] [address], [facility] [phone] * COMPLEMENT C4 (12/18/2024 9:51 AM COMMUNITY MENTAL HEALTH WORKER) Complement C4 43 15 - 57 mg/dL 12/18/2024 11:09 AM [facility] Blood BLOOD SPECIMEN / Unknown Lab Venipuncture / Unknown 12/18/2024 9:51 AM [facility]AL HE[facility] WORKER 12/18/2024 10:34 AM COMMUNITY MENTAL HEALTH WORKER us Tito Schwartz MD LAB - SEROLOGY ORDERABLES Fin al Result [facility] [address] [place] [address], [facility] [phone] * (ABNORMAL) RENAL FUNCTION PANEL (12/18/2024 9:51 AM [facility]) BUN 11 7 - 26 mg/dL 12/18/2024 11:09 AM [facility] Creatinine 0.93 0.56 - 0.96 mg/dL 12/18/2024 11:09 AM [facility] Sodium 138 136 - 145 mmol/L 12/18/2024 11:09 AM [facility] Potassium 3.6 3.5 - 4.5 mmol/L 12/18/2024 11:09 AM [facility] Chloride 103 98 - 107 mmol/L 12/18/2024 11:09 AM [facility] CO2 23 22 - 29 mmol/L 12/18/2024 11:09 AM [facility] Glucose 85 70 - 99 mg/dL 12/18/2024 11:09 AM [facility] Albumin 4.3 3.4 - 5.0 g/dL 12/18/2024 11:09 AM [facility] Calcium 10.4(H) 8.4 - 10.2 mg/dL 12/18/2024 11:09 AM [facility] Phosphorus 3.3 2.9 - 5.1 mg/dL 12/18/2024 11:09 AM [facility] Anion Gap 12 6 - 16 12/18/2024 11:09 AM [facility] BUN/Creatinine Ratio 12 7 - 23 12/18/2024 11:09 AM [facility] Osmolality Calculated 285 275 - 295 mOsm/kg 12/18/2024 11:09 AM [facility] eGFR by CKD-EPI 68(L) >=90 mL/min/1.7 3 m2 12/18/2024 11:09 AM [facility] Blood BLOOD SPECIMEN / Unknown Lab Venipuncture / Unknown 12/18/2024 9:51 AM [facility] WORK[facility] 12/18/2024 10:34 AM COMM[facility] HE[facility] WORKER Tito Schwartz MD LAB - CHEMISTRY ORDERABLES Fi nal Result [address] [address], [facility] [phone] * COMPLEMENT C3 (12/18/2024 9:51 AM COMMUNITY MENTAL HEALTH WORKER) Complement C3 161 82 - 193 mg/dL 12/18/2024 11:09 AM [facility] Blood BLOOD SPECIMEN / Unknown Lab Venipuncture / Unknown 12/18/2024 9:51 AM [facility]AL HE[facility] WORKER 12/18/2024 10:34 AM COMM[facility] MENTAL HEALTH WORKER Tito Schwartz MD LAB - CHEMISTRY ORDERABLES Fi nal Result Performing Organization Address [facility] Co de Phone Number [address] [address], [facility] [phone] * CT Chest Abdomen Pelvis W Cont (12/18/2024 9:15 AM COMMUNITY MENTAL HEALTH WORKER) Anatomical Region Laterality Modality Chest, Abdomen, Pelvis Computed Tomography 12/18/2024 9:27 AM COMMUNITY MENTAL HEALTH WORKER Impressions 12/18/2024 10:32 AM COMMUNITY MENTAL HEALTH WORKER Impression: 1.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 2.No evidence of metastatic disease within the chest, abdomen, or pelvis. > Dictated by Florentino Duncan MD, (student services vice president). I, Maribel Reyes MD have personally reviewed and interpreted this examination/study. > Interpreting Provider: Maribel Reyes MD on 12/18/2024 10:32 AM Narrative 12/18/2024 10:32 AM COMMUNITY MENTAL HEALTH WORKER PROCEDURE: CT CHEST ABDOMEN PELVIS W CONT, DATE/TIME OF EXAM: 12/18/2024 9:16 AM, LOCATION [facility] INDICATION: C78.02: Malignant neoplasm metastatic to [...] DATE/TIME OF EXAM: 12/18/2024 9:16 AM, LOCATION [facility] INDICATION: C78.02: Malignant neoplasm metastatic to [...] orpelvis. > Dictated by Florentino Duncan MD, (student services vice president). I, Maribel Reyes MD have personally reviewed and interpreted this examination/study. > Interpreting Provider: Maribel Reyes MD on 0:32 AM Ronnie Mcqueen MD CT ORDERABLES Final Result * (ABNORMAL) CREATININE - POCT INTERFACED (12/18/2024 9:02 AM COMMUNITY MENTAL HEALTH WORKER) [facility] Creatinine POCT 0.75 0.30 - 1.30 mg/dL 12/18/2024 9:08 AM COMMUNITY MENTAL HEALTH WORKER [facility] eGFR 88(L) >=90 mL/min/1.7 3 m2 12/18/2024 9:08 AM [facility] Blood BLOOD SPECIMEN / Unknown 12/18/2024 9:02 AM COMMUNITY MENTAL HEALTH WORKER 12/18/2024 9:08 AM COMMUNITY MENTAL HEALTH WORKER Ronnie Mcqueen MD LAB - POINT OF CARE ORDERABLES F inal Result [facility] [address] [address], [facility] [phone] * HEPATITIS C RNA QUANTITATIVE (03/17/2021 10:19 AM CDT) [facility] Hepatitis C RNA PCR, Interp Not detected Not detected 03/21/2021 3:48 PM CDT [facility] Blood BLOOD SPECIMEN / Unknown Lab Venipuncture / Unknown 03/17/2021 10:19 AM CDT 03/17/2021 10:35 AM CDT Narrative [facility] - 03/21/2021 3:48 PM CDT The Hepatitis C viral (HCV) RNA analysis utilized a serum sample, real-time reverse flat sheet maker PCR, and is reported as Not Detected, [...] the isolation of HCV RNA with reverse flat sheet maker of genomic HCV RNA followed by real-time PCR in the presence of an unrelated RNA internal control. The internal control ensures that RNA is isolated, and that no general significant inhibitors of the RT-PCR process are present. The analysis was performed using a U.[place]. FDA approved test methodology ([employer]dor[employer] Real Time HCV). us Jessica Padron IGNITER ASSEMBLER-MAIL HANDLER ASSISTANT LAB - CHEMISTRY [place] Final Result [facility] [address] [place] [address], [facility] [phone] from Last 3 Months or Most Recently Relevant to Health Maintenance Insurance [employer] SELF PAY NO INSURANCE Member Subscriber Plan / Payer (Ef fective for All Dates) Name:Shubham Lovelace Member ID:Not on file Relation to Subscriber:Not on file Name:SHUBHAM LOVELACE Subscriber ID:Not on file (Home) Address: [address] [place] [address] Payer ID:Not on file Group ID:Not on file Type:Self Pay Address: [place], [place] Advance Directives * Full Code (Latest Code Status on File) Date Activated Date Inactivated Comments 01/01/2020 1:07 PM 01/02/2020 11:33 AM Care Teams Leather Repairer Relationship Specialty Start Date End Date Myriam Jorgensen MD [address] [place], [place] [phone] PCP - General 10/16/22
== END 2025-03-06 11:24 | disposition home or self-care (01) ==
LOC: ANHSURGERY 11:27
PROVIDERS: PCP Student in an Organized Health Care Education/Training Program; Visit Provider Surgery
DX: C50.911 Malignant neoplasm of unspecified site of right female breast (principal); I10 Essential (primary) hypertension; Z01.818 Encounter for other preprocedural examination; I45.9 Conduction disorder, unspecified; R94.31 Abnormal electrocardiogram [ECG] [EKG]
CPT/HCPCS: 36415; 86850; 86900; 86901; 93005

== ENCOUNTER 2025-03-17 01:13 | Day surgery (SDC) | payer OTHER, SELFPAY ==
--- NOTE | 2025-03-02 14:05 | PC.NURSE ---
Report to the Outpatient Waiting Room, entrance under the green pavilion located off [facility], at time _6 AM on date __03/17/25 . Planned Procedure Time: __7:30 AM .? NUCLEAR MED AT 0645 Time changes happen often and if your time is changed the preop area will call you the afternoon before. - You and your visitor will be asked to self-screen and do not enter if you have any COVID symptoms. Please call surgeon if you need to reschedule. - A mask is optional within the hospital at this time. Patients may have clear liquids (water, carbonated beverages, clear teas, apple juice) until 3 hours prior to surgery ( 4:30 AM) with a maximum of 20 ounces. - No food from midnight until time of surgery and no smoking, or chewing tobacco (or any form of nicotine). No chewing gum, candy or mints. - Take only the following medications with a SIP of water on the morning of surgery: _AMLODIPINE,LEVOTHYOXINE, DO NOT STOP ANY OF YOUR OTHER PRESCRIPTION MEDICATIONS PRIOR TO SURGERY EXCEPT THE FOLLOWING Hold all vitamins and supplements for 3 days per anesthesiologist. LAST DOSE 03/13/25 Medications to discontinue per physician NONE Please no make-up, nail spanish, hairspray, perfume, deodorant, or body powder the day of surgery.? No jewelry (including any body piercings) or valuables the day of surgery, leave them at home.? Please take a shower or bath the night before, or the morning of, surgery with an antibacterial soap.? Wear comfortable, loose fitting clothing.? Children are encouraged to wear pajamas. - Jewelry must be removed prior to entering the operating room.? Rings and piercings that are not removed may be cut off. - The hospital will not accept responsibility for valuables.? - Please leave all valuables, including medications, at home the day of surgery. If you are going home after surgery, a licensed test driver must drive you home.? - NO public transportation without another adult if you receive anesthesia. - We recommend that an adult stay with you for 24 hours following discharge. - We also recommend that you do not drive, make important decision, drink alcoholic beverages, or take any drugs that were not prescribed by your health care provider for at least 24 hours after your discharge time. Follow any additional instructions given to you from your surgeon. Telephone instructions given to __PATIENT and asked if any additional questions and then verbalized understanding. Patient advised to call surgeon office or pre surgery nurse liaison [phone] if any additional questions.
[2025-03-02 14:23] VITALS: BMI 33.3
[2025-03-17] VITALS (14 sets, daily range): BP systolic 110–141; BP diastolic 64–79; PULSE 54–69; RESP 12–19; TEMP 36.1–36.6; O2SAT 92–100; BMI 34.2
--- NOTE | ~2025-03-17 | NM_ITS ---
NM sentinel node inject only 03/17/2025 8:16 CDT INDICATION: Right breast cancer TECHNIQUE: 1 Millicuries Tc 99m filtered sulfur colloid was injected and 4 aliquots in the anterior u pper outer quadrant of the breast near the areola. No images were obtained. Dr. Castro performed th e procedure. IMPRESSION: 1: Status post right breast sentinel lymph node radiopharmaceutical injection. Reviewed, dictated and finalized at location A.
--- OUTSIDE RECORDS SUMMARY | 2025-03-17 01:17 | XMS_ITS | Clinical Summary ---
Author Organization [facility] Address [address] [facility] [facility] [place] [address] Care Team Providers Care Linoleum Printer Name Role Phone Myriam Jorgensen MD Primary Care Provider [phone] Source Comments [facility],non-owned Affiliates and Associated Physician Practices is amultiple site organization consisting of ambulatory clinics and hospital sitesin [place], [place], [place]. This disclosure is being madepursuant to the Care Everywhere program and may not contain all information available regarding this patient. Last updated 18.[facility] Allergies Active Allergy Reactions Criticality Noted Date Comments Hydrochlorothiazide Other 05/10/2022 She has severe low sodium with dosing (from 139>>126 in 1 week) Medications * Be aware that medications may not be up to date on this document. Alwaysverify current medications with the patient. Multiple Vitamins-Mineral s (DAILY COMBO MULTI VITAMINS PO) Take 1 [...] 9 07/22/2024 Active amLODIPine (Norvasc) 10 MG tabletIndication s:Malignant neoplasm of right kidney, except renal pelvis (HCC),Hypertensi on, unspecified type TAKE 1 TABLET BY MOUTH EVERY DAY 90 tablet 3 11/07/2024 Active levothyroxine (Synthroid) 25 MCG tablet Take 1 (one) tablet by mouth once daily 10/23/2024 Active empagliflozin (Jardiance) 10 MG tablet TAKE 1 TABLET BY MOUTH DAILY 90 tablet 1 02/09/2025 Active Active Problems Problem Noted Date Diagnosed Date Gilbert syndrome 06/27/2022 Elevated liver enzymes 03/17/2021 Cancer, metastatic to lung 11/03/2019 Nonspecific abnormal electrocardiogram (ECG) (EK G) 11/03/2019 S/p nephrectomy 09/23/2019 Primary osteoarthritis of right hip 06/02/2019 Overview (03/17/2021): Added automatically from request for surgery [id number] Personal history of malignant neoplasm of breast 12/04/2014 Encounter for antineoplastic chemotherapy 2013 Malignant neoplasm of kidney excluding renal pel vis 09/25/2014 Primary malignant neoplasm 02/01/2014 Other pulmonary embolism without acute cor pulmo nale 06/17/2013 Encounters Date Type Department Care Team Description 02/19/2025 Telephone [facility] - Nephrology [address] [place] [phone] Tito Schwartz MD Results 02/11/2025 Telephone [facility] RAD ONC [facility] [place] [address] Brenda Rider RN General 02/09/2025 Refill [facility] - Nephrology [address] [place] [phone] Tito Schwartz MD Refill Request 02/05/2025 Refill [facility] - Nephrology [address] [place] [address] Tito Schwartz MD Refill Request 02/04/2025 Telephone [facility] - Nephrology [address] [place] [phone] Tito Schwartz MD Results 01/30/2025 12:35 AM CDT - 01/30/2025 11:59 PM CDT Hospital Encounter [facility] MAIN LAB [address] [place] [address] Discharge Disposition: Home or Self Care 01/27/2025 Telephone [facility] - GI [address] [place] [phone] Lorenzo Morris, RN Follow-up 01/13/2025 9:00 AM [employer] TUBE WINDER Office Visit [facility] - Nephrology [address] [place] [phone] Tito Schwartz MD Proteinuria, unspecified type (Primary Dx) 01/13/2025 Travel 01/02/2025 1:15 PM [employer] TUBE WINDER - 01/02/2025 11:59 PM [employer] [facility]ER Hospital Encounter [facility] [id number] [place] [phone] Tito Schwartz MD Discharge Disposition: Home or Self Care 01/02/2025 Travel 12/23/2024 9:00 AM [employer] TUBE WINDER - 12/23/2024 11:59 PM [employer]ER Hospital Encounter [facility] RAD ONC [address] [place] [address] Ronnie Mcqueen MD Discharge Disposition: Home or Self Care 12/22/2024 1:00 PM [employer] TUBE WINDER Office Visit [facility] - Hematology/Oncology [address] [place] [phone] Wai Tse MD Metastatic renal cell carcinoma, unspecified laterality (Primary Dx) 12/22/2024 12:20 PM [employer] TUBE WINDER - 12/22/2024 11:59 PM [employer]BE [employer]ER Hospital Encounter [facility] [address] [place] [phone] Wai Tse MD Discharge Disposition: Home or Self Care 12/22/2024 Travel 12/18/2024 9:00 AM HAND TUBE WINDER - 12/18/2024 11:59 PM [employer]BE W[employer]ER Hospital Encounter [facility] LAB OP DRAW STATION [address] [place] [address] Ronnie Mcqueen MD Discharge Disposition: Home or Self Care 12/18/2024 8:56 AM HAND TUBE WINDER - 12/18/2024 8:59 AM [employer] TUBE WINDER Hospital Encounter [facility] CAT SCAN [address] [place] [address] Ronnie Mcqueen MD Discharge Disposition: Home or Self Care 12/18/2024 Travel from Last 3 Months Immunizations Immunization Administration Dates Next Due Covid Pfizer primary monoval ent 12+ yr 0.3mL Purple [...] 0.6 oz p ure alcohol) occ Comments No Sex and Gender Information Value Date Recorded Sex Assigned at Not on file Legal Sex Female 5:40 PM HAND TUBE WINDER Gender Identity Female 02/13/2024 7:42 AM CDT Sexual Orientation Not on file 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 Not on file Not on file Last Filed Vital Signs Vital Sign Reading Time Taken Comments Blood Pressure 149/87 01/13/2025 9:11 AM HAND TUBE WINDER Pulse 68 01/13/2025 9:11 AM [employer] TUBE W[employer]ER Temperature 36.8 C (98.3 F) 01/13/2025 9:11 AM [employer] TUBE WINDER Respiratory Rate 18 12/23/2024 9:05 AM [employer] TUBE WINDER Oxygen Saturation 98% 01/13/2025 9:11 AM HAND TUBE WINDER Inhaled Oxygen Concentration - - Weight 90.8 kg (200 lb 3.2 oz) 01/13/2025 9:11 A M HAND TUBE WINDER Height 165.1 cm (5' 5 ) 01/13/2025 9:11 AM [employer] TUBE WINDER Body Mass Index 33.32 01/13/2025 9:11 AM HAND TUBE WINDER Plan of Treatment Upcoming Encounters Date Type Department Care Team (Late st Contact Info) Description 04/02/2025 10:00 AM CDT Appointment [facility] CAT SCAN [address] [place] [phone] Ronnie Mcqueen MD [address] [place] [phone] 04/07/2025 9:30 AM CDT Appointment [facility] RAD ONC [address] [place] [phone] Ronnie Mcqueen MD [address] [place] [phone] 04/14/2025 1:20 PM CDT Office Visit [facility] - Hematology/Oncology [address] [place] [phone] Wai Tse MD [address] [place] [address] DIV OF HEMATOLOGY & [place] [address] 07/14/2025 9:00 AM CDT Office Visit [facility] - Nephrology [address] [facility] [place] [phone] Tito Schwartz MD [address] [place] [phone] Health Maintenance Due Date Last Done Comments [...] series) 09/22/2021 08/25/2021 COVID-19 VACCINE ( - season) 2024 11/03/2021, 12/27/2020, 12/06/2020 DEPRESSION SCREENING 11/12/2024 INFLUENZA VACCINE (Season Ended) 2025 08/17/2022, 08/18/2021, 08/19/2020, Additional history exists SCREENING FOR DIABETES 12/18/2027 , 08/20/2024, 07/30/2024, Additional history exists HEPATITIS C [...] General On track( 025 9:04 AM HAND TUBE WINDER) No Adeola Julio, RN Note: Expected end date: ongoing Interventions: Take all medications as prescribed Safety General On track( 025 9:04 AM HAND TUBE WINDER) No Nakita Kelly, RN Note: Expected end [...] General On track( 025 11:58 AM HAND TUBE WINDER) No 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 Kelly 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 specialist Procedure Name Priority Date/Time Associated Diagnosis Comments PROTEIN URINE TIMED QUANTITATIVE Routine 01/30/2025 8:00 AM CDT Proteinuria, unspecified type US RETROPERITONEAL COMPLETE Routine 01/02/2025 1:56 PM [employer] TUBE WINDER Proteinuria, unspecified type Metastatic renal cell carcinoma, unspecified laterality URINALYSIS NO MICROSCOPIC NO CULTURE STAT 12/22/2024 1:06 PM [employer]BE W[employer]ER Malignant neoplasm of kidney excluding renal pelvis, unspecified laterality CBC W AUTO DIFFERENTIAL STAT 12/22/19 25 1:06 PM [employer] TUBE W[employer]ER Malignant neoplasm of kidney excluding renal pelvis, unspecified laterality URINALYSIS REFLEX TO MICROSCOPIC NO CULTURE Routine 12/18/2024 9:52 AM [employer]UBE W[employer]ER Proteinuria, unspecified type Metastatic renal cell carcinoma, unspecified laterality PROTEIN CREATININE RATIO URINE RANDOM PNL Routine 12/18/2024 9:52 AM [employer]UBE WINDER Proteinuria, unspecified type Metastatic renal cell carcinoma, unspecified laterality SYPHILIS (T PALLIDUM) DONOR Routine 12/18/2024 9:51 AM [employer] TUBE WINDER Proteinuria, unspecified type Metastatic renal cell carcinoma, unspecified laterality REF LAB-SPECIMEN STATUS REPORT Routine 12/18/2024 9:51 AM [employer] TUBE WINDER Proteinuria, unspecified type Metastatic renal cell carcinoma, unspecified laterality IMMUNOFIXATION BLOOD Routine 12/18/2024 9:51 AM [employer] TUBE WINDER Proteinuria, unspecified type KAPPA/LAMBDA LITE CHAIN FREE PANEL Routine 12/18/2024 9:51 AM [employer] TUBE WINDER Proteinuria, unspecified type GLOMERULAR BASE MEMBRANE ANTIBODY IGG Routine 12/18/2024 9:51 AM [employer] TUBE WINDER Proteinuria, unspecified type Metastatic renal cell carcinoma, unspecified laterality PHOSPHOLIPASE A2 RECEPTOR AB IGG RFLX TITER Routine 12/18/2024 9:51 AM [employer] TUBE WINDER Proteinuria, unspecified type Metastatic renal cell carcinoma, unspecified laterality ANCA VASCULITIS PANEL Routine 12/18/2024 9:51 AM [employer] TUBE WINDER Proteinuria, unspecified type Metastatic renal cell carcinoma, unspecified laterality CHERYL BLOOD SCREEN W/REFLEX TITER Routine 12/18/2024 9:51 AM [employer] TUBE WINDER Proteinuria, unspecified type Metastatic renal cell carcinoma, unspecified laterality COMPLEMENT C4 Routine 12/18/2024 9:51 AM HAND TUBE WINDER Proteinuria, unspecified type Metastatic renal cell carcinoma, unspecified laterality COMPLEMENT C3 Routine 12/18/2024 9:51 AM [employer] TUBE WINDER Proteinuria, unspecified type Metastatic renal cell carcinoma, unspecified laterality TREPONEMA PALLIDUM AB IGG DONOR Routine 12/18/2024 9:51 AM [employer] TUBE WINDER Proteinuria, unspecified type Metastatic renal cell carcinoma, unspecified laterality HIV-1 HIV-2 ANTIBODY + HIV P24 AG PANEL Routine 12/18/2024 9:51 AM [employer]UBE W[employer]ER Proteinuria, unspecified type Metastatic renal cell carcinoma, unspecified laterality CBC W/O DIFFERENTIAL Routine 12/18/2024 9:51 AM HAND TUBE WINDER Proteinuria, unspecified type Metastatic renal cell carcinoma, unspecified laterality RENAL FUNCTION PANEL Routine 12/18/2024 9:51 AM [employer] TUBE WINDER Proteinuria, unspecified type Metastatic renal cell carcinoma, unspecified laterality DNA ANTIBODY DOUBLE STRANDED Routine 12/18/2024 9:51 AM [employer] TUBE WINDER Proteinuria, unspecified type Metastatic renal cell carcinoma, unspecified laterality CT CHEST ABDOMEN PELVIS W CONT Routine 12/18/2024 9:15 AM HAND TUBE WINDER 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 CREATININE - POCT INTERFACED Routine 12/18/2024 9:02 AM HAND TUBE WINDER HEPATITIS C RNA QUANTITATIVE Routine 03/17/2021 10:19 [...] - 02/03/2025 10:10 AM CDT Performed at: 01 - [facility] [id number] Plant Superintendent: Alejandro Doshi PhD, Phone: [phone] us Tito Schwartz MD LAB - URINE CHEMISTRY ORDERAB LES Final Result Performing Organization Address City/State/[facility] Co de Phone Number [facility] ACCOUNT BILL [address] [place] [address] * US Retroperitoneal Complete (01/02/2025 1:56 PM HAND TUBE WINDER) Anatomical Region Laterality Modality Abdomen Ultrasound 01/02/2025 3:48 PM [employer] TUBE WINDER Impressions 01/02/2025 4:32 PM [employer] TUBE WINDER IMPRESSION: Mild left calyectasis. Right kidney surgically absent. No renal calculus or solid renal mass in the left kidney > Dictated by Dimitris Sewell MD, (residential instructor). I, Devan Acevedo MD have personally reviewed and interpreted this examination/study. > Interpreting Provider: Devan Acevedo MD on 01/02/2025 4:32 PM Narrative 01/02/2025 4:32 PM [employer] TUBE WINDER PROCEDURE: US RETROPERITONEAL COMPLETE, DATE/TIME OF EXAM: 01/02/2025 1:56 PM, LOCATION [facility] INDICATION: R80.9: Proteinuria, unspecified type C64.9: Metastatic [...] COMPLETE, DATE/TIME OF EXAM: 51:56 PM, LOCATION [facility] INDICATION: R80.9: Proteinuria, unspecified type C64.9: Metastatic [...] kidney > Dictated by Dimitris Sewell MD, (residential instructor). I, Devan Acevedo MD have personally reviewed and interpreted this examination/study. > Interpreting Provider: Devan Acevedo MD on 01/02/2025 4:32 PM Tito Schwartz MD ORDERABLES Final Result * (ABNORMAL) URINALYSIS NO MICROSCOPIC NO CULTURE (12/22/2024 1:06 PM HAND TUBE WINDER) Color UA Straw Straw, Yellow 12/22/2024 1:54 PM HAND TUBE WINDER [facility] Clarity UA Clear Clear 12/22/2024 1:[address] [facility] Specific [place] UA 1.002(L) 1.005 - 1.030 12/22/2024 1:[address] [facility] pH UA 6.0 5.0 - 8.0 pH 12/22/2024 1:[address] [facility] Protein UA 2+(A) Negative 12/22/2024 1:[address] [facility] Glucose UA 3+(A) Negative 12/22/2024 1:[address] [facility] Ketone UA Negative Negative 12/22/2024 1:[address] [facility] Bilirubin UA Negative Negative 12/22/2024 1:[address] [facility] Blood UA Negative Negative 12/22/2024 1:[address] [facility] Nitrite UA Negative Negative 12/22/2024 1:[address] [facility] Leukocyte Esterase Negative Negative 12/22/2024 1:[address] [facility] Urobilinogen UA Negative Negative mg/dL 12/22/2024 1:[address] [facility] Urine URINE SPECIMEN OBTAINED BY CLEAN CATCH PROCEDURE / Unknown Collection / Unknown 12/22/2024 1:06 PM [employer]UBE W[employer]ER 12/22/2024 1:39 PM [facility] - 12/22/2024 1:54 PM HAND TUBE WINDER us Wai Tse MD LAB - URINALYSIS ORDERABLES Fi nal Result Performing Organization Address City/State/[facility] Co de Phone Number [facility] [address] [place] [phone], [facility] [phone] * (ABNORMAL) CBC W AUTO DIFFERENTIAL (12/22/2024 1:06 PM HAND TUBE WINDER) WBC 6.5 4.0 - 10.7 x10E9/L 12/22/2024 2:[address] [facility] RBC Count 4.80 3.90 - 5.20 x10E12/L 12/22/2024 2:[address] [facility] Hemoglobin 15.9(H) 11.9 - 15.8 g/dL 12/22/2024 2:[address] [facility] Hematocrit 45.6 34.8 - 46.1 % 12/22/2024 2:[address] [facility] MCV 95.0 80.0 - 98.0 fL 12/22/2024 2:[address] [facility] MCH 33.1 26.7 - 33.6 pg 12/22/2024 2:[address] [facility] MCHC 34.9 31.7 - 36.3 g/dL 12/22/2024 2:[address] [facility] RDW-CV 13.3 11.3 - 14.8 % 12/22/2024 2:[address] [facility] Platelet Count 274 150 - 420 x10E9/L 12/22/2024 2:[address] [facility] MPV 10.2 7.8 - 11.4 fL 12/22/2024 2:[address] [facility] Preliminary Absolute Neutrophil 4.40 1.60 - 7.50 x10E9/L 12/22/2024 2:[address] [facility] Neutrophil % 68.0 41.0 - 74.0 % 12/22/2024 2:[address] [facility] Lymphocyte % 21.0 17.0 - 47.0 % 12/22/2024 2:[address] [facility] Monocyte % 7.4 3.0 - 11.0 % 12/22/2024 2:[address] [facility] Eosinophil % 2.8 0.0 - 7.0 % 12/22/2024 2:[address] [facility] Basophil % 0.5 0.0 - 1.6 % 12/22/2024 2:[address] [facility] Immature Granulocytes % 0.3 0.0 - 1.0 % 12/22/2024 2:[address] [facility] Neutrophil Absolute 4.40 1.60 - 7.50 x10E9/L 12/22/2024 2:[address] [facility] Lymphocyte Absolute 1.36 1.00 - 4.40 x10E9/L 12/22/2024 2:[address] [facility] Monocyte Absolute 0.48 0.15 - 1.00 x10E9/L 12/22/2024 2:[address] [facility] Eosinophil Absolute 0.18 0.00 - 0.60 x10E9/L 12/22/2024 2:[address] [facility] Basophil Absolute 0.03 0.00 - 0.13 x10E9/L 12/22/2024 2:[address] [facility] Blood BLOOD SPECIMEN / Unknown Venipuncture / Unknown 12/22/2024 1:06 PM [facility] 12/22/2024 2:09 PM [facility] Wai Tse MD LAB - HEMATOLOGY ORDERABLES Fi nal Result [facility] [address] [place] [phone], [facility] [phone] * (ABNORMAL) URINALYSIS REFLEX TO MICROSCOPIC NO CULTURE (12/18/2024 9:52 AM [facility]) Color UA Yellow Straw, Yellow 12/18/2024 10:[address] [facility] Clarity UA Clear Clear 12/18/2024 10:[address] [facility] Specific [place] UA 1.003(L) 1.005 - 1.030 12/18/2024 10:[address] [facility] pH UA 6.0 5.0 - 8.0 pH 12/18/2024 10:[address] [facility] Protein UA 2+(A) Negative 12/18/2024 10:[address] [facility] Glucose UA 3+(A) Negative 12/18/2024 10:[address] [facility] Ketone UA Negative Negative 12/18/2024 10:[address] [facility] Bilirubin UA Negative Negative 12/18/2024 10:[address] [facility] Blood UA Negative Negative 12/18/2024 10:[address] [facility] Nitrite UA Negative Negative 12/18/2024 10:[address] [facility] Leukocyte Esterase Negative Negative 12/18/2024 10:[address] [facility] Urobilinogen UA Negative Negative mg/dL 12/18/2024 10:[address] [facility] RBC UA 3-5 None Seen, 0-2, 3-5 /HPF 12/18/2024 10:[address] [facility] WBC UA 0-5 None Seen, 0-5 /HPF 12/18/2024 10:[address] [facility] Bacteria UA Trace(A) None /HPF 12/18/2024 10:[address] [facility] Squamous Epithelial Cells UA 0-2 None Seen, 0-2, 3-5 /HPF 12/18/2024 10:[address] [facility] Mucus UA 1+ /LPF 12/18/2024 10:[address] [facility] Urine URINE SPECIMEN OBTAINED BY CLEAN CATCH PROCEDURE / Unknown Collection / Unknown 12/18/2024 9:52 AM [employer]BE [facility]ER 12/18/2024 10:15 AM [facility] - 12/18/2024 10:37 AM HAND TUBE WINDER us Tito Schwartz MD LAB - URINALYSIS ORDERABLES F inal Result Performing Organization Address City/[facility]/ZIP Co de Phone Number [address] [address], [place] [phone] * (ABNORMAL) PROTEIN CREATININE RATIO URINE RANDOM PNL (12/18/2024 9:52 AM HAND TUBE WINDER) Protein Urine 102 Not Established mg/dL 12/18/2024 11:[address] [facility] Creatinine Urine 33.98 Not Established mg/dL 12/18/2024 11:[address] [facility] Protein/Creati nine Ratio Urine 3.00(H) <0.10 12/18/2024 11:[address] [facility] Urine URINE SPECIMEN OBTAINED BY CLEAN CATCH PROCEDURE / Unknown Collection / Unknown 12/18/2024 9:52 AM [employer] TUBE W[employer]ER 12/18/2024 10:15 AM HAND TUBE WINDER us Tito Schwartz MD LAB - URINE CHEMISTRY ORDERAB LES Final Result [address] [address], [place] [phone] * TREPONEMA PALLIDUM AB IGG DONOR (12/18/2024 9:51 AM HAND TUBE WINDER) Donor Syphilis (T pallidum) see scanned report 01/15/2025 8:01 AM [employer] TUBE WINDER [facility] ([facility]) Blood BLOOD SPECIMEN / Unknown Lab Venipuncture / Unknown 12/18/2024 9:51 AM [employer] TUBE W[employer]ER 12/18/2024 10:16 AM HAND TUBE WINDER Tito Schwartz MD LAB - SEROLOGY ORDERABLES Fin al Result [facility] ([facility]) [address] [place] [address] * SYPHILIS (T PALLIDUM) DONOR (12/18/2024 9:51 AM HAND TUBE WINDER) Donor Syphilis (T pallidum) Non Reactive Non Reactive 12/27/2024 7:08 PM HAND TUBE WINDER [facility] ([facility]) Comment: Test performed with [employer] Syphilis (T pallidum)-G kit. Blood BLOOD SPECIMEN / Unknown Lab Venipuncture / Unknown 12/18/2024 9:51 AM [employer] TUBE WINDER 12/18/2024 10:16 AM HAND TUBE WINDER Narrative [facility] ([facility]) - 12/27/2024 7:08 PM HAND TUBE WINDER Performed at: [facility] [employer] [address] [id number] Plant Superintendent: Jon Pinedo [facility], Phone: [phone] Tito Schwartz MD LAB - CHEMISTRY ORDERABLES Fi nal Result Performing Organization Address City/[facility]/ZIP Co de Phone Number [facility] ([facility]) [address] [place] [address], [facility] * PHOSPHOLIPASE A2 RECEPTOR AB IGG RFLX TITER (12/18/2024 9:51 AM HAND TUBE WINDER) Phospholipase A2 Receptor IgG <1:10 <1:10 12/20/2024 4:22 PM [employer] TUBE W[employer]ER [employer] ([facility]) Comment: Phospholipase A2 Receptor Antibody, IgG is not detected. No further testing will be performed. Performed By: [facility] [address] [place] [address] Planner Scheduler: Tucker Hernandez MD, PhD CLIA Number: [id number] Blood BLOOD SPECIMEN / Unknown Lab Venipuncture / Unknown 12/18/2024 9:51 AM [employer]UBE W[employer]ER 12/18/2024 10:16 AM HAND TUBE WINDER Tito Schwartz MD LAB - CHEMISTRY ORDERABLES Fi nal Result Performing Organization Address [facility] Co de Phone Number [facility] [employer] ([facility]) [address] [place], [place] [address] * HIV-1 HIV-2 ANTIBODY + HIV P24 AG PANEL (12/18/2024 9:51 AM HAND TUBE WINDER) Pathologist [facility] HIV Antigen/Antibod y 1 & 2 Non-reacti ve Non-react nafisa 12/18/2024 11:31 AM [employer] TUBE WINDER [facility] Comment:No Laboratory eviden ce of HIV infection. Blood BLOOD SPECIMEN / Unknown Lab Venipuncture / Unknown 12/18/2024 9:51 AM HAND TUBE W[employer]ER 12/18/2024 10:16 AM [employer] TUBE WINDER Tito Schwartz MD LAB - CHEMISTRY ORDERABLES Fi nal Result Performing Organization Address City/[facility] Co de Phone Number [facility] [address] [address], [facility] [phone] * REF LAB-SPECIMEN STATUS REPORT (12/18/2024 9:51 AM HAND TUBE WINDER) Pathologist [facility] Specimen Status Report Comment 12/22/2024 5:07 PM [employer] TUBE WINDER [facility] ([facility]) Comment: Written Authorization Written Authorization Written Authorization Received. Authorization received from [employer] 12-22-2024 Logged by Faye Villafana Blood BLOOD SPECIMEN / Unknown Lab Venipuncture / Unknown 12/18/2024 9:51 AM [employer] [facility] 12/18/2024 10:16 AM [employer] TUBE WINDER Narrative [facility] ([facility]) - 12/22/2024 5:07 PM [employer] TUBE WINDER Performed at: 01 - [facility] [address] [place], [place] [id number] Plant Superintendent: Aleajndro Doshi PhD, Phone: [phone] Tito Schwartz MD LAB - CHEMISTRY ORDERABLES Fi nal Result Performing Organization Address City/[facility]/ZIP Co de Phone Number [facility] ([facility]) [address] [place] [address], [facility] * IMMUNOFIXATION BLOOD (12/18/2024 9:51 AM HAND TUBE WINDER) [facility] Immunofixation Serum Normal Pattern Normal Pattern 12/19/2024 3:30 PM [employer]BE [employer]ER [facility] Comment: No monoclonal immunoglobulin detected by serum immunosubtraction. Margie Rinaldi PhD, [facility] Clinical Pulp Drier Firer stitch wheeler *The electrophoresis pattern and the interpretation have been reviewed and verified by the teaching physician. Blood BLOOD SPECIMEN / Unknown Lab Venipuncture / Unknown 12/18/2024 9:51 AM [employer] [facility]ER 12/18/2024 10:16 AM [employer]BE [employer]ER Tito Schwartz MD LAB - CHEMISTRY ORDERABLES Fi nal Result Performing Organization Address City/[facility]/ZIP Co de Phone Number [facility] [address] [place] [address], [facility] [phone] * ANCA VASCULITIS PANEL (12/18/2024 9:51 AM HAND TUBE WINDER) [facility] Myeloperoxidase Antibody 0 0 - 19 AU/mL 12/21/2024 12:18 PM HAND TUBE WINDER [employer] ([facility]) Comment: INTERPRETIVE INFORMATION: Myeloperoxidase Abs, IgG 19 AU/mL or Less ......... Negative 20-25 AU/mL .............. Equivocal 26 AU/mL or Greater ...... Positive Approximately 90% of patients with a P-ANCA pattern by IFA have antibodies specific for MPO. Serine Proteinase 3 IgG 3 0 - 19 AU/mL 12/21/2024 12:18 PM HAND TUBE WINDER [employer] ([facility]) Comment: INTERPRETIVE INFORMATION: Serine Proteinase 3, IgG 19 AU/mL or Less ........ Negative 20-25 AU/mL ............. Equivocal 26 AU/mL or Greater ..... Positive Approximately 85% of patients with a C-ANCA pattern by IFA have antibodies specific for PR3. ANCA Titer IFA <1:20 <1:20 12/21/2024 12:18 PM HAND TUBE WINDER [facility] ([facility]) ANCA Pattern IFA None Detected None Detected 12/21/2024 12:18 PM HAND TUBE WINDER [facility]) Comment: INTERPRETIVE INFORMATION: ANCA IFA Pattern Neutrophil Cytoplasmic Antibodies (C-ANCA = granular cytoplasmic staining, P-ANCA = perinuclear staining) are found in the serum of over 90 percent of patients with certain necrotizing systemic vasculitides, and usually in less than 5 percent of patients with collagen vascular disease or arthritis. Performed By: [facility] [address] [place] [address] Planner Scheduler: Tucker Hernandez MD, PhD CLIA Number: [id number] Blood BLOOD SPECIMEN / Unknown Lab Venipuncture / Unknown 12/18/2024 9:51 AM HAND TUBE WINDER 12/18/2024 10:55 AM HAND TUBE WINDER Tito Schwartz MD LAB - CHEMISTRY ORDERABLES Fi nal Result [facility]) [address] [place] [address] * CHERYL BLOOD SCREEN W/REFLEX TITER (12/18/2024 9:51 AM HAND TUBE WINDER) CHERYL IgG None Detected None Detected 12/20/2024 5:47 AM HAND TUBE WINDER [facility] [employer] ([facility]) Comment: If suspicion of connective tissue disease is strong and CHERYL EIA is negative, consider testing for CHERYL by IFA ([id number]). INTERPRETIVE INFORMATION: Anti-Nuclear Antibodies (CHERYL), IgG by ERNESTO Antinuclear Antibodies (CHERYL), IgG by ERNESTO: CHERYL specimens are screened using enzyme-linked immunosorbent assay (ERNESTO) methodology. All ERNESTO results reported as Detected are further tested by indirect fluorescent assay (IFA) using HEp-2 substrate with an IgG-specific conjugate. The CHERYL ERNESTO screen is designed to detect antibodies against dsDNA, histones, SS-A (Ro), SS-B (La), Richey, Richey/DELIMBER OPERATOR, Scl-70, More-1, centromeric proteins, other antigens extracted from the HEp-2 cell nucleus. CHERYL ERNESTO assays have been reported to have lower sensitivities than CHREYL IFA for systemic autoimmune rheumatic diseases (SARD). Negative results do not necessarily rule out SARD. Performed By: [facility] [address] [place] [address] Planner Scheduler: Tucker Hernandez MD, PhD CLIA Number: [id number] Blood BLOOD SPECIMEN / Unknown Lab Venipuncture / Unknown 12/18/2024 9:51 AM HAND TUBE WINDER 12/18/2024 10:16 AM HAND TUBE WINDER Tito Schwartz MD LAB - CHEMISTRY ORDERABLES Fi nal Result [facility] ([facility]) [address] [place] [address], [facility] * GLOMERULAR BASE MEMBRANE ANTIBODY IGG (12/18/2024 9:51 AM HAND TUBE WINDER) GBM Antibody IgG (EU) 0 0 - 19 AU/mL 12/21/2024 12:22 PM HAND TUBE WINDER [facility] ([facility]) Comment: INTERPRETIVE INFORMATION: GBM Ab, IgG [...] and assessment of renal prognosis. Performed By: [facility] [address] [place] [address] Planner Scheduler: Tucker Hernandez MD, PhD CLIA Number: [id number] Blood BLOOD SPECIMEN / Unknown Lab Venipuncture / Unknown 12/18/2024 9:51 AM HAND TUBE WINDER 12/18/2024 10:16 AM HAND TUBE WINDER Tito Schwartz MD LAB - CHEMISTRY ORDERABLES Fi nal Result [employer] [facility]) [address] [place] [address] * DNA ANTIBODY DOUBLE STRANDED (12/18/2024 9:51 AM HAND TUBE WINDER) dsDNA Antibody 10 0 - 24 IU 12/20/2024 12:22 AM HAND TUBE WINDER [employer] ([facility]) Comment: INTERPRETIVE INFORMATION: Double-Stranded DNA (dsDNA) Ab IgG ERNESTO 24 IU or less........Negative 25-30 IU.............Borderline Positive 30-60 IU.............Low Positive 60-200 IU............Positive 201 IU or greater....Strong Positive Positivity for anti-double stranded DNA (anti-dsDNA) IgG antibody is a diagnostic criterion of systemic lupus erythematosus (SLE). Specimens are initially screened by enzyme-linked immunosorbent assay (ERNESTO). If ordered as reflex ([id number]), positive ERNESTO results (>24 IU) will be [...] recommendations for testing may be found at [email or web address]. Performed by [facility], [address] [place] [address] [email or web address], Balaji Torres MD, Lab. Director [place] Number: [id number] Blood BLOOD SPECIMEN / Unknown Lab Venipuncture / Unknown 12/18/2024 9:51 AM HAND TUBE WINDER 12/18/2024 10:16 AM HAND TUBE WINDER Tito Schwartz MD LAB - HEMATOLOGY ORDERABLES F inal Result [facility]) [address] * (ABNORMAL) KAPPA/LAMBDA LITE CHAIN FREE PANEL (12/18/2024 9:51 AM HAND TUBE WINDER) Pathologist [facility] [place] Quant Free Light Chain 20.59(H) 3.30 - 19.40 mg/L 12/20/2024 5:06 AM HAND TUBE WINDER [facility] ([facility]) Comment: INTERPRETIVE INFORMATION: [place] Qnt Free Light Chains Undetected antigen excess is a rare event but cannot be excluded. Free light chain results should always be interpreted in conjunction with other clinical and laboratory findings. Lambda Free Light Chain Quantitative 16.76 5.71 - 26.30 mg/L 12/20/2024 5:06 AM HAND TUBE WINDER [facility] ([facility]) Comment: INTERPRETIVE INFORMATION: Lambda Qnt Free Light Chains Undetected antigen excess is a rare event but cannot be excluded. Free light chain results should always be interpreted in conjunction with other clinical and laboratory findings. [place]/Lambda Free Light Chain ratio 1.23 0.26 - 1.65 12/20/2024 5:06 AM HAND TUBE WINDER [facility] ([facility]) Comment: Performed By: [facility] [address] [place] [address] Planner Scheduler: Tucker Hernandez MD, PhD CLIA Number: [id number] Blood BLOOD SPECIMEN / Unknown Lab Venipuncture / Unknown 12/18/2024 9:51 AM HAND TUBE WINDER 12/18/2024 10:16 AM HAND TUBE WINDER us Tito Schwartz MD LAB - CHEMISTRY ORDERABLES Fi nal Result [facility]) [address] [place] [address], [facility] * CBC W/O DIFFERENTIAL (12/18/2024 9:51 AM HAND TUBE WINDER) WBC 4.8 4.0 - 10.7 x10E9/L 12/18/2024 10:45 AM HAND TUBE WINDER [facility] RBC Count 4.80 3.90 - 5.20 x10E12/L 12/18/2024 10:[address] [facility] Hemoglobin 15.6 11.9 - 15.8 g/dL 12/18/2024 10:[address] [facility] Hematocrit 45.8 34.8 - 46.1 % 12/18/2024 10:[address] [facility] MCV 95.4 80.0 - 98.0 fL 12/18/2024 10:[address] [facility] MCH 32.5 26.7 - 33.6 pg 12/18/2024 10:[address] [facility] MCHC 34.1 31.7 - 36.3 g/dL 12/18/2024 10:[address] [facility] RDW-CV 13.4 11.3 - 14.8 % 12/18/2024 10:[address] [facility] Platelet Count 225 150 - 420 x10E9/L 12/18/2024 10:[address] [facility] MPV 9.9 7.8 - 11.4 fL 12/18/2024 10:[address] [facility] Blood BLOOD SPECIMEN / Unknown Lab Venipuncture / Unknown 12/18/2024 9:51 AM HAND TUBE WINDER 12/18/2024 10:35 AM HAND TUBE WINDER Tito Schwartz MD LAB - HEMATOLOGY ORDERABLES F inal Result [address] [address], [place] [phone] * COMPLEMENT C4 (12/18/2024 9:51 AM HAND TUBE WINDER) Complement C4 43 15 - 57 mg/dL 12/18/2024 11:[address] [facility] Blood BLOOD SPECIMEN / Unknown Lab Venipuncture / Unknown 12/18/2024 9:51 AM HAND TUBE WINDER 12/18/2024 10:34 AM HAND TUBE WINDER Tito Schwartz MD LAB - SEROLOGY ORDERABLES Fin al Result [address] [address] [phone] * (ABNORMAL) RENAL FUNCTION PANEL (12/18/2024 9:51 AM [facility]) BUN 11 7 - 26 mg/dL 12/18/2024 11:[address] [facility] Creatinine 0.93 0.56 - 0.96 mg/dL 12/18/2024 11:[address] [facility] Sodium 138 136 - 145 mmol/L 12/18/2024 11:[address] [facility] Potassium 3.6 3.5 - 4.5 mmol/L 12/18/2024 11:[address] [facility] Chloride 103 98 - 107 mmol/L 12/18/2024 11:[address] [facility] CO2 23 22 - 29 mmol/L 12/18/2024 11:[address] [facility] Glucose 85 70 - 99 mg/dL 12/18/2024 11:[address] [facility] Albumin 4.3 3.4 - 5.0 g/dL 12/18/2024 11:[address] [facility] Calcium 10.4(H) 8.4 - 10.2 mg/dL 12/18/2024 11:[address] [facility] Phosphorus 3.3 2.9 - 5.1 mg/dL 12/18/2024 11:[address] [facility] Anion Gap 12 6 - 16 12/18/2024 11:[address] [facility] BUN/Creatinine Ratio 12 7 - 23 12/18/2024 11:[address] [facility] Osmolality Calculated 285 275 - 295 mOsm/kg 12/18/2024 11:[address] [facility] eGFR by CKD-EPI 68(L) >=90 mL/min/1.7 3 m2 12/18/2024 11:[address] [facility] Blood BLOOD SPECIMEN / Unknown Lab Venipuncture / Unknown 12/18/2024 9:51 AM [facility] 12/18/2024 10:34 AM [facility] us Tito Schwartz MD LAB - CHEMISTRY ORDERABLES Fi nal Result [address] [address], [facility] [phone] * COMPLEMENT C3 (12/18/2024 9:51 AM HAND TUBE WINDER) Complement C3 161 82 - 193 mg/dL 12/18/2024 11:09 AM HAND TUBE WINDER [facility] Blood BLOOD SPECIMEN / Unknown Lab Venipuncture / Unknown 12/18/2024 9:51 AM HAND TUBE WINDER 12/18/2024 10:34 AM HAND TUBE WINDER us Tito Schwartz MD LAB - CHEMISTRY ORDERABLES Fi nal Result [address] [address], [facility] [phone] * CT Chest Abdomen Pelvis W Cont (12/18/2024 9:15 AM HAND TUBE WINDER) Anatomical Region Laterality Modality Chest, Abdomen, Pelvis Computed Tomography 12/18/2024 9:27 AM HAND TUBE WINDER Impressions 12/18/2024 10:32 AM HAND TUBE WINDER Impression: 1.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 2.No evidence of metastatic disease within the chest, abdomen, or pelvis. > Dictated by Florentino Duncan MD, (residential instructor). I, Maribel Reyes MD have personally reviewed and interpreted this examination/study. > Interpreting Provider: Maribel Reyes MD on 12/18/2024 10:32 AM Narrative 12/18/2024 10:32 AM HAND TUBE WINDER PROCEDURE: CT CHEST ABDOMEN PELVIS W CONT, DATE/TIME OF EXAM: 12/18/2024 9:16 AM, LOCATION [facility] INDICATION: C78.02: Malignant neoplasm metastatic [...] DATE/TIME OF EXAM: 12/18/2024 9:16 AM, LOCATION [facility] INDICATION: C78.02: Malignant neoplasm metastatic [...] orpelvis. > Dictated by Florentino Duncan MD, (residential instructor). I, Maribel Reyes MD have personally reviewed and interpreted this examination/study. > Interpreting Provider: Maribel Reyes MD on 510:32 AM us Ronnie Mcqueen MD CT ORDERABLES Final Result * (ABNORMAL) CREATININE - POCT INTERFACED (12/18/2024 9:02 AM HAND TUBE WINDER) Creatinine POCT 0.75 0.30 - 1.30 mg/dL 12/18/2024 9:08 AM [facility] eGFR 88(L) >=90 mL/min/1.7 3 m2 12/18/2024 9:[address] [facility] Blood BLOOD SPECIMEN / Unknown 12/18/2024 9:02 AM HAND TUBE WINDER 12/18/2024 9:08 AM HAND TUBE WINDER us Ronnie Mcqueen MD LAB - POINT OF CARE ORDERABLES F inal Result [facility] [address] [place] [address], [facility] [phone] * HEPATITIS C RNA QUANTITATIVE (03/17/2021 10:19 AM CDT) [facility] Hepatitis C RNA PCR, Interp Not detected Not detected 03/21/2021 3:48 PM CDT [facility] Blood BLOOD SPECIMEN / Unknown Lab Venipuncture / Unknown 03/17/2021 10:19 AM CDT 03/17/2021 10:35 AM CDT Narrative [facility] - 03/21/2021 3:48 PM CDT The Hepatitis C viral (HCV) RNA analysis utilized a serum sample, real-time reverse geographic analyst PCR, and is reported as Not Detected, [...] the isolation of HCV RNA with reverse geographic analyst of genomic HCV RNA followed by real-time PCR in the presence of an unrelated RNA internal control. The internal control ensures that RNA is isolated, and that no general significant inhibitors of the RT-PCR process are present. The analysis was performed using a U.S. FDA approved test methodology ([employer] Real Time HCV). Jessica Padron IN HOUSE COUNSEL-LOCK UP WORKER LAB - CHEMISTRY HELENA LANDA Final Result [facility] [address] [place] [address], [facility] [phone] from Last 3 Months or Most Recently Relevant to Health Maintenance Insurance [employer] SELF PAY NO INSURANCE Member Subscriber Plan / Payer (Ef fective for All Dates) Name:Shubham Shoemaker Member ID:Not on file Relation to Subscriber:Not on file Name:SHUBHAM SHOEMAKER Subscriber ID:Not on file (Home) Address: [address] [place] [address] Payer ID:Not on file Group ID:Not on file Type:Self Pay Address: [place], [place] Advance Directives * Full Code (Latest Code Status on File) Date Activated Date Inactivated Comments 01/01/2020 1:07 PM 01/02/2020 11:33 AM Care Teams Linoleum Printer Relationship Specialty Start Date End Date Myriam Jorgensen MD [address] [place] [address] PCP - General 10/16/22
--- OUTSIDE RECORDS SUMMARY | 2025-03-17 01:17 | XMS_ITS | Clinical Summary ---
Author Organization [facility] Address [address] [facility] [address] Care Team Providers Care Gasket Winder Name Role Phone Unavailable Primary Care Provider [...] Abstract 02/20/2025 2:30 PM CDT Office Visit [facility] [place] [address] [place] [address] Negro Ann MD Malignant neoplasm [...] Description 04/09/2025 10:00 AM CDT Office Visit [facility] [place] [address] [facility] [address] [place] [address] Negro Ann MD [address] [facility] [address] [place] [address] Health Maintenance Due Date Last [...] PART A HOSPITAL ONLY AETNA SIGNATURE ADMIN [facility]
--- OUTSIDE RECORDS SUMMARY | 2025-03-17 01:17 | XMS_ITS ---
Author Organization [facility] Address [address] [place] [address] Care Team Providers Care Executive Staff Assistant Name Role Phone Myriam Jorgensen MD Primary Care Provider [phone] Active Problems Problem Noted Date Diagnosed Date Gilbert syndrome 06/27/2022 Elevated liver enzymes 03/17/2021 Cancer, metastatic to lung 11/03/2019 Nonspecific abnormal electrocardiogram (ECG) (EK G) 11/03/2019 S/p nephrectomy 09/23/2019 Primary osteoarthritis of right hip 06/02/2019 Overview (03/17/2021): Added automatically from request for surgery [id number] Personal history of malignant neoplasm of breast [...]
--- OUTSIDE RECORDS SUMMARY | 2025-03-17 01:17 | XMS_ITS | Clinical Summary ---
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 Active amLODIPine (NORVASC) 10 mg tablet TK 1 T PO QD 0 Active Active Problems Problem Noted Date Diagnosed Date S/p nephrectomy 09/23/2019 Primary osteoarthritis of right hip 06/02/2019 Overview (06/02/2019): Added automatically from request for surgery [id number] Primary malignant neoplasm 02/01/2014 Other pulmonary embolism [...] on file Legal Sex Female 11:13 AM CRIME VICTIM SPECIALIST Gender Identity Not on file Sexual Orientation Not on file Obstetrics History Last Filed Vital Signs Vital Sign Reading Time Taken Comments Blood Pressure 127/58 09/24/2019 2:58 PM CRIME VICTIM SPECIALIST Pulse 74 09/24/2019 2:58 PM CRIME VICTIM SPECIALIST Temperature 36.8 C (98.2 F) 09/24/2019 11:27 AM CRIME VICTIM SPECIALIST Respiratory Rate 18 09/24/2019 11:27 AM CRIME VICTIM SPECIALIST Oxygen Saturation 96% 09/24/2019 2:58 PM CRIME VICTIM SPECIALIST Inhaled Oxygen Concentration - - Weight 86.3 kg (190 lb 3.2 oz) 10/19/2020 9:55 A M CRIME VICTIM SPECIALIST Height 161.3 cm (5' 3.5 ) 10/19/2020 9:55 AM CRIME VICTIM SPECIALIST Body Mass Index 33.16 10/19/2020 9:55 AM CRIME VICTIM SPECIALIST Plan of Treatment Health Maintenance Due Date [...] Completed 08/25/2021 Medical Devices Implanted Type Area Mirror Machine Feeder Device Identifier Shelf Expiration Date Model / Serial / Lot [employer] [id number] Screw Bone Trident Ii L25mm Od6.5mm Low Profile Hexagonal Sterile - S0 - [id number] Implanted:Qty: 1 on 09/23/2019 by Heber Whittaker MD at [facility] Screw Right: Hip [employer] [id number] 05/05/2024 0759-4853 / 0 / [id number] Description: Hip Left: Hip [employer] 4675-4122 Screw Bone Trident Ii L30mm Od6.5mm Low Profile Hexagonal Sterile - S0 - [id number] Implanted:Qty: 1 on 09/23/2019 by Heber Whittaker MD at [facility] Right: Hip [employer] [id number] 05/27/2024 9109-3664 / 0 / [id number] Description: [employer] 702-04-58f Shell Acetabular Trident Ii Tritanium F Od58mm Hip 5 Screw Hole Cluster Sterile - S0 - [id number] Implanted:Qty: 1 on 09/23/2019 by Heber Whittaker MD at [facility] Right: Hip [employer] [id number] 04/14/2024 702-04-58F / 0 / [id number] Description: [employer] 623-00-36f 36mm 7.9mm Hip 0d F Liner Acetabular X3 - S0 - [id number] Implanted:Qty: 1 on 09/23/2019 by Heber Whittaker MD at [facility] Right: Hip [employer] [id number] 06/14/2024 623-00-36F / 0 / [id number] Description: [employer] [id number] Accolade 102mm 30mm Modular Hip 127d 3 Taper Stem Femoral Sterile - S0 - [id number] Implanted:Qty: 1 on 09/23/2019 by Heber Whittaker MD at [facility] Right: Hip [employer] [id number] / 0 / [id number] Description: [employer] 6570-0-236 V40 36mm Anatomic Hip +5mm Offset Taper Head Femoral Biol[employer] Delta - [id number] Implanted:Qty: 1 on 09/23/2019 by Heber Whittaker MD at [facility] Right: Hip [employer] [id number] 07/29/2024 6570-0-236 / / [id number] Description:kf Insurance [employer] [facility] Advance Directives For more information, please contact: [phone] * Full Code (Latest Code Status on File) Date Activated Date Inactivated Comments 09/23/2019 4:16 PM 09/24/2019 10:29 PM Care Teams Composition Mixer Relationship Specialty Start Date End Date Marycarmen Ruiz MD PCP - General Family Practice 04/28/19
--- OUTSIDE RECORDS SUMMARY | 2025-03-17 01:17 | XMS_ITS | Referral Summary ---
Author Organization [facility] Address [address] [place] [address] Care Team Providers Care Cryolite Recovery Operator Name Role Phone Marycarmen Ruiz MD Primary Care Provider [phone] Allergies No known active allergies Medications atorvastatin (LIPITOR) 10 mg tabletIndicatio ns:hyperlipidem ia Take 10 mg by mouth every morning 6 Active losartan (COZAAR) 100 mg tabletIndicatio ns:hypertension Take 100 mg by mouth every morning 6 Active levothyroxine (SYNTHROID) 25 mcg tablet Take 25 mcg by mouth fish header before breakfast Active amLODIPine (NORVASC) 10 mg tablet TK 1 T PO QD 0 Active Active Problems Problem Noted Date Diagnosed Date S/p nephrectomy 09/23/2019 Primary osteoarthritis of right hip 06/02/2019 Overview (06/02/2019): Added automatically from request for surgery [id number] Primary malignant neoplasm 02/01/2014 Other pulmonary embolism [...] on file Legal Sex Female 11:13 AM VOTATOR MACHINE OPERATOR Gender Identity Not on file Sexual Orientation Not on file Last Filed Vital Signs Vital Sign Reading Time Taken Comments Blood Pressure 127/58 09/24/2019 2:58 PM VOTATOR MACHINE OPERATOR Pulse 74 09/24/2019 2:58 PM VOTATOR MACHINE OPERATOR Temperature 36.8 C (98.2 F) 09/24/2019 11:27 AM VOTATOR MACHINE OPERATOR Respiratory Rate 18 09/24/2019 11:27 AM VOTATOR MACHINE OPERATOR Oxygen Saturation 96% 09/24/2019 2:58 PM VOTATOR MACHINE OPERATOR Inhaled Oxygen Concentration - - Weight 86.3 kg (190 lb 3.2 oz) 10/19/2020 9:55 A M VOTATOR MACHINE OPERATOR Height 161.3 cm (5' 3.5 ) 10/19/2020 9:55 AM VOTATOR MACHINE OPERATOR Body Mass Index 33.16 10/19/2020 9:55 AM VOTATOR MACHINE OPERATOR Plan of Treatment Not on file Medical Devices Implanted Type Area Fine Grade Operator Device Identifier Shelf Expiration Date Model / Serial / Lot [employer] [id number] Screw Bone Trident Ii L25mm Od6.5mm Low Profile Hexagonal Sterile - S0 - [id number] Implanted:Qty: 1 on 09/23/2019 by Heber Whittaker MD at [facility] Screw Right: Hip [employer] [id number] 05/05/2024 3009-8033 / 0 / [id number] Description: Hip Left: Hip [employer] 5595-0220 Screw Bone Trident Ii L30mm Od6.5mm Low Profile Hexagonal Sterile - S0 - [id number] Implanted:Qty: 1 on 09/23/2019 by Heber Whittaker MD at [facility] Right: Hip [employer] [id number] 05/27/2024 6961-4414 / 0 / 4P4D Description: [employer] 702-04-58f Shell Acetabular Trident Ii Tritanium F Od58mm Hip 5 Screw Hole Cluster Sterile - S0 - [id number] Implanted:Qty: 1 on 09/23/2019 by Heber Whittaker MD at [facility] Right: Hip [employer] [id number] 04/14/2024 702-04-58F / 0 / [id number] Description: [employer] 623-00-36f 36mm 7.9mm Hip 0d F Liner Acetabular X3 - S0 - [id number] Implanted:Qty: 1 on 09/23/2019 by Heber Whittaker MD at [facility] Right: Hip [employer] [id number] 06/14/2024 623-00-36F / 0 / [id number] Description: [employer] [id number] Accolade 102mm 30mm Modular Hip 127d 3 Taper Stem Femoral Sterile - S0 - [id number] Implanted:Qty: 1 on 09/23/2019 by Heber Whittaker MD at [facility] Right: Hip [employer] [id number] / 0 / [id number] Description: [employer] 6570-0-236 V40 36mm Anatomic Hip +5mm Offset Taper Head Femoral Biol[employer] Delta - [id number] Implanted:Qty: 1 on 09/23/2019 by Heber Whittaker MD at [facility] Right: Hip [employer] [id number] 07/29/2024 6570-0-236 / / [id number] Description:kf Insurance [facility] CHO[facility] PLUS [facility] CHO[facility] PLUS Advance Directives For more information, please contact: [phone] * Full Code (Latest Code Status on File) Date Activated Date Inactivated Comments 09/23/2019 4:16 PM 09/24/2019 10:29 PM Care Teams Cryolite Recovery Operator Relationship Specialty Start Date End Date Marycarmen Ruiz MD PCP - General Family Practice 04/28/19
--- OUTSIDE RECORDS SUMMARY | 2025-03-17 01:17 | XMS_ITS | Encounter Summary ---
Author Organization [facility] Address [address] [place] [address] Care Team Providers Care Emt Driver Name Role Phone Marycarmen Pascal MD Primary [...] RN Unavailable Unavailable Tito Schwartz MD Unavailable [phone] Encounter Details Date Type Department Care Team (Late st Contact Info) Description 01/06/2020 Lab Requisition [facility] [address] [place] [address] Johnie Mendiola MD [address] [place] [address] Social History Tobacco Use Types Packs/Day Years Used Date Smoking Tobacco: Former Cigarettes Q uit: 07/28/1978 Smokeless Tobacco: Never Comments:only smoked occ in college Alcohol Use Standard Drinks/Week Comments Yes 1.7 (1 standard drink = 0.6 oz p ure alcohol) occ Comments Unknown Sex and Gender Information Value Date Recorded Sex Assigned at Not on file Legal Sex Female 5:40 PM PROGRAMMING DEVELOPMENT PROJECT MANAGER Gender Identity Female 02/13/2024 7:42 AM CDT [...] Info) Description 04/02/2025 10:00 AM CDT Appointment [facility] CAT SCAN [address] [place] [phone] Ronnie Mcqueen MD [facility] [place] [address] 04/07/2025 9:30 AM CDT Appointment [facility] RAD ONC [facility] [place] [address] Ronnie Mcqueen MD [facility] [address] 04/14/2025 1:20 PM CDT Office Visit [facility] - Hematology/Oncology [address] [place] [phone] Wai Tse MD [address] [place] [address] OF HEMATOLOGY & [place] [address] 07/14/2025 9:00 AM CDT Office Visit [facility] - Nephrology [address] [facility] [place] [phone] Tito Schwartz MD [address] [place] [id number] documented as of this encounter Procedures Procedure Name Priority Date/Time Associated Diagnosis Comments SLIDE PREP HISTOLOGY Routine 01/01/2020 8:42 AM PROGRAMMING DEVELOPMENT PROJECT MANAGER documented in this encounter Results * SLIDE PREP HISTOLOGY (01/01/2020 8:42 AM PROGRAMMING DEVELOPMENT PROJECT MANAGER) Client Specimen ID # [id number] 01/07/2020 6:02 PM PROGRAMMING DEVELOPMENT PROJECT MANAGER [facility] Number of Blocks Received 0 01/07/2020 6:02 PM PROGRAMMING DEVELOPMENT PROJECT MANAGER [facility] Number of Slides 1 01/07/2020 6:02 PM PROGRAMMING DEVELOPMENT PROJECT MANAGER [facility] Number of Control Slides 1 01/07/2020 6:02 PM PROGRAMMING DEVELOPMENT PROJECT MANAGER [facility] Pathology/Cytolo gy BIOPSY OF LUNG / Unknown 01/01/2020 8:42 AM PROGRAMMING DEVELOPMENT PROJECT MANAGER 01/06/2020 3:30 PM PROGRAMMING DEVELOPMENT PROJECT MANAGER us Imsarthak Baum MD LAB - PATHOLOGY/CYTOLOGY ORD ERABLES Final Result [facility] [address] [facility] [place] [address], [facility] [phone] documented in this encounter Visit Diagnoses Not on filedocumented in this encounter Care Teams Emt Driver Relationship Specialty Start Date End Date Marycarmen Pascal MD PCP - General 03/27/19 06/21/21 Myriam Jorgensen MD [address] [place] [address] PCP - General Family Medicine 06/22/21 09/03/21 Marycarmen Pascal MD PCP - General 09/04/21 10/18/21 [place] [address] [place] [address] PCP - General Family Medicine 10/19/21 10/19/21 Marycarmen Pascal MD PCP - General 10/20/21 12/08/21 [place] [address] [place] [address] PCP - General Family Medicine 12/09/21 10/11/22 [place] [address] [place] [address] PCP - General Physician Teacher Aide 10/12/22 10/15/22 [place] [address] [place] [address] PCP - General 10/16/22 Nakita Kelly, RN Registered Nurse Hepatology 01/13/25 02/09/25 Tito Schwartz MD [address] OF [facility] [place], [place] Nephrology 01/13/25 02/09/25 documented as of this encounter
[2025-03-17] MEDS: ACETAMINOPHEN 500 MG TABLET 1000 MG PO (06:30)
[2025-03-17] MEDS: LIDOCAINE/PRILOCAINE CREAM 2.5-2.5% TUBE 1 EACH TOPICAL (06:30)
--- NOTE | 2025-03-17 07:03 | WPDHPUPDATE1 ---
History and Physical Update Update Date/Time: 03/17/25 07:03 - Right total mastectomy, right sentinel lymph node biopsy, injection of Lymphoseek and methylene blue for sentinel lymph node biopsy, and possible adjacent tissue transfer. History and Physical has been reviewed, including an updated exam of the patient. There are NO changes in the patient's condition. Risks, benefits, and alternatives have been discussed and questions answered. Patient agrees to proceed with procedure.
--- NOTE | 2025-03-17 07:20 | P.PNAN_ITS ---
Anes - Initial Pre Proc Eval Procedure: Operation Date: 03/17/25 07:30 Proposed Procedures p Right Total Mastectomy, Right [place] Lymph Node Biopsy, Injection of Lymphoseek and Methylene Blue for [place] Node Mapping, Possible Adjacent Tissue Transfer - Brenda Castro MD Date/Time: 03/17/25 07:20 Surgeon: Brenda Castro MD Pre Op Diagnosis: invasive ductal CA right breast Patient Data Age: 65 Gender: F Height: 1.65 m Weight: 90.75 kg Allergies Allergy/AdvReac Type Severity Reaction Status Date / Time hydrochlorothiazide AdvReac Severe elevated Verified 03/10/25 07:55 sodium levels Home Medications ?Medication ?Instructions ?Recorded ?Confirmed ?Type amlodipine 10 mg tablet 10 mg PO DAILY 10/05/20 03/02/25 History multivitamin 1 tablet PO DAILY 10/05/20 03/02/25 History bevacizumab 25 mg/mL intravenous IV .q3w 10/05/21 10/30/23 History solution carvedilol phosphate 20 mg 20 mg PO HS 10/16/23 03/02/25 History capsule,ext.[id number] multiphase carvedilol phosphate 10 mg 10 mg PO HS 10/20/24 03/02/25 History capsule,ext.[id number] multiphase losartan 100 mg tablet 100 mg PO DAILY #90 tabs 10/27/24 03/02/25 Rx empagliflozin 10 mg tablet 10 mg PO DAILY #90 tabs 12/28/24 03/02/25 Rx (Jardiance) rosuvastatin 20 mg tablet (Crestor) 20 mg PO DAILY #90 tabs 02/01/25 03/02/25 Rx levothyroxine 75 mcg tablet 75 mcg PO DAILY #90 tabs 03/16/25 Rx (Levo-T) Patient hx anesthesia problems: none Family hx anesthesia problems: none Results Review: All pre-operative results and documents have been reviewed as part of the pre- operative evaluation. [facility] Past Medical History Medical History Benign hypertension Cancer of breast Hearing loss Hypercholesterolemia Hyperlipidemia Hypertension Renal cell cancer Surgical History Surgical History History of lumpectomy (~06/22/16) with sentinel lymph node biopsy History of radical nephrectomy (~05/12/15) right S/P removal of parathyroid gland Family History Family History Father Hypertension Family history of Alzheimer's disease Mother Hypertension Grandparent Carcinoma of colon Other Family history of arthritis Social History Social History (Updated 01/19/25 @ 08:04 by Serene Harding [facility]) Smoking status: Never smoker Tobacco type: cigarettes Second hand tobacco smoke exposure: No Alcohol intake: current Drinks per week: 1 Substance use: never Substance use type: does not use Do You Feel Safe in your Home?: Yes Lack of Transportation: No Lack of Food: Never True Current Housing: I Have Housing Concerned About Future Housing: No Difficulty Paying Gas/Electric Bills: No Difficulty Paying for Meds: No Currently Unemployed: No Education: Bachelor's Degree Difficulty w/ Childcare or Family Care: No Living arrangements: with family Gender identity (if verbalized by the patient): Female Spiritual care concerns: No Anes - Eval Final PreProcedure Day of Procedure 03/17/25 07:20 Patient weight: normal Heart: regular rate and rhythm Lungs: clear to auscultation Airway: Mallampati scale class II Neurological: alert and oriented Last oral intake: >/= 8 hours ASA classification: III Emergent: no Anesthetic plan: proceed Anesthesia type and monitoring: general ETT and standard monitoring Results Review: All pre-operative results and documents have been reviewed as part of the pre- operative evaluation. Informed Consent: The patient's anesthetic plan and its attendant risks and benefits were discussed with the patient/family/POA. Questions were solicited and answers provided to the satisfaction of the patient/family/POA.
[2025-03-17] MEDS: LACTATED RINGERS 1,000 ML 30 ML IV CONT ×2 (07:21→10:06)
[2025-03-17] MEDS: ceFAZolin 2 GM/D5W 50 ML 2 GM/50 ML BAG IVPB (07:31)
[2025-03-17] MEDS: BUPIVACAINE/EPINEPHRINE 0.5% 30 ML VIAL INFILTRATE (08:02)
--- NOTE | 2025-03-17 09:58 | P.OP_ITS ---
Procedure Note - Detailed Date of Procedure 03/17/25 Pre-op Diagnosis 1. Invasive ductal CA right breast 2. 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 Right total mastectomy. 2. Right sentinel lymph node biopsy. 3. Injection of Lymphoseek for sentinel lymph node mapping. 4. Injection of methylene blue for dual tracing. 5. Adjacent tissue transfer 12 cm x 20 cm (total area of 240 cm sq) Surgeon Brenda Castro MD Water Gas Operator Melani Kunz PA-C Anesthesia General Description of Procedure Patient was identified in the preoperative holding area brought to the operating room suite.?I performed lymphoseek injection in the pre-operative area prior to bringing patient to the OR suite. She was placed supine operating table sequential compression devices were applied. General anesthesia was induced without difficulty.?Diluted methylene blue was injected into the periareolar skin in the subdermal plane as a dual tracer for sentinel lymph node mapping. Right chest and right axillary areas were prepped draped in sterile fashion. The sentimag probe was used to find the area of highest radio activity in the right axilla, and an incision was made overlying this area that was incorporated into the mastectomy incision.? Dissection was carried down through the subcutaneous tissue and the clavipectoral fascia was incised.? I was able to identify a node that was hot and blue.? This was gently grasped and excised using the LigaSure device.? The gamma probe was used to obtain account which was approximately [id number].? This was sent to pathology as a permanent specimen.? The gamma probe was again used to scan the axilla trying to identify another node that was at least 10% of the original sentinel lymph node count. No other node was found and the axilla was irrigated and hemostasis was assured.? The clavipectoral fascia was approximated with a running 3-0 Vicryl.? An elliptical incision encompassing the nipple areolar complex was made and dissection was carried down through the subcutaneous tissue and continued through the thin areolar tissue plane between the subcutaneous tissue with the breast tissue superiorly to the inferior border of the clavicle.? We then continued our dissection medially to the lateral aspect of the sternum, inferiorly to the inframammary fold and laterally to latissimus.? Once this was performed the breast tissue along with the pectoralis fascia was dissected off the pectoralis muscle posteriorly.? The mastectomy specimen was then marked short stitch superior long stitch lateral stitch lateral for orientation.? The specimen was then sent to pathology as a fresh specimen.? Hemostasis was assured. One round 15Fr drain was placed above the pectoralis muscle and secured to the skin with silk suture. ?Given the redundant skin flap inferiorly, decision was made to use the inferior skin flaps to create a clinton inferior mound and give a better contour to the chest.? The defect on the right side was 12cm x 20cm.? The inferior skin flap was de-epithelialized bilaterally and carefully tacked to the pectoralis muscle with interrupted 2-0 Vicryl.? The superior mastectomy flap was then advanced over the inferior flap and secured to the de-epitheralized inferior flap using 3-0 Vicryl interrupted for the deep dermal layer followed by a 4-0 Monocryl in a subcuticular running fashion.? Dermabond was applied followed by sterile compression dressing. All needles counts were correct as reported by the operating room staff. Patient tolerated the procedure well with no immediate complications. Melani Kunz PA-C assisted with retraction and positioning for the entirety of t he case. Estimated Blood Loss 20 Drains Yes Pathology Yes Complications No immediate complications Condition Stable Disposition PACU [facility] Billing Surgery - Charge Forward: Surgery Billing (CPT 52272, 03391 - 59, 17244 - 59, 37881 - 59, 13890 -59, 45533 - 59 x3))
[2025-03-17] MEDS: LACTATED RINGERS 1,000 ML 100 ML IV CONT (11:23)
[2025-03-17] MEDS: ACETAMINOPHEN 325 MG TABLET 650 MG PO ×3 (11:23→23:37)
--- NOTE | 2025-03-17 12:22 | ADMGEN ---
This patient, Suzette Shoemaker, was admitted to OB 2nd Floor Room 288-00. Patient/family oriented to hospital policies and general routines including ID bracelet, bed and alarms, visiting hours, pain management, procedures, bathroom and other care routines, personal items, smoking policy, room service/diet, and visiting hours. Information on how to activate the Rapid Response Team has been discussed. Patient/Family are encouraged to report perceived risks to care and to ask questions if they do not understand what they are told or what they should do.
[2025-03-17] MEDS: traMADol HCL (*CRX) 50 MG TABLET PO (17:11)
[2025-03-17] MEDS: DOCUSATE SODIUM 100 MG CAPSULE PO (17:11)
[2025-03-18 05:12] VITALS: BP 124/67; PULSE 62; RESP 16; TEMP 36.4; O2SAT 93
[2025-03-18] MEDS: LEVOTHYROXINE SODIUM 75 MCG TABLET PO (05:20)
[2025-03-18] MEDS: ACETAMINOPHEN 325 MG TABLET 650 MG PO ×2 (05:20→11:13)
[2025-03-18 07:30] VITALS: BP 120/68; PULSE 63; RESP 18; TEMP 36.3; O2SAT 95
[2025-03-18] MEDS: ROSUVASTATIN 20 MG TABLET PO (07:57)
[2025-03-18] MEDS: LOSARTAN POTASSIUM 100 MG TABLET PO (07:57)
[2025-03-18] MEDS: DOCUSATE SODIUM 100 MG CAPSULE PO (07:57)
[2025-03-18] MEDS: EMPAGLIFLOZIN 10 MG TABLET PO (07:57)
[2025-03-18] MEDS: amLODIPine BESYLATE 10 MG TABLET PO (07:58)
[2025-03-18 08:00] VITALS: PULSE 63; RESP 16; O2SAT 95
[2025-03-18] MEDS: MULTIVITAMINS THERAPEUTIC TAB (*BKC) 1 TABLET PO (08:01)
== END 2025-03-18 11:43 | disposition home or self-care (01) ==
LOC: ANHSURGERY 10:12 → ANHOB2 11:04
PROVIDERS: PCP Student in an Organized Health Care Education/Training Program; Visit Provider Surgery
PROC: (CPT 19303; principal; 2025-03-17 07:30)
DX: N60.21 Fibroadenosis of right breast (principal); N60.11 Diffuse cystic mastopathy of right breast; I10 Essential (primary) hypertension; E78.00 Pure hypercholesterolemia, unspecified; Z79.84 Long term (current) use of oral hypoglycemic drugs; Z98.890 Other specified postprocedural states; Z90.5 Acquired absence of kidney; Z85.528 Personal history of other malignant neoplasm of kidney; Z80.0 Family history of malignant neoplasm of digestive organs
CPT/HCPCS: 19303; 38525; 38900; 14301; 14302 ×5; 38792; 88305; 88307; 99199; A9270; A9520; J0690; J1100; J1171; J1596; J2405; J2704; J3010; J7120; Q9968

== ENCOUNTER 2025-06-04 14:56 | Outpatient (CLI) | payer OTHER, SELFPAY ==
--- OUTSIDE RECORDS SUMMARY | 2025-06-04 14:58 | XMS_ITS ---
Author Organization [facility] Address [address] [place] [address] Care Team Providers Care Food Expeditor Name Role Phone Myriam Jorgensen MD Primary Care Provider [phone] Active Problems Problem Noted Date Diagnosed Date Gilbert syndrome 06/27/2022 Elevated liver enzymes 03/17/2021 Cancer, metastatic to lung 11/03/2019 Nonspecific abnormal electrocardiogram (ECG) (EK G) 11/03/2019 S/p nephrectomy 09/23/2019 Primary osteoarthritis of right hip 06/02/2019 Overview (03/17/2021): Added automatically from request for surgery [id number] Personal history of malignant neoplasm of breast [...] mg or lessnivolumab (Opdivo) infusion Not Tolerated Eedr Dumont MD 4 of 16 cycles started [...] Entry Manual Entr y Dose Length Product 15,894.8 mGy-cm 15,894.8 mGy-cm 0 mGy-cm
--- OUTSIDE RECORDS SUMMARY | 2025-06-04 14:58 | XMS_ITS | Clinical Summary ---
Author Organization [facility] Address [address] [facility] [facility] [place] [address] Care Team Providers Care Optical Lathe Operator Name Role Phone Myriam Jorgensen MD Primary Care Provider [phone] Source Comments [facility],non-owned Affiliates and Associated Physician Practices is amultiple site organization consisting of ambulatory clinics and hospital sitesin [place], [place], [place] and [place]. This disclosure is being madepursuant to the Care Everywhere program and may not contain all information available regarding this patient. Last updated 18.[facility] Allergies Active Allergy Reactions Criticality Noted Date Comments Hydrochlorothiazide Other 05/10/2022 She has severe low sodium with dosing (from 139>>126 in 1 week) Medications * Be aware that medications may not be up to date on this document. Alwaysverify current medications with the patient. Multiple Vitamins-Minera ls (DAILY COMBO MULTI VITAMINS PO) Take 1 tablet by mouth once daily Active losartan (COZAAR) 100 MG tablet Take 1 (one) tablet by mouth once daily 3 Active rosuvastatin (Crestor) 20 MG tablet Take 1 (one) tablet by mouth once daily Active carvedilol CR 24hr (Coreg CR) 10 MG capsule Take 1 (one) capsule by mouth at bedtime Total dose = 30 mg nightly. 30 capsule 11 4 Active amLODIPine (Norvasc) 10 MG tabletIndicatio ns:Malignant neoplasm of right kidney, except renal pelvis (HCC),Hypertens ion, unspecified type TAKE 1 TABLET BY MOUTH EVERY DAY 90 tablet 3 4 Active levothyroxine (Synthroid) 75 MCG tablet Take 1 (one) tablet by mouth once daily 4 Active empagliflozin (Jardiance) 10 MG tablet TAKE 1 TABLET BY MOUTH DAILY 90 tablet 1 5 Active vitamin D3 (Cholecalcifero l) 25 MCG (1000 UNITS) tablet Take 1 (one) tablet by mouth once daily Active anastrozole (Arimidex) 1 MG tablet Take 1 (one) tablet by mouth once daily Active carvedilol CR 24hr (Coreg CR) 20 MG capsule TAKE 1 CAPSULE BY MOUTH AT BEDTIME 30 capsule 9 5 Active carvedilol CR 24hr (Coreg CR) 20 MG capsule Take 1 (one) capsule by mouth at bedtime 30 capsule 9 4 025 Discontinued Active Problems Problem Noted Date Diagnosed Date Gilbert syndrome 06/27/2022 Elevated liver enzymes 03/17/2021 Cancer, metastatic to lung 11/03/2019 Nonspecific abnormal electrocardiogram (ECG) (EK G) 11/03/2019 S/p nephrectomy 09/23/2019 Primary osteoarthritis of right hip 06/02/2019 Overview (03/17/2021): Added automatically from request for surgery [id number] Personal history of malignant neoplasm of breast 12/04/2014 Encounter for antineoplastic chemotherapy 2013 Malignant neoplasm of kidney excluding renal pel vis 09/25/2014 Primary malignant neoplasm 02/01/2014 Other pulmonary embolism without acute cor pulmo nale 06/17/2013 Encounters Date Type Department Care Team Description 06/03/2025 Refill [facility] - Hematology/Oncology [address] [place] [phone] Wai Tse MD Refill Request 05/27/2025 Refill [facility] - Hematology/Oncology [address] [place] [address] Wai Tse MD Refill Request 04/17/2025 Telephone [facility] - Hematology/Oncology [address] [place] [address] Chauncey Manuel RN Appointment 04/14/2025 1:20 PM CDT Office Visit [facility] - Hematology/Oncology [address] [place] [address] Wai Tse MD Metastatic renal cell carcinoma, unspecified laterality (HCC) (Primary Dx) 04/14/2025 12:46 PM CDT - 04/14/2025 11:59 PM CDT Hospital Encounter [facility] [address] [place] [address] Discharge Disposition: Home or Self Care 04/14/2025 12:45 PM CDT Hospital Encounter [facility] [address] [address] Discharge Disposition: Home or Self Care 04/14/2025 Travel 04/07/2025 9:17 AM CDT - 04/07/2025 11:59 PM CDT Hospital Encounter [facility] RAD ONC [address] [place] [address] Ronnie Mcqueen MD Discharge Disposition: Home or Self Care 04/02/2025 9:48 AM CDT - 04/02/2025 11:59 PM CDT Hospital Encounter [facility] CAT SCAN [address] [place] [address] Ronnie Mcqueen MD Discharge Disposition: Home or Self Care 04/02/2025 Travel from Last 3 Months Immunizations Immunization Administration Dates Next Due Covid Joshfire primary monoval ent 12+ yr 0.3mL Purple [...] on file Legal Sex Female 5:40 PM EAR MACHINE OPERATOR Gender Identity Female 02/13/2024 7:42 AM CDT Sexual Orientation Not on file 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 Not on file Not on file Last Filed Vital Signs Vital Sign Reading Time Taken Comments Blood Pressure 126/80 04/14/2025 1:19 PM CDT Pulse 65 04/14/2025 1:19 PM CDT Temperature 36.7 C (98 F) 04/14/2025 1:19 PM CDT Respiratory Rate 18 04/14/2025 1:19 PM CDT Oxygen Saturation 96% 04/14/2025 1:19 PM CDT Inhaled Oxygen Concentration - - Weight 90.9 kg (200 lb 6.4 oz) 04/14/2025 1:19 P M CDT Height 165.1 cm (5' 5) 01/13/2025 9:11 AM EAR MACHINE OPERATOR Body Mass Index 33.35 01/13/2025 9:11 AM EAR MACHINE OPERATOR Plan of Treatment Upcoming Encounters Date Type Department Care Team (Late st Contact Info) Description 07/14/2025 9:00 AM CDT Office Visit [facility] - Nephrology [address] [facility], [place] [phone] Tito Schwartz MD [address] [place] [address] 08/05/2025 10:00 AM CDT Appointment [facility] CAT SCAN [address] [place] [phone] Ronnie Mcqueen MD [address] [place] [address] 08/05/2025 11:00 AM CDT Appointment [facility]ATION [address] [facility]nd [place] [address] 08/05/2025 11:40 AM CDT Office Visit [facility] - Hematology/Oncology [address] [place] [phone] Wai Tse MD [address] [facility] HEMATOLOGY [place] [address] 08/13/2025 11:30 AM CDT Appointment [facility] RAD ONC [address] [place] [address] Ronnie Mcqueen MD [address] [place] [address] Health Maintenance Due Date Last Done Comments [...] 19+ 3-dose series) 09/22/2021 08/25/2021 COVID-19 VACCINE (4 - 2023- season) 2024 11/03/2021, 12/27/2020, 12/06/2020 DEPRESSION SCREENING 11/12/2024 INFLUENZA VACCINE (#1) 2025 2, 08/18/2021, 08/19/2020, Additional history exists SCREENING FOR DIABETES 12/18/2027 5, 08/20/2024, 07/30/2024, [...] Medication Management General On track( 9:04 AM EAR MACHINE OPERATOR) No Adeola Julio, RN Note: Expected end date: ongoing Interventions: Take all medications as prescribed Safety General On track( 9:04 AM EAR MACHINE OPERATOR) No Nakita Kelly, RN Note: Expected end [...] follow-up appointments General On track( 11:58 AM EAR MACHINE OPERATOR) No Nakita Kelly, psychiatric lpn Procedure Name Priority Date/Time Associated Diagnosis Comments URINALYSIS NO MICROSCOPIC NO CULTURE Routine 04/14/2025 12:47 PM CDT Gilbert syndrome CT CHEST ABDOMEN PELVIS W CONT Routine 04/02/2025 10:11 AM CDT Malignant neoplasm of right kidney, except renal pelvis (HCC) CREATININE - POCT INTERFACED Routine 04/02/2025 9:55 AM CDT RENAL FUNCTION PANEL Routine 12/18/2024 9:51 AM EAR MACHINE OPERATOR Proteinuria, unspecified type Metastatic renal cell carcinoma, unspecified laterality HEPATITIS C RNA QUANTITATIVE Routine 03/17/2021 10:19 AM CDT Elevated liver enzymes from Last 3 Months or Most Recently Relevant to Health Maintenance Results * (ABNORMAL) URINALYSIS NO MICROSCOPIC NO CULTURE (04/14/2025 12:47 PM CDT) Color UA Colorless(A ) Yellow, Straw 04/14/2025 1:00 PM CDT [facility] Clarity UA Clear Clear 04/14/2025 1:00 PM T [facility] Glucose UA 4+(A) Normal 04/14/2025 1:00 PM T [facility] Bilirubin UA Negative Negative 04/14/2025 1:00 PM [facility] Ketone UA Negative Negative 04/14/2025 1:00 PM [facility] Specific [place] UA <1.005(L) 1.005 - 1.030 04/14/2025 1:00 PM [facility] Blood UA Negative Negative 04/14/2025 1:00 PM [facility] pH UA 6.0 5.0 - 8.0 pH 04/14/2025 1:00 PM [facility] Protein UA Negative Negative 04/14/2025 1:00 PM [facility] Urobilinogen UA Normal Normal mg/dL 04/14/2025 1:00 PM [facility] Nitrite UA Negative Negative 04/14/2025 1:00 PM [facility] Leukocyte Esterase UA 25 LUCHO/uL(A) Negative 04/14/2025 1:00 PM [facility] Urine URINE SPECIMEN OBTAINED BY CLEAN CATCH PROCEDURE / Unknown Collection / Unknown 04/14/2025 12:47 PM CDT 04/14/2025 12:55 PM CDT us Wai Tse MD LAB - URINALYSIS ORDERABLES Fi nal Result [facility] [address] [place] [address], [facility] [phone] * CT Chest Abdomen Pelvis W Cont (04/02/2025 10:11 AM CDT) Anatomical Region Laterality Modality Chest, Abdomen, Pelvis Computed Tomography 04/02/2025 1:33 PM CDT Impressions 04/02/2025 1:44 PM CDT Impression: 1.Soft tissue stranding, fluid which is new along with overall reduction in the volume of the soft tissue within the right breast when compared to 12/18/2024 of uncertain etiology. These may reflect a recent surgery/procedure to this region versus underlying cellulitis. Correlate clinically. 2.Stable postsurgical changes related to right nephrectomy. 3.No evidence of new metastatic disease involving the chest abdomen or pelvis. > Interpreting Provider: Felipe Garsia on 04/02/2025 1:44 PM Narrative 04/02/2025 1:44 PM CDT PROCEDURE: CT CHEST ABDOMEN PELVIS W CONT, DATE/TIME OF EXAM: 04/02/2025 10:12 AM, LOCATION [facility] INDICATION: C64.1: Malignant neoplasm of right kidney, except renal pelvis (HCC) ADDITIONAL CLINICAL INFORMATION: Ordering Provider Reason For Exam: Metastatic RCC. On follow up. Technologist Note: Additional: COMPARISON: CT chest abdomen pelvis 12/18/2024. TECHNIQUE: CT of the chest, abdomen, and pelvis was performed after the uneventful administration of 100 mL of Isovue 370 intravenous contrast according to standard protocol. Findings: Chest: Lower Neck and Axillae: Normal. Lungs: Scattered areas of scarring and subsegmental atelectasis. A few calcified granulomas present. No suspicious pulmonary nodules are identified. No pleural fluid or pneumothorax is present. Heart and Pericardium: The cardiac chambers are normal in size. No pericardial fluid or thickening is present. The coronary arteries are atherosclerotic. Mediastinum and Damaris: No mediastinal hemorrhage is present. No enlarged lymph nodes are present. Thoracic Vasculature: The aorta and its branch vessels are atherosclerotic. Abdomen/pelvis: Liver: Multiple hepatic cysts appears similar to prior exam. Liver is otherwise within normal limits. Gallbladder and Bile Ducts: Normal. Spleen: Normal. Pancreas: Normal. Adrenals: Normal. Kidneys: Postsurgical changes related to right nephrectomy. Left kidney within normal limits. No abnormal soft tissue within the surgical bed in the right retroperitoneum. Bladder: Normal. Gastrointestinal: The stomach and visualized loops of small bowel are unremarkable. Colonic diverticulosis without evidence of diverticulitis is seen. Normal appendix. Mesentery/Peritoneum/Retroperitoneum: No free intraperitoneal air. No free fluid in the abdomen or pelvis. Reproductive Organs: No pelvic masses although evaluation of the pelvis is limited due to streak artifacts from adjacent bilateral hip arthroplasties. Abdominal Vasculature: Atherosclerotic calcification of the aorta and its branch vessels. Bones: Bone windows demonstrate no suspicious lytic or blastic lesions. Degenerative grade 1 degenerative anterolisthesis of L4 over L5. Bilateral hip arthroplasty present. Soft tissues: There is diffuse stranding involving the right breast soft tissues along with ill-defined fluid along the superior aspect superficial to the pectoral muscles with overall decrease in the volume of the right breast when compared to prior exam from 12/18/2024. Procedure Note Felipe Garsia MD - 04/02/2025 PROCEDURE: CT CHEST ABDOMEN PELVIS W CONT, DATE/TIME OF EXAM:04/02/2025 10:12 AM, LOCATION [facility] INDICATION: C64.1: Malignant neoplasm of right kidney, except renal pelvis (HCC) ADDITIONAL CLINICAL INFORMATION: Ordering Provider Reason For Exam: Metastatic RCC. On follow up. Technologist Note: Additional: COMPARISON: CT chest abdomen pelvis 12/18/2024. TECHNIQUE: CT of the chest, abdomen, and pelvis was performed after the uneventful administration of 100 mL of Isovue 370 intravenous contrast according to standard protocol. Findings: Chest: Lower Neck and Axillae: Normal. Lungs: Scattered areas of scarring and subsegmental atelectasis. A few calcified granulomas present. No suspicious pulmonary nodules are identified. No pleural fluid or pneumothorax is present. Heart and Pericardium: The cardiac chambers are normal in size. No pericardial fluid or thickening is present. The coronary arteries are atherosclerotic. Mediastinum and Damaris: No mediastinal hemorrhage is present. No enlarged lymph nodes are present. Thoracic Vasculature: The aorta and its branch vessels areatherosclerotic. Abdomen/pelvis: Liver: Multiple hepatic cysts appears similar to prior exam. Liver is otherwise within normal limits. Gallbladder and Bile Ducts: Normal. Spleen: Normal. Pancreas: Normal. Adrenals: Normal. Kidneys: Postsurgical changes related to right nephrectomy. Left kidney within normal limits. No abnormal soft tissue within the surgical bed in the right retroperitoneum. Bladder: Normal. Gastrointestinal: The stomach and visualized loops of small bowel are unremarkable. Colonic diverticulosis without evidence of diverticulitisis seen. Normal appendix. Mesentery/Peritoneum/Retroperitoneum: No free intraperitoneal air. Nofree fluid in the abdomen or pelvis. Reproductive Organs: No pelvic masses although evaluation of the pelvisis limited due to streak artifacts from adjacent bilateral hiparthroplasties. Abdominal Vasculature: Atherosclerotic calcification of the aorta andits branch vessels. Bones: Bone windows demonstrate no suspicious lytic or blastic lesions. Degenerative grade 1 degenerative anterolisthesis of L4 over L5.Bilateral hip arthroplasty present. Soft tissues: There is diffuse stranding involving the right breast soft tissues along with ill-defined fluid along the superior aspectsuperficial to the pectoral muscles with overall decrease in the volume of the right breast when compared to prior exam from 12/18/2024. Impression: 1.Soft tissue stranding, fluid which is new along with overall reductionin the volume of the soft tissue within the right breast when compared to 12/18/2024 of uncertain etiology. These may reflect a recent surgery/procedure to this region versus underlying cellulitis. Correlate clinically. 2.Stable postsurgical changes related to right nephrectomy. 3.No evidence of new metastatic disease involving the chest abdomen or pelvis. > Interpreting Provider: Felipe Garsia on 04/02/2025 1:44 PM us Ronnie Mcqueen MD CT ORDERABLES Final Result * (ABNORMAL) CREATININE - POCT INTERFACED (04/02/2025 9:55 AM CDT) Creatinine POCT 0.86 0.30 - 1.30 mg/dL 04/02/2025 10:02 AM CDT [facility] eGFR 74(L) >=90 mL/min/1.7 3 m2 04/02/2025 10:02 AM CDT [facility] Blood BLOOD SPECIMEN / Unknown 04/02/2025 9:55 AM CDT 04/02/2025 10:02 AM CDT us Ronnie Mcqueen MD LAB - POINT OF CARE ORDERABLES F inal Result [facility] [address] [place] [address], [facility] [phone] * (ABNORMAL) RENAL FUNCTION PANEL (12/18/2024 9:51 AM [facility]) BUN 11 7 - 26 mg/dL 12/18/2024 [...] Lab Venipuncture / Unknown 12/18/2024 9:51 AM [facility] 12/18/2024 10:34 AM EAR MACHINE OPERATOR Tito Schwartz MD LAB - CHEMISTRY ORDERABLES Fi nal Result [facility] [address] [place] [address], [place] [phone] * HEPATITIS C RNA QUANTITATIVE (03/17/2021 10:19 AM CDT) Hepatitis C RNA PCR, Interp Not detected Not detected 03/21/2021 3:48 PM CDT [facility] Blood BLOOD SPECIMEN / Unknown Lab Venipuncture / Unknown 03/17/2021 10:19 AM CDT 03/17/2021 10:35 AM CDT Narrative [facility] - 03/21/2021 3:48 PM CDT The Hepatitis C viral (HCV) RNA analysis utilized a serum sample, real-time reverse seat installer PCR, and is reported as Not Detected, [...] the isolation of HCV RNA with reverse seat installer of genomic HCV RNA followed by real-time PCR in the presence of an unrelated RNA internal control. The internal control ensures that RNA is isolated, and that no general significant inhibitors of the RT-PCR process are present. The analysis was performed using a U.S. FDA approved test methodology ([employer] Real Time HCV). Jessica Padron APRN-ANKUR LAB - CHEMISTRY HELENA LANDA Final Result [facility] [address] [place] [address], [place] [phone] from Last 3 Months or Most Recently Relevant to Health Maintenance Insurance [employer] SELF PAY NO INSURANCE Member Subscriber Plan / Payer (Ef fective for All Dates) Name:Shubham Lovelace Member ID:Not on file Relation to Subscriber:Not on file Name:SHUBHAM LOVELACE Subscriber ID:Not on file (Home) Address: [address] [place] [address] Payer ID:Not on file Group ID:Not on file Type:Self Pay Address: [place], [place] Advance Directives * Full Code (Latest Code Status on File) Date Activated Date Inactivated Comments 01/01/2020 1:07 PM 01/02/2020 11:33 AM Care Teams Optical Lathe Operator Relationship Specialty Start Date End Date Myriam Jorgensen MD [address] [place] [address] PCP - General 10/16/22
--- OUTSIDE RECORDS SUMMARY | 2025-06-04 14:58 | XMS_ITS | Encounter Summary ---
Author Organization [facility] Address [address] [facility] [place] [address] Care Team Providers Care Events And Promotions Assistant Name Role Phone Myriam Jorgensen MD Primary Care Provider [phone] Reason for Visit * Reason Comments Refill Request Encounter Details Date Type Department Care Team (Late st Contact Info) Description 06/03/2025 Refill [facility] - Hematology/Oncology [address] [place] [address] Wai Tse MD [address] [facility] OF HEMATOLOGY & [place] [address] Refill Request Social History Tobacco Use Types Packs/Day Years Used Date Smoking Tobacco: Former Cigarettes Q uit: 07/28/1978 Smokeless Tobacco: Never Comments:only smoked occ in college Alcohol Use Standard Drinks/Week Comments Yes 1.7 (1 standard drink = 0.6 oz p ure alcohol) occ Comments No Sex and Gender Information Value Date Recorded Sex Assigned at Not on file Legal Sex Female 5:40 PM CHILD NURSE Gender Identity Female 02/13/2024 7:42 AM CDT [...] Description 07/14/2025 9:00 AM CDT Office Visit [facility] - Nephrology [address] [facility], [place] [address] Tito Schwartz MD [facility] [place] [address] 08/05/2025 10:00 AM CDT Appointment [facility] CAT SCAN [address] [place] [address] Ronnie Mcqueen MD [address] [place] [address] 08/05/2025 11:00 AM CDT Appointment [facility] CARE DRAWSTATION [address] [facility], 2nd [place] [address] 08/05/2025 11:40 AM CDT Office Visit [facility] - Hematology/Oncology [address] [place] [phone] Wai Tse MD [address] [place] [address] DIV OF HEMATOLOGY & [place] [address] 08/13/2025 11:30 AM CDT Appointment [facility] [address] [place], [place] [phone] Ronnie Mcqueen MD [address] [place], [place] [phone] documented as of this encounter Goals Goal Patient Goal Type Associated Problems Recent Progress Patient-Stated? Author Medication Management General On track( 9:04 AM CHILD NURSE) No Adeola Julio, RN Note: Expected end date: ongoing Interventions: Take all medications as prescribed Safety General On track( 9:04 AM CHILD NURSE) Nakita Trujillo, RN Note: Expected end date: ongoing Interventions: [...] follow-up appointments General On track( 11:58 AM CHILD NURSE) No Nakita Kelly, RN documented as of this encounter Visit Diagnoses Not on filedocumented in this encounter Care Teams Events And Promotions Assistant Relationship Specialty Start Date End Date Myriam Jorgensen MD [address] [place] [address] PCP - General 10/16/22 documented as of this encounter
--- OUTSIDE RECORDS SUMMARY | 2025-06-04 14:59 | XMS_ITS | Clinical Summary ---
Author Organization [facility] [place] [facility] Address [address] [facility] [place] [address] Care Team Providers Care Bridal Consultant Name Role Phone Unavailable Primary Care Provider [...] Take 20 mg by mouth daily. Active Jardiance 10 mg tablet Take 10 mg by mouth daily. 02/09/2025 Active MULTIVITAMIN ORAL Take by mouth daily. Active levothyroxine 75 mcg tablet Take 75 mcg by mouth daily in the morning. Active anastrozole (Arimidex) 1 mg tablet Take 1 Tablet (1 mg) by mouth daily. 90 Tablet 2 04/09/2025 Active Active Problems No known active problems Encounters Date Type Department Care Team Description 05/27/2025 External Device Data [facility] ABSTRACTION Provider, Abstract 05/27/2025 External Device Data [facility] ABSTRACTION Provider, Abstract 05/26/2025 External Device Data [facility]STRACTION Provider, Abstract 04/09/2025 10:00 AM CDT Office Visit [facility] Oncology and Hematology - [place] [address] [place] [address] Negro Ann MD Malignant neoplasm of upper-outer quadrant of right breast in female, estrogen receptor positive (CMS/HCC) (Primary Dx) 04/01/2025 External Device Data [facility] ABSTRACTION Provider, Abstract 03/31/2025 External Device Data [facility] ABSTRACTION Provider, Abstract from Last 3 Months Family History Medical [...] Date Smoking Tobacco: Never Smokeless Tobacco: Never Tobacco Cessation:Counseling Given: Not Answered Alcohol Use Standard Drinks/Week Comments Yes 0 (1 standard drink = 0.6 oz pur e alcohol) Occasionally Comments Unknown Sex and Gender Information Value Date Recorded Sex Assigned at Not on file Legal Sex Female 2:30 PM CDT Gender Identity Not on file Sexual Orientation Not on file Last Filed Vital Signs Vital Sign Reading Time Taken Comments Blood Pressure 133/77 04/09/2025 9:55 AM CDT Pulse 64 04/09/2025 9:53 AM CDT Temperature 36.3 C (97.4 F) 04/09/2025 9:53 AM CDT Respiratory Rate 15 04/09/2025 9:53 AM CDT Oxygen Saturation 94% 04/09/2025 9:53 AM CDT Inhaled Oxygen Concentration - - Weight 91.1 kg (200 lb 12.8 oz) 04/09/2025 9:53 AM CDT Height 165.1 cm (5' 5) 02/20/2025 2:38 PM CDT Body Mass Index 33.41 02/20/2025 2:38 PM CDT Plan of Treatment Upcoming Encounters Date Type Department Care Team (Late st Contact Info) Description 06/17/2025 11:15 AM CDT Office Visit [facility] Oncology and Hematology - [place] [address] [place] [address] Negro Ann MD [address] [facility] [address] [place] [address] Health Maintenance Due Date Last [...] years 1-dose series) 2018 OSTEOPOROSIS SCREENING 2023 COVID-19 Vaccine ( - season) 2024 11/03/2021, 12/27/2020, 12/06/2020 Preventative Visit- Commercial 11/12/2024 INFLUENZA VACCINE (#1) 2025 Insurance MEDICARE PART A HOSPITAL ONLY [employer] [facility]ATURE [facility]MIN [facility]
--- OUTSIDE RECORDS SUMMARY | 2025-06-04 14:59 | XMS_ITS | Encounter Summary ---
Author Organization [facility] Address [address] [place] [address] Care Team Providers Care Breakfast Supervisor Name Role Phone Marycarmen Pascal MD Primary [...] RN Unavailable Unavailable Tito Schwartz MD Unavailable [phone] Encounter Details Date Type Department Care Team (Late st Contact Info) Description 01/06/2020 Lab Requisition [facility] Pathology Lab [address] [place] [address] Johnie Mendiola MD [address] [place] [address] Social History Tobacco Use Types Packs/Day Years Used Date Smoking Tobacco: Former Cigarettes Q uit: 07/28/1978 Smokeless Tobacco: Never Comments:only smoked occ in college Alcohol Use Standard Drinks/Week Comments Yes 1.7 (1 standard drink = 0.6 oz p ure alcohol) occ Comments Unknown Sex and Gender Information Value Date Recorded Sex Assigned at Not on file Legal Sex Female 5:40 PM ANGLEDOZER OPERATOR Gender Identity Female 02/13/2024 7:42 AM [...] Description 07/14/2025 9:00 AM CDT Office Visit [facility] - Nephrology [address] [facility], [facility] [place] [phone] Tito Schwartz MD [address] [place] [address] 08/05/2025 10:00 AM CDT Appointment [facility] CAT SCAN [address] [place] [phone] Ronnie Mcqueen MD [address] [place] [address] 08/05/2025 11:00 AM CDT Appointment [facility] CANCER CARE DRAWSTATION [address] [facility] [place] [address] 08/05/2025 11:40 AM CDT Office Visit [facility] - Hematology/Oncology [address] [place] [phone] Wai Tse MD [address] [facility] [place] [address] 08/13/2025 11:30 AM CDT Appointment [facility] RAD ONC [address] [place] [address] [place] [address] [place] [address] documented as of this encounter Procedures Procedure Name Priority Date/Time Associated Diagnosis Comments SLIDE PREP HISTOLOGY Routine 01/01/2020 8:42 AM ANGLEDOZER OPERATOR documented in this encounter Results * SLIDE PREP HISTOLOGY (01/01/2020 8:42 AM ANGLEDOZER OPERATOR) Client Specimen ID # [id number] 01/07/2020 6:02 PM ANGLEDOZER OPERATOR [facility] Number of Blocks Received 0 01/07/2020 6:02 PM ANGLEDOZER OPERATOR [facility] Number of Slides 1 01/07/2020 6:02 PM ANGLEDOZER OPERATOR [facility] Number of Control Slides 1 01/07/2020 6:02 PM ANGLEDOZER OPERATOR [facility] Pathology/Cytolo gy BIOPSY OF LUNG / Unknown 01/01/2020 8:42 AM ANGLEDOZER OPERATOR 01/06/2020 3:30 PM ANGLEDOZER OPERATOR Johnie Baum MD LAB - PATHOLOGY/CYTOLOGY ORD ERABLES Final Result [facility] [address] [facility] [place] [address], [facility] [phone] documented in this encounter Visit Diagnoses Not on filedocumented in this encounter Care Teams Breakfast Supervisor Relationship Specialty Start Date End Date Marycarmen Pascal MD PCP - General 03/27/19 06/21/21 Myriam Jorgensen MD [address] [place] [address] PCP - General Family Medicine 06/22/21 09/03/21 Marycarmen Pascal MD PCP - General 09/04/21 10/18/21 Myriam Jorgensen MD [address] [place] [address] PCP - General Family Medicine 10/19/21 10/19/21 Marycarmen Pascal MD PCP - General 10/20/21 12/08/21 Myriam Jorgensen MD [address] [place] [address] PCP - General Family Medicine 12/09/21 10/11/22 Allyson Snowden PA [address] [place] [address] PCP - General Physician Head Sampler 10/12/22 10/15/22 [place] [address] [place] [address] PCP - General 10/16/22 Nakita Kelly, RN Registered Nurse Hepatology 01/13/25 02/09/25 Tito Schwartz MD [address] OF [facility] [place], [place] Nephrology 01/13/25 02/09/25 documented as of this encounter
--- OUTSIDE RECORDS SUMMARY | 2025-06-04 14:59 | XMS_ITS | Clinical Summary ---
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 Active amLODIPine (NORVASC) 10 mg tablet TK 1 T PO QD 0 Active Active Problems Problem Noted Date Diagnosed Date S/p nephrectomy 09/23/2019 Primary osteoarthritis of right hip 06/02/2019 Overview (06/02/2019): Added automatically from request for surgery [id number] Primary malignant neoplasm 02/01/2014 Other pulmonary embolism [...] on file Legal Sex Female 11:13 AM PARK MAINTAINER Gender Identity Not on file Sexual Orientation Not on file Obstetrics History Last Filed Vital Signs Vital Sign Reading Time Taken Comments Blood Pressure 127/58 09/24/2019 2:58 PM PARK MAINTAINER Pulse 74 09/24/2019 2:58 PM PARK MAINTAINER Temperature 36.8 C (98.2 F) 09/24/2019 11:27 AM PARK MAINTAINER Respiratory Rate 18 09/24/2019 11:27 AM PARK MAINTAINER Oxygen Saturation 96% 09/24/2019 2:58 PM PARK MAINTAINER Inhaled Oxygen Concentration - - Weight 86.3 kg (190 lb 3.2 oz) 10/19/2020 9:55 A M PARK MAINTAINER Height 161.3 cm (5' 3.5) 10/19/2020 9:55 AM PARK MAINTAINER Body Mass Index 33.16 10/19/2020 9:55 AM PARK MAINTAINER Plan of Treatment Health Maintenance Due Date [...] 2024 11/03/2021, 12/27/2020, 12/06/2020 Influenza Vaccine (#1) 2025 , 08/12/2019, 08/07/2019, Additional history exists DTaP/Tdap/Td Vaccine (3 - Td or Tdap) 04/23/2027 04/23/2017, 03/20/2007 Hepatitis B Screening Completed 08/25/2021 Medical Devices Implanted Type Area Media Marketing Coordinator Device Identifier Shelf Expiration Date Model / Serial / Lot [employer] [id number] Screw Bone Trident Ii L25mm Od6.5mm Low Profile Hexagonal Sterile - S0 - [id number] Implanted:Qty: 1 on 09/23/2019 by Heber Whittaker MD at [facility] Screw Right: Hip [employer] [id number] 05/05/2024 8170-9577 / 0 / [id number] Description: Hip Left: Hip [employer] 2472-0646 Screw Bone Trident Ii L30mm Od6.5mm Low Profile Hexagonal Sterile - S0 - [id number] Implanted:Qty: 1 on 09/23/2019 by Heber Whittaker MD at [facility] Right: Hip [employer] [id number] 05/27/2024 9622-0675 / 0 / [id number] Description: [employer] 702-04-58f Shell Acetabular Trident Ii Tritanium F Od58mm Hip 5 Screw Hole Cluster Sterile - S0 - [id number] Implanted:Qty: 1 on 09/23/2019 by Heber Whittaker MD at [facility] Right: Hip [employer] [id number] 04/14/2024 702-04-58F / 0 / [id number] Description: [employer] 623-00-36f 36mm 7.9mm Hip 0d F Liner Acetabular X3 - S0 - [id number] Implanted:Qty: 1 on 09/23/2019 by Heber Whittaker MD at [facility] Right: Hip [employer] [id number] 06/14/2024 623-00-36F / 0 / [id number] Description: [employer] [id number] Accolade 102mm 30mm Modular Hip 127d 3 Taper Stem Femoral Sterile - S0 - [id number] Implanted:Qty: 1 on 09/23/2019 by Heber Whittaker MD at [facility] Right: Hip [employer] [id number] / 0 / [id number] Description: [employer] 6570-0-236 V40 36mm Anatomic Hip +5mm Offset Taper Head Femoral Biolox Delta - [id number] Implanted:Qty: 1 on 09/23/2019 by Heber Whittaker MD at [facility] Right: Hip [employer] [id number] 07/29/2024 6570-0-236 / / [id number] Description:kf Insurance [facility] CHOICE PLUS [facility] CHOICE PLUS Advance Directives For more information, please contact: [phone] * Full Code (Latest Code Status on File) Date Activated Date Inactivated Comments 09/23/2019 4:16 PM 09/24/2019 10:29 PM Care Teams Defect Cutter Relationship Specialty Start Date End Date Marycarmen Ruiz MD PCP - General Family Practice 04/28/19
--- OUTSIDE RECORDS SUMMARY | 2025-06-04 14:59 | XMS_ITS | Referral Summary ---
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 Active amLODIPine (NORVASC) 10 mg tablet TK 1 T PO QD 0 Active Active Problems Problem Noted Date Diagnosed Date S/p nephrectomy 09/23/2019 Primary osteoarthritis of right hip 06/02/2019 Overview (06/02/2019): Added automatically from request for surgery [id number] Primary malignant neoplasm 02/01/2014 Other pulmonary embolism [...] on file Legal Sex Female 11:13 AM COTTON WASHER Gender Identity Not on file Sexual Orientation Not on file Last Filed Vital Signs Vital Sign Reading Time Taken Comments Blood Pressure 127/58 09/24/2019 2:58 PM COTTON WASHER Pulse 74 09/24/2019 2:58 PM COTTON WASHER Temperature 36.8 C (98.2 F) 09/24/2019 11:27 AM COTTON WASHER Respiratory Rate 18 09/24/2019 11:27 AM COTTON WASHER Oxygen Saturation 96% 09/24/2019 2:58 PM COTTON WASHER Inhaled Oxygen Concentration - - Weight 86.3 kg (190 lb 3.2 oz) 10/19/2020 9:55 A M COTTON WASHER Height 161.3 cm (5' 3.5) 10/19/2020 9:55 AM COTTON WASHER Body Mass Index 33.16 10/19/2020 9:55 AM COTTON WASHER Plan of Treatment Not on file Medical Devices Implanted Type Area Damper Maker Device Identifier Shelf Expiration Date Model / Serial / Lot [employer] [id number] Screw Bone Trident Ii L25mm Od6.5mm Low Profile Hexagonal Sterile - S0 - [id number] Implanted:Qty: 1 on 09/23/2019 by Heber Whittaker MD at [facility] Screw Right: Hip [employer] [id number] 05/05/2024 3587-1791 / 0 / [id number] Description: Hip Left: Hip [employer] 7911-3588 Screw Bone Trident Ii L30mm Od6.5mm Low Profile Hexagonal Sterile - S0 - [id number] Implanted:Qty: 1 on 09/23/2019 by Heber Whittaker MD at [facility] Right: Hip [employer] [id number] 05/27/2024 9842-2743 / 0 / 4P4D Description: [employer] 702-04-58f Shell Acetabular Trident Ii Tritanium F Od58mm Hip 5 Screw Hole Cluster Sterile - S0 - [id number] Implanted:Qty: 1 on 09/23/2019 by Heber Whittaker MD at [facility] Right: Hip [employer] [id number] 04/14/2024 702-04-58F / 0 / [id number] Description: [employer] 623-00-36f 36mm 7.9mm Hip 0d F Liner Acetabular X3 - S0 - [id number] Implanted:Qty: 1 on 09/23/2019 by Heber Whittaker MD at [facility] Right: Hip [employer] [id number] 06/14/2024 623-00-36F / 0 / [id number] Description: [employer] [id number] Accolade 102mm 30mm Modular Hip 127d 3 Taper Stem Femoral Sterile - S0 - [id number] Implanted:Qty: 1 on 09/23/2019 by Heber Whittaker MD at [facility] Right: Hip [employer] [id number] / 0 / [id number] Description: [employer] 6570-0-236 V40 36mm Anatomic Hip +5mm Offset Taper Head Femoral [employer] Delta - [id number] Implanted:Qty: 1 on 09/23/2019 by Heber Whittaker MD at [facility] Right: Hip [employer] [id number] 07/29/2024 6570-0-236 / / [id number] Description:kf Insurance [facility] CHOICE PLUS [facility] PLUS Advance Directives For more information, please contact: [phone] * Full Code (Latest Code Status on File) Date Activated Date Inactivated Comments 09/23/2019 4:16 PM 09/24/2019 10:29 PM Care Teams Manager Interface Relationship Specialty Start Date End Date Marycarmen Ruiz MD PCP - General Family Practice 04/28/19
[2025-06-04 15:28] LABS: Hematocrit 42.7 % (37.0-47.0); Hemoglobin 14.8 g/dL (12.0-15.0); Immature Granulocyte Percent A 0.3 % (0-0.5); Lymphocytes Absolute Auto 1.28 K/mm3 (0.9-3.2); Mean Corpuscular HGB Conc 34.7 g/dl (32-36); Mean Corpuscular Hemoglobin 33.1 pg (26-34); Mean Corpuscular Volume 95.5 fl (80-100); Nucleated Red Blood Cells Absolute Auto 0.000 K/mm3 (0.0-0.012); Nucleated Red Blood Cells Perc 0.0 % (0.0-0.2); Platelet Count Result 240 k/mm3 (150-375); Red Blood Count 4.47 M/mm3 (4.2-5.4); White Blood Count 6.1 K/mm3 (4.5-10.0)
[2025-06-04 15:52] LABS: Alanine Aminotransferase 30 U/L (6-35); Albumin Level 4.5 g/dL (3.5-5.1); Alkaline Phosphatase 79 U/L (38-126); Anion Gap 8 mmol/L (4-12); Aspartate Amino Transferase 38 U/L (14-36); Bilirubin,Total 2.1 mg/dL (0.2-1.3); Blood Urea Nitrogen 10 mg/dL (7-17); Calcium 10.2 mg/dL (8.4-10.2); Carbon Dioxide 26 mmol/L (22-30); Chloride 100 mmol/L (98-107); Estimated Glomerular Filt Rate > 60; Glucose 95 mg/dL (65-110); Potassium 4.0 mmol/L (3.4-5.0); Sodium 134 mmol/L (137-145); Total Protein 7.7 g/dL (6.3-8.2)
== END 2025-06-04 14:57 | disposition home or self-care (01) ==
PROVIDERS: PCP Student in an Organized Health Care Education/Training Program; Visit Provider Internal Medicine Hematology & Oncology
DX: C50.411 Malignant neoplasm of upper-outer quadrant of right female breast (principal); Z17.0 Estrogen receptor positive status [ER+]
CPT/HCPCS: 36415; 80053; 85025; 86300